=== PATIENT | male | born 1945 | race Caucasian/White ===

== ENCOUNTER 2020-01-19 07:33 | Outpatient (CLI) | payer MEDICARE, SELFPAY ==
--- NOTE | 2020-01-19 08:52 | ECG_ITS ---
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 Interpretive Statements NAME OF STUDY: LEXISCAN SESTAMIBI STRESS TEST INDICATION: Chest Pain, LEXISCAN STRESS TEST ORDERING PHYSICIAN: Maurisio CLINICAL INFORMATION: Chest pain INTERPRETATION: 1. The patient was brought to the laboratory where Lexiscan was infused over 20 seconds. The resting blood pressure was 147/81. Maximum blood pressure was 147/81. The resting heart rate was 56 beats per minute. The maximum heart rate is 83 beats per minute. 2. The baseline electrocardiogram reveals sinus bradycardia with a right ventricular conduction delay and lack of R wave progression leads V1 through V4. 3. With Lexiscan infusion, there were no ST segment changes to suggest ischemia. 4. The patient experienced no symptoms or arrhythmias during the examination. CONCLUSION: 1. Unremarkable Lexiscan infusion. 2. Nuclear imaging to follow. Electronically Signed On 01-19-2020 15:38:00 CDT by Sander Forde M.D. [email or web address] [email or web address].Lodestone Social Media/store/OM/[id number]/[id number]
[2020-01-19 08:53] VITALS: BMI 32.1
--- NOTE | 2020-01-19 08:53 | NMCV_ITS ---
NM jr perf SPECT r/s* [id number] Jhon Marcos Age: 74 Gender: M : 1945 Exam Date: 01/19/2020 08:53 Ordering Phys: Sander Forde MD ([email or web address]) Technologist: PATTIE Chaudhry Exam Location: [facility] Indications: CHEST PAIN STRESS TEST Please see separate stress test report in [facility] for full findings IMAGE PROTOCOL Rest/Stress 1 Lexiscan Day Radiopharmaceutical Dose (mCi) Administration Site Administered by Rest: Tc-99m 10.9 IV PATTIE Chaudhry Sestamibi Stress:Tc-99m 32.1 IV PATTIE Chaudhry Sestamibi Rest: 19-Jan-2020 60 Discovery 630 Stress: 19-Jan-2020 30 Discovery 630 0.4mg Lexiscan. Images obtained in supine and prone position. SPECT RESULTS Technical Quality: Excellent Raw Data Analysis: Normal Image Corrections: No attenuation or motion correction applied Summed Stress Score: 3 Summed Rest Score: 2 Summed Difference Score: 2 PERFUSION FINDINGS Small sized perfusion abnormality of mild severity of basal to mid inferolateral wall with reversibility noted in mid inferolateral and apical lateral wall on stress images. FUNCTIONAL RESULTS (calculated via Gated SPECT) Stress Image LV EF (%): 76 Stress EDV (mL):96 TID: 0.82 Stress ESV (mL):23 FUNCTIONAL FINDINGS: The left ventricle is normal in size. Transient Ischemia Dilatation of 0.82. There is normal left ventricular systolic function. The left ventricular ejection fraction is normal with a value of 76%. There is normal left ventricular wall thickening. Normal end-diastolic and end-systolic volumes. IMPRESSIONS 1. Small sized perfusion abnormality of mild severity of basal to mid inferolateral wall with reversibility noted in mid inferolateral and apical lateral wall on stress images. 2. This is suggestive of small area of ischemia in circumflex artery territory. 3. Overall left ventricular systolic function is normal without regional wall motion abnormalities. 4. The left ventricular ejection fraction is normal with a value of 76%. 5. No prior similar studies to compare Gabriela Church MD (Electronically Signed) Final Date: 19 January 2020 16:24 S
[2020-01-19 09:41] VITALS: BP 143/74; PULSE 78
[2020-01-19] MEDS: regadenoson 0.4 Mg/5 ml Syringe IVP (09:41)
== END 2020-01-19 07:34 | disposition home or self-care (01) ==
LOC: RAD 07:40 → CDL 09:14
PROVIDERS: PCP Family Medicine; Visit Provider Internal Medicine Cardiovascular Disease
DX: R07.9 Chest pain, unspecified (principal); I25.9 Chronic ischemic heart disease, unspecified
CPT/HCPCS: 78452; 93017; A9500; J2785

== ENCOUNTER 2020-07-03 13:30 | Inpatient (IN) | payer MEDICARE, SELFPAY ==
[2020-07-03] VITALS (36 sets, daily range): BP systolic 142–185; BP diastolic 68–157; PULSE 91–109; RESP 8–27; TEMP 36.3–37.2; O2SAT 85–100; BMI 27.8
--- NOTE | 2020-07-03 13:49 | XR_ITS ---
WS: [id number] XR chest 1V portable [id number] REASON FOR EXAM: chest pain FINDINGS: The chest is unchanged compared to 07/26/2015. There is mild to moderate tortuosity of the thoracic a daniel. The heart is at the upper limits of normal in size. Calcified granulomatous changes in both hemithoraces. No active pulmonary parenchymal or pleural dise ase is noted. Right shoulder arthroplasty. Severe degenerative arthropathy in the left shoulder joint. XR/XR chest 1V portable [id number] IMPRESSION: No acute chest abnormality.
--- NOTE | 2020-07-03 13:50 | ECG_ITS ---
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1945 Requested By: Yg Mesa Order Number: [id number] Shannan MD: STUART REDMOND Measurements Intervals [place] Rate: 94 P: 47 CO: 169 QRS: -4 QRSD: 102 T: 28 QT: 371 QTc: 465 Interpretive Statements SINUS RHYTHM LOW QRS VOLTAGE IN PRECORDIAL LEADS [QRS DEFLECTION < 1.0 mV IN CHEST LEADS] INCOMPLETE RIGHT BUNDLE BRANCH BLOCK [90+ ms QRS DURATION, TERMINAL R IN V1/V2, 40+ ms S IN I/aVL/V4/V5/V6] Compared to ECG 07/25/2015 22:02:27 Myocardial infarct finding no longer present Electronically Signed On 07-03-2020 18:36:09 COMMUNITY NUTRITION EDUCATOR by STUART REDMOND [email or web address] [email or web address].SecureMedia/store/NU/[id number] f
--- NOTE | 2020-07-03 14:03 | W.ED.GENADLT ---
HPI - General Adult General: Chief complaint: General Medical Stated complaint: WEAK, DIZZY X 3 DAYS Time Seen by Provider: 07/03/20 13:31 History of Present Illness: HPI narrative: 59-year-old male presents emergency room complaining of dizziness nausea has not felt well for the last 1 to 2 weeks.. He has had a couple episodes of chest and abdominal pain. He characterizes the chest discomfort more as pressure he states it radiates to everywhere in his body it is worse with exertion and improves with rest. On one episode he took a sublingual nitro but he is unclear on whether or not it really improved anything. He has had associated shortness of breath with this but no diaphoresis. Patient has a known history of coronary artery disease. Onset (ago): week(s) Location: chest Severity: moderate Quality: aching and crushing Pain Consistency: intermittent Relieving factors: rest Exacerbating factors: movement (Exertion) Associated symptoms: Reports chest pain, decreased appetite, dyspnea, fevers/chills and malaise; Deny confusion, cough, diaphoresis, headache(s), nausea, rash, palpitations, seizures, short of breath, syncope, vomiting or weakness Review of Systems Const: Reports: malaise; Denies: diaphoresis ENMT: Denies: throat pain, ear or mastoid pain, nasal discharge or nasal congestion Card: Reports: chest pain; Denies: palpitations or syncope Resp: Reports: dyspnea GI: Denies: nausea or vomiting : Denies: flank pain, dysuria, urinary frequency or urinary urgency Skin/Breast: Denies: rash Neuro: Denies: headache(s) or confusion PFSH ED PFSH: Medical History (Updated 07/03/20 @ 16:15 by Yg Voss DO) ASHD (arteriosclerotic heart disease) Diabetes 1.5, managed as type 2 HTN (hypertension) Hyperlipidemia Surgical History (Updated 07/03/20 @ 16:15 by Yg Voss DO) S/P PTCA (percutaneous transluminal coronary angioplasty) Family History Mother Dementia Denies family history of Family history of premature coronary artery disease Social History Smoking and tobacco status: former smoker Alcohol intake: never Household members: spouse Marital status: service: No Current occupational status: retired Physical Exam Const: COMMON NORMALS: no acute distress GENERAL APPEARANCE: cooperative and comfortable ORIENTATION/CONSCIOUSNESS: Yes awake, Yes oriented to person, Yes oriented to place and Yes oriented to time HENMT: COMMON NORMALS: normocephalic, atraumatic and hearing grossly normal bilaterally HEAD & SCALP: normocephalic and atraumatic Eye: COMMON NORMALS: Equal, round and reactive pupils present, EOMs intact bilaterally and no scleral icterus EYELID: eyelid abnormality (Inner aspects eyelids absent any vascular markings) CONJUNCTIVA: Yes conjunctival abnormal (Pale no blood vessel markings noted whatsoever) PUPIL: Yes Equal, round and reactive pupils present Neck/C-Spine: COMMON NORMALS: no JVD Resp: COMMON NORMALS: normal respiratory effort, No retractions, No use of accessory muscles and clear to auscultation bilaterally AUSCULTATION: clear to auscultation bilaterally Cardio: COMMON NORMALS: no JVD, regular rate, regular rhythm and No murmurs present (Cardio) RATE: regular rate RHYTHM: regular rhythm GI: COMMON NORMALS: Soft to palpation and No hepatosplenomegaly present AUSCULTATION: Yes normoactive bowel sounds PALPATION: Yes Soft to palpation, No Tenderness to palpation present (GI), No Guarding due to palpation present (GI) and Yes No hepatosplenomegaly present Extremity: COMMON NORMALS: normal to inspection, capillary refill normal, no clubbing, cyanosis or edema and no calf tenderness NARRATIVE EXTREMITY EXAM: Skin excessively pale, no cyanosis GENERAL: Yes edema (Trace lower extremity edema) Neuro: SENSORIUM/ORIENTATION: Yes oriented to person, Yes oriented to place and Yes oriented to time Skin: COMMON NORMALS: no rashes or lesions noted GENERAL SKIN EXAM: no rashes or lesions noted Course Vital Signs: Vital signs: Vital Signs Temperature 98.1 F 07/03/20 13:35 Pulse Rate 96 07/03/20 13:35 Respiratory Rate 18 07/03/20 13:35 Blood Pressure 159/68 07/03/20 13:35 Pulse Oximetry 95 07/03/20 13:35 MDM - General Adult MDM Narrative: Medical decision making narrative: Hemoglobin is 4.6 creatinine is also elevated at 3.3 his usual creatinine is just below 2. Anemia labs done blood products were ordered we will go ahead and admit him transfusion we will give him Protonix as well. His stool was markedly heme positive is for prescription troponin is 35 we are waiting on a second 1 his white count is 22 interestingly his MCV is [address] Montes he will admit and see the patient in the emergency room orders are written. Lab Data: Labs: Lab Results 07/03/20 07/03/20 07/03/20 Range/Units 14:25 14:25 14:25 WBC 22.0 H (4.0-10.0) 10^3/ uL RBC 1.65 L (4.1-5.3) 10^6/u L Hgb 4.6 L* (11.7-16.6) g/dL Hct 15.0 L* (42.0-52.0) % MCV 90.9 (80-94) fL MCH 27.9 L (28.0-34.0) pg MCHC 30.7 (30.0-36.0) g/dL RDW 16.0 H (12.1-15.1) % Plt Count 362 (130-400) 10^3/c mm MPV 9.8 (7.4-10.4) fL Neut % (Auto) 76.7 % Lymph % (Auto) 15.4 % [place] % (Auto) 5.4 % Eos % (Auto) 0.0 % Baso % (Auto) 0.0 % Neut # (Auto) 16.89 H (1.8-7.7) 10^3/u L Lymph # (Auto) 3.4 (0.8-4.8) 10^3/u L [place] # (Auto) 1.2 H (0.2-0.9) 10^3/u L Eos # (Auto) 0.0 (0.0-0.8) 10^3/u L Baso # (Auto) 0.0 (0.0-0.1) 10^3/u L Nucleated RBC % (a uto) 0.3 % Nucleated RBCs # 0.1 /100WBC Sodium 132 L (136-145) mmol/L Potassium 4.8 (3.5-5.1) mmol/L Chloride 96 L (98-107) mmol/L Carbon Dioxide 12 L (22-29) mmol/L Anion Gap 28.8 H (5-19) BUN 98 H* (8-23) mg/dL Creatinine 3.3 H (0.7-1.2) mg/dL GFR Calculation Not Reportable Glucose 203 H (65-115) mg/dL Calculated Osmolal ity 310 H (285-295) mOsm/k g Calcium 9.3 (8.5-10.5) mg/dL Total Bilirubin 0.2 (0.15-1.2) mg/dL AST 7 (0-40) U/L ALT 10 (0-41) U/L Alkaline Phosphata se 91 (40-130) IU/L Troponin T Baselin e 35 H (0-15) ng/L Total Protein 6.0 L (6.6-8.7) g/dL Albumin 3.9 (3.5-5.2) g/dL Globulin 2.1 (1.3-4.6) g/dL Blood Type Rho(D) Type Antibody Screen Crossmatch 07/03/20 Range/Units 14:25 WBC (4.0-10.0) 10^3/ uL RBC (4.1-5.3) 10^6/u L Hgb (11.7-16.6) g/dL Hct (42.0-52.0) % MCV (80-94) fL MCH (28.0-34.0) pg MCHC (30.0-36.0) g/dL RDW (12.1-15.1) % Plt Count (130-400) 10^3/c mm MPV (7.4-10.4) fL Neut % (Auto) % Lymph % (Auto) % [place] % (Auto) % Eos % (Auto) % Baso % (Auto) % Neut # (Auto) (1.8-7.7) 10^3/u L Lymph # (Auto) (0.8-4.8) 10^3/u L [place] # (Auto) (0.2-0.9) 10^3/u L Eos # (Auto) (0.0-0.8) 10^3/u L Baso # (Auto) (0.0-0.1) 10^3/u L Nucleated RBC % (a uto) % Nucleated RBCs # /100WBC Sodium (136-145) mmol/L Potassium (3.5-5.1) mmol/L Chloride (98-107) mmol/L Carbon Dioxide (22-29) mmol/L Anion Gap (5-19) BUN (8-23) mg/dL Creatinine (0.7-1.2) mg/dL GFR Calculation Glucose (65-115) mg/dL Calculated Osmolal ity (285-295) mOsm/k g Calcium (8.5-10.5) mg/dL Total Bilirubin (0.15-1.2) mg/dL AST (0-40) U/L ALT (0-41) U/L Alkaline Phosphata se (40-130) IU/L Troponin T Baselin e (0-15) ng/L Total Protein (6.6-8.7) g/dL Albumin (3.5-5.2) g/dL Globulin (1.3-4.6) g/dL Blood Type O Positive Rho(D) Type Positive Antibody Screen Negative Crossmatch See Detail Discharge Plan Discharge Patient Disposition: Admitted As Inpatient Clinical Impression: Anemia, S/P PTCA (percutaneous transluminal coronary angioplasty), Hyperlipidemia, HTN (hypertension), Diabetes 1.5, managed as type 2, ASHD (arteriosclerotic heart disease), Acute GI bleeding, MAYTE (acute kidney injury), Chest pain Condition: Stable Coding Level of Care Code ED Care Management Assistant for Milind Fwd Exam Comprehensive
[2020-07-03 14:33] LABS: Lymphocytes # 3.4 10^3/uL (0.8-4.8); Lymphocytes % 15.4 %; Mean Corpuscular HGB Conc 30.7 g/dL (30.0-36.0); Mean Corpuscular Hemoglobin 27.9 pg (28.0-34.0); Mean Corpuscular Volume 90.9 fL (80-94); Mean Platelet Volume 9.8 fL (7.4-10.4); Monocytes # 1.2 10^3/uL (0.2-0.9); Monocytes % 5.4 %; Neutrophils # 16.89 10^3/uL (1.8-7.7); Neutrophils % 76.7 %; Nucleated Red Blood Cells # 0.1 /100WBC; Nucleated Red Blood Cells % 0.3 %; Platelet Count 362 10^3/cmm (130-400); Red Blood Count 1.65 10^6/uL (4.1-5.3)
[2020-07-03 14:34] LABS: Hemoglobin 4.6 g/dL (11.7-16.6)
[2020-07-03 15:05] LABS: Alanine Aminotransferase 10 U/L (0-41); Albumin Level 3.9 g/dL (3.5-5.2); Alkaline Phosphatase 91 IU/L (40-130); Anion Gap 28.8 (5-19); Aspartate Amino Transferase 7 U/L (0-40); Calcium 9.3 mg/dL (8.5-10.5); Carbon Dioxide 12 mmol/L (22-29); Chloride 96 mmol/L (98-107); Globulin 2.1 g/dL (1.3-4.6); Glucose 203 mg/dL (65-115); Osmolality Calculated 310 mOsm/kg (285-295); Potassium 4.8 mmol/L (3.5-5.1); Sodium 132 mmol/L (136-145); Total Bilirubin 0.2 mg/dL (0.15-1.2); Troponin(5th) Baseline 35 ng/L (0-15)
[2020-07-03 15:06] LABS: Blood Urea Nitrogen 98 mg/dL (8-23)
[2020-07-03] MEDS: pantoprazole 40 mg SDV IVP ×2 (15:47→21:00)
[2020-07-03] MEDS: sodium chloride 0.9% 1,000 ML 999 ML IV (15:48)
--- NOTE | 2020-07-03 15:50 | ECG_ITS ---
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1945 Requested By: Yg Mesa Order Number: [id number] Reading MD: STUART REDMOND Measurements Intervals [place] Rate: 96 P: 48 NH: 179 QRS: -12 QRSD: 90 T: 8 QT: 279 QTc: 354 Interpretive Statements SINUS RHYTHM LOW QRS VOLTAGE IN PRECORDIAL LEADS [QRS DEFLECTION < 1.0 mV IN CHEST LEADS] INFERIOR MYOCARDIAL INFARCTION , PROBABLY OLD [40+ ms Q WAVE AND/OR ST/T ABNORMALITY IN II/aVF] Compared to ECG 07/03/2020 13:51:21 Myocardial infarct finding now present Incomplete right bundle-branch block no longer present Electronically Signed On 07-03-2020 18:40:22 SPARES SCHEDULER by STUART REDMOND [email or web address] general [email or web address] hospital.EpiSensor/store/NU/[id number] f
[2020-07-03 16:38] LABS: Add Urine Microscopic? NO
[2020-07-03 16:45] LABS: Bilirubin Urine Neg (Negative); Blood Urine Neg (Negative); Glucose Urine UA Norm (Normal); Ketones Urine Negative (Negative); Leukocyte Esterase Urine Negative (Negative); Nitrate Urine Negative (Negative); Protein Urine Neg (Negative); Specific Gravity, Urine 1.015 (1.005-1.030); Urine Appearance Clear (CLEAR); Urine Color Straw (Yellow); Urobilinogen Urine Norm (Negative); pH Urine 5 (5-7)
--- NOTE | 2020-07-03 17:24 | P.HP_ITS ---
Providers/Chief Complaint Primary Care Provider: Ramiro Villavicencio MD Chief Complaint: WEAK, DIZZY X 3 DAYS History of Present Illness 75-year-old male with a past medical history essential tremor, erectile dysfunction,hypertension, dyslipidemia, diabetes mellitus, coronary artery disease with hx of multiple PCI/Stent x 7 and prior GI bleed on brelinta who is presented to the hospital with 1 week history of dark stools. This was assoc iated with nausea and emesis of which patient noted one episode to be coffee ground in nature. He started to feel weak and dizzy today. Presented to Dr. Villavicencio( PCP) office today after which he was directed to ER. During this time he also noted intermittent episodes of chest heaviness. Denied shortness of breath. No fever or chills. Denied abdominal pain. Upon arrival to ER his laboratory work up showed WBC of 22.0, hemoglobin 4.6, hematocrit 15.0 and a platelet count of 362. sodium 132, potassium 4.8, chloride 96, bicarb 12, BUN 98 and creatinine of 3.3. No prior creatinine to compare. Troponin T baseline was 35. iron studies, vitamin B12 and folate were sent prior to transfusion and pending. Urinalysis was negative. In ER patient was started on 2 units of PRBC transfusion, IVF and Protonix gtt. Review of Systems General: Reports: 10 or more systems reviewed and unremarkable except in HPI and below Medications/Allergies Home Medications Medication Instructions Recorded Confirmed Last Taken Type alprazolam 1 mg tablet 1 mg PO TID PRN 11/22/19 07/03/20 07/02/20 History amlodipine 5 mg tablet 5 mg PO BID@11/22/19 07/03/20 07/02/20 History atorvastatin 40 mg tablet 40 mg PO DAILY@2100 11/22/19 07/03/20 07/02/20 History bupropion HCl 150 mg 24 hr tablet, 150 mg PO DAILY@0800 11/22/19 07/03/20 07/02/20 History extended release carbidopa 25 mg-levodopa 100 mg 1 tab PO BID@11/22/19 07/03/20 07/02/20 History tablet citalopram 40 mg tablet 40 mg PO DAILY@0800 tab 11/22/19 07/03/20 07/02/20 History clopidogrel 75 mg tablet 75 mg PO DAILY@0800 11/22/19 07/03/20 07/02/20 History metformin 1,000 mg tablet 1,000 mg PO BID@0800,2100 11/22/19 07/03/20 07/02/20 History montelukast 10 mg tablet 10 mg PO DAILY@0800 11/22/19 07/03/20 07/02/20 History nitroglycerin 0.4 mg sublingual 0.4 mg SUBLINGUAL Q5M PRN 11/22/19 07/03/20 Unknown History tablet propranolol 80 mg capsule,24 80 mg PO DAILY@0800 11/22/19 07/03/20 07/02/20 History hr,extended release quetiapine 50 mg tablet 50 mg PO DAILY@0800 11/22/19 07/03/20 07/02/20 History bisoprolol-hydrochlorothiazide 1 tab PO DAILY@0800 07/03/20 07/03/20 07/02/20 History Allergies Allergy/AdvReac Type Severity Reaction Status Date / Time Penicillins Allergy Unknown Unknown Verified 11/22/19 14:11 PFSH Acute PFSH: Medical History (Updated 07/03/20 @ 17:47 by Santosh Goldsmith MD) ASHD (arteriosclerotic heart disease) Diabetes 1.5, managed as type 2 HTN (hypertension) Hyperlipidemia Surgical History (Updated 07/03/20 @ 16:15 by Yg Voss DO) S/P PTCA (percutaneous transluminal coronary angioplasty) Family History Mother Dementia Denies family history of Family history of premature coronary artery disease Social History Smoking and tobacco status: former smoker Alcohol intake: never Household members: spouse Marital status: service: No Current occupational status: retired Vitals/I&O/Wt Last Vital Signs Temp 97.3 F L 07/03/20 16:44 Pulse 102 H 07/03/20 17:00 Resp 21 H 07/03/20 17:00 BP 142/85 07/03/20 17:00 Pulse Ox 95 07/03/20 17:00 07/03/20 07/03/20 07/03/20 06:59 14:59 22:59 Intake Total 0 / 0 Balance 0 / 0 Weight last 48 hrs Weight 90.718 kg Physical Exam Narrative: EXAM NARRATIVE: General : Alert, Awake and oriented x 3 HEENT : Grossly unremarkable CVS : Tachycardic CHEST : non-labored respiration ABD: Soft , Non-tender, Nondistended Ext : no edema, Data : 07/03/20 14:25 07/03/20 14:25 A&P Assessment and plan (1) Acute GI bleeding: Status: Acute (2) MAYTE (acute kidney injury): Status: Acute (3) Chest pain: Status: Acute (4) HTN (hypertension): Status: Acute (5) Hyperlipidemia: Status: Acute (6) S/P PTCA (percutaneous transluminal coronary angioplasty): Status: Acute (7) Acute blood loss anemia: Status: Acute (8) Leukocytosis: Status: Acute (9) Diabetes 1.5, managed as type 2: Status: Acute Acute blood loss anemia due to GI bleed - Suspected upper - HOLD Plavix 75 mg PO daily - Hb 4.6 on admission - 2 units of PRBC transfusion ordered - Repeat H/H 1 hour post second unit - H/H q6hr after - Keep Hb > 8.0 - Will obtain CT abdomen/pelvis w/o contrast ( due to renal failure ) - General surgery consulted - NPO no exceptions now - Follow up anemia work up sent in ER Chest pain in setting of CAD s/p hx of PCI/Stent x 7 - Will consider cardiology consult - Hold Plavix - Recent stress test in 01/18 noted showing small sized perfusion abnormality in circumflex artery territory. - Will obtain ECHO - Baseline trop - 35 - follow up on repeat - Monitor on telemetry Acute kidney failure - Creatinine 3.3 - Likely due to acute bleed - Continue IVF / PRBC transfusion - Conteh insertion - Monitor urine output - Renally dose medication Leukocytosis - WBC 22.0 - Likely reactive - No obvious source of bleeding - Monitor off antibiotics - Repeat CBC in am - Check Pro-calcitonin Diabetes Mellitus - Hold metformin - q6hr blood sugar checks - Sliding scale insulin Hypertension - Holding home meds due to above - May consider PRN Lopressor Dyslipidemia - Holding statin due to above Essential Tremor - Holding propranolol / Sinemet DVT ppx - SCDS only Prognosis: Guarded Code Status :D/w patient/ - FULL CODE Attestations Medical Necessity Statement*: Patient will likely require over 2 midnight stay in hospital for treatment of profound symptomatic anemia, acute renal insufficiency, leukocytosis requiring blood transfusion, IV fluids in general surgery consultation Time Spent in Patient Care: Greater than 35 minutes (>than 50% of time spent in counselling and/or direct pt care on unit) . Coding Level of Care Code Acute Tree Driller for [facility] Fwd Diagnoses Acute GI bleeding K92.2 MAYTE (acute kidney injury) N17.9 Chest pain R07.9 HTN (hypertension) I10 Hyperlipidemia E78.5 S/P PTCA (percutaneous transluminal coronary angioplasty) Z98.61 Acute blood loss anemia D62 Leukocytosis D72.829 Diabetes 1.5, managed as type 2 E13.9
[2020-07-03 17:32] LABS: Troponin 5 2HR 31.55 ng/L (0-15)
[2020-07-03 17:34] LABS: Troponin 5 2HR Delta -3.45 ABS# (0-10)
[2020-07-03 17:42] LABS: Iron 202 ug/dL (59-158); Percent Saturation 60.6 % (20-50); Total Iron Binding Capacity 333 mcg/dl; Unsaturated Iron Binding 131 ug/dL (112-347); Vitamin B12 150 pg/mL (232-1245)
--- NOTE | 2020-07-03 17:52 | CTR_ITS ---
PROCEDURE INFORMATION: Exam: CT Abdomen And Pelvis Without Contrast Exam date and time: 07/03/2020 6:30 PM Age: 75 years old Clinical indication: Abdominal pain; Other: Pressure; Additional info: Gi bleed, ana maria TECHNIQUE: Imaging protocol: Computed tomography of the abdomen and pelvis without contrast. Radiation optimization: All CT scans at this facility use at least one of these dose optimization techniques: automated exposure control; mA and/or kV adjustment per patient size (includes targeted exams where dose is matched to clinical indication); or iterative reconstruction. COMPARISON: CR Hip 2-3v RIGHT wwo Pelv* [id number] 08/01/2014 9:44 AM RADIATION DOSE METRICS: Total DLP (mGy-cm): 1132.02 FINDINGS: Limitations: The absence of intravenous contrast lessens the sensitivity of this study for solid organ abnormalities. Liver: The liver demonstrates punctate calcifications, consistent with remote granulomatous organism exposure. Gallbladder and bile ducts: The gallbladder is normal. Pancreas: There is left inguinal hernia containing only fatThe pancreas is normal. Spleen: The spleen demonstrates punctate calcifications, consistent with remote granulomatous organism exposure. Adrenal glands: The adrenal glands are normal. Kidneys and ureters: There are multiple simple renal cysts. There is no evidence of hydronephrosis. There is no evidence of renal or ureteral calcifications. Stomach and bowel: Mild diverticulosis is present in the distal colon. There is no evidence of colitis/diverticulitis. Appendix: A normal appendix is identified. Intraperitoneal space: Unremarkable. No free air. No significant fluid collection. Vasculature: The aorta demonstrates mild atherosclerotic calcification. There is no evidence of an abdominal aortic aneurysm. Lymph nodes: Unremarkable. No enlarged lymph nodes. Urinary bladder: Unremarkable as visualized. Reproductive: Unremarkable as visualized. Bones/joints: The lumbar spine demonstrates marked degenerative changes at multiple levels. There are findings suggesting stenosis at L2-L3 and L3-L4. Soft tissues: Unremarkable. CT/CT abdomen pelvis wo con [id number] IMPRESSION: 1. No acute findings. 2. Bilateral renal cysts. 3. Left inguinal hernia containing fat. 4. Lumbar spondylosis COMMENTS: Consistent with the [place] [employer]'s Incidental Findings Committee white paper (J Am Jania Radiol 2018): Any incidental renal lesion less than 1 cm or classified as too small to characterize, or any incidental cystic renal lesion characterized as simple-appearing, is likely benign. No follow-up imaging is recommended for these lesions per consensus recommendations based on imaging criteria. Radiation Dose CTDIVOL = (mGy): DLP = 1132.02 (mGy-cm)
[2020-07-03] MEDS: sodium chloride 0.9% (100 ml) 100 ML (18:20)
[2020-07-03] MEDS: sodium chloride 0.9% 1,000 ML 50 ML IV (18:33)
[2020-07-03 18:57] LABS: Folate Level 7.8 ng/mL (4.5-32.2)
[2020-07-03 19:12] LABS: Glucose Point of Care 157 mg/dL (70-110)
--- NOTE | 2020-07-03 19:29 | PC.NURSE ---
Report received from Sariah COX. Sariah reports stool collected but unable to collect in system. Collected in system by this nurse. Marked collected per Sariah verbal report
--- NOTE | 2020-07-03 19:50 | ECG_ITS ---
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 Measurements Intervals [place] Rate: 98 P: 91 VA: 188 QRS: -17 QRSD: 106 T: -8 QT: 301 QTc: 384 Interpretive Statements SINUS RHYTHM SEPTAL MYOCARDIAL INFARCTION [40+ ms Q WAVE IN V1/V2], OF INDETERMINATE AGE INFERIOR MYOCARDIAL INFARCTION [40+ ms Q WAVE AND/OR ST/T ABNORMALITY IN II/aVF], PROBABLY OLD Compared to ECG 07/03/2020 15:45:36 No significant changes Electronically Signed On 07-04-2020 17:14:32 ADVANCED RESEARCH PROGRAMS DIRECTOR by Gabriela Church M.D. [email or web address]/[id number]
[2020-07-03 20:50] LABS: Glucose Point of Care 162 mg/dL (70-110)
[2020-07-03] MEDS: sodium chloride 0.9% 1,000 ML 100 ML IV (21:00)
[2020-07-03 22:21] LABS: Hematocrit 21.2 % (42.0-52.0); Hemoglobin 6.9 g/dL (11.7-16.6)
[2020-07-03 22:33] LABS: Troponin 5 6HR 33.44 ng/L (0-15)
[2020-07-03 22:34] LABS: Troponin 5 6HR Delta -1.56 ng/L (0-12)
[2020-07-04] VITALS (91 sets, daily range): BP systolic 106–194; BP diastolic 55–132; PULSE 87–152; RESP 14–31; TEMP 36.4–37.1; O2SAT 66–100
[2020-07-04 06:41] LABS: Basophils % 0.1 %; Eosinophils % 0.1 %; Hematocrit 22.7 % (42.0-52.0); Hemoglobin 7.5 g/dL (11.7-16.6); Lymphocytes # 1.7 10^3/uL (0.8-4.8); Lymphocytes % 10.2 %; Mean Corpuscular Hemoglobin 29.5 pg (28.0-34.0); Mean Corpuscular Volume 89.4 fL (80-94); Mean Platelet Volume 9.9 fL (7.4-10.4); Monocytes # 1.8 10^3/uL (0.2-0.9); Monocytes % 10.8 %; Neutrophils # 12.84 10^3/uL (1.8-7.7); Neutrophils % 77.2 %; Nucleated Red Blood Cells # 0.1 /100WBC; Nucleated Red Blood Cells % 0.7 %; Platelet Count 290 10^3/cmm (130-400); Red Blood Count 2.54 10^6/uL (4.1-5.3); Red Cell Distribution Width 15.9 % (12.1-15.1); White Blood Count 16.6 10^3/uL (4.0-10.0)
--- NOTE | 2020-07-04 07:00 | USCV_ITS ---
Jhon Marcos Age: 75 Gender: M : 1945 Exam Date: 07/04/2020 07:24 Ordering Phys: Santosh Goldsmith MD Technologist: Anny Vallecillo Exam Location: [facility] [place] Indication: Chest Pain BP: 138 / 77 HR: 88 Rhythm: Sinus Technical Quality: Adequate MEASUREMENTS (Male / Female) Normal Values 2D ECHO LV Diastolic Diameter PLAX 4.2 cm 4.2 - 5.9 / 3.9 - 5.3 cm LV Systolic Diameter PLAX 2.2 cm LV Chamber Size 3.0 cm IVS Diastolic Thickness 1.3 cm 0.6 - 1.0 / 0.6 - 0.9 cm IVS Systolic Thickness 1.8 cm LVPW Diastolic Thickness 2.2 cm 0.6 - 1.0 / 0.6 - 0.9 cm LVPW Systolic Thickness 2.5 cm RV Chamber Size 3.8 cm LVOT Diameter 2.1 cm LV Ejection Fraction 2D Teich 79.0 % LV Ejection Fraction MOD 2C 64.7 % LV Ejection Fraction 2C AL 64.6 % LA Diameter 3.6 cm LA Width 3.2 cm LA Height 3.5 cm RA Width 2.9 cm RA Height 4.3 cm Aorta at Sinotubular Diameter 2.4 cm M-MODE LV Diastolic Diameter MM 6.0 cm 4.2 - 5.9 / 3.9 - 5.3 cm LV Systolic Diameter MM 4.1 cm LV Ejection Fraction MM Teich 58.6 % IVS Diastolic Thickness MM 1.1 cm 0.6 - 1.0 / 0.6 - 0.9 cm IVS Systolic Thickness MM 1.2 cm LVPW Diastolic Thickness MM 1.5 cm 0.6 - 1.0 / 0.6 - 0.9 cm LVPW Systolic Thickness MM 2.0 cm Aortic Annulus Diameter 3.5 cm LA Ao Ratio MM 1.2 MV E Point Septal Separation 0.7 cm DOPPLER AV Peak Velocity 166.0 cm/s LVOT Peak Velocity 96.0 cm/s AV Area Cont Eq vti 2.4 cm squared AV Area Cont Eq pk 2.0 cm squared MV Area PHT 4.4 cm squared Mitral E to A Ratio 0.9 MV E' Velocity 51.5 cm/s Mitral E to MV E' Ratio 7.1 Mitral E to LV E' Lateral Ratio 5.4 Mitral E to LV E' Septal Ratio 10.3 TR Peak Velocity 190.0 cm/s TR Peak Gradient 14.4 mmHg TV Peak E Velocity 75.0 cm/s Right Atrial Pressure 3.0 mmHg Pulmonary Artery Systolic Pressu 17.4 mmHg PV Peak Velocity 96.0 cm/s RV Acceleration Time 0.2 s RV Ejection Time 0.3 s RV AcT/ET 0.6 FINDINGS Left Ventricle Normal left ventricular size and systolic function, EF 58 %. Grade I/IV diastolic dysfunction (abnormal relaxation filling pattern), normal to mildly elevated filling pressures. Right Ventricle Moderately increased right ventricular size. Transverse echodense structure in the right ventricular apex Right Atrium Moderately increased right atrial size. Left Atrium The left atrium is normal in size. Mitral Valve No gross abnormalities noted Aortic Valve No gross abnormalities noted Tricuspid Valve Trace to mild tricuspid valve regurgitation. Pulmonic Valve Pulmonic valve not well visualized. Pericardium Small pericardial effusion. Aorta Normal ascending aorta dimension. CONCLUSIONS Normal left ventricular size and systolic function, EF 58 %. Grade I/IV diastolic dysfunction (abnormal relaxation filling pattern), normal to mildly elevated filling pressures. Trace to mild tricuspid valve regurgitation. Estimated pulmonary artery peak systolic pressure of 17 mmHg Small pericardial effusion. There are no intracardiac masses. Compared to the study from my 02/27/2015, the pericardial effusion and the enlargement of the right atrium appear to be new Dr Meghan Gillespie MD FACC (Electronically Signed) Final Date: 05 July 2020 01:19 S
[2020-07-04 07:01] LABS: Alanine Aminotransferase 11 U/L (0-41); Albumin Level 3.8 g/dL (3.5-5.2); Alkaline Phosphatase 88 IU/L (40-130); Calcium 8.8 mg/dL (8.5-10.5); Carbon Dioxide 16 mmol/L (22-29); Chloride 104 mmol/L (98-107); Globulin 2.1 g/dL (1.3-4.6); Glucose 162 mg/dL (65-115); Osmolality Calculated 307 mOsm/kg (285-295); Sodium 134 mmol/L (136-145); Total Bilirubin 0.6 mg/dL (0.15-1.2); Total Protein 5.9 g/dL (6.6-8.7)
[2020-07-04 07:07] LABS: Blood Urea Nitrogen 83 mg/dL (8-23)
[2020-07-04 07:08] LABS: Aspartate Amino Transferase 10 U/L (0-40)
[2020-07-04 07:50] LABS: Glucose Point of Care 166 mg/dL (70-110)
[2020-07-04] MEDS: hyDRALAzine 20 mg/mL INJ 1 mL 10 MG IVP (07:56)
--- NOTE | 2020-07-04 08:21 | PC.CHAP ---
Pastoral Care Encounter/Spiritual Assessment Type of Contact [] Declined fitting room maintenance mechanic visit [] Patient/Family/Request visit [] Outpatient visit [] Follow-up visit [] Physician referral [] Code/Alert [] Routine visit [] Staff referral [] Actively dying [] Patient sleeping [] Family support [] [] Out of room [] Palliative care [] [] Receiving care in room [] Pre-surgical visit [] Trauma [] Long length of stay [] ICU visit [] Other: Relational/Emotional Strength [] Patient feels connected with others/family/visitors/staff [] Distress [] Loneliness/isolation [] Abandonment Spirituality of Patient [] Person of Alice [] Attends Zoroastrian of their Alice [] Believes in Prayer [] Reads Bible or Episcopal materials [] There are Spiritual issues to be addressed Community Engagement Leader Interventions [x] Prayer [] Active listening [] Non-anxious presence [] Spiritual/emotional support [] Crisis/trauma care [] Spiritual counseling [] Bereavement support [] Provided bereavement packet [] Provided Bible/devotional materials [] Provided toy/stuffed animal, coloring book to patient or family member [] Provided Communion [] Anointing/Fiatt [] Salvation [x] Completed spiritual assessment [] Other: Impact on Illness or Injury [] Angry [] Fearful [] Anxious [] Often cries [] Exhaustion [] Unable to work [] Unable to attend taoism [] Unable to walk/stand [] Unable to read [] Unable to drive [] Unable to eat/drink [] Unable to sleep [] Unable to be with family [] Patient intubated [] Other: Summary Time spent with patient
[2020-07-04] MEDS: sodium chloride 0.9% 1,000 ML 100 ML IV (09:34)
[2020-07-04 11:33] LABS: Glucose Point of Care 150 mg/dL (70-110)
[2020-07-04] MEDS: pantoprazole 40 mg SDV IVP ×2 (12:32→22:47)
--- NOTE | 2020-07-04 12:54 | PM.PN ---
Subjective Subjective: Interval history: Patient remained stable overnight. No recurrence of chest pressure. Respiratory status stable. Was noted to be hypertensive this morning. Received hydralazine. No further blood emesis or bowel movement. Vitals/I&O/Wt Last Vital Signs Temp 98.0 F 07/04/20 07:30 Pulse 91 07/04/20 09:15 Resp 20 H 07/04/20 09:15 BP 152/73 07/04/20 09:15 Pulse Ox 99 07/04/20 09:15 07/03/20 07/04/20 07/04/20 22:59 06:59 14:59 Intake Total 350 / 350 400 / 750 1000 / 1000 Output Total 1000 / 1000 950 / 950 Balance 350 / 350 -600 / -250 50 / 50 Weight last 48 hrs Weight 90.718 kg Physical Exam Narrative: EXAM NARRATIVE: General : Alert, Awake and oriented x 3 HEENT : Grossly unremarkable CVS : NSR CHEST : non-labored respiration ABD: Soft , Non-tender, Nondistended Ext : no edema, Data : 07/04/20 06:27 07/04/20 06:27 Micro: Microbiology 07/03/20 22:05 Blood Culture - Preliminary Blood SPECIMEN COLLECTED 07/03/20 17:20 Blood Culture - Preliminary Blood SPECIMEN COLLECTED A&P Assessment and plan (1) Acute GI bleeding: Status: Acute (2) MAYTE (acute kidney injury): Status: Acute (3) Chest pain: Status: Acute (4) HTN (hypertension): Status: Acute (5) Hyperlipidemia: Status: Acute (6) S/P PTCA (percutaneous transluminal coronary angioplasty): Status: Acute (7) Acute blood loss anemia: Status: Acute (8) Leukocytosis: Status: Acute (9) Diabetes 1.5, managed as type 2: Status: Acute Acute blood loss anemia due to GI bleed - Suspected upper - HOLD Plavix 75 mg PO daily - Hb 4.6 on admission - 2 units of PRBC transfusion ordered - Repeat H/H improved to 7.5 - Additional unit of PRBC x 1 ordered now - H/H q8hr after transfusion - Keep Hb > 8.0 due to cardiac history - CT abdomen/pelvis w/o contrast - no acute abnormality - General surgery consulted - NPO no exceptions now - Follow up anemia work up sent in ER - Likely will require EGD - Continue on protonix gtt. Chest pain in setting of CAD s/p hx of PCI/Stent x 7 - Will consider cardiology consult - Hold Plavix - Recent stress test in 01/18 noted showing small sized perfusion abnormality in circumflex artery territory. - Will obtain ECHO - pending - Baseline trop - 35 - follow up on repeat - Monitor on telemetry - Maintain Hb > 8.0 Acute kidney failure - Creatinine 3.3 - 2.6 - Likely due to acute bleed - Continue IVF / PRBC transfusion - Monitor urine output - Renally dose medication - Obtain renal US Leukocytosis - Improving off abx - WBC 22.0 - 16.6 - Likely reactive - No obvious source of infection - Monitor off antibiotics - Repeat CBC in am Diabetes Mellitus - Hold metformin - q6hr blood sugar checks - Sliding scale insulin Hypertension - Holding home meds due to above - May consider PRN hydralazine 5 mg IV Q4hr - For SBP > 170 or DBP > 100 Dyslipidemia - Holding statin due to above Essential Tremor - Holding propranolol / Sinemet DVT ppx - SCDS only Code Status :D/w patient/ - FULL CODE Disposition : Likely to return home once medically stable. Ok to transfer to [facility] today. Attestations Medical Necessity Statement*: Will require further hospitalization for GI bleed, anemia requiring transfusion, renal failure requiring IV fluids anticipated additional 1 to 2 days in hospital. Time Spent in Patient Care: Greater than 35 minutes (>than 50% of time spent in counselling and/or direct pt care on unit). 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
[2020-07-04 17:41] LABS: Glucose Point of Care 148 mg/dL (70-110)
--- NOTE | 2020-07-04 18:03 | P.CONIM_ITS ---
Providers/Reason For Consult Consulting Physican/Specialty*: Ramiro Villavicencio MD Reason for Consult*: GI bleed Attending Physician: Santosh Goldsmith Primary Care Provider: Ramiro Villavicencio MD History of Present Illness History of Present Illness Jhon Marcos is a 75 year old male who was admitted to the hospital recently with 1 week history of dark stools. Patient also had an episode of nausea and vomiting 1 of which was coffee-ground in nature. He was seen by his PCP who referred him to the ER and he was noted to have a hemoglobin of 4.6 on initial evaluation. At present he denies any abdominal pain, nausea, vomiting, denies any history of peptic ulcer disease. No evidence of active GI bleed. He states that his last colonoscopy was many years ago Review of Systems General: Reports: 10 or more systems reviewed and unremarkable except in HPI and below Meds/Allergies Home Medications and Allergies Home Medications Medication Instructions Recorded Confirmed Last Taken Type alprazolam 1 mg tablet 1 mg PO TID PRN 11/22/19 07/03/20 07/02/20 History amlodipine 5 mg tablet 5 mg PO BID@11/22/19 07/03/20 07/02/20 History atorvastatin 40 mg tablet 40 mg PO DAILY@209911/22/19 07/03/20 07/02/20 History bupropion HCl 150 mg 24 hr tablet, 150 mg PO DAILY@79911/22/19 07/03/20 07/02/20 History extended release carbidopa 25 mg-levodopa 100 mg 1 tab PO BID@11/22/19 07/03/20 07/02/20 History tablet citalopram 40 mg tablet 40 mg PO DAILY@0800 tab 11/22/19 07/03/20 07/02/20 History clopidogrel 75 mg tablet 75 mg PO DAILY@79911/22/19 07/03/20 07/02/20 History metformin 1,000 mg tablet 1,000 mg PO BID@0800,209911/22/19 07/03/20 07/02/20 History montelukast 10 mg tablet 10 mg PO DAILY@0800 11/22/19 07/03/20 07/02/20 History nitroglycerin 0.4 mg sublingual 0.4 mg SUBLINGUAL Q5M PRN 11/22/19 07/03/20 Unknown History tablet propranolol 80 mg capsule,24 80 mg PO DAILY@0800 11/22/19 07/03/20 07/02/20 History hr,extended release quetiapine 50 mg tablet See Rx Instructions .ROUTE .COMPLEX 11/22/19 07/03/20 07/02/20 History bisoprolol-hydrochlorothiazide 1 tab PO DAILY@0800 07/03/20 07/03/20 07/02/20 History Allergies Allergy/AdvReac Type Severity Reaction Status Date / Time Penicillins Allergy Unknown Unknown Verified 07/03/20 21:12 Current Medications Current Medications Generic Name Dose Route Start Last Admin Trade Name Freq PRN Reason Stop Dose Admin Sodium Chloride 1,000 mls @ 50 mls/hr 07/03/20 17:00 07/03/20 18:33 Sodium Chloride 0.9% IV 50 mls/hr .Q20H JOSEPHINE Administration Sodium Chloride 1,000 mls @ 100 mls/hr 07/03/20 18:00 07/04/20 15:41 Sodium Chloride 0.9% IV Not Given .Q10H JOSEPHINE Sodium Chloride 1,000 mls @ 100 mls/hr 07/03/20 21:57 07/04/20 09:37 Sodium Chloride 0.9% IV Not Given .Q10H JOSEPHINE Insulin Aspart 0 unit 07/03/20 18:00 07/04/20 12:00 Insulin Aspart 100 Unit/1 Ml SUBCUT Not Given WM&BEDTIME JOSEPHINE Protocol Pantoprazole Sodium 40 mg 07/03/20 21:57 07/04/20 12:32 Pantoprazole 40 Mg Sdv IVP 40 mg Q12H JOSEPHINE Administration PFSH Acute PFSH: Medical History ASHD (arteriosclerotic heart disease) Diabetes 1.5, managed as type 2 HTN (hypertension) Hyperlipidemia Surgical History S/P PTCA (percutaneous transluminal coronary angioplasty) Family History Mother Dementia Denies family history of Family history of premature coronary artery disease Social History Smoking and tobacco status: former smoker Alcohol intake: never Household members: spouse Marital status: service: No Current occupational status: retired Vitals/I&O/Wt Last Vital Signs Temp 97.6 F 07/04/20 15:42 Pulse 95 07/04/20 16:00 Resp 20 H 07/04/20 16:00 BP 130/101 07/04/20 16:00 Pulse Ox 99 07/04/20 16:00 07/04/20 07/04/20 07/04/20 06:59 14:59 22:59 Intake Total 400 / 1750 1000 / 1700 700 / 1700 Output Total 1000 / 1000 1625 / 1625 Balance -600 / 750 -625 / 75 700 / 75 Weight last 48 hrs Weight 200 lb Physical Exam Narrative: EXAM NARRATIVE: HEENT: Normocephalic Eye: Sclera /conjunctiva normal Respiratory and chest: Bilateral clear breath sounds on auscultation Cardiovascular: Normal S1 and S2 heart sounds Abdomen: Soft to palpation Neurological: Oriented to place person and time Skin: Intact, no lesions appreciated on gross exam Data Micro: Micro: Microbiology 07/03/20 17:20 Blood Culture - Pr eliminary Blood NEGATIVE TO ALONDRA E 07/03/20 22:05 Blood Culture - Pr eliminary Blood SPECIMEN [facility] JIMENEZ A&P Assessment and plan (1) Anemia: 75-year-old male with hemoglobin of 4.4 who is hemodynamically stable with no evidence of active GI bleed. Patient also has acute renal failure, he will need resuscitation and blood transfusion. If patient continues to remain stable with no evidence of active GI bleed we will schedule him for an outpatient EGD and colonoscopy since his been 5 years since he had his last colonoscopy. Once his hemoglobin remained stable we can restart his Plavix Status: Acute Coding Level of Care Code Acute Library Consultant for [facility] Fwd Diagnoses Anemia D64.9
[2020-07-04 21:46] LABS: Glucose Point of Care 150 mg/dL (70-110)
[2020-07-05] VITALS (38 sets, daily range): BP systolic 130–177; BP diastolic 74–124; PULSE 20–114; RESP 16–24; TEMP 36.6–37.1; O2SAT 90–100
[2020-07-05] MEDS: sodium chloride 0.9% 1,000 ML 100 ML IV ×2 (02:17→17:33)
[2020-07-05 09:40] LABS: Basophils % 0.2 %; Eosinophils # 0.2 10^3/uL (0.0-0.8); Eosinophils % 1.2 %; Hematocrit 28.1 % (42.0-52.0); Hemoglobin 9.3 g/dL (11.7-16.6); Lymphocytes # 1.5 10^3/uL (0.8-4.8); Mean Corpuscular HGB Conc 33.1 g/dL (30.0-36.0); Mean Corpuscular Hemoglobin 29.7 pg (28.0-34.0); Mean Corpuscular Volume 89.8 fL (80-94); Mean Platelet Volume 9.6 fL (7.4-10.4); Monocytes # 1.2 10^3/uL (0.2-0.9); Monocytes % 9.3 %; Neutrophils # 9.81 10^3/uL (1.8-7.7); Neutrophils % 76.1 %; Nucleated Red Blood Cells % 0.3 %; Platelet Count 312 10^3/cmm (130-400); Red Blood Count 3.13 10^6/uL (4.1-5.3); Red Cell Distribution Width 16.8 % (12.1-15.1); White Blood Count 12.9 10^3/uL (4.0-10.0)
[2020-07-05 10:25] LABS: Anion Gap 16.4 (5-19); Blood Urea Nitrogen 46 mg/dL (8-23); Calcium 9.3 mg/dL (8.5-10.5); Carbon Dioxide 19 mmol/L (22-29); Chloride 106 mmol/L (98-107); Glucose 135 mg/dL (65-115); Osmolality Calculated 300 mOsm/kg (285-295); Potassium 3.4 mmol/L (3.5-5.1); Sodium 138 mmol/L (136-145)
[2020-07-05 11:27] LABS: Glucose Point of Care 160 mg/dL (70-110)
[2020-07-05 11:27] LABS: Glucose Point of Care 149 mg/dL (70-110)
--- NOTE | 2020-07-05 12:08 | US_ITS ---
WS: [id number] RENAL ULTRASOUND HISTORY: ana maria COMPARISON: None available. TECHNIQUE: 2-D and color Doppler imaging of the kidney submitted. Right kidney: 11.2 cm x 5.1 cm x 7.7 cm. Moderate increased echogenicity throughout the kidney with poor cortical medullary differentiation. N o hydronephrosis. There are several renal cysts identified. No solid mass. The largest cyst in the mi d kidney measures 3.0 x 2.7 x 3.1 cm. Left kidney: 15.4 cm x 5.9 cm x 6.4 cm. LEFT kidney is enlarged due to multiple cysts. Largest cyst from the inferior kidney measures 7.5 x 6 .6 x 3.6 cm. There is poor cortical medullary differentiation and increased echogenicity. Aorta: Negative. Urinary Bladder: Minimally distended bladder. US/US renal BI* [id number] IMPRESSION: 1. No hydronephrosis. 2. Moderate bilateral chronic medical renal disease. 3. Bilateral renal cysts.
--- NOTE | 2020-07-05 15:05 | PC.NURSE ---
BM patient went to restroom, had dark tarry stool. No bright red blood noted. Nurse unable to collect sample.
--- NOTE | 2020-07-05 15:34 | P.PN_ITS ---
Subjective Subjective: Interval history: 07/04 Patient remained stable overnight. No recurrence of chest pressure. Respiratory status stable. Was noted to be hypertensive this morning. Received hydralazine. No further blood emesis or bowel movement. 07/05 No recurrance of chest pain, hematemasis or melena. Tolerating po intake. Vitals/I&O/Wt Last Vital Signs Temp 98 F 07/05/20 04:00 Pulse 106 H 07/05/20 14:00 Resp 16 07/05/20 12:00 BP 153/124 07/05/20 12:00 Pulse Ox 96 07/05/20 12:00 07/05/20 07/05/20 07/05/20 06:59 14:59 22:59 Intake Total 320 / 3220 440 / 440 Output Total 1600 / 3225 800 / 800 Balance -1280 / -5 -360 / -360 Physical Exam Narrative: EXAM NARRATIVE: General : Alert, Awake and oriented x 3 HEENT : Grossly unremarkable CVS : NSR CHEST : non-labored respiration ABD: Soft , Non-tender, Nondistended Ext : no edema, Data : 07/05/20 09:33 07/05/20 09:33 Micro: Microbiology 07/03/20 22:05 Blood Culture - Preliminary Blood SPECIMEN COLLECTED 07/03/20 17:20 Blood Culture - Preliminary Blood Gram Negative Rods Gram positive cocci A&P Assessment and plan (1) Acute GI bleeding: Status: Acute (2) MAYTE (acute kidney injury): Status: Acute (3) Chest pain: Status: Acute (4) HTN (hypertension): Status: Acute (5) Hyperlipidemia: Status: Acute (6) S/P PTCA (percutaneous transluminal coronary angioplasty): Status: Acute (7) Acute blood loss anemia: Status: Acute (8) Leukocytosis: Status: Acute (9) Diabetes 1.5, managed as type 2: Status: Acute Acute blood loss anemia due to GI bleed - Suspected upper - Plavix 75 mg PO daily - HELD - Hb 4.6 on admission - 2 units of PRBC transfusion on admission - Repeat H/H improved from 7.5 - 9.3 - Additional unit of PRBC x 1 on 07/04 - Keep Hb > 8.0 due to cardiac history - CT abdomen/pelvis w/o contrast - no acute abnormality - General surgery consulted - No further bleeding - Advance diet to GI soft - Follow up anemia work up sent in ER - Likely will require EGD as outpaient - Change protonix to 40 mg IV BID - Repeat CBC in Am Bacteremia / Leukocytosis - Blx on admit 07/31 -> Gram negative rods/ Gram positive cocci - Will repeat Blood culture - WBC 22.0 - 16.6 -> 12.9 ( improved off abx ) - No obvious source of bacteremia - Will start Cefepime 2g IV q12hr - No hx of MRSA - Afebrile - Will check urine culture Acute kidney failure on possible CKD - Creatinine 3.3 - 2.6 - 2.1 - Likely due to acute bleed - Continue IVF / PRBC transfusion - Monitor urine output - Renally dose medication - Obtain renal US - Nephrology consult Chest pain in setting of CAD s/p hx of PCI/Stent x 7 - Will consider cardiology consult - Hold Plavix - Recent stress test in 01/18 noted showing small sized perfusion abnormality in circumflex artery territory. - Will obtain ECHO - pEF - Baseline trop - 35 - follow up on repeat - Monitor on telemetry - Maintain Hb > 8.0 Diabetes Mellitus - Hold metformin - q6hr blood sugar checks - Sliding scale insulin Hypertension - Resume home meds - Norvasc 5 mg PO daily - Propranolol 40 mg PO BID - Hydralazine 5 mg IV Q4hr PRN - For SBP > 170 or DBP > 100 Dyslipidemia - Lipitor 40 mg PO daily Essential Tremor - Resume propranolol / Sinemet DVT ppx - SCDS only Code Status :D/w patient/ - FULL CODE Disposition : Likely to return home once medically stable. Ok to transfer to med/surg today. Attestations Medical Necessity Statement*: Will require further hospitalization for management of bacteremia, acute kidney injury, GI bleed Time Spent in Patient Care: Greater than 35 minutes (>than 50% of time spent in counselling and/or direct pt care on unit) . 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
[2020-07-05] MEDS: cefepime 2,000 MG in sodium chloride 0.9% (plus) 50 ML 100 MG IV (17:32)
[2020-07-05] MEDS: carbidopa-levodopa 25-100mg Tablet 1 EACH PO (17:32)
[2020-07-05] MEDS: amlodipine 5 mg Tablet PO (17:33)
[2020-07-05] MEDS: propranolol 40 mg Tablet PO (17:33)
[2020-07-05 17:42] LABS: Erythropoietin 381.4 mIU/mL (2.6-18.5)
[2020-07-05 17:49] LABS: Glucose Point of Care 144 mg/dL (70-110)
[2020-07-05 20:36] LABS: Glucose Point of Care 199 mg/dL (70-110)
[2020-07-05] MEDS: pantoprazole 40 mg SDV IVP (21:08)
[2020-07-05] MEDS: atorvastatin 40 mg Tablet PO (21:08)
[2020-07-06] VITALS (9 sets, daily range): BP systolic 146–175; BP diastolic 72–101; PULSE 90–112; RESP 14–22; TEMP 36.8; O2SAT 90–99
[2020-07-06 02:04] LABS: Glucose Point of Care 203 mg/dL (70-110)
[2020-07-06 04:00] LABS: Basophils % 0.1 %; Eosinophils # 0.2 10^3/uL (0.0-0.8); Eosinophils % 1.1 %; Hematocrit 28.6 % (42.0-52.0); Lymphocytes # 2.5 10^3/uL (0.8-4.8); Lymphocytes % 16.4 %; Mean Corpuscular HGB Conc 31.5 g/dL (30.0-36.0); Mean Corpuscular Hemoglobin 29.9 pg (28.0-34.0); Mean Platelet Volume 9.9 fL (7.4-10.4); Monocytes # 1.6 10^3/uL (0.2-0.9); Monocytes % 10.5 %; Neutrophils # 10.57 10^3/uL (1.8-7.7); Neutrophils % 70.6 %; Nucleated Red Blood Cells % 0.2 %; Platelet Count 346 10^3/cmm (130-400); Red Blood Count 3.01 10^6/uL (4.1-5.3); Red Cell Distribution Width 17.2 % (12.1-15.1)
[2020-07-06 04:13] LABS: Alanine Aminotransferase 6 U/L (0-41); Albumin Level 3.9 g/dL (3.5-5.2); Alkaline Phosphatase 93 IU/L (40-130); Anion Gap 14.6 (5-19); Aspartate Amino Transferase 17 U/L (0-40); Blood Urea Nitrogen 36 mg/dL (8-23); Calcium 8.9 mg/dL (8.5-10.5); Carbon Dioxide 20 mmol/L (22-29); Chloride 106 mmol/L (98-107); Globulin 2.5 g/dL (1.3-4.6); Glucose 179 mg/dL (65-115); Osmolality Calculated 297 mOsm/kg (285-295); Potassium 3.6 mmol/L (3.5-5.1); Sodium 137 mmol/L (136-145); Total Bilirubin 0.4 mg/dL (0.15-1.2); Total Protein 6.4 g/dL (6.6-8.7)
[2020-07-06] MEDS: cefepime 2,000 MG in sodium chloride 0.9% (plus) 50 ML 100 MG IV (04:43)
[2020-07-06 08:35] LABS: Glucose Point of Care 167 mg/dL (70-110)
--- NOTE | 2020-07-06 08:58 | PM.CONSULT ---
Providers/Reason For Consult Consulting Physican/Specialty*: Smita Cho DO, telenephrology Reason for Consult*: Acute Kidney Injury Attending Physician: Santosh Goldsmith Primary Care Provider: Ramiro Villavicencio MD History of Present Illness History of Present Illness Jhon Marcos is a 75 year old male presented with GI bleed Meds/Allergies Home Medications and Allergies Home Medications Medication Instructions Recorded Confirmed Last Taken Type alprazolam 1 mg tablet 1 mg PO TID PRN 11/22/19 07/03/20 07/02/20 History amlodipine 5 mg tablet 5 mg PO BID@08,11/22/19 07/03/20 07/02/20 History atorvastatin 40 mg tablet 40 mg PO DAILY@2100 11/22/19 07/03/20 07/02/20 History bupropion HCl 150 mg 24 hr tablet, 150 mg PO DAILY@0800 11/22/19 07/03/20 07/02/20 History extended release carbidopa 25 mg-levodopa 100 mg 1 tab PO BID@11/22/19 07/03/20 07/02/20 History tablet citalopram 40 mg tablet 40 mg PO DAILY@0800 tab 11/22/19 07/03/20 07/02/20 History clopidogrel 75 mg tablet 75 mg PO DAILY@0800 11/22/19 07/03/20 07/02/20 History metformin 1,000 mg tablet 1,000 mg PO BID@0800,2100 11/22/19 07/03/20 07/02/20 History montelukast 10 mg tablet 10 mg PO DAILY@0800 11/22/19 07/03/20 07/02/20 History nitroglycerin 0.4 mg sublingual 0.4 mg SUBLINGUAL Q5M PRN 11/22/19 07/03/20 Unknown History tablet propranolol 80 mg capsule,24 80 mg PO DAILY@0800 11/22/19 07/03/20 07/02/20 History hr,extended release quetiapine 50 mg tablet See Rx Instructions .ROUTE .COMPLEX 11/22/19 07/03/20 07/02/20 History bisoprolol-hydrochlorothiazide 1 tab PO DAILY@0800 07/03/20 07/03/20 07/02/20 History Allergies Allergy/AdvReac Type Severity Reaction Status Date / Time Penicillins Allergy Unknown Unknown Verified 07/03/20 21:12 Current Medications Current Medications Generic Name Dose Route Start Last Admin Trade Name Rita PRN Reason Stop Dose Admin Amlodipine Besylate 5 mg 07/05/20 15:45 07/05/20 17:33 Amlodipine 5 Mg Tablet PO 5 mg DAILY JOSEPHINE Administration Atorvastatin Calcium 40 mg 07/05/20 21:00 07/05/20 21:08 Atorvastatin 40 Mg Tablet PO 40 mg BEDTIME JOSEPHINE Administration Carbidopa/Levodopa 1 each 07/05/20 18:00 07/05/20 17:32 Carbidopa-Levodopa 25-100mg Tablet PO 1 each BID JOSEPHINE Administration Sodium Chloride 1,000 mls @ 100 mls/hr 07/03/20 18:00 07/06/20 00:58 Sodium Chloride 0.9% IV Not Given .Q10H JOSEPHINE Cefepime HCl 2,000 mg/ Sodium 50 mls @ 100 mls/hr 07/05/20 16:30 07/06/20 06:58 Chloride IV Infused Q12H JOSEPHINE Infusion Protocol Insulin Aspart 0 unit 07/03/20 18:00 07/05/20 21:08 Insulin Aspart 100 Unit/1 Ml SUBCUT 4 unit WM&BEDTIME JOSEPHINE Administration Protocol Pantoprazole Sodium 40 mg 07/03/20 21:57 07/05/20 21:08 Pantoprazole 40 Mg Sdv IVP 40 mg Q12H JOSEPHINE Administration Propranolol HCl 40 mg 07/05/20 18:00 07/05/20 17:33 Propranolol 40 Mg Tablet PO 40 mg BID JOSEPHINE Administration PFSH Acute PFSH: Medical History ASHD (arteriosclerotic heart disease) Diabetes 1.5, managed as type 2 HTN (hypertension) Hyperlipidemia Surgical History S/P PTCA (percutaneous transluminal coronary angioplasty) Family History Mother Dementia Denies family history of Family history of premature coronary artery disease Social History Smoking and tobacco status: former smoker Alcohol intake: never Household members: spouse Marital status: service: No Current occupational status: retired Vitals/I&O/Wt Last Vital Signs Temp 98.6 F 07/05/20 21:00 Pulse 92 07/06/20 04:00 Resp 16 07/06/20 04:00 BP 146/84 07/06/20 04:00 Pulse Ox 98 07/06/20 04:00 07/05/20 07/06/20 07/06/20 22:59 06:59 14:59 Intake Total 490 / 1930 50 / 1980 Output Total 220 / 1020 500 / 1520 Balance 270 / 910 -450 / 460 Data Micro: Micro: Microbiology 07/05/20 16:35 Blood Culture - Pr eliminary Blood SPECIMEN [facility] JIMENEZ 07/05/20 16:24 Blood Culture - Pr eliminary Blood SPECIMEN [facility] JIMENEZ Other Data: Attestation for Other Data: I personally reviewed and interpreted the following: Other data: Renal US: Right kidney: 11.2 cm x 5.1 cm x 7.7 cm. Moderate increased echogenicity throughout the kidney with poor cortical medullary differentiation. No hydronephrosis. There are several renal cysts identified. No solid mass. The largest cyst in the mid kidney measures 3.0 x 2.7 x 3.1 cm. Left kidney: 15.4 cm x 5.9 cm x 6.4 cm. LEFT kidney is enlarged due to multiple cysts. Largest cyst from the inferior kidney measures 7.5 x 6.6 x 3.6 cm. There is poor cortical medullary differentiation and increased echogenicity. CT without contrast 07/03: Kidneys and ureters: There are multiple simple renal cysts. There is no evidence of hydronephrosis. There is no evidence of renal or ureteral calcifications. A&P Additional A&P Information Impression: 1. Acute kidney injury, improved, nonoliguric, likely ischemic ATN 2. Anemia due to GI bleed - Hb stable 3. Possible sepsis 4. CAD, Htn, DM, HL DID NOT see patient because he is signing out AMA Consult Attestations Medical Necessity Statement: per primary service Coding Level of Care Code Acute Wireless Sales Representative for Milind Johnston
[2020-07-06] MEDS: sodium chloride 0.9% 1,000 ML 100 ML IV (09:05)
[2020-07-06] MEDS: amlodipine 5 mg Tablet PO (09:06)
[2020-07-06] MEDS: carbidopa-levodopa 25-100mg Tablet 1 EACH PO (09:06)
[2020-07-06] MEDS: propranolol 40 mg Tablet PO (09:06)
--- NOTE | 2020-07-06 09:25 | PC.SOCIAL ---
IMM Page 2 of [facility] explained to patient. He verbalizes understanding and but states he's ready to be discharged anytime the doctor releases him. Initialed, dated, and timed and placed in chart. Copy provided to patient.
[2020-07-06] MEDS: pantoprazole 40 mg SDV IVP (11:34)
--- NOTE | 2020-07-06 12:31 | PC.NURSE ---
patient wanted to leave aMA. Dr Goldsmith aware and sylvia'delicia. 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
--- NOTE | 2020-07-06 16:43 | P.DS_ITS ---
Discharge Providers Date of Admission: 07/03/20 16:22 Date of Discharge: July 06, 2020 Attending Provider at Admission: Santosh Goldsmith Attending Provider at Discharge: Santosh Goldsmith Primary Care Provider: Ramiro Villavicencio MD Diagnoses at Discharge Discharge Diagnosis (1) Acute GI bleeding: Status: Acute (2) MAYTE (acute kidney injury): Status: Acute (3) Chest pain: Status: Acute (4) HTN (hypertension): Status: Acute (5) Hyperlipidemia: Status: Acute (6) S/P PTCA (percutaneous transluminal coronary angioplasty): Status: Acute (7) Acute blood loss anemia: Status: Acute (8) Leukocytosis: Status: Acute (9) Diabetes 1.5, managed as type 2: Status: Acute Reason for Visit Reason for Visit: WEAK, DIZZY X 3 DAYS Hospital Course Hospital Course 75-year-old male with a past medical history essential tremor, erectile dysfunction,hypertension, dyslipidemia, diabetes mellitus, coronary artery disease with hx of multiple PCI/Stent x 7 and prior GI bleed on brelinta who is presented to the hospital with 1 week history of dark stools. This was associated with nausea and emesis of which patient noted one episode to be coff ee ground in nature. He started to feel weak and dizzy today. Presented to Dr. Villavicencio( PCP) office today after which he was directed to ER. During this time he also noted intermittent episodes of chest heaviness. Denied shortness of breath. No fever or chills. Denied abdominal pain. Upon arrival to ER his laboratory work up showed WBC of 22.0, hemoglobin 4.6, hematocrit 15.0 and a platelet count of 362. sodium 132, potassium 4.8, chloride 96, bicarb 12, BUN 98 and creatinine of 3.3. No prior creatinine to compare. Troponin T baseline was 35. Urinalysis was negative. In ER patient was started on 2 units of PRBC transfusion, IVF and Protonix gtt. Upon admission to the hospital after initial 2 units of transfusion patient's hemoglobin had improved to 7.5. Subsequently was transfused an additional unit after which this was increased to 9.3. He did not have any recurrence of GI bleed until 12 10 during which time he noted a dark stool. He was seen by General surgery. His Plavix was held. Plan was to take patient for EGD if any recurrence.CT abdomen pelvis was also performed without contrast due to renal insufficiency. This did not show any evidence of acute intra-abdominal abnormality. In addition to this patient was also noted to have acute renal failure on possible chronic kidney disease. He was started on IV fluids. Creatinine had improved from 3.3 to 2.1. Renal ultrasound was performed which did not show any evidence of hydronephrosis. Nephrology was consulted however not able to see patient as he had left against medical advice. Also was noted to have marked leukocytosis on admission of 22.0 No obvious source of infection was suspected initially and he was not started on antibiotics. His leukocytosis improved to 12.9. Blood cultures were drawn on admission which preliminarily showed Gram-negative rods/Gram-positive cocci. He remained afebrile. He was started on empiric antibiotics until final culture results however in the interim patient understanding the risk had left against medical advice. He was counseled on risk of leaving AMA. Verbalized understanding. Advised to follow up immediately with primary care physician for repeat lab workup. Physical Exam Narrative: EXAM NARRATIVE: General : Alert, Awake and oriented x 3 HEENT : Grossly unremarkable CVS : NSR CHEST : non-labored respiration ABD: Soft , Non-tender, Nondistended Ext : no edema, Discharge Data Data Completed and Pending: Completed Studies During Hospitalization Category Date Time Status CT abdomen pelvis wo con [id number] Urge nt Cat Scan 07/03/20 17:52 Completed XR chest 1V [place] [id number] Stat Exams 07/03/20 13:49 Completed CV echo complete* [id number] Routine Ultrasound 07/04/20 07:00 Completed US renal BI* [id number] Routine Ultrasound 07/05/20 12:08 Completed Pending at discharge Category Date Time Status Blood Culture Sta t Lab 07/03/20 22:05 Results Blood Culture Sta t Lab 07/05/20 16:35 Results Vitals: Last Vital Signs Temp 98.2 F 07/06/20 08:00 Pulse 90 07/06/20 10:00 Resp 21 H 07/06/20 08:00 BP 155/72 07/06/20 09:00 Pulse Ox 97 07/06/20 10:00 Discharge Plan Discharge Patient Disposition: Left Against Medical Advice Condition: Stable Prescriptions: No Action propranolol [Inderal LA] 80 mg capsule,extended release 24 hr 80 mg PO DAILY@0800 RF: 0 amlodipine 5 mg tablet 5 mg PO BID@08,21 RF: 0 nitroglycerin [Nitrostat] 0.4 mg tablet, sublingual 0.4 mg SUBLINGUAL Q5M PRN (Reason: Chest Pain) RF: 0 quetiapine [Seroquel] 50 mg tablet See Rx Instructions .ROUTE .COMPLEX RF: 0 metformin 1,000 mg tablet 1,000 mg PO BID@0800,2100 RF: 0 citalopram 40 mg tablet 40 mg PO DAILY@0800 RF: 0 clopidogrel 75 mg tablet 75 mg PO DAILY@0800 RF: 0 atorvastatin 40 mg tablet 40 mg PO DAILY@2100 RF: 0 bupropion HCl [Wellbutrin XL] 150 mg tablet extended release 24 hr 150 mg PO DAILY@0800 RF: 0 carbidopa-levodopa 25-100 mg tablet 1 tab PO BID@ RF: 0 montelukast 10 mg tablet 10 mg PO DAILY@0800 RF: 0 alprazolam [Xanax] 1 mg tablet 1 mg PO TID PRN (Reason: Anxiety) RF: 0 bisoprolol-hydrochlorothiazide 10-6.25 mg Tablet 1 tab PO DAILY@0800 RF: 0 Referrals: Ramiro Villavicencio MD [Primary Care Provider] - Discharge Attestations Time Spent in Discharge Care*: greater than 30 min Specific Discharge Activities: educating patient, documenting/other paperwork and evaluating patient/reviewing data Status at Discharge: Cognitive status at discharge: cognitively intact , Functional status at discharge: independent ambulation Overall status at discharge: patient is not back to baseline Quality Metrics Clinical Quality Measures During this hospital stay, did patient experience: None Coding Level of Care Code 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
== END 2020-07-06 12:31 | disposition left against medical advice (07) | DRG 378 ==
LOC: ER 16:15 → ICU 18:04
PROVIDERS: Admitting Provider Hospitalist; Emergency Provider Family Medicine; PCP Family Medicine; Visit Provider Hospitalist
DX: K92.2 Gastrointestinal hemorrhage, unspecified (principal); D62 Acute posthemorrhagic anemia; N17.9 Acute kidney failure, unspecified; G25.0 Essential tremor; N52.9 Male erectile dysfunction, unspecified; E11.22 Type 2 diabetes mellitus with diabetic chronic kidney disease; I12.9 Hypertensive chronic kidney disease with stage 1 through stage 4 chronic kidney disease, or unspecified chronic kidney disease; N18.9 Chronic kidney disease, unspecified; E78.5 Hyperlipidemia, unspecified; I25.10 Atherosclerotic heart disease of native coronary artery without angina pectoris; Z95.5 Presence of coronary angioplasty implant and graft; Z87.891 Personal history of nicotine dependence; D72.829 Elevated white blood cell count, unspecified; Z53.29 Procedure and treatment not carried out because of patient's decision for other reasons; Z79.02 Long term (current) use of antithrombotics/antiplatelets
CPT/HCPCS: 12345; 36415; 36416; 36430; 71045; 74176; 76770; 80048; 80053; 81003; 82607; 82668; 82746; 82962; 83010; 83540; 83550; 84484; 85014; 85018; 85025; 86850; 86900; 86920; 87040; 87077; 87086; 87186; 87205; 93005; 93306; 96372; 96375; 99282; C9113; J0360; J0692; J1815; J7030; P9016

== ENCOUNTER 2020-08-29 16:53 | Outpatient (CLI) | payer MEDICARE, SELFPAY | END 2020-08-29 16:54 | disposition home or self-care (01) | PROVIDERS: PCP Family Medicine; Visit Provider Family Medicine | DX: D64.9 Anemia, unspecified (principal) | CPT/HCPCS: 86850; 86900; 86920 ==

== ENCOUNTER → 2020-08-30 08:36 | Day surgery (SDC) | payer MEDICARE, SELFPAY ==
[2020-08-30] VITALS (11 sets, daily range): BP systolic 116–158; BP diastolic 64–77; PULSE 76–92; RESP 18; TEMP -12.8–37.2; O2SAT 100
== END ==
PROVIDERS: PCP Family Medicine; Visit Provider Family Medicine
DX: D64.9 Anemia, unspecified (principal)
CPT/HCPCS: 36415; 36430; 86850; 86900; 86920; P9016

== ENCOUNTER → 2020-09-22 11:43 | Outpatient (BNVA) | payer MEDICARE, SELFPAY | PROVIDERS: PCP Family Medicine; Visit Provider Surgery | DX: Z20.822 Contact with and (suspected) exposure to COVID-19 (principal); K92.2 Gastrointestinal hemorrhage, unspecified | CPT/HCPCS: 87635 ==

== ENCOUNTER 2020-09-26 07:16 | Day surgery (SDC) | payer MEDICARE, SELFPAY ==
[2020-09-22 08:36] VITALS: BMI 29.2
[2020-09-26 07:49] VITALS: BP 160/91; PULSE 100; RESP 18; TEMP 36.8; O2SAT 99
[2020-09-26 07:52] LABS: Glucose Point of Care 129 mg/dL (70-110)
[2020-09-26] MEDS: sodium chloride 0.9% 1,000 ML 30 ML IV (07:52)
--- NOTE | 2020-09-26 08:50 | ANES.PREANE2 ---
Pre-Anesthetic Assessment Pre-Anesthetic Assessment: Height/Weight: Height 1.8 m Weight 95.254 kg Temp Pulse Resp BP Pulse Ox 98.2 F 100 18 160/91 99 09/26/20 07:49 09/26/20 07:49 09/26/20 07:49 09/26/20 07:49 09/26/20 07:49 Preop Diagnosis: panendoscopy Proposed Procedure: Operation Date: 09/26/20 08:30 Proposed Procedures p EGD/colon 50414 [id number] K92.2(Not Applicable) - Gerald Cordero MD s Colonoscopy(Not Applicable) - Gerald Cordero MD Familial anesthetic complications: None Was Beta Georgette taken within 24 hours: Yes Last intake: Intake Last Liquid Date 09/25/20 Last Solid Date 09/24/20 Social: Social History: No alcohol and No tobacco Exam: Pre-Anes Outpt Exam: alert, oriented x 3, clear to auscultation bilaterally and regular rate & rhythm Airway: Cervical ROM: WNL MP: 3 Dentition: Full and Other (has dental device on his lower teeth, he and unable to tell me what its called) CV/HEM: CV/HEM: CAD (7 stents (all placed > 1 year ago) - holding plavix ) and HTN Metabolic: Metabolic: DM and Morbid obesity Neuropsych: Neuropsych: CVA (2x several years ago, no residual deficits) Comments: ? parkinsons Anesthetic Plan: ASA status: 3 Anesthesia: MAC Risk of > 500 ml blood loss (7ml/kg in children): No Meds/Allergies Current Medications: Current Medications Generic Name Dose Route Start Last Admin Trade Name Freq PRN Reason Stop Dose Admin Sodium Chloride 1,000 mls @ 30 ml s/hr 09/26/20 08:00 09/26/20 07:52 Sodium Chloride 0.9% IV 09/27/20 07:59 30 mls/hr .Q24H JOSEPHINE Administration PFSH Anesthesia PFSH: Medical History ASHD (arteriosclerotic heart disease) BPH (benign prostatic hyperplasia) Diabetes 1.5, managed as type 2 History of stroke HTN (hypertension) Hyperlipidemia Myocardial infarct Surgical History H/O esophagogastroduodenoscopy History of colonoscopy (~2016) History of knee replacement (~2014) History of shoulder replacement S/P knee replacement S/P PTCA (percutaneous transluminal coronary angioplasty) S/P shoulder replacement Family History Mother Dementia Denies family history of Family history of premature coronary artery disease Social History Smoking and tobacco status: former smoker Alcohol intake: never Household members: spouse Marital status: service: No Current occupational status: retired Data Anesthesia Other Labs: Laboratory Results - last 48 hr 09/26/20 07:51 POC Glucose 129 H Cardiac Studies: No Data to Display
--- NOTE | 2020-09-26 08:51 | W.PM.OPSUD ---
Surgery/Procedure H&P Update DATE OF PROCEDURE: September 26, 2020 DATE H&P PERFORMED: 09/18/20 H&P UPDATE INFORMATION: I have reviewed H&P completed within last 30 days, I have examined patient prior to procedure and No changes to prior documentation PREOP DIAGNOSIS: panendoscopy PLANNED PROCEDURE: Operation Date: 09/26/20 08:30 Proposed Procedures p EGD/colon [id number] K92.2(Not Applicable) - Gerald Cordero MD s Colonoscopy(Not Applicable) - Gerald Cordero MD
[2020-09-26 10:38] VITALS: BP 111/75; PULSE 83; RESP 18; TEMP 36.6; O2SAT 96
--- NOTE | 2020-09-26 10:39 | ANE.PACU2 ---
Inpatient post-anesthesia follow up: Airway intact: Yes Vital signs: Temperature 97.8 F Pulse Rate 83 Respiratory Rate 18 Blood Pressure 111/75 Pulse Oximetry 96 Oxygen Delivery Me thod Room Air Oxygen Flow Rate Fraction of Inspir ed Oxygen Hydration adequate: Yes Nausea and vomiting: No Pain level: 1 Mental status: Baseline
[2020-09-26 10:57] VITALS: BP 135/74; PULSE 75; RESP 18; O2SAT 99
== END 2020-09-26 11:23 | disposition home or self-care (01) ==
PROVIDERS: PCP Family Medicine; Visit Provider Surgery
PROC: 0DJ08ZZ Inspection of Upper Intestinal Tract, Via Natural or Artificial Opening Endoscopic (ICD-10-PCS; CPT 43235; principal; 2020-09-26 08:30)
PROC: 0DJD8ZZ Inspection of Lower Intestinal Tract, Via Natural or Artificial Opening Endoscopic (ICD-10-PCS; CPT 45378; 2020-09-26 08:30)
DX: D50.9 Iron deficiency anemia, unspecified (principal); N40.0 Benign prostatic hyperplasia without lower urinary tract symptoms; E13.9 Other specified diabetes mellitus without complications; Z79.84 Long term (current) use of oral hypoglycemic drugs; I10 Essential (primary) hypertension; E78.5 Hyperlipidemia, unspecified; I25.2 Old myocardial infarction; Z87.891 Personal history of nicotine dependence; K29.70 Gastritis, unspecified, without bleeding; K57.30 Diverticulosis of large intestine without perforation or abscess without bleeding; I25.10 Atherosclerotic heart disease of native coronary artery without angina pectoris; Z95.5 Presence of coronary angioplasty implant and graft; Z79.02 Long term (current) use of antithrombotics/antiplatelets; E66.01 Morbid (severe) obesity due to excess calories; Z68.29 Body mass index [BMI] 29.0-29.9, adult; Z86.73 Personal history of transient ischemic attack (TIA), and cerebral infarction without residual deficits; G20 Parkinson's disease
CPT/HCPCS: 36416; 43235; 45378; 82962; 96360; 96361; J2704; J7030

== ENCOUNTER 2021-04-06 14:42 | Outpatient (CLI) | payer MEDICARE, SELFPAY ==
--- NOTE | 2021-04-06 14:49 | USCV_ITS ---
Jhon Marcos Age: 75 Gender: M : 1945 Exam Date: 04/06/2021 15:06 Ordering Phys: Ramiro Villavicencio MD Technologist: ROBINSON Exam Location: [facility] – [place] Indication: SOB BP: 130 / 70 HR: 82 Rhythm: Sinus Technical Quality: Adequate MEASUREMENTS (Male / Female) Normal Values 2D ECHO LV Diastolic Diameter PLAX 3.7 cm 4.2 - 5.9 / 3.9 - 5.3 cm LV Systolic Diameter PLAX 2.4 cm LV Chamber Size 3.2 cm IVS Diastolic Thickness 1.3 cm 0.6 - 1.0 / 0.6 - 0.9 cm IVS Systolic Thickness 2.1 cm LVPW Diastolic Thickness 1.4 cm 0.6 - 1.0 / 0.6 - 0.9 cm LVPW Systolic Thickness 2.0 cm RV Chamber Size 3.6 cm LVOT Diameter 2.1 cm LV Ejection Fraction 2D Teich 63.8 % LV Ejection Fraction MOD 2C 70.5 % LV Ejection Fraction 2C AL 71.4 % LA Diameter 4.4 cm LA Width 3.9 cm LA Height 5.3 cm RA Width 3.5 cm RA Height 3.9 cm Aorta at Sinotubular Diameter 3.1 cm M-MODE LV Diastolic Diameter MM 4.7 cm 4.2 - 5.9 / 3.9 - 5.3 cm LV Systolic Diameter MM 1.8 cm LV Ejection Fraction MM Teich 90.2 % IVS Diastolic Thickness MM 1.5 cm 0.6 - 1.0 / 0.6 - 0.9 cm IVS Systolic Thickness MM 1.3 cm LVPW Diastolic Thickness MM 1.3 cm 0.6 - 1.0 / 0.6 - 0.9 cm LVPW Systolic Thickness MM 1.7 cm Aortic Annulus Diameter 3.4 cm LA Ao Ratio MM 1.6 MV E Point Septal Separation 0.3 cm DOPPLER AV Peak Velocity 156.0 cm/s LVOT Peak Velocity 101.0 cm/s AV Area Cont Eq vti 2.0 cm squared AV Area Cont Eq pk 2.2 cm squared MV Area PHT 2.2 cm squared Mitral E to A Ratio 0.8 MV E' Velocity 39.5 cm/s Mitral E to MV E' Ratio 7.6 Mitral E to LV E' Lateral Ratio 6.6 Mitral E to LV E' Septal Ratio 9.1 TR Peak Velocity 143.1 cm/s TR Peak Gradient 8.2 mmHg TR Mean Velocity 100.6 cm/s TR Mean Gradient 4.5 mmHg TR Velocity Time Integral 32.4 cm TV Peak E Velocity 71.0 cm/s PV Peak Velocity 104.0 cm/s RV Acceleration Time 0.1 s RV Ejection Time 0.4 s RV AcT/ET 0.3 FINDINGS Left Ventricle Normal left ventricular size. LV systolic function is normal with EF of 55-60%. No regional wall motion abnormalities. Grade 1 diastolic dysfunction Right Ventricle The right ventricle is normal in size and function. Right Atrium The right atrium is normal in size. Left Atrium The left atrium is normal in size. Mitral Valve Structurally normal mitral valve without significant stenosis or prolapse. There is no mitral regurgitation. Aortic Valve Structurally normal aortic valve without significant sclerosis or stenosis. There is no aortic regurgitation. Tricuspid Valve Structurally normal tricuspid valve without significant stenosis or regurgitation. Pulmonary artery systolic pressure is normal. Pulmonic Valve Structurally normal pulmonic valve without significant stenosis. There is no pulmonic regurgitation. Pericardium Normal pericardium without effusion. Aorta Normal ascending aorta dimension. CONCLUSIONS LV systolic function is normal with EF of 55-60% Grade 1 diastolic dysfunction No significant valvular heart disease is noted Compared to prior echocardiogram from 07/04/2020, no significant changes were noted Pieter Gomez MD (Electronically Signed) Final Date: 08 April 2021 23:16 S
== END 2021-04-06 14:43 | disposition home or self-care (01) ==
LOC: US 14:44
PROVIDERS: PCP Family Medicine; Visit Provider Family Medicine
DX: R06.00 Dyspnea, unspecified (principal); R06.02 Shortness of breath; I51.9 Heart disease, unspecified
CPT/HCPCS: 93306

== ENCOUNTER 2021-08-13 11:05 | Outpatient (CLI) | payer MEDICARE, SELFPAY ==
[2021-08-13 11:38] VITALS: BP 128/68; PULSE 62; RESP 17; TEMP 36.5; O2SAT 98; BMI 27.8
[2021-08-13 12:49] VITALS: BP 140/73; PULSE 60; RESP 16; TEMP 36.5; O2SAT 97
[2021-08-13 13:49] VITALS: BP 127/71; PULSE 61; RESP 16; TEMP 36.6; O2SAT 98
== END 2021-08-13 11:06 | disposition home or self-care (01) ==
LOC: OPS 11:10
PROVIDERS: PCP Family Medicine; Visit Provider Nurse Practitioner Family
DX: U07.1 COVID-19 (principal)
CPT/HCPCS: 96365

== ENCOUNTER 2021-12-12 13:40 | Outpatient (CLI) | payer MEDICARE, SELFPAY ==
--- NOTE | 2021-12-12 13:55 | US_ITS ---
WS: [id number] ULTRASOUND RENAL TECHNIQUE: Ultrasound examination of both kidneys. CLINICAL INFORMATION: CHRONIC KIDNEY DISEASE STAGE 4 COMPARISON: July 25, 2020 FINDINGS: Technically difficult examination. Multiple bilateral simple renal cysts. Increased echogenicity throughout both kidneys with poor corti comedullary differentiation compatible with chronic medical renal disease. No hydronephrosis in eithe r kidney. RIGHT: Echogenicity: Increased Hydronephrosis: None. Perinephric fluid: None. Right kidney measures: 12.9 cm x 5.3 cm x 6.8 cm. LEFT: Echogenicity: Increased Hydronephrosis: None. Perinephric fluid: None. Left kidney measures: 15.5 cm x 5.8 cm x 6.2 cm. Normal visualized aorta. Bladder is decompressed. US/US renal BI* [id number] IMPRESSION: Technically difficult examination. 1. Multiple bilateral simple renal cysts similar in appearance to 2020. 2. Largest on the RIGHT mid kidney measuring 3.4 x 3.3 x 4.3 CM. This measures slightly larger today. 3. Largest cyst LEFT kidney involving the inferior pole measuring 7.2 x 3.6 x 4.4 CM. 4. Bladder is decompressed.
== END 2021-12-12 13:41 | disposition home or self-care (01) ==
LOC: RAD 13:42
PROVIDERS: PCP Family Medicine; Visit Provider Internal Medicine Nephrology
DX: N18.4 Chronic kidney disease, stage 4 (severe) (principal)
CPT/HCPCS: 76770

== ENCOUNTER → 2022-04-08 15:35 | Outpatient (BNVA) | payer MEDICARE, SELFPAY | PROVIDERS: PCP Family Medicine; Visit Provider Internal Medicine Pulmonary Disease | DX: R06.09 Other forms of dyspnea (principal); Z98.61 Coronary angioplasty status; I25.10 Atherosclerotic heart disease of native coronary artery without angina pectoris; T78.40XA Allergy, unspecified, initial encounter; Z87.891 Personal history of nicotine dependence; Z86.16 Personal history of COVID-19 | CPT/HCPCS: 80053; 82785; 85025; 85651; 86003; 86140; 99204 ==

== ENCOUNTER → 2022-05-10 09:35 | Outpatient (BNVA) | payer MEDICARE, SELFPAY | PROVIDERS: PCP Family Medicine; Visit Provider Internal Medicine Pulmonary Disease | DX: R06.09 Other forms of dyspnea (principal); J82.83 Eosinophilic asthma; Z98.61 Coronary angioplasty status; I25.10 Atherosclerotic heart disease of native coronary artery without angina pectoris; J45.909 Unspecified asthma, uncomplicated; Z87.891 Personal history of nicotine dependence; G47.33 Obstructive sleep apnea (adult) (pediatric); Z86.16 Personal history of COVID-19 | CPT/HCPCS: 99214 ==

== ENCOUNTER → 2022-05-23 12:21 | Outpatient (BNVA) | payer MEDICARE, SELFPAY | PROVIDERS: PCP Family Medicine; Visit Provider Internal Medicine Cardiovascular Disease | DX: R07.89 Other chest pain (principal); N17.9 Acute kidney failure, unspecified; I25.10 Atherosclerotic heart disease of native coronary artery without angina pectoris; E13.9 Other specified diabetes mellitus without complications; E78.5 Hyperlipidemia, unspecified; Z98.61 Coronary angioplasty status; I10 Essential (primary) hypertension; D64.9 Anemia, unspecified; Z87.891 Personal history of nicotine dependence; I25.2 Old myocardial infarction | CPT/HCPCS: 99213; 99214 ==

== ENCOUNTER 2022-06-25 09:56 | Outpatient (CLI) | payer MEDICARE, SELFPAY | END 2022-06-25 09:57 | disposition home or self-care (01) | PROVIDERS: PCP Family Medicine; Visit Provider Internal Medicine Pulmonary Disease | DX: R09.89 Other specified symptoms and signs involving the circulatory and respiratory systems (principal) | CPT/HCPCS: 94060; 94618; 94726; 94729 ==

== ENCOUNTER 2022-06-26 07:33 | Outpatient (CLI) | payer MEDICARE, SELFPAY ==
--- NOTE | 2022-06-26 | ECG_ITS ---
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 Interpretive Statements NAME OF STUDY: LEXISCAN SESTAMIBI STRESS TEST INDICATION: Shortness of Breath PROCEDURE: At the baseline, the blood pressure was 125/87 mm Hg with a heart rate of 60 bpm and oxygen saturation of 96%. The electrocardiogram showed sinus rhythm with artifact. Probable old anteroseptal infarct. ??? The Lexiscan was infused over a period of 20 seconds. A total of 0.4 milligrams of Lexiscan was infused. The stress phase was continued for a total of 5 minutes. Heart rate at the end of the stress phase was 97 bpm, oxygen saturation of 99% with a blood pressure 136/79 mm Hg. The EKG at the peak infusion revealed sinus rhythm with artifact. ??? Sestamibi was injected 20 seconds after the Lexiscan infusion. ??? Blood pressure at the end of the recovery phase was 110/93 mm Hg, oxygen saturation of 99% with a heart rate of 82 beats per minute. ??? CONCLUSION: 1. No significant EKG changes with the LexiScan infusion. Interpretation limited by artifact. 2. No LexiScan induced chest pain or cardiac arrhythmia. 3. Normal blood pressure and heart rate response. 4. Sestamibi/sestamibi perfusion scan pending; see separate report. Electronically Signed On 06-29-2022 12:08:56 DINKEY OPERATOR by Gabriela Church M.D. [id number]
[2022-06-26 08:17] VITALS: BMI 30.7
--- NOTE | 2022-06-26 08:18 | NMCV_ITS ---
NM jr perf SPECT r/s* [id number] Jhon Marcos Age: 77 Gender: M : 1945 Exam Date: 06/26/2022 08:56 Ordering Phys: Haider Reveles MD Technologist: PATTIE Chaudhry Exam Location: [facility] Indications: SHORTNESS OF BREATH, CHEST PAIN STRESS TEST Please see separate stress test report in [facility] for full findings IMAGE PROTOCOL Rest/Stress 1 Lexiscan Day Radiopharmaceutical Dose (mCi) Administration Site Administered by Rest: Tc-99m 9.6 IV PATTIE Rich Sestamibi Stress:Tc-99m 32.4 IV PATTIE Rich Sestamibi Rest: 26-Jun-2022 60 Discovery 630 Stress: 26-Jun-2022 30 Discovery 630 0.4mg Lexiscan. Images obtained in supine and prone position. SPECT RESULTS Technical Quality: Excellent Raw Data Analysis: Normal Image Corrections: No attenuation or motion correction applied Summed Stress Score: 3 Summed Rest Score: 4 Summed Difference Score: 1 PERFUSION FINDINGS Small sized perfusion abnormality of mild severity of basal to mid inferolateral lujan on rest and stress images. FUNCTIONAL RESULTS (calculated via Gated SPECT) Stress Image LV EF (%): 66 Stress EDV (mL):99 TID: 0.98 Stress ESV (mL):34 FUNCTIONAL FINDINGS: The left ventricle is normal in size. Transient Ischemia Dilatation of 0.98. There is normal left ventricular systolic function. The left ventricular ejection fraction is normal with a value of 66%. There is normal left ventricular wall thickening. IMPRESSIONS 1. Small sized predominantly fixed perfusion abnormality of mild severity of basal to mid inferolateral lujan. 2. This may represent attenuation artifact or old myocardial infarction in circumflex artery territory. 3. EKG portion of the study will be reported separately. 4. No coronary ischemia based on this study Gabriela Church MD (Electronically Signed) Final Date: 30 June 2022 20:42 S
[2022-06-26] MEDS: regadenoson 0.4 Mg/5 ml Syringe IVP (09:31)
[2022-06-26 09:51] VITALS: BP 110/93; PULSE 88
== END 2022-06-26 07:34 | disposition home or self-care (01) ==
LOC: CDL 07:34
PROVIDERS: PCP Family Medicine; Visit Provider Internal Medicine Pulmonary Disease
DX: R06.02 Shortness of breath (principal); R07.9 Chest pain, unspecified; R94.39 Abnormal result of other cardiovascular function study
CPT/HCPCS: 36415; 78452; 93017; 96374; A9500; J2785

== ENCOUNTER → 2022-08-13 13:59 | Outpatient (BNVA) | payer MEDICARE, SELFPAY | PROVIDERS: PCP Family Medicine; Visit Provider Internal Medicine Pulmonary Disease | DX: R06.09 Other forms of dyspnea (principal); Z98.61 Coronary angioplasty status; T78.40XA Allergy, unspecified, initial encounter; R07.9 Chest pain, unspecified; Z87.891 Personal history of nicotine dependence; Z86.16 Personal history of COVID-19; G47.33 Obstructive sleep apnea (adult) (pediatric) | CPT/HCPCS: 99214 ==

== ENCOUNTER → 2022-08-29 15:14 | Outpatient (BNVA) | payer MEDICARE, SELFPAY | PROVIDERS: PCP Family Medicine; Visit Provider Internal Medicine | DX: R06.09 Other forms of dyspnea (principal); I10 Essential (primary) hypertension; I25.10 Atherosclerotic heart disease of native coronary artery without angina pectoris; D64.9 Anemia, unspecified; N17.9 Acute kidney failure, unspecified; E13.9 Other specified diabetes mellitus without complications; Z79.84 Long term (current) use of oral hypoglycemic drugs; E78.5 Hyperlipidemia, unspecified; Z98.61 Coronary angioplasty status; Z87.891 Personal history of nicotine dependence; I25.2 Old myocardial infarction | CPT/HCPCS: 99214 ==

== ENCOUNTER 2023-03-21 07:25 | Outpatient (RCR) | payer MEDICARE, SELFPAY ==
[2023-03-21] VITALS (10 sets, daily range): BP systolic 122–169; BP diastolic 61–92; PULSE 63–71; RESP 18; TEMP 36.6–37; O2SAT 94–100
[2023-03-21 07:56] LABS: Hematocrit 17.9 % (37-53)
--- NOTE | 2023-03-21 08:00 | PC.NURSE ---
Pt to GI infusions for blood transfusion. Hg today critical at 5.5. Dr. Kinney, onsite case manager physician for Issa Zambrano, notified. Pt to receive 2 units PRBCs today and return to clinic on Friday for repeat lab work.
[2023-03-21] MEDS: sodium chloride 0.9% 100 mL Bag 50 ML IV ×2 (09:28→09:59)
--- NOTE | 2023-03-21 12:07 | PC.NURSE ---
Pt tolerated 2 units of PRBCs without difficulty. No reaction noted. Pt denies SOB or difficulty breathing. VSS. Pt states he feels a little weak but not significant. Stands and transfers without assist. Discharged home with . Pt instructed to return to ED for worsening symptoms and to follow up at [facility] on Friday for repeat labs and evaluation. Pt and verbalized understanding.
== END 2023-03-27 23:59 | disposition home or self-care (01) ==
LOC: GILAB 07:25
PROVIDERS: PCP Family Medicine; Visit Provider Electrodiagnostic Medicine
DX: D64.9 Anemia, unspecified (principal)
CPT/HCPCS: 36415; 36430; 85014; 85018; 86850; 86900; 86920; P9016

== ENCOUNTER 2023-03-27 17:33 | Inpatient (IN) | payer MEDICARE, SELFPAY ==
[2023-03-27] VITALS (19 sets, daily range): BP systolic 96–163; BP diastolic 60–98; PULSE 64–89; RESP 16–29; TEMP 35.8–36.6; O2SAT 94–100
--- NOTE | 2023-03-27 17:51 | ECG_ITS ---
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 Measurements Intervals [place] Rate: 66 P: 34 MN: 192 QRS: -26 QRSD: 99 T: -3 QT: 395 QTc: 416 Interpretive Statements SINUS RHYTHM LOW QRS VOLTAGE IN PRECORDIAL LEADS [QRS DEFLECTION < 1.0 mV IN CHEST LEADS] MINIMAL VOLTAGE CRITERIA FOR LVH, CONSIDER NORMAL VARIANT [MEETS CRITERIA IN ONE OF: R(aVL), S(V1), R(V5), R(V5/V6)+S(V1)] INFERIOR MYOCARDIAL INFARCTION , OF INDETERMINATE AGE [40+ ms Q WAVE AND/OR ST/T ABNORMALITY IN II/aVF] ANTEROSEPTAL MYOCARDIAL INFARCTION , OF INDETERMINATE AGE [40+ ms Q WAVE IN V1-V4] Compared to ECG 07/04/2020 00:35:50 Low QRS voltage now present Myocardial infarct finding still present Electronically Signed On 03-27-2023 18:59:55 CDT by Pieter Gomez M.D. [id number]
[2023-03-27] MEDS: morphine 4 mg/mL SDV 1 mL IVP (18:05)
[2023-03-27] MEDS: ciprofloxacin 400 MG/200 ML PREMIX 200 MG IV (18:05)
[2023-03-27] MEDS: ondansetron 2 mg/ML SDV 2 mL 4 MG IVP ×2 (18:05→21:19)
[2023-03-27] MEDS: metroNIDAZOLE IV 500 MG/100 ML PREMIX 100 MG IV (18:06)
[2023-03-27] MEDS: sodium chloride 0.9% 1,000 ML 999 ML IV (18:07)
--- NOTE | 2023-03-27 18:07 | ANES.PREANE2 ---
Pre-Anesthetic Assessment Height/Weight: Height 1.8 m Weight 102.512 kg Temp Pulse Resp BP Pulse Ox O2 Del Method O2 Flow Rate 97.9 F 67 25 H 143/91 94 Nasal Cannula 4 03/27/23 17:36 03/27/23 17:36 03/27/23 17:36 03/27/23 17:36 03/27/23 17:36 03/27/23 17:36 03/27/23 17:36 Operation Date: 03/27/23 18:30 Proposed Procedures p Exploratory Laparotomy(Not Applicable) - Eric Light DO Familial anesthetic complications: None Was Beta Georgette taken within 24 hours: N/A Was Clonidine taken within 24 hours: N/A Last intake: > 8hrs Social No alcohol and No tobacco Exam alert, oriented x 3, clear to auscultation bilaterally and regular rate & rhythm Airway Mallampati: Class III Dentition: false Pulmonary Chronic Obstructive Pulmonary Disease CV/HEM Stable Angina (recent normal stress tests and perfusion scans), Coronary Artery Disease (stents) and Hypertension Metabolic Diabetes Mellitus Neuropsych Cerebrovascular Accident Anesthetic Plan ASA status: 4E Anesthesia: General Risk of > 500 ml blood loss (7ml/kg in children): No Medications/Allergies Home Medications Medication Instructions Recorded Confirmed Last Taken Type alprazolam 1 mg tablet (Xanax) 1 mg PO TID PRN Anxiety 11/22/19 03/21/23 03/21/23 History amlodipine 5 mg tablet 5 mg PO BID@,11/22/19 03/21/23 03/21/23 History atorvastatin 40 mg tablet 40 mg PO DAILY@209911/22/19 03/21/23 03/21/23 History bupropion HCl 150 mg 24 hr tablet, 150 mg PO DAILY@79911/22/19 03/21/23 03/21/23 History extended release (Wellbutrin XL) carbidopa 25 mg-levodopa 100 mg 1 tab PO BID@11/22/19 03/21/23 03/21/23 History tablet citalopram 40 mg tablet 40 mg PO DAILY@79911/22/19 03/21/23 03/21/23 History clopidogrel 75 mg tablet 75 mg PO DAILY@79911/22/19 03/21/23 03/21/23 History nitroglycerin 0.4 mg sublingual 0.4 mg sublingual Q5M PRN Chest 11/22/19 03/21/23 03/21/23 History tablet (Nitrostat) Pain propranolol 80 mg capsule,24 80 mg PO DAILY@0800 11/22/19 03/21/23 03/21/23 History hr,extended release (Inderal LA) bisoprolol 10 1 tab PO DAILY@0800 07/03/20 03/21/23 03/21/23 History mg-hydrochlorothiazide 6.25 mg tablet pantoprazole 40 mg tablet,delayed See Rx Instructions .Route 06/11/21 03/21/23 03/21/23 Rx release .COMPLEX #90 tabs ferrous fumarate 325 mg (106 mg 325 mg PO DAILY 04/08/22 03/21/23 03/21/23 History iron) tablet finasteride 5 mg tablet 5 mg PO DAILY 04/08/22 03/21/23 03/21/23 History glimepiride 2 mg tablet 2 mg PO DAILY 04/08/22 03/21/23 03/21/23 History quetiapine 50 mg tablet (Seroquel) 100 mg PO DAILY 04/08/22 03/21/23 03/21/23 History sodium bicarbonate 650 mg tablet 650 mg PO BID 04/08/22 03/21/23 03/21/23 History glipizide 5 mg tablet 2.5 mg PO DAILY 05/10/22 03/21/23 03/21/23 History isosorbide mononitrate 30 mg 30 mg PO DAILY #90 tabs 08/29/22 03/21/23 03/21/23 Rx tablet,extended release 24 hr budesonide-formoterol HFA 160 1 inh inhalation BID #10.2 grams 09/12/22 03/21/23 03/21/23 Rx mcg-4.5 mcg/actuation aerosol inhaler (Symbicort) montelukast 10 mg tablet 10 mg PO DAILY #90 tabs 10/07/22 03/21/23 03/21/23 Rx (Singulair) albuterol sulfate 90 mcg/actuation 1 inh inhalation QID PRN shortness 11/14/22 03/21/23 03/21/23 Rx aerosol inhaler (Ventolin HFA) of breath or wheezing #8.5 grams Allergies Allergy/AdvReac Type Severity Reaction Status Date / Time Penicillins Allergy Unknown Unknown Verified 03/21/23 08:36 REPLACED BY [facility] Anesthesia Medical History ASHD (arteriosclerotic heart disease) BPH (benign prostatic hyperplasia) Diabetes 1.5, managed as type 2 History of stroke HTN (hypertension) Hyperlipidemia Myocardial infarct Surgical History H/O esophagogastroduodenoscopy (09/26/20) History of colonoscopy (09/26/20) History of knee replacement (~2014) History of shoulder replacement S/P knee replacement S/P PTCA (percutaneous transluminal coronary angioplasty) S/P shoulder replacement Family History Mother Dementia Denies family history of Family history of premature coronary artery disease Social History Smoking and tobacco status: former smoker Quit status (tobacco): has quit using tobacco Year quit tobacco: 1971 Former quit date comment: 2ppd x 10 years Alcohol intake: never Household members: spouse Marital status: service: No Current occupational status: retired Data Anesthesia 03/27/23 17:55 03/27/23 17:55 Cardiac Studies: Echocardiogram 04/06/21 Echocardiogram Ultrasound 07/04/20 Sestamibi Stress Test (Cardiology) 06/26/22
--- NOTE | 2023-03-27 18:19 | W.ED.ABDPA2 ---
HPI - Abdominal Pain General: Chief Complaint: Abdominal Pain Stated Complaint: COLONOSCOPY/ PERF COLON Time Seen by Provider: 03/27/23 17:43 Source: patient and EMS Mode of arrival: EMS Limitations: no limitations History of Present Illness: 77-year-old male who had had a colonoscopy today at outpatient surgery center and had a bowel perforation patient was sent here for bowel perforation. Dr. Light knows about patient's planning to take the OR patient complains of abdominal pain he rates it a 7 out of 10 denies any worsening proving factors. Associated Symptoms: Denies chills, diarrhea, dysuria, fever(s), nausea and vomiting Review of Systems Const: Denies: fever(s) or chills ENMT: Denies: throat pain or dental pain Card: Denies: chest pain Resp: Denies: dyspnea GI: Reports: abdominal pain; Denies: nausea, vomiting or diarrhea : Denies: dysuria Musc: Denies: neck pain or back pain Skin/Breast: Denies: rash Neuro: Denies: headache(s) PFSH ED PFSH: Medical History ASHD (arteriosclerotic heart disease) BPH (benign prostatic hyperplasia) Diabetes 1.5, managed as type 2 History of stroke HTN (hypertension) Hyperlipidemia Myocardial infarct Surgical History H/O esophagogastroduodenoscopy (09/26/20) History of colonoscopy (09/26/20) History of knee replacement (~2014) History of shoulder replacement S/P knee replacement S/P PTCA (percutaneous transluminal coronary angioplasty) S/P shoulder replacement Family History Mother Dementia Denies family history of Family history of premature coronary artery disease Social History Smoking and tobacco status: former smoker Quit status (tobacco): has quit using tobacco Year quit tobacco: 1971 Former quit date comment: 2ppd x 10 years Alcohol intake: never Household members: spouse Marital status: service: No Current occupational status: retired Physical Exam Const: COMMON NORMALS: patient oriented x3 GENERAL APPEARANCE: ill appearing HENMT: COMMON NORMALS: normocephalic and atraumatic HEAD & SCALP: normocephalic and atraumatic Eye: COMMON NORMALS: conjunctivae normal CONJUNCTIVA: Yes conjunctivae normal Neck/C-Spine: COMMON NORMALS: full ROM and supple Chest: COMMONS NORMALS: normal inspection of the chest and normal palpation of entire chest wall Resp: COMMON NORMALS: normal respiratory effort, No retractions, No use of accessory muscles and clear to auscultation bilaterally AUSCULTATION: clear to auscultation bilaterally Cardio: COMMON NORMALS: regular rate, regular rhythm and No murmurs present (Cardio) RATE: regular rate RHYTHM: regular rhythm GI: COMMON NORMALS: no masses OTHER: Abdomen is tense distended and tender to touch Extremity: COMMON NORMALS: normal to inspection and full ROM Neuro: COMMON NORMALS: patient oriented x3, moves all extremities and no focal motor deficits Psych: COMMON NORMALS: mental status grossly normal, Normal thought process present and cooperative THOUGHT PROCESS: Normal thought process present Skin: COMMON NORMALS: no rashes or lesions noted and no wounds GENERAL SKIN EXAM: no rashes or lesions noted Course Vital Signs: Vital signs: Vital Signs Temperature 97.9 F 03/27/23 17:36 Pulse Rate 67 03/27/23 17:36 Respiratory Rate 18 03/27/23 18:05 Blood Pressure 143/91 03/27/23 17:36 Pulse Oximetry 95 03/27/23 18:05 Oxygen Delivery Me thod Nasal Cannula 03/27/23 17:36 Oxygen Flow Rate 4 03/27/23 17:36 MDM - Abdominal Pain Medical Decision Making Patient presents here with bowel perforation patient seen by Dr. Light in the ER is taking patient to surgery at this time. Lab Data 03/27/23 17:55 03/27/23 17:55 Critical Care Time Critical Care Time: Critical Care Time: Yes Total Critical Care Time: 35 Attestation: The high probability of a clinically significant, sudden or life threatening deterioration of the patient's gi system(s) required my full and direct attention, intervention and personal management. The critical care time is as shown. This time is in addition to time spent performing any reported procedures but includes the following: [x] Data and vital sign review and interpretation [x] Patient assessment, examination and intervention [x] Documentation [x] Medication orders and management Discharge Plan Discharge Patient Disposition: Admitted As Inpatient Clinical Impression: Bowel perforation Condition: Stable Prescriptions: No Action propranolol [Inderal LA] 80 mg capsule,extended release 24 hr 80 mg PO DAILY@0800 amlodipine 5 mg tablet 5 mg PO BID@08,21 nitroglycerin [Nitrostat] 0.4 mg tablet, sublingual 0.4 mg SUBLINGUAL Q5M PRN (Reason: Chest Pain) citalopram 40 mg tablet 40 mg PO DAILY@0800 clopidogrel 75 mg tablet 75 mg PO DAILY@0800 atorvastatin 40 mg tablet 40 mg PO DAILY@2100 bupropion HCl [Wellbutrin XL] 150 mg tablet extended release 24 hr 150 mg PO DAILY@0800 carbidopa-levodopa 25-100 mg tablet 1 tab PO BID@, alprazolam [Xanax] 1 mg tablet 1 mg PO TID PRN (Reason: Anxiety) quetiapine [Seroquel] 50 mg tablet 100 mg PO DAILY glipizide 5 mg tablet 2.5 mg PO DAILY isosorbide mononitrate 30 mg tablet extended release 24 hr 30 mg PO DAILY Qty: 90 3RF ferrous fumarate 325 mg (106 mg iron) tablet 325 mg PO DAILY finasteride 5 mg tablet 5 mg PO DAILY glimepiride 2 mg tablet 2 mg PO DAILY sodium bicarbonate 650 mg tablet 650 mg PO BID pantoprazole 40 mg tablet,delayed release (DR/EC) See Rx Instructions .ROUTE .COMPLEX Qty: 90 0RF Dose Instruction: TAKE 1 TABLET BY MOUTH EVERY DAY Rx Instructions: TAKE 1 TABLET BY MOUTH EVERY DAY budesonide-formoterol [Symbicort] 160-4.5 mcg/actuation HFA aerosol inhaler 1 inh inhalation BID Qty: 10.2 0RF montelukast [Singulair] 10 mg tablet 10 mg PO DAILY Qty: 90 1RF albuterol sulfate [Ventolin HFA] 90 mcg/actuation HFA aerosol inhaler 1 inh inhalation QID PRN (Reason: shortness of breath or wheezing) Qty: 8.5 3RF bisoprolol-hydrochlorothiazide 10-6.25 mg Tablet 1 tab PO DAILY@0800 Referrals: Ramiro Villavicencio MD [Primary Care Provider] - Coding Level of Care Code ED Product Ambassador for g Vickie
--- NOTE | 2023-03-27 18:23 | PM.HP ---
Providers/Chief Complaint Primary Care Provider: Ramiro Villavicencio MD Chief Complaint: COLONOSCOPY/ PERF COLON History of Present Illness Jhon Marcos is a 77 year old male who presents to the hospital from an outside facility with a perforated sigmoid colon diverticulum that occurred during a colonoscopy. He reports constant and diffuse abdominal pain. Palpation makes pain worse. Nothing makes pain better. He denies any other symptoms. He was undergoing colonoscopy to evaluate for severe anemia. He recently had a hemoglobin in the fives and received a transfusion of PRBCs, reportedly. Review of Systems General: Reports: 10 or more systems reviewed and unremarkable except in HPI and below Medications/Allergies Home Medications Medication Instructions Recorded Confirmed Last Taken Type alprazolam 1 mg tablet (Xanax) 1 mg PO TID PRN Anxiety 11/22/19 03/21/23 03/21/23 History amlodipine 5 mg tablet 5 mg PO BID@11/22/19 03/21/23 03/21/23 History atorvastatin 40 mg tablet 40 mg PO DAILY@209911/22/19 03/21/23 03/21/23 History bupropion HCl 150 mg 24 hr tablet, 150 mg PO DAILY@79911/22/19 03/21/23 03/21/23 History extended release (Wellbutrin XL) carbidopa 25 mg-levodopa 100 mg 1 tab PO BID@11/22/19 03/21/23 03/21/23 History tablet citalopram 40 mg tablet 40 mg PO DAILY@79911/22/19 03/21/23 03/21/23 History clopidogrel 75 mg tablet 75 mg PO DAILY@79911/22/19 03/21/23 03/21/23 History nitroglycerin 0.4 mg sublingual 0.4 mg sublingual Q5M PRN Chest 11/22/19 03/21/23 03/21/23 History tablet (Nitrostat) Pain propranolol 80 mg capsule,24 80 mg PO DAILY@79911/22/19 03/21/23 03/21/23 History hr,extended release (Inderal LA) bisoprolol 10 1 tab PO DAILY@0800 07/03/20 03/21/23 03/21/23 History mg-hydrochlorothiazide 6.25 mg tablet pantoprazole 40 mg tablet,delayed See Rx Instructions .Route 06/11/21 03/21/2323 Rx release .COMPLEX #90 tabs ferrous fumarate 325 mg (106 mg 325 mg PO DAILY 04/08/22 03/21/23 03/21/23 History iron) tablet finasteride 5 mg tablet 5 mg PO DAILY 04/08/22 03/21/23 03/21/23 History glimepiride 2 mg tablet 2 mg PO DAILY 04/08/22 03/21/23 03/21/23 History quetiapine 50 mg tablet (Seroquel) 100 mg PO DAILY 04/08/22 03/21/23 03/21/23 History sodium bicarbonate 650 mg tablet 650 mg PO BID 04/08/22 03/21/23 03/21/23 History glipizide 5 mg tablet 2.5 mg PO DAILY 05/10/22 03/21/23 03/21/23 History isosorbide mononitrate 30 mg 30 mg PO DAILY #90 tabs 08/29/22 03/21/23 03/21/23 Rx tablet,extended release 24 hr budesonide-formoterol HFA 160 1 inh inhalation BID #10.2 grams 09/12/22 03/21/23 03/21/23 Rx mcg-4.5 mcg/actuation aerosol inhaler (Symbicort) montelukast 10 mg tablet 10 mg PO DAILY #90 tabs 10/07/22 03/21/23 03/21/23 Rx (Singulair) albuterol sulfate 90 mcg/actuation 1 inh inhalation QID PRN shortness 11/14/22 03/21/23 03/21/23 Rx aerosol inhaler (Ventolin HFA) of breath or wheezing #8.5 grams Allergies Allergy/AdvReac Type Severity Reaction Status Date / Time Penicillins Allergy Unknown Unknown Verified 03/21/23 08:36 PFSH Acute PFSH: Medical History ASHD (arteriosclerotic heart disease) BPH (benign prostatic hyperplasia) Diabetes 1.5, managed as type 2 History of stroke HTN (hypertension) Hyperlipidemia Myocardial infarct Surgical History H/O esophagogastroduodenoscopy (09/26/20) History of colonoscopy (03/02/21) History of knee replacement (~2014) History of shoulder replacement S/P knee replacement S/P PTCA (percutaneous transluminal coronary angioplasty) S/P shoulder replacement Family History Mother Dementia Denies family history of Family history of premature coronary artery disease Social History Smoking and tobacco status: former smoker Quit status (tobacco): has quit using tobacco Year quit tobacco: 1971 Former quit date comment: 2ppd x 10 years Alcohol intake: never Household members: spouse Marital status: service: No Current occupational status: retired Vitals/I&O/Wt Last Vital Signs Temp 97.9 F 03/27/23 17:36 Pulse 67 03/27/23 17:36 Resp 18 03/27/23 18:05 BP 143/91 03/27/23 17:36 Pulse Ox 95 03/27/23 18:05 O2 Del Method Nasal Cannula 03/27/23 17:36 O2 Flow Rate 4 03/27/23 17:36 Weight last 48 hrs Weight 226 lb Physical Exam Narrative: General : Patient is well developed , no acute distress, oriented x3 Head : Normal cephalic, a-traumatic. Ears : Pinnae and external canal are normal. Hearing is normal. Eyes : PERRLA, Sclera and injection are normal. No conjunctival discharge. Nose : Mucous membranes are without erythema. Throat : buccal mucosa is normal, gums are without significant recession or hypertrophy. Lungs : Equal chest rise bilaterally, no use of accessory muscles, trachea is midline. Cor : Rate and rhythm are normal. Abdomen : Soft, distended, diffusely tender, no guarding or rebound Extremities : No edema, no cyanosis or clubbing, dorsalis pedis pulses are present bilaterally, non-tender to palpation of calves. Upper extremities are normal bilaterally. Back : non-tender to palpation, no CVA tenderness. Neuro : CN II - XII intact, Upper and lower extremities have equal and full strength Data 03/27/23 17:55 03/27/23 17:55 A&P Assessment and plan (1) Bowel perforation: Plan Exploratory laparotomy The risks and benefits of the procedure, including but limited to, scar, numbness, bleeding, infection, damage to surrounding structures, possible need for colostomy, possible bowel resection, possible need for further surgery, anastomotic leak, were explained to the patient. He is understanding of the risks and wishes to proceed.. Attestations Medical Necessity Statement*: Patient requires multiple nights in the hospital recovery after colonic perforation and exploratory laparotomy for repair Coding Level of Care Code Acute Code for [facility] Fwd Diagnoses Bowel perforation K63.1
[2023-03-27 18:47] LABS: Eosinophils # 0.1 10^3/uL (0.0-0.8); Eosinophils % 2.2 %; Hematocrit 27.7 % (37-53); Lymphocytes # 1.3 10^3/uL (0.8-4.8); Lymphocytes % 23.1 %; Mean Corpuscular HGB Conc 32.1 g/dL (30-55); Mean Corpuscular Hemoglobin 30.2 pg (27-33); Mean Corpuscular Volume 93.9 fl (82-101); Mean Platelet Volume 9.1 fL (7.4-10.4); Monocytes # 0.4 10^3/uL (0.2-0.9); Monocytes % 7.3 %; Neutrophils # 3.86 10^3/uL (1.8-7.7); Neutrophils % 66.7 %; Nucleated Red Blood Cells % 0 %; Platelet Count 349 10^3/cmm (157-399); Red Blood Count 2.95 10^6/uL (3.85-5.65); Red Cell Distribution Width 13.6 % (12.1-15.1); White Blood Count 5.79 10^3/uL (3.29-11.43)
[2023-03-27 18:53] LABS: Alanine Aminotransferase < 5 U/L (0-41); Alkaline Phosphatase 145 U/L (40-130); Anion Gap 16.1 (5-19); Aspartate Amino Transferase 7 U/L (0-40); Blood Urea Nitrogen 20 mg/dL (8-23); Calcium 8.9 mg/dL (8.5-10.5); Carbon Dioxide 19 mmol/L (22-29); Chloride 103 mmol/L (98-107); Globulin 2.8 g/dL (1.3-4.6); Glucose 150 mg/dL (65-115); Osmolality Calculated 283 mOsm/kg (285-295); Potassium 4.1 mmol/L (3.5-5.1); Sodium 134 mmol/L (136-145); Total Bilirubin 0.6 mg/dL (0.15-1.2); Total Protein 6.8 g/dL (6.6-8.7)
--- NOTE | 2023-03-27 19:32 | SUR.OPER ---
NG tube placed by Nathanael Abernathy CRNA. Placement verified by Dr. Light while performing exploratory laparotomy.
--- NOTE | 2023-03-27 20:16 | P.OP_ITS ---
Operative Report Date of procedure: March 27, 2023 Pre-op diagnosis: Sigmoid colon perforation during colonoscopy Post-op diagnosis: same Procedure done: Exploratory laparotomy with primary repair of colotomy Implants: 19 [employer] drain Specimens removed/disposition: None Surgeon: Eric Light DO Anesthesia: General Estimated blood loss (mL): 5 Complications: None apparent Brief History: This very pleasant 77-year-old gentleman who was undergoing a colonoscopy today as part of a work-up for anemia. His sigmoid colon was inadvertently perforated and he was transferred to the emergency room. Exploratory laparotomy was indicated. The risk and benefits were explained and documented. Procedure: Patient was wheeled in operative room placed on the OR table in supine position. General endotracheal intubation was achieved by department anesthesia. Time was performed. All present were in agreement. The abdomen inspected prepped and draped in usual sterile fashion. A 10 blade scalpel was used to make a midline laparotomy incision from just above the umbilicus to the pubic symphysis. Electrocautery was used dissect down through the fascia. Immediately and easily a 1.5 cm perforation of the sigmoid colon was identified. There was food particulates in the abdomen and significant fluid. I primarily closed the colotomy with 4-0 Vicryl in a simple 2 layered fashion. The NG tube was confirmed to be in in proper location. A 19 [place] Omar drain was placed into the right lower quadrant covering the sigmoid colon and going down to the pelvis. The drain was sewn into place with 3-0 silk. The abdomen was copiously irrigated with normal saline until clear. The midline laparotomy incision was then closed with looped PDS in a running fashion x2. Skin was closed with celina. Sterile bandages were applied. Patient tolerated procedure well.
[2023-03-27] MEDS: pantoprazole 40 mg SDV IVP (20:50)
[2023-03-27] MEDS: sodium chloride 0.9% 1,000 ML 125 ML IV (20:50)
[2023-03-27] MEDS: HYDROmorphone 1 mg/mL INJ 1 mL IVP (21:18)
[2023-03-27] MEDS: heparin 5,000 unit/mL INJ 1 mL 5000 UNIT SUBCUT (21:19)
--- NOTE | 2023-03-27 21:30 | ANE.PACU2 ---
Inpatient post-anesthesia follow up: Airway intact: Yes Vital signs: Temperature 97.4 F Pulse Rate 99 Respiratory Rate 15 Blood Pressure 102/68 Pulse Oximetry 96 Oxygen Delivery Me thod Nasal Cannula Oxygen Flow Rate 2 Fraction of Inspir ed Oxygen Hydration adequate: Yes Nausea and vomiting: No Pain level: 3 Mental status: Baseline
[2023-03-27 21:32] LABS: Protein Urine 1+ (Negative); Specific Gravity, Urine 1.015 (1.005-1.030); Urine Appearance Clear (CLEAR); Urine Color Yellow (Yellow); pH Urine 6 (5-7)
[2023-03-27 21:33] LABS: Add Urine Culture? No; Add Urine Microscopic? YES; Bacteria Urine TRACE /hpf; Bilirubin Urine Neg (Negative); Blood Urine Neg (Negative); Glucose Urine UA Norm (Normal); Ketones Urine Negative (Negative); Leukocyte Esterase Urine Negative (Negative); Nitrate Urine Negative (Negative); RBC Urine 0-4 /hpf (0-2); Squamous Epithelial Cell Urine 0-4 /hpf (0-5); Urobilinogen Urine Neg (Negative); WBC Urine 0-4 /hpf (0-5)
[2023-03-28] VITALS (91 sets, daily range): BP systolic 76–123; BP diastolic 45–84; PULSE 89–118; RESP 15–29; TEMP 36.2–36.8; O2SAT 90–99
[2023-03-28] MEDS: HYDROmorphone 1 mg/mL INJ 1 mL IVP ×8 (00:36→23:05)
[2023-03-28] MEDS: sodium chloride 0.9% 1,000 ML 125 ML IV ×2 (03:29→16:14)
[2023-03-28] MEDS: heparin 5,000 unit/mL INJ 1 mL 5000 UNIT SUBCUT ×3 (03:29→20:19)
--- NOTE | 2023-03-28 03:57 | P.CONIM_ITS ---
Providers/Reason For Consult Consulting Physician/Specialty*: Hospitalist Reason for Consult*: Medical management Requesting Physician: Dr. Light Attending Physician: Eric Light DO Primary Care Provider: Ramiro Villavicencio MD History of Present Illness History of Present Illness Jhon Marcos is a 77 year old male with past medical history of myocardial infarction diabetes mellitus status post stroke hypertension hyperlipidemia and BPH presents after complication with colonoscopy resulting in perforation of colon. Patient was taken urgently to the OR for exploratory lap by Dr. Light. The perforation was oversewn and patient had washout. He has a midline incision with a FEREM in place. Patient was sleeping and did not want to awaken in the middle of the night. Information was taken from chart and bedside nurse. Review of Systems General: Reports: ROS unobtainable due to mental status (sleeping after emergency surgery.) Medications/Allergies Home Medications Medication Instructions Recorded Confirmed Last Taken Type alprazolam 1 mg tablet (Xanax) 1 mg PO TID PRN Anxiety 11/22/19 03/21/23 03/21/23 History amlodipine 5 mg tablet 5 mg PO BID@11/22/19 03/21/23 03/21/23 History atorvastatin 40 mg tablet 40 mg PO DAILY@2100 11/22/19 03/21/23 03/21/23 History bupropion HCl 150 mg 24 hr tablet, 150 mg PO DAILY@79911/22/19 03/21/23 03/21/23 History extended release (Wellbutrin XL) carbidopa 25 mg-levodopa 100 mg 1 tab PO BID@11/22/19 03/21/23 03/21/23 History tablet citalopram 40 mg tablet 40 mg PO DAILY@79911/22/19 03/21/23 03/21/23 History clopidogrel 75 mg tablet 75 mg PO DAILY@79911/22/19 03/21/23 03/21/23 History nitroglycerin 0.4 mg sublingual 0.4 mg sublingual Q5M PRN Chest 11/22/1903/2103/21/23 History tablet (Nitrostat) Pain propranolol 80 mg capsule,24 80 mg PO DAILY@79911/22/19 03/21/23 03/21/23 History hr,extended release (Inderal LA) bisoprolol 10 1 tab PO DAILY@0800 07/03/20 03/21/23 03/21/23 History mg-hydrochlorothiazide 6.25 mg tablet pantoprazole 40 mg tablet,delayed See Rx Instructions .Route 06/11/21 03/21/23 03/21/23 Rx release .COMPLEX #90 tabs ferrous fumarate 325 mg (106 mg 325 mg PO DAILY 04/08/22 03/21/23 03/21/23 His tory iron) tablet finasteride 5 mg tablet 5 mg PO DAILY 04/08/22 03/21/23 03/21/23 History glimepiride 2 mg tablet 2 mg PO DAILY 04/08/22 03/21/23 03/21/23 History quetiapine 50 mg tablet (Seroquel) 100 mg PO DAILY 04/08/22 03/21/23 03/21/23 History sodium bicarbonate 650 mg tablet 650 mg PO BID 04/08/22 03/21/23 03/21/23 History glipizide 5 mg tablet 2.5 mg PO DAILY 05/10/22 03/21/23 03/21/23 History isosorbide mononitrate 30 mg 30 mg PO DAILY #90 tabs 08/29/22 03/21/23 03/21/23 Rx tablet,extended release 24 hr budesonide-formoterol HFA 160 1 inh inhalation BID #10.2 grams 09/12/22 03/21/23 03/21/23 Rx mcg-4.5 mcg/actuation aerosol inhaler (Symbicort) montelukast 10 mg tablet 10 mg PO DAILY #90 tabs 10/07/22 03/21/23 03/21/23 Rx (Singulair) albuterol sulfate 90 mcg/actuation 1 inh inhalation QID PRN shortness 11/14/22 03/21/23 03/21/23 Rx aerosol inhaler (Ventolin HFA) of breath or wheezing #8.5 grams Allergies Allergy/AdvReac Type Severity Reaction Status Date / Time Penicillins Allergy Unknown Unknown Verified 03/21/23 08:36 Current Medications Generic Name Dose Route Start Last Admin Trade Name Freq PRN Reason Stop Dose Admin Heparin Sodium (Porcine) 5,000 unit 03/27/23 20:30 03/28/23 03:29 Heparin 5,000 Unit/Ml Inj 1 Ml SUBCUT 5,000 unit Q8H JOSEPHINE Administration Hydromorphone HCl 1 mg 03/27/23 20:20 03/28/23 03:29 Hydromorphone 1 Mg/Ml Inj 1 Ml IVP 1 mg Q2H PRN Administration PAIN Sodium Chloride 1,000 mls @ 125 mls/hr 03/27/23 20:30 03/28/23 03:29 Sodium Chloride 0.9% IV 125 mls/hr .Q8H JOSEPHINE Administration Ondansetron HCl 4 mg 03/27/23 20:20 03/27/23 21:19 Ondansetron 2 Mg/Ml Sdv 2 Ml IVP 4 mg Q4H PRN Administration vomiting, or N/V if npo Pantoprazole Sodium 40 mg 03/27/23 20:30 03/27/23 20:50 Pantoprazole 40 Mg Sdv IVP 40 mg Q24H JOSEPHINE Administration PFSH Acute PFSH: Medical History ASHD (arteriosclerotic heart disease) BPH (benign prostatic hyperplasia) Diabetes 1.5, managed as type 2 History of stroke HTN (hypertension) Hyperlipidemia Myocardial infarct Surgical History H/O esophagogastroduodenoscopy (09/26/20) History of colonoscopy (09/26/20) History of knee replacement (~2014) History of shoulder replacement S/P knee replacement S/P PTCA (percutaneous transluminal coronary angioplasty) S/P shoulder replacement Family History Mother Dementia Denies family history of Family history of premature coronary artery disease Social History Smoking and tobacco status: former smoker Quit status (tobacco): has quit using tobacco Year quit tobacco: 1971 Former quit date comment: 2ppd x 10 years Alcohol intake: never Household members: spouse Marital status: service: No Current occupational status: retired Vitals/I&O/Wt Last Vital Signs Temp 97.4 F L 03/28/23 03:23 Pulse 99 03/28/23 03:15 Resp 15 03/28/23 03:29 BP 116/56 09/01/23 03:15 Pulse Ox 96 03/28/23 03:15 O2 Del Method Nasal Cannula 03/28/23 03:23 O2 Flow Rate 2 03/28/23 03:23 03/27/23 03/27/23 03/28/23 14:59 22:59 06:59 Intake Total 2250 / 2250 831.25 / 3081.25 Output Total 605 / 605 430 / 1035 Balance 1645 / 1645 401.25 / 2046.25 Weight last 48 hrs Weight 102.512 kg Physical Exam Narrative: Patient seen resting in bed patient has been experiencing mild distress for which she is receiving pain medication periodically. Neurologic nonfocal. HEENT head is normocephalic pupils are equal and reactive to light and accommodation mucous membranes are moist and pink neck is supple no JVD carotid bruits or lymphadenopathy. Heart regular normal S1-S2 without murmurs clicks gallops or rubs lungs clear to auscultation anteriorly abdomen midline incision clean dry and intact sluggish bowel sounds extremities no clubbing cyanosis or edema Urinary Catheter Management: Conteh: Cath Placed During This Visit: yes Urinary Catheter Date of Insertion: 03/27/23 Urinary Catheter Time of Insertion: 19:10 Data 03/27/23 17:55 03/27/23 17:55 Micro: Microbiology 03/27/23 18:03 Blood Culture - Preliminary Blood SPECIMEN COLLECTED 03/27/23 17:55 Blood Culture - Preliminary Blood SPECIMEN COLLECTED A&P Assessment and plan (1) Bowel perforation: Status postrepair. (2) ASHD (arteriosclerotic heart disease): Continue home medications when taking p.o. (3) Diabetes 1.5, managed as type 2: On oral medications will resume once diet resumes. (4) HTN (hypertension): Continue home medications of amlodipine and propranolol when taking p.o. (5) Hyperlipidemia: Continue home medication of atorvastatin when taking p.o. Consult Attestations Medical Necessity Statement: Anticipate greater than 2 midnight stay due to emergent surgery and recovery necessary. Coding Level of Care Code Acute Code for [facility] Fwd Diagnoses Bowel perforation K63.1 ASHD (arteriosclerotic heart disease) I25.10 Diabetes 1.5, managed as type 2 E13.9 HTN (hypertension) I10 Hyperlipidemia E78.5
[2023-03-28 04:47] LABS: Basophils % 0.4 %; Hematocrit 31.7 % (37-53); Lymphocytes # 0.4 10^3/uL (0.8-4.8); Lymphocytes % 13.3 %; Mean Corpuscular HGB Conc 29.7 g/dL (30-55); Mean Corpuscular Hemoglobin 29.5 pg (27-33); Mean Corpuscular Volume 99.4 fl (82-101); Mean Platelet Volume 9.3 fL (7.4-10.4); Monocytes # 0.2 10^3/uL (0.2-0.9); Monocytes % 8.1 %; Neutrophils % 77.8 %; Nucleated Red Blood Cells % 0 %; Platelet Count 289 10^3/cmm (157-399); Red Blood Count 3.19 10^6/uL (3.85-5.65); Red Cell Distribution Width 13.3 % (12.1-15.1)
[2023-03-28 05:07] LABS: Blood Urea Nitrogen 22 mg/dL (8-23); Calcium 7.9 mg/dL (8.5-10.5); Carbon Dioxide 18 mmol/L (22-29); Chloride 112 mmol/L (98-107); Glucose 94 mg/dL (65-115); Magnesium 1.5 mg/dL (1.7-2.3); Osmolality Calculated 291 mOsm/kg (285-295); Phosphorus 3.6 mg/dL (2.5-4.5); Sodium 139 mmol/L (136-145)
[2023-03-28 05:22] LABS: Slide Review Slide Review Perform
--- NOTE | 2023-03-28 07:54 | PC.NURSE ---
Incision and drain: No drainage noted on dressing. Dressing remains intact. Hitesh drained, 65ml, Bulb compressed.
--- NOTE | 2023-03-28 08:47 | PC.NURSE ---
Cardiac monitoring: NO strip to place in chart. Printer malfunctioning at this time.
[2023-03-28 09:38] LABS: ABG PCO2 35.6 mmHg (35-45); ABG PH Result 7.23 (7.35-7.45); Arterial Blood Gas Hematocrit 29.9 % (42-52); Base Excess ABG -11.7 mmol/L (-2.0-2.0); Blood Gas Allen Test Pos; Blood Gas Sample Type Arterial; HCO3 ABG 14.9 mmol/L (22-26); PO2 ABG 74.1 mmHg (80.0-100.0)
[2023-03-28 09:39] LABS: Blood Gas Operator Identificat MONRO; Blood Gas Sample Site Brachial, right; Oxygen Device NC
[2023-03-28] MEDS: magnesium sulfate premix 2 GM/50 ML PIGGYBACK IV (09:45)
[2023-03-28] MEDS: metroNIDAZOLE IV 500 MG/100 ML PREMIX 100 MG IV ×2 (09:45→16:16)
--- NOTE | 2023-03-28 09:59 | PM.PN ---
Subjective Subjective: Patient seen and examined. He is quite confused but not having any abdominal pain. Vitals/I&O/Wt Last Vital Signs Temp 99.1 F 03/29/23 08:30 Pulse 105 H 03/29/23 08:30 Resp 24 H 03/29/23 08:30 BP 103/83 03/29/23 08:30 Pulse Ox 92 03/29/23 08:30 O2 Del Method Nasal Cannula 03/29/23 08:30 O2 Flow Rate 2 03/29/23 08:30 FiO2 2 03/29/23 07:48 03/28/23 03/29/23 03/29/23 22:59 06:59 14:59 Intake Total 1136.524 / 2299.857 193.599 / 2493.456 100 / 100 Output Total 175 / 270 225 / 495 50 / 50 Balance 961.524 / 2029.857 -31.401 / 1998.456 50 / 50 Weight last 48 hrs Weight 226 lb Physical Exam Narrative: General: No acute distress Abdomen: Soft, nondistended, appropriately tender to palpation Drain serosanguineous Dressings clean dry and intact Urinary Catheter Management: Conteh: Cath Placed During This Visit: yes Reason for Continuing Indwelling Catheter: Accurate Measurement of Urinary Output in Critically Ill Patients Urinary Catheter Date of Insertion: 03/27/23 Urinary Catheter Time of Insertion: 19:10 Data 03/29/23 04:19 03/29/23 04:49 Micro: Microbiology 03/27/23 18:03 Blood Culture - Preliminary Blood Escherichia coli 03/27/23 17:55 Blood Culture - Final Blood A&P Assessment and plan (1) Bowel perforation: Plan Status post exploratory laparotomy with primary repair of colotomy which occurred during a colonoscopy at an outside facility Antibiotics ICU management-appreciate hospitalist input Await return of bowel function Attestations Medical Necessity Statement*: Patient requires multiple more nights in the hospital for intensive care and recovery after bowel perforation Coding Level of Care Code Acute Code for Chg Fwd Diagnoses Bowel perforation K63.1
[2023-03-28 10:04] LABS: Lactic Sepsis W/Reflex 2.7 mmol/L (0.5-2.2)
[2023-03-28 10:06] LABS: Estmated Average Glucose 105; Hemoglobin A1C 5.3 % (4.0-6.0)
[2023-03-28 10:07] LABS: NT Pro B Type Natriuretic Pept 451 pg/mL (0-450); Procalcitonin 26.81 ng/mL (0-0.5)
[2023-03-28 10:11] LABS: C Reactive Protein 21.5 mg/L (0.0-4.9); Chol HDL Ratio 3.64 mg/dL (1.0-5.00); Cholesterol 91 mg/dL (0-200); HDL Cholesterol 25 mg/dL (60-100); LDL Cholesterol Calculated 34 mg/dL (50-129); LDL HDL Ratio 1.36 RATIO (0.00-3.22); Thyroid Stimulating Hormone 4.41 uIU/mL (0.27-4.20); Triglycerides 159 mg/dL (0-150)
[2023-03-28] MEDS: ciprofloxacin 400 MG/200 ML PREMIX 200 MG IV (10:59)
[2023-03-28 11:24] LABS: Reflex Lactate Order REFLEX LACTIC ORDERD
--- NOTE | 2023-03-28 12:09 | USCV_ITS ---
Jhon Marcos Age: 77 Gender: M : 1945 Exam Date: 03/28/2023 12:44 Ordering Phys: Felix Hernandez MD Technologist: Frederic Chance Exam Location: [facility] – [place] Indication: chest pain BP: / HR: 98 Rhythm: Sinus Technical Quality: Adequate MEASUREMENTS (Male / Female) Normal Values 2D ECHO LV Diastolic Diameter PLAX 4.4 cm 4.2 - 5.9 / 3.9 - 5.3 cm LV Systolic Diameter PLAX 2.3 cm IVS Diastolic Thickness 1.3 cm 0.6 - 1.0 / 0.6 - 0.9 cm IVS Systolic Thickness 1.8 cm LVPW Diastolic Thickness 1.2 cm 0.6 - 1.0 / 0.6 - 0.9 cm LVPW Systolic Thickness 1.8 cm LVOT Diameter 2.0 cm LV Ejection Fraction 2D Teich 79.5 % LV Ejection Fraction MOD 2C 46.2 % LV Ejection Fraction 2C AL 47.3 % LA Diameter 4.2 cm LA Width 6.4 cm M-MODE Aortic Annulus Diameter 3.6 cm LA Ao Ratio MM 1.1 MV E Point Septal Separation 1.0 cm DOPPLER AV Peak Velocity 89.0 cm/s LVOT Peak Velocity 55.0 cm/s AV Area Cont Eq vti 1.9 cm squared AV Area Cont Eq pk 2.0 cm squared MV Area PHT 5.0 cm squared MV E' Velocity 73.0 cm/s TR Peak Velocity 135.0 cm/s TR Peak Gradient 7.3 mmHg Right Atrial Pressure 3.0 mmHg Pulmonary Artery Systolic Pressu 10.3 mmHg RV Acceleration Time 0.1 s FINDINGS Left Ventricle Left ventricle is normal size. LV systolic function is mildly reduced with EF of 40-45 %. Mild global hypokinesis seen. Right Ventricle Normal in size and function Right Atrium Normal in size Left Atrium Normal in size Mitral Valve Structurally normal mitral valve. Aortic Valve Structurally normal aortic valve. No significant stenosis or regurgitation seen. Tricuspid Valve Mild tricuspid regurgitation. Insufficient TR jet to calculate RVSP. Pulmonic Valve Not well-visualized Pericardium Normal Aorta Normal in size IVC Appears to be normal CONCLUSIONS LV systolic function is mildly reduced with EF of 40 to 45%. Mild global hypokinesis seen. Grossly normal valvular structures. Mild tricuspid regurgitation Compared to prior echocardiogram from 2020, LV systolic function has decreased and is mildly reduced now. Pieter Gomez MD (Electronically Signed) Final Date: 28 March 2023 16:37 S
--- NOTE | 2023-03-28 12:09 | ECG_ITS ---
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 Measurements Intervals [employer] Rate: 99 P: 33 NH: 193 QRS: -26 QRSD: 96 T: -14 QT: 339 QTc: 436 Interpretive Statements SINUS RHYTHM LOW QRS VOLTAGE IN PRECORDIAL LEADS [QRS DEFLECTION < 1.0 mV IN CHEST LEADS] INFERIOR MYOCARDIAL INFARCTION , PROBABLY OLD [40+ ms Q WAVE AND/OR ST/T ABNORMALITY IN II/aVF] ANTEROSEPTAL MYOCARDIAL INFARCTION , OF INDETERMINATE AGE [40+ ms Q WAVE IN V1-V4] Compared to ECG 03/27/2023 17:51:14 No significant changes Electronically Signed On 03-28-2023 13:31:32 CDT by Gabriela Church M.D. [id number]
--- NOTE | 2023-03-28 12:11 | XR_ITS ---
WS: [id number] Exam: XR KUB portable [id number] Date/Time of Exam: 03/28/2023 12:11 PM Reason For Exam: abdominal distention No bowel obstruction or free air noted. There is scattered gas in the stomach as well as large and sm all bowel loops. The appearance suggests mild ileus. Surgical clips seen along the LEFT lower abdomen and pelvis. Organ margins are obscured. Visualized bony elements are intact. An NG tube is noted end ing in the body of the stomach. IMPRESSION: 1. Probable mild ileus. No sign of acute bowel obstruction or pneumoperitoneum. 2. NG tube noted in the body the stomach.
--- NOTE | 2023-03-28 12:11 | XR_ITS ---
WS: [id number] Exam: XR chest 1V portable [id number] Date/Time of Exam: 03/28/2023 12:11 PM Reason For Exam: hypoxia Comparison 07/03/2020. Low lung volumes noted due to limited inspiration. No consolidating infiltrates . An NG tube ends in the stomach. The heart is enlarged. No pneumothorax noted. No pleural effusion. Partially visualized RIGHT shoulder prosthesis. IMPRESSION: 1. Cardiac enlargement. 2. Low lung volumes due to limited inspiration. No acute process identified otherwise. 3. NG tube in place extending into the body the stomach.
[2023-03-28 12:24] LABS: Glucose Point of Care 92 mg/dL (70-110)
[2023-03-28 12:29] LABS: Hematocrit 30.5 % (37-53); Mean Corpuscular HGB Conc 30.5 g/dL (30-55); Mean Corpuscular Volume 98.4 fl (82-101); Mean Platelet Volume 9.4 fL (7.4-10.4); Platelet Count 259 10^3/cmm (157-399); Red Cell Distribution Width 13.6 % (12.1-15.1); White Blood Count 6.61 10^3/uL (3.29-11.43)
[2023-03-28] MEDS: sodium chloride 0.9% 500 ML 700 ML IV (12:37)
[2023-03-28 12:48] LABS: Lactic Acid level (Lactate) 2.9 mmol/L (0.5-2.2)
[2023-03-28 12:53] LABS: Troponin(5th) Baseline 38 ng/L (0-15)
[2023-03-28 12:58] LABS: Alanine Aminotransferase < 5 U/L (0-41); Albumin Level 3.5 g/dL (3.5-5.2); Alkaline Phosphatase 86 U/L (40-130); Anion Gap 18.5 (5-19); Aspartate Amino Transferase 7 U/L (0-40); Blood Urea Nitrogen 26 mg/dL (8-23); Calcium 8.2 mg/dL (8.5-10.5); Carbon Dioxide 16 mmol/L (22-29); Chloride 110 mmol/L (98-107); Globulin 1.7 g/dL (1.3-4.6); Glucose 85 mg/dL (65-115); Magnesium 1.7 mg/dL (1.7-2.3); NT Pro B Type Natriuretic Pept 1387 pg/mL (0-450); Osmolality Calculated 294 mOsm/kg (285-295); Phosphorus 4.9 mg/dL (2.5-4.5); Potassium 4.5 mmol/L (3.5-5.1); Sodium 140 mmol/L (136-145); Total Bilirubin 0.5 mg/dL (0.15-1.2); Total Protein 5.2 g/dL (6.6-8.7)
[2023-03-28] MEDS: perflutren protein-a microsphr 0.22 mg/mL SDV 3 mL IV (13:10)
[2023-03-28 13:50] LABS: Slide Review Slide Review Perform
[2023-03-28 13:51] LABS: Absolute Segmented Neutrophil 2.4 10/cmm (1.6-7.1); Band Neutrophils Absolute 1.7 10^3/cmm (0.0-1.2); Eosinophils 0 %; Lymphocytes 21 %; Lymphocytes Absolute 1.4 10^3/cmm (1.2-3.4); Monocytes Absolute 0.1 10^3/cmm (0.1-0.6); Platelet Estimate Normal (Normal); Segmented Neutrophils 36 %; Total Cells Counted 100 (0-100)
--- NOTE | 2023-03-28 14:00 | PC.NURSE ---
Cardiac monitoring: Printer malfunctioning, unable to print strip.
--- NOTE | 2023-03-28 14:26 | P.PN_ITS ---
Subjective Subjective: - Patient was examined multiple times throughout the morning -Early in the morning was examined he is alert to person, to place, not to time, he is quite drowsy, has no pain complaints, maps around 65, afebrile, not on pressors, on 3 L, he does have a history of CHRISTY on BiPAP, was offered BiPAP th roughout the night -ABG does not show significant hypercarbia but does show metabolic acidosis -Blood work shows metabolic acidosis, elevated lactic acid, MAP around 65, elevated creatinine at 4.3 -Discussed with and patient in detail, currently patient is encephalopathic I think likely secondary to sepsis, and gram-negative bacteremia -We will treat with IV antibiotics, follow repeat blood cultures -According to he has history of CKD stage IV, and there is been discussions about possible dialysis -Patient has had a history of stroke, he had a TIA roughly 2 months ago -Also has been complaining of chest pain recently, he has had 7 stents placed, last stent was laced more than 10 years ago he has not followed up with a physician for his chest pain -Reexamined throughout the afternoon, his maps are hovering around 65, has good urine output, given elevated lactic acid, is developing septic shock, acute renal failure, with gram-negative bacteremia -Bolused 500 cc, will place PICC line, concerns for developing septic shock placed on Levophed we will try to avoid due to risk of cardiac ischemia, bolus fluids as needed Vitals/I&O/Wt Last Vital Signs Temp 98.2 F 03/28/23 07:15 Pulse 96 03/28/23 14:00 Resp 22 H 03/28/23 13:02 BP 93/65 03/28/23 12:45 Pulse Ox 96 03/28/23 13:02 O2 Del Method Nasal Cannula 03/28/23 13:02 O2 Flow Rate 2 03/28/23 13:02 03/27/23 03/28/23 03/28/23 22:59 06:59 14:59 Intake Total 2250 / 2250 831.25 / 3081.25 663.333 / 663.333 Output Total 605 / 605 430 / 1035 65 / 65 Balance 1645 / 1645 401.25 / 2046.25 598.333 / 598.333 Weight last 48 hrs Weight 102.512 kg Physical Exam Const: COMMON NORMALS: no acute distress ORIENTATION/CONSCIOUSNESS: Yes awake, Yes oriented to person, Yes oriented to place and Yes confused; not oriented to time Eye: COMMON NORMALS: Equal, round and reactive pupils present and EOMs intact bilaterally PUPIL: Yes Equal, round and reactive pupils present Neck/C-Spine: COMMON NORMALS: no lymphadenopathy Resp: COMMON NORMALS: normal respiratory effort, No retractions, No use of accessory muscles and clear to auscultation bilaterally AUSCULTATION: clear to auscultation bilaterally Cardio: COMMON NORMALS: regular rate, regular rhythm, S1 normal heart sound present and S2 normal heart sound present RATE: regular rate RHYTHM: regul ar rhythm HEART SOUNDS: S1 normal heart sound present and S2 normal heart sound present GI: OTHER: Abdomen soft, distended, diminished bowel sounds in all 4 quadrants, no guarding, no rebound, no rigidity, EFREM drain in place, surgical site looks clean and dry Extremity: COMMON NORMALS: no pedal edema Neuro: SENSORIUM/ORIENTATION: Yes oriented to person, Yes oriented to place and No oriented to time OTHER: Follows commands such as squeezing my fingers, wiggling his toes able to smile for me I cannot discern any focal neurologic deficits, more delirious than focal Urinary Catheter Management: Conteh: Cath Placed During This Visit: yes Reason for Continuing Indwelling Catheter: Accurate Measurement of Urinary Output in Critically Ill Patients Urinary Catheter Date of Insertion: 03/27/23 Urinary Catheter Time of Insertion: 19:10 Data 03/28/23 12:20 03/28/23 12:20 Micro: Microbiology 03/27/23 18:03 Blood Culture - Preliminary Blood Escherichia coli 03/27/23 17:55 Blood Culture - Preliminary Blood SPECIMEN COLLECTED A&P Assessment and plan (1) Bowel perforation: (2) ASHD (arteriosclerotic heart disease): (3) Diabetes 1.5, managed as type 2: (4) HTN (hypertension): (5) Hyperlipidemia: (6) Septic shock: (7) Acute renal failure: (8) Acute encephalopathy: (9) E coli bacteremia: (10) Metabolic acidosis: (11) Lactic acidosis: (12) CHRISTY (obstructive sleep apnea): Plan Acute encephalopathy -Likely please secondary to sepsis, septic shock, gram-negative bacteremia -Neurochecks -Aspiration precautions Septic shock -Sepsis -Due to gram-negative bacteremia -Maintain MAP greater than 65 -We will prioritize fluid boluses of 500 cc, but he is developing an elevated BNP, risk of fluid overload with acute renal failure -Levophed if needed to maintain MAP greater than 65 -Place PICC line Gram-negative bacteremia -Secondary to bowel perforation Perforated bowel -Status exploratory laparotomy, with repair of colotomy, post abdominal washout -EFREM drain in place -NG tube in place -N.p.o. -General surgery consulted History of CAD -Complaints of chest pain - serial EKGs, serial troponins, telemetry monitoring -cardiac echo History of CVA -With his encephalopathy I will order a CT of his head Obstructive sleep apnea, continue BiPAP tonight Acute renal failure, creatinine 4.3, consult nephrology Metabolic acidosis, IV fluids, maintain MAP in 65, 1 amp of bicarb Full code Heparin for DVT prophylaxis Protonix GI prophylaxis Attestations Medical Necessity Statement*: Patient requires hospitalization for gram-negative bacteremia, perforated bowel, acute encephalopathy metabolic acidosis, acute renal failure, septic shock Coding Level of Care Code Critical Care >/= 30 minutes Critical care time (in minutes): 45 The high probability of a clinically significant, sudden or life threatening deterioration, as referenced in this documentation, required my full and direct attention, intervention and personal management. The critical care time shown is in addition to time spent performing any reported separately billable procedures and includes the following: [x] Data and vital sign review and interpretation [x ] Patient assessment, examination and intervention [x] Medication orders and management [x] Patient/Family updates as able [x] Care Coordination and Document ation. Diagnoses Bowel perforation K63.1 ASHD (arteriosclerotic heart disease) I25.10 Diabetes 1.5, managed as type 2 E13.9 HTN (hypertension) I10 Hyperlipidemia E78.5 Septic shock A41.9; R65.21 Acute renal failure N17.9 Acute encephalopathy G93.40 E coli bacteremia R78.81; B96.20 Metabolic acidosis E87.20 Lactic acidosis E87.20 CHRISTY (obstructive sleep apnea) G47.33
[2023-03-28] MEDS: sodium bicarbonate 8.4% 1 mEq/mL 50mL Syr 50 MEQ IVP (14:42)
--- NOTE | 2023-03-28 15:01 | PM.CONSULT ---
Providers/Reason For Consult Consulting Physician/Specialty*: Smita Cho DO, telenephrology Reason for Consult*: Acute kidney injury, metabolic acidosis Requesting Physician: Felix Gupta MD Attending Physician: Eric Light DO Primary Care Provider: Ramiro Villavicencio MD History of Present Illness History of Present Illness Jhon Marcos is a 77 year old male underwent exploratory lap and repair of perforated sigmoid colon s/p colonoscopy. History of stage 4 CKD, serum Cr was 3.6 mg/dL 1 year ago. Following with outpatient nephrology. Review of Systems Narrative: + abdominal pain, weakness Medications/Allergies Home Medications Medication Instructions Recorded Confirmed Last Taken Type alprazolam 1 mg tablet (Xanax) 1 mg PO BEDTIME PRN Anxiety 11/22/19 03/28/23 03/27/23 History amlodipine 5 mg tablet 5 mg PO BID@,11/22/19 03/28/23 03/21/23 History atorvastatin 40 mg tablet 40 mg PO DAILY@2100 11/22/19 03/28/23 03/27/23 History bupropion HCl 150 mg 24 hr tablet, 150 mg PO DAILY@79911/22/19 03/28/23 03/27/23 History extended release (Wellbutrin XL) carbidopa 25 mg-levodopa 100 mg 1 tab PO BID@11/22/19 03/28/23 03/27/23 History tablet citalopram 40 mg tablet 40 mg PO DAILY@79911/22/19 03/28/23 03/27/23 History clopidogrel 75 mg tablet 75 mg PO DAILY@79911/22/19 03/28/23 03/21/23 History nitroglycerin 0.4 mg sublingual 0.4 mg sublingual Q5M PRN Chest 11/22/19 03/28/23 03/21/23 History tablet (Nitrostat) Pain propranolol 80 mg capsule,24 80 mg PO DAILY@79911/22/19 03/28/23 03/27/23 History hr,extended release (Inderal LA) bisoprolol 10 1 tab PO DAILY@0800 07/03/20 03/28/23 03/27/23 History mg-hydrochlorothiazide 6.25 mg tablet ferrous fumarate 325 mg (106 mg 325 mg PO DAILY 04/08/22 03/28/23 03/27/23 History iron) tablet finasteride 5 mg tablet 5 mg PO DAILY 04/08/22 03/28/23 03/27/23 History glimepiride 2 mg tablet 2 mg PO DAILY 04/08/22 03/28/23 03/27/23 History quetiapine 50 mg tablet (Seroquel) 100 mg PO DAILY 04/08/22 03/28/23 03/27/23 History sodium bicarbonate 650 mg tablet 650 mg PO BID 04/08/22 03/28/23 03/27/23 History isosorbide mononitrate 30 mg 30 mg PO DAILY #90 tabs 08/29/22 03/28/23 03/27/23 Rx tablet,extended release 24 hr albuterol sulfate 90 mcg/actuation 1 inh inhalation QID PRN shortness 11/14/22 03/28/23 03/21/23 Rx aerosol inhaler (Ventolin HFA) of breath or wheezing #8.5 grams acyclovir 200 mg capsule 200 mg PO 5XD PRN outbreaks 03/28/23 03/28/23 Unknown History calcitriol 0.25 mcg capsule See Rx Instructions .Route .COMPLEX 03/28/23 03/28/23 03/26/23 History cholecalciferol (vitamin D3) 50 100 mcg PO DAILY 03/28/23 03/28/23 03/27/23 History mcg (2,000 unit) tablet (Vitamin D3) pantoprazole 40 mg tablet,delayed 40 mg PO DAILY 03/28/23 03/28/23 03/27/23 History release tamsulosin 0.4 mg capsule 0.4 mg PO BID 03/28/23 03/28/23 03/27/23 History Allergies Allergy/AdvReac Type Severity Reaction Status Date / Time Penicillins Allergy Unknown Unknown Verified 03/21/23 08:36 Current Medications Generic Name Dose Route Start Last Admin Trade Name Freq PRN Reason Stop Dose Admin Heparin Sodium (Porcine) 5,000 unit 03/27/23 20:30 03/28/23 12:34 Heparin 5,000 Unit/Ml Inj 1 Ml SUBCUT 5,000 unit Q8H JOSEPHINE Administration Hydromorphone HCl 1 mg 03/27/23 20:20 03/28/23 14:35 Hydromorphone 1 Mg/Ml Inj 1 Ml IVP 1 mg Q2H PRN Administration PAIN Sodium Chloride 1,000 mls @ 125 mls/hr 03/27/23 20:30 03/28/23 12:05 Sodium Chloride 0.9% IV 125 mls/hr .Q8H JOSEPHINE Infusion Metronidazole 500 mg in 100 mls @ 100 mls/hr 03/28/23 09:00 03/28/23 10:55 Flagyl Iv IV Infused Q8H JOSEPHINE Infusion Protocol Insulin Human Lispro 0 unit 03/28/23 12:00 03/28/23 11:55 Insulin Lispro 100 Unit/1 Ml SUBCUT Not Given TIDWM JOSEPHINE Protocol Ondansetron HCl 4 mg 03/27/23 20:20 03/27/23 21:19 Ondansetron 2 Mg/Ml Sdv 2 Ml IVP 4 mg Q4H PRN Administration vomiting, or N/V if npo Pantoprazole Sodium 40 mg 03/27/23 20:30 03/27/23 20:50 Pantoprazole 40 Mg Sdv IVP 40 mg Q24H JOSEPHINE Administration PFSH Acute PFSH: Medical History ASHD (arteriosclerotic heart disease) BPH (benign prostatic hyperplasia) Diabetes 1.5, managed as type 2 History of stroke HTN (hypertension) Hyperlipidemia Myocardial infarct Surgical History H/O esophagogastroduodenoscopy (09/26/20) History of colonoscopy (09/26/20) History of knee replacement (~2014) History of shoulder replacement S/P knee replacement S/P PTCA (percutaneous transluminal coronary angioplasty) S/P shoulder replacement Family History Mother Dementia Denies family history of Family history of premature coronary artery disease Social History Smoking and tobacco status: former smoker Quit status (tobacco): has quit using tobacco Year quit tobacco: 1971 Former quit date comment: 2ppd x 10 years Alcohol intake: never Household members: spouse Marital status: service: No Current occupational status: retired Vitals/I&O/Wt Last Vital Signs Temp 98.2 F 03/28/23 07:15 Pulse 96 03/28/23 14:00 Resp 21 H 03/28/23 14:35 BP 93/65 03/28/23 12:45 Pulse Ox 95 03/28/23 14:35 O2 Del Method Nasal Cannula 03/28/23 13:02 O2 Flow Rate 2 03/28/23 13:02 03/28/23 03/28/23 03/28/23 06:59 14:59 22:59 Intake Total 831.25 / 3081.25 663.333 / 663.333 Output Total 430 / 1035 65 / 65 Balance 401.25 / 2046.25 598.333 / 598.333 Weight last 48 hrs Weight 102.512 kg Physical Exam Const: OTHER: lethargic Extremity: NARRATIVE EXTREMITY EXAM: no edema Urinary Catheter Management: Conteh: Cath Placed During This Visit: yes Reason for Continuing Indwelling Catheter: Accurate Measurement of Urinary Output in Critically Ill Patients Urinary Catheter Date of Insertion: 03/27/23 Urinary Catheter Time of Insertion: 19:10 Data 03/28/23 12:20 03/28/23 12:20 Other Labs: lactic acid 2.7, LFT normal, urinalysis 1+ protein BC growing e.coli Micro: Microbiology 03/27/23 18:03 Blood Culture - Preliminary Blood Escherichia coli 03/27/23 17:55 Blood Culture - Preliminary Blood SPECIMEN COLLECTED US: Radiologist's impression: 02/2022 1.? Multiple bilateral simple renal cysts similar in appearance to 2019. 2.? Largest on the RIGHT mid kidney measuring 3.4 x 3.3 x 4.3 CM. This measures slightly larger today. 3.? Largest cyst LEFT kidney involving the inferior pole measuring 7.2 x 3.6 x 4.4 CM. 4.? Bladder is decompressed. ABG Interpretation 1: 03/28/23 09:25 ABG pH 7.23 L ABG pCO2 35.6 ABG pO2 74.1 L ABG HCO3 14.9 L ABG Base Excess -11.7 L My Interpretation: primary metabolic acidosis and respiratory acidosis Other data: seen via telemedicine with assistance of RN at bedside A&P Assessment and plan (1) MAYTE (acute kidney injury): Plan 1. Acute kidney injury due to sepsis 2. E.coli sepsis s/p repair of perforated sigmoid colon 3. Increased anion gap metabolic acidosis due to lactate and renal impairment. There is a chronic component (taking sodium bicarbonate as outpatient). 4. Stage 4 CKD, does not know cause. possible polycystic kidney disease 5. Anemia, history of recent transfusion 6. History of diabetes, hypertension, coronary artery disease Recommend: Continue IVF hydration; add sodium bicarbonate. Adjust medications for low eGFR. Avoid nephrotoxins Consult Attestations Medical Necessity Statement: critically ill in ICU Time Spent in Patient Care: 16 - 35 minutes Coding Level of Care Code Acute Code for [facility] Fwd Diagnoses MAYTE (acute kidney injury) N17.9
--- NOTE | 2023-03-28 15:07 | ECG_ITS ---
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 Measurements Intervals [place] Rate: 108 P: 50 GA: 205 QRS: -28 QRSD: 91 T: -9 QT: 311 QTc: 418 Interpretive Statements SINUS TACHYCARDIA LOW QRS VOLTAGE IN PRECORDIAL LEADS [QRS DEFLECTION < 1.0 mV IN CHEST LEADS] INFERIOR MYOCARDIAL INFARCTION , PROBABLY OLD [40+ ms Q WAVE AND/OR ST/T ABNORMALITY IN II/aVF] ANTEROSEPTAL MYOCARDIAL INFARCTION , OF INDETERMINATE AGE [40+ ms Q WAVE IN V1-V4] Compared to ECG 03/28/2023 13:18:58 Sinus rhythm no longer present Myocardial infarct finding still present Electronically Signed On 03-28-2023 20:56:54 CDT by Gabriela Church M.D. [id number]
[2023-03-28 15:12] LABS: Troponin 5 2HR 42.32 ng/L (0-15)
--- NOTE | 2023-03-28 15:13 | CTR_ITS ---
PROCEDURE INFORMATION: Exam: CT Head Without Contrast Exam date and time: 03/28/2023 10:25 PM Age: 77 years old Clinical indication: Altered mental status/memory loss; Confusion or disorientation; Patient HX: Severe confusion. History of TIA. ; Additional info: AMS, history of TIA TECHNIQUE: Imaging protocol: Computed tomography of the head without contrast. Radiation optimization: All CT scans at this facility use at least one of these dose optimization techniques: automated exposure control; mA and/or kV adjustment per patient size (includes targeted exams where dose is matched to clinical indication); or iterative reconstruction. REPORTING DATA: Count of CT and Cardiac NM exams in prior 12 months: This patient has received [address] and 0 known cardiac nuclear medicine studies in the 12 months prior to the current study. COMPARISON: No relevant prior studies available. RADIATION DOSE METRICS: Total DLP (mGy-cm): 1746.88 FINDINGS: Limited: Study is technically limited due to motion artifact. Brain: There is no evidence of intracranial hemorrhage. There are no areas of mass effect, edema or midline shift. There are diffuse indistinct areas of decreased attenuation involving the periventricular white matter likely secondary to chronic white matter microvascular changes. There is age-related cerebral volume loss responsible for prominence of the cortical sulci. Cerebral ventricles: There is mild proportionate ventricular dilatation believed secondary to age related cerebral volume loss. Paranasal sinuses: Visualized sinuses are unremarkable. No fluid levels. Mastoid air cells: Visualized mastoid air cells are well aerated. Bones/joints: Unremarkable. No acute fracture. Soft tissues: Unremarkable. CT/CT head wo con* [id number] IMPRESSION: Technically limited study. No acute intracranial abnormalities.
[2023-03-28 15:15] LABS: Troponin 5 2HR Delta 4.32 ABS# (0-10)
--- NOTE | 2023-03-28 16:46 | XRR_ITS ---
PROCEDURE INFORMATION: Exam: XR Chest Exam date and time: 03/28/2023 5:00 PM Age: 77 years old Clinical indication: Device placement; Picc; Additional info: Picc placement TECHNIQUE: Imaging protocol: Radiologic exam of the chest. Views: 1 view. COMPARISON: CR XR chest 1V portable [id number] 03/28/2023 12:21 PM FINDINGS: Tubes, catheters and devices: Right-sided PICC tip is probably in the upper right atrium. Nasogastric tube is outside of the field of view but below the diaphragm. Lungs: Reduced lung volumes. Left basilar opacity is again seen. Minimal infiltrate or atelectasis in the right mid lung field. Pleural spaces: Unremarkable. No pleural effusion. No pneumothorax. Heart/Mediastinum: Unremarkable. No cardiomegaly. Bones/joints: Unremarkable. XR/XR chest 1V portable [id number] IMPRESSION: 1. Right-sided PICC tip is probably in the upper right atrium. 2. Left basilar opacity is again seen. Minimal infiltrate or atelectasis in the right mid lung field.
[2023-03-28] MEDS: sodium bicarbonate 50 MEQ in sodium chloride 0.45% 1,000 ML 100 MEQ IV (17:08)
--- NOTE | 2023-03-28 17:13 | PC.NURSE ---
Addendum entered by Karen Ma RN 03/28/23 17:24: Per radiology note: PICC Tip Probably in R Atrium. Retracted PICC 2cm, secured device, performed sterile dressing change. Maddie COX to obtain new chest x-ray Original Note: PICC Insertion Consulted by house charge for PICC placement for IV therapy >15d. Upon arrival to room discussed procedure and provided verbal and written education with patient and his spouse. Obtained written consent from patient's spouse. US guided assessment found RUE Cephalic best target for cannulation due to size and lack of evidence of thrombus or stenosis. Using US guidance, MST and Sterile technique, accessed vein x1 stick. Advanced device without resistance. Positive blood return and flushed easily in all lumens. Device secured. EBL <5mL. Xray obtained to confirm tip placement. Patient tolerated well. Handed off to primary nurse Maddie COX.
[2023-03-28] MEDS: dextrose 50% syringe 50 mL 25 ML IVP (17:29)
[2023-03-28 17:38] LABS: Glucose Point of Care 49 mg/dL (70-110); Glucose Point of Care 51 mg/dL (70-110)
--- NOTE | 2023-03-28 18:00 | ECG_ITS ---
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 Measurements Intervals [place] Rate: 108 P: 29 NV: 196 QRS: -26 QRSD: 90 T: 0 QT: 311 QTc: 418 Interpretive Statements SINUS TACHYCARDIA LOW QRS VOLTAGE IN PRECORDIAL LEADS [QRS DEFLECTION < 1.0 mV IN CHEST LEADS] SEPTAL MYOCARDIAL INFARCTION , OF INDETERMINATE AGE [40+ ms Q WAVE IN V1/V2] INFERIOR MYOCARDIAL INFARCTION , PROBABLY OLD [40+ ms Q WAVE AND/OR ST/T ABNORMALITY IN II/aVF] Compared to ECG 03/28/2023 15:07:11 No significant changes Electronically Signed On 03-28-2023 20:56:02 CDT by Gabriela Church M.D. [id number]
[2023-03-28] MEDS: vancomycin 1,500 MG/300 ML PIGGYBACK 200 MG IV (18:41)
[2023-03-28 18:59] LABS: Troponin 5 6HR 47.83 ng/L (0-15)
[2023-03-28 19:06] LABS: Troponin 5 6HR Delta 9.83 ng/L (0-12)
--- NOTE | 2023-03-28 19:34 | PC.NURSE ---
Shift summary: Pt rested in bed throughout the shift. He is alert to self, at times he knows about his abdomen and/or his . He has moaned off and on in a sing-song voice throughout the shift. He has received Dilaudid 3 times this shift for pain. Per his , Aliyah, he plays electronic keyboard and sings alot and is very talkative at home. Sinus rhythm to tachycardia with first degree block on monitor. He has had 3 very soft BP noted this shift but next BP with be WNL. He has received a fluid bolus, Magnesium replacement this shift He was started on Cipro, Metronidazole and Vancomycin antibiotics this sift. His IVF changed , has Biarb , see MAR. He was started on D5W this evening after blood sugar of 51mg/dl, he also had half amp of D50 as per Hypoglycemia protocol, Dr Hernandez was notified. Nephrology consult stated today, his BUN and creatinine continue to increase and his urine output was only 50ml. Bowel sounds noted in all 4 quadrants, LLQ being the only quadrant hyoactive. No belching of flatulence noted this shift. NG remians to LIS with scant to minimal clear pink output. , Aliyah, has been at bedside most of shift, very attentive, helping to redirect pt when he hand gets near tubes and lines.
[2023-03-28 20:08] LABS: Glucose Point of Care 77 mg/dL (70-110)
[2023-03-28] MEDS: pantoprazole 40 mg SDV IVP (20:08)
[2023-03-28] MEDS: LORazepam 2 mg/mL INJ 1 mL 1 MG IVP (21:43)
--- NOTE | 2023-03-28 23:18 | XRR_ITS ---
PROCEDURE INFORMATION: Exam: XR Chest Exam date and time: 03/28/2023 11:23 PM Age: 77 years old Clinical indication: Device placement; Prior surgery; Surgery date: 6+ months; Surgery type: RT shoulder; Patient HX: Check post picc placement TECHNIQUE: Imaging protocol: Radiologic exam of the chest. Views: 1 view. COMPARISON: CR (CHEST, ) 03/28/2023 5:00 PM FINDINGS: Tubes, catheters and devices: There is a PICC line projecting over the right atrium 2 cm below the cavoatrial junction. There is an NG tube coursing into the stomach below the field of view. Lungs: Lung volumes remain significantly decreased. There is persistent consolidation left lung base unchanged. Pleural spaces: Unremarkable. No pleural effusion. No pneumothorax. Heart/Mediastinum: Heart remains mildly enlarged. Bones/joints: Unremarkable for age. XR/XR chest 1V portable [id number] IMPRESSION: 1. Tubes and lines as discussed above. 2. Persistent left basilar consolidation unchanged.
--- NOTE | 2023-03-28 23:37 | XRR_ITS ---
PROCEDURE INFORMATION: Exam: XR Chest Exam date and time: 03/28/2023 11:43 PM Age: 77 years old Clinical indication: Device placement; Ng tube; Prior surgery; Surgery date: 6+ months; Surgery type: RT shoulder; Patient HX: Check S/P new ng placement due to PT pulling ng out. ; Additional info: Picc placement TECHNIQUE: Imaging protocol: Radiologic exam of the chest. Views: 1 view. COMPARISON: CR (CHEST, ) 03/28/2023 11:23 PM FINDINGS: Tubes, catheters and devices: There is an NG tube coursing into the body of the stomach with the tip projecting below the field of view and appears in adequate position. There is a right-sided PICC line unchanged in position. Lungs: Lung volumes remain decreased with a opacity left lung base unchanged. Pleural spaces: Unremarkable. No pleural effusion. No pneumothorax. Heart/Mediastinum: Unremarkable. No cardiomegaly. Bones/joints: Prior partial right shoulder replacement. No acute bony abnormalities. XR/XR chest 1V portable [id number] IMPRESSION: NG tube appears in satisfactory position.
--- NOTE | 2023-03-28 23:53 | PC.NURSE ---
Patient is confused and pulled on NG tube almost pulling it out. NG tube was advanced and placement was confirmed with an X-ray and auscultation. Doctor notified and got an order for soft restraints and a basic metabolic panel. Patient was placed in soft restraints to prevent anymore pulling of lines.
[2023-03-29] VITALS (45 sets, daily range): BP systolic 82–152; BP diastolic 40–89; PULSE 85–167; RESP 16–36; TEMP 36.6–37.7; O2SAT 90–98
[2023-03-29 01:06] LABS: Anion Gap 21.1 (5-19); Blood Urea Nitrogen 34 mg/dL (8-23); Calcium 8.6 mg/dL (8.5-10.5); Carbon Dioxide 15 mmol/L (22-29); Chloride 105 mmol/L (98-107); Glucose 89 mg/dL (65-115); Osmolality Calculated 289 mOsm/kg (285-295); Potassium 5.1 mmol/L (3.5-5.1); Sodium 136 mmol/L (136-145)
[2023-03-29] MEDS: metroNIDAZOLE IV 500 MG/100 ML PREMIX 100 MG IV ×2 (01:06→08:06)
[2023-03-29] MEDS: HYDROmorphone 1 mg/mL INJ 1 mL IVP ×5 (01:14→23:21)
--- NOTE | 2023-03-29 01:38 | PM.MISC ---
Miscellaneous Note Purpose of Documentation: CTSP re: agitation Note: initally given ativan 1 mg with good result. Then the patient went for CT Head and has been agitated ever since. Review of chart shows that pt takes seroquel 100 mg daily. Currently not taking anything via NGT. D/W pharmacist , will use zyprexa ODT for agitation. Repeat labs show worseing bicarb level and renal function. D/W pharmacist that pt on low dose of bicarb gtt. And considering pt takes bicarb at home will order the usual dose of 150 meq per 1 L and run at usual rate of 100 ml per hour. Aware of 40-45% EF, however, bicarb will help with renal failure and met acidosis. Reviewed CT head, no acute. lots of artifact. appears to have temp lobe atrophy and WMD. Pt may require CRRT. Consider transfer.
[2023-03-29] MEDS: OLANZapine 5 mg ODT 10 MG PO ×2 (01:40→20:25)
[2023-03-29] MEDS: sodium bicarbonate 150 MEQ in sodium chloride 0.45% 1,000 ML 100 MEQ IV (01:40)
[2023-03-29] MEDS: heparin 5,000 unit/mL INJ 1 mL 5000 UNIT SUBCUT (03:40)
[2023-03-29 04:29] LABS: ABG PCO2 32.7 mmHg (35-45); ABG PH Result 7.28 (7.35-7.45); Arterial Blood Gas Hematocrit 25.2 % (42-52); Base Excess ABG -10.4 mmol/L (-2.0-2.0); Blood Gas Allen Test Pos; Blood Gas Sample Site Radial, right; Blood Gas Sample Type Arterial; HCO3 ABG 15.4 mmol/L (22-26); PO2 ABG 56.4 mmHg (80.0-100.0)
[2023-03-29 04:45] LABS: Hematocrit 26.5 % (37-53); Mean Corpuscular HGB Conc 30.6 g/dL (30-55); Mean Corpuscular Hemoglobin 29.6 pg (27-33); Mean Corpuscular Volume 96.7 fl (82-101); Mean Platelet Volume 10.1 fL (7.4-10.4); Platelet Count 214 10^3/cmm (157-399); Red Blood Count 2.74 10^6/uL (3.85-5.65); Red Cell Distribution Width 13.9 % (12.1-15.1); White Blood Count 12.01 10^3/uL (3.29-11.43)
[2023-03-29 04:52] LABS: INR 1.27 (0.8-1.2)
[2023-03-29 05:02] LABS: C Reactive Protein 290.8 mg/L (0.0-4.9)
[2023-03-29 05:05] LABS: NT Pro B Type Natriuretic Pept 9865 pg/mL (0-450); Procalcitonin 71.15 ng/mL (0-0.5)
[2023-03-29 05:16] LABS: Anion Gap 19.8 (5-19); Blood Urea Nitrogen 36 mg/dL (8-23); Calcium 8.4 mg/dL (8.5-10.5); Carbon Dioxide 17 mmol/L (22-29); Chloride 103 mmol/L (98-107); Glucose 88 mg/dL (65-115); Magnesium 1.5 mg/dL (1.7-2.3); Osmolality Calculated 288 mOsm/kg (285-295); Phosphorus 5.5 mg/dL (2.5-4.5); Potassium 4.8 mmol/L (3.5-5.1); Sodium 135 mmol/L (136-145)
[2023-03-29] MEDS: LORazepam 2 mg/mL INJ 1 mL 1 MG IVP ×3 (05:23→23:22)
[2023-03-29 05:31] LABS: Slide Review Slide Review Perform
[2023-03-29 05:35] LABS: Basophils % 0.1 %; Lymphocytes # 0.9 10^3/uL (0.8-4.8); Lymphocytes % 7.8 %; Monocytes # 0.4 10^3/uL (0.2-0.9); Monocytes % 3.1 %; Neutrophils # 9.83 10^3/uL (1.8-7.7); Neutrophils % 81.8 %; Nucleated Red Blood Cells % 0 %
--- NOTE | 2023-03-29 07:00 | XRR_ITS ---
PROCEDURE INFORMATION: Exam: XR Chest Exam date and time: 03/29/2023 7:51 AM Age: 77 years old Clinical indication: Shortness of breath; Additional info: SOB TECHNIQUE: Imaging protocol: Radiologic exam of the chest. Views: 1 view. COMPARISON: CR (CHEST, ) 03/28/2023 11:43 PM FINDINGS: Tubes, catheters and devices: An enteric tube is noted with the distal tip below the level of the diaphragm in the region of the stomach. Lungs: Left basilar consolidation. The remainder of the lung parenchyma is clear. Pleural spaces: Small left-sided pleural effusion similar to prior exam. Heart/Mediastinum: The heart is mildly enlarged for size similar to prior exam. Vasculature: Right-sided vascular line noted with the distal tip at the cavoatrial junction. Bones/joints: Unremarkable. XR/XR chest 1V portable [id number] IMPRESSION: 1. Left basilar consolidation could be consistent with atelectasis, difficult to exclude pneumonia. 2. Small left-sided pleural effusion. 3. Stable cardiomegaly.
[2023-03-29 08:07] LABS: Glucose Point of Care 96 mg/dL (70-110)
[2023-03-29] MEDS: meropenem 1,000 MG in sodium chloride 0.9% (plus) 50 ML 100 MG IV (09:31)
[2023-03-29] MEDS: magnesium sulfate premix 2 GM/50 ML PIGGYBACK IV (09:31)
--- NOTE | 2023-03-29 09:38 | P.PN_ITS ---
Subjective Subjective: altered mental status - had CT head family at bedside afib, RVR Vitals/I&O/Wt Last Vital Signs Temp 99.1 F 03/29/23 08:30 Pulse 105 H 03/29/23 08:30 Resp 24 H 03/29/23 08:30 BP 103/83 03/29/23 08:30 Pulse Ox 92 03/29/23 08:30 O2 Del Method Nasal Cannula 03/29/23 08:30 O2 Flow Rate 2 03/29/23 08:30 FiO2 2 03/29/23 07:48 03/28/23 03/29/23 03/29/23 22:59 06:59 14:59 Intake Total 1136.524 / 2299.857 193.599 / 2493.456 100 / 100 Output Total 175 / 270 225 / 495 50 / 50 Balance 961.524 / 2029.857 -31.401 / 1998.456 50 / 50 Weight last 48 hrs Weight 102.512 kg Physical Exam Const: GENERAL APPEARANCE: in distress Urinary Catheter Management: Conteh: Cath Placed During This Visit: yes Reason for Continuing Indwelling Catheter: Accurate Measurement of Urinary Output in Critically Ill Patients Urinary Catheter Date of Insertion: 03/27/23 Urinary Catheter Time of Insertion: 19:10 Data 03/29/23 04:19 03/29/23 04:49 Other Labs: lactate 3 albumin 3.5, Ca 8.4, Mg 1.5, phos 5.5 Micro: Microbiology 03/27/23 18:03 Blood Culture - Preliminary Blood Escherichia coli 03/27/23 17:55 Blood Culture - Final Blood CXR: Radiologist's impression: 1. ? Left basilar consolidation could be consistent with atelectasis, difficult to exclude pneumonia. 2. ? Small left-sided pleural effusion. 3. ? Stable cardiomegaly. ? ABG Interpretation 1: 03/28/23 03/29/23 09:25 04:20 ABG pH 7.23 L 7.28 L ABG pCO2 35.6 32.7 L ABG pO2 74.1 L 56.4 L ABG HCO3 14.9 L 15.4 L ABG Base Excess -11.7 L -10.4 L Other data: seen via telemedicine with assitance of RN at bedside A&P Assessment and plan (1) MAYTE (acute kidney injury): Plan 1. Acute kidney injury due to sepsis, oliguric, I/O + 4L 2. E.coli sepsis s/p repair of perforated sigmoid colon 3. Increased anion gap metabolic acidosis due to lactate and renal impairment. There is a chronic component (taking sodium bicarbonate as outpatient). 4. new onset atrial fibrillation 5. Stage 4 CKD, does not know cause. possible polycystic kidney disease, baseline eGFR 15 ml/min 6. Anemia, history of recent transfusion, Hb stable 7. History of diabetes, hypertension, coronary artery disease Recommend: Continue IVF hydration with sodium bicarbonate, change to d5W with 150 mEq/L sodium bicarbonate. Adjust medications for low eGFR. Avoid nephrotoxins. Discussed indications for dialysis with . Issue now is acidosis and possible declining respiratory status. If condition worsens, r ecommend temporary HD catheter. Will will try intermittent HD before comitting to CRRT Attestations Medical Necessity Statement*: critically ill in ICU Time Spent in Patient Care: 16 - 35 minutes Coding Level of Care Code Acute Code for [facility] Diagnoses MAYTE (acute kidney injury) N17.9
--- NOTE | 2023-03-29 10:01 | PM.PN ---
Subjective Subjective: Patient even more confused this morning but still not having any abdominal pain Vitals/I&O/Wt Last Vital Signs Temp 99.1 F 03/29/23 08:30 Pulse 105 H 03/29/23 08:30 Resp 24 H 03/29/23 08:30 BP 103/83 03/29/23 08:30 Pulse Ox 92 03/29/23 08:30 O2 Del Method Nasal Cannula 03/29/23 08:30 O2 Flow Rate 2 03/29/23 08:30 FiO2 2 03/29/23 07:48 03/28/23 03/29/23 03/29/23 22:59 06:59 14:59 Intake Total 1136.524 / 2299.857 193.599 / 2493.456 100 / 100 Output Total 175 / 270 225 / 495 50 / 50 Balance 961.524 / 2029.857 -31.401 / 1998.456 50 / 50 Weight last 48 hrs Weight 226 lb Physical Exam Narrative: General: No acute distress Abdomen: Soft, nondistended, appropriately tender to palpation Drain serosanguineous Incision intact without erythema or exudate Urinary Catheter Management: Conteh: Cath Placed During This Visit: yes Reason for Continuing Indwelling Catheter: Accurate Measurement of Urinary Output in Critically Ill Patients Urinary Catheter Date of Insertion: 03/27/23 Urinary Catheter Time of Insertion: 19:10 Data 03/29/23 04:19 03/29/23 04:49 Micro: Microbiology 03/27/23 18:03 Blood Culture - Preliminary Blood Escherichia coli 03/27/23 17:55 Blood Culture - Final Blood A&P Assessment and plan (1) Bowel perforation: Plan Status post exploratory laparotomy with primary repair of colotomy which occurred during a colonoscopy at an outside facility Antibiotics ICU management-appreciate hospitalist input Await return of bowel function Attestations Medical Necessity Statement*: Patient requires multiple more nights in the hospital for intensive care and recovery after bowel perforation Coding Level of Care Code Acute Code for [facility] Fwd Diagnoses Bowel perforation K63.1
[2023-03-29] MEDS: dexmedetomidine 400 MCG in sodium chloride 0.9% (100 ml) 100 ML 5.33 MCG IV (10:05)
--- NOTE | 2023-03-29 10:19 | USR_ITS ---
PROCEDURE INFORMATION: Exam: US Duplex Lower Extremity Veins, Bilateral Exam date and time: 03/29/2023 10:45 AM Age: 77 years old Clinical indication: Swelling (edema) of limb; Lower extremity, bilateral; Additional info: Dvt TECHNIQUE: Imaging protocol: Real-time duplex ultrasound of the bilateral extremities with 2-D white scale, color Doppler flow and spectral waveform analysis including responses to compression and other maneuvers (when performed) with image documentation. Complete exam focused on the lower extremity veins. COMPARISON: US renal BI* [id number] 12/12/2021 2:07 PM FINDINGS: Right deep veins: The common femoral, femoral, popliteal, and calf veins are patent without thrombus. Left deep veins: The common femoral, femoral, popliteal, and calf veins are patent without thrombus. Superficial veins: Bilateral saphenofemoral junctions are patent without thrombus. Soft tissues: Unremarkable. US/[place] [id number] IMPRESSION: No evidence of deep vein thrombosis.
--- NOTE | 2023-03-29 10:19 | CTR_ITS ---
PROCEDURE INFORMATION: Exam: CT Chest Without Contrast; Diagnostic Exam date and time: 03/29/2023 3:40 PM Age: 77 years old Clinical indication: Abdominal tenderness; Shortness of breath; Additional info: AMS TECHNIQUE: Imaging protocol: Diagnostic computed tomography of the chest without contrast. Radiation optimization: All CT scans at this facility use at least one of these dose optimization techniques: automated exposure control; mA and/or kV adjustment per patient size (includes targeted exams where dose is matched to clinical indication); or iterative reconstruction. REPORTING DATA: Count of CT and Cardiac NM exams in prior 12 months: This patient has received 2 known CTs and 0 known cardiac nuclear medicine studies in the 12 months prior to the current study. COMPARISON: CR (CHEST, ) 03/29/2023 7:51 AM RADIATION DOSE METRICS: Total DLP (mGy-cm): 920.72 FINDINGS: Tubes, catheters and devices: There is a feeding tube present with its tip in the stomach. Right-sided venous catheter tip near superior cavoatrial junction. Lungs: Hypoventilatory changes in the trachea. Pleural spaces: Small bilateral pleural effusions. Small bilateral pleural effusions. Consolidation is seen bilaterally in the lower lobes in the posterior upper lobes adjacent to the pleural fluid. Heart: Small-sized pericardial effusion. Coronary arteries: Marked coronary artery atherosclerosis. Lymph nodes: Calcified lymph nodes left hilum. Vasculature: Normal for age. No aortic aneurysm. Bones/joints: Right shoulder replacement with associated beam hardening artifact. Soft tissues: Bilateral mild gynecomastia. PROCEDURE INFORMATION: Exam: CT Abdomen And Pelvis Without Contrast Exam date and time: 03/29/2023 3:40 PM Age: 77 years old Clinical indication: Abdominal tenderness; Shortness of breath; Additional info: AMS TECHNIQUE: Imaging protocol: Computed tomography of the abdomen and pelvis without contrast. Radiation optimization: All CT scans at this facility use at least one of these dose optimization techniques: automated exposure control; mA and/or kV adjustment per patient size (includes targeted exams where dose is matched to clinical indication); or iterative reconstruction. REPORTING DATA: Count of CT and Cardiac NM exams in prior 12 months: This patient has received 2 known CTs and 0 known cardiac nuclear medicine studies in the 12 months prior to the current study. COMPARISON: CT abdomen pelvis wo con [id number] 07/03/2020 6:21 PM RADIATION DOSE METRICS: Total DLP (mGy-cm): 920.72 FINDINGS: Tubes, catheters and devices: Feeding tube tip is seen in the stomach. There is a surgical drain present in the lower abdomen/pelvis. Liver: Normal. No mass. Gallbladder and bile ducts: There is minimal hyperdense material in the gallbladder which may be sludge or stones. No adjacent inflammation. Pancreas: Normal. No ductal dilation. Spleen: Splenic granulomata. Adrenal glands: Thickened appearance of the adrenals is unchanged. This is likely related to adenomatous hyperplasia. Kidneys and ureters: Multiple bilateral renal cysts are unchanged. Stomach and bowel: There is a small collection of fluid and gas in the deep pelvis anterior to the rectum for example on series 9, image 80 measuring 2.8 x 3.9 cm maximum size. The colon contains diverticuli with distal colonic wall thickening versus underdistention. No bowel obstruction. Appendix: No evidence of appendicitis. Intraperitoneal space: There is a small focus of free air lateral to the descending colon favored to be postoperative. Small volume ascites in the upper abdomen adjacent to the spleen. Vasculature: Normal for age. No abdominal aortic aneurysm. Lymph nodes: Unremarkable. No enlarged lymph nodes. Urinary bladder: There is a Conteh catheter in the bladder. Reproductive: Unremarkable as visualized. Bones/joints: No acute fracture. Soft tissues: There is minimal fluid in the ventral abdominal wall soft tissues deep to the skin celina measuring 3.4 x 2.0 cm for example on series 9, image 83 likely a seroma. Mild diffuse body wall edema. Left-sided fat containing inguinal hernia is unchanged. CT/[place] [id number] IMPRESSION: Small bilateral pleural effusions with adjacent dependent consolidation or atelectasis. Correlate for pneumonia. IMPRESSION: 1. There is minimal free intraperitoneal air present which is likely postoperative given history of colonic surgery. A pelvic surgical drain is in place. 2. Small collection of fluid and gas in the deep pelvis measuring 3.9 cm maximum size suspicious for an abscess. There is also a simple appearing fluid collection deep to the ventral midline abdominal wound measuring 3.4 cm favored to be a seroma. 3. Wall thickening versus underdistention in the distal colon. Correlate for possible colitis.
[2023-03-29] MEDS: sodium bicarbonate 150 MEQ in dextrose 5% 1,000 ML 100 MEQ IV (12:05)
[2023-03-29 12:24] LABS: Glucose Point of Care 94 mg/dL (70-110)
[2023-03-29] MEDS: heparin drip 25,000 UNIT/500 ML PREMIX 30 UNIT IV (12:46)
--- NOTE | 2023-03-29 16:21 | P.PN_ITS ---
Subjective Subjective: Patient was examined multiple times throughout the morning -Early in the morning was examined, is alert to person, not to place, not to time he can follow some commands such as squeezing my fingers, moving his feet, but is quite encephalopathic, low-grade temperatures overnight, normotensive not on pressors, is on 2 L -He does appear fluid overloaded, minimal urine output, elevated creatinine -Blood cultures are positive for gram-negative and gram-positive's -Spoke to nephrology, [place] potential dialysis we will watch his kidney function watch for fluid overload -Spoke to general surgery -Spoke to patient's at bedside, discussed his CODE STATUS in detail, patient would not want to have chest compressions, or CPR, but is okay with elective intubation if required -I had extensive discussion about his sepsis, his bacteremia, encephalopathy, acute renal failure, acute respiratory failure -I advised that I am concerned with his fluid overload, his anasarca, is third spacing, with his sepsis, which will compromise his respiratory status we will have to monitor his respiratory status closely, but he might require elective intubation. In terms of his renal failure if his urine output does not improve, and will likely have to pursue dialysis, to help with his acidosis help with his fluid overload, he does have underlying CKD stage IV -Patient did develop A-fib with RVR, heart rates in the 140s at around noon, will give him an amiodarone bolus followed by amiodarone drip, placed on heparin drip -Broaden his antibiotic coverage to meropenem -Monitor respiratory status closely, [facility] CT scan ordered, venous ultrasound ordered -Placed on Precedex for agitation Vitals/I&O/Wt Last Vital Signs Temp 98.8 F 03/29/23 14:30 Pulse 101 H 03/29/23 14:30 Resp 22 H 03/29/23 14:30 BP 118/51 03/29/23 14:30 Pulse Ox 94 03/29/23 14:30 O2 Del Method Nasal Cannula 03/29/23 14:30 O2 Flow Rate 2 03/29/23 14:30 FiO2 2 03/29/23 07:48 03/29/23 03/29/23 03/29/23 06:59 14:59 22:59 Intake Total 193.599 / 2493.456 336.327 / 336.327 25.185 / 361.512 Output Total 225 / 495 50 / 50 425 / 475 Balance -31.401 / 1998.456 286.327 / 286.327 -399.815 / -113.488 Weight last 48 hrs Weight 102.512 kg Physical Exam Const: COMMON NORMALS: no acute distress OTHER: Alert to person, not to place, not to time can follow some commands Eye: COMMON NORMALS: Equal, round and reactive pupils present and EOMs intact bilaterally PUPIL: Yes Equal, round and reactive pupils present Neck/C-Spine: COMMON NORMALS: no JVD Resp: COMMON NORMALS: normal respiratory effort, No retractions, No use of accessory muscles and clear to auscultation bilaterally AUSCULTATION: clear to auscultation bilaterally Cardio: COMMON NORMALS: no JVD, regular rate, regular rhythm, S1 normal heart sound present and S2 normal heart sound present RATE: regular rate RHYTHM: regular rhythm HEART SOUNDS: S1 normal heart sound present and S2 normal heart sound present GI: OTHER: Abdomen soft, distended, good bowel sounds in all quadrants, no guarding, no rebound, rigidity, surgical site looks clean and dry, EFREM drain in place Extremity: COMMON NORMALS: no pedal edema NARRATIVE EXTREMITY EXAM: Pale bilateral extremities, DP PT pulses palpable but diminished, cap refill greater than 3 seconds Urinary Catheter Management: Conteh: Cath Placed During This Visit: yes Reason for Continuing Indwelling Catheter: Accurate Measurement of Urinary Output in Critically Ill Patients Urinary Catheter Date of Insertion: 03/27/23 Urinary Catheter Time of Insertion: 19:10 Data 03/29/23 04:19 03/29/23 04:49 Micro: Microbiology 03/27/23 18:03 Blood Culture - Preliminary Blood Escherichia coli 03/27/23 17:55 Blood Culture - Final Blood A&P Assessment and plan (1) Bowel perforation: (2) ASHD (arteriosclerotic heart disease): (3) Diabetes 1.5, managed as type 2: (4) HTN (hypertension): (5) Hyperlipidemia: (6) Septic shock: (7) Acute renal failure: (8) Acute encephalopathy: (9) E coli bacteremia: (10) Metabolic acidosis: (11) Lactic acidosis: (12) CHRISTY (obstructive sleep apnea): (13) Gram-negative bacteremia: (14) Gram-positive bacteremia: (15) Acute respiratory failure with hypoxia: (16) NSTEMI (non-ST elevated myocardial infarction): (17) Systolic CHF: (18) Atrial fibrillation with RVR: Plan Acute encephalopathy -Likely secondary to sepsis, septic shock, gram-negative bacteremia -Neurochecks -Aspiration precautions Septic shock -Sepsis -Due to gram-negative bacteremia -Maintain MAP greater than 65 -Levophed if needed to maintain MAP greater than 65 - PICC line Gram-negative and gram-positive bacteremia -Continue vancomycin -Switch to meropenem -Secondary to bowel perforation A-fib with RVR -Amiodarone drip -Heparin drip Acute hypoxic respiratory failure -Secondary to fluid overload -Secondary to systolic CHF -Secondary to acute renal failure -Monitor respiratory status closely -Low threshold for intubation NSTEMI -Likely type II, related to sepsis however cannot rule out underlying cardiac etiology -Continue telemetry monitoring Perforated bowel -Status exploratory laparotomy, with repair of colotomy, post abdominal washout -EFREM drain in place -NG tube in place -N.p.o. -General surgery consulted History of CAD -Complaints of chest pain - serial EKGs, serial troponins, telemetry monitoring -cardiac echo ?LV systolic function is mildly reduced with EF of 40 to 45%.? ?Mild global hypokinesis seen. ?Grossly normal valvular structures. ?Mild tricuspid regurgitation ?Compared to prior echocardiogram from 2020, LV systolic function ?has decreased and is mildly reduced now. History of CVA -With his encephalopathy Obstructive sleep apnea, continue BiPAP tonight Acute renal failure, creatinine 4.9, consult nephrology, possible dialysis based on urine output, patient creatinine Metabolic acidosis, currently on bicarb drip DO NOT RESUSCITATE, patient's is okay with elective intubation if required Heparin for DVT prophylaxis Protonix GI prophylaxis Patient was examined multiple times throughout the morning -Early in the morning was examined, is alert to person, not to place, not to time he can follow some commands such as squeezing my fingers, moving his feet, but is quite encephalopathic, low-grade temperatures overnight, normotensive not on pressors, is on 2 L -He does appear fluid overloaded, minimal urine output, elevated creatinine -Blood cultures are positive for gram-negative and gram-positive's -Spoke to nephrology, [place] potential dialysis we will watch his kidney function watch for fluid overload -Spoke to general surgery -Spoke to patient's at bedside, discussed his CODE STATUS in detail, patient would not want to have chest compressions, or CPR, but is okay with elective intubation if required -I had extensive discussion about his sepsis, his bacteremia, encephalopathy, acute renal failure, acute respiratory failure -I advised that I am concerned with his fluid overload, his anasarca, is third spacing, with his sepsis, which will compromise his respiratory status we will have to monitor his respiratory status closely, but he might require elective intubation. In terms of his renal failure if his urine output does not improve, and will likely have to pursue dialysis, to help with his acidosis help with his fluid overload, he does have underlying CKD stage IV -Patient did develop A-fib with RVR, heart rates in the 140s at around noon, will give him an amiodarone bolus followed by amiodarone drip, placed on heparin drip -Broaden his antibiotic coverage to meropenem -Monitor respiratory status closely, [facility] CT scan ordered, venous ultrasound ordered -Placed on Precedex for agitation Attestations Medical Necessity Statement*: Patient requires hospitalization for A-fib with RVR, sepsis, septic shock, encephalopathy, perforated bowel, gram-negative bacteremia, gram-positive bacteremia, acute respiratory failure Coding Level of Care Code Critical Care >/= 30 minutes Critical care time (in minutes): 50 The high probability of a clinically significant, sudden or life threatening det erioration, as referenced in this documentation, required my full and direct attention, intervention and personal management. The critical care time shown is in addition to time spent performing any reported separately billable procedures and includes the following: [x] Data and vital sign review and interpretation [x ] Patient assessment, examination and intervention [x] Medication orders and management [x] Patient/Family updates as able [x] Care Coordination and Documentation. Diagnoses Bowel perforation K63.1 ASHD (arteriosclerotic heart disease) I25.10 Diabetes 1.5, managed as type 2 E13.9 HTN (hypertension) I10 Hyperlipidemia E78.5 Septic shock A41.9; R65.21 Acute renal failure N17.9 Acute encephalopathy G93.40 E coli bacteremia R78.81; B96.20 Metabolic acidosis E87.20 Lactic acidosis E87.20 CHRISTY (obstructive sleep apnea) G47.33 Gram-negative bacteremia R78.81 Gram-positive bacteremia R78.81 Acute respiratory failure with hypoxia J96.01 NSTEMI (non-ST elevated myocardial infarction) I21.4 Systolic CHF I50.20 Atrial fibrillation with RVR I48.91
[2023-03-29 18:06] LABS: Glucose Point of Care 155 mg/dL (70-110)
[2023-03-29] MEDS: insulin lispro 100 unit/1 mL SUBCUT (18:21)
[2023-03-29 19:10] LABS: INR 1.37 (0.8-1.2)
[2023-03-29 19:45] LABS: Partial Thromboplastin Time 128.5 SECONDS (23.9-36.7)
[2023-03-29] MEDS: pantoprazole 40 mg SDV IVP (20:25)
[2023-03-29] MEDS: ondansetron 2 mg/ML SDV 2 mL 4 MG IVP (23:21)
[2023-03-30] VITALS (40 sets, daily range): BP systolic 80–162; BP diastolic 55–121; PULSE 78–135; RESP 15–27; TEMP 36.3–37.5; O2SAT 91–97
--- NOTE | 2023-03-30 00:51 | PC.NURSE ---
0050- pt bicarb drip order has run out, dr hagen notified, no orders to continue drip at this time.
[2023-03-30] MEDS: HYDROmorphone 1 mg/mL INJ 1 mL IVP ×2 (02:16→18:00)
[2023-03-30] MEDS: dexmedetomidine 400 MCG in sodium chloride 0.9% (100 ml) 100 ML 5.33 MCG IV (02:22)
[2023-03-30 02:25] LABS: INR 1.17 (0.8-1.2)
[2023-03-30 02:34] LABS: Partial Thromboplastin Time 87.1 SECONDS (23.9-36.7)
[2023-03-30 04:43] LABS: Basophils % 0.2 %; Eosinophils % 0.1 %; Hematocrit 22.5 % (37-53); Lymphocytes # 0.8 10^3/uL (0.8-4.8); Lymphocytes % 6.3 %; Mean Corpuscular HGB Conc 31.1 g/dL (30-55); Mean Corpuscular Hemoglobin 29.3 pg (27-33); Mean Corpuscular Volume 94.1 fl (82-101); Monocytes # 0.4 10^3/uL (0.2-0.9); Monocytes % 3.1 %; Neutrophils # 11.42 10^3/uL (1.8-7.7); Nucleated Red Blood Cells % 0 %; Platelet Count 191 10^3/cmm (157-399); Red Blood Count 2.39 10^6/uL (3.85-5.65); Red Cell Distribution Width 13.8 % (12.1-15.1); White Blood Count 12.69 10^3/uL (3.29-11.43)
[2023-03-30 04:51] LABS: ABG PCO2 37.7 mmHg (35-45); ABG PH Result 7.37 (7.35-7.45)
[2023-03-30 04:52] LABS: Base Excess ABG -3.2 mmol/L (-2.0-2.0); Blood Gas Allen Test POS; Blood Gas Sample Type ARTERIAL; HCO3 ABG 21.7 mmol/L (22-26); Oxygen Device NC; PO2 ABG 69.9 mmHg (80.0-100.0)
[2023-03-30 04:57] LABS: Lactate (Lactic Acid level) 1.9 mmol/L (0.5-2.2)
[2023-03-30 05:01] LABS: Arterial Blood Gas Hematocrit 26.9 % (42-52)
[2023-03-30 05:12] LABS: Blood Urea Nitrogen 50 mg/dL (8-23); Calcium 8.6 mg/dL (8.5-10.5); Carbon Dioxide 22 mmol/L (22-29); Chloride 101 mmol/L (98-107); Glucose 126 mg/dL (65-115); Magnesium 2.1 mg/dL (1.7-2.3); Osmolality Calculated 301 mOsm/kg (285-295); Phosphorus 4.8 mg/dL (2.5-4.5); Sodium 138 mmol/L (136-145)
[2023-03-30 05:17] LABS: NT Pro B Type Natriuretic Pept 11261 pg/mL (0-450); Procalcitonin 61.15 ng/mL (0-0.5)
[2023-03-30 05:32] LABS: C Reactive Protein 378.1 mg/L (0.0-4.9)
[2023-03-30 05:58] LABS: Slide Review Slide Review Perform
[2023-03-30 07:34] LABS: Glucose Point of Care 123 mg/dL (70-110)
[2023-03-30] MEDS: meropenem 1,000 MG in sodium chloride 0.9% (plus) 50 ML 100 MG IV (08:41)
[2023-03-30] MEDS: amiodarone 200 mg Tablet 400 MG PO (08:42)
[2023-03-30 09:06] LABS: Ferritin 183 ng/mL (30-400); Iron 5 ug/dL (59-158); Total Iron Binding Capacity 166 mcg/dl; Unsaturated Iron Binding 161 ug/dL (112-347)
--- NOTE | 2023-03-30 10:10 | P.PN_ITS ---
Subjective Subjective: more alert today, going in and out of atrial fibrillation. BP stable, receiving 1u PRBC Vitals/I&O/Wt Last Vital Signs Temp 98.9 F 03/30/23 07:00 Pulse 86 03/30/23 09:00 Resp 20 H 03/30/23 09:00 BP 128/73 03/30/23 09:00 Pulse Ox 96 03/30/23 09:00 O2 Del Method Nasal Cannula 03/30/23 09:00 O2 Flow Rate 2 03/30/23 09:00 FiO2 2 03/29/23 07:48 03/29/23 03/30/23 03/30/23 22:59 06:59 14:59 Intake Total 482.776 / 819.103 216.017 / 1035.120 385.250 / 385.250 Output Total 525 / 575 380 / 955 Balance -42.224 / 244.103 -163.983 / 80.120 385.250 / 385.250 Physical Exam Const: COMMON NORMALS: no acute distress Urinary Catheter Management: Conteh: Cath Placed During This Visit: yes Reason for Continuing Indwelling Catheter: Accurate Measurement of Urinary Output in Critically Ill Patients Urinary Catheter Date of Insertion: 03/27/23 Urinary Catheter Time of Insertion: 19:10 Data 03/30/23 04:20 03/30/23 04:20 Other Labs: TSAT 3%, SF 103 CT Abd/Pel: Radiologist's impression: CT no contrast 03/29/23 Adrenal glands: Thickened appearance of the adrenals is unchanged. This is likely related to adenomatous hyperplasia. Kidneys and ureters: Multiple bilateral renal cysts are unchanged. ABG Interpretation 1: 03/28/23 03/29/23 03/30/23 09:25 04:20 04:30 ABG pH 7.23 L 7.28 L 7.37 ABG pCO2 35.6 32.7 L 37.7 ABG pO2 74.1 L 56.4 L 69.9 L ABG HCO3 14.9 L 15.4 L 21.7 L ABG Base Excess -11.7 L -10.4 L -3.2 L Other data: seen via telemedicine with assistance of RN at bedside A&P Assessment and plan (1) MAYTE (acute kidney injury): Plan 1. Acute kidney injury due to sepsis, urine output improved, serum creatinine worse 2. E.coli sepsis s/p repair of perforated sigmoid colon 3. Increased anion gap metabolic acidosis due to lactate and renal impairment. Resolved with sodium bicarbonate infusion. 4. new onset atrial fibrillation 5. Stage 4 CKD, does not know cause. possible polycystic kidney disease, baseline eGFR 15 ml/min 6. Anemia, history of recent transfusion, iron deficient, receiving transfusion pRBC 7. History of diabetes, hypertension, coronary artery disease Recommend: Place tunneled HD catheter for initiation of HD. Continue IVF hydration. Adjust medications for low eGFR. Check vanco level. Avoid nephrotoxins. Discussed in detail with at bedside. She consents to intiation of HD. First treatment 2Hr, 500 ml UF. HD again tomrorow Attestations Medical Necessity Statement*: critically ill in ICU Time Spent in Patient Care: 16 - 35 minutes Coding Level of Care Code Acute Code for [facility] Diagnoses MAYTE (acute kidney injury) N17.9
[2023-03-30 10:20] LABS: Partial Thromboplastin Time 41.6 SECONDS (23.9-36.7)
[2023-03-30 10:57] LABS: Glucose Point of Care 99 mg/dL (70-110)
[2023-03-30 12:41] LABS: Hepatitis B Surface Antigen Non-Reactive (Nonreactive); Hepatitis C Virus Antibody Non-Reactive (Nonreactive)
[2023-03-30 12:55] LABS: Hepatitis B Surface AB < 3.5 (11.5-1000)
[2023-03-30] MEDS: dextrose 5%-sod chloride 0.45% 1,000 ML 30 ML IV (13:09)
--- NOTE | 2023-03-30 13:47 | P.PN_ITS ---
Subjective Subjective: - Patient was seen this morning -Patient's is at bedside -Currently heart rates more controlled, still in A-fib, on amiodarone drip -On heparin drip -His urine output remains lackluster creatinine up to 6.1 -Remains on 2 L, afebrile overnight, normotensive -Patient is much more alert and awake to person, to place, not to time he recognizes at bedside, can follow commands such as squeeze my fingers, wiggling his toes able to smile for me -But does have episodes of confusion, required soft restraints overnight due to episodes of confusion and agitation -Had an extensive discussion with the patient's at bedside about his renal failure, I worry that he is developing fluid overload, anasarca, pulm edema, he is going to need dialysis in my opinion to avoid worsening respiratory failure, and avoid being intubated, after discussing the risk and benefits, she voiced understanding, all questions answered, agreed to proceed with dialysis -I also spoke with Dr. Soriano, agreed for dialysis, -I also spoke with general surgery about patient's CT scan results, 2. ? Small collection of fluid and gas in the deep pelvis measuring 3.9 cm maximum size suspicious for an abscess. There is also a simple appearing fluid collection deep to the ventral midline abdominal wound measuring 3.4 cm favored to be a seroma. -spoke to general surgery, will monitor, consider repeating ct abdomen/pelvis without contrast, -spoke to patient about ct results, she voiced understanding all question answered, discussed drain placement and possible consultion with IR depending on repeat CT results, and clinical progress -We will continue to monitor mentation, -So far blood cultures show E. coli, gram-negative's, gram-positive is on antibiotics -Patient's voiced understanding of all question answered, agreed to proceed, patient also verbalized understanding, but I am not sure he understands the complexity of his clinical condition -Patient went back into A-fib with RVR, in the afternoon, continue amiodarone at 1 Vitals/I&O/Wt Last Vital Signs Temp 97.3 F L 03/30/23 10:39 Pulse 118 H 03/30/23 13:00 Resp 20 H 03/30/23 13:00 BP 132/81 03/30/23 13:00 Pulse Ox 96 03/30/23 13:00 O2 Del Method Nasal Cannula 03/30/23 13:00 O2 Flow Rate 2 03/30/23 13:00 FiO2 2 03/29/23 07:48 03/29/23 03/30/23 03/30/23 22:59 06:59 14:59 Intake Total 482.776 / 819.103 216.017 / 4938.501 9347.250 / 1585.250 Output Total 525 / 575 380 / 955 440 / 440 Balance -42.224 / 244.103 -163.983 / 80.120 1145.250 / 1145.250 Physical Exam Const: COMMON NORMALS: no acute distress ORIENTATION/CONSCIOUSNESS: Yes awake, Yes oriented to person and Yes oriented to place; not oriented to time OTHER: Anasarca Eye: COMMON NORMALS: Equal, round and reactive pupils present PUPIL: Yes Equal, round and reactive pupils present Resp: COMMON NORMALS: normal respiratory effort, No retractions, No use of accessory muscles and clear to auscultation bilaterally AUSCULTATION: clear to auscultation bilaterally Cardio: COMMON NORMALS: S1 normal heart sound present and S2 normal heart sound present RATE: tachycardic RHYTHM: abnormal rhythm irregularly irregular HEART SOUNDS: S1 normal heart sound present and S2 normal heart sound present GI: OTHER: Abdomen soft, distended, good bowel sounds in all quadrants, EFREM drain in place, surgical site clean and dry Extremity: COMMON NORMALS: no pedal edema Neuro: SENSORIUM/ORIENTATION: Yes oriented to person, Yes oriented to place and No oriented to time Psych: COMMON NORMALS: mental status grossly normal Urinary Catheter Management: Conteh: Cath Placed During This Visit: yes Reason for Continuing Indwelling Catheter: Accurate Measurement of Urinary Output in Critically Ill Patients Urinary Catheter Date of Insertion: 03/27/23 Urinary Catheter Time of Insertion: 19:10 Data 03/30/23 04:20 03/30/23 04:20 A&P Assessment and plan (1) Bowel perforation: (2) ASHD (arteriosclerotic heart disease): (3) Diabetes 1.5, managed as type 2: (4) HTN (hypertension): (5) Hyperlipidemia: (6) Septic shock: (7) Acute renal failure: (8) Acute encephalopathy: (9) E coli bacteremia: (10) Metabolic acidosis: (11) Lactic acidosis: (12) CHRISTY (obstructive sleep apnea): (13) Gram-negative bacteremia: (14) Gram-positive bacteremia: (15) Acute respiratory failure with hypoxia: (16) NSTEMI (non-ST elevated myocardial infarction): (17) Systolic CHF: (18) Atrial fibrillation with RVR: Plan Plan Acute encephalopathy, improving -Likely? secondary to sepsis, septic shock, gram-negative bacteremia -Neurochecks -Aspiration precautions Septic shock -Sepsis -Due to gram-negative bacteremia, gram-positive bacteremia -Maintain MAP greater than 65 -Levophed if needed to maintain MAP greater than 65 - PICC line Gram-negative and gram-positive bacteremia -So far E. coli identified -Continue vancomycin -Switch to meropenem -Secondary to bowel perforation A-fib with RVR -Amiodarone drip -Heparin drip, currently on hold on plans on dialysis catheter placement Acute hypoxic respiratory failure -Secondary to fluid overload -Secondary to systolic CHF -Secondary to acute renal failure -Monitor respiratory status closely -Low threshold for intubation NSTEMI -Likely type II, related to sepsis however cannot rule out underlying cardiac etiology -Continue telemetry monitoring Perforated bowel -Status exploratory laparotomy, with repair of colotomy, post abdominal washout -EFREM drain in place -NG tube in place -2. ? Small collection of fluid and gas in the deep pelvis measuring 3.9 cm maximum size suspicious for an abscess. There is also a simple appearing fluid collection deep to the ventral midline abdominal wound measuring 3.4 cm favored to be a seroma. -We will monitor clinical status, will consider repeating's CAT scan of abdomen pelvis with contrast, to better delineate -Patient will likely require IV antibiotics on discharge, will discuss with infectious disease -N.p.o. -General surgery consulted History of CAD -Complaints of chest pain - serial EKGs, serial troponins, telemetry monitoring -cardiac echo ?LV systolic function is mildly reduced with EF of 40 to 45%.? ?Mild global hypokinesis seen. ?Grossly normal valvular structures. ?Mild tricuspid regurgitation ?Compared to prior echocardiogram from 2020, LV systolic function ?has decreased and is mildly reduced now. History of CVA, no focal neurologic deficits Obstructive sleep apnea, continue BiPAP tonight Acute renal failure, with fluid overload, with anasarca, creatinine up to 6.1, lackluster urine output, hold heparin drip, general surgery consulted for dialysis catheter placement hopefully will be dialyzed this afternoon Metabolic acidosis, currently on bicarb drip DO NOT RESUSCITATE, patient's is okay with elective intubation if required Heparin for DVT prophylaxis Protonix GI prophylaxis - Patient was seen this morning -Patient's is at bedside -Currently heart rates more controlled, still in A-fib, on amiodarone drip -On heparin drip -His urine output remains lackluster creatinine up to 6.1 -Remains on 2 L, afebrile overnight, normotensive -Patient is much more alert and awake to person, to place, not to time he recognizes at bedside, can follow commands such as squeeze my fingers, wiggling his toes able to smile for me -But does have episodes of confusion, required soft restraints overnight due to episodes of confusion and agitation -Had an extensive discussion with the patient's at bedside about his renal failure, I worry that he is developing fluid overload, anasarca, pulm edema, he is going to need dialysis in my opinion to avoid worsening respiratory failure, and avoid being intubated, after discussing the risk and benefits, she voiced understanding, all questions answered, agreed to proceed with dialysis -I also spoke with Dr. Soriano, agreed for dialysis, -I also spoke with general surgery about patient's CT scan results, 2. ? Small collection of fluid and gas in the deep pelvis measuring 3.9 cm maximum size suspicious for an abscess. There is also a simple appearing fluid collection deep to the ventral midline abdominal wound measuring 3.4 cm favored to be a seroma. -spoke to general surgery, will monitor, consider repeating ct abdomen/pelvis without contrast, -spoke to patient about ct results, she voiced understanding all question answered, discussed drain placement and possible consultion with IR depending on repeat CT results, and clinical progress -We will continue to monitor mentation, -So far blood cultures show E. coli, gram-negative's, gram-positive is on antibiotics -Patient's voiced understanding of all question answered, agreed to proceed, patient also verbalized understanding, but I am not sure he understands the complexity of his clinical condition -Patient went back into A-fib with RVR, in the afternoon, continue amiodarone at 1 Attestations Medical Necessity Statement*: Patient requires hospitalization, A-fib with RVR, respiratory failure, perforated bowel, gram-negative, bacteremia, gram-positive bacteremia, sepsis, encephalopathy, CAD, end-stage renal disease Coding Level of Care Code Critical Care >/= 30 minutes Critical care time (in minutes): 60 The high probability of a clinically significant, sudden or life threatening deterioration, as referenced in this documentation, required my full and direct attention, intervention and personal management. The critical care time shown is in addition to time spent performing any reported separately billable procedures and includes the following: [x] Data and vital sign review and interpretation [x ] Patient assessment, examination and intervention [x] Medication orders and management [x] Patient/Family updates as able [x] Care Coordination and Documentation. Diagnoses Bowel perforation K63.1 ASHD (arteriosclerotic heart disease) I25.10 Diabetes 1.5, managed as type 2 E13.9 HTN (hypertension) I10 Hyperlipidemia E78.5 Septic shock A41.9; R65.21 Acute renal failure N17.9 Acute encephalopathy G93.40 E coli bacteremia R78.81; B96.20 Metabolic acidosis E87.20 Lactic acidosis E87.20 CHRISTY (obstructive sleep apnea) G47.33 Gram-negative bacteremia R78.81 Gram-positive bacteremia R78.81 Acute respiratory failure with hypoxia J96.01 NSTEMI (non-ST elevated myocardial infarction) I21.4 Systolic CHF I50.20 Atrial fibrillation with RVR I48.91
--- NOTE | 2023-03-30 14:59 | P.PCN_ITS ---
Procedure Note: Procedure: Preoperative diagnosis: Acute renal failure requiring emergent dialysis Postoperative diagnosis: Same Procedure: Placement of Mahurkar catheter in the right femoral vein Surgeon: Dr. Eric Light, DO Anesthesia: Local Description of procedure: The patient's right groin was prepped and draped in a sterile manner. 5 mL of 1% lidocaine was infiltrated at the site of planned entry, an introducer needle was used to access the right femoral vein. Guidewire was passed through the introducer needle and the introducer needle was removed. Serial dilators were passed over the guidewire after the skin incision was extended using 11 blade and Mahurkar catheter was then passed over the glenn dewire and the guidewire was removed. The catheter was sutured to the skin using 2-0 Ethilon suture. Sterile dressings were applied. Coding Level of Care Code Acute Code for [facility]
--- NOTE | 2023-03-30 15:14 | PC.SOCIAL ---
Imm update Imm updated with patient's . Copy of page 2 provided. She verbalized understanding. Copy in chart initialed, dated and timed.
[2023-03-30] MEDS: heparin drip 25,000 UNIT/500 ML PREMIX 28.7 UNIT IV (16:16)
[2023-03-30] MEDS: heparin, porcine 1,000 unit/mL INJ 10 mL 10000 UNIT HE (16:28)
[2023-03-30] MEDS: LORazepam 2 mg/mL INJ 1 mL 1 MG IVP (17:21)
[2023-03-30 18:12] LABS: Glucose Point of Care 104 mg/dL (70-110)
[2023-03-30] MEDS: albumin 25 G/100 ML BAG 60 G IV (18:21)
[2023-03-30] MEDS: OLANZapine 10 mg VIAL 5 MG IM (18:22)
[2023-03-30] MEDS: vancomycin 1,500 MG/300 ML PIGGYBACK 200 MG IV (18:27)
[2023-03-30] MEDS: FUROsemide 10 mg/mL SDV 4mL 40 MG IVP (18:28)
[2023-03-30] MEDS: water for injection-sterile 10 ML (18:38)
--- NOTE | 2023-03-30 19:08 | PC.HD ---
Attempted to dialyze patient via new right femoral catheter but arterial flow inadequate to be able to run in spite of flushing and manipulation. Surgeon declined to come back this evening, says he will be here in the am. Dr Hernandez and Dr Marquis roland.
--- NOTE | 2023-03-30 19:13 | PC.NURSE ---
Confusion/agitation Patient having episodes of confusion/agitation throughout the day. Patient given medications as documented. Patient's , Aliyah, at bedside most of day shift. Dialysis line was placed to right groin by Dr. Light without difficulty. Dialysis catheter would not work for dialysis nurse. Decision by Dr. Light and Dr. Hernandez was made to reattempt in the morning. at bedside and aware of the plan. Patient's was a little upset due to patient telling her to leave and go home and asking for his ex , Gris. Patient's reassured that patient is confused at this time.
[2023-03-30] MEDS: OLANZapine 5 mg ODT 10 MG PO (20:15)
[2023-03-30] MEDS: pantoprazole 40 mg SDV IVP (20:15)
[2023-03-30 22:23] LABS: Partial Thromboplastin Time 68.6 SECONDS (23.9-36.7)
[2023-03-31] VITALS (23 sets, daily range): BP systolic 114–192; BP diastolic 78–123; PULSE 92–135; RESP 18–33; TEMP 37–37.7; O2SAT 93–96
[2023-03-31] MEDS: LORazepam 2 mg/mL INJ 1 mL 1 MG IVP ×3 (02:48→22:41)
[2023-03-31 04:23] LABS: Basophils % 0.2 %; Eosinophils # 0.1 10^3/uL (0.0-0.8); Eosinophils % 0.8 %; Hematocrit 26.3 % (37-53); Lymphocytes # 1.1 10^3/uL (0.8-4.8); Lymphocytes % 6.6 %; Mean Corpuscular HGB Conc 31.9 g/dL (30-55); Mean Corpuscular Volume 90.7 fl (82-101); Mean Platelet Volume 10.2 fL (7.4-10.4); Monocytes # 0.7 10^3/uL (0.2-0.9); Monocytes % 3.9 %; Neutrophils # 14.98 10^3/uL (1.8-7.7); Neutrophils % 88.1 %; Nucleated Red Blood Cells % 0 %; Platelet Count 195 10^3/cmm (157-399); Red Cell Distribution Width 14.8 % (12.1-15.1)
[2023-03-31 04:29] LABS: INR 1.01 (0.8-1.2)
[2023-03-31 04:36] LABS: Lactate (Lactic Acid level) 1.5 mmol/L (0.5-2.2)
[2023-03-31 04:50] LABS: NT Pro B Type Natriuretic Pept 16301 pg/mL (0-450); Procalcitonin 31.98 ng/mL (0-0.5)
[2023-03-31 04:55] LABS: Alanine Aminotransferase < 5 U/L (0-41); Albumin Level 3.2 g/dL (3.5-5.2); Alkaline Phosphatase 81 U/L (40-130); Anion Gap 20.3 (5-19); Aspartate Amino Transferase 11 U/L (0-40); Blood Urea Nitrogen 53 mg/dL (8-23); C Reactive Protein 206.2 mg/L (0.0-4.9); Calcium 8.9 mg/dL (8.5-10.5); Carbon Dioxide 21 mmol/L (22-29); Chloride 100 mmol/L (98-107); Globulin 1.8 g/dL (1.3-4.6); Glucose 111 mg/dL (65-115); Magnesium 1.9 mg/dL (1.7-2.3); Osmolality Calculated 301 mOsm/kg (285-295); Phosphorus 3.8 mg/dL (2.5-4.5); Potassium 3.3 mmol/L (3.5-5.1); Sodium 138 mmol/L (136-145); Total Bilirubin 0.8 mg/dL (0.15-1.2)
[2023-03-31 05:00] LABS: Creatine Phosphokinase 58 U/L (39-308)
[2023-03-31 05:19] LABS: Slide Review Slide Review Perform
--- NOTE | 2023-03-31 06:38 | PC.NURSE ---
0515 -- 3mL air removed from right radial TR band 0530 -- 3mL air removed from right radial TR band 0545-- 3mL air removed from right radial TR band 0600 -- 3mL air removed from right radial TR band 0615 -- 3mL air removed from right radial TR band 0630 -- 3mL air removed from right radial TR band. NO bleeding or hematoma noted. TR band removed, bandaid placed.
[2023-03-31 07:51] LABS: Glucose Point of Care 111 mg/dL (70-110)
--- NOTE | 2023-03-31 09:02 | P.PN_ITS ---
Subjective Subjective: HD catheter was nonfunctional last evening. awaiting surgeon to reposition he is awake, remains confused, denies pain or shortness of breath Medications: Medication Review Details: Received furosemide 40 mg IV x 1 dose yesterday, urine output increased Vitals/I&O/Wt Last Vital Signs Temp 99.6 F 03/31/23 04:00 Pulse 125 H 03/31/23 07:37 Resp 21 H 03/31/23 07:37 BP 152/90 03/31/23 04:00 Pulse Ox 94 03/31/23 07:37 O2 Del Method Nasal Cannula 03/31/23 07:37 O2 Flow Rate 3 03/31/23 07:37 FiO2 2 03/29/23 07:48 03/30/23 03/31/23 03/31/23 22:59 06:59 14:59 Intake Total 1859.306 / 3794.556 220.467 / 4015.023 Output Total 710 / 1150 1860 / 3010 Balance 1149.306 / 2644.556 -1639.533 / 1005.023 urine output 2725 ml/24h Weight last 48 hrs Weight 108.2 kg Physical Exam Extremity: NARRATIVE EXTREMITY EXAM: trace edema Urinary Catheter Management: Conteh: Cath Placed During This Visit: yes Reason for Continuing Indwelling Catheter: Accurate Measurement of Urinary O utput in Critically Ill Patients Urinary Catheter Date of Insertion: 03/27/23 Urinary Catheter Time of Insertion: 19:10 Data 03/31/23 03:59 03/31/23 03:59 Other Labs: lactate 1.5, alumin 3.8, LFTs normal, Ca 8.9, Mg 1.9, phos 3.8, CK 58 Micro: Microbiology 03/27/23 18:03 Blood Culture - Preliminary Blood Escherichia coli Other data: seen via telemedicine with assitance of RN at bedside A&P Assessment and plan (1) MAYTE (acute kidney injury): Plan 1. Acute kidney injury due to sepsis, urine output improved 2. E.coli (pansensitive) sepsis s/p repair of perforated sigmoid colon 3. Increased anion gap metabolic acidosis due to lactate and renal impairment. Resolved with sodium bicarbonate infusion. 4. new onset atrial fibrillation 5. 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 possible polycystic kidney disease, baseline eGFR 15 ml/min 6. Anemia, history of recent transfusion, iron deficient, received transfusion pRBC 7. History of diabetes, hypertension, coronary artery disease 8. Hypokalemia, replace IV (NPO, NGT) Recommend: Check vanco level. Avoid nephrotoxins. Discussed in detail with at bedside. If able to get functioning catheter today, First treatment 2Hr, 3K, 500 ml UF. Plan for PC placement tomorrow. Attestations Medical Necessity Statement*: critically ill in ICU Time Spent in Patient Care: 16 - 35 minutes Coding Level of Care Code Acute Code for g Fwd Diagnoses MAYTE (acute kidney injury) N17.9
[2023-03-31] MEDS: meropenem 1,000 MG in sodium chloride 0.9% (plus) 50 ML 100 MG IV (09:22)
--- NOTE | 2023-03-31 09:31 | P.PN_ITS ---
Subjective Subjective: Tachycardic with heart rate 125. This morning appears to be sinus tachycardia on telemetry. Blood pressure ranging 150 to 160 mmHg. Remains off pressors. Attempted dialysis via temporary HD yesterday, however was not successful. Plan for placement of temporary HD line today with change to permacath tomorrow. Tmax 99.6 Fahrenheit overnight. Leukocytosis of 17,000. Interim development of oral thrush on exam. States he is tired, wishes to go home. Identification of gram-positive cocci from 03/27 blood culture still in progress. Hemoglobin today at 8.4. Medications: Reviewed: Yes Medication Review Details: Received furosemide 40 mg IV x 1 dose yesterday, urine output increased Vitals/I&O/Wt Last Vital Signs Temp 99.6 F 03/31/23 04:00 Pulse 125 H 03/31/23 07:37 Resp 21 H 03/31/23 07:37 BP 152/90 03/31/23 04:00 Pulse Ox 94 03/31/23 07:37 O2 Del Method Nasal Cannula 03/31/23 07:37 O2 Flow Rate 3 03/31/23 07:37 FiO2 2 03/29/23 07:48 03/30/23 03/31/23 03/31/23 22:59 06:59 14:59 Intake Total 1859.306 / 3794.556 220.467 / 4015.023 Output Total 710 / 1150 1860 / 3010 Balance 1149.306 / 2644.556 -1639.533 / 1005.023 Weight last 48 hrs Weight 108.2 kg Physical Exam Narrative: General: Overall ill-appearing, lethargic, though wakes up easily and participates in conversation. Currently alert and oriented x3. HEENT: PERRLA, pupils bilaterally equal and reactive, pallors not present Chest: Normal vesicular breath sounds, no added sounds, equal good air entry bilaterally CVS: S1-S2 regular, no murmurs, no tachycardia, no gallops, no rubs Abdomen: Soft, nondistended, EFREM drain in place with minimal output, midline celina over lower abdomen, no signs of gross cellulitis or surrounding infection. Urinary Catheter Management: Conteh: Cath Placed During This Visit: yes Reason for Continuing Indwelling Catheter: Accurate Measurement of Urinary O utput in Critically Ill Patients Urinary Catheter Date of Insertion: 03/27/23 Urinary Catheter Time of Insertion: 19:10 Data 03/31/23 03:59 03/31/23 03:59 Micro: Microbiology 03/27/23 18:03 Blood Culture - Preliminary Blood Escherichia coli A&P Assessment and plan (1) Bowel perforation: (2) ASHD (arteriosclerotic heart disease): (3) Diabetes 1.5, managed as type 2: (4) HTN (hypertension): (5) Hyperlipidemia: (6) Septic shock: (7) Acute renal failure: (8) Acute encephalopathy: (9) E coli bacteremia: (10) CHRISTY (obstructive sleep apnea): (11) Gram-positive bacteremia: (12) Acute respiratory failure with hypoxia: (13) Systolic CHF: (14) Atrial fibrillation with RVR: Plan # Septic shock This was present on admission. Patient was undergoing colonoscopy when he was found to have a perforated colon. Per , patient had been complaining of abdominal pain for approximately 1 month prior to the procedure, however had been eating and drinking and having stool output as normal. He had a few streaky bloody bowel movements prior to the procedure. Septic shock related to perforated bowel and gram-negative septicemia. Blood culture from 03/27 thus far identified with E. coli, vance susceptible. Gram-positive cocci preliminarily appears to be an anaerobic organism, awaiting further identification from micro lab. Currently on meropenem and vancomycin which we will continue pending finalization of cultures. Will narrow accordingly. CT of the abdomen and pelvis performed on March 29, 2023 showed intraperitoneal air which is an expected finding given recent history but also a small collection of fluid and gas in the deep pelvis measuring 3.9 cm suspicious for an abscess. To discuss with IR after dialysis is initiated if this may be amenable to drainage. Add fluconazole 100mg iv q24h for 5days for oral thrush Review of past records showed patient has a history of Acinetobacter and, gamma strep bacteremia in 2019, unclear source at the time, patient had left AMA on that admission and per does not recall receiving any antibiotics thereafter. He does not have any cardiac hardware, history of left knee replacement and right shoulder replacement. Does not currently appear to be of concern, however if blood cultures remain persistently elevated may need further evaluation. #Perforated bowel Status exploratory laparotomy, with repair of colotomy, post abdominal washout Strict n.p.o. for bowel rest NGT in place Managed per general surgery #Intra-abdominal abscess, as above #Intermittent A-fib with RVR -Amiodarone drip to continue at 0.5 maintenance until can overlap with home dose of p.o. amiodarone - Blood pressure is better controlled today, start metoprolol 2.5 mg IV every 4 hours scheduled as heart rate ranging between 1 25-1 30. At home patient is on propanolol and bisoprolol as part of his home medication regimen. Beta-priyanka withdrawal may be contributing currently to the tachycardia. -Heparin drip, currently on hold on plans on dialysis catheter placement -With his chronic anemia and hemoglobin dropped down to 5.0 in the recent past with suspected recent GI source of bleeding, do not believe patient will be a candidate for outpatient DOACs. Patient does not appear to have a known past history of atrial fibrillation, likely that current episode may be triggered by septic shock. -Plavix is on hold as patient is currently strict n.p.o. with NGT in place. # Acute hypoxic respiratory failure Multifactorial,-Secondary to fluid overload from MAYTE on CKD and systolic CHF # NSTEMI, less likely, more likely type II MS from demand supply mismatch related to sepsis. However cannot rule out ischemic etiology completely given that ejection fraction currently has dropped to 40 to 45% with mild global hypokinesia. Last stress test in May 2022 had shown a small sized fixed perfusion abnormality of mild severity in the basal to inferolateral lujan. He has been evaluated by cardiology as outpatient and medical management was opted in view of his CKD. Will defer intervention for now as patient unlikely to tolerate dual antiplatelet therapy if needed after cath with his severe anemia # Obstructive sleep apnea, BiPAP at night time # Acute encephalopathy from sepsis, improving # Acute on chronic renal failure, with fluid overload Planned to start HD after placement of new line today # hypokalemia: replete with iv KCL 20 meq, starting TPN additionally DO NOT RESUSCITATE, patient's is okay with elective intubation if required Nutrition: Start TPN today Heparin for DVT prophylaxis Protonix for GI prophylaxis All updates discussed with at bedside Attestations Medical Necessity Statement*: per admitting note Critical Care Time: The high probability of a clinically significant, sudden or life threatening deterioration of the patient's [cardiovascular, respiratory, renal, ID, GI ] system(s) required my full and direct attention, intervention and personal management. The critical care time is as shown. This time is in addition to time spent performing any reported procedures but includes the following: [x] Data and vital sign review and interpretation [x] Patient assessment, examination and intervention [x] Documentation [x] Medication orders and management Critical Care Time (min): 60 Coding Level of Care Code Acute Code for Chg Fwd High MDM includes number and complexity of problems actively addressed during encounter, amount and/or complexity of data reviewed/ordered and described risk of complication, morbidity or mortality of management as documented Diagnoses Bowel perforation K63.1 ASHD (arteriosclerotic heart disease) I25.10 Diabetes 1.5, managed as type 2 E13.9 HTN (hypertension) I10 Hyperlipidemia E78.5 Septic shock A41.9; R65.21 Acute renal failure N17.9 Acute encephalopathy G93.40 E coli bacteremia R78.81; B96.20 CHRISTY (obstructive sleep apnea) G47.33 Gram-positive bacteremia R78.81 Acute respiratory failure with hypoxia J96.01 Systolic CHF I50.20 Atrial fibrillation with RVR I48.91
[2023-03-31] MEDS: metoprolol tartrate 1 mg/1 mL SDV 5 mL 2.5 MG IVP ×4 (10:12→21:53)
[2023-03-31] MEDS: lidocaine 1% 5 ML in potassium chloride premix 100 ML 52.5 ML IV (10:18)
[2023-03-31] MEDS: fluconazole premix 100 MG in empty flexible container 1 EACH 50 MG IV (10:20)
[2023-03-31] MEDS: AA-Dex 5%-20% w/Lytes 1,000 ML 20 ML IV (11:56)
[2023-03-31 12:11] LABS: Glucose Point of Care 115 mg/dL (70-110)
--- NOTE | 2023-03-31 15:00 | PM.PN ---
Subjective Subjective: Patient seen and examined. He reports no abdominal pain. No nausea or vomiting. Hemodialysis nurse reported high pressures during attempted hemodialysis and therefore it was aborted yesterday Vitals/I&O/Wt Last Vital Signs Temp 99.6 F 03/31/23 04:00 Pulse 115 H 03/31/23 13:00 Resp 22 H 03/31/23 13:00 BP 192/109 03/31/23 13:00 Pulse Ox 95 03/31/23 13:00 O2 Del Method Nasal Cannula 03/31/23 07:37 O2 Flow Rate 3 03/31/23 07:37 FiO2 2 03/29/23 07:48 03/31/23 03/31/23 03/31/23 06:59 14:59 22:59 Intake Total 220.467 / 4015.023 498.59 / 498.59 Output Total 1860 / 3010 Balance -1639.533 / 1005.023 498.59 / 498.59 Weight last 48 hrs Weight 238 lb 8.642 oz Physical Exam Narrative: General: No acute distress, awake alert noted x3 Abdomen: Soft, mildly distended, appropriately tender to palpation, no guarding rebound or masses Incisions intact without erythema or exudate Drain serosanguineous Catheter in place without erythema or exudate Urinary Catheter Management: Conteh: Cath Placed During This Visit: yes Reason for Continuing Indwelling Catheter: Accurate Measurement of Urinary Output in Critically Ill Patients Urinary Catheter Date of Insertion: 03/27/23 Urinary Catheter Time of Insertion: 19:10 Data 03/31/23 03:59 03/31/23 03:59 Micro: Microbiology 03/31/23 12:00 Blood Culture - Preliminary Blood SPECIMEN COLLECTED 03/31/23 12:07 Blood Culture - Preliminary Blood SPECIMEN COLLECTED 03/27/23 18:03 Blood Culture - Preliminary Blood Escherichia coli A&P Assessment and plan (1) Bowel perforation: (2) Acute renal failure: Plan Status post exploratory laparotomy with primary repair of colotomy which occurred during a colonoscopy at an outside facility Antibiotics Right groin temporary hemodialysis catheter was manipulated minimally and good venous return was noted ICU management-appreciate hospitalist input Await return of bowel function 2 OR tomorrow for permacath placement The risks and benefits of the procedure, including but not limited to, bleeding, infection, infection requiring Mediport removal antibiotic therapy and repeat surgery, damage to surrounding structures, scar, numbness, pain, pneumothorax requiring thoracostomy tube, were explained to the patient. He/She is understanding of the risks and wishes to proceed. Attestations Medical Necessity Statement*: Patient requires multiple more nights in the hospital for intensive care and recovery following exploratory laparotomy for colon perforation Coding Level of Care Code Acute Code for Chg Fwd Diagnoses Bowel perforation K63.1 Acute renal failure N17.9
[2023-03-31 17:15] LABS: Glucose Point of Care 155 mg/dL (70-110)
[2023-03-31] MEDS: insulin lispro 100 unit/1 mL SUBCUT (17:16)
[2023-03-31] MEDS: HYDROmorphone 1 mg/mL INJ 1 mL IVP (18:39)
[2023-03-31 19:36] LABS: Adenovirus Not Detected (NOT DETECT); Chlamydia Pneumoniae Not Detected (NOT DETECT); Coronavirus 229E,HKU1,NL63,OC4 Not Detected (NOT DETECT); Human Metapneumovirus Not Detected (NOT DETECT); Human Rhinovirus/Enterovirus Not Detected (NOT DETECT); Influenza A Not Detected (NOT DETECT); Influenza A H1 Not Detected (NOT DETECT); Influenza A H1-2009 Not Detected (NOT DETECT); Influenza A H3 Not Detected (NOT DETECT); Influenza B Not Detected (NOT DETECT); Mycoplasma Pneumoniae Not Detected (NOT DETECT); Parainfluenza Virus Type 1 Not Detected (NOT DETECT); Parainfluenza Virus Type 2 Not Detected (NOT DETECT); Parainfluenza Virus Type 3 Not Detected (NOT DETECT); Parainfluenza Virus Type 4 Not Detected (NOT DETECT); Respiratory Syncytial Virus A Not Detected (NOT DETECT); Respiratory Syncytial Virus B Not Detected (NOT DETECT); SARS-COV-2 Not Detected (NOT DETECT)
[2023-03-31] MEDS: pantoprazole 40 mg SDV IVP (20:20)
[2023-03-31] MEDS: OLANZapine 5 mg ODT 10 MG PO (20:21)
[2023-03-31 21:48] LABS: Glucose Point of Care 119 mg/dL (70-110)
[2023-03-31 21:48] LABS: Glucose Point of Care 158 mg/dL (70-110)
[2023-04-01] VITALS (14 sets, daily range): BP systolic 133–178; BP diastolic 73–114; PULSE 68–100; RESP 18–29; TEMP 37.2–37.5; O2SAT 85–98
[2023-04-01] MEDS: metoprolol tartrate 1 mg/1 mL SDV 5 mL 2.5 MG IVP ×4 (01:42→20:57)
[2023-04-01] MEDS: hyDRALAzine 20 mg/mL INJ 1 mL IVP (02:11)
--- NOTE | 2023-04-01 02:13 | PC.NURSE ---
Blood pressure remains elevated with current blood pressure 179/108. Notifed Dr. Nix and updated on patient hospital course. Order given for hydralazine 20mg IV x 1 dose now.
[2023-04-01] MEDS: dexmedetomidine 400 MCG in sodium chloride 0.9% (100 ml) 100 ML IV (03:17)
--- NOTE | 2023-04-01 03:26 | PC.NURSE ---
Increase in anxiety and appears to be slightly short of breath. Patient denies having difficulty breathing or feeling short of breath. Lungs remain clear with slight expiratory wheeze to upper lung mendiola bilat. Restarted precedex for comfort.
[2023-04-01 04:17] LABS: Basophils % 0.1 %; Eosinophils # 0.2 10^3/uL (0.0-0.8); Eosinophils % 1.6 %; Hematocrit 31.7 % (37-53); Lymphocytes # 0.8 10^3/uL (0.8-4.8); Lymphocytes % 5.8 %; Mean Corpuscular HGB Conc 31.9 g/dL (30-55); Mean Corpuscular Hemoglobin 29.4 pg (27-33); Mean Corpuscular Volume 92.2 fl (82-101); Mean Platelet Volume 10.2 fL (7.4-10.4); Monocytes # 1.2 10^3/uL (0.2-0.9); Monocytes % 8.7 %; Neutrophils # 11.07 10^3/uL (1.8-7.7); Neutrophils % 82.8 %; Nucleated Red Blood Cells % 0 %; Platelet Count 201 10^3/cmm (157-399); Red Blood Count 3.44 10^6/uL (3.85-5.65); Red Cell Distribution Width 14.7 % (12.1-15.1); White Blood Count 13.38 10^3/uL (3.29-11.43)
[2023-04-01 04:42] LABS: Alanine Aminotransferase < 5 U/L (0-41); Albumin Level 3.3 g/dL (3.5-5.2); Alkaline Phosphatase 107 U/L (40-130); Anion Gap 17.4 (5-19); Aspartate Amino Transferase 12 U/L (0-40); Blood Urea Nitrogen 60 mg/dL (8-23); Calcium 9.5 mg/dL (8.5-10.5); Carbon Dioxide 23 mmol/L (22-29); Chloride 103 mmol/L (98-107); Globulin 2.8 g/dL (1.3-4.6); Glucose 180 mg/dL (65-115); Osmolality Calculated 311 mOsm/kg (285-295); Phosphorus 2.5 mg/dL (2.5-4.5); Potassium 3.4 mmol/L (3.5-5.1); Sodium 140 mmol/L (136-145); Total Bilirubin 0.6 mg/dL (0.15-1.2); Total Protein 6.1 g/dL (6.6-8.7)
[2023-04-01] MEDS: AA-Dex 5%-20% w/Lytes 1,000 ML 83 ML IV ×2 (07:21→18:28)
--- NOTE | 2023-04-01 07:48 | PC.HD ---
Late entry: Dr Light told [facility] yesterday that he would be in at 06:00 to manipulate/replace dialysis catheter so dialysis machine brought to ICU at 06:00 to start treatment as soon as Dr Light got dialysis cath functioning. He had not arrived by 07:00 so left to run another patient. Dr Cho aware. Checked back when other treatment finished but Dr Light had not yet arrived. Checked back again early afternoon and ntfd Dr Cho that Dr Light had not yet been in to address non-functioning catheter. Per Dr Cho's instructions, when he had not arrived by 14:00 ICU was notified that we would plan to dialyze patient after tunnelled cath is inserted tomorrow.
--- NOTE | 2023-04-01 09:00 | P.PN_ITS ---
Subjective Subjective: Temporary HD line was manipulated yesterday however still unable to complete dialysis through it. Plan for tunneled HD catheter placement today followed by hemodialysis initiation. Patient was agitated overnight which necessitated starting Precedex infusion which is currently ongoing. Blood pressure and heart rate are better controlled today. Patient is confused and disoriented at this present time, he is able to follow commands to move his hands and feet, however does not participate in co nversation unlike yesterday. Medications: Reviewed: Yes Vitals/I&O/Wt Last Vital Signs Temp 99 F 04/01/23 16:00 Pulse 83 04/01/23 16:00 Resp 18 04/01/23 16:00 BP 134/76 04/01/23 04:00 Pulse Ox 98 04/01/23 09:19 O2 Del Method Room Air 04/01/23 16:00 O2 Flow Rate 3 04/01/23 09:19 FiO2 2 03/29/23 07:48 04/01/23 04/01/23 04/01/23 06:59 14:59 22:59 Intake Total 137.052 / 1958.609 601.583 / 601.583 0 / 601.583 Output Total 1905 / 4505 1610 / 1610 Balance -1767.948 / -2546.391 601.583 / 601.583 -1610 / -1008.417 Weight last 48 hrs Weight 103.963 kg Weight 108.2 kg Physical Exam Narrative: General: Overall ill-appearing, lethargic, disoriented HEENT: PERRLA, pupils bilaterally equal and reactive, pallors not present Chest: Crackles bilaterally CVS: S1-S2 regular, no murmurs, no tachycardia, no gallops, no rubs Abdomen: Soft, nondistended, EFREM drain in place with minimal output, midline celina over lower abdomen, no signs of gross cellulitis or surrounding infection. Anasarca present Urinary Catheter Management: Conteh: Cath Placed During This Visit: yes Reason for Continuing Indwelling Catheter: Accurate Measurement of Urinary Output in Critically Ill Patients Urinary Catheter Date of Insertion: 03/27/23 Urinary Catheter Time of Insertion: 19:10 Data 04/01/23 03:50 04/01/23 03:50 Micro: Microbiology 03/31/23 12:00 Blood Culture - Preliminary Blood NEGATIVE TO DATE 03/31/23 12:07 Blood Culture - Preliminary Blood NEGATIVE TO DATE A&P Assessment and plan (1) Bowel perforation: (2) ASHD (arteriosclerotic heart disease): (3) Diabetes 1.5, managed as type 2: (4) HTN (hypertension): (5) Hyperlipidemia: (6) Septic shock: (7) Acute renal failure: (8) Acute encephalopathy: (9) E coli bacteremia: (10) CHRISTY (obstructive sleep apnea): (11) Gram-positive bacteremia: (12) Acute respiratory failure with hypoxia: (13) Systolic CHF: (14) Atrial fibrillation with RVR: Plan # Septic shock This was present on admission. Patient was undergoing colonoscopy when he was found to have a perforated colon. Per , patient had been complaining of abdominal pain for approximately 1 month prior to the procedure, however had been eating and drinking and having stool output as normal. He had a few streaky bloody bowel movements prior to the procedure. Septic shock related to perforated bowel and gram-negative septicemia. Blood culture from 03/27 thus far identified with E. coli, vance susceptible. Gram-positive cocci preliminarily appears to be an anaerobic organism, awaiting further identification from micro lab. Currently on meropenem and vancomycin which we will continue pending finalization of cultures. Will narrow accordingly. CT of the abdomen and pelvis performed on March 29, 2023 showed intraperitoneal air which is an expected finding given recent history but also a small collection of fluid and gas in the deep pelvis measuring 3.9 cm suspicious for an abscess. To discuss with IR after dialysis is initiated if this may be amenable to drainage. Add fluconazole 100mg iv q24h for 5days for oral thrush Review of past records showed patient has a history of Acinetobacter and, gamma strep bacteremia in 2019, unclear source at the time, patient had left AMA on that admission and per does not recall receiving any antibiotics thereafter. He does not have any cardiac hardware, history of left knee replacement and right shoulder replacement. Does not currently appear to be of concern, however if blood cultures remain persistently elevated may need further evaluation. #Perforated bowel Status exploratory laparotomy, with repair of colotomy, post abdominal washout Strict n.p.o. for bowel rest NGT in place Managed per general surgery #Intra-abdominal abscess, as above #Intermittent A-fib with RVR -Amiodarone drip to continue at 0.5 maintenance until can overlap with home dose of p.o. amiodarone - Blood pressure is better controlled today, start metoprolol 2.5 mg IV every 4 hours scheduled as heart rate ranging between 1 25-1 30. At home patient is on propanolol and bisoprolol as part of his home medication regimen. Beta-priyanka withdrawal may be contributing currently to the tachycardia. -Heparin drip, currently on hold on plans on dialysis catheter placement -With his chronic anemia and hemoglobin dropped down to 5.0 in the recent past with suspected recent GI source of bleeding, do not believe patient will be a candidate for outpatient DOACs. Patient does not appear to have a known past hi story of atrial fibrillation, likely that current episode may be triggered by septic shock. -Plavix is on hold as patient is currently strict n.p.o. with NGT in place. # Acute hypoxic respiratory failure Multifactorial,-Secondary to fluid overload from MAYTE on CKD and systolic CHF # NSTEMI, less likely, more likely type II NH from demand supply mismatch related to sepsis. However cannot rule out ischemic etiology completely given that ejection fraction currently has dropped to 40 to 45% with mild global hypokinesia. Last stress test in May 2022 had shown a small sized fixed perfusion abnormality of mild severity in the basal to inferolateral lujan. He has been evaluated by cardiology as outpatient and medical management was opted in view of his CKD. Will defer intervention for now as patient unlikely to tolerate dual antiplatelet therapy if needed after cath with his severe anemia # Obstructive sleep apnea, BiPAP at night time # Acute encephalopathy from sepsis, improving # Acute on chronic renal failure, with fluid overload Planned to start HD after placement of new line today # hypokalemia: replete with iv KCL 20 meq, starting TPN additionally DO NOT RESUSCITATE, patient's is okay with elective intubation if required Nutrition: Start TPN today Heparin for DVT prophylaxis Protonix for GI prophylaxis All updates discussed with at bedside Plan for today: Tunneled HD catheter placement today followed by hemodialysis. Heart rate and blood pressure better controlled today. 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
--- NOTE | 2023-04-01 09:48 | ANES.PAUD2 ---
Pre-Anesthetic Update Pre-Anesthetic Assessment: Date of Surgery/Procedure: 04/01/23 Proposed Procedure: Operation Date: 03/27/23 18:30 Proposed Procedures p Exploratory Laparotomy(Not Applicable) - Eric Light, DO Operation Date: 04/01/23 11:45 Proposed Procedures p Dialysis Catheter Insertion(Right) - Eric Light, DO Any changes to Pre-Anesthetic Assessment?: Yes Changes from Pre-Anesthetic Assessment: on amiodarone for a fib/ rv;, off pressors for septic shock Last Intake: > 8hrs Labs Last 48hrs: Short CBC 03/31/23 04/01/23 Range/Units 03:59 03:50 WBC 17.00 H 13.38 H (3.29-11.43) 10^ 3/uL Hgb 8.40 L 10.10 L (11.27-16.99) g/ dL Hct 26.3 L 31.7 L (37-53) % MCV 90.7 92.2 (82-101) fl Plt Count 195 201 (157-399) 10^3/c mm Neut % (Auto) 88.1 82.8 % Neut # (Auto) 14.98 H 11.07 H (1.8-7.7) 10^3/u L BMP 03/31/23 04/01/23 03:59 03:50 Sodium 138 140 Potassium 3.3 L 3.4 L Chloride 100 103 Carbon Dioxide 21 L 23 BUN 53 H 60 H Creatinine 5.5 H 5.1 H Glucose 111 180 H Calcium 8.9 9.5 Cardiac Enzymes 03/31/23 Range/Units 03:59 Creatine Kinase 58 (39-308) U/L NT-Pro-B Natriuret Pep 56962 H (0-450) pg/mL Liver Function 03/31/23 04/01/23 Range/Units 03:59 03:50 Total Bilirubin 0.8 0.6 (0.15-1.2) mg/dL AST 11 12 (0-40) U/L ALT < 5 < 5 (0-41) U/L Alkaline Phosphata se 81 107 (40-130) U/L Albumin 3.2 L 3.3 L (3.5-5.2) g/dL Blood Bank 03/27/23 17:55 Blood Type O Positive Rho(D) Type Positive Antibody Screen Negative COVID Results 03/31/23 17:38 Coronavirus 229E ( PCR) Not detected SARS-CoV-2 (PCR) Not detected Coags 03/30/23 03/30/23 03/31/23 09:34 21:51 03:59 PT INR APTT 41.6 H D 68.6 H D C-Reactive Protein 206.2 H 03/31/23 03:59 PT 13.60 INR 1.01 APTT C-Reactive Protein Vitals: Temperature 99.0 F 04/01/23 07:59 Temperature Source Axillary 04/01/23 04:00 Pulse Rate 83 04/01/23 09:19 Pulse Rhythm Irregular 03/31/23 08:00 Pulse Strength 3+ Normal 04/01/23 07:59 Respiratory Rate 18 04/01/23 09:19 Respiratory Effort Spontaneous, Non- Labored 04/01/23 07:59 Respiratory Depth Normal 04/01/23 07:59 Respiratory Patter n Normal 03/30/23 10:10 Blood Pressure 134/76 04/01/23 04:00 Blood Pressure Deneen n 95 04/01/23 04:00 Blood Pressure Pos ition Left Lateral 04/01/23 04:00 Pulse Oximetry 98 04/01/23 09:19 Oxygen Delivery Me thod Nasal Cannula 04/01/23 09:19 Oxygen Flow Rate 3 04/01/23 09:19 Fraction of Inspir ed Oxygen 2 03/29/23 07:48 Sepsis Recent Feve r Within 48 Hours No 03/27/23 17:36 Sepsis New/Unexpla ined Change in Men marlo Status No 03/27/23 17:36 Exam: Pre-Anes Outpt Exam: alert, clear to auscultation bilaterally and regular rate & rhythm (a fib) Cardiac Studies: Echocardiogram 03/28/23 Echocardiogram Ultrasound 07/04/20 Sestamibi Stress Test (Cardiology) 06/26/22
[2023-04-01] MEDS: meropenem 1,000 MG in sodium chloride 0.9% (plus) 50 ML 100 MG IV (10:44)
--- NOTE | 2023-04-01 11:10 | PM.PN ---
Subjective Subjective: UOP improved Medications: Reviewed: Yes Vitals/I&O/Wt Last Vital Signs Temp 99.0 F 04/01/23 07:59 Pulse 83 04/01/23 09:19 Resp 18 04/01/23 09:19 BP 134/76 04/01/23 04:00 Pulse Ox 98 04/01/23 09:19 O2 Del Method Nasal Cannula 04/01/23 09:19 O2 Flow Rate 3 04/01/23 09:19 FiO2 2 03/29/23 07:48 03/31/23 04/01/23 04/01/23 22:59 06:59 14:59 Intake Total 1322.967 / 1821.557 137.052 / 1958.609 601.583 / 601.583 Output Total 2600 / 2600 1905 / 4505 Balance -1277.033 / -778.443 -1767.948 / -2546.391 601.583 / 601.583 Weight last 48 hrs Weight 103.963 kg Weight 108.2 kg Physical Exam Narrative: awake , alert HEENT PEERLA + edema Extremity: NARRATIVE EXTREMITY EXAM: trace edema Urinary Catheter Management: Conteh: Cath Placed During This Visit: yes Reason for Continuing Indwelling Catheter: Accurate Measurement of Urinary Output in Critically Ill Patients Urinary Catheter Date of Insertion: 03/27/23 Urinary Catheter Time of Insertion: 19:10 Data 04/01/23 03:50 04/01/23 03:50 Micro: Microbiology 03/31/23 12:00 Blood Culture - Preliminary Blood SPECIMEN COLLECTED 03/31/23 12:07 Blood Culture - Preliminary Blood SPECIMEN COLLECTED A&P Assessment and plan (1) MAYTE (acute kidney injury): Plan 1. Acute kidney injury due to sepsis, urine output improved 2. E.coli (pansensitive) sepsis s/p repair of perforated sigmoid colon 3. Increased anion gap metabolic acidosis due to lactate and renal impairment. Resolved with sodium bicarbonate infusion. 4. new onset atrial fibrillation 5. 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 possible polycystic kidney disease, baseline eGFR 15 ml/min 6. Anemia, history of recent transfusion, iron deficient, received transfusion pRBC 7. History of diabetes, hypertension, coronary artery disease 8. Hypokalemia, replace IV (NPO, NGT)and hD Recommend: Check vanco level. Avoid nephrotoxins. Discussed in detail with at bedside. Plan for PC placement today, and HD after. Attestations Medical Necessity Statement*: per medicine team Coding Level of Care Code Acute Code for Chg Fwd Diagnoses MAYTE (acute kidney injury) N17.9
--- NOTE | 2023-04-01 11:16 | PM.PN ---
Vitals/I&O/Wt Last Vital Signs Temp 99.0 F 04/01/23 07:59 Pulse 83 04/01/23 09:19 Resp 18 04/01/23 09:19 BP 134/76 04/01/23 04:00 Pulse Ox 98 04/01/23 09:19 O2 Del Method Nasal Cannula 04/01/23 09:19 O2 Flow Rate 3 04/01/23 09:19 FiO2 2 03/29/23 07:48 03/31/23 04/01/23 04/01/23 22:59 06:59 14:59 Intake Total 1322.967 / 1821.557 137.052 / 1958.609 601.583 / 601.583 Output Total 2600 / 2600 1905 / 4505 Balance -1277.033 / -778.443 -1767.948 / -2546.391 601.583 / 601.583 Weight last 48 hrs Weight 229 lb 3.2 oz Weight 238 lb 8.642 oz Physical Exam Urinary Catheter Management: Conteh: Cath Placed During This Visit: yes Reason for Continuing Indwelling Catheter: Accurate Measurement of Urinary Output in Critically Ill Patients Urinary Catheter Date of Insertion: 03/27/23 Urinary Catheter Time of Insertion: 19:10 Data 04/01/23 03:50 04/01/23 03:50 Micro: Microbiology 03/31/23 12:00 Blood Culture - Preliminary Blood SPECIMEN COLLECTED 03/31/23 12:07 Blood Culture - Preliminary Blood SPECIMEN COLLECTED A&P Assessment and plan (1) Bowel perforation: (2) Acute renal failure: Plan Status post exploratory laparotomy with primary repair of colotomy which occurred during a colonoscopy at an outside facility Permacath placement The risks and benefits of the procedure, including but not limited to, bleeding, infection, infection requiring Mediport removal antibiotic therapy and repeat surgery, damage to surrounding structures, scar, numbness, pain, pneumothorax requiring thoracostomy tube, were explained to the patient. He/She is understanding of the risks and wishes to proceed. Attestations Medical Necessity Statement*: Patient requires multiple more nights in the hospital for intensive care and recovery following exploratory laparotomy for colon perforation Coding Level of Care Code Acute Code for [facility] Fwd Diagnoses Bowel perforation K63.1 Acute renal failure N17.9
[2023-04-01 11:17] LABS: Glucose Point of Care 256 mg/dL (70-110)
--- NOTE | 2023-04-01 11:34 | SC_ITS ---
WS: [id number] C-arm fluoroscopy for dialysis catheter insertion, 04/01/2023 Clinical Data: surgery Comparison: Portable chest, 03/29/2023 Findings: Dr. Light inserted a right dialysis catheter which ends in the distal superior vena cava Impression: Insertion of right dialysis catheter.
[2023-04-01] MEDS: lidocaine-epi 2% 20 mL INJ INJECTION (12:13)
[2023-04-01] MEDS: heparin, porcine 1,000 unit/mL INJ 10 mL 10000 UNIT IRRIGATION ×2 (12:14→17:27)
--- NOTE | 2023-04-01 12:23 | XR_ITS ---
WS: [id number] PORTABLE CHEST HISTORY: Postop Permacath Placement COMPARISON: 03/29/2023 Right-sided dialysis catheter is been placed. The tips overlie the RIGHT heart. Catheter appears appr opriately position. There is also a PICC line on the RIGHT. Nasogastric tube extends below the GE tamica ction. Lung volumes are decreased with areas of atelectasis at the lung bases. No pleural effusion or pneumo thorax. Cardiac size: Moderately enlarged cardiac silhouette. Mediastinum/Aorta: Mild atherosclerosis aorta. Severe degenerative changes at the LEFT glenohumeral joint. IMPRESSION: 1. Satisfactory positioning right-sided dialysis catheter. 2. Right-sided PICC line and nasogastric tube appear appropriate.
--- NOTE | 2023-04-01 12:25 | PM.OP ---
Operative Report Date of procedure: April 01, 2023 Pre-op diagnosis: End-stage renal disease Post-op diagnosis: same Procedure done: Permacath placement Implants: Permacath Surgeon: Eric Light DO Anesthesia: MAC Estimated blood loss (mL): 5 Complications: None apparent Brief History: This is a very pleasant 77-year-old gentleman who is currently in the hospital following exploratory laparotomy and primary repair of colotomy from a colonoscopy complication at another facility. He had stage IV chronic kidney disease but has progressed to stage V nephrology requested permacath placement. The risk and benefits were explained to the . She is understanding the risks and wishes to proceed Procedure: Patient was taken to the operating room and placed supine on the operating room table. All bony prominences were padded. He was given IV sedation and monitored throughout the case by the anesthesia personnel. SCDs were placed and turned on. The arms were tucked to the side. Patient received Vancomycin preoperatively IV. The bilateral chest wall was prepped and draped in usual sterile fashion using chlorhexidine base prep. Sterile drapes were applied. We did procedure pause prior to beginning. An 18 gauge needle was placed in the right internal jugular vein under ultrasound guidance. Dark, nonpulsatile blood was aspirated. A guidewire was placed through the needle centrally toward the atrial/vena caval junction. Fluoroscopy visualized good placement. The needle was removed and the guidewire was clipped to the drape with a hemostat. Further local anesthetic was infiltrated in the soft tissues of the right chest wall and a #15 blade was used to make a vertical skin incision. A #15 blade was used to make a small skin danette around the guidewire insertion area. The permacath tubing was tunneled through the subcutaneous tissues up to the needle insertion location. Serial dilators were used to serially dilate over the guidewire . A dilator with a peel-away sheath was placed over the guidewire and placed centrally. The guidewire was removed as well as the dilator and the permacath was fed into the split sheath. The split sheath was removed. Both ports were aspirated to reveal dark blood and were flushed with saline only as the patient has a heparin allergy. final fluoroscopy visualization showed no kink in the catheter and the tip of the permacath tubing near the atrial/vena caval junction. Both skin incisions were thoroughly irrigated and suctioned dry. Meticulous hemostasis noted. The internal jugular access site was closed with 4-0 Vicryl in a subcuticular fashion. The skin overlying the permacath was closed in a similar manner. The permacath was then sutured into place using 2-0 nylon in a simple interrupted fashion. skin glue was applied as a topical dressing. This was allowed to dry. Patient was awakened from anesthesia and transferred via her cart to the recovery room in stable condition. All needle, sponge, and instrument counts were correct per the operating personnel x2 counts.
--- NOTE | 2023-04-01 12:46 | ANE.PACU2 ---
Inpatient post-anesthesia follow up: Airway intact: Yes Vital signs: Temperature 99.0 F Pulse Rate 83 Respiratory Rate 18 Blood Pressure 134/76 Pulse Oximetry 98 Oxygen Delivery Me thod Nasal Cannula Oxygen Flow Rate 3 Fraction of Inspir ed Oxygen 2 Hydration adequate: Yes Nausea and vomiting: No Pain level: 1 Mental status: Baseline
--- NOTE | 2023-04-01 15:38 | PC.SOCIAL ---
IMM update pg 2 of IMM updated and reviewed w/ patients . Copy provided and Copy in chart dated, and initialed.
[2023-04-01] MEDS: insulin lispro 100 unit/1 mL SUBCUT (17:10)
[2023-04-01 17:14] LABS: Glucose Point of Care 249 mg/dL (70-110)
[2023-04-01] MEDS: dexmedetomidine 400 MCG in sodium chloride 0.9% (100 ml) 100 ML 5.33 MCG IV (18:18)
[2023-04-01 18:38] LABS: Vancomycin Trough 13.8 ug/mL (10-15)
[2023-04-01] MEDS: vancomycin 1,500 MG/300 ML PIGGYBACK 200 MG IV (18:55)
[2023-04-01] MEDS: pantoprazole 40 mg SDV IVP (20:56)
[2023-04-02] VITALS (28 sets, daily range): BP systolic 117–175; BP diastolic 67–110; PULSE 72–116; RESP 17–41; TEMP 36.9–37.1; O2SAT 92–99
[2023-04-02] MEDS: metoprolol tartrate 1 mg/1 mL SDV 5 mL 2.5 MG IVP ×5 (00:59→14:55)
[2023-04-02 05:06] LABS: Basophils % 0.2 %; Eosinophils # 0.3 10^3/uL (0.0-0.8); Eosinophils % 2.7 %; Hematocrit 31.3 % (37-53); Lymphocytes % 10.8 %; Mean Corpuscular HGB Conc 31.9 g/dL (30-55); Mean Corpuscular Hemoglobin 29.8 pg (27-33); Mean Corpuscular Volume 93.2 fl (82-101); Mean Platelet Volume 10.7 fL (7.4-10.4); Monocytes # 1.3 10^3/uL (0.2-0.9); Monocytes % 13.6 %; Neutrophils # 6.71 10^3/uL (1.8-7.7); Neutrophils % 70.6 %; Nucleated Red Blood Cells % 0 %; Platelet Count 172 10^3/cmm (157-399); Red Blood Count 3.36 10^6/uL (3.85-5.65); Red Cell Distribution Width 14.7 % (12.1-15.1); White Blood Count 9.51 10^3/uL (3.29-11.43)
[2023-04-02 05:35] LABS: Alanine Aminotransferase 6 U/L (0-41); Albumin Level 3.2 g/dL (3.5-5.2); Alkaline Phosphatase 102 U/L (40-130); Aspartate Amino Transferase 12 U/L (0-40); Blood Urea Nitrogen 51 mg/dL (8-23); Calcium 9.2 mg/dL (8.5-10.5); Carbon Dioxide 23 mmol/L (22-29); Chloride 101 mmol/L (98-107); Globulin 2.7 g/dL (1.3-4.6); Glucose 302 mg/dL (65-115); Osmolality Calculated 311 mOsm/kg (285-295); Phosphorus 2.7 mg/dL (2.5-4.5); Sodium 138 mmol/L (136-145); Total Bilirubin 0.5 mg/dL (0.15-1.2); Total Protein 5.9 g/dL (6.6-8.7)
[2023-04-02 05:36] LABS: Creatinine Clr Calc Pharmacy 20.5828
[2023-04-02 05:38] LABS: Anion Gap 17.8 (5-19); Potassium 3.8 mmol/L (3.5-5.1)
[2023-04-02] MEDS: AA-Dex 5%-20% w/Lytes 1,000 ML 83 ML IV (06:11)
[2023-04-02] MEDS: insulin lispro 100 unit/1 mL SUBCUT ×3 (08:31→17:36)
[2023-04-02] MEDS: meropenem 1,000 MG in sodium chloride 0.9% (plus) 50 ML 100 MG IV (08:32)
[2023-04-02] MEDS: heparin, porcine 1,000 unit/mL INJ 10 mL 1000 UNIT IV (09:27)
--- NOTE | 2023-04-02 09:39 | PM.PN ---
Subjective Subjective: s/p HD yesterday Medications: Reviewed: Yes Vitals/I&O/Wt Last Vital Signs Temp 98.5 F 04/02/23 07:36 Pulse 75 04/02/23 07:36 Resp 28 H 04/02/23 04:00 BP 156/92 04/02/23 04:00 Pulse Ox 92 04/02/23 01:00 O2 Del Method Room Air 04/01/23 20:06 O2 Flow Rate 3 04/01/23 09:19 FiO2 2 03/29/23 07:48 04/01/23 04/02/23 04/02/23 22:59 06:59 14:59 Intake Total 1174.841 / 1776.424 972.483 / 2748.907 350 / 350 Output Total 2610 / 2610 1820 / 4430 Balance -1435.159 / -833.576 -847.517 / -1681.093 350 / 350 Weight last 48 hrs Weight 102.965 kg Weight 105.7 kg Weight 103.963 kg Physical Exam Narrative: awake , alert HEENT PEERLA + edema Extremity: NARRATIVE EXTREMITY EXAM: trace edema Urinary Catheter Management: Conteh: Cath Placed During This Visit: yes Reason for Continuing Indwelling Catheter: Accurate Measurement of Urinary Output in Critically Ill Patients Urinary Catheter Date of Insertion: 03/27/23 Urinary Catheter Time of Insertion: 19:10 Data 04/02/23 04:29 04/02/23 04:29 Micro: Microbiology 03/27/23 18:03 Blood Culture - Final Blood Escherichia coli Bacteroides fragilis 03/31/23 12:00 Blood Culture - Preliminary Blood NEGATIVE TO DATE 03/31/23 12:07 Blood Culture - Preliminary Blood NEGATIVE TO DATE A&P Assessment and plan (1) MAYTE (acute kidney injury): Plan 1. Acute kidney injury due to sepsis, urine output improved 2. E.coli (pansensitive) sepsis s/p repair of perforated sigmoid colon 3. Increased anion gap metabolic acidosis due to lactate and renal impairment. Resolved with sodium bicarbonate infusion. 4. new onset atrial fibrillation 5. 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 possible polycystic kidney disease, baseline eGFR 15 ml/min 6. Anemia, history of recent transfusion, iron deficient, received transfusion pRBC 7. History of diabetes, hypertension, coronary artery disease 8. Hypokalemia, replace IV (NPO, NGT)and hD Recommend: Check vanco level. Avoid nephrotoxins. Discussed in detail with at bedside. s/p PC placement on 04/01. , HD started [facility] work to arrange for out pt HD Attestations Medical Necessity Statement*: PER MEDICINE SERVICE Coding Level of Care Code Acute Code for Chg Fwd Diagnoses MAYTE (acute kidney injury) N17.9
[2023-04-02 11:13] LABS: Glucose Point of Care 218 mg/dL (70-110)
[2023-04-02] MEDS: fluconazole premix 100 MG in empty flexible container 1 EACH 50 MG IV (11:52)
[2023-04-02 12:48] LABS: Vancomycin Random 18.3 ug/mL (20.0-40.0)
[2023-04-02] MEDS: piperacillin-tazobactam 3.375 GM in sodium chloride 0.9% (plus) 50 ML IV (14:54)
--- NOTE | 2023-04-02 15:16 | PM.PN ---
Subjective Subjective: Patient underwent placement of permacath yesterday and since then has had 2 dialysis sessions. He is much more alert awake and oriented today. States that he is hungry, wants to eat. Denies any dyspnea or chest pain or abdominal pain. He is off supplemental O2 today, remains on room air saturating 98%. Leukocytosis is resolved. He is afebrile. Anaerobe from blood culture has now been identified as Bacteroides fragilis. Medications: Reviewed: Yes Vitals/I&O/Wt Last Vital Signs Temp 98.8 F 04/02/23 12:00 Pulse 91 04/02/23 12:00 Resp 41 H 04/02/23 12:00 BP 148/67 04/02/23 12:00 Pulse Ox 98 04/02/23 12:00 O2 Del Method Room Air 04/02/23 09:49 04/02/23 04/02/23 04/02/23 06:59 14:59 22:59 Intake Total 972.483 / 2748.907 400 / 400 Output Total 1820 / 4430 Balance -847.517 / -1681.093 380 / 380 Weight last 48 hrs Weight 102.965 kg Weight 105.7 kg Weight 103.963 kg Physical Exam Narrative: General: Alert awake oriented, appears to be more alert compared to previous exams HEENT: PERRLA, pupils bilaterally equal and reactive, pallors not present Chest: Clear to auscultation bilaterally CVS: S1-S2 regular, no murmurs, no tachycardia, no gallops, no rubs Abdomen: Soft, nondistended, EFREM drain in place with minimal output, midline celina over lower abdomen, no signs of gross cellulitis or surrounding infection. Anasarca present but improving Urinary Catheter Management: Conteh: Cath Placed During This Visit: yes Reason for Continuing Indwelling Catheter: Accurate Measurement of Urinary Output in Critically Ill Patients Urinary Catheter Date of Insertion: 03/27/23 Urinary Catheter Time of Insertion: 19:10 Data 04/02/23 04:29 04/02/23 04:29 Micro: Microbiology 03/27/23 18:03 Blood Culture - Final Blood Escherichia coli Bacteroides fragilis 03/31/23 12:00 Blood Culture - Preliminary Blood NEGATIVE TO DATE 03/31/23 12:07 Blood Culture - Preliminary Blood NEGATIVE TO DATE A&P Assessment and plan (1) Bowel perforation: (2) ASHD (arteriosclerotic heart disease): (3) Diabetes 1.5, managed as type 2: (4) HTN (hypertension): (5) Hyperlipidemia: (6) Septic shock: (7) Acute renal failure: (8) Acute encephalopathy: (9) E coli bacteremia: (10) CHRISTY (obstructive sleep apnea): (11) Gram-positive bacteremia: (12) Acute respiratory failure with hypoxia: (13) Systolic CHF: (14) Atrial fibrillation with RVR: Plan # Septic shock This was present on admission. Related to discovery of a perforated colon during colonoscopy. CT imaging during admission showed deep pelvic abscess measuring 3.9 cm. Follow-up CT to assess for evolution planned for tomorrow. Septic shock related to perforated bowel and gram-negative, anaerobic septicemia. Blood culture from 03/27 reported with E. coli and Bacteroides fragilis Follow-up blood cultures from March 31, 2023 thus far negative to date. Currently on meropenem ; discontinue vancomycin ; change meropenem to piperacillin/tazobactam. which we will continue pending finalization of cultures. Will narrow accordingly. On fluconazole 100mg iv q24h for 5days for oral thrush #Perforated bowel Status exploratory laparotomy, with repair of colotomy, post abdominal washout NGT in place, okay to use for meds Managed per general surgery #Intra-abdominal abscess, as above Follow-up CT tomorrow #Intermittent A-fib with RVR -Amiodarone drip to to be weaned off today overlapping with amiodarone 400 mg twice daily -Add metoprolol 25 mg p.o. twice daily and change standing IV metoprolol to as needed At home patient is on propanolol and bisoprolol as part of his home medication regimen. Heart rate is currently well controlled Resume heparin drip if okay from a surgical perspective -With his chronic anemia and hemoglobin dropped down to 5.0 in the recent past with suspected recent GI source of bleeding, do not believe patient will be a candidate for outpatient DOACs. Patient does not appear to have a known past history of atrial fibrillation, likely that current episode may be triggered by septic shock. To discuss benefit versus risk of long-term anticoagulation with the patient once he is more awake and alert -Plavix is on hold currently as he may need further procedures if his abscess is worsening. # Acute hypoxic respiratory failure Multifactorial,-Secondary to fluid overload from MAYTE on CKD and systolic CHF -Started hemodialysis with improvement in respiratory status # NSTEMI, less likely, more likely type II SD from demand supply mismatch related to sepsis. However cannot rule out ischemic etiology completely given that ejection fraction currently has dropped to 40 to 45% with mild global hypokinesia. Last stress test in May 2022 had shown a small sized fixed perfusion abnormality of mild severity in the basal to inferolateral lujan. He has been evaluated by cardiology as outpatient and medical management was opted in view of his CKD. Will defer intervention for now as patient unlikely to tolerate dual antiplatelet therapy if needed after cath with his severe anemia. Denies any current chest pain. # Obstructive sleep apnea, continue BiPAP at night time # Acute encephalopathy from sepsis and uremia, improving # Acute on chronic renal failure, with fluid overload Started hemodialysis on April 01, 2023 # hypokalemia: Resolved DO NOT RESUSCITATE, patient's is okay with elective intubation if required Nutrition: Plan to wean off TPN today and start NG feeds Heparin for DVT prophylaxis Protonix for GI prophylaxis Attestations Medical Necessity Statement*: Per primary Coding Level of Care Code Acute Code for Chg Fwd Diagnoses Bowel perforation K63.1 ASHD (arteriosclerotic heart disease) I25.10 Diabetes 1.5, managed as type 2 E13.9 HTN (hypertension) I10 Hyperlipidemia E78.5 Septic shock A41.9; R65.21 Acute renal failure N17.9 Acute encephalopathy G93.40 E coli bacteremia R78.81; B96.20 CHRISTY (obstructive sleep apnea) G47.33 Gram-positive bacteremia R78.81 Acute respiratory failure with hypoxia J96.01 Systolic CHF I50.20 Atrial fibrillation with RVR I48.91
--- NOTE | 2023-04-02 15:45 | PM.PN ---
Subjective Subjective: Patient talking and complete sentences today. An obvious improvement. Belly pain well controlled Vitals/I&O/Wt Last Vital Signs Temp 98.8 F 04/02/23 12:00 Pulse 91 04/02/23 12:00 Resp 41 H 04/02/23 12:00 BP 148/67 04/02/23 12:00 Pulse Ox 98 04/02/23 12:00 O2 Del Method Room Air 04/02/23 09:49 O2 Flow Rate 3 04/01/23 09:19 FiO2 2 03/29/23 07:48 04/02/23 04/02/23 04/02/23 06:59 14:59 22:59 Intake Total 972.483 / 2748.907 400 / 400 Output Total 1820 / 4430 Balance -847.517 / -1681.093 380 / 380 Weight last 48 hrs Weight 227 lb Weight 233 lb 0.458 oz Weight 229 lb 3.2 oz Physical Exam Narrative: Abdomen: Soft, nondistended, minimally tender to palpation Incision intact without erythema or exudate EFREM serous sanguinous Urinary Catheter Management: Conteh: Cath Placed During This Visit: yes Reason for Continuing Indwelling Catheter: Accurate Measurement of Urinary Output in Critically Ill Patients Urinary Catheter Date of Insertion: 03/27/23 Urinary Catheter Time of Insertion: 19:10 Data 04/02/23 04:29 04/02/23 04:29 Micro: Microbiology 03/27/23 18:03 Blood Culture - Final Blood Escherichia coli Bacteroides fragilis 03/31/23 12:00 Blood Culture - Preliminary Blood NEGATIVE TO DATE 03/31/23 12:07 Blood Culture - Preliminary Blood NEGATIVE TO DATE A&P Assessment and plan (1) Bowel perforation: (2) Acute renal failure: Plan Status post exploratory laparotomy with primary repair of colotomy which occurred during a colonoscopy at an outside facility Status post permacath placement Let TPN run out Start tube feeds per orders Okay for restarting heparin Medical management per hospitalist Attestations Medical Necessity Statement*: Patient quires least 1 more night in the hospital for ICU management following colon perforation Coding Level of Care Code Acute Code for Chg Fwd Diagnoses Bowel perforation K63.1 Acute renal failure N17.9
[2023-04-02] MEDS: amiodarone 200 mg Tablet 400 MG PO (16:09)
[2023-04-02] MEDS: dexmedetomidine 400 MCG in sodium chloride 0.9% (100 ml) 100 ML 5.33 MCG IV (16:10)
[2023-04-02 17:27] LABS: Glucose Point of Care 334 mg/dL (70-110)
--- NOTE | 2023-04-02 18:42 | PC.NUTR ---
MD consult received for TF recommendations. Initiate Glucerna 1.5 at 30ml/hr, increasing 10ml/hr q8hrs until goal rate 65ml/hr reached. FWF 150ml q4hrs or per MD. Goal TF provides 1950kcal, 107g protein, and 1066ml TF fluids, 900ml FWF, total 1966ml fluids; 100% est needs. Increased protein rt HD.
[2023-04-02 21:32] LABS: Glucose Point of Care 163 mg/dL (70-110)
[2023-04-02] MEDS: OLANZapine 5 mg ODT 10 MG PO (22:05)
[2023-04-02] MEDS: metoprolol tartrate 25 mg Tablet PO (22:05)
[2023-04-02] MEDS: pantoprazole 40 mg SDV IVP (22:06)
[2023-04-03] VITALS (26 sets, daily range): BP systolic 89–165; BP diastolic 51–130; PULSE 67–96; RESP 14–33; TEMP 36.5–37.5; O2SAT 93–99
--- NOTE | 2023-04-03 00:40 | PC.NURSE ---
Upon shift arrival, patient is very alert, pleasant and oriented. Once shift begins to progress throughtout the night, patient starts to become more agitated and is very disoriented. Patient begins to mumble and talk about in his sleep. When cleaning patients backside, it is noted that patient has redness right about hips on the sides. The areas are warm to touch and somewhat swollen. This nurse has been oberserving it for any changes and watching due to the extrensive surguries patient had recently undergone. Patient is now watching TV with call light within reach.
[2023-04-03] MEDS: piperacillin-tazobactam 3.375 GM in sodium chloride 0.9% (plus) 50 ML IV ×2 (01:55→14:31)
[2023-04-03 05:09] LABS: Basophils % 0.2 %; Eosinophils # 0.5 10^3/uL (0.0-0.8); Eosinophils % 3.8 %; Hematocrit 33.2 % (37-53); Lymphocytes # 1.7 10^3/uL (0.8-4.8); Lymphocytes % 12.7 %; Mean Corpuscular HGB Conc 31.3 g/dL (30-55); Mean Corpuscular Hemoglobin 28.6 pg (27-33); Mean Corpuscular Volume 91.2 fl (82-101); Mean Platelet Volume 10.8 fL (7.4-10.4); Monocytes # 1.4 10^3/uL (0.2-0.9); Neutrophils # 9.04 10^3/uL (1.8-7.7); Neutrophils % 69.2 %; Nucleated Red Blood Cells % 0 %; Platelet Count 200 10^3/cmm (157-399); Red Blood Count 3.64 10^6/uL (3.85-5.65); Red Cell Distribution Width 14.6 % (12.1-15.1); White Blood Count 13.05 10^3/uL (3.29-11.43)
[2023-04-03 05:28] LABS: Alanine Aminotransferase 28 U/L (0-41); Albumin Level 3.2 g/dL (3.5-5.2); Alkaline Phosphatase 118 U/L (40-130); Anion Gap 17.8 (5-19); Aspartate Amino Transferase 45 U/L (0-40); Blood Urea Nitrogen 47 mg/dL (8-23); Calcium 9.6 mg/dL (8.5-10.5); Carbon Dioxide 26 mmol/L (22-29); Chloride 98 mmol/L (98-107); Globulin 2.9 g/dL (1.3-4.6); Glucose 181 mg/dL (65-115); Magnesium 1.9 mg/dL (1.7-2.3); Osmolality Calculated 303 mOsm/kg (285-295); Potassium 3.8 mmol/L (3.5-5.1); Sodium 138 mmol/L (136-145); Total Bilirubin 0.6 mg/dL (0.15-1.2); Total Protein 6.1 g/dL (6.6-8.7)
[2023-04-03 05:37] LABS: Slide Review Slide Review Perform
[2023-04-03 08:05] LABS: Glucose Point of Care 301 mg/dL (70-110)
[2023-04-03] MEDS: amiodarone 200 mg Tablet 400 MG PO ×2 (08:33→17:54)
[2023-04-03] MEDS: metoprolol tartrate 25 mg Tablet PO ×2 (08:33→20:10)
[2023-04-03 08:41] LABS: Glucose Point of Care 222 mg/dL (70-110)
[2023-04-03] MEDS: insulin lispro 100 unit/1 mL SUBCUT ×3 (08:47→17:54)
--- NOTE | 2023-04-03 09:51 | PM.PN ---
Subjective Subjective: confused s/p HD yesterday Medications: Reviewed: Yes Vitals/I&O/Wt Last Vital Signs Temp 98.8 F 04/02/23 17:17 Pulse 90 04/03/23 09:29 Resp 18 04/03/23 09:29 BP 145/92 04/03/23 05:00 Pulse Ox 93 04/03/23 09:29 O2 Del Method Room Air 04/03/23 09:29 O2 Flow Rate 3 04/01/23 09:19 FiO2 2 03/29/23 07:48 04/02/23 04/03/23 04/03/23 22:59 06:59 14:59 Intake Total 2100 / 2604 1052 / 3656 Output Total 4100 / 4120 1002 / 5122 Balance -2000 / -1516 50 / -1466 Weight last 48 hrs Weight 101.605 kg Weight 102.7 kg Weight 102.7 kg Weight 102.965 kg Weight 105.7 kg Physical Exam Narrative: awake , alert HEENT PEERLA + edema Extremity: NARRATIVE EXTREMITY EXAM: trace edema Urinary Catheter Management: Conteh: Cath Placed During This Visit: yes Reason for Continuing Indwelling Catheter: Accurate Measurement of Urinary Output in Critically Ill Patients Urinary Catheter Date of Insertion: 03/27/23 Urinary Catheter Time of Insertion: 19:10 Data 04/03/23 03:30 04/03/23 03:30 A&P Assessment and plan (1) MAYTE (acute kidney injury): Plan 1. Acute kidney injury due to sepsis, 2. E.coli (pansensitive) sepsis s/p repair of perforated sigmoid colon 3. Increased anion gap metabolic acidosis due to lactate and renal impairment. Resolved with sodium bicarbonate infusion. 4. new onset atrial fibrillation 5. 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 possible polycystic kidney disease, baseline eGFR 15 ml/min 6. Anemia, history of recent transfusion, iron deficient, received transfusion pRBC 7. History of diabetes, hypertension, coronary artery disease 8. Hypokalemia, replace IV (NPO, NGT)and hD Recommend: Avoid nephrotoxins. Discussed in detail with at bedside. s/p PC placement on 04/01. , HD started - s/p 2 sessions [employer] [facility] to arrange for out pt HD , can do twice /week HD Attestations Medical Necessity Statement*: per medicine team Coding Level of Care Code Acute Code for Chg Fwd Diagnoses MAYTE (acute kidney injury) N17.9
--- NOTE | 2023-04-03 10:16 | CT_ITS ---
WS: [id number] CT ABDOMEN PELVIS TECHNIQUE: Contrast-enhanced CT of the abdomen and pelvis with coronal and sagittal reformatted image s. CLINICAL INFORMATION: follow up intra-abdominal abscess COMPARISON: CT 03/29/2023 DLP: 1062.[address] scans at [facility] use at least one of these dose optimization techniques: automated e xposure control; mA and/or kV adjustment per patient size (includes targeted exams where dose is matc hed to clinical indication); or iterative reconstruction. FINDINGS: Small bilateral pleural effusions improved compared to previous. Bibasilar atelectasis. Small pericar dial effusion. Diffuse fatty infiltration of the liver. Fluid distended gallbladder. Normal splenic e nhancement. Enteric enteric tube with tip in the stomach. Adrenal glands are normal. Normal portal ve in and splenic vein. Normal pancreatic parenchymal enhancement. Normal caliber abdominal aorta. Lissa c and SMA are patent. Bilateral renal cortical atrophy. Bilateral renal cysts. No hydronephrosis. Conteh catheter. Midline abdominal incision with underlying subcutaneous postoperative seroma measurin g 4.9 x 3.8 cm. Surgical drain in the abdomen and pelvis. Small amount of free fluid in the pelvis in terposed between the bladder and rectum stable compared to previous with a small amount of nondepende nt air. This measures approximately 3.8 x 2.2 cm. Normal sigmoid colon. No other significant changes. IMPRESSION: 1. Improved bilateral pleural effusions and bibasal atelectasis. 2. Small pericardial effusion. 3. Postoperative abdominal changes with seroma deep to the incision in the subcutaneous soft tissues described above. 4. Previously described fluid collection in the deep pelvis between the rectum and bladder appears u nchanged measuring 3.8 x 2.2 cm and may represent small amount of postoperative fluid versus abscess.
[2023-04-03] MEDS: iohexol 350 mg/mL 500 mL Btl (per mL) IV (11:08)
[2023-04-03] MEDS: morphine 4 mg/mL SDV 1 mL 2 MG IVP (11:57)
[2023-04-03] MEDS: fluconazole premix 100 MG in empty flexible container 1 EACH 50 MG IV (12:08)
[2023-04-03] MEDS: heparin 5,000 unit/mL INJ 1 mL 5000 UNIT SUBCUT (12:08)
[2023-04-03] MEDS: dexmedetomidine 400 MCG in sodium chloride 0.9% (100 ml) 100 ML 5.33 MCG IV (12:09)
[2023-04-03 12:29] LABS: Glucose Point of Care 202 mg/dL (70-110)
--- NOTE | 2023-04-03 13:07 | PM.PN ---
Subjective Subjective: Patient seen and examined. Clinically he continues to improve. He says it feels like he has to have a bowel movement. Vitals/I&O/Wt Last Vital Signs Temp 99.5 F 04/03/23 07:30 Pulse 78 04/03/23 10:00 Resp 14 04/03/23 11:57 BP 163/81 04/03/23 11:09 Pulse Ox 96 04/03/23 11:57 O2 Del Method Room Air 04/03/23 10:22 O2 Flow Rate 3 04/01/23 09:19 FiO2 2 03/29/23 07:48 04/02/23 04/03/23 04/03/23 22:59 06:59 14:59 Intake Total 2100 / 2604 1052 / 3656 158.886 / 158.886 Output Total 4100 / 4120 1002 / 5122 Balance -2000 / -1516 50 / -1466 158.886 / 158.886 Weight last 48 hrs Weight 224 lb Weight 226 lb 6.636 oz Weight 226 lb 6.636 oz Weight 227 lb Weight 233 lb 0.458 oz Physical Exam Narrative: Abdomen: Soft, nondistended, minimally tender to palpation Incision intact without erythema or exudate EFREM serous sanguinous Urinary Catheter Management: Conteh: Cath Placed During This Visit: yes Reason for Continuing Indwelling Catheter: Accurate Measurement of Urinary Output in Critically Ill Patients Urinary Catheter Date of Insertion: 03/27/23 Urinary Catheter Time of Insertion: 19:10 Data 04/03/23 03:30 04/03/23 03:30 A&P Assessment and plan (1) Bowel perforation: (2) Acute renal failure: Plan Status post exploratory laparotomy with primary repair of colotomy which occurred during a colonoscopy at an outside facility Status post permacath placement Continue tube feeds. Plan to take out NG tube and do a swallow study once he has a bowel movement. Repeat CT today showed unchanged fluid and air collection in the pelvis between the bladder and the rectum indicative of possible abscess. I spoke with the radiologist and they do not believe it safe to access at this point. We will continue with IV antibiotics. Medical management per hospitalist-input appreciated Attestations Medical Necessity Statement*: Patient quires least 1 more night in the hospital for ICU management following colon perforation Coding Level of Care Code Acute Code for Chg Fwd Diagnoses Bowel perforation K63.1 Acute renal failure N17.9
--- NOTE | 2023-04-03 13:12 | PC.SOCIAL ---
IMM Update pg 2 of IMM updated and reviewed w/ patient. Copy provided and copy in chart dated, and initialed.
--- NOTE | 2023-04-03 16:06 | P.PN_ITS ---
Subjective Subjective: Last HD yesterday. Patient was started on tube feeding yesterday. He had a bowel movement today. States that he has had abdominal pain after his bowel movements. CT of the abdomen and pelvis was repeated today which shows an overall stable pelvic abscess. Blood pressure 160/130 this evening. Heart rate continues to be controlled on oral medication. 96 at its maximum. Tmax 99.5. Medications: Reviewed: Yes Medication Review Details: Received furosemide 40 mg IV x 1 dose yesterday, urine output increased Vitals/I&O/Wt Last Vital Signs Temp 98.8 F 04/03/23 13:00 Pulse 96 04/03/23 13:00 Resp 22 H 04/03/23 13:00 BP 160/130 04/03/23 13:00 Pulse Ox 96 04/03/23 13:00 O2 Del Method Room Air 04/03/23 13:00 O2 Flow Rate 3 04/01/23 09:19 FiO2 2 03/29/23 07:48 04/03/23 04/03/23 04/03/23 06:59 14:59 22:59 Intake Total 1052 / 3656 209.306 / 209.306 Output Total 1002 / 5122 590 / 590 Balance 50 / -1466 209.306 / 209.306 -590 / -380.694 Weight last 48 hrs Weight 101.605 kg Weight 102.7 kg Weight 102.7 kg Weight 102.965 kg Physical Exam Narrative: General: No acute distress, AO x3 HEENT: PERRLA, pupils bilaterally equal and reactive, pallors not present Chest: Normal vesicular breath sounds, no added sounds, equal good air entry bilaterally CVS: S1-S2 regular, no murmurs, no tachycardia, no gallops, no rubs Abdomen: Soft, nontender, no organomegaly, bowel sounds present Neuro: No focal deficits, no facial deformity, AO x3, power 5/5 in all limbs Urinary Catheter Management: Conteh: Cath Placed During This Visit: yes Reason for Continuing Indwelling Catheter: Accurate Measurement of Urinary Output in Critically Ill Patients Urinary Catheter Date of Insertion: 03/27/23 Urinary Catheter Time of Insertion: 19:10 Data 04/03/23 03:30 04/03/23 03:30 Other data: CT abdomen and pelvis April 03, 2023 IMPRESSION: 1.? Improved bilateral pleural effusions and bibasal atelectasis. 2.? Small pericardial effusion. 3.? Postoperative abdominal changes with seroma deep to the incision in the subcutaneous soft tissues described above. 4.? Previously described fluid collection in the deep pelvis between the rectum and bladder appears unchanged measuring 3.8 x 2.2 cm and may represent small amount of postoperative fluid versus abscess. A&P Assessment and plan (1) Bowel perforation: (2) ASHD (arteriosclerotic heart disease): (3) Diabetes 1.5, managed as type 2: (4) HTN (hypertension): (5) Hyperlipidemia: (6) Septic shock: (7) Acute renal failure: (8) Acute encephalopathy: (9) E coli bacteremia: (10) CHRISTY (obstructive sleep apnea): (11) Gram-positive bacteremia: (12) Acute respiratory failure with hypoxia: (13) Systolic CHF: (14) Atrial fibrillation with RVR: Plan # Septic shock This was present on admission. Now resolved Related to discovery of a perforated colon during colonoscopy. CT imagingupon admission showed deep pelvic abscess measuring 3.9 cm. Follow-up CT today with overall stable size of abscess. Additional seroma underlying incision site Septic shock related to perforated bowel and gram-negative, anaerobic septicemia. Blood culture from 03/27 reported with E. coli and Bacteroides fragilis Follow-up blood cultures from March 31, 2023 thus far negative to date. Currently on meropenem ----> piperacillin/tazobactam. Plan on additional 2 weeks of IV antibiotics, repeat CT in 7-10 days. On fluconazole 100mg iv q24h for 5days for oral thrush #Perforated bowel Status exploratory laparotomy, with repair of colotomy, post abdominal washout NGT in place, okay to use for meds Managed per general surgery #Intra-abdominal abscess, as above Stable on serial follow up, not amenable to IR drainage manage conservatively with ongoing abx anticipate another 2 weeks course, final to be dependent on clinical and radiological progress #Intermittent A-fib with RVR -Amiodarone at 400mg BID -increase metoprolol to 50mg BID from 25 mg p.o. twice daily given high blood pressure ,room for further HR control At home patient is on propanolol and bisoprolol as part of his home medication regimen. Heart rate is currently well controlled Patient has been in sinus rhythm for over the last 48 hours. I suspect that transient atrial fibrillation was related to sepsis -With his chronic anemia and hemoglobin dropped down to 5.0 in the recent past with suspected recent GI source of bleeding, do not believe patient will be a candidate for outpatient DOACs. D/c heparin drip, he has not been receiving this medication sinec HD catheter placement. # Acute hypoxic respiratory failure Multifactorial,-Secondary to fluid overload from MAYTE on CKD and systolic CHF -Started hemodialysis with improvement in respiratory status -Pleural effusions have resolved # NSTEMI, less likely, more likely type II MT from demand supply mismatch related to sepsis. However cannot rule out ischemic etiology completely given that ejection fraction currently has dropped to 40 to 45% with mild global hypokinesia. Last stress test in May 2022 had shown a small sized fixed perfusion abnormality of mild severity in the basal to inferolateral lujan. He has been evaluated by cardiology as outpatient and medical management was opted in view of his CKD. Will defer intervention for now as patient unlikely to tolerate dual antiplat elet therapy if needed after cath with his severe anemia. Denies any current chest pain. # Obstructive sleep apnea, continue BiPAP at night time # Acute encephalopathy from sepsis and uremia, improving # Acute on chronic renal failure, with fluid overload Started hemodialysis on April 01, 2023 # hypokalemia: Resolved DO NOT RESUSCITATE, patient's is okay with elective intubation if required Nutrition: Plan to wean off TPN today and start NG feeds Heparin for DVT prophylaxis Protonix for GI prophylaxis Attestations Medical Necessity Statement*: per admitting Coding Level of Care Code Acute Code for Chg Fwd Diagnoses Bowel perforation K63.1 ASHD (arteriosclerotic heart disease) I25.10 Diabetes 1.5, managed as type 2 E13.9 HTN (hypertension) I10 Hyperlipidemia E78.5 Septic shock A41.9; R65.21 Acute renal failure N17.9 Acute encephalopathy G93.40 E coli bacteremia R78.81; B96.20 CHRISTY (obstructive sleep apnea) G47.33 Gram-positive bacteremia R78.81 Acute respiratory failure with hypoxia J96.01 Systolic CHF I50.20 Atrial fibrillation with RVR I48.91
[2023-04-03 17:58] LABS: Glucose Point of Care 226 mg/dL (70-110)
--- NOTE | 2023-04-03 19:09 | PC.NURSE ---
Patient remained confused throughout shift. Oriented to self, month and year, however patient believed he was at home and attempting to pull at EFREM drain and Ocnteh. Patient not able to be redirected verbally, at bedside increasingly concerned with potential to pull out drain and Conteh catheter despite wrist restraints; precedex increased per SEP documentation for patient safety. Patient had 40ml from EFREM drain. Tube feeding increased to 40ml/hr, Tolerated well. Patient reported 10/10 abdominal pain and was given ordered dose of morphine which relieved his pain to 0/10 on pain scale for the remainder of this shift.
[2023-04-03 19:42] LABS: Glucose Point of Care 205 mg/dL (70-110)
[2023-04-03] MEDS: pantoprazole 40 mg SDV IVP (20:10)
[2023-04-03] MEDS: OLANZapine 5 mg ODT 10 MG PO (20:11)
[2023-04-04] VITALS (30 sets, daily range): BP systolic 91–129; BP diastolic 51–91; PULSE 58–80; RESP 16–30; TEMP 36.6–37; O2SAT 21–99
[2023-04-04] MEDS: heparin 5,000 unit/mL INJ 1 mL 5000 UNIT SUBCUT ×3 (00:09→23:05)
[2023-04-04] MEDS: dexmedetomidine 400 MCG in sodium chloride 0.9% (100 ml) 100 ML 23.99 MCG IV (01:03)
[2023-04-04] MEDS: piperacillin-tazobactam 3.375 GM in sodium chloride 0.9% (plus) 50 ML IV ×2 (02:08→14:15)
[2023-04-04] MEDS: ondansetron 2 mg/ML SDV 2 mL 4 MG IVP (03:15)
[2023-04-04] MEDS: morphine 4 mg/mL SDV 1 mL 2 MG IVP (03:16)
[2023-04-04 05:25] LABS: Basophils % 0.1 %; Eosinophils # 0.2 10^3/uL (0.0-0.8); Eosinophils % 1.7 %; Hematocrit 27.6 % (37-53); Lymphocytes # 1.8 10^3/uL (0.8-4.8); Lymphocytes % 12.9 %; Mean Corpuscular HGB Conc 31.5 g/dL (30-55); Mean Corpuscular Hemoglobin 29.3 pg (27-33); Mean Corpuscular Volume 92.9 fl (82-101); Mean Platelet Volume 11.4 fL (7.4-10.4); Monocytes % 7.2 %; Neutrophils # 10.72 10^3/uL (1.8-7.7); Nucleated Red Blood Cells % 0 %; Platelet Count 234 10^3/cmm (157-399); Red Blood Count 2.97 10^6/uL (3.85-5.65); Red Cell Distribution Width 14.7 % (12.1-15.1)
[2023-04-04 05:54] LABS: Slide Review Slide Review Perform
[2023-04-04 06:00] LABS: Alanine Aminotransferase 20 U/L (0-41); Albumin Level 2.7 g/dL (3.5-5.2); Alkaline Phosphatase 106 U/L (40-130); Blood Urea Nitrogen 67 mg/dL (8-23); Calcium 8.6 mg/dL (8.5-10.5); Carbon Dioxide 21 mmol/L (22-29); Chloride 103 mmol/L (98-107); Globulin 2.8 g/dL (1.3-4.6); Glucose 201 mg/dL (65-115); Osmolality Calculated 309 mOsm/kg (285-295); Sodium 137 mmol/L (136-145); Total Bilirubin 0.4 mg/dL (0.15-1.2); Total Protein 5.5 g/dL (6.6-8.7)
[2023-04-04 06:01] LABS: Anion Gap 17.8 (5-19); Aspartate Amino Transferase 21 U/L (0-40); Potassium 4.8 mmol/L (3.5-5.1)
[2023-04-04 08:14] LABS: Glucose Point of Care 235 mg/dL (70-110)
[2023-04-04] MEDS: heparin, porcine 1,000 unit/mL INJ 10 mL 1000 UNIT IV (08:32)
[2023-04-04] MEDS: insulin lispro 100 unit/1 mL SUBCUT ×3 (08:32→17:28)
[2023-04-04] MEDS: heparin, porcine 1,000 unit/mL INJ 10 mL 10000 UNIT INTRACATH (08:32)
--- NOTE | 2023-04-04 11:10 | ECG_ITS ---
[facility] Test Date: 2023-04-04 Pat Name: Jhon Marcos Department: Room: ICU10 Gender: Male Warp Picker: : [phone] Requested By: Rina Delcid Order Number: [id number] Shannan MD: Meghan Gillespie M.D. Measurements Intervals Tracy Rate: 61 P: 50 VT: 167 QRS: -29 QRSD: 98 T: -33 QT: 449 QTc: 453 Interpretive Statements SINUS RHYTHM INFERIOR MYOCARDIAL INFARCTION , OF INDETERMINATE AGE [40+ ms Q WAVE AND/OR ST/T ABNORMALITY IN II/aVF] Nonspecific T wave changes were noted in the precordial leads Compared to ECG 03/28/2023 18:00:52 Sinus tachycardia no longer present Myocardial infarct finding still present Electronically Signed On 04-04-2023 17:22:56 CDT by Meghan Gillespie M.D. [id number]
--- NOTE | 2023-04-04 11:47 | P.PN_ITS ---
Subjective Subjective: Patient seen and examined. Still not oriented to time or place but more talkative. Pain controlled Vitals/I&O/Wt Last Vital Signs Temp 98.1 F 04/04/23 08:37 Pulse 58 L 04/04/23 08:37 Resp 22 H 04/04/23 08:37 BP 108/60 04/04/23 08:37 Pulse Ox 94 04/04/23 08:00 O2 Del Method Room Air 04/04/23 08:00 O2 Flow Rate 3 04/01/23 09:19 FiO2 2 03/29/23 07:48 04/03/23 04/04/23 04/04/23 22:59 06:59 14:59 Intake Total 1272.664 / 1481.970 380.543 / 1862.513 154 / 154 Output Total 590 / 590 600 / 1190 Balance 682.664 / 891.970 -219.457 / 672.513 154 / 154 Weight last 48 hrs Weight 223 lb 3.2 oz Weight 224 lb Weight 226 lb 6.636 oz Weight 226 lb 6.636 oz Physical Exam Narrative: Abdomen: Soft, mild distention, minimally tender to palpation Incision intact without erythema or exudate EFREM serous sanguinous Urinary Catheter Management: Conteh: Cath Placed During This Visit: yes Reason for Continuing Indwelling Catheter: Accurate Measurement of Urinary Output in Critically Ill Patients Urinary Catheter Date of Insertion: 03/27/23 Urinary Catheter Time of Insertion: 19:10 Data 04/04/23 05:07 04/04/23 05:07 A&P Assessment and plan (1) Bowel perforation: (2) Acute renal failure: Plan Status post exploratory laparotomy with primary repair of colotomy which occurre d during a colonoscopy at an outside facility Status post permacath placement Continue tube feeds. Plan to take out NG tube and do a swallow study once he has a bowel movement. Added milk of magnesia as a gentle laxative Repeat CT showed unchanged fluid and air collection in the pelvis between the bladder and the rectum indicative of possible abscess. I spoke with the radiologist and they do not believe it safe to access at this point. We will continue with IV antibiotics. Medical management per hospitalist-input appreciated Attestations Medical Necessity Statement*: Patient quires least 1 more night in the hospital for ICU management following colon perforation Coding Level of Care Code Acute Code for Chg Fwd Diagnoses Bowel perforation K63.1 Acute renal failure N17.9
[2023-04-04 12:07] LABS: Glucose Point of Care 150 mg/dL (70-110)
[2023-04-04] MEDS: buPROPion XL (24 HR) 150 mg Tablet PO (12:09)
[2023-04-04] MEDS: HYDROcodone-acetaminophen 5-325 mg Tablet 1 TAB PO ×2 (12:09→20:11)
--- NOTE | 2023-04-04 12:13 | P.PN_ITS ---
Subjective Subjective: no new complaints Medications: Reviewed: Yes Vitals/I&O/Wt Last Vital Signs Temp 98.1 F 04/04/23 08:37 Pulse 58 L 04/04/23 08:37 Resp 22 H 04/04/23 08:37 BP 108/60 04/04/23 08:37 Pulse Ox 94 04/04/23 08:00 O2 Del Method Room Air 04/04/23 08:00 O2 Flow Rate 3 04/01/23 09:19 FiO2 2 03/29/23 07:48 04/03/23 04/04/23 04/04/23 22:59 06:59 14:59 Intake Total 1272.664 / 1481.970 380.543 / 1862.513 154 / 154 Output Total 590 / 590 600 / 1190 Balance 682.664 / 891.970 -219.457 / 672.513 154 / 154 Weight last 48 hrs Weight 101.242 kg Weight 101.605 kg Weight 102.7 kg Weight 102.7 kg Physical Exam Narrative: awake , alert HEENT PEERLA + edema Extremity: NARRATIVE EXTREMITY EXAM: trace edema Urinary Catheter Management: Conteh: Cath Placed During This Visit: yes Reason for Continuing Indwelling Catheter: Accurate Measurement of Urinary O utput in Critically Ill Patients Urinary Catheter Date of Insertion: 03/27/23 Urinary Catheter Time of Insertion: 19:10 Data 04/04/23 05:07 04/04/23 05:07 A&P Assessment and plan (1) MAYTE (acute kidney injury): Plan 1. Acute kidney injury due to sepsis, 2. E.coli (pansensitive) sepsis s/p repair of perforated sigmoid colon 3. Increased anion gap metabolic acidosis due to lactate and renal impairment. Resolved with sodium bicarbonate infusion. 4. new onset atrial fibrillation 5. 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 possible polycystic kidney disease, baseline eGFR 15 ml/min 6. Anemia, history of recent transfusion, iron deficient, received transfusion pRBC 7. History of diabetes, hypertension, coronary artery disease 8. Hypokalemia, replace IV (NPO, NGT)and hD Recommend: Avoid nephrotoxins. Discussed in detail with at bedside. s/p PC placement on 04/01. , HD started [employer] [facility] to arrange for out pt HD , can do twice /week HD Attestations Medical Necessity Statement*: per medicine team Coding Level of Care Code Acute Code for Chg Fwd Diagnoses MAYTE (acute kidney injury) N17.9
[2023-04-04] MEDS: fluconazole premix 100 MG in empty flexible container 1 EACH 50 MG IV (12:22)
[2023-04-04] MEDS: dexmedetomidine 400 MCG in sodium chloride 0.9% (100 ml) 100 ML 15.99 MCG IV (14:09)
--- NOTE | 2023-04-04 17:02 | PC.NURSE ---
Removed right groin temporary dialysis line, per Dr. Delcid. Patient has tunneled line in place.
--- NOTE | 2023-04-04 17:12 | P.PN_ITS ---
Subjective Subjective: resume home medications today incl citalopram, change olanzapine to home dose of seroquel, resume wellbutrin, titrate off precedex with initiation of home medications Medications: Reviewed: Yes Vitals/I&O/Wt Last Vital Signs Temp 98.4 F 04/04/23 16:00 Pulse 62 04/04/23 16:00 Resp 28 H 04/04/23 16:00 BP 102/63 04/04/23 16:00 Pulse Ox 94 04/04/23 16:00 O2 Del Method Room Air 04/04/23 08:00 O2 Flow Rate 3 04/01/23 09:19 FiO2 2 03/29/23 07:48 04/04/23 04/04/23 04/04/23 06:59 14:59 22:59 Intake Total 380.543 / 1862.513 504 / 504 0 / 504 Output Total 600 / 1190 1800 / 1800 Balance -219.457 / 672.513 -1296 / -1296 0 / -1296 Weight last 48 hrs Weight 101.7 kg Weight 101.242 kg Weight 101.605 kg Weight 102.7 kg Weight 102.7 kg Physical Exam Narrative: General: No acute distress, AO x3 HEENT: PERRLA, pupils bilaterally equal and reactive, pallors not present Chest: Normal vesicular breath sounds, no added sounds, equal good air entry bilaterally CVS: S1-S2 regular, no murmurs, no tachycardia, no gallops, no rubs Abdomen: Soft, celina over lower abdomen, surrounding erythema. EFREM drain in place. Clear serous drainage with some blood in it. No feculent material noted. Mild erythema developing over the left flank. Neuro: No focal deficits, no facial deformity, AO x3, power 5/5 in all limbs Urinary Catheter Management: Conteh: Cath Placed During This Visit: yes Reason for Continuing Indwelling Catheter: Accurate Measurement of Urinary Output in Critically Ill Patients Urinary Catheter Date of Insertion: 03/27/23 Urinary Catheter Time of Insertion: 19:10 Data 04/11/23 04:40 04/11/23 04:40 A&P Assessment and plan (1) Bowel perforation: (2) ASHD (arteriosclerotic heart disease): (3) Diabetes 1.5, managed as type 2: (4) HTN (hypertension): (5) Hyperlipidemia: (6) Septic shock: (7) Acute renal failure: (8) Acute encephalopathy: (9) E coli bacteremia: (10) CHRISTY (obstructive sleep apnea): (11) Gram-positive bacteremia: (12) Acute respiratory failure with hypoxia: (13) Systolic CHF: (14) Atrial fibrillation with RVR: Plan # Fever Patient has a long hospital course for septic shock, perforated bowel and intra-abdominal abscess, was slowly recovering from these issues as outlined below, however now having increasing white blood cell count over past 3 days, spiked a fever to 101 Fahrenheit overnight. He is complaining of abdominal pain which is not adequately relieved by morphine. Worse on turning sides. Possibilities include worsening intra-abdominal abscess, we will repeat a CT of the abdomen and pelvis for interval change in size of the abscess. Most recently on CT performed on April 03, 2023 the abscess was stable. He has been on fungal coverage with fluconazole for the last 5 days for thrush t herefore fungal component appears to be less likely. Patient has had several lines placed over the past few days, will check blood cultures, thus far blood cultures taken yesterday are negative to date. Most recently CT chest that showed improving bilateral effusions, he has been on room air. We will check CT of the chest to evaluate for any interval development of pneumonia which could explain his new fever. Check respiratory viral panel He had soft bowel movements overnight, C. difficile specimen had been collected yesterday and has been sent out to reference laboratory. We will start p.o. vancomycin 125 mg 4 times daily while results from C. difficile testing are pending. Antibiotics broadened to meropenem and vancomycin after having been de-escalated to Zosyn previously. Possiblly devloping cellulitis around incision site # Septic shock This was present on admission. Shock now resolved Related to discovery of a perforated colon during colonoscopy. CT imaging upon admission showed deep pelvic abscess measuring 3.9 cm. Follow- up CT 04/04 with overall stable size of abscess. Additional seroma underlying incision site Blood culture from 03/27 reported with E. coli and Bacteroides fragilis Follow-up blood cultures from March 31, 2023 thus far negative to date. He has been on appropriate antibiotic coverage based on susceptibility data. #Perforated bowel Status exploratory laparotomy, with repair of colotomy, post abdominal washout NGT in place, okay to use for meds Managed per general surgery swallow trial passed today, expected to start diet #Intra-abdominal abscess, as above Stable on serial follow up, not amenable to IR drainage manage conservatively with ongoing abx anticipate another 2 weeks course, final to be dependent on clinical and radiological progress #Intermittent A-fib with RVR - has been in sinus rhythm over the past week Amiodarone 200 p.o. two times daily, increase metoprolol 50 mg p.o. twice daily suspect that transient atrial fibrillation was related to sepsis -With his chronic anemia and hemoglobin dropped down to 5.0 in the recent past with suspected recent GI source of bleeding, do not believe patient will be a candidate for outpatient DOACs. # Acute hypoxic respiratory failure - now resolved Multifactorial,-Secondary to fluid overload from MAYTE on CKD and systolic CHF -Started hemodialysis with improvement in respiratory status -Pleural effusions have resolved , no consolidation # NSTEMI vs type II AK from demand supply mismatch related to sepsis. However cannot rule out ischemic etiology completely given that ejection fraction currently has dropped to 40 to 45% with mild global hypokinesia. Last stress test in May 2022 had shown a small sized fixed perfusion abnormality of mild severity in the basal to inferolateral lujan. He has been evaluated by cardiology as outpatient and medical management was opted in view of his CKD. Will defer intervention for now as patient unlikely to tolerate dual antiplatelet therapy if needed after cath with his severe anemia. Denies any current chest pain. # Obstructive sleep apnea, BiPAP at night time # Acute encephalopathy from sepsis and uremia, resolving, restarted hoem meds # Acute on chronic renal failure, with fluid overload Started hemodialysis on April 01, 2023, tolerating well DO NOT RESUSCITATE, patient's is okay with elective intubation if required Nutrition: Ng feeds ongoing, swallow trial Heparin for DVT prophylaxis Protonix for GI prophylaxis Attestations Medical Necessity Statement*: per admitting Coding Level of Care Code Acute Code for Chg Fwd Diagnoses Bowel perforation K63.1 ASHD (arteriosclerotic heart disease) I25.10 Diabetes 1.5, managed as type 2 E13.9 HTN (hypertension) I10 Hyperlipidemia E78.5 Septic shock A41.9; R65.21 Acute renal failure N17.9 Acute encephalopathy G93.40 E coli bacteremia R78.81; B96.20 CHRISTY (obstructive sleep apnea) G47.33 Gram-positive bacteremia R78.81 Acute respiratory failure with hypoxia J96.01 Systolic CHF I50.20 Atrial fibrillation with RVR I48.91
[2023-04-04 17:20] LABS: Glucose Point of Care 160 mg/dL (70-110)
--- NOTE | 2023-04-04 17:43 | PC.NURSE ---
Morning and evening dose of metoprolol and amiodorone held per Dr. Delcid and v/s.
[2023-04-04] MEDS: pantoprazole 40 mg SDV IVP (20:11)
[2023-04-04] MEDS: magnesium hydroxide 30 mL UDC PO (20:11)
[2023-04-04] MEDS: quetiapine 100 mg Tablet PO (20:11)
[2023-04-04] MEDS: carbidopa-levodopa 25-100mg Tablet 1 EACH PO (20:15)
[2023-04-04] MEDS: ALPRAZolam 0.5 mg Tablet PO (23:05)
[2023-04-05] VITALS (31 sets, daily range): BP systolic 100–157; BP diastolic 54–93; PULSE 75–122; RESP 17–35; TEMP 36.6–38.4; O2SAT 88–97
[2023-04-05] MEDS: piperacillin-tazobactam 3.375 GM in sodium chloride 0.9% (plus) 50 ML IV (02:33)
[2023-04-05] MEDS: morphine 4 mg/mL SDV 1 mL 2 MG IVP ×2 (02:38→11:34)
[2023-04-05] MEDS: HYDROcodone-acetaminophen 5-325 mg Tablet 1 TAB PO (05:33)
[2023-04-05 07:12] LABS: Glucose Point of Care 251 mg/dL (70-110)
[2023-04-05] MEDS: metoprolol tartrate 25 mg Tablet PO ×2 (07:38→20:22)
[2023-04-05] MEDS: buPROPion XL (24 HR) 150 mg Tablet PO (07:38)
[2023-04-05] MEDS: ALPRAZolam 0.5 mg Tablet PO ×2 (07:38→20:22)
[2023-04-05] MEDS: amiodarone 200 mg Tablet PO ×2 (07:39→17:12)
[2023-04-05] MEDS: carbidopa-levodopa 25-100mg Tablet 1 EACH PO ×2 (07:39→20:23)
[2023-04-05] MEDS: finasteride 5 mg Tablet PO (07:39)
[2023-04-05] MEDS: insulin lispro 100 unit/1 mL SUBCUT ×3 (07:39→17:12)
[2023-04-05] MEDS: citalopram 20 mg Tablet 40 MG PO (07:39)
[2023-04-05 10:33] LABS: Basophils % 0.1 %; Eosinophils # 0.5 10^3/uL (0.0-0.8); Eosinophils % 2.3 %; Hematocrit 30.9 % (37-53); Lymphocytes # 1.7 10^3/uL (0.8-4.8); Lymphocytes % 8.1 %; Mean Corpuscular HGB Conc 31.7 g/dL (30-55); Mean Corpuscular Hemoglobin 29.8 pg (27-33); Mean Corpuscular Volume 93.9 fl (82-101); Mean Platelet Volume 11.3 fL (7.4-10.4); Monocytes # 1.2 10^3/uL (0.2-0.9); Neutrophils # 16.78 10^3/uL (1.8-7.7); Neutrophils % 81.9 %; Nucleated Red Blood Cells % 0 %; Platelet Count 335 10^3/cmm (157-399); Red Blood Count 3.29 10^6/uL (3.85-5.65); Red Cell Distribution Width 14.8 % (12.1-15.1)
[2023-04-05 10:36] LABS: Anion Gap 19.1 (5-19); Blood Urea Nitrogen 63 mg/dL (8-23); Calcium 8.4 mg/dL (8.5-10.5); Carbon Dioxide 24 mmol/L (22-29); Chloride 100 mmol/L (98-107); Glucose 203 mg/dL (65-115); Magnesium 2.3 mg/dL (1.7-2.3); Osmolality Calculated 312 mOsm/kg (285-295); Potassium 4.1 mmol/L (3.5-5.1); Sodium 139 mmol/L (136-145)
--- NOTE | 2023-04-05 10:59 | P.PN_ITS ---
Subjective Subjective: Patient seen and examined. Seems unchanged from yesterday. Vitals/I&O/Wt Last Vital Signs Temp 99.8 F H 04/05/23 08:00 Pulse 84 04/05/23 09:20 Resp 20 H 04/05/23 09:20 BP 144/70 04/05/23 08:00 Pulse Ox 94 04/05/23 09:20 O2 Del Method Room Air 04/05/23 09:20 O2 Flow Rate 3 04/01/23 09:19 FiO2 2 03/29/23 07:48 04/04/23 04/05/23 04/05/23 22:59 06:59 14:59 Intake Total 107.297 / 611.297 576.703 / 1188.000 0 / 0 Output Total 300 / 2100 320 / 2420 Balance -192.703 / -1488.703 256.703 / -1232.000 0 / 0 Weight last 48 hrs Weight 224 lb Weight 224 lb 3.362 oz Weight 223 lb 3.2 oz Physical Exam Narrative: Abdomen: Soft, mild distention, minimally tender to palpation Incision intact without erythema or exudate EFREM serous sanguinous Urinary Catheter Management: Conteh: Cath Placed During This Visit: yes Reason for Continuing Indwelling Catheter: Accurate Measurement of Urinary Output in Critically Ill Patients Urinary Catheter Date of Insertion: 03/27/23 Urinary Catheter Time of Insertion: 19:10 Data 04/05/23 09:58 04/05/23 09:58 A&P Assessment and plan (1) Bowel perforation: (2) Acute renal failure: Plan Status post exploratory laparotomy with primary repair of colotomy which oc curred during a colonoscopy at an outside facility Status post permacath placement Continue tube feeds. Plan to take out NG tube and do a swallow study once he has a bowel movement. Added milk of magnesia as a gentle laxative Repeat CT showed unchanged fluid and air collection in the pelvis between the bladder and the rectum indicative of possible abscess. I spoke with the radiologist and they do not believe it safe to access at this point. We will continue with IV antibiotics and plan for repeat CT in 1 week. It is unclear at this time with a source of his increasing leukocytosis and tach ycardia is. I have discussed with medicine. Possibly due to accumulating abscess. Abdomen is minimally tender. Plan to DC NG tube and have speech do a swallow study after he has a bowel movement Medical management per hospitalist-input appreciated Attestations Medical Necessity Statement*: Patient quires least 1 more night in the hospital for ICU management following colon perforation Coding Level of Care Code Acute Code for Chg Fwd Diagnoses Bowel perforation K63.1 Acute renal failure N17.9
[2023-04-05] MEDS: meropenem 1,000 MG in sodium chloride 0.9% (plus) 50 ML 100 MG IV ×2 (11:23→22:54)
[2023-04-05] MEDS: heparin 5,000 unit/mL INJ 1 mL 5000 UNIT SUBCUT ×2 (11:24→23:00)
[2023-04-05 12:40] LABS: Glucose Point of Care 187 mg/dL (70-110)
--- NOTE | 2023-04-05 12:40 | PC.SOCIAL ---
IMM Updated Updated pt on IMM. No questions voiced. Provided pt a copy. Initialed, dated, & timed copy in chart.
--- NOTE | 2023-04-05 15:52 | P.PN_ITS ---
Subjective Subjective: Leukocytosis increasing to 20,000 today. Tmax 99.8 Fahrenheit. He is having some pain since resuming tube feeds but states it is tolerable. He had a large bowel movement earlier this morning. Mild erythema developing around his celina. Medications: Reviewed: Yes Vitals/I&O/Wt Last Vital Signs Temp 99.8 F H 04/05/23 08:00 Pulse 105 H 04/05/23 14:55 Resp 24 H 04/05/23 12:00 BP 139/75 04/05/23 12:00 Pulse Ox 94 04/05/23 12:00 O2 Del Method Room Air 04/05/23 12:00 O2 Flow Rate 3 04/01/23 09:19 FiO2 2 03/29/23 07:48 04/05/23 04/05/23 04/05/23 06:59 14:59 22:59 Intake Total 576.703 / 1188.000 50 / 50 Output Total 320 / 2420 Balance 256.703 / -1232.000 50 / 50 Weight last 48 hrs Weight 101.605 kg Weight 101.7 kg Weight 101.242 kg Physical Exam Narrative: General: No acute distress, AO x3 HEENT: PERRLA, pupils bilaterally equal and reactive, pallors not present Chest: Normal vesicular breath sounds, no added sounds, equal good air entry bilaterally CVS: S1-S2 regular, no murmurs, no tachycardia, no gallops, no rubs Abdomen: Soft, nontender, no organomegaly, bowel sounds present Neuro: No focal deficits, no facial deformity, AO x3, power 5/5 in all limbs Urinary Catheter Management: Conteh: Cath Placed During This Visit: yes Reason for Continuing Indwelling Catheter: Accurate Measurement of Urinary Output in Critically Ill Patients Urinary Catheter Date of Insertion: 03/27/23 Urinary Catheter Time of Insertion: 19:10 Data 04/05/23 09:58 04/05/23 09:58 Micro: Microbiology 03/31/23 12:00 Blood Culture - Final Blood NO GROWTH AFTER 5 DAYS 03/31/23 12:07 Blood Culture - Final Blood NO GROWTH AFTER 5 DAYS 04/05/23 11:40 Blood Culture - Preliminary Blood SPECIMEN COLLECTED 04/05/23 11:36 Blood Culture - Preliminary Blood SPECIMEN COLLECTED A&P Assessment and plan (1) Bowel perforation: (2) ASHD (arteriosclerotic heart disease): (3) Diabetes 1.5, managed as type 2: (4) HTN (hypertension): (5) Hyperlipidemia: (6) Septic shock: (7) Acute renal failure: (8) Acute encephalopathy: (9) E coli bacteremia: (10) CHRISTY (obstructive sleep apnea): (11) Gram-positive bacteremia: (12) Acute respiratory failure with hypoxia: (13) Systolic CHF: (14) Atrial fibrillation with RVR: Plan # Septic shock This was present on admission. Shock now resolved Related to discovery of a perforated colon during colonoscopy. CT imaging upon admission showed deep pelvic abscess measuring 3.9 cm. Follow- up CT 04/04 with overall stable size of abscess. Additional seroma underlying incision site Blood culture from 03/27 reported with E. coli and Bacteroides fragilis Follow-up blood cultures from March 31, 2023 thus far negative to date. He has been on appropriate antibiotic coverage based on susceptibility data. Patient's white count has been trending up slowly over the past 3 days after having normalized. Today it is up to 20,000. Also developed low-grade fever in the interim 99.8 Fahrenheit. Stable abscess noted yesterday on CT. Perhaps developing some early signs of cellulitis around the staple site. We had narrowed antibiotic coverage from meropenem to piperacillin/tazobactam, however now given trending up white count and interim development of fever will broaden Antibiotics to meropenem and vancomycin while evaluating for underlying sources of infection. Possible sources are skin and soft tissue infection around the site of sutures, possible C diff given diarrhea today, check blood cultures given that patient recently had multiple lines placed may potentially be bacteremic. Include vancomycin for MRSA coverage. Screen with MRSA nasal swab. On fluconazole 100mg iv q24h for 5days for oral thrush , day 5 today #Perforated bowel Status exploratory laparotomy, with repair of colotomy, post abdominal washout NGT in place, okay to use for meds Managed per general surgery swallow trial today #Intra-abdominal abscess, as above Stable on serial follow up, not amenable to IR drainage manage conservatively with ongoing abx anticipate another 2 weeks course, final to be dependent on clinical and radiological progress #Intermittent A-fib with RVR - has been in sinus rhythm over the past 4 to 5 days. Developed prior sinus bradycardia yesterday. Amiodarone reduced to 200 p.o. 3 times daily, continue metoprolol 25 mg p.o. twice daily At home patient is on propanolol and bisoprolol as part of his home medication regimen. Heart rate is currently well controlled suspect that transient atrial fibrillation was related to sepsis -With his chronic anemia and hemoglobin dropped down to 5.0 in the recent past with suspected recent GI source of bleeding, do not believe patient will be a candidate for outpatient DOACs. # Acute hypoxic respiratory failure Multifactorial,-Secondary to fluid overload from MAYTE on CKD and systolic CHF -Started hemodialysis with improvement in respiratory status -Pleural effusions have resolved , no consolidation # NSTEMI, less likely, more likely type II SC from demand supply mismatch related to sepsis. However cannot rule out ischemic etiology completely given that ejection fraction currently has dropped to 40 to 45% with mild global hypokinesia. Last stress test in May 2022 had shown a small sized fixed perfusion abnormality of mild severity in the basal to inferolateral lujan. He has been evaluated by cardiology as outpatient and medical management was opted in view of his CKD. Will defer intervention for now as patient unlikely to tolerate dual antiplatelet therapy if needed after cath with his severe anemia. Denies any current chest pain. # Obstructive sleep apnea, continue BiPAP at night time # Acute encephalopathy from sepsis and uremia, improving # Acute on chronic renal failure, with fluid overload Started hemodialysis on April 01, 2023, tolerating well # hypokalemia: Resolved DO NOT RESUSCITATE, patient's is okay with elective intubation if required Nutrition: Ng feeds ongoing, swallow trial Heparin for DVT prophylaxis Protonix for GI prophylaxis Attestations Medical Necessity Statement*: per admitting Coding Level of Care Code Acute Code for g Fwd Diagnoses Bowel perforation K63.1 ASHD (arteriosclerotic heart disease) I25.10 Diabetes 1.5, managed as type 2 E13.9 HTN (hypertension) I10 Hyperlipidemia E78.5 Septic shock A41.9; R65.21 Acute renal failure N17.9 Acute encephalopathy G93.40 E coli bacteremia R78.81; B96.20 CHRISTY (obstructive sleep apnea) G47.33 Gram-positive bacteremia R78.81 Acute respiratory failure with hypoxia J96.01 Systolic CHF I50.20 Atrial fibrillation with RVR I48.91
[2023-04-05 17:09] LABS: Glucose Point of Care 181 mg/dL (70-110)
[2023-04-05] MEDS: vancomycin 1,500 MG/300 ML PIGGYBACK 200 MG IV (18:32)
--- NOTE | 2023-04-05 19:31 | PC.NURSE ---
Patient remains confused, temperature elevated as well as wbc, patel removed, blood cultures taken, IV antibiotics, and C-diff sample sent to lab. Patient had two large loose stools for this shift. Speech eval pending at this time, attempt made at contacting were unsuccessful. Patient minimally compliant with PT this afternoon, reports this is characteristic of patient. Patient remains in restraints for integrity of PICC, EFREM brain and NG. Bed alarm in use as patient attempts to get out of bed.
[2023-04-05] MEDS: pantoprazole 40 mg SDV IVP (20:19)
[2023-04-05] MEDS: quetiapine 100 mg Tablet PO (20:22)
[2023-04-05 22:46] LABS: Glucose Point of Care 173 mg/dL (70-110)
[2023-04-05] MEDS: acetaminophen 325 mg/10.15 mL UDC PO (22:54)
--- NOTE | 2023-04-05 22:54 | PM.PN ---
Subjective Subjective: nonew complaints Medications: Reviewed: Yes Vitals/I&O/Wt Last Vital Signs Temp 101.1 F H 04/05/23 21:00 Pulse 96 04/05/23 22:00 Resp 27 H 04/05/23 21:00 BP 123/93 04/05/23 21:00 Pulse Ox 93 04/05/23 21:00 O2 Del Method Room Air 04/05/23 21:00 O2 Flow Rate 3 04/01/23 09:19 FiO2 2 03/29/23 07:48 04/05/23 04/05/23 04/05/23 06:59 14:59 22:59 Intake Total 576.703 / 1188.000 50 1028 / 1078 Output Total 320 / 2420 Balance 256.703 / -1232.000 1013 / 1063 Weight last 48 hrs Weight 101.605 kg Weight 101.7 kg Weight 101.242 kg Physical Exam Narrative: awake , alert HEENT PEERLA + edema Extremity: NARRATIVE EXTREMITY EXAM: trace edema Urinary Catheter Management: Conteh: Cath Placed During This Visit: yes Reason for Continuing Indwelling Catheter: Accurate Measurement of Urinary Output in Critically Ill Patients Urinary Catheter Date of Insertion: 03/27/23 Urinary Catheter Time of Insertion: 19:10 Data 04/05/23 09:58 04/05/23 09:58 Micro: Microbiology 03/31/23 12:00 Blood Culture - Final Blood NO GROWTH AFTER 5 DAYS 03/31/23 12:07 Blood Culture - Final Blood NO GROWTH AFTER 5 DAYS 04/05/23 11:40 Blood Culture - Preliminary Blood SPECIMEN COLLECTED 04/05/23 11:36 Blood Culture - Preliminary Blood SPECIMEN COLLECTED A&P Assessment and plan (1) MAYTE (acute kidney injury): Plan 1. Acute kidney injury due to sepsis, 2. E.coli (pansensitive) sepsis s/p repair of perforated sigmoid colon 3. Increased anion gap metabolic acidosis due to lactate and renal impairment. Resolved with sodium bicarbonate infusion. 4. new onset atrial fibrillation 5. 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 possible polycystic kidney disease, baseline eGFR 15 ml/min 6. Anemia, history of recent transfusion, iron deficient, received transfusion pRBC 7. History of diabetes, hypertension, coronary artery disease 8. Hypokalemia, replace IV (NPO, NGT)and hD Recommend: Avoid nephrotoxins. Discussed in detail with at bedside. s/p PC placement on 04/01. , HD started [employer] work to arrange for out pt HD , can do twice /week HD Attestations Medical Necessity Statement*: per lily Coding Level of Care Code Acute Code for Chg Fwd Diagnoses MAYTE (acute kidney injury) N17.9
[2023-04-06] VITALS (24 sets, daily range): BP systolic 127–185; BP diastolic 69–122; PULSE 85–122; RESP 14–28; TEMP 37.1–37.7; O2SAT 87–98
[2023-04-06 05:06] LABS: Basophils % 0.2 %; Eosinophils # 0.4 10^3/uL (0.0-0.8); Eosinophils % 2.2 %; Hematocrit 30.5 % (37-53); Lymphocytes # 1.3 10^3/uL (0.8-4.8); Lymphocytes % 6.4 %; Mean Corpuscular HGB Conc 30.5 g/dL (30-55); Mean Corpuscular Hemoglobin 27.8 pg (27-33); Mean Corpuscular Volume 91.3 fl (82-101); Mean Platelet Volume 11.4 fL (7.4-10.4); Monocytes # 1.4 10^3/uL (0.2-0.9); Neutrophils # 16.19 10^3/uL (1.8-7.7); Neutrophils % 82.7 %; Nucleated Red Blood Cells % 0 %; Platelet Count 422 10^3/cmm (157-399); Red Blood Count 3.34 10^6/uL (3.85-5.65); Red Cell Distribution Width 14.7 % (12.1-15.1); White Blood Count 19.57 10^3/uL (3.29-11.43)
[2023-04-06 05:19] LABS: Alanine Aminotransferase 7 U/L (0-41); Albumin Level 3.3 g/dL (3.5-5.2); Alkaline Phosphatase 132 U/L (40-130); Anion Gap 21.9 (5-19); Aspartate Amino Transferase 16 U/L (0-40); Blood Urea Nitrogen 73 mg/dL (8-23); Calcium 8.9 mg/dL (8.5-10.5); Carbon Dioxide 23 mmol/L (22-29); Chloride 97 mmol/L (98-107); Globulin 3.2 g/dL (1.3-4.6); Glucose 193 mg/dL (65-115); Osmolality Calculated 313 mOsm/kg (285-295); Potassium 3.9 mmol/L (3.5-5.1); Sodium 138 mmol/L (136-145); Total Bilirubin 0.4 mg/dL (0.15-1.2); Total Protein 6.5 g/dL (6.6-8.7)
[2023-04-06] MEDS: finasteride 5 mg Tablet PO (09:46)
[2023-04-06] MEDS: amiodarone 200 mg Tablet PO ×2 (09:46→16:59)
[2023-04-06] MEDS: citalopram 20 mg Tablet 40 MG PO (09:46)
[2023-04-06] MEDS: metoprolol tartrate 25 mg Tablet PO (09:46)
[2023-04-06] MEDS: buPROPion XL (24 HR) 150 mg Tablet PO (09:46)
[2023-04-06] MEDS: carbidopa-levodopa 25-100mg Tablet 1 EACH PO ×2 (09:46→21:07)
[2023-04-06] MEDS: insulin lispro 100 unit/1 mL SUBCUT (09:49)
[2023-04-06 09:50] LABS: Glucose Point of Care 237 mg/dL (70-110)
--- NOTE | 2023-04-06 10:29 | CTR_ITS ---
PROCEDURE INFORMATION: Exam: CT Chest Without Contrast; Diagnostic Exam date and time: 04/06/2023 12:59 PM Age: 77 years old Clinical indication: Shortness of breath; Additional info: Evalaute for pneumonia vs empyema TECHNIQUE: Imaging protocol: Diagnostic computed tomography of the chest without contrast. 253image(s) are provided. Radiation optimization: All CT scans at this facility use at least one of these dose optimization techniques: automated exposure control; mA and/or kV adjustment per patient size (includes targeted exams where dose is matched to clinical indication); or iterative reconstruction. Other technique: Axial images are available with sagittal and coronal reconstruction views. Automated dose exposure control is utilized. The DLP is 1675.13. REPORTING DATA: Count of CT and Cardiac NM exams in prior 12 months: This patient has received 4 known CTs and 0 known cardiac nuclear medicine studies in the 12 months prior to the current study. COMPARISON: 1[place] [id number] 03/29/2023 3:[address] abdomen same day. 2. CR XR chest 1V portable [id number] 04/01/2023 12:49 PM RADIATION DOSE METRICS: Total DLP (mGy-cm): 612.4 FINDINGS: Tubes, catheters and devices: The gastric tube remains. There is history of a right PICC line. There is an interval right tunnel central catheter now present. Trachea: The central airways are patent. Lungs: There is some patchy atelectatic consolidation residual of the left lower lobe and could also represent some compressive atelectasis. There is also some similar patchy volume loss of the inferior segment of the lingula. There are granulomatous lung changes on the left. Aeration is improved on the right. Pleural spaces: No pneumothorax is appreciated. There is decreased right pleural fluid and patchy consolidative volume loss in the interval with some minimal residual at the lung base. There is a persistent small amount of pleural fluid layering on the left. Heart: There is some pericardial fluid demonstrated similar overall in orientation. The greatest thickness is approximately 2.8 cm versus previous 2 cm with Hounsfield units of approximately 20. Coronary arteries: There are coronary arterial calcifications present similar overall. Lymph nodes: There is some subcentimeter lower neck supraclavicular lymph nodes right more so than left similar overall. There is similar subcentimeter predominant mediastinal and hilar lymph nodes overall. Vasculature: No interval saccular aortic aneurysmal dilatation is appreciated. Intraperitoneal space: The intraperitoneal space abdominal findings correlates with the dedicated CT abdomen description same day. Bones/joints: Osseous alignment is maintained.No interval displaced fracture or dislocation is appreciated.There is slightly decreased bone mineralization overall. There is similar overall appearance of the right humeral head prosthesis. There are chronic advanced degenerative changes of the left shoulder demonstrated similar overall with [id number] appearance. There are some chronic appearing rib deformities present. Soft tissues: No radiopaque foreign body or subcutaneous emphysema is appreciated. There is some slight subcutaneous stranding overall left slightly more so than right. There appears to be some slightly asymmetric left gynecomastia. Other findings: There is some motion artifact present. No other significant interval changes are appreciated. CT/CT chest wo con [id number] IMPRESSION: 1. In the interval there is some improving aeration on the right with decreased consolidative volume loss and pleural fluid. 2. The small pleural effusion as well as the adjacent atelectatic consolidation remains similar at the left lung base. No interval significant loculation or air-fluid level is currently appreciated. 3. There is some pericardial fluid present similar overall in location although appears slightly thicker inferiorly on the left and could represent some interval progression.
--- NOTE | 2023-04-06 10:29 | CTR_ITS ---
PROCEDURE INFORMATION: Exam: CT Abdomen And Pelvis With Contrast Exam date and time: 04/06/2023 12:59 PM Age: 77 years old Clinical indication: Fever; Prior surgery; Surgery date: 1-6 months; Surgery type: Colon; Additional info: Recurrent fever, known intraabdominal abscess from perforated diverticulitis,No history of trauma is provided. TECHNIQUE: Imaging protocol: Computed tomography of the abdomen and pelvis with contrast. 260image(s) are provided. Radiation optimization: All CT scans at this facility use at least one of these dose optimization techniques: automated exposure control; mA and/or kV adjustment per patient size (includes targeted exams where dose is matched to clinical indication); or iterative reconstruction. Contrast material: OMNI 350; Contrast volume: 100 ml; Contrast route: INTRAVENOUS (IV); Other technique: Axial images are available with sagittal and coronal reconstruction views. Automated dose exposure control is utilized. The DLP is 1675.13. REPORTING DATA: Count of CT and Cardiac NM exams in prior 12 months: This patient has received 4 known CTs and 0 known cardiac nuclear medicine studies in the 12 months prior to the current study. COMPARISON: CT abdomen pelvis w con* [id number] 04/03/2023 10:[address] chest same day. RADIATION DOSE METRICS: Total DLP (mGy-cm): 1032 FINDINGS: Tubes, catheters and devices: The gastric tube remains. The right femoral line previously visualized is no longer appreciated. The interventional drain remains. Lungs: The lung base findings correlate with the CT chest description same day. Liver: There are some liver granulomatous related changes present. Gallbladder and bile ducts: The gallbladder appears slightly patulous with some trace sludge. This can also be seen with some vicarious excretion. Pancreas: No pancreatic ductal dilatation or calculus is currently appreciated. Spleen: There is similar overall spleen granulomatous along with perisplenic fluid related changes with central Hounsfield units of approximately 20. Adrenal glands: There is some adrenal hypertrophy. Kidneys and ureters: There are multiple renal cystic appearing changes similar with the previous descriptions. Some demonstrate calcification. Stomach and bowel: There is some subtle stranding along with some minimal residual fluid for example about the descending colon lateral margin similar overall. There is history of abdominal abscess and appears similar in location between the rectum and bladder margin. There is some punctate air within similar. The greatest dimensions currently are approximately 5.3 x 3.7 x 5.6 cm. This appears slightly larger overall. This also abuts the adjacent bowel margin. Some aspects of the colon are undistended. This may also be peristaltic related.There is some stool present limiting mucosal detail evaluation.The bowel gas pattern appears nonobstructive. Appendix: There is an unremarkable appearance of the appendix demonstrated. Intraperitoneal space: No layering free air is currently appreciated. There is some mesenteric and omental stranding similar overall. Vasculature: No interval abdominal aortic aneurysmal dilatation or periaortic fluid is appreciated. There is some irregular filling appearance about the right external iliac and femoral venous junction in the interval which could be seen with some early partial thrombosis. Lymph nodes: There are some reactive appearing lymph node changes similar overall. Urinary bladder: There is some punctate bladder air present. Reproductive: Unremarkable as visualized. Bones/joints: Osseous alignment is maintained.No interval displaced fracture or dislocation is appreciated.There is slightly decreased bone mineralization overall. There is chronic multilevel degeneration of the lumbar spine again demonstrated. There are chronic appearing rib deformities present. There is some persistent stranding and may be subtly increased along the right iliac psoas margin. Soft tissues: No radiopaque foreign body or subcutaneous emphysema is appreciated. There are overlying skin celina present. There is some slight subcutaneous tissue stranding similar along with some minimal punctate air for example on the left. This could be seen with some injection or interventional related sequela along with the midline celina and seroma type appearance. No internal air-fluid levels of the expected seroma site is currently appreciated. The density is somewhat increased at 20 Hounsfield units and therefore could also represent some complexity or early inflammation. Other findings: There is some motion artifact present. No other significant interval changes are appreciated. CT/CT abdomen pelvis w con* [id number] IMPRESSION: 1. There is some patchy filling defect asymmetry demonstrated about the right external iliac femoral venous junction and could represent some early thrombosis. Consider lower extremity venous Doppler ultrasound. 2. The previously described seroma area of the anterior abdominal wall appears slightly larger overall. Consider if there is associated skin drainage as some early inflammation could also present in this fashion. 3. The percutaneous drain remains similar overall in location and orientation extending to the left lateral abdomen. No discrete fluid collections directly adjacent to this are appreciated although there is some subtle stranding as well as some marginal fluid about the lateral margin of the descending colon similar otherwise. 4. There is a previously described abscess type collection between the rectum and bladder which appears slightly larger overall in the interval.
--- NOTE | 2023-04-06 10:58 | PM.PN ---
Subjective Subjective: no new complaints Medications: Reviewed: Yes Vitals/I&O/Wt Last Vital Signs Temp 98.9 F 04/06/23 04:00 Pulse 114 H 04/06/23 08:00 Resp 18 04/06/23 08:00 BP 185/93 04/06/23 08:00 Pulse Ox 97 04/06/23 08:00 O2 Del Method Room Air 04/06/23 08:00 O2 Flow Rate 3 04/01/23 09:19 FiO2 2 03/29/23 07:48 04/05/23 04/06/23 04/06/23 22:59 06:59 14:59 Intake Total 1028 / 1078 1326 / 2404 Output Total Balance 1013 / 1063 1326 / 2389 Weight last 48 hrs Weight 101.469 kg Weight 101.605 kg Weight 101.7 kg Physical Exam Narrative: awake , alert HEENT PEERLA + edema Extremity: NARRATIVE EXTREMITY EXAM: trace edema Urinary Catheter Management: Conteh: Cath Placed During This Visit: yes Reason for Continuing Indwelling Catheter: Accurate Measurement of Urinary Output in Critically Ill Patients Urinary Catheter Date of Insertion: 03/27/23 Urinary Catheter Time of Insertion: 19:10 Data 04/06/23 04:32 04/06/23 04:32 Micro: Microbiology 03/31/23 12:00 Blood Culture - Final Blood NO GROWTH AFTER 5 DAYS 03/31/23 12:07 Blood Culture - Final Blood NO GROWTH AFTER 5 DAYS 04/05/23 11:40 Blood Culture - Preliminary Blood SPECIMEN COLLECTED 04/05/23 11:36 Blood Culture - Preliminary Blood SPECIMEN COLLECTED A&P Assessment and plan (1) MAYTE (acute kidney injury): Plan 1. Acute kidney injury due to sepsis, 2. E.coli (pansensitive) sepsis s/p repair of perforated sigmoid colon 3. Increased anion gap metabolic acidosis due to lactate and renal impairment. Resolved with sodium bicarbonate infusion. 4. new onset atrial fibrillation 5. 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 possible polycystic kidney disease, baseline eGFR 15 ml/min 6. Anemia, history of recent transfusion, iron deficient, received transfusion pRBC 7. History of diabetes, hypertension, coronary artery disease 8. Hypokalemia, replace IV (NPO, NGT)and hD Recommend: Avoid nephrotoxins. Discussed in detail with at bedside. s/p PC placement on 04/01. , HD started [facility] [facility] to arrange for out pt HD , can do twice /week HD Attestations Medical Necessity Statement*: per medicine Coding Level of Care Code Acute Code for Chg Fwd Diagnoses MAYTE (acute kidney injury) N17.9
[2023-04-06 11:32] LABS: Glucose Point of Care 251 mg/dL (70-110)
--- NOTE | 2023-04-06 13:06 | PM.PN ---
Subjective Subjective: Patient seen and examined. He has increased abdominal distention and tenderness today. There are some erythema on the inferior aspect of his incision. He was febrile overnight Vitals/I&O/Wt Last Vital Signs Temp 98.9 F 04/06/23 04:00 Pulse 114 H 04/06/23 08:00 Resp 18 04/06/23 08:00 BP 185/93 04/06/23 08:00 Pulse Ox 97 04/06/23 08:00 O2 Del Method Room Air 04/06/23 08:00 O2 Flow Rate 3 04/01/23 09:19 FiO2 2 03/29/23 07:48 04/05/23 04/06/23 04/06/23 22:59 06:59 14:59 Intake Total 1028 / 1078 1326 / 2404 Output Total Balance 1013 / 1063 1326 / 2389 Weight last 48 hrs Weight 223 lb 11.2 oz Weight 224 lb Physical Exam Narrative: Abdomen: Soft, distended, diffuse mild tenderness to palpation, no guarding rebound or masses Incision intact, some erythema on the inferior aspect of the incision without exudate EFREM serous sanguinous Urinary Catheter Management: Conteh: Cath Placed During This Visit: yes Reason for Continuing Indwelling Catheter: Accurate Measurement of Urinary Output in Critically Ill Patients Urinary Catheter Date of Insertion: 03/27/23 Urinary Catheter Time of Insertion: 19:10 Data 04/06/23 04:32 04/06/23 04:32 Micro: Microbiology 04/05/23 11:36 Blood Culture - Preliminary Blood NEGATIVE TO DATE 04/05/23 11:40 Blood Culture - Preliminary Blood NEGATIVE TO DATE 03/31/23 12:00 Blood Culture - Final Blood NO GROWTH AFTER 5 DAYS 03/31/23 12:07 Blood Culture - Final Blood NO GROWTH AFTER 5 DAYS A&P Assessment and plan (1) Bowel perforation: (2) Acute renal failure: Plan Postoperative day #10 status post exploratory laparotomy with primary repair of colotomy which occurred during a colonoscopy at an outside facility Status post permacath placement The change in his abdominal exam is somewhat concerning. A repeat CT of the abdomen is ordered. N.p.o. for now until CT resulted. He passed a swallow study yesterday. Hospitalist following-appreciate input Attestations Medical Necessity Statement*: Patient quires least 1 more night in the hospital for ICU management following colon perforation Coding Level of Care Code Acute Code for Chg Fwd Diagnoses Bowel perforation K63.1 Acute renal failure N17.9
[2023-04-06] MEDS: iohexol 350 mg/mL 500 mL Btl (per mL) IV (13:11)
[2023-04-06 13:46] LABS: Adenovirus Not Detected (NOT DETECT); Chlamydia Pneumoniae Not Detected (NOT DETECT); Coronavirus 229E,HKU1,NL63,OC4 Not Detected (NOT DETECT); Human Metapneumovirus Not Detected (NOT DETECT); Human Rhinovirus/Enterovirus Not Detected (NOT DETECT); Influenza A Not Detected (NOT DETECT); Influenza A H1 Not Detected (NOT DETECT); Influenza A H1-2009 Not Detected (NOT DETECT); Influenza A H3 Not Detected (NOT DETECT); Influenza B Not Detected (NOT DETECT); Mycoplasma Pneumoniae Not Detected (NOT DETECT); Parainfluenza Virus Type 1 Not Detected (NOT DETECT); Parainfluenza Virus Type 2 Not Detected (NOT DETECT); Parainfluenza Virus Type 3 Not Detected (NOT DETECT); Parainfluenza Virus Type 4 Not Detected (NOT DETECT); Respiratory Syncytial Virus A Not Detected (NOT DETECT); Respiratory Syncytial Virus B Not Detected (NOT DETECT); SARS-COV-2 Not Detected (NOT DETECT)
--- NOTE | 2023-04-06 14:07 | P.PN_ITS ---
Subjective Subjective: He is alert awake and oriented. Passed a swallow eval today. Febrile overnight to 101 Fahrenheit. Leukocytosis at 19, stable compared to yesterday. States that his abdominal pain has worsened today. And any change in position is precipitating the pain. He is continuing on tube feeds for now, expected to start a diet soon. Medications: Reviewed: Yes Vitals/I&O/Wt Last Vital Signs Temp 98.9 F 04/06/23 04:00 Pulse 114 H 04/06/23 08:00 Resp 18 04/06/23 08:00 BP 185/93 04/06/23 08:00 Pulse Ox 97 04/06/23 08:00 O2 Del Method Room Air 04/06/23 08:00 O2 Flow Rate 3 04/01/23 09:19 FiO2 2 03/29/23 07:48 04/05/23 04/06/23 04/06/23 22:59 06:59 14:59 Intake Total 1028 / 1078 1326 / 2404 Output Total 15 / Balance 1013 / 1063 1326 / 2389 Weight last 48 hrs Weight 101.469 kg Weight 101.605 kg Physical Exam Narrative: General: No acute distress, AO x3 HEENT: PERRLA, pupils bilaterally equal and reactive, pallors not present Chest: Normal vesicular breath sounds, no added sounds, equal good air entry bilaterally CVS: S1-S2 regular, no murmurs, no tachycardia, no gallops, no rubs Abdomen: Soft, celian over lower abdomen, surrounding erythema. EFREM drain in place. Clear serous drainage with some blood in it. No feculent material noted. Mild erythema developing over the left flank. Neuro: No focal deficits, no facial deformity, AO x3, power 5/5 in all limbs Urinary Catheter Management: Conteh: Cath Placed During This Visit: yes Reason for Continuing Indwelling Catheter: Accurate Measurement of Urinary Output in Critically Ill Patients Urinary Catheter Date of Insertion: 03/27/23 Urinary Catheter Time of Insertion: 19:10 Data 04/06/23 04:32 04/06/23 04:32 Micro: Microbiology 04/05/23 11:36 Blood Culture - Preliminary Blood NEGATIVE TO DATE 04/05/23 11:40 Blood Culture - Preliminary Blood NEGATIVE TO DATE 03/31/23 12:00 Blood Culture - Final Blood NO GROWTH AFTER 5 DAYS 03/31/23 12:07 Blood Culture - Final Blood NO GROWTH AFTER 5 DAYS A&P Assessment and plan (1) Bowel perforation: (2) ASHD (arteriosclerotic heart disease): (3) Diabetes 1.5, managed as type 2: (4) HTN (hypertension): (5) Hyperlipidemia: (6) Septic shock: (7) Acute renal failure: (8) Acute encephalopathy: (9) E coli bacteremia: (10) CHRISTY (obstructive sleep apnea): (11) Gram-positive bacteremia: (12) Acute respiratory failure with hypoxia: (13) Systolic CHF: (14) Atrial fibrillation with RVR: Plan # Fever Patient has a long hospital course for septic shock, perforated bowel and intra- abdominal abscess, was slowly recovering from these issues as outlined below, however now having increasing white blood cell count over past 3 days, spiked a fever to 101 Fahrenheit overnight. He is complaining of abdominal pain which is not adequately relieved by morphine. Worse on turning sides. Possibilities include worsening intra-abdominal abscess, we will repeat a CT of the abdomen and pelvis for interval change in size of the abscess. Most recently on CT performed on April 03, 2023 the abscess was stable. He has been on fungal coverage with fluconazole for the last 5 days for thrush therefore fungal component appears to be less likely. Patient has had several lines placed over the past few days, will check blood cultures, thus far blood cultures taken yesterday are negative to date. Most recently CT chest that showed improving bilateral effusions, he has been on room air. We will check CT of the chest to evaluate for any interval development of pneumonia which could explain his new fever. Check respiratory viral panel He had soft bowel movements overnight, C. difficile specimen had been collected yesterday and has been sent out to reference laboratory. We will start p.o. vancomycin 125 mg 4 times daily while results from C. difficile testing are pending. Antibiotics broadened to meropenem and vancomycin after having been de-escalated to Zosyn previously. Possiblly devloping cellulitis around incision site # Septic shock This was present on admission. Shock now resolved Related to discovery of a perforated colon during colonoscopy. CT imaging upon admission showed deep pelvic abscess measuring 3.9 cm. Follow- up CT 04/04 with overall stable size of abscess. Additional seroma underlying incision site Blood culture from 8/31 reported with E. coli and Bacteroides fragilis Follow-up blood cultures from March 31, 2023 thus far negative to date. He has been on appropriate antibiotic coverage based on susceptibility data. #Perforated bowel Status exploratory laparotomy, with repair of colotomy, post abdominal washout NGT in place, okay to use for meds Managed per general surgery swallow trial passed today, expected to start diet #Intra-abdominal abscess, as above Stable on serial follow up, not amenable to IR drainage manage conservatively with ongoing abx anticipate another 2 weeks course, final to be dependent on clinical and radiological progress #Intermittent A-fib with RVR - has been in sinus rhythm over the past week Amiodarone 200 p.o. two times daily, increase metoprolol 50 mg p.o. twice daily suspect that transient atrial fibrillation was related to sepsis -With his chronic anemia and hemoglobin dropped down to 5.0 in the recent past with suspected recent GI source of bleeding, do not believe patient will be a candidate for outpatient DOACs. # Acute hypoxic respiratory failure - now resolved Multifactorial,-Secondary to fluid overload from MAYTE on CKD and systolic CHF -Started hemodialysis with improvement in respiratory status -Pleural effusions have resolved , no consolidation # NSTEMI vs type II MN from demand supply mismatch related to sepsis. However cannot rule out ischemic etiology completely given that ejection fraction currently has dropped to 40 to 45% with mild global hypokinesia. Last stress test in May 2022 had shown a small sized fixed perfusion abnormality of mild severity in the basal to inferolateral lujan. He has been evaluated by cardiology as outpatient and medical management was opted in view of his CKD. Will defer intervention for now as patient unlikely to tolerate dual antiplatelet therapy if needed after cath with his severe anemia. Denies any current chest pain. # Obstructive sleep apnea, BiPAP at night time # Acute encephalopathy from sepsis and uremia, resolving, restarted hoem meds # Acute on chronic renal failure, with fluid overload Started hemodialysis on April 01, 2023, tolerating well DO NOT RESUSCITATE, patient's is okay with elective intubation if required Nutrition: Ng feeds ongoing, swallow trial Heparin for DVT prophylaxis Protonix for GI prophylaxis Attestations Medical Necessity Statement*: Per admitting note Coding Level of Care Code Acute Code for Chg Fwd Diagnoses Bowel perforation K63.1 ASHD (arteriosclerotic heart disease) I25.10 Diabetes 1.5, managed as type 2 E13.9 HTN (hypertension) I10 Hyperlipidemia E78.5 Septic shock A41.9; R65.21 Acute renal failure N17.9 Acute encephalopathy G93.40 E coli bacteremia R78.81; B96.20 CHRISTY (obstructive sleep apnea) G47.33 Gram-positive bacteremia R78.81 Acute respiratory failure with hypoxia J96.01 Systolic CHF I50.20 Atrial fibrillation with RVR I48.91
[2023-04-06] MEDS: meropenem 1,000 MG in sodium chloride 0.9% (plus) 50 ML 100 MG IV (14:19)
[2023-04-06] MEDS: heparin drip 25,000 UNIT/500 ML PREMIX 28.41 UNIT IV (16:57)
[2023-04-06 20:26] LABS: Partial Thromboplastin Time 45.9 SECONDS (23.9-36.7)
[2023-04-06] MEDS: metoprolol tartrate 25 mg Tablet 50 MG PO (21:07)
[2023-04-06] MEDS: quetiapine 100 mg Tablet PO (21:07)
[2023-04-06] MEDS: pantoprazole 40 mg SDV IVP (21:07)
[2023-04-06] MEDS: magnesium hydroxide 30 mL UDC PO (21:07)
[2023-04-06 21:28] LABS: Glucose Point of Care 188 mg/dL (70-110)
[2023-04-06 23:08] LABS: Glucose Point of Care 199 mg/dL (70-110)
[2023-04-07] VITALS (27 sets, daily range): BP systolic 121–194; BP diastolic 62–111; PULSE 79–116; RESP 16–26; TEMP 36.7–37; O2SAT 90–97
[2023-04-07] MEDS: meropenem 1,000 MG in sodium chloride 0.9% (plus) 50 ML 100 MG IV ×3 (00:26→23:10)
[2023-04-07] MEDS: HYDROmorphone 1 mg/mL INJ 1 mL IVP ×4 (01:11→21:01)
[2023-04-07 03:06] LABS: Basophils % 0.1 %; Eosinophils # 0.4 10^3/uL (0.0-0.8); Eosinophils % 2.2 %; Hematocrit 28.5 % (37-53); Lymphocytes # 1.4 10^3/uL (0.8-4.8); Lymphocytes % 7.5 %; Mean Corpuscular HGB Conc 31.2 g/dL (30-55); Mean Corpuscular Hemoglobin 28.9 pg (27-33); Mean Corpuscular Volume 92.5 fl (82-101); Mean Platelet Volume 10.8 fL (7.4-10.4); Monocytes # 1.7 10^3/uL (0.2-0.9); Monocytes % 8.7 %; Neutrophils # 15.17 10^3/uL (1.8-7.7); Neutrophils % 79.9 %; Nucleated Red Blood Cells % 0 %; Platelet Count 448 10^3/cmm (157-399); Red Blood Count 3.08 10^6/uL (3.85-5.65); Red Cell Distribution Width 14.6 % (12.1-15.1); White Blood Count 18.97 10^3/uL (3.29-11.43)
[2023-04-07 03:20] LABS: Partial Thromboplastin Time 65.1 SECONDS (23.9-36.7)
[2023-04-07 03:27] LABS: Alanine Aminotransferase < 5 U/L (0-41); Alkaline Phosphatase 122 U/L (40-130); Anion Gap 19.3 (5-19); Aspartate Amino Transferase 14 U/L (0-40); Blood Urea Nitrogen 74 mg/dL (8-23); Calcium 9.1 mg/dL (8.5-10.5); Carbon Dioxide 24 mmol/L (22-29); Chloride 99 mmol/L (98-107); Globulin 3.6 g/dL (1.3-4.6); Glucose 162 mg/dL (65-115); Osmolality Calculated 311 mOsm/kg (285-295); Potassium 4.3 mmol/L (3.5-5.1); Sodium 138 mmol/L (136-145); Total Bilirubin 0.4 mg/dL (0.15-1.2); Total Protein 6.6 g/dL (6.6-8.7)
[2023-04-07 07:31] LABS: Glucose Point of Care 155 mg/dL (70-110)
--- NOTE | 2023-04-07 09:00 | XR_ITS ---
WS: [id number] Exam: XR chest 1V portable [id number] Date/Time of Exam: 04/07/2023 9:02 AM Reason For Exam: sob Comparison 04/01/2023. Moderate size LEFT basal pleural effusion has developed with compressive atelectasis of the LEFT lowe r lobe. The RIGHT lung is clear. The lungs are fully inflated. Cardiomediastinal silhouette is unrema rkable. A right-sided double-lumen dialysis catheter is in place ending in the lower one third of the SVC near the cavoatrial junction. There is also a right-sided PICC line in place ending in the lower one third of the SVC. Bony structures are intact. Advanced DJD of the LEFT shoulder. Partially visua lized RIGHT humeral head prosthesis. IMPRESSION: 1. Development of moderate size LEFT basal pleural effusion with compressive atelectasis of the LEFT lower lobe since the prior study. 2. Right-sided dialysis catheter and PICC line both in satisfactory position.
--- NOTE | 2023-04-07 09:01 | US_ITS ---
WS: [id number] ULTRASOUND-GUIDED PARACENTESIS LEFT UPPER QUADRANT PERISPLENIC COLLECTION CLINICAL INFORMATION: left spleneic fluid collection COMPARISON: None. Procedure Informed consent: The risks, benefits, and alternatives of the procedure were discussed with the larry ent. Verbal and written consent was obtained. Timeout: A timeout was performed to confirm the correct patient, procedure, and site. Preparation: A suitable skin site was identified. The patient was prepped and draped in usual sterile fashion. Lidocaine 1% was used for local anesthesia. Catheter: 4 [place] One-step [employer] catheter. Side: LEFT upper quadrant. Fluid Volume: 50 ml Color: Bloody fluid Complications: None. IMPRESSION: Uncomplicated ultrasound-guided aspiration of the perisplenic collection with approximately 50 cc of bloody fluid aspirated. Fluid sent for requested diagnostic tests.
--- NOTE | 2023-04-07 09:03 | US_ITS ---
WS: [id number] ULTRASOUND-GUIDED THORACENTESIS CLINICAL INFORMATION: left pleurl effusion COMPARISON: None. PROCEDURE: Informed consent: The risks, benefits, and alternatives of the procedure were discussed with the larry ent. Verbal and written consent was obtained. Timeout: A timeout was performed to confirm the correct patient, procedure, and site. Site: LEFT chest Preparation: A suitable skin site was identified. The patient was prepped and draped in usual sterile fashion. Lidocaine 1% was used for local anesthesia. Catheter: 4 [place] One-Step catheter. Fluid Volume: 400 ml Color: Clear yellow Discarded safely. 50 cc sent to the laboratory for further analysis. Complications: None. IMPRESSION: 1. Uncomplicated ultrasound-guided thoracentesis with removal of 400 cc. 2. Portable radiograph demonstrates improved LEFT pleural effusion with compressive atelectasis LEFT lower lobe. No pneumothorax.
[2023-04-07] MEDS: metoprolol tartrate 25 mg Tablet 50 MG PO ×2 (09:38→20:53)
[2023-04-07] MEDS: carbidopa-levodopa 25-100mg Tablet 1 EACH PO ×2 (09:38→20:53)
[2023-04-07] MEDS: amiodarone 200 mg Tablet PO ×2 (09:38→18:54)
[2023-04-07] MEDS: buPROPion XL (24 HR) 150 mg Tablet PO (09:38)
[2023-04-07] MEDS: finasteride 5 mg Tablet PO (09:39)
[2023-04-07] MEDS: citalopram 20 mg Tablet 40 MG PO (09:39)
--- NOTE | 2023-04-07 09:47 | PC.OT ---
Addendum entered by BRIDGETTE Vazquez 04/07/23 09:49: medical procedure vs medical testing. Original Note: OT tx attempted. Pt busy with medical testing in room. Therapist will attempt again later today.
[2023-04-07 10:18] LABS: Partial Thromboplastin Time 43.1 SECONDS (23.9-36.7)
[2023-04-07 11:07] LABS: Vancomycin Random 23.3 ug/mL (20.0-40.0)
--- NOTE | 2023-04-07 11:16 | PM.PN ---
Subjective Subjective: NGT discontined denies any other complaints Medications: Reviewed: Yes Vitals/I&O/Wt Last Vital Signs Temp 98.0 F 04/07/23 07:47 Pulse 99 04/07/23 08:26 Resp 16 04/07/23 08:26 BP 152/72 04/07/23 05:00 Pulse Ox 96 04/07/23 08:26 O2 Del Method Room Air 04/07/23 08:26 O2 Flow Rate 3 04/01/23 09:19 FiO2 2 03/29/23 07:48 04/06/23 04/07/23 04/07/23 22:59 06:59 14:59 Intake Total 110.799 / 1410.799 439.201 / 439.201 Output Total 310 / 930 400 / 1330 Balance -199.201 / 480.799 -400 / 80.799 439.201 / 439.201 Weight last 48 hrs Weight 99.79 kg Weight 101.469 kg Physical Exam Narrative: awake , alert HEENT PEERLA + edema Extremity: NARRATIVE EXTREMITY EXAM: trace edema Urinary Catheter Management: Conteh: Cath Placed During This Visit: yes Reason for Continuing Indwelling Catheter: Accurate Measurement of Urinary Output in Critically Ill Patients Urinary Catheter Date of Insertion: 03/27/23 Urinary Catheter Time of Insertion: 19:10 Data 04/07/23 03:00 04/07/23 03:00 Micro: Microbiology 04/05/23 11:36 Blood Culture - Preliminary Blood NEGATIVE TO DATE 04/05/23 11:40 Blood Culture - Preliminary Blood NEGATIVE TO DATE A&P Assessment and plan (1) MAYTE (acute kidney injury): Plan 1. Acute kidney injury due to sepsis, 2. E.coli (pansensitive) sepsis s/p repair of perforated sigmoid colon 3. Increased anion gap metabolic acidosis due to lactate and renal impairment. Resolved with sodium bicarbonate infusion. 4. new onset atrial fibrillation 5. 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 possible polycystic kidney disease, baseline eGFR 15 ml/min 6. Anemia, history of recent transfusion, iron deficient, received transfusion pRBC 7. History of diabetes, hypertension, coronary artery disease 8. Hypokalemia, replace IV (NPO, NGT)and hD Recommend: Avoid nephrotoxins. Discussed in detail with at bedside. s/p PC placement on 9/5. , HD started [employer] work to arrange for out pt HD , can do twice /week HD plan for HD in AM Attestations Medical Necessity Statement*: per medicine team Coding Level of Care Code Acute Code for Chg Fwd Diagnoses MAYTE (acute kidney injury) N17.9
[2023-04-07] MEDS: ALPRAZolam 0.5 mg Tablet PO ×2 (13:02→23:10)
--- NOTE | 2023-04-07 14:40 | P.PN_ITS ---
Subjective Subjective: patient was seen this morning He is alert to person, to place, not to time, but can recognize at bedside, he is able to joke, his only complaint is flank pain, no fevers, no chills, no nausea, no vomiting With patient's at bedside I discussed his elevated white count at over 18,000, he remains afebrile, so far his repeat blood cultures remain negative Chest x-ray shows a left pleural effusion, also on the chest CT, abdominal CT shows that he has a perisplenic collection of fluid The question is is that is transudative versus exudative, this is an abscess that needs to be drained Spoke to general surgery, spoke to Dr. Light, recommended discussing with radiology about possible drainage Spoke to Dr. Martinez in detail, plan for now is to do a needle drainage of perisplenic fluid collection, and left pleural effusion, will see if it is transudative versus exudative If indeed it is exudative, or if there is any evidence of abscess or infectious process then patient will need perisplenic drain placed Spoke this in detail with patient and his , discussed risk and benefits, they voiced understanding, all questions answered, agreed to proceed Vitals/I&O/Wt Last Vital Signs Temp 98.0 F 04/07/23 07:47 Pulse 99 04/07/23 12:00 Resp 16 04/07/23 12:00 BP 152/72 04/07/23 05:00 Pulse Ox 96 04/07/23 08:26 O2 Del Method Room Air 04/07/23 08:26 O2 Flow Rate 3 04/01/23 09:19 FiO2 2 03/29/23 07:48 04/06/23 04/07/23 04/07/23 22:59 06:59 14:59 Intake Total 110.799 / 8578.613 3932.201 / 1639.201 Output Total 310 / 930 400 / 1330 715 / 715 Balance -199.201 / 480.799 -400 / 80.799 924.201 / 924.201 Weight last 48 hrs Weight 99.79 kg Weight 101.469 kg Physical Exam Const: COMMON NORMALS: no acute distress ORIENTATION/CONSCIOUSNESS: Yes awake, Yes oriented to person and Yes oriented to place Resp: COMMON NORMALS: normal respiratory effort, No retractions, No use of accessory muscles and clear to auscultation bilaterally AUSCULTATION: clear to auscultation bilaterally Cardio: COMMON NORMALS: regular rate, regular rhythm, S1 normal heart sound present and S2 normal heart sound present RATE: regular rate RHYTHM: regular rhythm HEART SOUNDS: S1 normal heart sound present and S2 normal heart sound present GI: COMMON NORMALS: Normal to inspection, nondistended, normoactive bowel sounds present and non-tender OTHER: Surgical site, surgical sutures in place, clean and dry, lower fifth sutures with surrounding erythema Extremity: COMMON NORMALS: no pedal edema Neuro: SENSORIUM/ORIENTATION: Yes oriented to person and Yes oriented to place Psych: COMMON NORMALS: mental status grossly normal Urinary Catheter Management: Conteh: Cath Placed During This Visit: yes Reason for Continuing Indwelling Catheter: Accurate Measurement of Urinary Output in Critically Ill Patients Urinary Catheter Date of Insertion: 03/27/23 Urinary Catheter Time of Insertion: 19:10 Data 04/07/23 03:00 04/07/23 03:00 Micro: Microbiology 04/05/23 11:36 Blood Culture - Preliminary Blood NEGATIVE TO DATE 04/05/23 11:40 Blood Culture - Preliminary Blood NEGATIVE TO DATE A&P Assessment and plan (1) Bowel perforation: (2) ASHD (arteriosclerotic heart disease): (3) Diabetes 1.5, managed as type 2: (4) HTN (hypertension): (5) Hyperlipidemia: (6) Septic shock: (7) Acute renal failure: (8) Acute encephalopathy: (9) E coli bacteremia: (10) CHRISTY (obstructive sleep apnea): (11) Gram-positive bacteremia: (12) Acute respiratory failure with hypoxia: (13) Systolic CHF: (14) Atrial fibrillation with RVR: (15) Intra-abdominal abscess: (16) Pleural effusion, left: (17) Iliac DVT (deep venous thrombosis): Plan # Fever with persistent leukocytosis Patient has a long hospital course for septic shock, perforated bowel and intra- abdominal abscess, was slowly recovering from these issues as outlined below, however now having increasing white blood cell count over past few days, has been afebrile for the last 48 hours -Patient has a left pleural effusion, and left perisplenic fluid collection exudative versus transudative, concerns for possible abscess, plans on needle drainage, follow results, decision to place perisplenic drain based on clinical progress and results -Patient has tunneled dialysis catheter in place, possible source of infection? We will follow blood cultures -Has a right PICC line in place, possible source of infection? We will follow blood cultures, consider line holiday -So far repeat blood cultures negative -Has received 5 days of fungal coverage Patient has had several lines placed over the past few days, will check blood cultures, thus far blood cultures taken yesterday are negative to date. -Respiratory viral panel negative -Chest CT no new infiltrate but does have a left lung compressive atelectasis, currently on room air -Continue p.o. vancomycin 125 mg 4 times daily while results from C. difficile testing are pending. -Antibiotics broadened to meropenem and vancomycin after having been de- escalated to Zosyn previously. -Possiblly devloping cellulitis around incision site #Left pleural effusion -IR consulted for drainage thoracocentesis #Left perisplenic fluid collection -IR consulted for drainage -Possible drain placement in the future based on results -Concerns for transudative versus exudative, possible abscess? #Intra-abdominal abscess -?There is history of abdominal abscess and appears similar in location between the rectum and bladder margin. There is some punctate air within similar. The greatest dimensions currently are approximately 5.3 x 3.7 x 5.6 cm. This appears slightly larger overall. This also abuts the adjacent bowel margin -manage conservatively with ongoing abx anticipate another 2 weeks course, final to be dependent on clinical and r adiological progress #Seroma at incision site # Septic shock Resolved Related to discovery of a perforated colon during colonoscopy.ite Blood culture from 03/27 reported with E. coli and Bacteroides fragilis Follow-up blood cultures from March 31, 2023 thus far negative to date. He has been on appropriate antibiotic coverage based on susceptibility data. #Perforated bowel Status exploratory laparotomy, with repair of colotomy, post abdominal washout Managed per general surgery swallow trial passed today, expected to start diet #Intermittent A-fib with RVR - has been in sinus rhythm over the past week Amiodarone 200 p.o. two times daily, increase metoprolol 50 mg p.o. twice daily suspect that transient atrial fibrillation was related to sepsis -With his chronic anemia and hemoglobin dropped down to 5.0 in the recent past with suspected recent GI source of bleeding, do not believe patient will be a candidate for outpatient DOACs. # Acute hypoxic respiratory failure - now resolved Multifactorial,-Secondary to fluid overload from MAYTE on CKD and systolic CHF -Started hemodialysis with improvement in respiratory status -Pleural effusions have resolved , no consolidation # NSTEMI vs type II VA from demand supply mismatch related to sepsis. However cannot rule out ischemic etiology completely given that ejection fraction shanique kaiser has dropped to 40 to 45% with mild global hypokinesia. Last stress test in May 2022 had shown a small sized fixed perfusion abnormality of mild severity in the basal to inferolateral lujan. He has been evaluated by cardiology as outpatient and medical management was opted in view of his CKD. Will defer intervention for now as patient unlikely to tolerate dual antiplatelet therapy if needed after cath with his severe anemia. Denies any current chest pain. # Obstructive sleep apnea, BiPAP at night time # Acute encephalopathy from sepsis and uremia, resolving, # Acute on chronic renal failure, with fluid overload Started hemodialysis on April 01, 2023, tolerating well #Right external iliac femoral venous junction DVT? -CT of the abdomen showed There is some patchy filling defect asymmetry demonstrated about the right external iliac femoral venous junction and could represent some early thrombosis. Consider lower extremity venous Doppler ultrasound. -Heparin drip, on hold as there is plans on paracentesis, resume thereafter -Venous ultrasound ordered DO NOT RESUSCITATE, patient's is okay with elective intubation if required Nutrition: Ng feeds ongoing, swallow trial Heparin for DVT prophylaxis Protonix for GI prophylaxis With patient's at bedside I discussed his elevated white count at over 18,000, he remains afebrile, so far his repeat blood cultures remain negative Chest x-ray shows a left pleural effusion, also on the chest CT, abdominal CT shows that he has a perisplenic collection of fluid The question is is that is transudative versus exudative, this is an abscess that needs to be drained Spoke to general surgery, spoke to Dr. Light, recommended discussing with radiology about possible drainage Spoke to Dr. Martinez in detail, plan for now is to do a needle drainage of perisplenic fluid collection, and left pleural effusion, will see if it is transudative versus exudative If indeed it is exudative, or if there is any evidence of abscess or infectious process then patient will need perisplenic drain placed Spoke this in detail with patient and his , discussed risk and benefits, they voiced understanding, all questions answered, agreed to proceed -Order checked her x-ray, of the chest, ordered ultrasound thoracocentesis, paracentesis, follow blood cultures, reviewed blood work, reviewed chart in detail Attestations Medical Necessity Statement*: Patient requires hospitalization for perisplenic fluid collection, requiring drainage, left pleural effusion, external iliac DVT concerns, requiring heparin drip, intra-abdominal abscess, perforated colon requiring IV antibiotics, persistent leukocytosis Diagnoses Bowel perforation K63.1 ASHD (arteriosclerotic heart disease) I25.10 Diabetes 1.5, managed as type 2 E13.9 HTN (hypertension) I10 Hyperlipidemia E78.5 Septic shock A41.9; R65.21 Acute renal failure N17.9 Acute encephalopathy G93.40 E coli bacteremia R78.81; B96.20 CHRISTY (obstructive sleep apnea) G47.33 Gram-positive bacteremia R78.81 Acute respiratory failure with hypoxia J96.01 Systolic CHF I50.20 Atrial fibrillation with RVR I48.91 Intra-abdominal abscess K65.1 Pleural effusion, left J90 Iliac DVT (deep venous thrombosis) I82.429
--- NOTE | 2023-04-07 14:58 | USR_ITS ---
PROCEDURE INFORMATION: Exam: US Duplex Lower Extremity Veins, Bilateral Exam date and time: 04/07/2023 7:58 PM Age: 77 years old Clinical indication: Edema, localized; Lower extremity, right; Prior surgery; Surgery date: <1 month; Surgery type: Bowel surgery 03/27/23; Additional info: Fever, possible right iliac dvt TECHNIQUE: Imaging protocol: Real-time duplex ultrasound of the bilateral extremities with 2-D white scale, color Doppler flow and spectral waveform analysis including responses to compression and other maneuvers (when performed) with image documentation. Complete exam focused on the lower extremity veins. COMPARISON: [place] [id number] 03/29/2023 10:45 AM FINDINGS: Right deep veins: Partial filling of right common femoral and right external iliac vein. Femoral, profunda femoris, popliteal veins are patent. Left deep veins: Unremarkable. The common femoral, femoral, proximal profunda femoral and popliteal veins are patent without thrombus. Normal Doppler waveforms. Normal compressibility and/or augmentation response. Superficial veins: Bilateral saphenofemoral junctions are patent without thrombus. Soft tissues: Unremarkable. US/[place] [id number] IMPRESSION: Positive for DVT in the right lower extremity with partial thrombus in right external iliac and common femoral vein.
[2023-04-07 15:33] LABS: Clostridium Difficile PCR DETECTED (NOT DETECTED); Methicillin-Resist S.aureu PCR NOT DETECTED (NOT DETECTED)
--- NOTE | 2023-04-07 16:14 | XRR_ITS ---
PROCEDURE INFORMATION: Exam: XR Chest Exam date and time: 04/07/2023 5:00 PM Age: 77 years old Clinical indication: Pain; Other: Post biopsy TECHNIQUE: Imaging protocol: Radiologic exam of the chest. Views: 1 view. COMPARISON: CR XR chest 1V portable [id number] 04/07/2023 9:08 AM FINDINGS: Follow-up post biopsy chest x-ray demonstrates no pneumothorax or other new findings. Essentially unchanged chest x-ray when compared to today's earlier exam. XR/XR chest 1V portable [id number] IMPRESSION: As above.
--- NOTE | 2023-04-07 16:14 | PM.PN ---
Subjective Subjective: Patient seen and examined. He is currently getting a thoracentesis by radiology. Pain controlled and having bowel movements Vitals/I&O/Wt Last Vital Signs Temp 98.0 F 04/07/23 07:47 Pulse 86 04/07/23 14:00 Resp 19 H 04/07/23 14:56 BP 162/86 04/07/23 14:00 Pulse Ox 94 04/07/23 14:56 O2 Del Method Room Air 04/07/23 08:26 O2 Flow Rate 3 04/01/23 09:19 FiO2 2 03/29/23 07:48 04/07/23 04/07/23 04/07/23 06:59 14:59 22:59 Intake Total 1639.201 / 1639.201 Output Total 400 / 1330 715 / 715 Balance -400 / 80.799 924.201 / 924.201 Weight last 48 hrs Weight 220 lb Weight 223 lb 11.2 oz Physical Exam Narrative: Abdomen: Soft, distended, diffuse mild tenderness to palpation, no guarding rebound or masses Incision intact, some erythema on the inferior aspect of the incision without exudate EFREM serous sanguinous Urinary Catheter Management: Conteh: Cath Placed During This Visit: yes Reason for Continuing Indwelling Catheter: Accurate Measurement of Urinary Output in Critically Ill Patients Urinary Catheter Date of Insertion: 03/27/23 Urinary Catheter Time of Insertion: 19:10 Data 04/07/23 03:00 04/07/23 03:00 Micro: Microbiology 04/05/23 11:36 Blood Culture - Preliminary Blood NEGATIVE TO DATE 04/05/23 11:40 Blood Culture - Preliminary Blood NEGATIVE TO DATE A&P Assessment and plan (1) Bowel perforation: (2) Acute renal failure: Plan Postoperative day #11 status post exploratory laparotomy with primary repair of colotomy which occurred during a colonoscopy at an outside facility Status post permacath placement Thoracentesis being performed currently I had a peer to peer with the LTAC physician today who said that we will need to request LTAC admission again when the patient is ready for transfer Hospitalist following-appreciate input Attestations Medical Necessity Statement*: Patient quires least 1 more night in the hospital for ICU management following colon perforation Coding Level of Care Code Acute Code for Chg Fwd Diagnoses Bowel perforation K63.1 Acute renal failure N17.9
[2023-04-07 17:32] LABS: Cyto Order Verification Order Verified
[2023-04-07 17:39] LABS: Hematocrit Body Fluid 0.1 %
[2023-04-07 17:41] LABS: Body Fluid Polynuclear #Cells 2.237; Body Fluid WBC 2303 /uL; Monocytes # Body Fluid 0.066
[2023-04-07 17:50] LABS: Body Fluid WBC 0 /uL
[2023-04-07 18:02] LABS: Albumin Body Fluid 2.6 g/dL; Creatinine Body Fluid 5.11 (0.7-1.2); PATH Referral YES
[2023-04-07 18:04] LABS: Fluid Laterality LEFT PLEURAL FLUID
[2023-04-07 18:10] LABS: Color, Body Fluid YELLOW
[2023-04-07 18:12] LABS: Apprearance, Body Fluid CLOUDY
[2023-04-07 18:13] LABS: Apprearance, Body Fluid BLOODY; Color, Body Fluid RED
[2023-04-07 18:42] LABS: Amylase Body Fluid 91 U/L; Cholesterol Body Fluid 79 mg/dL (0-200); Fluid Alkaline Phos. 20 IU/L; Total Protein Body Fluid 3.7 g/dL; Triglycerides Body Fluid 118 mg/dL (0-150)
[2023-04-07 18:43] LABS: PATH Referral YES
[2023-04-07 18:48] LABS: Cyto Order Verification No Order
[2023-04-07] MEDS: quetiapine 100 mg Tablet PO (20:53)
[2023-04-07] MEDS: pantoprazole 40 mg SDV IVP (20:54)
[2023-04-07] MEDS: magnesium hydroxide 30 mL UDC PO (20:54)
[2023-04-07 21:55] LABS: Glucose Point of Care 201 mg/dL (70-110)
[2023-04-07] MEDS: heparin drip 25,000 UNIT/500 ML PREMIX 30 UNIT IV (22:19)
[2023-04-08] VITALS (29 sets, daily range): BP systolic 96–174; BP diastolic 44–91; PULSE 80–108; RESP 16–28; TEMP 36.5–36.7; O2SAT 80–95
[2023-04-08 00:21] LABS: Partial Thromboplastin Time 41.9 SECONDS (23.9-36.7)
[2023-04-08 05:17] LABS: Basophils % 0.2 %; Eosinophils # 0.5 10^3/uL (0.0-0.8); Hematocrit 28.7 % (37-53); Lymphocytes # 1.4 10^3/uL (0.8-4.8); Lymphocytes % 9.1 %; Mean Corpuscular HGB Conc 30.7 g/dL (30-55); Mean Corpuscular Hemoglobin 28.8 pg (27-33); Mean Corpuscular Volume 93.8 fl (82-101); Mean Platelet Volume 10.8 fL (7.4-10.4); Monocytes # 1.7 10^3/uL (0.2-0.9); Monocytes % 10.5 %; Neutrophils % 75.9 %; Nucleated Red Blood Cells % 0 %; Platelet Count 640 10^3/cmm (157-399); Red Blood Count 3.06 10^6/uL (3.85-5.65); Red Cell Distribution Width 14.6 % (12.1-15.1); White Blood Count 15.91 10^3/uL (3.29-11.43)
[2023-04-08 05:28] LABS: INR 1.09 (0.8-1.2)
[2023-04-08 05:42] LABS: NT Pro B Type Natriuretic Pept 3887 pg/mL (0-450)
[2023-04-08 05:44] LABS: Alanine Aminotransferase < 5 U/L (0-41); Albumin Level 3.2 g/dL (3.5-5.2); Alkaline Phosphatase 116 U/L (40-130); Anion Gap 19.3 (5-19); Aspartate Amino Transferase 18 U/L (0-40); Blood Urea Nitrogen 74 mg/dL (8-23); Calcium 9.4 mg/dL (8.5-10.5); Carbon Dioxide 22 mmol/L (22-29); Chloride 102 mmol/L (98-107); Globulin 3.5 g/dL (1.3-4.6); Glucose 129 mg/dL (65-115); Magnesium 2.6 mg/dL (1.7-2.3); Osmolality Calculated 312 mOsm/kg (285-295); Phosphorus 6.6 mg/dL (2.5-4.5); Potassium 4.3 mmol/L (3.5-5.1); Sodium 139 mmol/L (136-145); Total Bilirubin 0.3 mg/dL (0.15-1.2); Total Protein 6.7 g/dL (6.6-8.7)
[2023-04-08 05:49] LABS: Vancomycin Random 16.6 ug/mL (20.0-40.0)
[2023-04-08 06:40] LABS: Partial Thromboplastin Time 39.1 SECONDS (23.9-36.7)
--- NOTE | 2023-04-08 07:00 | XRR_ITS ---
PROCEDURE INFORMATION: Exam: XR Chest Exam date and time: 04/08/2023 6:55 AM Age: 77 years old Clinical indication: Shortness of breath; Additional info: SOB TECHNIQUE: Imaging protocol: Radiologic exam of the chest. Views: 1 view. COMPARISON: CR (CHEST, ) 04/07/2023 5:00 PM FINDINGS: Tubes, catheters and devices: There is a right subclavian approach dual lumen central venous catheter again seen projecting to the SVC/right atrium. Lungs: There is grossly stable left lower lobe infiltrate and left pleural effusion. Pleural spaces: There is no pneumothorax. Heart/Mediastinum: The heart size is not well assessed. Bones/joints: Unremarkable. XR/XR chest 1V portable [id number] IMPRESSION: Grossly stable left lower lobe infiltrate and left pleural effusion.
--- NOTE | 2023-04-08 08:09 | US_ITS ---
WS: [id number] Limited abdomen ultrasound. HISTORY: Possible splenic laceration. COMPARISON: 04/07/2023 and 04/06/2023. Complex material surrounding the spleen. Low-level echoes throughout the perisplenic fluid. Blood was aspirated from around the spleen on 04/07/2023. The amount of perisplenic fluid is less than on 2022. The actual spleen itself is difficult to visualize. Cannot visualized the spleen well enough to exclude a laceration. The amount of perisplenic blood is small and decreased. IMPRESSION: 1. Perisplenic fluid most consistent with blood products. Bloody fluid was aspirated by ultrasound on 04/07/2023. The extent of the perisplenic hematoma is smaller than on the prior study.
[2023-04-08 08:16] LABS: Glucose Point of Care 133 mg/dL (70-110)
[2023-04-08] MEDS: metoprolol tartrate 25 mg Tablet 50 MG PO ×2 (08:24→21:03)
[2023-04-08] MEDS: citalopram 20 mg Tablet 40 MG PO (08:24)
[2023-04-08] MEDS: buPROPion XL (24 HR) 150 mg Tablet PO (08:24)
[2023-04-08] MEDS: finasteride 5 mg Tablet PO (08:24)
[2023-04-08] MEDS: amiodarone 200 mg Tablet PO ×2 (08:24→17:26)
[2023-04-08] MEDS: carbidopa-levodopa 25-100mg Tablet 1 EACH PO ×2 (08:26→21:03)
[2023-04-08 08:43] LABS: Lactate Dehydrogenase 239 U/L (135-225)
[2023-04-08 09:31] LABS: Hepatitis B Core AB, Total Non-Reactive (Nonreactive); Hepatitis B Surface AB 3.5 (11.5-1000); Hepatitis B Surface Antigen Non-Reactive (Nonreactive)
--- NOTE | 2023-04-08 09:48 | PM.PN ---
Subjective Subjective: no new complaints Medications: Reviewed: Yes Vitals/I&O/Wt Last Vital Signs Temp 97.7 F 04/08/23 08:55 Pulse 105 H 04/08/23 09:00 Resp 19 H 04/08/23 09:00 BP 153/72 04/08/23 09:00 Pulse Ox 93 04/08/23 08:00 O2 Del Method Room Air 04/08/23 07:59 O2 Flow Rate 2 04/07/23 20:00 FiO2 2 03/29/23 07:48 04/07/23 04/08/23 04/08/23 22:59 06:59 14:59 Intake Total 50 / 1739.201 332.733 / 2071.934 300 / 300 Output Total 200 / 915 20 / 935 Balance -150 / 824.201 312.733 / 1136.934 300 / 300 Weight last 48 hrs Weight 98.231 kg Weight 99.79 kg Physical Exam Narrative: awake , alert HEENT PEERLA + edema Extremity: NARRATIVE EXTREMITY EXAM: trace edema Urinary Catheter Management: Conteh: Cath Placed During This Visit: yes Reason for Continuing Indwelling Catheter: Accurate Measurement of Urinary Output in Critically Ill Patients Urinary Catheter Date of Insertion: 03/27/23 Urinary Catheter Time of Insertion: 19:10 Data 04/08/23 03:55 04/08/23 03:55 Micro: Microbiology 04/07/23 16:20 Gram Stain - Final Pleural Fluid 04/07/23 16:20 Gram Stain - Final Peritoneal Fluid A&P Assessment and plan (1) MAYTE (acute kidney injury): Plan 1. Acute kidney injury due to sepsis, 2. E.coli (pansensitive) sepsis s/p repair of perforated sigmoid colon 3. Increased anion gap metabolic acidosis due to lactate and renal impairment. Resolved with sodium bicarbonate infusion. 4. new onset atrial fibrillation 5. 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 possible polycystic kidney disease, baseline eGFR 15 ml/min 6. Anemia, history of recent transfusion, iron deficient, received transfusion pRBC 7. History of diabetes, hypertension, coronary artery disease Recommend: Avoid nephrotoxins. Discussed in detail with at bedside. s/p PC placement on 04/01. , HD started [facility] work to arrange for out pt HD , can do twice /week HD HD today Attestations Medical Necessity Statement*: per medicine team Coding Level of Care Code Acute Code for Chg Fwd Diagnoses MAYTE (acute kidney injury) N17.9
--- NOTE | 2023-04-08 09:57 | PC.OT ---
OT tx attempted at 0915. Pt had just started dialysis. Therapist will attempt again later today if possible.
[2023-04-08 11:53] LABS: Glucose Point of Care 109 mg/dL (70-110)
[2023-04-08] MEDS: meropenem 1,000 MG in sodium chloride 0.9% (plus) 50 ML 100 MG IV (12:15)
[2023-04-08] MEDS: vancomycin 1,000 MG in sodium chloride 0.9% 250 ML 250 MG IV (12:48)
[2023-04-08 13:31] LABS: Partial Thromboplastin Time 57.4 SECONDS (23.9-36.7)
[2023-04-08] MEDS: ALPRAZolam 0.5 mg Tablet PO ×2 (13:54→21:54)
--- NOTE | 2023-04-08 15:15 | P.PN_ITS ---
Subjective Subjective: - Patient was seen this morning - is at bedside -He is alert to person, to place, not to time, he can follow commands -Does have intermittent episodes of confusion such as pulling on lines, but is redirectable, no significant episodes of agitation -I had extensive discussion with patient's at bedside and with patient -I am waiting on the results from his thoracocentesis, but I suspect it to transudative -His perisplenic fluid, 50 cc of blood were removed, perisplenic fluid collection has been present since his initial CT on the , no falls, no injuries, no trauma reported, we will continue to monitor, will do an ultrasound of the spleen, I spoke to general surgery no acute interventions, will monitor for now -Patient does have an acute DVT of the right lower extremity, we will have to reinstitute his heparin drip and monitor hemoglobin closely, -His white count has decreased to 15,000, remains afebrile, his blood cultures so far has been unremarkable we will follow his pleural fluid studies but so far no growth, in addition to his perisplenic fluid cultures have been no growth so far - wants for us to work on placing him at a detention facility instead of LTAC facility, will discuss with case management Vitals/I&O/Wt Last Vital Signs Temp 98.1 F 04/08/23 13:22 Pulse 94 04/08/23 13:22 Resp 27 H 04/08/23 13:22 BP 96/73 04/08/23 13:22 Pulse Ox 92 04/08/23 11:00 O2 Del Method Room Air 04/08/23 07:59 O2 Flow Rate 2 04/07/23 20:00 FiO2 2 03/29/23 07:48 04/08/23 04/08/23 04/08/23 06:59 14:59 22:59 Intake Total 332.733 / 2071.934 600 / 600 Output Total 2300 / 2300 Balance 312.733 / 1136.934 -1700 / -1700 Weight last 48 hrs Weight 97.1 kg Weight 98.231 kg Weight 99.79 kg Physical Exam Const: COMMON NORMALS: no acute distress HENMT: COMMON NORMALS: normocephalic HEAD & SCALP: normocephalic Resp: COMMON NORMALS: normal respiratory effort, No retractions, No use of accessory muscles and clear to auscultation bilaterally AUSCULTATION: clear to auscultation bilaterally Cardio: COMMON NORMALS: regular rate, regular rhythm, S1 normal heart sound present and S2 normal heart sound present RATE: regular rate RHYTHM: regular rhythm HEART SOUNDS: S1 normal heart sound present and S2 normal heart sound present GI: COMMON NORMALS: Normal to inspection, nondistended, normoactive bowel sounds present and non-tender OTHER: Surgical sutures, mild erythema, inferior sutures, EFREM drain in place Extremity: COMMON NORMALS: no pedal edema Psych: COMMON NORMALS: mental status grossly normal Urinary Catheter Management: Conteh: Cath Placed During This Visit: yes Reason for Continuing Indwelling Catheter: Accurate Measurement of Urinary Outpu t in Critically Ill Patients Urinary Catheter Date of Insertion: 03/27/23 Urinary Catheter Time of Insertion: 19:10 Data 04/08/23 03:55 04/08/23 03:55 Micro: Microbiology 04/07/23 16:20 Gram Stain - Final Peritoneal Fluid Body Fluid Culture - Preliminary 04/07/23 16:20 Gram Stain - Final Pleural Fluid Body Fluid Culture - Preliminary A&P Assessment and plan (1) Bowel perforation: (2) ASHD (arteriosclerotic heart disease): (3) Diabetes 1.5, managed as type 2: (4) HTN (hypertension): (5) Hyperlipidemia: (6) Septic shock: (7) Acute renal failure: (8) Acute encephalopathy: (9) E coli bacteremia: (10) CHRISTY (obstructive sleep apnea): (11) Gram-positive bacteremia: (12) Acute respiratory failure with hypoxia: (13) Systolic CHF: (14) Atrial fibrillation with RVR: (15) Intra-abdominal abscess: (16) Pleural effusion, left: (17) Iliac DVT (deep venous thrombosis): (18) C. difficile colitis: (19) Right leg DVT: Plan # Fever with persistent leukocytosis -Remains afebrile for the last 72 hours, leukocytosis improving patient has a long hospital course for septic shock, perforated bowel and intra-abdominal abscess, was slowly recovering from these issues as outlined below, however now having increasing white blood cell count over past few days, has been afebrile for the last 48 hours -Patient has a left pleural effusion, no growth so far -left perisplenic fluid collection exudative versus transudative, concerns for possible abscess, plans on needle drainage, follow results, decision to place perisplenic drain based on clinical progress and results -Patient has tunneled dialysis catheter in place, possible source of infection? We will follow blood cultures -Has a right PICC line in place, possible source of infection? We will follow blood cultures, consider line holiday based on clinical progress -So far repeat blood cultures negative -Has received 5 days of fungal coverage Patient has had several lines placed over the past few days, will check blood cultures, thus far blood cultures taken yesterday are negative to date. -Respiratory viral panel negative -Chest CT no new infiltrate but does have a left lung compressive atelectasis, currently on room air -c diff vancomycin 125 mg 4 times daily while results from C. difficile testing are pending. -Antibiotics broadened to meropenem and vancomycin after having been de- escalated to Zosyn previously. -will likely dc on 6 weeks of invanz, stop date -Possiblly devloping cellulitis around incision site, improving #Left pleural effusion -Status post drainage, 400 cc removed, clear, yellow, -LDH 2556, TP 3.7 -no growth so far -few wbc #Left perisplenic fluid collection, blood -50cc blood removed -no growth so far # c diff colitis -coutinue po vancomycin #Intra-abdominal abscess -?There is history of abdominal abscess and appears similar in location between the rectum and bladder margin. There is some punctate air within similar. The greatest dimensions currently are approximately 5.3 x 3.7 x 5.6 cm. This appears slightly larger overall. This also abuts the adjacent bowel margin -manage conservatively with ongoing abx #Seroma at incision site # Septic shock Resolved Related to discovery of a perforated colon during colonoscopy.ite Blood culture from 03/27 reported with E. coli and Bacteroides fragilis Follow-up blood cultures from March 31, 2023 thus far negative to date. He has been on appropriate antibiotic coverage based on susceptibility data. #Perforated bowel Status exploratory laparotomy, with repair of colotomy, post abdominal washout Managed per general surgery swallow trial passed today, expected to start diet #Intermittent A-fib with RVR - has been in sinus rhythm over the past week Amiodarone 200 p.o. two times daily, increase metoprolol 50 mg p.o. twice daily suspect that transient atrial fibrillation was related to sepsis -With his chronic anemia and hemoglobin dropped down to 5.0 in the recent past with suspected recent GI source of bleeding, do not believe patient will be a candidate for outpatient DOACs. # Acute hypoxic respiratory failure - now resolved Multifactorial,-Secondary to fluid overload from MAYTE on CKD and systolic CHF -Started hemodialysis with improvement in respiratory status -Pleural effusions have resolved , no consolidation # NSTEMI vs type II MD from demand supply mismatch related to sepsis. However cannot rule out ischemic etiology completely given that ejection fraction currently has dropped to 40 to 45% with mild global hypokinesia. Last stress test in May 2022 had shown a small sized fixed perfusion abnormality of mild severity in the basal to inferolateral lujan. He has been evaluated by cardiology as outpatient and medical management was opted in view of his CKD. # Obstructive sleep apnea, BiPAP at night time # Acute encephalopathy from sepsis and uremia, resolving, # Acute on chronic renal failure, with fluid overload Started hemodialysis on April 01, 2023, tolerating well #Right external iliac femoral venous junction DVT/RLE DVT -CT of the abdomen showed There is some patchy filling defect asymmetry demonstrated about the right external iliac femoral venous junction and could represent some early thrombosis. Consider lower extremity venous Doppler ultrasound. -Heparin drip -IMPRESSION: Positive for DVT in the right lower extremity with partial thrombus in right external iliac and common femoral vein. Encephalopathy -Monitor mentation -Likely secondary bacteremia, C. difficile, DVT, ICU delirium DO NOT RESUSCITATE, patient's is okay with elective intubation if required Nutrition: Ng feeds ongoing, swallow trial Heparin for DVT prophylaxis Protonix for GI prophylaxis - Patient was seen this morning - is at bedside -He is alert to person, to place, not to time, he can follow commands -Does have intermittent episodes of confusion such as pulling on lines, but is redirectable, no significant episodes of agitation -I had extensive discussion with patient's at bedside and with patient -I am waiting on the results from his thoracocentesis, but I suspect it to transudative -His perisplenic fluid, 50 cc of blood were removed, perisplenic fluid collection has been present since his initial CT on the , no falls, no injuries, no trauma reported, we will continue to monitor, will do an ultrasound of the spleen, I spoke to general surgery no acute interventions, will monitor for now -Patient does have an acute DVT of the right lower extremity, we will have to reinstitute his heparin drip and monitor hemoglobin closely, -His white count has decreased to 15,000, remains afebrile, his blood cultures so far has been unremarkable we will follow his pleural fluid studies but so far no growth, in addition to his perisplenic fluid cultures have been no growth so far - wants for us to work on placing him at a detention facility instead of LTAC facility, will discuss with case management Attestations Medical Necessity Statement*: Patient requires hospitalization for abdominal abscess, bacteremia, right lower extremity DVT, C. difficile colitis, perforated colon, status post surgery, Diagnoses Bowel perforation K63.1 ASHD (arteriosclerotic heart disease) 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 difficile colitis A04.72 Right leg DVT I82.401
--- NOTE | 2023-04-08 16:07 | PM.PN ---
Subjective Subjective: Patient seen and examined. He continues to tolerate a regular diet and have bowel movements. Vitals/I&O/Wt Last Vital Signs Temp 98.1 F 04/08/23 13:22 Pulse 94 04/08/23 13:22 Resp 27 H 04/08/23 13:22 BP 96/73 04/08/23 13:22 Pulse Ox 92 04/08/23 11:00 O2 Del Method Room Air 04/08/23 07:59 O2 Flow Rate 2 04/07/23 20:00 FiO2 2 03/29/23 07:48 04/08/23 04/08/23 04/08/23 06:59 14:59 22:59 Intake Total 332.733 / 2071.934 600 / 600 Output Total 2300 / 2300 Balance 312.733 / 1136.934 -1700 / -1700 Weight last 48 hrs Weight 214 lb 1.102 oz Weight 216 lb 9 oz Weight 220 lb Physical Exam Narrative: Abdomen: Soft, distended, diffuse mild tenderness to palpation, no guarding rebound or masses Incision intact, some erythema on the inferior aspect of the incision without exudate EFREM serous sanguinous Urinary Catheter Management: Conteh: Cath Placed During This Visit: yes Reason for Continuing Indwelling Catheter: Accurate Measurement of Urinary Output in Critically Ill Patients Urinary Catheter Date of Insertion: 03/27/23 Urinary Catheter Time of Insertion: 19:10 Data 04/08/23 03:55 04/08/23 03:55 Micro: Microbiology 04/07/23 16:20 Gram Stain - Final Peritoneal Fluid Anaerobic Culture - Preliminary Body Fluid Culture - Preliminary 04/07/23 16:20 Gram Stain - Final Pleural Fluid Body Fluid Culture - Preliminary A&P Assessment and plan (1) Bowel perforation: (2) Acute renal failure: Plan Postoperative day #12 status post exploratory laparotomy with primary repair of colotomy which occurred during a colonoscopy at an outside facility Status post permacath placement Remove EFREM Dr. Bermeo has agreed to take over as attending physician Hospitalist following-appreciate input Attestations Medical Necessity Statement*: Patient requires hospitalization for abdominal abscess, bacteremia, right lower extremity DVT, C. difficile colitis, perforated colon, status post surgery, Coding Level of Care Code Acute Code for Chg Fwd Diagnoses Bowel perforation K63.1 Acute renal failure N17.9
[2023-04-08 17:23] LABS: Glucose Point of Care 127 mg/dL (70-110)
[2023-04-08] MEDS: heparin drip 25,000 UNIT/500 ML PREMIX 38 UNIT IV (17:47)
[2023-04-08] MEDS: pantoprazole 40 mg SDV IVP (21:03)
[2023-04-08] MEDS: quetiapine 100 mg Tablet PO (21:03)
[2023-04-08 21:24] LABS: Glucose Point of Care 104 mg/dL (70-110)
[2023-04-08 23:02] LABS: Partial Thromboplastin Time 86.4 SECONDS (23.9-36.7)
[2023-04-09] VITALS (19 sets, daily range): BP systolic 95–140; BP diastolic 53–81; PULSE 80–106; RESP 17–31; TEMP 36.5–37.4; O2SAT 79–98
[2023-04-09] MEDS: HYDROmorphone 1 mg/mL INJ 1 mL IVP (04:21)
[2023-04-09 05:09] LABS: Basophils % 0.2 %; Eosinophils # 0.6 10^3/uL (0.0-0.8); Hematocrit 28.7 % (37-53); Lymphocytes # 1.9 10^3/uL (0.8-4.8); Lymphocytes % 9.9 %; Mean Corpuscular HGB Conc 31.4 g/dL (30-55); Mean Corpuscular Hemoglobin 28.6 pg (27-33); Mean Corpuscular Volume 91.1 fl (82-101); Mean Platelet Volume 10.3 fL (7.4-10.4); Monocytes % 10.5 %; Neutrophils # 14.05 10^3/uL (1.8-7.7); Neutrophils % 74.6 %; Nucleated Red Blood Cells % 0 %; Platelet Count 528 10^3/cmm (157-399); Red Blood Count 3.15 10^6/uL (3.85-5.65); Red Cell Distribution Width 14.3 % (12.1-15.1); White Blood Count 18.81 10^3/uL (3.29-11.43)
[2023-04-09 05:27] LABS: Alanine Aminotransferase < 5 U/L (0-41); Albumin Level 3.2 g/dL (3.5-5.2); Alkaline Phosphatase 112 U/L (40-130); Anion Gap 19.3 (5-19); Aspartate Amino Transferase 26 U/L (0-40); Blood Urea Nitrogen 46 mg/dL (8-23); C Reactive Protein 156.7 mg/L (0.0-4.9); Calcium 9.2 mg/dL (8.5-10.5); Carbon Dioxide 25 mmol/L (22-29); Chloride 97 mmol/L (98-107); Globulin 3.7 g/dL (1.3-4.6); Glucose 123 mg/dL (65-115); Magnesium 2.3 mg/dL (1.7-2.3); Osmolality Calculated 297 mOsm/kg (285-295); Phosphorus 6.3 mg/dL (2.5-4.5); Potassium 4.3 mmol/L (3.5-5.1); Sodium 137 mmol/L (136-145); Total Bilirubin 0.4 mg/dL (0.15-1.2); Total Protein 6.9 g/dL (6.6-8.7)
[2023-04-09 05:34] LABS: Partial Thromboplastin Time 88.5 SECONDS (23.9-36.7)
[2023-04-09 05:41] LABS: NT Pro B Type Natriuretic Pept 2558 pg/mL (0-450); Procalcitonin 0.95 ng/mL (0-0.5)
[2023-04-09 05:42] LABS: INR 1.07 (0.8-1.2)
[2023-04-09 05:49] LABS: Vancomycin Random 23.3 ug/mL (20.0-40.0)
[2023-04-09 07:08] LABS: Glucose Point of Care 125 mg/dL (70-110)
[2023-04-09] MEDS: metoprolol tartrate 25 mg Tablet 50 MG PO ×2 (08:10→20:53)
[2023-04-09] MEDS: carbidopa-levodopa 25-100mg Tablet 1 EACH PO ×2 (08:10→20:53)
[2023-04-09] MEDS: amiodarone 200 mg Tablet PO ×2 (08:10→18:17)
[2023-04-09] MEDS: finasteride 5 mg Tablet PO (08:10)
[2023-04-09] MEDS: buPROPion XL (24 HR) 150 mg Tablet PO (08:10)
[2023-04-09] MEDS: citalopram 20 mg Tablet 40 MG PO (08:10)
--- NOTE | 2023-04-09 09:06 | PM.PN ---
Subjective Subjective: s/p HD yesterday Medications: Reviewed: Yes Vitals/I&O/Wt Last Vital Signs Temp 98.8 F 04/09/23 04:00 Pulse 96 04/09/23 08:00 Resp 18 04/09/23 08:00 BP 129/80 04/09/23 04:00 Pulse Ox 96 04/09/23 08:00 O2 Del Method Room Air 04/09/23 08:00 O2 Flow Rate 2 04/07/23 20:00 FiO2 2 03/29/23 07:48 04/08/23 04/09/23 04/09/23 22:59 06:59 14:59 Intake Total 483.4 / 1350.667 Output Total 125 / 2425 60 / 2485 Balance -125 / -1557.733 423.4 / -1134.333 Weight last 48 hrs Weight 94.432 kg Weight 97.1 kg Weight 98.231 kg Physical Exam Narrative: awake , alert HEENT PEERLA + edema Extremity: NARRATIVE EXTREMITY EXAM: trace edema Urinary Catheter Management: Conteh: Cath Placed During This Visit: yes Reason for Continuing Indwelling Catheter: Accurate Measurement of Urinary Output in Critically Ill Patients Urinary Catheter Date of Insertion: 03/27/23 Urinary Catheter Time of Insertion: 19:10 Data 04/09/23 04:54 04/09/23 04:54 Micro: Microbiology 04/07/23 16:20 Gram Stain - Final Peritoneal Fluid Anaerobic Culture - Preliminary Body Fluid Culture - Preliminary 04/07/23 16:20 Gram Stain - Final Pleural Fluid Body Fluid Culture - Preliminary A&P Assessment and plan (1) MAYTE (acute kidney injury): Plan 1. Acute kidney injury due to sepsis, 2. E.coli (pansensitive) sepsis s/p repair of perforated sigmoid colon 3. Increased anion gap metabolic acidosis due to lactate and renal impairment. Resolved with sodium bicarbonate infusion. 4. new onset atrial fibrillation 5. 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 possible polycystic kidney disease, baseline eGFR 15 ml/min 6. Anemia, history of recent transfusion, iron deficient, received transfusion pRBC 7. History of diabetes, hypertension, coronary artery disease 8. pleural effusion . Discussed in detail with at bedside. s/p PC placement on 04/01. , HD started . s/p HD yesterday [facility] work to arrange for out pt HD , can do twice /week HD HD today Attestations Medical Necessity Statement*: per medicine team Coding Level of Care Code Acute Code for Chg Fwd Diagnoses MAYTE (acute kidney injury) N17.9
--- NOTE | 2023-04-09 11:00 | PC.SOCIAL ---
IMM update IMM updated with patient's . Verbalized an understanding. Copy pg 2 provided. Initialled, dated, timed, and placed in chart.
[2023-04-09 11:13] LABS: Glucose Point of Care 163 mg/dL (70-110)
[2023-04-09 12:12] LABS: Partial Thromboplastin Time 29.6 SECONDS (23.9-36.7)
[2023-04-09] MEDS: insulin lispro 100 unit/1 mL SUBCUT (12:19)
[2023-04-09] MEDS: meropenem 1,000 MG in sodium chloride 0.9% (plus) 50 ML 100 MG IV ×3 (12:19→23:56)
--- NOTE | 2023-04-09 14:38 | PM.PN ---
Subjective Subjective: Patient seen and examined. He looks really good today. Pain controlled Vitals/I&O/Wt Last Vital Signs Temp 98.8 F 04/09/23 04:00 Pulse 93 04/09/23 13:00 Resp 17 04/09/23 11:00 BP 95/63 04/09/23 10:00 Pulse Ox 92 04/09/23 10:00 O2 Del Method Room Air 04/09/23 08:00 O2 Flow Rate 2 04/07/23 20:00 FiO2 2 03/29/23 07:48 04/08/23 04/09/23 04/09/23 22:59 06:59 14:59 Intake Total 483.4 / 1350.667 350 / 350 Output Total 125 / 2425 60 / 2485 Balance -125 / -1557.733 423.4 / -1134.333 350 / 350 Weight last 48 hrs Weight 208 lb 3 oz Weight 214 lb 1.102 oz Weight 216 lb 9 oz Physical Exam Narrative: Abdomen: Soft, distended, diffuse mild tenderness to palpation, no guarding rebound or masses Incision intact, some erythema on the inferior aspect of the incision without exudate Urinary Catheter Management: Conteh: Cath Placed During This Visit: yes Reason for Continuing Indwelling Catheter: Accurate Measurement of Urinary Output in Critically Ill Patients Urinary Catheter Date of Insertion: 03/27/23 Urinary Catheter Time of Insertion: 19:10 Data 04/09/23 04:54 04/09/23 04:54 Micro: Microbiology 04/07/23 16:20 Gram Stain - Final Peritoneal Fluid Anaerobic Culture - Preliminary Body Fluid Culture - Preliminary 04/07/23 16:20 Gram Stain - Final Pleural Fluid Body Fluid Culture - Preliminary A&P Assessment and plan (1) Bowel perforation: (2) Acute renal failure: Plan Postoperative day #13 status post exploratory laparotomy with primary repair of colotomy which occurred during a colonoscopy at an outside facility Status post permacath placement Plan to remove celina tomorrow Hospitalist following-appreciate input Attestations Medical Necessity Statement*: Per primary Coding Level of Care Code Acute Code for Chg Fwd Diagnoses Bowel perforation K63.1 Acute renal failure N17.9
--- NOTE | 2023-04-09 15:12 | P.PN_ITS ---
Subjective Subjective: - Patient was seen this morning, he is alert to person, to place, he knows the year, he knows why he is here in the hospital he is follows commands -He was seen later on in the morning, at bedside, he is sitting up in the chair, smiling, he has no complaints, no nausea: Vomiting, no chest pain, patient's still wants him to go to snf facility -Patient removed his PICC line, will culture the tip, and place a PICC line later date -Has remained afebrile overnight, normotensive Vitals/I&O/Wt Last Vital Signs Temp 98.8 F 04/09/23 04:00 Pulse 93 04/09/23 13:00 Resp 17 04/09/23 11:00 BP 95/63 04/09/23 10:00 Pulse Ox 92 04/09/23 10:00 O2 Del Method Room Air 04/09/23 08:00 O2 Flow Rate 2 04/07/23 20:00 FiO2 2 03/29/23 07:48 04/09/23 04/09/23 04/09/23 06:59 14:59 22:59 Intake Total 483.4 / 1350.667 350 / 350 Output Total 60 / 2485 Balance 423.4 / -1134.333 350 / 350 Weight last 48 hrs Weight 94.432 kg Weight 97.1 kg Weight 98.231 kg Physical Exam Const: COMMON NORMALS: no acute distress and patient oriented x3 Resp: COMMON NORMALS: normal respiratory effort, No retractions, No use of accessory muscles and clear to auscultation bilaterally AUSCULTATION: clear to auscultation bilaterally Cardio: COMMON NORMALS: regular rate, regular rhythm, S1 normal heart sound present and S2 normal heart sound present RATE: regular rate RHYTHM: regular rhythm HEART SOUNDS: S1 normal heart sound present and S2 normal heart sound present GI: COMMON NORMALS: Normal to inspection, nondistended, normoactive bowel sounds present OTHER: Surgical site clean and dry, EFREM drain removed, lower sutures, with erythema Extremity: COMMON NORMALS: no pedal edema Neuro: COMMON NORMALS: patient oriented x3 Psych: COMMON NORMALS: mental status grossly normal Urinary Catheter Management: Conteh: Cath Placed During This Visit: yes Reason for Continuing Indwelling Catheter: Accurate Measurement of Urinary Outp ut in Critically Ill Patients Urinary Catheter Date of Insertion: 03/27/23 Urinary Catheter Time of Insertion: 19:10 Data 04/09/23 04:54 04/09/23 04:54 Micro: Microbiology 04/07/23 16:20 Gram Stain - Final Peritoneal Fluid Anaerobic Culture - Preliminary Body Fluid Culture - Preliminary 04/07/23 16:20 Gram Stain - Final Pleural Fluid Body Fluid Culture - Preliminary A&P Assessment and plan (1) Bowel perforation: (2) ASHD (arteriosclerotic heart disease): (3) Diabetes 1.5, managed as type 2: (4) HTN (hypertension): (5) Hyperlipidemia: (6) Septic shock: (7) Acute renal failure: (8) Acute encephalopathy: (9) E coli bacteremia: (10) CHRISTY (obstructive sleep apnea): (11) Gram-positive bacteremia: (12) Acute respiratory failure with hypoxia: (13) Systolic CHF: (14) Atrial fibrillation with RVR: (15) Intra-abdominal abscess: (16) Pleural effusion, left: (17) Iliac DVT (deep venous thrombosis): (18) C. difficile colitis: (19) Right leg DVT: Plan # Fever with persistent leukocytosis -Remains afebrile for the last 72 hours, leukocytosis stable patient has a long hospital course for septic shock, perforated bowel and intra-abdominal abscess, was slowly recovering from these issues as outlined below, however now having increasing white blood cell count over past few days, has been afebrile for the last 48 hours -Patient has a left pleural effusion, no growth so far -left perisplenic fluid collection exudative versus transudative, concerns for possible abscess, plans on needle drainage, follow results, decision to place perisplenic drain based on clinical progress and results -Patient has tunneled dialysis catheter in place, possible source of infection? We will follow blood cultures -Has a right PICC line in place, possible source of infection? PICC line was accidentally removed by patient, will culture the tip -Has received 5 days of fungal coverage Patient has had several lines placed over the past few days, will check blood cultures, thus far blood cultures taken yesterday are negative to date. -Respiratory viral panel negative -Chest CT no new infiltrate but does have a left lung compressive atelectasis, currently on room air -c diff vancomycin 125 mg 4 times daily while results -Antibiotics broadened to meropenem and vancomycin after having been de- escalated to Zosyn previously. -will likely dc on 6 weeks of invanz, stop date -Developing cellulitis around incision site, improving -Follow culture tip #Left pleural effusion -Status post drainage, 400 cc removed, clear, yellow, -LDH 2556, TP 3.7 -no growth so far -few wbc #Left perisplenic fluid collection, blood -50cc blood removed -no growth so far # c diff colitis -coutinue po vancomycin #Intra-abdominal abscess -?There is history of abdominal abscess and appears similar in location between the rectum and bladder margin. There is some punctate air within similar. The greatest dimensions currently are approximately 5.3 x 3.7 x 5.6 cm. This appears slightly larger overall. This also abuts the adjacent bowel margin -manage conservatively with ongoing abx #Seroma at incision site # Septic shock Resolved Related to discovery of a perforated colon during colonoscopy.ite Blood culture from 03/27 reported with E. coli and Bacteroides fragilis Follow-up blood cultures from March 31, 2023 thus far negative to date. He has been on appropriate antibiotic coverage based on susceptibility data. #Perforated bowel Status exploratory laparotomy, with repair of colotomy, post abdominal washout Managed per general surgery swallow trial passed today, expected to start diet #Intermittent A-fib with RVR - has been in sinus rhythm over the past week Amiodarone 200 p.o. two times daily, increase metoprolol 50 mg p.o. twice daily suspect that transient atrial fibrillation was related to sepsis -With his chronic anemia and hemoglobin dropped down to 5.0 in the recent past with suspected recent GI source of bleeding, do not believe patient will be a candidate for outpatient DOACs. # Acute hypoxic respiratory failure - now resolved Multifactorial,-Secondary to fluid overload from MAYTE on CKD and systolic CHF -Started hemodialysis with improvement in respiratory status -Pleural effusions have resolved , no consolidation # NSTEMI vs type II OK from demand supply mismatch related to sepsis. However cannot rule out ischemic etiology completely given that ejection fraction currently has dropped to 40 to 45% with mild global hypokinesia. Last stress test in May 2022 had shown a small sized fixed perfusion abnormality of mild severity in the basal to inferolateral lujan. He has been evaluated by cardiology as outpatient and medical management was opted in view of his CKD. # Obstructive sleep apnea, BiPAP at night time # Acute encephalopathy from sepsis and uremia, resolving, # Acute on chronic renal failure, with fluid overload Started hemodialysis on April 01, 2023, tolerating well #Right external iliac femoral venous junction DVT/RLE DVT -CT of the abdomen showed There is some patchy filling defect asymmetry demonstrated about the right external iliac femoral venous junction and could represent some early thrombosis. Consider lower extremity venous Doppler ultrasound. -eliquis -IMPRESSION: Positive for DVT in the right lower extremity with partial thrombus in right external iliac and common femoral vein. Encephalopathy -Monitor mentation -Likely secondary bacteremia, C. difficile, DVT, ICU delirium DO NOT RESUSCITATE, patient's is okay with elective intubation if required Nutrition: Ng feeds ongoing, swallow trial Heparin for DVT prophylaxis Protonix for GI prophylaxis Plan for today up out of bed, continue IV antibiotics, monitor mentation, will replace PICC line to a later date, de-escalate heparin drip to Eliquis, Attestations Medical Necessity Statement*: Patient requires hospitalization at E dvt, bacteremia, spetic hsock, perforate dbowel Diagnoses Bowel perforation K63.1 ASHD (arteriosclerotic heart disease) 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 difficile colitis A04.72 Right leg DVT I82.401
[2023-04-09 16:55] LABS: Glucose Point of Care 126 mg/dL (70-110)
[2023-04-09] MEDS: apixaban 5 mg Tablet 10 MG PO (18:17)
[2023-04-09] MEDS: magnesium hydroxide 30 mL UDC PO (20:53)
[2023-04-09] MEDS: quetiapine 100 mg Tablet PO (20:53)
[2023-04-09] MEDS: pantoprazole 40 mg SDV IVP (20:53)
[2023-04-09 21:46] LABS: Glucose Point of Care 129 mg/dL (70-110)
[2023-04-10] VITALS (8 sets, daily range): BP systolic 103–142; BP diastolic 59–75; PULSE 78–103; RESP 16–18; TEMP 36.3–37.2; O2SAT 92–95
[2023-04-10 04:54] LABS: Basophils % 0.2 %; Eosinophils # 0.5 10^3/uL (0.0-0.8); Hematocrit 28.5 % (37-53); Lymphocytes # 1.6 10^3/uL (0.8-4.8); Mean Corpuscular HGB Conc 30.9 g/dL (30-55); Mean Corpuscular Hemoglobin 28.9 pg (27-33); Mean Corpuscular Volume 93.4 fl (82-101); Mean Platelet Volume 10.3 fL (7.4-10.4); Monocytes # 1.6 10^3/uL (0.2-0.9); Monocytes % 9.6 %; Neutrophils # 12.18 10^3/uL (1.8-7.7); Neutrophils % 74.9 %; Nucleated Red Blood Cells % 0 %; Platelet Count 555 10^3/cmm (157-399); Red Blood Count 3.05 10^6/uL (3.85-5.65); Red Cell Distribution Width 14.4 % (12.1-15.1); White Blood Count 16.26 10^3/uL (3.29-11.43)
[2023-04-10 05:17] LABS: Vancomycin Random 19.8 ug/mL (20.0-40.0)
[2023-04-10 05:22] LABS: NT Pro B Type Natriuretic Pept 1812 pg/mL (0-450); Procalcitonin 0.96 ng/mL (0-0.5)
[2023-04-10] MEDS: apixaban 5 mg Tablet 10 MG PO ×2 (05:23→18:22)
[2023-04-10 05:35] LABS: Alanine Aminotransferase 6 U/L (0-41); Albumin Level 3.1 g/dL (3.5-5.2); Alkaline Phosphatase 107 U/L (40-130); Anion Gap 22.9 (5-19); Aspartate Amino Transferase 28 U/L (0-40); Blood Urea Nitrogen 58 mg/dL (8-23); C Reactive Protein 157.7 mg/L (0.0-4.9); Calcium 9.1 mg/dL (8.5-10.5); Carbon Dioxide 20 mmol/L (22-29); Chloride 96 mmol/L (98-107); Globulin 3.6 g/dL (1.3-4.6); Glucose 116 mg/dL (65-115); Magnesium 2.2 mg/dL (1.7-2.3); Osmolality Calculated 297 mOsm/kg (285-295); Potassium 3.9 mmol/L (3.5-5.1); Sodium 135 mmol/L (136-145); Total Bilirubin 0.4 mg/dL (0.15-1.2); Total Protein 6.7 g/dL (6.6-8.7)
[2023-04-10 06:38] LABS: Glucose Point of Care 130 mg/dL (70-110)
--- NOTE | 2023-04-10 08:35 | PM.PN ---
Subjective Subjective: denies any complaints Medications: Reviewed: Yes Vitals/I&O/Wt Last Vital Signs Temp 98.2 F 04/10/23 04:28 Pulse 78 04/10/23 06:00 Resp 16 04/10/23 04:28 BP 113/67 04/10/23 04:28 Pulse Ox 92 04/10/23 04:28 O2 Del Method Room Air 04/10/23 04:28 O2 Flow Rate 2 04/07/23 20:00 FiO2 2 03/29/23 07:48 04/09/23 04/10/23 04/10/23 22:59 06:59 14:59 Intake Total 344.4 / 694.4 50 / 744.4 370 / 370 Balance 344.4 / 694.4 50 / 744.4 370 / 370 Weight last 48 hrs Weight 93.185 kg Weight 94.432 kg Weight 97.1 kg Physical Exam Narrative: awake , alert HEENT PEERLA + edema Extremity: NARRATIVE EXTREMITY EXAM: trace edema Urinary Catheter Management: Conteh: Cath Placed During This Visit: yes Reason for Continuing Indwelling Catheter: Accurate Measurement of Urinary Output in Critically Ill Patients Urinary Catheter Date of Insertion: 03/27/23 Urinary Catheter Time of Insertion: 19:10 Data 04/10/23 04:36 04/10/23 04:36 Micro: Microbiology 04/07/23 16:20 Gram Stain - Final Peritoneal Fluid Anaerobic Culture - Preliminary Body Fluid Culture - Preliminary 04/07/23 16:20 Gram Stain - Final Pleural Fluid Body Fluid Culture - Preliminary A&P Assessment and plan (1) MAYTE (acute kidney injury): Plan 1. Acute kidney injury due to sepsis, 2. E.coli (pansensitive) sepsis s/p repair of perforated sigmoid colon 3. Increased anion gap metabolic acidosis due to lactate and renal impairment. Resolved with sodium bicarbonate infusion. 4. new onset atrial fibrillation 5. 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 possible polycystic kidney disease, baseline eGFR 15 ml/min 6. Anemia, history of recent transfusion, iron deficient, received transfusion pRBC 7. History of diabetes, hypertension, coronary artery disease 8. pleural effusion . Discussed in detail with at bedside. s/p PC placement on 04/01. , HD started . s/p HD yesterday [employer] work to arrange for out pt HD , can do twice /week HD HD today Attestations Medical Necessity Statement*: per medicine Coding Level of Care Code Acute Code for Chg Fwd Diagnoses MAYTE (acute kidney injury) N17.9
[2023-04-10] MEDS: metoprolol tartrate 25 mg Tablet 50 MG PO ×2 (09:32→20:38)
[2023-04-10] MEDS: citalopram 20 mg Tablet 40 MG PO (09:32)
[2023-04-10] MEDS: finasteride 5 mg Tablet PO (09:33)
[2023-04-10] MEDS: buPROPion XL (24 HR) 150 mg Tablet PO (09:33)
[2023-04-10] MEDS: amiodarone 200 mg Tablet PO ×2 (09:33→18:22)
[2023-04-10] MEDS: carbidopa-levodopa 25-100mg Tablet 1 EACH PO ×2 (09:50→20:38)
--- NOTE | 2023-04-10 10:50 | PM.PN ---
Subjective Subjective: Patient seen and examined. He remains confused. Pain controlled and tolerating diet Vitals/I&O/Wt Last Vital Signs Temp 97.4 F L 04/10/23 10:13 Pulse 102 H 04/10/23 10:13 Resp 16 04/10/23 08:43 BP 107/62 04/10/23 10:13 Pulse Ox 93 04/10/23 10:13 O2 Del Method Room Air 04/10/23 10:13 O2 Flow Rate 2 04/07/23 20:00 FiO2 2 03/29/23 07:48 04/09/23 04/10/23 04/10/23 22:59 06:59 14:59 Intake Total 344.4 / 694.4 50 / 744.4 370 / 370 Balance 344.4 / 694.4 50 / 744.4 370 / 370 Weight last 48 hrs Weight 205 lb 7 oz Weight 208 lb 3 oz Weight 214 lb 1.102 oz Physical Exam Narrative: Abdomen: Soft, distended, diffuse mild tenderness to palpation, no guarding rebound or masses Incision intact, some erythema on the inferior aspect of the incision without exudate Urinary Catheter Management: Conteh: Cath Placed During This Visit: yes Reason for Continuing Indwelling Catheter: Accurate Measurement of Urinary Output in Critically Ill Patients Urinary Catheter Date of Insertion: 03/27/23 Urinary Catheter Time of Insertion: 19:10 Data 04/10/23 04:36 04/10/23 04:36 Micro: Microbiology 04/07/23 16:20 Gram Stain - Final Peritoneal Fluid Anaerobic Culture - Preliminary Body Fluid Culture - Preliminary 04/07/23 16:20 Gram Stain - Final Pleural Fluid Body Fluid Culture - Preliminary A&P Assessment and plan (1) Bowel perforation: (2) Acute renal failure: (3) C. difficile colitis: Plan Postoperative day #14 status post exploratory laparotomy with primary repair of colotomy which occurred during a colonoscopy at an outside facility Status post permacath placement Jaleesa removed today Hospitalist following-appreciate input Attestations Medical Necessity Statement*: Per primary Coding Level of Care Code Acute Code for Chg Fwd Diagnoses Bowel perforation K63.1 Acute renal failure N17.9 C. difficile colitis A04.72
[2023-04-10] MEDS: meropenem 1,000 MG in sodium chloride 0.9% (plus) 50 ML 100 MG IV (12:44)
--- NOTE | 2023-04-10 13:01 | PC.NURSE ---
Staple Removal Slight redness noted to the distal portion of the wound. Serosangiunious drainage noted moderate amount
[2023-04-10] MEDS: heparin, porcine 1,000 unit/mL INJ 10 mL 1000 UNIT IV (15:10)
--- NOTE | 2023-04-10 16:21 | P.PN_ITS ---
Subjective Subjective: Patient was seen this morning, at bedside, he is actually sitting up in a chair alert to person, to place, not to time, he tells me that he is here in the hospital because he is got perforated, we had extensive discussion with him about his prolonged hospital course, I think he is suffering some degree of delirium from being here in the hospital for a long period of time had him pulling out his PICC line yesterday, I discussed with him and his about constantly reassured he can himself, to the date that time why he is here in the hospital, and I keep reinforcing it whenever I see him, continue to work with physical therapy, improving his appetite, he understands that the hospital ization in the past recovery will be a long course of especially that now he is on dialysis, but he tells me he is motivated to get out of the hospital, at bedside is pleased on how he is doing better today, he has a lot more colored him, he has a lot more energy this morning Vitals/I&O/Wt Last Vital Signs Temp 98.9 F 04/10/23 15:58 Pulse 85 04/10/23 12:52 Resp 18 04/10/23 15:58 BP 113/59 04/10/23 15:58 Pulse Ox 94 04/10/23 15:58 O2 Del Method Room Air 04/10/23 15:58 O2 Flow Rate 2 04/07/23 20:00 FiO2 2 03/29/23 07:48 04/10/23 04/10/23 04/10/23 06:59 14:59 22:59 Intake Total 50 / 744.4 420 / 420 Balance 50 / 744.4 420 / 420 Weight last 48 hrs Weight 93.185 kg Weight 94.432 kg Physical Exam Const: COMMON NORMALS: no acute distress ORIENTATION/CONSCIOUSNESS: Yes awake, Yes oriented to person and Yes oriented to place; not oriented to time Resp: COMMON NORMALS: normal respiratory effort, No retractions, No use of accessory muscles and clear to auscultation bilaterally AUSCULTATION: clear to auscultation bilaterally Cardio: COMMON NORMALS: regular rate, regular rhythm, S1 normal heart sound present and S2 normal heart sound present RATE: regular rate RHYTHM: regular rhythm HEART SOUNDS: S1 normal heart sound present and S2 normal heart sound present GI: COMMON NORMALS: Normal to inspection, nondistended, normoactive bowel sounds present and non-tender OTHER: Surgical celina in place, clean and dry, mild erythema Extremity: COMMON NORMALS: no pedal edema Neuro: SENSORIUM/ORIENTATION: Yes oriented to person, Yes oriented to place and No oriented to time Psych: COMMON NORMALS: mental status grossly normal Urinary Catheter Management: Conteh: Cath Placed During This Visit: yes Reason for Continuing Indwelling Catheter: Accurate Measurement of Urinary Output in Critically Ill Patients Urinary Catheter Date of Insertion: 03/27/23 Urinary Catheter Time of Insertion: 19:10 Data 04/10/23 04:36 04/10/23 04:36 Micro: Microbiology 04/07/23 16:20 Gram Stain - Final Peritoneal Fluid Anaerobic Culture - Preliminary Body Fluid Culture - Final 04/07/23 16:20 Gram Stain - Final Pleural Fluid Body Fluid Culture - Final 04/05/23 11:40 Blood Culture - Final Blood NO GROWTH AFTER 5 DAYS 04/05/23 11:36 Blood Culture - Final Blood NO GROWTH AFTER 5 DAYS A&P Assessment and plan (1) Bowel perforation: (2) ASHD (arteriosclerotic heart disease): (3) Diabetes 1.5, managed as type 2: (4) HTN (hypertension): (5) Hyperlipidemia: (6) Septic shock: (7) Acute renal failure: (8) Acute encephalopathy: (9) E coli bacteremia: (10) CHRISTY (obstructive sleep apnea): (11) Gram-positive bacteremia: (12) Acute respiratory failure with hypoxia: (13) Systolic CHF: (14) Atrial fibrillation with RVR: (15) Intra-abdominal abscess: (16) Pleural effusion, left: (17) Iliac DVT (deep venous thrombosis): (18) C. difficile colitis: (19) Right leg DVT: Plan # Fever with persistent leukocytosis -Remains afebrile for the last 72 hours, leukocytosis stable patient has a long hospital course for septic shock, perforated bowel and intra-abdominal abscess, was slowly recovering from these issues as outlined below, however now having increasing white blood cell count over past few days, has been afebrile for the last 48 hours -Patient has a left pleural effusion, no growth so far -left perisplenic fluid collection exudative versus transudative, concerns for possible abscess, plans on needle drainage, follow results, decision to place perisplenic drain based on clinical progress and results -Patient has tunneled dialysis catheter in place, possible source of infection? We will follow blood cultures -Has a right PICC line in place, possible source of infection? PICC line was accidentally removed by patient, culture tip pending -Has received 5 days of fungal coverage Patient has had several lines placed over the past few days, will check blood cultures, thus far blood cultures taken yesterday are negative to date. -Respiratory viral panel negative -Chest CT no new infiltrate but does have a left lung compressive atelectasis, currently on room air -c diff vancomycin 125 mg 4 times daily while results -Antibiotics broadened to meropenem and vancomycin after having been de- escalated to Zosyn previously. -will likely dc on 6 weeks of invanz, stop date -Developing cellulitis around incision site, improving -Follow culture tip #Left pleural effusion -Status post drainage, 400 cc removed, clear, yellow, -LDH 2556, TP 3.7 -no growth so far -few wbc #Left perisplenic fluid collection, blood -50cc blood removed -no growth so far # c diff colitis -coutinue po vancomycin #Intra-abdominal abscess -?There is history of abdominal abscess and appears similar in location between the rectum and bladder margin. There is some punctate air within similar. The greatest dimensions currently are approximately 5.3 x 3.7 x 5.6 cm. This appears slightly larger overall. This also abuts the adjacent bowel margin -manage conservatively with ongoing abx #Seroma at incision site # Septic shock Resolved Related to discovery of a perforated colon during colonoscopy.ite Blood culture from 03/27 reported with E. coli and Bacteroides fragilis Follow-up blood cultures from March 31, 2023 thus far negative to date. He has been on appropriate antibiotic coverage based on susceptibility data. #Perforated bowel Status exploratory laparotomy, with repair of colotomy, post abdominal washout Managed per general surgery swallow trial passed today, expected to start diet #Intermittent A-fib with RVR - has been in sinus rhythm over the past week Amiodarone 200 p.o. two times daily, increase metoprolol 50 mg p.o. twice daily suspect that transient atrial fibrillation was related to sepsis -With his chronic anemia and hemoglobin dropped down to 5.0 in the recent past with suspected recent GI source of bleeding, do not believe patient will be a candidate for outpatient DOACs. # Acute hypoxic respiratory failure - now resolved Multifactorial,-Secondary to fluid overload from MAYTE on CKD and systolic CHF -Started hemodialysis with improvement in respiratory status -Pleural effusions have resolved , no consolidation # NSTEMI vs type II CT from demand supply mismatch related to sepsis. However cannot rule out ischemic etiology completely given that ejection fraction currently has dropped to 40 to 45% with mild global hypokinesia. Last stress test in May 2022 had shown a small sized fixed perfusion abnormality of mild severity in the basal to inferolateral lujan. He has been evaluated by cardiology as outpatient and medical management was opted in view of his CKD. # Obstructive sleep apnea, BiPAP at night time # Acute encephalopathy from sepsis and uremia, resolving, # Acute on chronic renal failure, with fluid overload Started hemodialysis on April 01, 2023, tolerating well #Right external iliac femoral venous junction DVT/RLE DVT -CT of the abdomen showed There is some patchy filling defect asymmetry demonstrated about the right external iliac femoral venous junction and could represent some early thrombosis. Consider lower extremity venous Doppler ultrasound. -eliquis -IMPRESSION: Positive for DVT in the right lower extremity with partial thrombus in right external iliac and common femoral vein. Encephalopathy -Monitor mentation -Likely secondary bacteremia, C. difficile, DVT, ICU delirium DO NOT RESUSCITATE, patient's is okay with elective intubation if required Nutrition: Ng feeds ongoing, swallow trial Heparin for DVT prophylaxis Protonix for GI prophylaxis Plan for today up out of bed, continue IV antibiotics, monitor mentation, will replace PICC line to a later date, continue Eliquis, monitor mentation, continue C. difficile treatment, continue dialysis Attestations Medical Necessity Statement*: Patient requires hospitalization for C. difficile, perforated colon, with abdominal abscess requiring IV antibiotics, DVT, encephalopathy, Diagnoses Bowel perforation K63.1 ASHD (arteriosclerotic heart disease) 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 difficile colitis A04.72 Right leg DVT I82.401
[2023-04-10 17:07] LABS: Glucose Point of Care 99 mg/dL (70-110)
[2023-04-10] MEDS: HYDROcodone-acetaminophen 5-325 mg Tablet 1 TAB PO (18:22)
[2023-04-10] MEDS: vancomycin 1,000 MG in sodium chloride 0.9% 250 ML 250 MG IV (18:35)
[2023-04-10] MEDS: quetiapine 100 mg Tablet PO (20:38)
[2023-04-10] MEDS: pantoprazole 40 mg SDV IVP (20:38)
[2023-04-10 20:55] LABS: Glucose Point of Care 205 mg/dL (70-110)
--- NOTE | 2023-04-10 23:18 | ECG_ITS ---
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 Measurements Intervals [place] Rate: 95 P: 32 CA: 167 QRS: -31 QRSD: 100 T: 4 QT: 436 QTc: 550 Interpretive Statements SINUS RHYTHM LEFT AXIS DEVIATION [QRS AXIS < -30] LOW QRS VOLTAGE IN PRECORDIAL LEADS [QRS DEFLECTION < 1.0 mV IN CHEST LEADS] POSSIBLE ANTERIOR MYOCARDIAL INFARCTION , OF INDETERMINATE AGE [30 ms Q WAVE IN V3/V4, OR R < 0.2 mV IN V4] POSSIBLE INFERIOR MYOCARDIAL INFARCTION , PROBABLY OLD [30 ms Q WAVE IN II/aVF] Compared to ECG 04/04/2023 11:41:04 Left-axis deviation now present Low QRS voltage now present T-wave abnormality no longer present Myocardial infarct finding still present Electronically Signed On 04-11-2023 19:04:22 CDT by Gabriela Church M.D. [email or web address]
[2023-04-11] VITALS (12 sets, daily range): BP systolic 111–142; BP diastolic 60–75; PULSE 77–98; RESP 14–18; TEMP 36.3–37; O2SAT 93–98
[2023-04-11] MEDS: meropenem 1,000 MG in sodium chloride 0.9% (plus) 50 ML 100 MG IV ×3 (00:18→22:28)
[2023-04-11 04:56] LABS: Basophils % 0.3 %; Eosinophils # 0.2 10^3/uL (0.0-0.8); Eosinophils % 1.6 %; Hematocrit 26.8 % (37-53); Lymphocytes # 1.7 10^3/uL (0.8-4.8); Lymphocytes % 11.3 %; Mean Corpuscular Hemoglobin 28.6 pg (27-33); Mean Corpuscular Volume 92.4 fl (82-101); Mean Platelet Volume 10.1 fL (7.4-10.4); Monocytes # 1.5 10^3/uL (0.2-0.9); Monocytes % 10.2 %; Neutrophils # 11.14 10^3/uL (1.8-7.7); Neutrophils % 73.8 %; Nucleated Red Blood Cells % 0 %; Platelet Count 535 10^3/cmm (157-399); Red Cell Distribution Width 13.9 % (12.1-15.1)
[2023-04-11 05:18] LABS: C Reactive Protein 99.1 mg/L (0.0-4.9); Magnesium 2.1 mg/dL (1.7-2.3); Phosphorus 5.5 mg/dL (2.5-4.5)
[2023-04-11 05:22] LABS: Anion Gap 17.9 (5-19); Blood Urea Nitrogen 35 mg/dL (8-23); Calcium 8.6 mg/dL (8.5-10.5); Carbon Dioxide 24 mmol/L (22-29); Chloride 97 mmol/L (98-107); Glucose 125 mg/dL (65-115); Osmolality Calculated 289 mOsm/kg (285-295); Potassium 3.9 mmol/L (3.5-5.1); Sodium 135 mmol/L (136-145)
[2023-04-11 05:24] LABS: Procalcitonin 0.79 ng/mL (0-0.5)
[2023-04-11] MEDS: apixaban 5 mg Tablet 10 MG PO ×2 (05:50→17:47)
[2023-04-11 06:43] LABS: Glucose Point of Care 137 mg/dL (70-110)
[2023-04-11] MEDS: metoprolol tartrate 25 mg Tablet 50 MG PO ×2 (09:30→20:27)
[2023-04-11] MEDS: finasteride 5 mg Tablet PO (09:30)
[2023-04-11] MEDS: citalopram 20 mg Tablet 40 MG PO (09:30)
[2023-04-11] MEDS: amiodarone 200 mg Tablet PO ×2 (09:30→17:47)
[2023-04-11] MEDS: carbidopa-levodopa 25-100mg Tablet 1 EACH PO ×2 (09:30→20:27)
[2023-04-11] MEDS: buPROPion XL (24 HR) 150 mg Tablet PO (09:31)
--- NOTE | 2023-04-11 09:44 | PM.PN ---
Subjective Subjective: no new complaints Medications: Reviewed: Yes Vitals/I&O/Wt Last Vital Signs Temp 98 F 04/11/23 07:13 Pulse 98 04/11/23 09:42 Resp 17 04/11/23 09:42 BP 142/75 04/11/23 07:13 Pulse Ox 94 04/11/23 09:42 O2 Del Method Room Air 04/11/23 09:42 O2 Flow Rate 2 04/07/23 20:00 FiO2 2 03/29/23 07:48 04/10/23 04/11/23 04/11/23 22:59 06:59 14:59 Intake Total 250 / 670 550 / 1220 120 / 120 Output Total 1999 / 1999 Balance 250 / 670 -1450 / -780 120 / 120 Weight last 48 hrs Weight 92.108 kg Weight 89.8 kg Weight 93.185 kg Physical Exam Narrative: awake , alert HEENT PEERLA + edema Extremity: NARRATIVE EXTREMITY EXAM: trace edema Urinary Catheter Management: Conteh: Cath Placed During This Visit: yes Reason for Continuing Indwelling Catheter: Accurate Measurement of Urinary Output in Critically Ill Patients Urinary Catheter Date of Insertion: 03/27/23 Urinary Catheter Time of Insertion: 19:10 Data 04/11/23 04:40 04/11/23 04:40 Micro: Microbiology 04/07/23 16:20 Gram Stain - Final Peritoneal Fluid Anaerobic Culture - Preliminary Body Fluid Culture - Final 04/07/23 16:20 Gram Stain - Final Pleural Fluid Body Fluid Culture - Final 04/05/23 11:40 Blood Culture - Final Blood NO GROWTH AFTER 5 DAYS 04/05/23 11:36 Blood Culture - Final Blood NO GROWTH AFTER 5 DAYS A&P Assessment and plan (1) MYATE (acute kidney injury): Plan 1. Acute kidney injury due to sepsis, 2. E.coli (pansensitive) sepsis s/p repair of perforated sigmoid colon 3. Increased anion gap metabolic acidosis due to lactate and renal impairment. Resolved with sodium bicarbonate infusion. 4. new onset atrial fibrillation 5. 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 possible polycystic kidney disease, baseline eGFR 15 ml/min 6. Anemia, history of recent transfusion, iron deficient, received transfusion pRBC 7. History of diabetes, hypertension, coronary artery disease 8. pleural effusion Discussed in detail with at bedside. s/p PC placement on 04/01. , HD started . [facility] work to arrange for out pt HD , can do twice /week HD HD tomorrow Attestations Medical Necessity Statement*: per medicine team Coding Level of Care Code Acute Code for Chg Fwd Diagnoses MAYTE (acute kidney injury) N17.9
[2023-04-11 11:09] LABS: Glucose Point of Care 199 mg/dL (70-110)
[2023-04-11] MEDS: insulin lispro 100 unit/1 mL SUBCUT (12:19)
--- NOTE | 2023-04-11 15:14 | PM.PN ---
Subjective Subjective: - Patient seen this morning -He is alert and oriented x3, follows all commands -He knows who the president is, he recognizes his ex- at bedside -I had extensive discussion with him again today and his ex- about his hospitalization -We had a discussion about his future care, I discussed that I would strongly recommend for him to go to detention facility for rehab, after discussing the risk and benefits of nursing homes, he voiced understanding, all questions answered, agreed to proceed -Patient also told me that his ex- at bedside will be his decision maker if he cannot make decisions -Currently patient follows all commands, he is alert oriented x3 he understands why he is in the hospital he has good capacity and displays good understanding he does have episodes of confusion but today he is very alert awake Vitals/I&O/Wt Last Vital Signs Temp 97.3 F L 04/11/23 12:25 Pulse 81 04/11/23 14:00 Resp 18 04/11/23 12:25 BP 123/71 04/11/23 12:25 Pulse Ox 95 04/11/23 12:25 O2 Del Method Room Air 04/11/23 12:25 O2 Flow Rate 2 04/07/23 20:00 FiO2 2 03/29/23 07:48 04/11/23 04/11/23 04/11/23 06:59 14:59 22:59 Intake Total 550 / 1220 290 / 290 Output Total 1999 Balance -1450 / -780 290 / 290 Weight last 48 hrs Weight 92.108 kg Weight 89.8 kg Weight 93.185 kg Physical Exam Const: COMMON NORMALS: no acute distress and patient oriented x3 Resp: COMMON NORMALS: normal respiratory effort, No retractions, No use of accessory muscles and clear to auscultation bilaterally AUSCULTATION: clear to auscultation bilaterally Cardio: COMMON NORMALS: regular rate, regular rhythm, S1 normal heart sound present and S2 normal heart sound present RATE: regular rate RHYTHM: regular rhythm HEART SOUNDS: S1 normal heart sound present and S2 normal heart sound present GI: COMMON NORMALS: Normal to inspection, nondistended, normoactive bowel sounds present and non-tender OTHER: Surgical site, with bandage on top, stained with serosanguineous fluid Extremity: COMMON NORMALS: no pedal edema Neuro: COMMON NORMALS: patient oriented x3 Psych: COMMON NORMALS: mental status grossly normal Urinary Catheter Management: Conteh: Cath Placed During This Visit: yes Reason for Continuing Indwelling Catheter: Accurate Measurement of Urinary Output in Critically Ill Patients Urinary Catheter Date of Insertion: 03/27/23 Urinary Catheter Time of Insertion: 19:10 Data 04/11/23 04:40 04/11/23 04:40 Micro: Microbiology 04/07/23 16:20 Mycobacterial Smear - Preliminary Body Fluids - Pleura 04/07/23 16:20 Gram Stain - Final Peritoneal Fluid Anaerobic Culture - Preliminary Body Fluid Culture - Final 04/07/23 16:20 Gram Stain - Final Pleural Fluid Body Fluid Culture - Final 04/05/23 11:40 Blood Culture - Final Blood NO GROWTH AFTER 5 DAYS 04/05/23 11:36 Blood Culture - Final Blood NO GROWTH AFTER 5 DAYS A&P Assessment and plan (1) Bowel perforation: (2) ASHD (arteriosclerotic heart disease): (3) Diabetes 1.5, managed as type 2: (4) HTN (hypertension): (5) Hyperlipidemia: (6) Septic shock: (7) Acute renal failure: (8) Acute encephalopathy: (9) E coli bacteremia: (10) CHRISTY (obstructive sleep apnea): (11) Gram-positive bacteremia: (12) Acute respiratory failure with hypoxia: (13) Systolic CHF: (14) Atrial fibrillation with RVR: (15) Intra-abdominal abscess: (16) Pleural effusion, left: (17) Iliac DVT (deep venous thrombosis): (18) C. difficile colitis: (19) Right leg DVT: Plan # Fever with persistent leukocytosis -Remains afebrile for the last 96 hours, leukocytosis stable patient has a long hospital course for septic shock, perforated bowel and intra-abdominal abscess, was slowly recovering from these issues as outlined below, however now having increasing white blood cell count over past few days, has been afebrile for the last 48 hours -Patient has a left pleural effusion, no growth so far -left perisplenic fluid collection exudative versus transudative, concerns for possible abscess, plans on needle drainage, follow results, decision to place perisplenic drain based on clinical progress and results -Patient has tunneled dialysis catheter in place, possible source of infection? We will follow blood cultures -Has a right PICC line in place, possible source of infection? PICC line was accidentally removed by patient, culture tip pending -Has received 5 days of fungal coverage Patient has had several lines placed over the past few days, will check blood cultures, thus far blood cultures taken yesterday are negative to date. -Respiratory viral panel negative -Chest CT no new infiltrate but does have a left lung compressive atelectasis, currently on room air -c diff vancomycin 125 mg 4 times daily while results -Antibiotics broadened to meropenem and vancomycin after having been de-escalated to Zosyn previously. -will likely dc on 6 weeks of invanz, stop date -Developing cellulitis around incision site, improving -Follow culture tip #Left pleural effusion -Status post drainage, 400 cc removed, clear, yellow, -LDH 2556, TP 3.7 -no growth so far -few wbc #Left perisplenic fluid collection, blood -50cc blood removed -no growth so far # c diff colitis -coutinue po vancomycin #Intra-abdominal abscess -?There is history of abdominal abscess and appears similar in location between the rectum and bladder margin. There is some punctate air within similar. The greatest dimensions currently are approximately 5.3 x 3.7 x 5.6 cm. This appears slightly larger overall. This also abuts the adjacent bowel margin -manage conservatively with ongoing abx #Seroma at incision site # Septic shock Resolved Related to discovery of a perforated colon during colonoscopy.ite Blood culture from 03/27 reported with E. coli and Bacteroides fragilis Follow-up blood cultures from March 31, 2023 thus far negative to date. He has been on appropriate antibiotic coverage based on susceptibility data. #Perforated bowel Status exploratory laparotomy, with repair of colotomy, post abdominal washout Managed per general surgery swallow trial passed today, expected to start diet #Intermittent A-fib with RVR - has been in sinus rhythm over the past week Amiodarone 200 p.o. two times daily, increase metoprolol 50 mg p.o. twice daily suspect that transient atrial fibrillation was related to sepsis -With his chronic anemia and hemoglobin dropped down to 5.0 in the recent past with suspected recent GI source of bleeding, do not believe patient will be a candidate for outpatient DOACs. # Acute hypoxic respiratory failure - now resolved Multifactorial,-Secondary to fluid overload from MAYTE on CKD and systolic CHF -Started hemodialysis with improvement in respiratory status -Pleural effusions have resolved , no consolidation # NSTEMI vs type II OH from demand supply mismatch related to sepsis. However cannot rule out ischemic etiology completely given that ejection fraction currently has dropped to 40 to 45% with mild global hypokinesia. Last stress test in May 2022 had shown a small sized fixed perfusion abnormality of mild severity in the basal to inferolateral lujan. He has been evaluated by cardiology as outpatient and medical management was opted in view of his CKD. # Obstructive sleep apnea, BiPAP at night time # Acute encephalopathy from sepsis and uremia, resolved # Acute on chronic renal failure, with fluid overload Started hemodialysis on April 01, 2023, tolerating well #Right external iliac femoral venous junction DVT/RLE DVT -CT of the abdomen showed There is some patchy filling defect asymmetry demonstrated about the right external iliac femoral venous junction and could represent some early thrombosis. Consider lower extremity venous Doppler ultrasound. -eliquis -IMPRESSION: Positive for DVT in the right lower extremity with partial thrombus in right external iliac and common femoral vein. Encephalopathy, resolved -Monitor mentation -Likely secondary bacteremia, C. difficile, DVT, ICU delirium DO NOT RESUSCITATE, patient's is okay with elective intubation if required Nutrition: Ng feeds ongoing, swallow trial Heparin for DVT prophylaxis Protonix for GI prophylaxis Plan for today up out of bed, continue IV antibiotics, monitor mentation, will replace PICC line to a later date, continue Eliquis, monitor mentation, continue C. difficile treatment, continue dialysis Attestations Medical Necessity Statement*: Patient requires hospitalization for perforated colonoscopy perforated colon, abdominal abscess, C. difficile, DVT Diagnoses Bowel perforation K63.1 ASHD (arteriosclerotic heart disease) 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 difficile colitis A04.72 Right leg DVT I82.401
[2023-04-11 16:39] LABS: Glucose Point of Care 138 mg/dL (70-110)
[2023-04-11] MEDS: quetiapine 100 mg Tablet PO (20:27)
[2023-04-11] MEDS: pantoprazole 40 mg SDV IVP (20:27)
[2023-04-11] MEDS: magnesium hydroxide 30 mL UDC PO (20:27)
[2023-04-11] MEDS: HYDROcodone-acetaminophen 5-325 mg Tablet 1 TAB PO (20:39)
[2023-04-11 20:58] LABS: Glucose Point of Care 162 mg/dL (70-110)
[2023-04-12] VITALS (12 sets, daily range): BP systolic 116–153; BP diastolic 66–78; PULSE 75–96; RESP 14–18; TEMP 36.6–37.4; O2SAT 92–94
[2023-04-12] MEDS: HYDROcodone-acetaminophen 5-325 mg Tablet 1 TAB PO ×3 (05:01→21:04)
[2023-04-12] MEDS: apixaban 5 mg Tablet 10 MG PO ×2 (05:01→17:43)
[2023-04-12 05:14] LABS: Basophils # 0.1 10^3/uL (0.0-0.1); Basophils % 0.4 %; Eosinophils # 0.4 10^3/uL (0.0-0.8); Eosinophils % 2.9 %; Hematocrit 27.4 % (37-53); Lymphocytes # 1.4 10^3/uL (0.8-4.8); Lymphocytes % 9.2 %; Mean Corpuscular Hemoglobin 28.5 pg (27-33); Mean Corpuscular Volume 91.9 fl (82-101); Monocytes # 1.4 10^3/uL (0.2-0.9); Monocytes % 9.1 %; Neutrophils # 11.22 10^3/uL (1.8-7.7); Neutrophils % 75.2 %; Nucleated Red Blood Cells % 0 %; Platelet Count 571 10^3/cmm (157-399); Red Blood Count 2.98 10^6/uL (3.85-5.65); Red Cell Distribution Width 14.2 % (12.1-15.1); White Blood Count 14.92 10^3/uL (3.29-11.43)
[2023-04-12 05:40] LABS: Vancomycin Random 23.4 ug/mL (20.0-40.0)
[2023-04-12 05:43] LABS: C Reactive Protein 67.6 mg/L (0.0-4.9); Magnesium 2.1 mg/dL (1.7-2.3); Phosphorus 5.6 mg/dL (2.5-4.5)
[2023-04-12 05:44] LABS: Blood Urea Nitrogen 45 mg/dL (8-23); Calcium 8.7 mg/dL (8.5-10.5); Carbon Dioxide 25 mmol/L (22-29); Chloride 95 mmol/L (98-107); Glucose 134 mg/dL (65-115); Osmolality Calculated 290 mOsm/kg (285-295); Sodium 133 mmol/L (136-145)
[2023-04-12 05:50] LABS: Procalcitonin 0.65 ng/mL (0-0.5)
[2023-04-12 06:43] LABS: Glucose Point of Care 138 mg/dL (70-110)
[2023-04-12] MEDS: carbidopa-levodopa 25-100mg Tablet 1 EACH PO ×2 (08:56→21:04)
[2023-04-12] MEDS: metoprolol tartrate 25 mg Tablet 50 MG PO ×2 (08:56→21:04)
[2023-04-12] MEDS: finasteride 5 mg Tablet PO (08:56)
[2023-04-12] MEDS: buPROPion XL (24 HR) 150 mg Tablet PO (08:56)
[2023-04-12] MEDS: citalopram 20 mg Tablet 40 MG PO (08:56)
[2023-04-12] MEDS: amiodarone 200 mg Tablet PO ×2 (08:56→17:42)
[2023-04-12] MEDS: heparin, porcine 1,000 unit/mL INJ 10 mL 1000 UNIT IV (10:52)
[2023-04-12 11:39] LABS: Glucose Point of Care 132 mg/dL (70-110)
--- NOTE | 2023-04-12 11:46 | P.PN_ITS ---
Subjective Subjective: getting HD today Medications: Reviewed: Yes Vitals/I&O/Wt Last Vital Signs Temp 98.6 F 04/12/23 08:00 Pulse 92 04/12/23 10:33 Resp 16 04/12/23 10:33 BP 124/69 04/12/23 08:00 Pulse Ox 93 04/12/23 10:33 O2 Del Method Room Air 04/12/23 10:33 O2 Flow Rate 2 04/07/23 20:00 FiO2 2 03/29/23 07:48 04/11/23 04/12/23 04/12/23 22:59 06:59 14:59 Intake Total 740 / 1030 50 / 1080 Output Total 150 / 150 Balance 740 / 1030 50 / 1080 -150 / -150 Weight last 48 hrs Weight 92.731 kg Weight 92.108 kg Weight 89.8 kg Physical Exam Narrative: awake , alert HEENT PEERLA + edema Extremity: NARRATIVE EXTREMITY EXAM: trace edema Urinary Catheter Management: Conteh: Cath Placed During This Visit: yes Reason for Continuing Indwelling Catheter: Accurate Measurement of Urinary Outp ut in Critically Ill Patients Urinary Catheter Date of Insertion: 03/27/23 Urinary Catheter Time of Insertion: 19:10 Data 04/12/23 04:23 04/12/23 04:23 Micro: Microbiology 04/07/23 16:20 Gram Stain - Final Peritoneal Fluid Anaerobic Culture - Preliminary Body Fluid Culture - Final 04/09/23 14:50 Catheter Tip Culture - Final Picc Line 04/07/23 16:20 Mycobacterial Smear - Preliminary Body Fluids - Pleura A&P Assessment and plan (1) MAYTE (acute kidney injury): Plan 1. Acute kidney injury due to sepsis, 2. E.coli (pansensitive) sepsis s/p repair of perforated sigmoid colon 3. Increased anion gap metabolic acidosis due to lactate and renal impairment. Resolved with sodium bicarbonate infusion. 4. new onset atrial fibrillation 5. 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 possible polycystic kidney disease, baseline eGFR 15 ml/min 6. Anemia, history of recent transfusion, iron deficient, received transfusion pRBC 7. History of diabetes, hypertension, coronary artery disease 8. pleural effusion Discussed in detail with at bedside. s/p PC placement on 04/01. , HD started . [facility] work to arrange for out pt HD , can do twice /week HD HD today Attestations Medical Necessity Statement*: per medisarane team Coding Level of Care Code Acute Code for Chg Fwd Diagnoses MAYTE (acute kidney injury) N17.9
--- NOTE | 2023-04-12 12:51 | P.PN_ITS ---
Subjective Subjective: Patient was seen this morning, he has no complaints, reports he had a bowel movement yesterday, no nausea, no vomiting alert to person, to place, not to time, follows commands, he has no complaints this morning Vitals/I&O/Wt Last Vital Signs Temp 98.6 F 04/12/23 08:00 Pulse 92 04/12/23 12:00 Resp 16 04/12/23 12:00 BP 124/69 04/12/23 08:00 Pulse Ox 93 04/12/23 10:33 O2 Del Method Room Air 04/12/23 10:33 O2 Flow Rate 2 04/07/23 20:00 FiO2 2 03/29/23 07:48 04/11/23 04/12/23 04/12/23 22:59 06:59 14:59 Intake Total 740 / 1030 50 / 1080 Output Total 150 / 150 Balance 740 / 1030 50 / 1080 -150 / -150 Weight last 48 hrs Weight 92.731 kg Weight 92.108 kg Weight 89.8 kg Physical Exam Const: COMMON NORMALS: no acute distress ORIENTATION/CONSCIOUSNESS: Yes awake, Yes oriented to person and Yes oriented to place; not oriented to time Resp: COMMON NORMALS: normal respiratory effort, No retractions, No use of accessory muscles and clear to auscultation bilaterally AUSCULTATION: clear to auscultation bilaterally Cardio: COMMON NORMALS: regular rate, regular rhythm, S1 normal heart sound present and S2 normal heart sound present RATE: regular rate RHYTHM: regular rhythm HEART SOUNDS: S1 normal heart sound present and S2 normal heart sound present GI: COMMON NORMALS: Normal to inspection, nondistended, normoactive bowel sounds present and non-tender Extremity: COMMON NORMALS: no pedal edema Neuro: SENSORIUM/ORIENTATION: Yes oriented to person, Yes oriented to place and No oriented to time Psych: COMMON NORMALS: mental status grossly normal Urinary Catheter Management: Conteh: Cath Placed During This Visit: yes Reason for Continuing Indwelling Catheter: Accurate Measurement of Urinary Output in Critically Ill Patients Urinary Catheter Date of Insertion: 03/27/23 Urinary Catheter Time of Insertion: 19:10 Data 04/12/23 04:23 04/12/23 04:23 Micro: Microbiology 04/07/23 16:20 Gram Stain - Final Peritoneal Fluid Anaerobic Culture - Preliminary Body Fluid Culture - Final 04/09/23 14:50 Catheter Tip Culture - Final Picc Line 04/07/23 16:20 Mycobacterial Smear - Preliminary Body Fluids - Pleura A&P Assessment and plan (1) Bowel perforation: (2) ASHD (arteriosclerotic heart disease): (3) Diabetes 1.5, managed as type 2: (4) HTN (hypertension): (5) Hyperlipidemia: (6) Septic shock: (7) Acute renal failure: (8) Acute encephalopathy: (9) E coli bacteremia: (10) CHRISTY (obstructive sleep apnea): (11) Gram-positive bacteremia: (12) Acute respiratory failure with hypoxia: (13) Systolic CHF: (14) Atrial fibrillation with RVR: (15) Intra-abdominal abscess: (16) Pleural effusion, left: (17) Iliac DVT (deep venous thrombosis): (18) C. difficile colitis: (19) Right leg DVT: Plan # Fever with persistent leukocytosis -Remains afebrile for the last 96 hours, leukocytosis stable patient has a long hospital course for septic shock, perforated bowel and intra-abdominal abscess, was slowly recovering from these issues as outlined below, however now having increasing white blood cell count over past few days, has been afebrile for the last 48 hours -Patient has a left pleural effusion, no growth so far -left perisplenic fluid collection exudative versus transudative, concerns for possible abscess, plans on needle drainage, follow results, decision to place perisplenic drain based on clinical progress and results -Patient has tunneled dialysis catheter in place, possible source of infection? We will follow blood cultures -Has a right PICC line in place, possible source of infection? PICC line was accidentally removed by patient, culture tip pending -Has received 5 days of fungal coverage Patient has had several lines placed over the past few days, will check blood cultures, thus far blood cultures taken yesterday are negative to date. -Respiratory viral panel negative -Chest CT no new infiltrate but does have a left lung compressive atelectasis, currently on room air -c diff vancomycin 125 mg 4 times daily while results -Antibiotics broadened to meropenem and vancomycin after having been de- escalated to Zosyn previously. -will likely dc on 6 weeks of invanz, stop date -Developing cellulitis around incision site, improving -culture tip negative #Left pleural effusion -Status post drainage, 400 cc removed, clear, yellow, -LDH 2556, TP 3.7 -no growth so far -few wbc #Left perisplenic fluid collection, blood -50cc blood removed -no growth so far # c diff colitis -coutinue po vancomycin #Intra-abdominal abscess -?There is history of abdominal abscess and appears similar in location between the rectum and bladder margin. There is some punctate air within similar. The greatest dimensions currently are approximately 5.3 x 3.7 x 5.6 cm. This appears slightly larger overall. This also abuts the adjacent bowel margin -manage conservatively with ongoing abx #Seroma at incision site # Septic shock Resolved Related to discovery of a perforated colon during colonoscopy.ite Blood culture from 03/27 reported with E. coli and Bacteroides fragilis Follow-up blood cultures from March 31, 2023 thus far negative to date. He has been on appropriate antibiotic coverage based on susceptibility data. #Perforated bowel Status exploratory laparotomy, with repair of colotomy, post abdominal washout Managed per general surgery swallow trial passed today, expected to start diet #Intermittent A-fib with RVR - has been in sinus rhythm over the past week Amiodarone 200 p.o. two times daily, increase metoprolol 50 mg p.o. twice daily suspect that transient atrial fibrillation was related to sepsis -With his chronic anemia and hemoglobin dropped down to 5.0 in the recent past with suspected recent GI source of bleeding, do not believe patient will be a candidate for outpatient DOACs. # Acute hypoxic respiratory failure - now resolved Multifactorial,-Secondary to fluid overload from MAYTE on CKD and systolic CHF -Started hemodialysis with improvement in respiratory status -Pleural effusions have resolved , no consolidation # NSTEMI vs type II MS from demand supply mismatch related to sepsis. However cannot rule out ischemic etiology completely given that ejection fraction currently has dropped to 40 to 45% with mild global hypokinesia. Last stress test in May 2022 had shown a small sized fixed perfusion abnormality of mild severity in the basal to inferolateral lujan. He has been evaluated by cardiology as outpatient and medical management was opted in view of his CKD. # Obstructive sleep apnea, BiPAP at night time # Acute encephalopathy from sepsis and uremia, resolved # Acute on chronic renal failure, with fluid overload Started hemodialysis on April 01, 2023, tolerating well #Right external iliac femoral venous junction DVT/RLE DVT -CT of the abdomen showed There is some patchy filling defect asymmetry demonstrated about the right external iliac femoral venous junction and could represent some early thrombosis. Consider lower extremity venous Doppler ultrasound. -eliquis -IMPRESSION: Positive for DVT in the right lower extremity with partial thrombus in right external iliac and common femoral vein. Encephalopathy, resolved -Monitor mentation -Likely secondary bacteremia, C. difficile, DVT, ICU delirium DO NOT RESUSCITATE, patient's is okay with elective intubation if required Nutrition: Ng feeds ongoing, swallow trial Heparin for DVT prophylaxis Protonix for GI prophylaxis Plan for today up out of bed, continue IV antibiotics, monitor mentation, will replace PICC line to a later date, continue Eliquis, monitor mentation, continue C. difficile treatment, continue dialysis, deesclate to doxyxline Attestations Medical Necessity Statement*: patient requires hospitalization for dvt, perforated colon with abscess Diagnoses Bowel perforation K63.1 ASHD (arteriosclerotic heart disease) 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 difficile colitis A04.72 Right leg DVT I82.401
[2023-04-12] MEDS: heparin, porcine 1,000 unit/mL INJ 10 mL 10000 UNIT INTRACATH (14:07)
[2023-04-12] MEDS: meropenem 1,000 MG in sodium chloride 0.9% (plus) 50 ML 100 MG IV (15:02)
[2023-04-12 16:55] LABS: Glucose Point of Care 208 mg/dL (70-110)
[2023-04-12] MEDS: insulin lispro 100 unit/1 mL SUBCUT (17:42)
[2023-04-12] MEDS: doxycycline 100 mg Tablet PO (17:42)
[2023-04-12 21:00] LABS: Glucose Point of Care 98 mg/dL (70-110)
[2023-04-12] MEDS: magnesium hydroxide 30 mL UDC PO (21:04)
[2023-04-12] MEDS: pantoprazole 40 mg SDV IVP (21:04)
[2023-04-12] MEDS: quetiapine 100 mg Tablet PO (21:04)
[2023-04-13] VITALS (10 sets, daily range): BP systolic 105–137; BP diastolic 57–75; PULSE 77–102; RESP 16–18; TEMP 36.5–37.2; O2SAT 93–95; BMI 28.1
[2023-04-13] MEDS: meropenem 1,000 MG in sodium chloride 0.9% (plus) 50 ML 100 MG IV ×2 (00:44→14:29)
[2023-04-13 04:09] LABS: Basophils # 0.1 10^3/uL (0.0-0.1); Basophils % 0.3 %; Eosinophils # 0.4 10^3/uL (0.0-0.8); Eosinophils % 2.2 %; Hematocrit 27.5 % (37-53); Lymphocytes # 1.9 10^3/uL (0.8-4.8); Mean Corpuscular HGB Conc 30.9 g/dL (30-55); Mean Corpuscular Hemoglobin 28.1 pg (27-33); Mean Corpuscular Volume 91.1 fl (82-101); Mean Platelet Volume 9.9 fL (7.4-10.4); Monocytes # 1.7 10^3/uL (0.2-0.9); Monocytes % 10.8 %; Neutrophils # 11.38 10^3/uL (1.8-7.7); Neutrophils % 70.7 %; Nucleated Red Blood Cells % 0 %; Platelet Count 573 10^3/cmm (157-399); Red Blood Count 3.02 10^6/uL (3.85-5.65)
[2023-04-13 04:36] LABS: Procalcitonin 0.53 ng/mL (0-0.5)
[2023-04-13 04:40] LABS: Anion Gap 16.7 (5-19); Blood Urea Nitrogen 30 mg/dL (8-23); Calcium 8.7 mg/dL (8.5-10.5); Carbon Dioxide 27 mmol/L (22-29); Chloride 93 mmol/L (98-107); Glucose 138 mg/dL (65-115); Osmolality Calculated 284 mOsm/kg (285-295); Potassium 3.7 mmol/L (3.5-5.1); Sodium 133 mmol/L (136-145)
[2023-04-13 04:43] LABS: C Reactive Protein 77.4 mg/L (0.0-4.9); Magnesium 2.1 mg/dL (1.7-2.3); Phosphorus 4.7 mg/dL (2.5-4.5)
[2023-04-13] MEDS: apixaban 5 mg Tablet 10 MG PO ×2 (04:59→17:12)
[2023-04-13 06:24] LABS: Glucose Point of Care 122 mg/dL (70-110)
[2023-04-13] MEDS: metoprolol tartrate 25 mg Tablet 50 MG PO ×2 (09:45→21:22)
[2023-04-13] MEDS: buPROPion XL (24 HR) 150 mg Tablet PO (09:45)
[2023-04-13] MEDS: citalopram 20 mg Tablet 40 MG PO (09:45)
[2023-04-13] MEDS: amiodarone 200 mg Tablet PO ×2 (09:46→17:12)
[2023-04-13] MEDS: doxycycline 100 mg Tablet PO ×2 (09:46→17:12)
[2023-04-13] MEDS: carbidopa-levodopa 25-100mg Tablet 1 EACH PO ×2 (09:46→21:22)
[2023-04-13] MEDS: finasteride 5 mg Tablet PO (09:46)
[2023-04-13 11:06] LABS: Glucose Point of Care 192 mg/dL (70-110)
[2023-04-13] MEDS: insulin lispro 100 unit/1 mL SUBCUT (11:50)
--- NOTE | 2023-04-13 15:58 | P.PN_ITS ---
Subjective Subjective: Patient was seen this morning, he is alert oriented x3, follows all commands, he has no complaints, no nausea, vomiting, no abdominal pain, no fevers, no chills Vitals/I&O/Wt Last Vital Signs Temp 98.5 F 04/13/23 13:08 Pulse 87 04/13/23 13:08 Resp 17 04/13/23 13:08 BP 125/70 04/13/23 13:08 Pulse Ox 93 04/13/23 13:08 O2 Del Method Room Air 04/13/23 13:08 O2 Flow Rate 2 04/07/23 20:00 FiO2 2 03/29/23 07:48 04/13/23 04/13/23 04/13/23 06:59 14:59 22:59 Intake Total 50 / 1080 840 / 840 50 / 890 Balance 50 / -1795 840 / 840 50 / 890 Weight last 48 hrs Weight 91.654 kg Weight 92.8 kg Weight 92.731 kg Physical Exam Const: COMMON NORMALS: no acute distress and patient oriented x3 Resp: COMMON NORMALS: normal respiratory effort, No retractions, No use of accessory muscles and clear to auscultation bilaterally AUSCULTATION: clear to auscultation bilaterally Cardio: COMMON NORMALS: regular rate, regular rhythm, S1 normal heart sound present and S2 normal heart sound present RATE: regular rate RHYTHM: regular rhythm HEART SOUNDS: S1 normal heart sound present and S2 normal heart sound present GI: COMMON NORMALS: Normal to inspection, nondistended, normoactive bowel sounds present and non-tender OTHER: Surgical site, looks clean and dry Extremity: COMMON NORMALS: no pedal edema Neuro: COMMON NORMALS: patient oriented x3 Psych: COMMON NORMALS: mental status grossly normal Urinary Catheter Management: Conteh: Cath Placed During This Visit: yes Reason for Continuing Indwelling Catheter: Accurate Measurement of Urinary Output in Critically Ill Patients Urinary Catheter Date of Insertion: 03/27/23 Urinary Catheter Time of Insertion: 19:10 Data 04/13/23 03:32 04/13/23 03:32 Micro: Microbiology 04/07/23 16:20 Gram Stain - Final Peritoneal Fluid Anaerobic Culture - Preliminary Body Fluid Culture - Final A&P Assessment and plan (1) Bowel perforation: (2) ASHD (arteriosclerotic heart disease): (3) Diabetes 1.5, managed as type 2: (4) HTN (hypertension): (5) Hyperlipidemia: (6) Septic shock: (7) Acute renal failure: (8) Acute encephalopathy: (9) E coli bacteremia: (10) CHRISTY (obstructive sleep apnea): (11) Gram-positive bacteremia: (12) Acute respiratory failure with hypoxia: (13) Systolic CHF: (14) Atrial fibrillation with RVR: (15) Intra-abdominal abscess: (16) Pleural effusion, left: (17) Iliac DVT (deep venous thrombosis): (18) C. difficile colitis: (19) Right leg DVT: Plan # Fever with persistent leukocytosis -Remains afebrile , leukocytosis stable patient has a long hospital course for septic shock, perforated bowel and intra-abdominal abscess, was slowly recovering from these issues as outlined below, however now having increasing white blood cell count over past few days, has been afebrile for the last 48 hours -Patient has a left pleural effusion, no growth so far -left perisplenic fluid collection exudative versus transudative, concerns for possible abscess, plans on needle drainage, follow results, decision to place perisplenic drain based on clinical progress and results -Patient has tunneled dialysis catheter in place, possible source of infection? We will follow blood cultures -Has a right PICC line in place, possible source of infection? PICC line was accidentally removed by patient, culture tip pending -Has received 5 days of fungal coverage Patient has had several lines placed over the past few days, so far blood cultures negative -Respiratory viral panel negative -Chest CT no new infiltrate but does have a left lung compressive atelectasis, currently on room air -c diff vancomycin 125 mg 4 times daily while results -Antibiotics broadened to meropenem and vancomycin after having been de- escalated to Zosyn previously. -will likely dc on 6 weeks of invanz, stop date -Developing cellulitis around incision site, improving -culture tip negative #Left pleural effusion -Status post drainage, 400 cc removed, clear, yellow, -LDH 2556, TP 3.7 -no growth so far -few wbc #Left perisplenic fluid collection, blood -50cc blood removed -no growth so far # c diff colitis -coutinue po vancomycin #Intra-abdominal abscess -?There is history of abdominal abscess and appears similar in location between the rectum and bladder margin. There is some punctate air within similar. The greatest dimensions currently are approximately 5.3 x 3.7 x 5.6 cm. This appears slightly larger overall. This also abuts the adjacent bowel margin -manage conservatively with ongoing abx #Seroma at incision site # Septic shock Resolved Related to discovery of a perforated colon during colonoscopy.ite Blood culture from 03/27 reported with E. coli and Bacteroides fragilis Follow-up blood cultures from March 31, 2023 thus far negative to date. He has been on appropriate antibiotic coverage based on susceptibility data. #Perforated bowel Status exploratory laparotomy, with repair of colotomy, post abdominal washout Managed per general surgery swallow trial passed today, expected to start diet #Intermittent A-fib with RVR - has been in sinus rhythm over the past week Amiodarone 200 p.o. two times daily, increase metoprolol 50 mg p.o. twice daily suspect that transient atrial fibrillation was related to sepsis -With his chronic anemia and hemoglobin dropped down to 5.0 in the recent past with suspected recent GI source of bleeding, do not believe patient will be a candidate for outpatient DOACs. # Acute hypoxic respiratory failure - now resolved Multifactorial,-Secondary to fluid overload from MAYTE on CKD and systolic CHF -Started hemodialysis with improvement in respiratory status -Pleural effusions have resolved , no consolidation # NSTEMI vs type II MS from demand supply mismatch related to sepsis. However cannot rule out ischemic etiology completely given that ejection fraction currently has dropped to 40 to 45% with mild global hypokinesia. Last stress test in May 2022 had shown a small sized fixed perfusion abnormality of mild severity in the basal to inferolateral lujan. He has been evaluated by c ardiology as outpatient and medical management was opted in view of his CKD. # Obstructive sleep apnea, BiPAP at night time # Acute encephalopathy from sepsis and uremia, resolved # Acute on chronic renal failure, with fluid overload Started hemodialysis on April 01, 2023, tolerating well -Receiving hemodialysis, will need hemodialysis as outpatient #Right external iliac femoral venous junction DVT/RLE DVT -CT of the abdomen showed There is some patchy filling defect asymmetry demonstrated about the right external iliac femoral venous junction and could represent some early thrombosis. Consider lower extremity venous Doppler ultrasound. -IMPRESSION: Positive for DVT in the right lower extremity with partial thrombus in right external iliac and common femoral vein. -Eliquis 10 mg twice daily for 10 days, 04/19, followed by 5 twice daily Encephalopathy, resolved -Monitor mentation -Likely secondary bacteremia, C. difficile, DVT, ICU delirium DO NOT RESUSCITATE, patient's is okay with elective intubation if required Nutrition: Ng feeds ongoing, swallow trial Heparin for DVT prophylaxis Protonix for GI prophylaxis Plan for today, up out of bed, continue IV antibiotics, monitor surgical site, monitor for fevers, continue POC differential treatment, continue IV meropenem Attestations Medical Necessity Statement*: Patient requires hospitalization for perforated colon status post surgery, with intra-abdominal abscess on meropenem, C. difficile colitis, end-stage renal disease on dialysis Diagnoses Bowel perforation K63.1 ASHD (arteriosclerotic heart disease) 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 difficile colitis A04.72 Right leg DVT I82.401
[2023-04-13 16:41] LABS: Glucose Point of Care 117 mg/dL (70-110)
--- NOTE | 2023-04-13 18:35 | PM.PN ---
Subjective Subjective: no new complaints Medications: Reviewed: Yes Vitals/I&O/Wt Last Vital Signs Temp 98.6 F 04/13/23 16:00 Pulse 85 04/13/23 16:00 Resp 17 04/13/23 16:00 BP 127/72 04/13/23 16:00 Pulse Ox 93 04/13/23 16:00 O2 Del Method Room Air 04/13/23 16:00 O2 Flow Rate 2 04/07/23 20:00 FiO2 2 03/29/23 07:48 04/13/23 04/13/23 04/13/23 06:59 14:59 22:59 Intake Total 50 / 1080 840 / 840 530 / 1370 Balance 50 / -1795 840 / 840 530 / 1370 Weight last 48 hrs Weight 91.654 kg Weight 92.8 kg Weight 92.731 kg Physical Exam Narrative: awake , alert HEENT PEERLA + edema Extremity: NARRATIVE EXTREMITY EXAM: trace edema Urinary Catheter Management: Conteh: Cath Placed During This Visit: yes Reason for Continuing Indwelling Catheter: Accurate Measurement of Urinary Output in Critically Ill Patients Urinary Catheter Date of Insertion: 03/27/23 Urinary Catheter Time of Insertion: 19:10 Data 04/13/23 03:32 04/13/23 03:32 Micro: Microbiology 04/07/23 16:20 Gram Stain - Final Peritoneal Fluid Anaerobic Culture - Preliminary Body Fluid Culture - Final A&P Assessment and plan (1) MAYTE (acute kidney injury): Plan 1. Acute kidney injury due to sepsis, 2. E.coli (pansensitive) sepsis s/p repair of perforated sigmoid colon 3. Increased anion gap metabolic acidosis due to lactate and renal impairment. Resolved with sodium bicarbonate infusion. 4. new onset atrial fibrillation 5. 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 possible polycystic kidney disease, baseline eGFR 15 ml/min 6. Anemia, history of recent transfusion, iron deficient, received transfusion pRBC 7. History of diabetes, hypertension, coronary artery disease 8. pleural effusion Discussed in detail with at bedside. s/p PC placement on 04/01. , HD started . [facility] work to arrange for out pt HD , can do twice /week HD HD tomorrow Attestations Medical Necessity Statement*: permedicine Coding Level of Care Code Acute Code for Chg Fwd Diagnoses MAYTE (acute kidney injury) N17.9
[2023-04-13] MEDS: pantoprazole 40 mg SDV IVP (20:57)
[2023-04-13 21:05] LABS: Glucose Point of Care 252 mg/dL (70-110)
[2023-04-13] MEDS: quetiapine 100 mg Tablet PO (21:22)
[2023-04-13] MEDS: magnesium hydroxide 30 mL UDC PO (21:23)
[2023-04-14] VITALS (10 sets, daily range): BP systolic 116–134; BP diastolic 62–75; PULSE 76–89; RESP 15–18; TEMP 36.6–37.2; O2SAT 93–95
[2023-04-14] MEDS: meropenem 1,000 MG in sodium chloride 0.9% (plus) 50 ML 100 MG IV ×2 (01:50→20:21)
[2023-04-14 05:15] LABS: Basophils % 0.3 %; Eosinophils # 0.4 10^3/uL (0.0-0.8); Eosinophils % 2.5 %; Hematocrit 26.9 % (37-53); Lymphocytes # 2.1 10^3/uL (0.8-4.8); Lymphocytes % 13.3 %; Mean Corpuscular HGB Conc 31.2 g/dL (30-55); Mean Corpuscular Hemoglobin 28.6 pg (27-33); Mean Corpuscular Volume 91.5 fl (82-101); Monocytes # 1.5 10^3/uL (0.2-0.9); Monocytes % 9.2 %; Neutrophils # 11.13 10^3/uL (1.8-7.7); Neutrophils % 70.6 %; Nucleated Red Blood Cells % 0 %; Platelet Count 519 10^3/cmm (157-399); Red Blood Count 2.94 10^6/uL (3.85-5.65); White Blood Count 15.76 10^3/uL (3.29-11.43)
[2023-04-14 05:34] LABS: C Reactive Protein 62.1 mg/L (0.0-4.9)
[2023-04-14] MEDS: apixaban 5 mg Tablet 10 MG PO ×2 (05:35→19:02)
[2023-04-14 05:37] LABS: Anion Gap 16.1 (5-19); Blood Urea Nitrogen 45 mg/dL (8-23); Calcium 8.7 mg/dL (8.5-10.5); Carbon Dioxide 26 mmol/L (22-29); Chloride 93 mmol/L (98-107); Glucose 122 mg/dL (65-115); Osmolality Calculated 285 mOsm/kg (285-295); Potassium 4.1 mmol/L (3.5-5.1); Sodium 131 mmol/L (136-145)
[2023-04-14 06:40] LABS: Glucose Point of Care 133 mg/dL (70-110)
[2023-04-14] MEDS: carbidopa-levodopa 25-100mg Tablet 1 EACH PO ×2 (08:52→21:22)
[2023-04-14] MEDS: buPROPion XL (24 HR) 150 mg Tablet PO (08:52)
[2023-04-14] MEDS: doxycycline 100 mg Tablet PO ×2 (08:52→19:01)
[2023-04-14] MEDS: metoprolol tartrate 25 mg Tablet 50 MG PO ×2 (08:52→21:22)
[2023-04-14] MEDS: amiodarone 200 mg Tablet PO ×2 (08:52→19:01)
[2023-04-14] MEDS: citalopram 20 mg Tablet 40 MG PO (08:52)
[2023-04-14] MEDS: finasteride 5 mg Tablet PO (08:52)
--- NOTE | 2023-04-14 11:01 | PM.PN ---
Subjective Subjective: no new compliants Medications: Reviewed: Yes Vitals/I&O/Wt Last Vital Signs Temp 97.9 F 04/14/23 07:10 Pulse 80 04/14/23 08:00 Resp 16 04/14/23 08:00 BP 129/74 04/14/23 07:10 Pulse Ox 93 04/14/23 08:00 O2 Del Method Room Air 04/14/23 08:00 O2 Flow Rate 2 04/07/23 20:00 FiO2 2 03/29/23 07:48 04/13/23 04/14/23 04/14/23 22:59 06:59 14:59 Intake Total 650 / 1490 50 / 1540 240 / 240 Balance 650 / 1490 50 / 1540 240 / 240 Weight last 48 hrs Weight 92.533 kg Weight 91.654 kg Weight 92.8 kg Physical Exam Narrative: awake , alert HEENT PEERLA + edema Extremity: NARRATIVE EXTREMITY EXAM: trace edema Urinary Catheter Management: Conteh: Cath Placed During This Visit: yes Reason for Continuing Indwelling Catheter: Accurate Measurement of Urinary Output in Critically Ill Patients Urinary Catheter Date of Insertion: 03/27/23 Urinary Catheter Time of Insertion: 19:10 Data 04/15/23 05:52 04/14/23 04:11 Micro: Microbiology 04/07/23 16:20 Gram Stain - Final Peritoneal Fluid Anaerobic Culture - Preliminary Body Fluid Culture - Final A&P Assessment and plan (1) MAYTE (acute kidney injury): Plan 1. Acute kidney injury due to sepsis, 2. E.coli (pansensitive) sepsis s/p repair of perforated sigmoid colon, now has abdominal abscess , was not able to drain , repeat CT per ID 3. Increased anion gap metabolic acidosis due to lactate and renal impairment. Resolved with sodium bicarbonate infusion. 4. new onset atrial fibrillation 5. 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 possible polycystic kidney disease, baseline eGFR 15 ml/min 6. Anemia, history of recent transfusion, iron deficient, received transfusion pRBC 7. History of diabetes, hypertension, coronary artery disease 8. pleural effusion Discussed in detail with at bedside. s/p PC placement on 04/01. , HD started . [facility] work to arrange for out pt HD , can do twice /week HD HD today Attestations Medical Necessity Statement*: per medicine team Coding Level of Care Code Acute Code for Chg Fwd Diagnoses MAYTE (acute kidney injury) N17.9
--- NOTE | 2023-04-14 11:52 | PC.SOCIAL ---
IMM Update pg 2 of IMM updated and reviewed w/ patient. Copy provided and Copy in chart dated and initialed.
[2023-04-14 11:56] LABS: Glucose Point of Care 226 mg/dL (70-110)
[2023-04-14] MEDS: insulin lispro 100 unit/1 mL SUBCUT (12:51)
--- NOTE | 2023-04-14 13:03 | P.PN_ITS ---
Subjective Subjective: Patient was seen this morning, he is sitting up in a chair, alert to person, to place, to time, follows all commands, no abdominal pain, no fevers, no chills, no nausea, no vomiting, Vitals/I&O/Wt Last Vital Signs Temp 98.3 F 04/14/23 12:00 Pulse 81 04/14/23 12:00 Resp 15 04/14/23 12:00 BP 118/72 04/14/23 12:00 Pulse Ox 95 04/14/23 12:00 O2 Del Method Room Air 04/14/23 12:00 O2 Flow Rate 2 04/07/23 20:00 FiO2 2 03/29/23 07:48 04/13/23 04/14/23 04/14/23 22:59 06:59 14:59 Intake Total 650 / 1490 50 / 1540 480 / 480 Balance 650 / 1490 50 / 1540 480 / 480 Weight last 48 hrs Weight 92.533 kg Weight 91.654 kg Weight 92.8 kg Physical Exam Const: COMMON NORMALS: no acute distress and patient oriented x3 Resp: COMMON NORMALS: normal respiratory effort, No retractions, No use of accessory muscles and clear to auscultation bilaterally AUSCULTATION: clear to auscultation bilaterally Cardio: COMMON NORMALS: regular rate, regular rhythm, S1 normal heart sound present and S2 normal heart sound present RATE: regular rate RHYTHM: regular rhythm HEART SOUNDS: S1 normal heart sound present and S2 normal heart sound present GI: COMMON NORMALS: Normal to inspection, nondistended, normoactive bowel sounds present and non-tender Extremity: COMMON NORMALS: no pedal edema Neuro: COMMON NORMALS: patient oriented x3 Psych: COMMON NORMALS: mental status grossly normal Urinary Catheter Management: Conteh: Cath Placed During This Visit: yes Reason for Continuing Indwelling Catheter: Accurate Measurement of Urinary Output in Critically Ill Patients Urinary Catheter Date of Insertion: 03/27/23 Urinary Catheter Time of Insertion: 19:10 Data 04/14/23 04:11 04/14/23 04:11 Micro: Microbiology 04/07/23 16:20 Gram Stain - Final Peritoneal Fluid Anaerobic Culture - Final Body Fluid Culture - Final A&P Assessment and plan (1) Bowel perforation: (2) ASHD (arteriosclerotic heart disease): (3) Diabetes 1.5, managed as type 2: (4) HTN (hypertension): (5) Hyperlipidemia: (6) Septic shock: (7) Acute renal failure: (8) Acute encephalopathy: (9) E coli bacteremia: (10) CHRISTY (obstructive sleep apnea): (11) Gram-positive bacteremia: (12) Acute respiratory failure with hypoxia: (13) Systolic CHF: (14) Atrial fibrillation with RVR: (15) Intra-abdominal abscess: (16) Pleural effusion, left: (17) Iliac DVT (deep venous thrombosis): (18) C. difficile colitis: (19) Right leg DVT: Plan # Fever with persistent leukocytosis -Remains afebrile , leukocytosis stable -Patient has a left pleural effusion, no growth so far -left perisplenic fluid collection growth of based on clinical progress and results -Has a right PICC line in place, possible source of infection? PICC line was accidentally removed by patient, culture tip no growth so far -Has received 5 days of fungal coverage -Respiratory viral panel negative -Chest CT no new infiltrate but does have a left lung compressive atelectasis, currently on room air -c diff vancomycin 125 mg 4 times for C. difficile colitis -Continue meropenem -will likely dc on 6 weeks of invanz, stop date -Developing cellulitis around incision site, improving, doxycycline -We will need a CT scan in 2 weeks #Left pleural effusion -Status post drainage, 400 cc removed, clear, yellow, -LDH 2556, TP 3.7 -no growth so far -few wbc #Left perisplenic fluid collection, blood -50cc blood removed -no growth so far # c diff colitis -coutinue po vancomycin #Intra-abdominal abscess -?There is history of abdominal abscess and appears similar in location between the rectum and bladder margin. There is some punctate air within similar. The greatest dimensions currently are approximately 5.3 x 3.7 x 5.6 cm. This appears slightly larger overall. This also abuts the adjacent bowel margin -manage conservatively with ongoing abx #Seroma at incision site # Septic shock Resolved Related to discovery of a perforated colon during colonoscopy.ite Blood culture from 03/27 reported with E. coli and Bacteroides fragilis Follow-up blood cultures from March 31, 2023 thus far negative to date. He has been on appropriate antibiotic coverage based on susceptibility data. #Perforated bowel Status exploratory laparotomy, with repair of colotomy, post abdominal washout Managed per general surgery swallow trial passed today, expected to start diet #Intermittent A-fib with RVR - has been in sinus rhythm over the past week Amiodarone 200 p.o. two times daily, increase metoprolol 50 mg p.o. twice daily suspect that transient atrial fibrillation was related to sepsis -With his chronic anemia and hemoglobin dropped down to 5.0 in the recent past with suspected recent GI source of bleeding, do not believe patient will be a candidate for outpatient DOACs. # Acute hypoxic respiratory failure - now resolved Multifactorial,-Secondary to fluid overload from MAYTE on CKD and systolic CHF -Started hemodialysis with improvement in respiratory status -Pleural effusions have resolved , no consolidation # NSTEMI vs type II [place] from demand supply mismatch related to sepsis. However cannot rule out ischemic etiology completely given that ejection fraction currently has dropped to 40 to 45% with mild global hypokinesia. Last stress test in May 2022 had shown a small sized fixed perfusion abnormality of m ild severity in the basal to inferolateral lujan. He has been evaluated by cardiology as outpatient and medical management was opted in view of his CKD. # Obstructive sleep apnea, BiPAP at night time # Acute encephalopathy from sepsis and uremia, resolved # Acute on chronic renal failure, with fluid overload Started hemodialysis on April 01, 2023, tolerating well -Receiving hemodialysis, will need hemodialysis as outpatient #Right external iliac femoral venous junction DVT/RLE DVT -CT of the abdomen showed There is some patchy filling defect asymmetry demonstrated about the right external iliac femoral venous junction and could represent some early thrombosis. Consider lower extremity venous Doppler ultrasound. -IMPRESSION: Positive for DVT in the right lower extremity with partial thrombus in right external iliac and common femoral vein. -Eliquis 10 mg twice daily for 10 days, 04/19, followed by 5 twice daily Encephalopathy, resolved -Monitor mentation -Likely secondary bacteremia, C. difficile, DVT, ICU delirium DO NOT RESUSCITATE, patient's is okay with elective intubation if required Nutrition: Ng feeds ongoing, swallow trial Heparin for DVT prophylaxis Protonix for GI prophylaxis Plan for today, up out of bed, continue IV meropenem Attestations Medical Necessity Statement*: Patient requires hospitalization IV antibiotics, meropenem, perforated colon, with intra-abdominal abscess, DVT, persistent leukocytosis Coding Level of Care Code 55083 Moderate MDM includes number and complexity of problems actively addressed during encounter, amount and/or complexity of data reviewed/ordered and described risk of complication, morbidity or mortality of management as documen shyann Diagnoses Bowel perforation K63.1 ASHD (arteriosclerotic heart disease) 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 difficile colitis A04.72 Right leg DVT I82.401
[2023-04-14] MEDS: albumin 12.5 GM/50 ML VIAL IV ×2 (17:59→18:00)
[2023-04-14] MEDS: heparin, porcine 1,000 unit/mL INJ 10 mL 10000 UNIT INTRACATH (18:02)
[2023-04-14] MEDS: pantoprazole 40 mg SDV IVP (20:46)
[2023-04-14] MEDS: quetiapine 100 mg Tablet PO (21:22)
[2023-04-14] MEDS: magnesium hydroxide 30 mL UDC PO (21:22)
[2023-04-14 21:28] LABS: Glucose Point of Care 206 mg/dL (70-110)
[2023-04-15] VITALS (7 sets, daily range): BP systolic 112–148; BP diastolic 62–74; PULSE 74–85; RESP 16–94; TEMP 36.3–36.8; O2SAT 91–96
--- NOTE | 2023-04-15 06:07 | PM.CONSULT ---
Providers/Reason For Consult Consulting Physician/Specialty*: Rina Levine MD/ Infectioud disease Reason for Consult*: persisting leukocytsosi, duration of abx Attending Physician: Felix Hernandez MD Primary Care Provider: Ramiro Villavicencio MD History of Present Illness History of Present Illness Jhon Marcos is a 77 year old male who has had had a prolonged hospital stay after being admitted here on March 27, 2023. Patient had presented to the hospital with septic shock related to the discovery of a perforated colon during colonoscopy as outpatient. CT imaging upon admission showed a deep pelvic abscess measuring 3.9 cm. Blood cultures revealed E. coli and Bacteroides fragilis. Patient has been on treatment with meropenem, de-escalated to piperacillin/tazobactam for a few days in between and vancomycin during the course of this admission. Hospital course has been complicated by interim development of C. difficile infection manifested by diarrhea, return of fever and leukocytosis on April 05, 2023. Last CT of the abdomen performed on April 06, 2023 had shown an overall stable size of the deep pelvic abscess, however patient was noted to have an incidental collection around the spleen for which she underwent IR guided aspiration with contents revealing to be hematoma. Cultures remain negative. He has additionally started hemodialysis this current admission and has a tunneled catheter in place for the same. Patient has a history of chronic kidney disease and was supposed to start peritoneal dialysis, however with the discovery of this perforation and abscess he is no longer a candidate for PD and decision was made to start hemodialysis. Patient has had a slow course to recovery during this hospital admission and is currently clinically improving except for the persistence of leukocytosis for which infectious disease service is consulted. Review of Systems General: Reports: 10 or more systems reviewed and unremarkable except in HPI and below Const: Denies: fever(s), chills or body aches Eyes: Denies: change in vision, blurry vision or photophobia ENMT: Reports: hoarseness; Denies: throat pain, enlarged tonsils, odynophagia or nasal congestion Card: Denies: chest pain, palpitations, irregular heart rhythm, edema, swelling of feet/ankles, lightheadedness, pre-syncope, dyspnea on exertion or orthopnea Resp: Denies: dyspnea, productive cough, non-productive cough, wheezing, stridor, pain on inspiration, change in phlegm color, hemoptysis or chest congestion GI: Denies: abdominal pain, nausea, vomiting, hematemesis, coffee ground emesis, dysphagia, heartburn, diarrhea, constipation, GI cramping, change in stool character, hematochezia or melena : Denies: flank pain, dysuria, urinary frequency, urinary urgency, urinary hesitancy or hematuria Musc: Denies: neck pain, back pain, extremity pain, joint swelling, joint warmth or deformity Neuro: Denies: headache(s), numbness in extremities, weakness in extremities, sensory changes, difficulty walking, frequent falls, dizziness, vertigo, behavioral changes, Slurred speech present or seizure-like activity Psych: Denies: anxiety, depression, suicidal ideation or homicidal ideation Endo: Denies: polyuria, polydipsia, tired all the time, cold intolerance or hot flashes Sebastian/Lymph: Denies: easy bruising or easy bleeding Medications/Allergies Home Medications Medication Instructions Recorded Confirmed Last Taken Type alprazolam 1 mg tablet (Xanax) 1 mg PO BEDTIME PRN Anxiety 11/22/19 03/28/23 03/27/23 History amlodipine 5 mg tablet 5 mg PO BID@,11/22/19 03/28/23 03/21/23 History atorvastatin 40 mg tablet 40 mg PO DAILY@209911/22/19 03/28/23 03/27/23 History bupropion HCl 150 mg 24 hr tablet, 150 mg PO DAILY@79911/22/19 03/28/23 03/27/23 History extended release (Wellbutrin XL) carbidopa 25 mg-levodopa 100 mg 1 tab PO BID@11/22/19 03/28/23 03/27/23 History tablet citalopram 40 mg tablet 40 mg PO DAILY@79911/22/19 03/28/23 03/27/23 History clopidogrel 75 mg tablet 75 mg PO DAILY@79911/22/19 03/28/23 03/21/23 History nitroglycerin 0.4 mg sublingual 0.4 mg sublingual Q5M PRN Chest 11/22/19 03/28/23 03/21/23 History tablet (Nitrostat) Pain propranolol 80 mg capsule,24 80 mg PO DAILY@79911/22/19 03/28/23 03/27/23 History hr,extended release (Inderal LA) bisoprolol 10 1 tab PO DAILY@0800 07/03/20 03/28/23 03/27/23 History mg-hydrochlorothiazide 6.25 mg tablet ferrous fumarate 325 mg (106 mg 325 mg PO DAILY 04/08/22 03/28/23 03/27/23 History iron) tablet finasteride 5 mg tablet 5 mg PO DAILY 04/08/22 03/28/23 03/27/23 History glimepiride 2 mg tablet 2 mg PO DAILY 04/08/22 03/28/23 03/27/23 History quetiapine 50 mg tablet (Seroquel) 100 mg PO DAILY 04/08/22 03/28/23 03/27/23 History sodium bicarbonate 650 mg tablet 650 mg PO BID 04/08/22 03/28/23 03/27/23 History isosorbide mononitrate 30 mg 30 mg PO DAILY #90 tabs 08/29/22 03/28/23 03/27/23 Rx tablet,extended release 24 hr albuterol sulfate 90 mcg/actuation 1 inh inhalation QID PRN shortness 11/14/22 03/28/23 03/21/23 Rx aerosol inhaler (Ventolin HFA) of breath or wheezing #8.5 grams acyclovir 200 mg capsule 200 mg PO 5XD PRN outbreaks 03/28/23 03/28/23 Unknown History calcitriol 0.25 mcg capsule See Rx Instructions .Route .COMPLEX 03/28/23 03/28/23 03/26/23 History cholecalciferol (vitamin D3) 50 100 mcg PO DAILY 03/28/23 03/28/23 03/27/23 History mcg (2,000 unit) tablet (Vitamin D3) pantoprazole 40 mg tablet,delayed 40 mg PO DAILY 03/28/23 03/28/23 03/27/23 History release tamsulosin 0.4 mg capsule 0.4 mg PO BID 03/28/23 03/28/23 03/27/23 History Allergies Allergy/AdvReac Type Severity Reaction Status Date / Time Penicillins Allergy Unknown Unknown Verified 03/21/23 08:36 Current Medications Generic Name Dose Route Start Last Admin Trade Name Freq PRN Reason Stop Dose Admin Acetaminophen 325 mg 04/05/23 22:14 04/05/23 22:54 Acetaminophen 325 Mg/10.15 Ml Udc PO 325 mg Q6H PRN Administration MILD PAIN OR INCREASE TEMP Hydrocodone Bitart/Acetaminophen 1 tab 04/10/23 16:25 04/12/23 21:04 Hydrocodone-Acetaminophen 5-325 Mg Tablet PO 1 tab Q4H PRN Administration MODERATE PAIN Alprazolam 0.5 mg 04/04/23 11:11 04/08/23 21:54 Alprazolam 0.5 Mg Tablet PO 0.5 mg BID PRN Administration Anxiety Amiodarone HCl 200 mg 04/04/23 18:00 04/14/23 19:01 Amiodarone 200 Mg Tablet PO 200 mg BID JOSEPHINE Administration Apixaban 10 mg 04/09/23 18:00 04/14/23 19:02 Apixaban 5 Mg Tablet PO 10 mg Q12H JOSEPHINE Administration Bupropion HCl 150 mg 04/04/23 11:15 04/14/23 08:52 Bupropion Xl (24 Hr) 150 Mg Tablet PO 150 mg DAILY@0800 JOSEPHINE Administration Carbidopa/Levodopa 1 each 04/04/23 21:00 04/14/23 21:22 Carbidopa-Levodopa 25-100mg Tablet PO 1 each BID@ JOSEPHINE Administration Citalopram Hydrobromide 40 mg 04/05/23 08:00 04/14/23 08:52 Citalopram 20 Mg Tablet PO 40 mg DAILY@0800 JOSEPHINE Administration Dextrose 25 ml 03/28/23 08:45 03/28/23 17:29 Dextrose 50% Syringe 50 Ml IVP 25 ml ONCE PRN Administration hypoglycemia protocol Protocol Doxycycline Monohydrate 100 mg 04/12/23 18:00 04/14/23 19:01 Doxycycline 100 Mg Tablet PO 100 mg BID JOSEPHINE Administration Protocol Finasteride 5 mg 04/05/23 09:00 04/14/23 08:52 Finasteride 5 Mg Tablet PO 5 mg DAILY JOSEPHINE Administration Heparin Sodium (Porcine) 10,000 unit 04/08/23 09:27 04/12/23 14:07 Heparin, Porcine 1,000 Unit/Ml Inj 10 Ml INTRACATH 10,000 unit PRN PRN Administration DIALYSIS USE ONLY Meropenem 1,000 mg/ Sodium 50 mls @ 100 mls/hr 04/05/23 11:30 04/14/23 20:57 Chloride IV Infused Q12H JOSEPHINE Infusion Protocol Albumin Human 12.5 gm in 50 mls @ 60 mls/hr 04/13/23 18:39 04/14/23 19:24 Albumin IV Infused PRN PRN Infusion Hypotension and/or symptomatic Insulin Human Lispro 0 unit 03/28/23 12:00 04/14/23 19:02 Insulin Lispro 100 Unit/1 Ml SUBCUT Not Given TIDWM JOSEPHINE Protocol Magnesium Hydroxide 30 ml 04/04/23 21:00 04/14/23 21:22 Magnesium Hydroxide 30 Ml Udc PO 30 ml BEDTIME JOSEPHINE Administration Metoprolol Tartrate 50 mg 04/06/23 21:00 04/14/23 21:22 Metoprolol Tartrate 25 Mg Tablet PO 50 mg BID@0900,2100 JOSEPHINE Administration Pantoprazole Sodium 40 mg 03/27/23 20:30 04/14/23 20:46 Pantoprazole 40 Mg Sdv IVP 40 mg Q24H JOSEPHINE Administration Quetiapine Fumarate 100 mg 04/04/23 21:00 04/14/23 21:22 Quetiapine 100 Mg Tablet PO 100 mg BEDTIME JOSEPHINE Administration Vancomycin HCl 125 mg 04/06/23 13:00 04/14/23 21:21 Vancomycin 1,000 Mg Oral Nano (Btl) PO 125 mg QID JOSEPHINE Administration Additional Medication Information Meropenem 04/05-current ; 03/29-04/02 Zosyn 04/03-04/05 iv vancomycin 03/28-04/10 doxycycline 04/12- current po vancomycin 125 mg QID 04/06-current PFSH Acute PFSH: Medical History ASHD (arteriosclerotic heart disease) BPH (benign prostatic hyperplasia) Diabetes 1.5, managed as type 2 History of stroke HTN (hypertension) Hyperlipidemia Myocardial infarct Surgical History H/O esophagogastroduodenoscopy (09/26/20) History of colonoscopy (09/26/20) History of knee replacement (~2014) History of shoulder replacement S/P knee replacement S/P PTCA (percutaneous transluminal coronary angioplasty) S/P shoulder replacement Family History Mother Dementia Denies family history of Family history of premature coronary artery disease Social History Smoking and tobacco status: former smoker Quit status (tobacco): has quit using tobacco Year quit tobacco: 1971 Former quit date comment: 2ppd x 10 years Alcohol intake: never Household members: spouse Marital status: service: No Current occupational status: retired Vitals/I&O/Wt Last Vital Signs Temp 98.2 F 04/15/23 04:00 Pulse 80 04/15/23 04:00 Resp 17 04/15/23 04:00 BP 114/64 04/15/23 04:00 Pulse Ox 95 04/15/23 04:00 O2 Del Method Room Air 04/15/23 04:00 O2 Flow Rate 2 04/07/23 20:00 FiO2 2 03/29/23 07:48 04/14/23 04/14/23 04/15/23 14:59 22:59 06:59 Intake Total 480 / 480 601 / 1081 Output Total 2831 / 2831 Balance 480 / 480 -2230 / -1750 Weight last 48 hrs Weight 90.7 kg Weight 92.533 kg Physical Exam Narrative: General: No acute distress, AO x3 however exhibiting confusion and tangential thoughts HEENT: PERRLA, pupils bilaterally equal and reactive, pallors not present Chest: Normal vesicular breath sounds, no added sounds, equal good air entry bilaterally CVS: S1-S2 regular, no murmurs, no tachycardia, no gallops, no rubs Abdomen: Soft, nontender, no organomegaly, bowel sounds present, healed site of previous incisions and drains Neuro: No focal deficits, no facial deformity, AO x3, power 5/5 in all limbs Urinary Catheter Management: Conteh: Cath Placed During This Visit: yes Reason for Continuing Indwelling Catheter: Accurate Measurement of Urinary Output in Critically Ill Patients Urinary Catheter Date of Insertion: 03/27/23 Urinary Catheter Time of Insertion: 19:10 Data 04/14/23 04:11 04/14/23 04:11 Other Labs: ?04/05/23 11:36Blood Culture - Preliminary?Blood?? NEGATIVE TO DATE ?04/05/23 11:40Blood Culture - Preliminary?Blood?? NEGATIVE TO DATE ?03/31/23 12:00Blood Culture - Final?Blood?? NO GROWTH AFTER 5 DAYS ?03/31/23 12:07Blood Culture - Final?Blood?? NO GROWTH AFTER 5 DAYS 03/27: Bacteroides fragilis + E. coli E coli M.I.C. RX --------- ------ * Amikacin <=16 S * Amoxicillin/Clavulanate <=8/4 S * Ampicillin <=8 S * Ampicillin/Sulbactam <=8/4 S * Aztreonam <=4 S * Cefepime <=8 S * Ceftriaxone <=1 S * Cefuroxime <=4 S * Ciprofloxacin <=1 S * Gentamicin 4 S * Imipenem <=1 S * Levofloxacin <=2 S * Tetracycline <=4 S * Trimethoprim/Sulfamethoxazole <=2/38 S * Piperacillin/Tazobactam <=16 S Ordered: Body FL Cult&GS Comments: Comment pleural fluid Procedure Result Verified Site Gram Stain Final 04/09/23161 Result HEAVY WHITE BLOOD CELLS NO ORGANISMS SEEN GRAM STAIN REDO WITH CYTO-SPIN SLIDE * This is a corrected result. * A prior result that was reported as final has been changed. Gram Stain Final (changed) 04/08/23-54 Result FEW WHITE BLOOD CELLS NO ORGANISMS SEEN Body Fluid Culture Final 04/10/23-1415 NO GROWTH ON DAY 3 Body Fluid Culture Preliminary (changed) 04/09/23-1117 NO GROWTH ON DAY 2 Body Fluid Culture Preliminary (changed) 04/08/23-1018 NO GROWTH AT 18-24 HOURS Ordered: Body FL Cult&GS, Anaer Comments: Comment COLLECT IN PURPLE,RED,BLUE,GREEN TOP & CUP Procedure Result Verified Site Gram Stain Final 04/08/2352 Result FEW WHITE BLOOD CELLS NO ORGANISMS SEEN Anaerobic Culture Final 04/14/23-1233 NO ANAEROBES ISOLATED ON DAY 7 Anaerobic Culture Preliminary (changed) 04/13/23-1346 NO ANAEROBES ISOLATED ON DAY 6 Anaerobic Culture Preliminary (changed) 04/12/23-1002 NO ANAEROBES ISOLATED ON DAY 5 Anaerobic Culture Preliminary (changed) 04/11/23-1004 NO ANAEROBES ISOLATED ON DAY 4 Anaerobic Culture Preliminary (changed) 04/10/23-1629 NO ANAEROBES ISOLATED ON DAY 3 Anaerobic Culture Preliminary (changed) 04/09/23-1656 NO ANAEROBES ISOLATED ON DAY 2 Anaerobic Culture Preliminary (changed) 04/08/23-1601 NO ANAEROBES ISOLATED ON DAY 1 Body Fluid Culture Final 04/10/23-1417 NO GROWTH ON DAY 3 Body Fluid Culture Preliminary (changed) 04/09/23-1118 NO GROWTH ON DAY 2 Body Fluid Culture Preliminary (changed) 04/08/23-1020 NO GROWTH AT 18-24 HOURS Micro: Microbiology 04/07/23 16:20 Gram Stain - Final Peritoneal Fluid Anaerobic Culture - Final Body Fluid Culture - Final Other data: Launch?[place] [address] [place] Scan Report Signed with Addenda Patient: Jhon Marcos Unit #: [id number] : 1945 Age/Sex: 77 / M ADM Date: 03/27/23 Loc: ICU Room/Bed: [place] [address]: Eric Light DO Ordering Provider/Ordering MD: Kasi Levine MD Date of Service: 04/06/23 Procedure(s): CT abdomen pelvis w con* [id number] Accession Number(s): [id number] Report Number: [id number] ADDENDUM Addendum Dictated By: ? Addendum Signed By: ? Signed Date/Time: Addendum Cosigned By: Mychal? Ty 04/06/23 1537 ADDENDUM Addendum Dictated By: ? Addendum Signed By: ? Signed Date/Time: Addendum Cosigned By: Mychal? Ty 04/06/[address]/CT abdomen pelvis w con* [id number] Comparison was also performed to the study of 03/29/2023.? The perisplenic fluid collection while slightly larger compared to the 7th appears intervally larger overall as compared to the 2nd.? No air-fluid level within this is currently appreciated although the potential of progressive abscess inflammation at this site is of concern.? Consider overall percutaneous sampling and possible drainage.? Findings were discussed with the ordering clinician at the time of presentation for dictation. ? Addendum Dictated By: ?Aleksandar Adam Addendum Signed By: ?Aleksandar Adam Signed Date/Time: 04/06/23 1537 Addendum Cosigned By: ? ADDENDUM CT/CT abdomen pelvis w con* [id number] THIS REPORT CONTAINS FINDINGS THAT MAY BE CRITICAL TO PATIENT CARE. The findings were verbally communicated via telephone conference at 1:58 PM CDT on 04/06/2023 with RINA LEVINE. The findings were acknowledged and understood. ? Addendum Dictated By: ?Mahsa Adamella Addendum Signed By: ?Aleksandar Adam Signed Date/Time: 04/06/23 1400 Addendum Cosigned By: ? PROCEDURE INFORMATION: Exam: CT Abdomen And Pelvis With Contrast Exam date and time: 04/06/2023 12:59 PM Age: 77 years old Clinical indication: Fever; Prior surgery; Surgery date: 1-6 months; Surgery type: Colon; Additional info: Recurrent fever, known intraabdominal abscess from perforated diverticulitis,No history of trauma is provided. TECHNIQUE: Imaging protocol: Computed tomography of the abdomen and pelvis with contrast. 260image(s) are provided. Radiation optimization: All CT scans at this facility use at least one of these dose optimization techniques: automated exposure control; mA and/or kV adjustment per patient size (includes targeted exams where dose is matched to clinical indication); or iterative reconstruction. Contrast material: OMNI 350; Contrast volume: 100 ml; Contrast route: INTRAVENOUS (IV);? Other technique: Axial images are available with sagittal and coronal reconstruction views. Automated dose exposure control is utilized. The DLP is 1675.13. REPORTING DATA: Count of CT and Cardiac NM exams in prior 12 months: This patient has received 4 known CTs and 0 known cardiac nuclear medicine studies in the 12 months prior to the current study. COMPARISON: CT abdomen pelvis w con* [id number] 04/03/2023 10:[address] chest same day. RADIATION DOSE METRICS: Total DLP (mGy-cm): 1032 FINDINGS: Tubes, catheters and devices: The gastric tube remains. The right femoral line previously visualized is no longer appreciated. The interventional drain remains. Lungs: The lung base findings correlate with the CT chest description same day. Liver: There are some liver granulomatous related changes present. Gallbladder and bile ducts: The gallbladder appears slightly patulous with some trace sludge.? This can also be seen with some vicarious excretion. Pancreas: No pancreatic ductal dilatation or calculus is currently appreciated. Spleen: There is similar overall spleen granulomatous along with perisplenic fluid related changes with central Hounsfield units of approximately 20. Adrenal glands: There is some adrenal hypertrophy. Kidneys and ureters: There are multiple renal cystic appearing changes similar with the previous descriptions.? Some demonstrate calcification. Stomach and bowel: There is some subtle stranding along with some minimal residual fluid for example about the descending colon lateral margin similar overall. There is history of abdominal abscess and appears similar in location between the rectum and bladder margin. There is some punctate air within similar. The greatest dimensions currently are approximately 5.3 x 3.7 x 5.6 cm. This appears slightly larger overall. This also abuts the adjacent bowel margin. Some aspects of the colon are undistended. This may also be peristaltic related.There is some stool present limiting mucosal detail evaluation.The bowel gas pattern appears nonobstructive. Appendix: There is an unremarkable appearance of the appendix demonstrated. Intraperitoneal space: No layering free air is currently appreciated. There is some mesenteric and omental stranding similar overall. Vasculature: No interval abdominal aortic aneurysmal dilatation or periaortic fluid is appreciated. There is some irregular filling appearance about the right external iliac and femoral venous junction in the interval which could be seen with some early partial thrombosis. Lymph nodes: There are some reactive appearing lymph node changes similar overall. Urinary bladder: There is some punctate bladder air present. Reproductive: Unremarkable as visualized. Bones/joints: Osseous alignment is maintained.No interval displaced fracture or dislocation is appreciated.There is slightly decreased bone mineralization overall. There is chronic multilevel degeneration of the lumbar spine again demonstrated. There are chronic appearing rib deformities present. There is some persistent stranding and may be subtly increased along the right iliac psoas margin. Soft tissues: No radiopaque foreign body or subcutaneous emphysema is appreciated. There are overlying skin celina present. There is some slight subcutaneous tissue stranding similar along with some minimal punctate air for example on the left. This could be seen with some injection or interventional related sequela along with the midline celina and seroma type appearance. No internal air-fluid levels of the expected seroma site is currently appreciated. The density is somewhat increased at 20 Hounsfield units and therefore could also represent some complexity or early inflammation. Other findings: There is some motion artifact present. No other significant interval changes are appreciated. CT/CT abdomen pelvis w con* [id number] IMPRESSION: 1. ? There is some patchy filling defect asymmetry demonstrated about the right external iliac femoral venous junction and could represent some early thrombosis. Consider lower extremity venous Doppler ultrasound. 2. ? The previously described seroma area of the anterior abdominal wall appears slightly larger overall. Consider if there is associated skin drainage as some early inflammation could also present in this fashion. 3. ? The percutaneous drain remains similar overall in location and orientation extending to the left lateral abdomen. No discrete fluid collections directly adjacent to this are appreciated although there is some subtle stranding as well as some marginal fluid about the lateral margin of the descending colon similar otherwise. 4. ? There is a previously described abscess type collection between the rectum and bladder which appears slightly larger overall in the interval. Procedure(s): CT abdomen pelvis w con* [id number] Accession Number(s): [id number] Report Number: [id number] WS: [id number] CT ABDOMEN PELVIS TECHNIQUE: Contrast-enhanced CT of the abdomen and pelvis with coronal and sagittal reformatted images. CLINICAL INFORMATION: follow up intra-abdominal abscess COMPARISON: CT 03/29/2023 DLP: 1062.[address] scans at [facility] use at least one of these dose optimization techniques: automated exposure control; mA and/or kV adjustment per patient size (includes targeted exams where dose is matched to clinical indication); or iterative reconstruction. FINDINGS: Small bilateral pleural effusions improved compared to previous. Bibasilar atelectasis. Small pericardial effusion. Diffuse fatty infiltration of the liver. Fluid distended gallbladder. Normal splenic enhancement. Enteric enteric tube with tip in the stomach. Adrenal glands are normal. Normal portal vein and splenic vein. Normal pancreatic parenchymal enhancement. Normal caliber abdominal aorta. Celiac and SMA are patent. Bilateral renal cortical atrophy. Bilateral renal cysts. No hydronephrosis. Conteh catheter. Midline abdominal incision with underlying subcutaneous postoperative seroma measuring 4.9 x 3.8 cm. Surgical drain in the abdomen and pelvis. Small amount of free fluid in the pelvis interposed between the bladder and rectum stable compared to previous with a small amount of nondependent air. This measures approximately 3.8 x 2.2 cm. Normal sigmoid colon. No other significant changes. IMPRESSION: 1.? Improved bilateral pleural effusions and bibasal atelectasis. 2.? Small pericardial effusion. 3.? Postoperative abdominal changes with seroma deep to the incision in the subcutaneous soft tissues described above. 4.? Previously described fluid collection in the deep pelvis between the rectum and bladder appears unchanged measuring 3.8 x 2.2 cm and may represent small amount of postoperative fluid versus abscess. Launch?[facility] [address] [place] [address]. [place] [address] CT Scan Report Signed with Pioenda Patient: Jhon Marcos Unit #: [id number] : 1945 Age/Sex: 77 / M ADM Date: 03/27/23 Loc: ICU Room/Bed: [place] [address]: Eric Light DO Ordering Provider/Ordering MD: Felix Hernandez MD Date of Service: 03/29/23 Procedure(s): [place] [id number] Accession Number(s): [id number] Report Number: [id number]/[place] [id number] THIS REPORT CONTAINS FINDINGS THAT MAY BE CRITICAL TO PATIENT CARE. The findings were verbally communicated via telephone conference with FELIX Kulkarni at 5:24 PM CDT on 03/29/2023. The findings were acknowledged and understood. ? Addendum Dictated By: ?Lanre Pelletier MD Addendum Signed By: ?Lanre Pelletier MD Signed Date/Time: 03/29/23 8137 Addendum Cosigned By: ? PROCEDURE INFORMATION: Exam: CT Chest Without Contrast; Diagnostic Exam date and time: 03/29/2023 3:40 PM Age: 77 years old Clinical indication: Abdominal tenderness; Shortness of breath; Additional info: AMS TECHNIQUE: Imaging protocol: Diagnostic computed tomography of the chest without contrast. Radiation optimization: All CT scans at this facility use at least one of these dose optimization techniques: automated exposure control; mA and/or kV adjustment per patient size (includes targeted exams where dose is matched to clinical indication); or iterative reconstruction. REPORTING DATA: Count of CT and Cardiac NM exams in prior 12 months: This patient has received 2 known CTs and 0 known cardiac nuclear medicine studies in the 12 months prior to the current study. COMPARISON: CR (CHEST, ) 03/29/2023 7:51 AM RADIATION DOSE METRICS: Total DLP (mGy-cm): 920.72 FINDINGS: Tubes, catheters and devices: There is a feeding tube present with its tip in the stomach. Right-sided venous catheter tip near superior cavoatrial junction. Lungs: Hypoventilatory changes in the trachea. Pleural spaces: Small bilateral pleural effusions. Small bilateral pleural effusions. Consolidation is seen bilaterally in the lower lobes in the posterior upper lobes adjacent to the pleural fluid. Heart: Small-sized pericardial effusion. Coronary arteries: Marked coronary artery atherosclerosis. Lymph nodes: Calcified lymph nodes left hilum. Vasculature: Normal for age. No aortic aneurysm.? Bones/joints: Right shoulder replacement with associated beam hardening artifact. Soft tissues: Bilateral mild gynecomastia. PROCEDURE INFORMATION: Exam: CT Abdomen And Pelvis Without Contrast Exam date and time: 03/29/2023 3:40 PM Age: 77 years old Clinical indication: Abdominal tenderness; Shortness of breath; Additional info: AMS TECHNIQUE: Imaging protocol: Computed tomography of the abdomen and pelvis without contrast. Radiation optimization: All CT scans at this facility use at least one of these dose optimization techniques: automated exposure control; mA and/or kV adjustment per patient size (includes targeted exams where dose is matched to clinical indication); or iterative reconstruction. REPORTING DATA: Count of CT and Cardiac NM exams in prior 12 months: This patient has received 2 known CTs and 0 known cardiac nuclear medicine studies in the 12 months prior to the current study. COMPARISON: CT abdomen pelvis wo con [id number] 07/03/2020 6:21 PM RADIATION DOSE METRICS: Total DLP (mGy-cm): 920.72 FINDINGS: Tubes, catheters and devices: Feeding tube tip is seen in the stomach. There is a surgical drain present in the lower abdomen/pelvis. Liver: Normal. No mass. Gallbladder and bile ducts: There is minimal hyperdense material in the gallbladder which may be sludge or stones. No adjacent inflammation. Pancreas: Normal. No ductal dilation. Spleen: Splenic granulomata. Adrenal glands: Thickened appearance of the adrenals is unchanged. This is likely related to adenomatous hyperplasia. Kidneys and ureters: Multiple bilateral renal cysts are unchanged. Stomach and bowel: There is a small collection of fluid and gas in the deep pelvis anterior to the rectum for example on series 9, image 80 measuring 2.8 x 3.9 cm maximum size. The colon contains diverticuli with distal colonic wall thickening versus underdistention. No bowel obstruction. Appendix: No evidence of appendicitis. Intraperitoneal space: There is a small focus of free air lateral to the descending colon favored to be postoperative. Small volume ascites in the upper abdomen adjacent to the spleen. Vasculature: Normal for age. No abdominal aortic aneurysm. Lymph nodes: Unremarkable. No enlarged lymph nodes. Urinary bladder: There is a Conteh catheter in the bladder. Reproductive: Unremarkable as visualized. Bones/joints: No acute fracture. Soft tissues: There is minimal fluid in the ventral abdominal wall soft tissues deep to the skin celina measuring 3.4 x 2.0 cm for example on series 9, image 83 likely a seroma. Mild diffuse body wall edema. Left-sided fat containing inguinal hernia is unchanged. CT/[place] [id number] IMPRESSION: Small bilateral pleural effusions with adjacent dependent consolidation or atelectasis. Correlate for pneumonia. ? ? IMPRESSION: 1. ? There is minimal free intraperitoneal air present which is likely postoperative given history of colonic surgery. A pelvic surgical drain is in place. 2. ? Small collection of fluid and gas in the deep pelvis measuring 3.9 cm maximum size suspicious for an abscess. There is also a simple appearing fluid collection deep to the ventral midline abdominal wound measuring 3.4 cm favored to be a seroma. 3. ? Wall thickening versus underdistention in the distal colon. Correlate for possible colitis. ? FINDINGS: ?Follow-up post biopsy chest x-ray demonstrates no pneumothorax or other new findings. Essentially unchanged chest x-ray when compared to today's earlier exam. XR/XR chest 1V portable [id number] IMPRESSION: As above. ? A&P Assessment and plan (1) C. difficile colitis: (2) Intra-abdominal abscess: (3) Gram-negative bacteremia: (4) Acute renal failure: (5) Bowel perforation: Plan #?Septic shock This was present on admission.? Shock now resolved Related to discovery of a perforated colon during colonoscopy. CT imaging upon admission showed deep pelvic abscess measuring 3.9 cm.? Follow-up CT 04/04 and 04/06 with overall stable size of abscess. Additional seroma underlying incision site Blood culture from 03/27 reported with E. coli and Bacteroides fragilis Follow-up blood cultures from March 31, 2023 thus far negative to date. He has been on appropriate antibiotic coverage based on susceptibility data with meropenem for most of the admission course. Recommend to obtain repeat CT imaging for interval follow up If Abscess resolved, can discontinue abx likely If persisting, may need longer course, however can likely transition to otal abx in this case. #Intra-abdominal abscess, as above Stable on serial follow up, not amenable to IR drainage check CT today for interval changes # persisting leukocytosis without other signs of untreated infection. Likely margination vs marrow recovery # C diff , currently diarrhea resolved. Continue po vancoomycin for 14 days or till end of abx course, whichever comes later Will follow with repeat imaging. Coding Level of Care Code Acute Code for Chg Fwd High MDM includes number and complexity of problems actively addressed during encounter, amount and/or complexity of data reviewed/ordered and described risk of complication, morbidity or mortality of management as documented Diagnoses C. difficile colitis A04.72 Intra-abdominal abscess K65.1 Gram-negative bacteremia R78.81 Acute renal failure N17.9 Bowel perforation K63.1
[2023-04-15] MEDS: apixaban 5 mg Tablet 10 MG PO ×2 (06:17→17:28)
[2023-04-15 06:24] LABS: Basophils # 0.1 10^3/uL (0.0-0.1); Basophils % 0.4 %; Eosinophils # 0.3 10^3/uL (0.0-0.8); Eosinophils % 1.8 %; Hematocrit 29.1 % (37-53); Lymphocytes # 2.1 10^3/uL (0.8-4.8); Lymphocytes % 13.1 %; Mean Corpuscular HGB Conc 30.2 g/dL (30-55); Monocytes # 1.6 10^3/uL (0.2-0.9); Monocytes % 9.8 %; Neutrophils # 11.35 10^3/uL (1.8-7.7); Neutrophils % 71.3 %; Nucleated Red Blood Cells % 0 %; Platelet Count 437 10^3/cmm (157-399); Red Blood Count 3.03 10^6/uL (3.85-5.65); White Blood Count 15.93 10^3/uL (3.29-11.43)
[2023-04-15 06:38] LABS: Glucose Point of Care 136 mg/dL (70-110)
--- NOTE | 2023-04-15 07:00 | CT_ITS ---
WS: [id number] CT ABDOMEN PELVIS TECHNIQUE: Contrast-enhanced CT of the abdomen and pelvis with coronal and sagittal reformatted image s. CLINICAL INFORMATION: perforated abdomen, abdominal abscess COMPARISON: CT 04/06/2023 DLP: 854.[address] scans at [facility] use at least one of these dose optimization techniques: automated e xposure control; mA and/or kV adjustment per patient size (includes targeted exams where dose is matc hed to clinical indication); or iterative reconstruction. FINDINGS: Previously described pelvic abscess interposed between the bladder and rectum slightly decreased in s ize today measuring 2.6 x 3.9 x 3.6 cm compared to 2.7 x 4.8 x 5.0 cm AP by transverse by craniocauda l. Small LEFT pleural effusion with compressive atelectasis LEFT lower lobe stable since 04/06/2023. Tiny pericardial effusion. Subsegmental atelectasis RIGHT lower lobe. Diffuse fatty infiltration of the liver. Normal GE junction. Air-fluid levels in the stomach. Normal portal vein and splenic vein. Normal pancreas. Mild bilateral adrenal thickening. Small RIGHT adrenal adenoma. Bilateral renal atrophy. Bilateral renal cysts. No hydronephrosis. Normal caliber abdominal aorta. Low-attenuation fluid collection about the spleen has decreased in size compared to previous. Associa shyann enhancement along the pleura and diaphragm likely reactive. Seroma along the umbilical incision site similar in appearance to previous. IMPRESSION: 1. Previously described pelvic abscess slightly decreased in size compared to previous described abo ve. 2. Low-attenuation fluid about the spleen thought to represent blood products has significant improv ed compared to previous. 3. Small LEFT pleural effusion with compressive atelectasis appears stable. Small pericardial effusi on. 4. Seroma along the umbilical incision site is stable compared to previous. 5. No other new findings.
[2023-04-15] MEDS: doxycycline 100 mg Tablet PO (08:25)
[2023-04-15] MEDS: buPROPion XL (24 HR) 150 mg Tablet PO (08:25)
[2023-04-15] MEDS: metoprolol tartrate 25 mg Tablet 50 MG PO ×2 (08:25→22:03)
[2023-04-15] MEDS: amiodarone 200 mg Tablet PO ×2 (08:25→17:29)
[2023-04-15] MEDS: carbidopa-levodopa 25-100mg Tablet 1 EACH PO ×2 (08:25→22:04)
[2023-04-15] MEDS: citalopram 20 mg Tablet 40 MG PO (08:26)
[2023-04-15] MEDS: finasteride 5 mg Tablet PO (08:26)
[2023-04-15] MEDS: iohexol 350 mg/mL 500 mL Btl (per mL) IV (09:14)
--- NOTE | 2023-04-15 09:29 | PM.PN ---
Subjective Subjective: No new complaints Medications: Reviewed: Yes Vitals/I&O/Wt Last Vital Signs Temp 98 F 04/15/23 08:00 Pulse 82 04/15/23 08:00 Resp 16 04/15/23 08:00 BP 113/68 04/15/23 08:00 Pulse Ox 93 04/15/23 08:00 O2 Del Method Room Air 04/15/23 08:00 O2 Flow Rate 2 04/15/23 08:00 FiO2 2 03/29/23 07:48 04/14/23 04/15/23 04/15/23 22:59 06:59 14:59 Intake Total 601 / 1081 240 / 240 Output Total 2831 / 2831 Balance -2230 / -1750 240 / 240 Weight last 48 hrs Weight 90.7 kg Weight 92.533 kg Physical Exam Narrative: awake , alert HEENT PEERLA + edema Extremity: NARRATIVE EXTREMITY EXAM: trace edema Urinary Catheter Management: Conteh: Cath Placed During This Visit: yes Reason for Continuing Indwelling Catheter: Accurate Measurement of Urinary Output in Critically Ill Patients Urinary Catheter Date of Insertion: 03/27/23 Urinary Catheter Time of Insertion: 19:10 Data 04/15/23 05:52 04/14/23 04:11 Micro: Microbiology 04/07/23 16:20 Gram Stain - Final Peritoneal Fluid Anaerobic Culture - Final Body Fluid Culture - Final A&P Assessment and plan (1) MAYTE (acute kidney injury): Plan 1. Acute kidney injury due to sepsis, 2. E.coli (pansensitive) sepsis s/p repair of perforated sigmoid colon, now has abdominal abscess , was not able to drain , repeat CT per ID 3. Increased anion gap metabolic acidosis due to lactate and renal impairment. Resolved with sodium bicarbonate infusion. 4. new onset atrial fibrillation 5. 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 possible polycystic kidney disease, baseline eGFR 15 ml/min 6. Anemia, history of recent transfusion, iron deficient, received transfusion pRBC 7. History of diabetes, hypertension, coronary artery disease 8. pleural effusion Discussed in detail with at bedside. s/p PC placement on 04/01. , HD started . Socia work to arrange for out pt HD , can do twice /week HD HD tomorrow Attestations Medical Necessity Statement*: per medicine team Coding Level of Care Code Acute Code for Chg Fwd Diagnoses MAYTE (acute kidney injury) N17.9
[2023-04-15 11:07] LABS: Glucose Point of Care 231 mg/dL (70-110)
[2023-04-15 11:11] LABS: Blood Urea Nitrogen 34 mg/dL (8-23); Calcium 8.9 mg/dL (8.5-10.5); Carbon Dioxide 22 mmol/L (22-29); Chloride 89 mmol/L (98-107); Glucose 221 mg/dL (65-115); Osmolality Calculated 282 mOsm/kg (285-295); Sodium 129 mmol/L (136-145)
[2023-04-15 11:14] LABS: Anion Gap 22.1 (5-19); Potassium 4.1 mmol/L (3.5-5.1)
[2023-04-15] MEDS: meropenem 1,000 MG in sodium chloride 0.9% (plus) 50 ML 100 MG IV (11:43)
[2023-04-15] MEDS: insulin lispro 100 unit/1 mL SUBCUT (11:44)
--- NOTE | 2023-04-15 16:21 | P.PN_ITS ---
Subjective Subjective: Patient was seen this morning, denies any fevers, no chills, no cough alert oriented x3, does report generalized weakness, no abdominal pain, does have a good appetite, according to nursing staff he is still unsteady on his feet, requires assistance, I discussed his CT scan, will do CT scan, if he continues to have intra-abdominal abscess, will likely transition him to p.o. Cipro and Flagyl, if there is no significant radiographic evidence of intra-abdominal abscess, then we can stop antibiotics, he voiced understanding, all questions answered, Vitals/I&O/Wt Last Vital Signs Temp 97.4 F L 04/15/23 16:00 Pulse 74 04/15/23 16:00 Resp 16 04/15/23 16:00 BP 116/67 04/15/23 16:00 Pulse Ox 95 04/15/23 16:00 O2 Del Method Room Air 04/15/23 16:00 O2 Flow Rate 2 04/15/23 08:00 FiO2 2 03/29/23 07:48 04/15/23 04/15/23 04/15/23 06:59 14:59 22:59 Intake Total 480 / 480 Balance 480 / 480 Weight last 48 hrs Weight 90.7 kg Weight 92.533 kg Physical Exam Const: COMMON NORMALS: no acute distress and patient oriented x3 Resp: COMMON NORMALS: normal respiratory effort, No retractions, No use of accessory muscles and clear to auscultation bilaterally AUSCULTATION: clear to auscultation bilaterally Cardio: COMMON NORMALS: regular rate, regular rhythm, S1 normal heart sound present and S2 normal heart sound present RATE: regular rate RHYTHM: regular rhythm HEART SOUNDS: S1 normal heart sound present and S2 normal heart sound present GI: COMMON NORMALS: Normal to inspection, nondistended, normoactive bowel sounds present and non-tender OTHER: Surgical site looks clean and dry Extremity: COMMON NORMALS: no pedal edema Neuro: COMMON NORMALS: patient oriented x3 Psych: COMMON NORMALS: mental status grossly normal Urinary Catheter Management: Conteh: Cath Placed During This Visit: yes Reason for Continuing Indwelling Catheter: Accurate Measurement of Urinary Output in Critically Ill Patients Urinary Catheter Date of Insertion: 03/27/23 Urinary Catheter Time of Insertion: 19:10 Data 04/15/23 05:52 09/19/23 10:10 Micro: Microbiology 04/07/23 16:20 Gram Stain - Final Peritoneal Fluid Anaerobic Culture - Final Body Fluid Culture - Final A&P Assessment and plan (1) Bowel perforation: (2) ASHD (arteriosclerotic heart disease): (3) Diabetes 1.5, managed as type 2: (4) HTN (hypertension): (5) Hyperlipidemia: (6) Septic shock: (7) Acute renal failure: (8) Acute encephalopathy: (9) E coli bacteremia: (10) CHRISTY (obstructive sleep apnea): (11) Gram-positive bacteremia: (12) Acute respiratory failure with hypoxia: (13) Systolic CHF: (14) Atrial fibrillation with RVR: (15) Intra-abdominal abscess: (16) Pleural effusion, left: (17) Iliac DVT (deep venous thrombosis): (18) C. difficile colitis: (19) Right leg DVT: Plan # Fever with persistent leukocytosis -Remains afebrile , leukocytosis stable -Patient has a left pleural effusion, no growth so far -left perisplenic fluid collection growth of based on clinical progress and results -Has a right PICC line in place, possible source of infection? PICC line was accidentally removed by patient, culture tip no growth so far -Has received 5 days of fungal coverage -Respiratory viral panel negative -Chest CT no new infiltrate but does have a left lung compressive atelectasis, currently on room air -c diff vancomycin 125 mg 4 times for C. difficile colitis, last day 04/21/2023 CT scan abdomen pelvis IMPRESSION: 1.? Previously described pelvic abscess slightly decreased in size compared to previous described above. 2.? Low-attenuation fluid about the spleen thought to represent blood products has significant improved compared to previous. 3.? Small LEFT pleural effusion with compressive atelectasis appears stable. Small pericardial effusion. 4.? Seroma along the umbilical incision site is stable compared to previous. 5.? No other new findings. -As patient remains afebrile, white blood cell count is stable, repeat blood cultures are negative, I am going to stop meropenem today -Switch to Cipro and Flagyl p.o., and can be discharged with this -Spoke to infectious disease #Left pleural effusion -Status post drainage, 400 cc removed, clear, yellow, -LDH 2556, TP 3.7 -no growth so far -few wbc #Left perisplenic fluid collection, blood -50cc blood removed -no growth so far # c diff colitis -coutinue po vancomycin, as above #Intra-abdominal abscess -?There is history of abdominal abscess and appears similar in location between the rectum and bladder margin. There is some punctate air within similar. The greatest dimensions currently are approximately 5.3 x 3.7 x 5.6 cm. This appears slightly larger overall. This also abuts the adjacent bowel margin Repeat CT -MPRESSION: 1.? Previously described pelvic abscess slightly decreased in size compared to previous described above. 2.? Low-attenuation fluid about the spleen thought to represent blood products has significant improved compared to previous. 3.? Small LEFT pleural effusion with compressive atelectasis appears stable. Small pericardial effusion. 4.? Seroma along the umbilical incision site is stable compared to previous. 5.? No other new findings. -As above #Seroma at incision site # Septic shock Resolved Related to discovery of a perforated colon during colonoscopy.ite Blood culture from 03/27 reported with E. coli and Bacteroides fragilis Follow-up blood cultures from March 31, 2023 thus far negative to date. He has been on appropriate antibiotic coverage based on susceptibility data. #Perforated bowel Status exploratory laparotomy, with repair of colotomy, post abdominal washout Managed per general surgery swallow trial passed today, expected to start diet #Intermittent A-fib with RVR - has been in sinus rhythm over the past week Amiodarone 200 p.o. two times daily, increase metoprolol 50 mg p.o. twice daily suspect that transient atrial fibrillation was related to sepsis -With his chronic anemia and hemoglobin dropped down to 5.0 in the recent past with suspected recent GI source of bleeding, do not believe patient will be a candidate for outpatient DOACs. # Acute hypoxic respiratory failure - now resolved Multifactorial,-Secondary to fluid overload from MAYTE on CKD and systolic CHF -Started hemodialysis with improvement in respiratory status -Pleural effusions have resolved , no consolidation # NSTEMI vs type II VA from demand supply mismatch related to sepsis. However cannot rule out ischemic etiology completely given that ejection fraction currently has dropped to 40 to 45% with mild global hypokinesia. Last stress test in May 2022 had shown a small sized fixed perfusion abnormality of mild severity in the basal to inferolateral lujan. He has been evaluated by cardiology as outpatient and medical management was opted in view of his CKD. # Obstructive sleep apnea, BiPAP at night time # Acute encephalopathy from sepsis and uremia, resolved # Acute on chronic renal failure, with fluid overload Started hemodialysis on April 01, 2023, tolerating well -Receiving hemodialysis, will need hemodialysis as outpatient #Right external iliac femoral venous junction DVT/RLE DVT -CT of the abdomen showed There is some patchy filling defect asymmetry demonstrated about the right external iliac femoral venous junction and could represent some early thrombosis. Consider lower extremity venous Doppler ultrasound. -IMPRESSION: Positive for DVT in the right lower extremity with partial thrombus in right external iliac and common femoral vein. -Eliquis 10 mg twice daily for 10 days, 04/19, followed by 5 twice daily Encephalopathy, resolved -Monitor mentation -Likely secondary bacteremia, C. difficile, DVT, ICU delirium DO NOT RESUSCITATE, patient's is okay with elective intubation if required Nutrition: Ng feeds ongoing, swallow trial Heparin for DVT prophylaxis Protonix for GI prophylaxis Plan for today, up out of bed, CT scan abdomen pelvis ordered, spoke to infect ious disease, stop meropenem, switch to Cipro, Flagyl, stop doxycycline Attestations Medical Necessity Statement*: Patient requires hospitalization for intra-abdominal abscess, perforated colon, DVT, C. difficile Diagnoses Bowel perforation K63.1 ASHD (arteriosclerotic heart disease) 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 difficile colitis A04.72 Right leg DVT I82.401
[2023-04-15 17:08] LABS: Glucose Point of Care 118 mg/dL (70-110)
[2023-04-15 21:19] LABS: Glucose Point of Care 260 mg/dL (70-110)
[2023-04-15] MEDS: magnesium hydroxide 30 mL UDC PO (22:02)
[2023-04-15] MEDS: ciprofloxacin 500 mg Tablet PO (22:03)
[2023-04-15] MEDS: metroNIDAZOLE 500 MG Tablet PO (22:03)
[2023-04-15] MEDS: quetiapine 100 mg Tablet PO (22:04)
[2023-04-15] MEDS: pantoprazole 40 mg SDV IVP (22:05)
[2023-04-16] VITALS (11 sets, daily range): BP systolic 106–140; BP diastolic 61–78; PULSE 66–91; RESP 15–20; TEMP 36.4–36.8; O2SAT 92–97
--- NOTE | 2023-04-16 04:35 | P.PN_ITS ---
Subjective Subjective: Infectious disease progress note. Remains afebrile, white blood cell count is stable. CT of the abdomen and pelvis was completed earlier today which showed his pelvic abscess is improving. Previously measuring 2.7 x 4.8 x 5 cm, today noted to be 2.6 x 3.9 x 3.6 cm. No new changes. Patient continues to be clinically stable Medications: Reviewed: Yes Medication Review Details: Meropenem 04/05-current ; 03/29-04/02 Zosyn 04/03-04/05 iv vancomycin 03/28-04/10 doxycycline 04/12- current po vancomycin 125 mg QID 04/06-current Vitals/I&O/Wt Last Vital Signs Temp 98.1 F 04/16/23 04:00 Pulse 70 04/16/23 04:00 Resp 17 04/16/23 04:00 BP 127/61 04/16/23 04:00 Pulse Ox 92 04/16/23 04:00 O2 Del Method Room Air 04/16/23 04:00 O2 Flow Rate 2 04/15/23 08:00 FiO2 2 03/29/23 07:48 04/15/23 04/15/23 04/16/23 14:59 22:59 06:59 Intake Total 480 / 480 240 / 720 Balance 480 / 480 240 / 720 Weight last 48 hrs Weight 90.7 kg Weight 92.533 kg Physical Exam Narrative: General: No acute distress, AO x3 however exhibiting confusion and tangential thoughts HEENT: PERRLA, pupils bilaterally equal and reactive, pallors not present Chest: Normal vesicular breath sounds, no added sounds, equal good air entry bilaterally CVS: S1-S2 regular, no murmurs, no tachycardia, no gallops, no rubs Abdomen: Soft, nontender, no organomegaly, bowel sounds present, healed site of previous incisions and drains Neuro: No focal deficits, no facial deformity, AO x3, power 5/5 in all limbs Urinary Catheter Management: Conteh: Cath Placed During This Visit: yes Reason for Continuing Indwelling Catheter: Accurate Measurement of Urinary Output in Critically Ill Patients Urinary Catheter Date of Insertion: 03/27/23 Urinary Catheter Time of Insertion: 19:10 Data 04/15/23 05:52 04/15/23 10:10 Other Labs: IMPRESSION: 1.? Previously described pelvic abscess slightly decreased in size compared to previous described above. 2.? Low-attenuation fluid about the spleen thought to represent blood products has significant improved compared to previous. 3.? Small LEFT pleural effusion with compressive atelectasis appears stable. Small pericardial effusion. 4.? Seroma along the umbilical incision site is stable compared to previous. 5.? No other new findings. A&P Assessment and plan (1) C. difficile colitis: (2) Intra-abdominal abscess: (3) Gram-negative bacteremia: (4) Acute renal failure: (5) Bowel perforation: Plan 77-year-old male admitted to the hospital on March 27, 2023 with septic shock related to? perforated colon discovered during colonoscopy. He is status post exploratory laparoscopy and abdominal washout on day of admission. CT imaging upon admission showed deep pelvic abscess measuring 3.9 cm.? Follow- up CT 04/04 and 04/06 with overall stable size of abscess. CT abdomen and pelvis performed today showing improving size of the abscess as noted above. Blood culture from 03/27 reported with E. coli and Bacteroides fragilis Follow-up blood cultures from March 31, 2023 thus far negative to date. Discontinue meropenem today. Change antibiotic coverage to oral ciprofloxacin and metronidazole in anticipation of upcoming discharge. Follow-up CT abdomen and pelvis in 2 weeks as outpatient. Expect continued improvement. #Intra-abdominal abscess, as above Improving on serial follow up, not amenable to IR drainage # persisting leukocytosis without other signs of untreated infection. Likely margination vs marrow recovery # C diff , currently diarrhea resolved. Continue po vancoomycin until end of his antibiotic course with Cipro Flagyl. # Mike on CKD: on HD initiated this admission Follow-up in ID clinic in 2 weeks as outpatient. Attestations Medical Necessity Statement*: Per admitting Coding Level of Care Code Acute Code for [facility] Fwd Diagnoses C. difficile colitis A04.72 Intra-abdominal abscess K65.1 Gram-negative bacteremia R78.81 Acute renal failure N17.9 Bowel perforation K63.1
[2023-04-16 05:51] LABS: Basophils # 0.1 10^3/uL (0.0-0.1); Basophils % 0.3 %; Eosinophils # 0.6 10^3/uL (0.0-0.8); Eosinophils % 3.6 %; Hematocrit 27.3 % (37-53); Lymphocytes # 2.2 10^3/uL (0.8-4.8); Lymphocytes % 13.5 %; Mean Corpuscular HGB Conc 31.9 g/dL (30-55); Mean Corpuscular Hemoglobin 28.9 pg (27-33); Mean Corpuscular Volume 90.7 fl (82-101); Mean Platelet Volume 9.4 fL (7.4-10.4); Monocytes # 1.8 10^3/uL (0.2-0.9); Monocytes % 10.9 %; Neutrophils # 10.96 10^3/uL (1.8-7.7); Neutrophils % 67.9 %; Nucleated Red Blood Cells % 0 %; Platelet Count 477 10^3/cmm (157-399); Red Blood Count 3.01 10^6/uL (3.85-5.65); White Blood Count 16.18 10^3/uL (3.29-11.43)
[2023-04-16] MEDS: apixaban 5 mg Tablet 10 MG PO ×2 (05:52→17:26)
[2023-04-16 06:04] LABS: Anion Gap 16.3 (5-19); Blood Urea Nitrogen 45 mg/dL (8-23); Calcium 9.1 mg/dL (8.5-10.5); Carbon Dioxide 28 mmol/L (22-29); Chloride 89 mmol/L (98-107); Glucose 96 mg/dL (65-115); Osmolality Calculated 279 mOsm/kg (285-295); Potassium 4.3 mmol/L (3.5-5.1); Sodium 129 mmol/L (136-145)
[2023-04-16 06:18] LABS: C Reactive Protein 21.8 mg/L (0.0-4.9)
[2023-04-16 06:34] LABS: Glucose Point of Care 217 mg/dL (70-110)
[2023-04-16] MEDS: insulin lispro 100 unit/1 mL SUBCUT ×2 (08:07→17:25)
[2023-04-16] MEDS: carbidopa-levodopa 25-100mg Tablet 1 EACH PO ×2 (08:08→20:10)
[2023-04-16] MEDS: finasteride 5 mg Tablet PO (08:08)
[2023-04-16] MEDS: metoprolol tartrate 25 mg Tablet 50 MG PO ×2 (08:08→20:10)
[2023-04-16] MEDS: ciprofloxacin 500 mg Tablet PO ×2 (08:08→20:09)
[2023-04-16] MEDS: metroNIDAZOLE 500 MG Tablet PO ×3 (08:08→20:09)
[2023-04-16] MEDS: citalopram 20 mg Tablet 40 MG PO (08:08)
[2023-04-16] MEDS: buPROPion XL (24 HR) 150 mg Tablet PO (08:08)
[2023-04-16] MEDS: amiodarone 200 mg Tablet PO ×2 (08:08→17:26)
--- NOTE | 2023-04-16 11:15 | PM.PN ---
Subjective Subjective: getting hD Medications: Reviewed: Yes Vitals/I&O/Wt Last Vital Signs Temp 97.8 F 04/16/23 08:09 Pulse 83 04/16/23 08:09 Resp 16 04/16/23 08:09 BP 139/77 04/16/23 08:09 Pulse Ox 96 04/16/23 08:09 O2 Del Method Room Air 04/16/23 08:09 O2 Flow Rate 2 04/15/23 08:00 FiO2 2 03/29/23 07:48 04/15/23 04/16/23 04/16/23 22:59 06:59 14:59 Intake Total 240 / 720 360 / 360 Balance 240 / 720 360 / 360 Weight last 48 hrs Weight 89.981 kg Weight 90.7 kg Physical Exam Narrative: awake , alert HEENT PEERLA + edema Extremity: NARRATIVE EXTREMITY EXAM: trace edema Urinary Catheter Management: Conteh: Cath Placed During This Visit: yes Reason for Continuing Indwelling Catheter: Accurate Measurement of Urinary Output in Critically Ill Patients Urinary Catheter Date of Insertion: 03/27/23 Urinary Catheter Time of Insertion: 19:10 Data 04/16/23 05:35 04/16/23 05:35 A&P Assessment and plan (1) MAYTE (acute kidney injury): Plan 1. Acute kidney injury due to sepsis, 2. E.coli (pansensitive) sepsis s/p repair of perforated sigmoid colon, now has abdominal abscess , was not able to drain , repeat CT done 3. Increased anion gap metabolic acidosis due to lactate and renal impairment. Resolved with sodium bicarbonate infusion. 4. new onset atrial fibrillation 5. 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 possible polycystic kidney disease, baseline eGFR 15 ml/min 6. Anemia, history of recent transfusion, iron deficient, received transfusion pRBC 7. History of diabetes, hypertension, coronary artery disease 8. pleural effusion Discussed in detail with at bedside. s/p PC placement on 04/01. , HD started . [facility] work to arrange for out pt HD , can do twice /week HD HD today Attestations Medical Necessity Statement*: per mediicine team Coding Level of Care Code Acute Code for g Fwd Diagnoses MAYTE (acute kidney injury) N17.9
[2023-04-16 11:45] LABS: Glucose Point of Care 225 mg/dL (70-110)
--- NOTE | 2023-04-16 12:15 | PC.NURSE ---
Pt tested positive for C. Diff on 04/05/23 and has been of isolation precautions for 11 days. Company policy stated precautions can be lifted after 7 days and asymptomatic. This was also confirmed with Traci in infection control who says as long as Dr. Hernandez is ok with this, so is she. She recommended to wipe down high profile areas with bleach wipes and continue washing hands with soap and water.
[2023-04-16] MEDS: heparin, porcine 1,000 unit/mL INJ 10 mL 1000 UNIT IV (12:35)
[2023-04-16] MEDS: albumin 12.5 GM/50 ML VIAL IV (12:36)
--- NOTE | 2023-04-16 16:13 | PC.NURSE ---
1300 Vanc was late due to pt in dialysis and then pharmacy delay.
--- NOTE | 2023-04-16 16:14 | PM.PN ---
Subjective Subjective: Patient was seen this morning, he is alert and oriented x3, following all commands, he does report generalized weakness, we discussed his CT scan abdomen pelvis findings, he will need IV antibiotics, we can transition him to p.o. antibiotics, and on discharge she will need p.o. antibiotics, he will need to follow with infectious disease as outpatient, he is quite pleased, but he is worried about his generalized weakness, he does not know how he can manage,, he does not place in the management dialysis on outpatient, we discussed were trying to get him over to [facility] versus trying to see if his family could take him home, he voices understanding, answered all his questions, Vitals/I&O/Wt Last Vital Signs Temp 97.6 F 04/16/23 16:00 Pulse 90 04/16/23 16:00 Resp 20 H 04/16/23 16:00 BP 114/68 04/16/23 16:00 Pulse Ox 92 04/16/23 16:00 O2 Del Method Room Air 04/16/23 16:00 O2 Flow Rate 2 04/15/23 08:00 FiO2 2 03/29/23 07:48 04/16/23 04/16/23 04/16/23 06:59 14:59 22:59 Intake Total 650 / 650 Balance 650 / 650 Weight last 48 hrs Weight 89.981 kg Weight 90.7 kg Physical Exam Const: COMMON NORMALS: no acute distress and patient oriented x3 Resp: COMMON NORMALS: normal respiratory effort, No retractions, No use of accessory muscles and clear to auscultation bilaterally AUSCULTATION: clear to auscultation bilaterally Cardio: COMMON NORMALS: regular rate, regular rhythm, S1 normal heart sound present and S2 normal heart sound present RATE: regular rate RHYTHM: regular rhythm HEART SOUNDS: S1 normal heart sound present and S2 normal heart sound present GI: COMMON NORMALS: Normal to inspection, nondistended, normoactive bowel sounds present and non-tender Extremity: COMMON NORMALS: no pedal edema Neuro: COMMON NORMALS: patient oriented x3 Psych: COMMON NORMALS: mental status grossly normal Urinary Catheter Management: Conteh: Cath Placed During This Visit: yes Reason for Continuing Indwelling Catheter: Accurate Measurement of Urinary Output in Critically Ill Patients Urinary Catheter Date of Insertion: 03/27/23 Urinary Catheter Time of Insertion: 19:10 Data 04/16/23 05:35 04/16/23 05:35 A&P Assessment and plan (1) Bowel perforation: (2) ASHD (arteriosclerotic heart disease): (3) Diabetes 1.5, managed as type 2: (4) HTN (hypertension): (5) Hyperlipidemia: (6) Septic shock: (7) Acute renal failure: (8) Acute encephalopathy: (9) E coli bacteremia: (10) CHRISTY (obstructive sleep apnea): (11) Gram-positive bacteremia: (12) Acute respiratory failure with hypoxia: (13) Systolic CHF: (14) Atrial fibrillation with RVR: (15) Intra-abdominal abscess: (16) Pleural effusion, left: (17) Iliac DVT (deep venous thrombosis): (18) C. difficile colitis: (19) Right leg DVT: Plan # Fever with persistent leukocytosis -Remains afebrile , leukocytosis stable -Patient has a left pleural effusion, no growth so far -left perisplenic fluid collection growth of based on clinical progress and results -Has a right PICC line in place, possible source of infection? PICC line was accidentally removed by patient, culture tip no growth so far -Has received 5 days of fungal coverage -Respiratory viral panel negative -Chest CT no new infiltrate but does have a left lung compressive atelectasis, currently on room air -c diff vancomycin 125 mg 4 times for C. difficile colitis, last day 04/21/2023 CT scan abdomen pelvis IMPRESSION: 1.? Previously described pelvic abscess slightly decreased in size compared to previous described above. 2.? Low-attenuation fluid about the spleen thought to represent blood products has significant improved compared to previous. 3.? Small LEFT pleural effusion with compressive atelectasis appears stable. Small pericardial effusion. 4.? Seroma along the umbilical incision site is stable compared to previous. 5.? No other new findings. -As patient remains afebrile, white blood cell count is stable, repeat blood cultures are negative, I am going to stop meropenem today -Continue Cipro and Flagyl p.o., and can be discharged with this in place -Spoke to infectious disease #Left pleural effusion -Status post drainage, 400 cc removed, clear, yellow, -LDH 2556, TP 3.7 -no growth so far -few wbc #Left perisplenic fluid collection, blood -50cc blood removed -no growth so far # c diff colitis -coutinue po vancomycin, for total 14 days #Intra-abdominal abscess -?There is history of abdominal abscess and appears similar in location between the rectum and bladder margin. There is some punctate air within similar. The greatest dimensions currently are approximately 5.3 x 3.7 x 5.6 cm. This appears slightly larger overall. This also abuts the adjacent bowel margin Repeat CT -MPRESSION: 1.? Previously described pelvic abscess slightly decreased in size compared to previous described above. 2.? Low-attenuation fluid about the spleen thought to represent blood products has significant improved compared to previous. 3.? Small LEFT pleural effusion with compressive atelectasis appears stable. Small pericardial effusion. 4.? Seroma along the umbilical incision site is stable compared to previous. 5.? No other new findings. -As above #Seroma at incision site # Septic shock Resolved Related to discovery of a perforated colon during colonoscopy.ite Blood culture from 03/27 reported with E. coli and Bacteroides fragilis Follow-up blood cultures from March 31, 2023 thus far negative to date. He has been on appropriate antibiotic coverage based on susceptibility data. #Perforated bowel Status exploratory laparotomy, with repair of colotomy, post abdominal washout Managed per general surgery swallow trial passed today, expected to start diet #Intermittent A-fib with RVR, now resolved - has been in sinus rhythm over the past week Amiodarone 200 p.o. two times daily, increase metoprolol 50 mg p.o. twice daily suspect that transient atrial fibrillation was related to sepsis -With his chronic anemia and hemoglobin dropped down to 5.0 in the recent past with suspected recent GI source of bleeding, do not believe patient will be a candidate for outpatient DOACs. # Acute hypoxic respiratory failure - now resolved Multifactorial,-Secondary to fluid overload from MAYTE on CKD and systolic CHF -Started hemodialysis with improvement in respiratory status -Pleural effusions have resolved , no consolidation # NSTEMI vs type II AK from demand supply mismatch related to sepsis. However cannot rule out ischemic etiology completely given that ejection fraction currently has dropped to 40 to 45% with mild global hypokinesia. Last stress test in May 2022 had shown a small sized fixed perfusion abnormality of mild severity in the basal to inferolateral lujan. He has been evaluated by cardiology as outpatient and medical management was opted in view of his CKD. # Obstructive sleep apnea, BiPAP at night time # Acute encephalopathy from sepsis and uremia, resolved # Acute on chronic renal failure, with fluid overload Started hemodialysis on April 01, 2023, tolerating well -Receiving hemodialysis, will need hemodialysis as outpatient #Right external iliac femoral venous junction DVT/RLE DVT -CT of the abdomen showed There is some patchy filling defect asymmetry demonstrated about the right external iliac femoral venous junction and could represent some early thrombosis. Consider lower extremity venous Doppler ultrasound. -IMPRESSION: Positive for DVT in the right lower extremity with partial thrombus in right external iliac and common femoral vein. -Eliquis 10 mg twice daily for 10 days, 04/19, followed by 5 twice daily Encephalopathy, resolved -Monitor mentation -Likely secondary bacteremia, C. difficile, DVT, ICU delirium DO NOT RESUSCITATE, patient's is okay with elective intubation if required Nutrition: Ng feeds ongoing, swallow trial Eliquis for DVT prophylaxis Protonix for GI prophylaxis Plan for today, up out of bed, continue p.o. antibiotics, Attestations Medical Necessity Statement*: Patient requires hospitalization for intra-abdominal abscess requiring antibiotics, A-fib, DVT, end-stage renal disease requiring dialysis Diagnoses Bowel perforation K63.1 ASHD (arteriosclerotic heart disease) 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 difficile colitis A04.72 Right leg DVT I82.401
[2023-04-16 16:56] LABS: Glucose Point of Care 182 mg/dL (70-110)
[2023-04-16] MEDS: magnesium hydroxide 30 mL UDC PO (20:09)
[2023-04-16] MEDS: quetiapine 100 mg Tablet PO (20:10)
[2023-04-16 20:31] LABS: Glucose Point of Care 130 mg/dL (70-110)
[2023-04-17] VITALS (9 sets, daily range): BP systolic 105–126; BP diastolic 60–73; PULSE 72–94; RESP 14–18; TEMP 36.7–37.4; O2SAT 90–96
[2023-04-17 05:48] LABS: Basophils # 0.1 10^3/uL (0.0-0.1); Basophils % 0.4 %; Eosinophils # 0.4 10^3/uL (0.0-0.8); Eosinophils % 2.7 %; Hematocrit 28.3 % (37-53); Lymphocytes # 2.1 10^3/uL (0.8-4.8); Lymphocytes % 13.9 %; Mean Corpuscular HGB Conc 31.4 g/dL (30-55); Mean Corpuscular Hemoglobin 28.6 pg (27-33); Mean Platelet Volume 9.7 fL (7.4-10.4); Monocytes # 1.5 10^3/uL (0.2-0.9); Monocytes % 9.9 %; Neutrophils # 10.68 10^3/uL (1.8-7.7); Neutrophils % 69.3 %; Nucleated Red Blood Cells % 0 %; Platelet Count 511 10^3/cmm (157-399); Red Blood Count 3.11 10^6/uL (3.85-5.65); Red Cell Distribution Width 13.8 % (12.1-15.1)
[2023-04-17 06:23] LABS: Blood Urea Nitrogen 32 mg/dL (8-23); Calcium 9.1 mg/dL (8.5-10.5); Carbon Dioxide 25 mmol/L (22-29); Chloride 94 mmol/L (98-107); Glucose 99 mg/dL (65-115); Osmolality Calculated 287 mOsm/kg (285-295); Sodium 135 mmol/L (136-145)
[2023-04-17] MEDS: apixaban 5 mg Tablet 10 MG PO (06:24)
[2023-04-17 06:33] LABS: Glucose Point of Care 126 mg/dL (70-110)
[2023-04-17] MEDS: finasteride 5 mg Tablet PO (08:54)
[2023-04-17] MEDS: metroNIDAZOLE 500 MG Tablet PO ×3 (08:54→19:46)
[2023-04-17] MEDS: carbidopa-levodopa 25-100mg Tablet 1 EACH PO ×2 (08:54→19:46)
[2023-04-17] MEDS: metoprolol tartrate 25 mg Tablet 50 MG PO ×2 (08:54→19:45)
[2023-04-17] MEDS: amiodarone 200 mg Tablet PO (08:54)
[2023-04-17] MEDS: ciprofloxacin 500 mg Tablet PO (08:54)
[2023-04-17] MEDS: citalopram 20 mg Tablet 40 MG PO (08:54)
[2023-04-17] MEDS: buPROPion XL (24 HR) 150 mg Tablet PO (08:55)
--- NOTE | 2023-04-17 08:57 | P.PN_ITS ---
Subjective Subjective: working with PT Medications: Reviewed: Yes Vitals/I&O/Wt Last Vital Signs Temp 98.3 F 04/17/23 08:00 Pulse 94 04/17/23 08:00 Resp 17 04/17/23 08:00 BP 111/68 04/17/23 08:00 Pulse Ox 96 04/17/23 08:00 O2 Del Method Room Air 04/17/23 08:00 O2 Flow Rate 2 04/15/23 08:00 FiO2 2 03/29/23 07:48 04/16/23 04/17/23 04/17/23 22:59 06:59 14:59 Intake Total 960 / 1610 Output Total 2112 / 2112 Balance -1152 / -502 Weight last 48 hrs Weight 90.463 kg Weight 90.3 kg Weight 89.981 kg Physical Exam Narrative: awake , alert HEENT PEERLA + edema Extremity: NARRATIVE EXTREMITY EXAM: trace edema Urinary Catheter Management: Conteh: Cath Placed During This Visit: yes Reason for Continuing Indwelling Catheter: Accurate Measurement of Urinary Output in Critically Ill Patients Urinary Catheter Date of Insertion: 03/27/23 Urinary Catheter Time of Insertion: 19:10 Data 04/17/23 05:14 04/17/23 05:14 A&P Assessment and plan (1) MAYTE (acute kidney injury): Plan 1. Acute kidney injury due to sepsis, 2. E.coli (pansensitive) sepsis s/p repair of perforated sigmoid colon, now has abdominal abscess , was not able to drain , repeat CT done 3. Increased anion gap metabolic acidosis due to lactate and renal impairment. Resolved with sodium bicarbonate infusion. 4. new onset atrial fibrillation 5. 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 possible polycystic kidney disease, baseline eGFR 15 ml/min 6. Anemia, history of recent transfusion, iron deficient, received transfusion pRBC 7. History of diabetes, hypertension, coronary artery disease 8. pleural effusion Discussed in detail with at bedside. s/p PC placement on 04/01. , HD started . [employer] work to arrange for out pt HD , can do twice /week HD HD tomorrow Attestations Medical Necessity Statement*: per medicine team Coding Level of Care Code Acute Code for [facility] Fwd Diagnoses MAYTE (acute kidney injury) N17.9
[2023-04-17 11:21] LABS: Glucose Point of Care 143 mg/dL (70-110)
[2023-04-17] MEDS: insulin lispro 100 unit/1 mL SUBCUT (12:05)
--- NOTE | 2023-04-17 12:19 | PC.SOCIAL ---
IMM Update pg 2 of IMM updated and reviewed w/ patient. Copy provided and Copy in chart dated and initialed.
[2023-04-17] MEDS: acetaminophen 325 mg/10.15 mL UDC PO (14:57)
--- NOTE | 2023-04-17 16:41 | PM.PN ---
Subjective Subjective: Patient was seen this morning, he is a bit frustrated about being here in the hospital, but knows he has weakness, he ambulated 10 feet, he still feels unsteady on his feet, he does not know where he can go, no fevers overnight, no chills, no nausea, vomiting, abdominal pain, he knows that case management is working on getting him placement, Vitals/I&O/Wt Last Vital Signs Temp 98.1 F 04/17/23 16:00 Pulse 75 04/17/23 16:00 Resp 17 04/17/23 16:00 BP 118/68 04/17/23 16:00 Pulse Ox 95 04/17/23 16:00 O2 Del Method Room Air 04/17/23 08:00 O2 Flow Rate 2 04/15/23 08:00 FiO2 2 03/29/23 07:48 04/17/23 04/17/23 04/17/23 06:59 14:59 22:59 Intake Total 240 / 240 Balance 240 / 240 Weight last 48 hrs Weight 90.463 kg Weight 90.3 kg Weight 89.981 kg Physical Exam Const: COMMON NORMALS: no acute distress and patient oriented x3 Resp: COMMON NORMALS: normal respiratory effort, No retractions, No use of accessory muscles and clear to auscultation bilaterally AUSCULTATION: clear to auscultation bilaterally Cardio: COMMON NORMALS: regular rate, regular rhythm, S1 normal heart sound present and S2 normal heart sound present RATE: regular rate RHYTHM: regular rhythm HEART SOUNDS: S1 normal heart sound present and S2 normal heart sound present GI: COMMON NORMALS: Normal to inspection, nondistended, normoactive bowel sounds present and non-tender OTHER: Surgical site looks clean and dry Extremity: COMMON NORMALS: no pedal edema Neuro: COMMON NORMALS: patient oriented x3 Urinary Catheter Management: Conteh: Cath Placed During This Visit: yes Reason for Continuing Indwelling Catheter: Accurate Measurement of Urinary Output in Critically Ill Patients Urinary Catheter Date of Insertion: 03/27/23 Urinary Catheter Time of Insertion: 19:10 Data 04/17/23 05:14 04/17/23 05:14 A&P Assessment and plan (1) Bowel perforation: (2) ASHD (arteriosclerotic heart disease): (3) Diabetes 1.5, managed as type 2: (4) HTN (hypertension): (5) Hyperlipidemia: (6) Septic shock: (7) Acute renal failure: (8) Acute encephalopathy: (9) E coli bacteremia: (10) CHRISTY (obstructive sleep apnea): (11) Gram-positive bacteremia: (12) Acute respiratory failure with hypoxia: (13) Systolic CHF: (14) Atrial fibrillation with RVR: (15) Intra-abdominal abscess: (16) Pleural effusion, left: (17) Iliac DVT (deep venous thrombosis): (18) C. difficile colitis: (19) Right leg DVT: Plan # Fever with persistent leukocytosis -Remains afebrile , leukocytosis stable -Patient has a left pleural effusion, no growth so far -left perisplenic fluid collection growth of based on clinical progress and results -Has a right PICC line in place, possible source of infection? PICC line was accidentally removed by patient, culture tip no growth so far -Has received 5 days of fungal coverage -Respiratory viral panel negative -Chest CT no new infiltrate but does have a left lung compressive atelectasis, currently on room air -c diff vancomycin 125 mg 4 times for C. difficile colitis, last day 04/21/2023 CT scan abdomen pelvis IMPRESSION: 1.? Previously described pelvic abscess slightly decreased in size compared to previous described above. 2.? Low-attenuation fluid about the spleen thought to represent blood products has significant improved compared to previous. 3.? Small LEFT pleural effusion with compressive atelectasis appears stable. Small pericardial effusion. 4.? Seroma along the umbilical incision site is stable compared to previous. 5.? No other new findings. -As patient remains afebrile, white blood cell count is stable, repeat blood cultures are negative, I am going to stop meropenem today -Continue Cipro and Flagyl p.o., and can be discharged with this in place -Spoke to infectious disease #Left pleural effusion -Status post drainage, 400 cc removed, clear, yellow, -LDH 2556, TP 3.7 -no growth so far -few wbc #Left perisplenic fluid collection, blood -50cc blood removed -no growth so far # c diff colitis -coutinue po vancomycin, for total 14 days #Intra-abdominal abscess -?There is history of abdominal abscess and appears similar in location between the rectum and bladder margin. There is some punctate air within similar. The greatest dimensions currently are approximately 5.3 x 3.7 x 5.6 cm. This appears slightly larger overall. This also abuts the adjacent bowel margin Repeat CT -MPRESSION: 1.? Previously described pelvic abscess slightly decreased in size compared to previous described above. 2.? Low-attenuation fluid about the spleen thought to represent blood products has significant improved compared to previous. 3.? Small LEFT pleural effusion with compressive atelectasis appears stable. Small pericardial effusion. 4.? Seroma along the umbilical incision site is stable compared to previous. 5.? No other new findings. -As above #Seroma at incision site # Septic shock Resolved Related to discovery of a perforated colon during colonoscopy.ite Blood culture from 03/27 reported with E. coli and Bacteroides fragilis Follow-up blood cultures from March 31, 2023 thus far negative to date. He has been on appropriate antibiotic coverage based on susceptibility data. #Perforated bowel Status exploratory laparotomy, with repair of colotomy, post abdominal washout Managed per general surgery swallow trial passed today, expected to start diet #Intermittent A-fib with RVR, now resolved - has been in sinus rhythm over the past week Amiodarone 200 p.o. two times daily, increase metoprolol 50 mg p.o. twice daily suspect that transient atrial fibrillation was related to sepsis -With his chronic anemia and hemoglobin dropped down to 5.0 in the recent past with suspected recent GI source of bleeding, do not believe patient will be a candidate for outpatient DOACs. # Acute hypoxic respiratory failure - now resolved Multifactorial,-Secondary to fluid overload from MAYTE on CKD and systolic CHF -Started hemodialysis with improvement in respiratory status -Pleural effusions have resolved , no consolidation # NSTEMI vs type II NM from demand supply mismatch related to sepsis. However cannot rule out ischemic etiology completely given that ejection fraction currently has dropped to 40 to 45% with mild global hypokinesia. Last stress test in May 2022 had shown a small sized fixed perfusion abnormality of mild severity in the basal to inferolateral lujan. He has been evaluated by cardiology as outpatient and medical management was opted in view of his CKD. # Obstructive sleep apnea, BiPAP at night time # Acute encephalopathy from sepsis and uremia, resolved # Acute on chronic renal failure, with fluid overload Started hemodialysis on April 01, 2023, tolerating well -Receiving hemodialysis, will need hemodialysis as outpatient #Right external iliac femoral venous junction DVT/RLE DVT -CT of the abdomen showed There is some patchy filling defect asymmetry demonstrated about the right external iliac femoral venous junction and could represent some early thrombosis. Consider lower extremity venous Doppler ultrasound. -IMPRESSION: Positive for DVT in the right lower extremity with partial thrombus in right external iliac and common femoral vein. -Eliquis 5 mg twice daily starting today Encephalopathy, resolved -Monitor mentation -Likely secondary bacteremia, C. difficile, DVT, ICU delirium DO NOT RESUSCITATE, patient's is okay with elective intubation if required Nutrition: Ng feeds ongoing, swallow trial Eliquis for DVT prophylaxis Protonix for GI prophylaxis Plan for today, up out of bed, continue p.o. antibiotics, Attestations Medical Necessity Statement*: Patient requires hospitalization for perforated colon, requiring antibiotics, currently n.p.o. antibiotics, DVT, on Eliquis, end-stage renal disease on dialysis, Diagnoses Bowel perforation K63.1 ASHD (arteriosclerotic heart disease) 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 difficile colitis A04.72 Right leg DVT I82.401
[2023-04-17 17:19] LABS: Glucose Point of Care 104 mg/dL (70-110)
[2023-04-17] MEDS: HYDROcodone-acetaminophen 5-325 mg Tablet 1 TAB PO (17:55)
[2023-04-17] MEDS: apixaban 5 mg Tablet PO (17:55)
[2023-04-17] MEDS: magnesium hydroxide 30 mL UDC PO (19:40)
[2023-04-17] MEDS: quetiapine 100 mg Tablet PO (19:45)
[2023-04-17 21:24] LABS: Glucose Point of Care 164 mg/dL (70-110)
[2023-04-18] VITALS (7 sets, daily range): BP systolic 116–152; BP diastolic 64–88; PULSE 71–102; RESP 16–19; TEMP 36–37.2; O2SAT 93–96
[2023-04-18] MEDS: ciprofloxacin 500 mg Tablet PO (01:56)
[2023-04-18 05:04] LABS: Basophils # 0.1 10^3/uL (0.0-0.1); Basophils % 0.3 %; Eosinophils # 0.3 10^3/uL (0.0-0.8); Eosinophils % 2.1 %; Hematocrit 27.6 % (37-53); Lymphocytes # 1.8 10^3/uL (0.8-4.8); Lymphocytes % 11.4 %; Mean Corpuscular HGB Conc 31.2 g/dL (30-55); Mean Corpuscular Hemoglobin 28.1 pg (27-33); Mean Corpuscular Volume 90.2 fl (82-101); Mean Platelet Volume 9.4 fL (7.4-10.4); Monocytes # 1.3 10^3/uL (0.2-0.9); Monocytes % 8.4 %; Neutrophils # 11.97 10^3/uL (1.8-7.7); Neutrophils % 74.8 %; Nucleated Red Blood Cells % 0 %; Platelet Count 478 10^3/cmm (157-399); Red Blood Count 3.06 10^6/uL (3.85-5.65); White Blood Count 16.01 10^3/uL (3.29-11.43)
[2023-04-18 05:24] LABS: Anion Gap 20.2 (5-19); Blood Urea Nitrogen 48 mg/dL (8-23); Calcium 9.1 mg/dL (8.5-10.5); Carbon Dioxide 23 mmol/L (22-29); Chloride 91 mmol/L (98-107); Glucose 120 mg/dL (65-115); Osmolality Calculated 284 mOsm/kg (285-295); Potassium 4.2 mmol/L (3.5-5.1); Sodium 130 mmol/L (136-145)
[2023-04-18 06:38] LABS: Glucose Point of Care 140 mg/dL (70-110)
--- NOTE | 2023-04-18 08:29 | PC.HD ---
Prior to HD intiation R IJ HD catheter dressing was changed. A small amount of redness was noted at the catheter insertion point and areas where the catheter is stitched to the skin. No drainage/pus/odor noted. Area simply appeared slightly irritated. Triple antibiotic ointment and clean dressing applied. Patient was advised to notify RN if his catheter insertion site becomes painful. After treatment initiation, patient began complaining of foot pain; at assessment he denied any pain. Primary RN notified of patient's request for pain medication.
[2023-04-18] MEDS: HYDROcodone-acetaminophen 5-325 mg Tablet 1 TAB PO (08:37)
[2023-04-18 09:02] LABS: SARS Covid-2 Antigen negative (Negative)
--- NOTE | 2023-04-18 09:57 | PM.DCS ---
Discharge Providers Date of Admission: 03/27/23 20:57 Date of Discharge: April 18, 2023 Attending Provider at Admission: Eric Light DO Attending Provider at Discharge: Felix Hernandez MD Primary Care Provider: Ramiro Villavicencio MD Diagnoses at Discharge Discharge Diagnosis (1) Bowel perforation: Status: Acute (2) ASHD (arteriosclerotic heart disease): Status: Acute (3) Diabetes 1.5, managed as type 2: Status: Acute (4) HTN (hypertension): Status: Acute (5) Hyperlipidemia: Status: Acute (6) Septic shock: Status: Acute (7) Acute renal failure: Status: Acute (8) Acute encephalopathy: Status: Acute (9) E coli bacteremia: Status: Acute (10) CHRISTY (obstructive sleep apnea): Status: Acute (11) Gram-positive bacteremia: Status: Acute (12) Acute respiratory failure with hypoxia: Status: Acute (13) Systolic CHF: Status: Acute (14) Atrial fibrillation with RVR: Status: Acute (15) Intra-abdominal abscess: Status: Acute (16) Pleural effusion, left: Status: Acute (17) Iliac DVT (deep venous thrombosis): Status: Acute (18) C. difficile colitis: Status: Acute (19) Right leg DVT: Status: Acute Reason for Visit Reason for Visit: COLONOSCOPY/ PERF COLON Hospital Course Hospital Course This is a 77-year-old male with a past medical history of CAD, type 2 diabetes mellitus, CVA, hypertension, hyperlipidemia, BPH, who presents to [facility] for a transfer from outside facility for colon perforation after colonoscopy Please look at my last progress note for further specific details, Patient was admitted to [facility] for perforated bowel, status post exploratory laparotomy with repair of colotomy, status post abdominal washout, by general surgery, EFREM drain in place, monitored in the intensive care unit with the help of general surgery, overall clinically improved, started on diet, having adequate bowel movements, surgical site clinically monitored, overall clinically improved, moved to general medical floors, will be discharged with a close follow-up with general surgery in 2 weeks, discharged to long term facility Patient was found to have intra-abdominal abscess with perforated bowel, with E. coli and Bacteroides bacteremia, repeat blood cultures were negative, patient remained afebrile, does have persistent leukocytosis on discharge but remains afebrile, clinically improved, he is completed 2 weeks of IV antibiotics as inpatient, repeat CT scan did show pelvic abscess decreased in size, discharged on p.o. antibiotics Cipro and Flagyl for 2 remaining weeks, with a close follow-up with infectious disease as outpatient, repeat CT scan in 2 weeks Patient was found to have a left pleural effusion, no growth so far Left perisplenic fluid collection, blood, no growth so far Patient was found to have C. difficile colitis during hospitalization, managed with p.o. vancomycin, will continue vancomycin for 14 more days until patient's off Cipro and Flagyl Patient has septic shock during this hospitalization, secondary to perforated colon, bacteremia, resolved Patient had intermittent A-fib with RVR during his hospitalization, discharged on amiodarone, Eliquis Patient will had respiratory failure during his hospitalization, resolved with dialysis, secondary to fluid overload Patient had NSTEMI during hospitalization, type I versus type II, EF down to 40 to 45%, discharged on aspirin, statin, Eliquis, beta-priyanka, follow-up with cardiology as outpatient for consideration of stress testing Patient was found to have DVT, during his hospitalization, right lower extremity, discharged on Eliquis therapy, likely can be discontinued after 3 to 6 months Acute encephalopathy, resolved on discharge patient has CKD stage V at baseline,, developing worsening renal function during his hospitalization secondary to sepsis, secondary to perforated bowel requiring dialysis as inpatient, requiring dialysis for fluid overload, converted to permanent dialysis, will require permanent dialysis as outpatient, has a tunneled dialysis catheter on the right, next dialysis day is on Friday, will require dialysis 2 times a week, follow-up with nephrology as outpatient Patient will be discharged to long term facility for physical deconditioning, Physical Exam Const: COMMON NORMALS: no acute distress and patient oriented x3 Resp: COMMON NORMALS: normal respiratory effort, No retractions, No use of accessory muscles and clear to auscultation bilaterally AUSCULTATION: clear to auscultation bilaterally Cardio: COMMON NORMALS: regular rate, regular rhythm, S1 normal heart sound present and S2 normal heart sound present RATE: regular rate RHYTHM: regular rhythm HEART SOUNDS: S1 normal heart sound present and S2 normal heart sound present GI: COMMON NORMALS: Normal to inspection, nondistended, normoactive bowel sounds present and non-tender Extremity: COMMON NORMALS: no pedal edema Neuro: COMMON NORMALS: patient oriented x3 Psych: COMMON NORMALS: mental status grossly normal Skin: NARRATIVE SKIN EXAM: Surgical site looks clean and dry Urinary Catheter Management: Conteh: Cath Placed During This Visit: yes Reason for Continuing Indwelling Catheter: Accurate Measurement of Urinary Output in Critically Ill Patients Urinary Catheter Date of Insertion: 03/27/23 Urinary Catheter Time of Insertion: 19:10 Discharge Data Studies Completed and Pending Completed Studies During Hospitalization Category Date Time Status CT abdomen pelvis w con* [id number] Routine Cat Scan 04/03/23 10:[address] abdomen pelvis w con* [id number] Routine Cat Scan 04/06/23 10:[address] abdomen pelvis w con* [id number] Routine Cat Scan 04/15/23 07:[address] chest abdomen pelvis [[place] [id number] Cat Scan 03/29/23 10:19 Completed ] Routine CT chest wo con [id number] Routine Cat Scan 04/06/23 10:[address] head wo con* [id number] Routine Cat Scan 03/28/23 15:13 Completed CXRP [XR chest 1V portable [id number]] Routine Exams 04/01/23 12:23 Completed CXRP [XR chest 1V portable 63815] Stat Exams 04/07/23 16:14 Completed XR KUB portable [id number] Routine Exams 03/28/23 12:11 Completed XR chest 1V portable [id number] Routine Exams 03/28/23 12:11 Completed XR chest 1V portable [id number] Routine Exams 03/28/23 23:18 Completed XR chest 1V portable [id number] Routine Exams 03/29/23 07:00 Completed XR chest 1V portable 32718 Routine Exams 04/07/23 09:00 Completed XR chest 1V portable [id number] Routine Exams 04/08/23 07:00 Completed XR chest 1V portable 18429 Stat Exams 03/28/23 16:46 Completed XR chest 1V portable [id number] Stat Exams 03/28/23 23:37 Completed Cytology [PTH] Routine Pth 04/07/23 12:01 [place] [id number] Routine Ultrasound 03/29/23 10:19 [place] [id number] Routine Ultrasound 04/07/23 14:58 Completed CV. echo wo/w contrast 15614 Routine Ultrasound 03/28/23 12:09 Completed US abdomen limited [id number] Routine Ultrasound 04/08/23 08:09 Completed US paracentesis abdomen [US paracentesis abd w [id number]] Ultrasound 04/07/23 09:01 Completed Stat US thoracentesis 16038 Routine Ultrasound 04/07/23 09:03 Completed Pending at discharge Category Date Time Status Basic Metabolic Panel AM LABS Lab 04/19/23 04:00 Ordered Complete Blood Count w/Auto AM LABS Lab 04/19/23 04:00 Ordered Mycobacteria, Culture w/Fluor Routine Lab 04/07/23 16:20 Results Radiology Impressions Head CT 03/28/23 15:13 IMPRESSION: Technically limited study. No acute intracranial abnormalities. Chest/Abdomen/Pelvis CT 03/29/23 10:19 IMPRESSION: Small bilateral pleural effusions with adjacent dependent consolidation or atelectasis. Correlate for pneumonia. IMPRESSION: 1. There is minimal free intraperitoneal air present which is likely postoperative given history of colonic surgery. A pelvic surgical drain is in place. 2. Small collection of fluid and gas in the deep pelvis measuring 3.9 cm maximum size suspicious for an abscess. There is also a simple appearing fluid collection deep to the ventral midline abdominal wound measuring 3.4 cm favored to be a seroma. 3. Wall thickening versus underdistention in the distal colon. Correlate for possible colitis. ADDENDUM: 03/29/23 1727 THIS REPORT CONTAINS FINDINGS THAT MAY BE CRITICAL TO PATIENT CARE. The findings were verbally communicated via telephone conference with FELIX Kulkarni at 5:24 PM CDT on 03/29/2023. The findings were acknowledged and understood. Chest CT 04/06/23 10:29 IMPRESSION: 1. In the interval there is some improving aeration on the right with decreased consolidative volume loss and pleural fluid. 2. The small pleural effusion as well as the adjacent atelectatic consolidation remains similar at the left lung base. No interval significant loculation or air-fluid level is currently appreciated. 3. There is some pericardial fluid present similar overall in location although appears slightly thicker inferiorly on the left and could represent some interval progression. Venous Duplex 04/07/23 14:58 IMPRESSION: Positive for DVT in the right lower extremity with partial thrombus in right external iliac and common femoral vein. ADDENDUM: 04/07/23 2205 THIS REPORT CONTAINS FINDINGS THAT MAY BE CRITICAL TO PATIENT CARE. The findings were verbally communicated via telephone conference with FELIX HERNANDEZ at 10:02 PM CDT on 04/07/2023. The findings were acknowledged and understood. Chest X-Ray 04/08/23 07:00 IMPRESSION: Grossly stable left lower lobe infiltrate and left pleural effusion. Laboratory Results WBC 16.01 10^3/uL (3.29-11.43) H 04/18/23 04:55 RBC 3.06 10^6/uL (3.85-5.65) L 04/18/23 04:55 Hgb 8.60 g/dL (11.27-16.99) L 04/18/23 04:55 Hct 27.6 % (37-53) L 04/18/23 04:55 MCV 90.2 fl (82-101) 04/18/23 04:55 MCH 28.1 pg (27-33) 04/18/23 04:55 MCHC 31.2 g/dL (30-55) 04/18/23 04:55 RDW 14.0 % (12.1-15.1) 04/18/23 04:55 Plt Count 478 10^3/cmm (157-399) H 04/18/23 04:55 MPV 9.4 fL (7.4-10.4) 04/18/23 04:55 Neut % (Auto) 74.8 % 04/18/23 04:55 Lymph % (Auto) 11.4 % 04/18/23 04:55 [place] % (Auto) 8.4 % 04/18/23 04:55 Eos % (Auto) 2.1 % 04/18/23 04:55 Baso % (Auto) 0.3 % 04/18/23 04:55 Neut # (Auto) 11.97 10^3/uL (1.8-7.7) H 04/18/23 04:55 Lymph # (Auto) 1.8 10^3/uL (0.8-4.8) 04/18/23 04:55 [place] # (Auto) 1.3 10^3/uL (0.2-0.9) H 04/18/23 04:55 Eos # (Auto) 0.3 10^3/uL (0.0-0.8) 04/18/23 04:55 Baso # (Auto) 0.1 10^3/uL (0.0-0.1) 04/18/23 04:55 Nucleated RBC % (auto) 0 % 04/18/23 04:55 Total Counted 100 (0-100) 03/28/23 12:20 Atypical Lymphs % 0.0 % (0-5) 03/28/23 12:20 Absolute Neutrophils 4.0 10^3/cmm (1.4-6.5) 03/28/23 12:20 Segmented Neutrophils 36 % 03/28/23 12:20 Abs Segm Neuts (Man) 2.4 10/cmm (1.6-7.1) 03/28/23 12:20 Band Neutrophils 25.0 % 03/28/23 12:20 Abs Band Neuts (Man) 1.7 10^3/cmm (0.0-1.2) H 03/28/23 12:20 Absolute Lymphocytes 1.4 10^3/cmm (1.2-3.4) 03/28/23 12:20 Lymphocytes (Manual) 21 % 03/28/23 12:20 Monocytes (Manual) 1.0 % 03/28/23 12:20 Absolute Monocytes 0.1 10^3/cmm (0.1-0.6) 03/28/23 12:20 Eosinophils (Manual) 0 % 03/28/23 12:20 Absolute Eosinophils 0.0 10^3/cmm (0.0-0.7) 03/28/23 12:20 Basophils (Manual) 0.0 % 03/28/23 12:20 Absolute Basophils 0.0 10^3/cmm (0.0-0.2) 03/28/23 12:20 Metamyelocytes 10.0 % 03/28/23 12:20 Myelocytes 7.0 % 03/28/23 12:20 Promyelocytes 0.0 % 03/28/23 12:20 Nucleated RBCs # 0.0 /100WBC 04/18/23 04:55 Differential Comment Yes 04/07/23 16:20 Differential Comment Yes 04/07/23 16:20 Blast Cells Mortgage Loan Assistant 03/28/23 12:20 Platelet Estimate Normal (Normal) 03/28/23 12:20 PT 14.20 SECONDS (12.1-14.9) 04/09/23 04:54 INR 1.07 (0.8-1.2) 04/09/23 04:54 APTT 29.6 SECONDS (23.9-36.7) D 04/09/23 11:50 Specimen Type Arterial 03/30/23 04:30 Sample Site Radial, right 03/30/23 04:30 O2 Sat Pulse Oximetry 95.0 % 03/30/23 04:30 ABG pH 7.37 (7.35-7.45) 03/30/23 04:30 ABG pCO2 37.7 mmHg (35-45) 03/30/23 04:30 ABG pO2 69.9 mmHg (80.0-100.0) L 03/30/23 04:30 ABG HCO3 21.7 mmol/L (22-26) L 03/30/23 04:30 ABG Base Excess -3.2 mmol/L (-2.0-2.0) L 03/30/23 04:30 Aren Test Pos 03/30/23 04:30 Hematocrit 26.9 % (42-52) L 03/30/23 04:30 O2 Delivery Device Nc 03/30/23 04:30 O2 Liters/Min 2.0 % 03/30/23 04:30 FiO2 24.0 % 03/30/23 04:30 Specimen Drawn By Adam 03/30/23 04:30 Optical Laboratory Mechanic ID Adam 03/30/23 04:30 Sodium 130 mmol/L (136-145) L 04/18/23 04:55 Potassium 4.2 mmol/L (3.5-5.1) 04/18/23 04:55 Chloride 91 mmol/L (98-107) L 04/18/23 04:55 Carbon Dioxide 23 mmol/L (22-29) 04/18/23 04:55 Anion Gap 20.2 (5-19) H 04/18/23 04:55 BUN 48 mg/dL (8-23) H 04/18/23 04:55 Creatinine 5.9 mg/dL (0.7-1.2) H* 04/18/23 04:55 GFR Calculation Not Reportable 04/18/23 04:55 Glucose 120 mg/dL (65-115) H 04/18/23 04:55 POC Glucose 140 mg/dL (70-110) H 04/18/23 06:29 Estimat Average Glucose 105 03/28/23 04:04 Hemoglobin A1c 5.3 % (4.0-6.0) 03/28/23 04:04 Calculated Osmolality 284 mOsm/kg (285-295) L 04/18/23 04:55 Lactic Acid 2.7 mmol/L (0.5-2.2) H 03/28/23 09:28 Lactic Acid (Sepsis) 2.9 mmol/L (0.5-2.2) H 03/28/23 12:20 Lactate 1.5 mmol/L (0.5-2.2) 03/31/23 03:59 Calcium 9.1 mg/dL (8.5-10.5) 04/18/23 04:55 Phosphorus 4.7 mg/dL (2.5-4.5) H 04/13/23 03:32 Magnesium 2.1 mg/dL (1.7-2.3) 04/13/23 03:32 Iron 5 ug/dL (59-158) L 03/30/23 04:20 TIBC 166 mcg/dl 03/30/23 04:20 % Saturation 3.0 % (20-50) L 03/30/23 04:20 Unsat Iron Binding 161 ug/dL (112-347) 03/30/23 04:20 Ferritin 183 ng/mL (30-400) 03/30/23 04:20 Total Bilirubin 0.4 mg/dL (0.15-1.2) 04/10/23 04:36 AST 28 U/L (0-40) 04/10/23 04:36 ALT 6 U/L (0-41) 04/10/23 04:36 Alkaline Phosphatase 107 U/L (40-130) 04/10/23 04:36 Lactate Dehydrogenase 239 U/L (135-225) H 04/08/23 03:53 Creatine Kinase 58 U/L (39-308) 03/31/23 03:59 Troponin T Baseline 38 ng/L (0-15) H 03/28/23 12:20 Troponin T 120 Minute 42.32 ng/L (0-15) H 03/28/23 14:30 Delta Troponin T 4.32 ABS# (0-10) 03/28/23 14:30 Troponin T Hi Sens 6Hr 47.83 ng/L (0-15) H 03/28/23 18:27 Troponin T Hi Sens 6Hr Delta 9.83 ng/L (0-12) 03/28/23 18:27 C-Reactive Protein 21.8 mg/L (0.0-4.9) H 04/16/23 05:35 NT-Pro-B Natriuret Pep 1812 pg/mL (0-450) H 04/10/23 04:36 Total Protein 6.7 g/dL (6.6-8.7) 04/10/23 04:36 Albumin 3.1 g/dL (3.5-5.2) L 04/10/23 04:36 Globulin 3.6 g/dL (1.3-4.6) 04/10/23 04:36 Triglycerides 159 mg/dL (0-150) H 03/28/23 04:04 Cholesterol 91 mg/dL (0-200) 03/28/23 04:04 LDL Cholesterol, Calc 34 mg/dL (50-129) L 03/28/23 04:04 HDL Cholesterol 25 mg/dL (60-100) L 03/28/23 04:04 LDL/HDL Ratio 1.36 RATIO (0.00-3.22) 03/28/23 04:04 Cholesterol/HDL Ratio 3.64 mg/dL (1.0-5.00) 03/28/23 04:04 Procalcitonin 0.53 ng/mL (0-0.5) H 04/13/23 03:32 TSH 4.41 uIU/mL (0.27-4.20) H 03/28/23 04:04 Urine Color Yellow (Yellow) 03/27/23 20:41 Urine Appearance Clear (CLEAR) 03/27/23 20:41 Urine pH 6 (5-7) 03/27/23 20:41 Ur Specific [place] 1.015 (1.005-1.030) 03/27/23 20:41 Urine Protein 1+ (Negative) H 03/27/23 20:41 Urine Glucose (UA) Norm (Normal) 03/27/23 20:41 Urine Ketones Negative (Negative) 03/27/23 20:41 Urine Blood Neg (Negative) 03/27/23 20:41 Urine Nitrate Negative (Negative) 03/27/23 20:41 Urine Bilirubin Neg (Negative) 03/27/23 20:41 Urine Urobilinogen Neg mg/dL (Negative) 03/27/23 20:41 Ur Leukocyte Esterase Negative (Negative) 03/27/23 20:41 Urine RBC 0-4 /hpf (0-2) H 03/27/23 20:41 Urine WBC 0-4 /hpf (0-5) H 03/27/23 20:41 Ur Squamous Epith Cells 0-4 /hpf (0-5) H 03/27/23 20:41 Amorphous Sediment Not Reportable 03/27/23 20:41 Urine Bacteria Trace /hpf (NONE) 03/27/23 20:41 Fluid Color Red 04/07/23 16:20 Fluid Color Yellow 04/07/23 16:20 Fluid Appearance Bloody 04/07/23 16:20 Fluid Appearance Cloudy 04/07/23 16:20 Fluid Specific Grav 1.010 04/07/23 16:20 Fluid pH 8.0 04/07/23 16:20 Fluid WBC 0 /uL 04/07/23 16:20 Fluid WBC 2303 /uL 04/07/23 16:20 Fluid RBC 1.000 10^3/uL 04/07/23 16:20 Fluid RBC 6.000 10^3/uL 04/07/23 16:20 Fluid Hematocrit 0.1 % 04/07/23 16:20 Fld Polynuclear WBCs # 0.000 04/07/23 16:20 Fld Polynuclear WBCs # 2.237 04/07/23 16:20 Fld Polynuclear WBCs % 0.000 % 04/07/23 16:20 Fld Polynuclear WBCs % 97.100 % 04/07/23 16:20 Fl Mononucl WBCs #(Auto) 0.000 04/07/23 16:20 Fl Mononucl WBCs #(Auto) 0.066 04/07/23 16:20 Fl Mononuclear % Auto 0.000 % 04/07/23 16:20 Fl Mononuclear % Auto 2.900 % 04/07/23 16:20 Fld Crystal Laterality Left pleural fluid 04/07/23 16:20 Fld Crystal Laterality Not Reportable 04/07/23 16:20 Fluid Glucose 35.0 mg/dL 04/07/23 16:20 Fluid Total Protein 3.7 g/dL 04/07/23 16:20 Fluid Albumin 2.0 g/dL 04/07/23 16:20 Fluid Albumin 2.6 g/dL 04/07/23 16:20 Fluid LDH > 2556 U/L 04/07/23 16:20 Fluid Amylase 91 U/L 04/07/23 16:20 Fluid Creatinine 5.11 (0.7-1.2) H 04/07/23 16:20 Fluid Alk Phosphatase 20 IU/L 04/07/23 16:20 Fluid Cholesterol 79 mg/dL (0-200) 04/07/23 16:20 Fluid Triglycerides 118 mg/dL (0-150) 04/07/23 16:20 Fluid Uric Acid Mortgage Loan Assistant 04/07/23 16:20 Pleural pH Cancelled 04/07/23 16:20 Pleural Total Protein Cancelled 04/07/23 16:20 Pleural LDH Cancelled 04/07/23 16:20 Pleural Glucose Cancelled 04/07/23 16:20 Pleural Amylase Cancelled 04/07/23 16:20 Pleural Triglycerides Cancelled 04/07/23 16:20 Nasal Influ A H1 2008 PCR Not detected (NOT DETECT) 04/06/23 11:45 Vancomycin Trough 13.8 ug/mL (10-15) 04/01/23 17:30 Random Vancomycin 23.4 ug/mL (20.0-40.0) 04/12/23 04:23 Adenovirus (PCR) Not detected (NOT DETECT) 04/06/23 11:45 C. pneumoniae DNA (PCR) Not detected (NOT DETECT) 04/06/23 11:45 C. difficile Tox (PCR) Detected (NOT DETECTED) A 04/05/23 11:10 Coronavirus 229E (PCR) Not detected (NOT DETECT) 04/06/23 11:45 Hep Bs Antigen Non-reactive (Nonreactive) 04/08/23 03:55 Hep Bs Antibody 3.5 (11.5-1000) L 04/08/23 03:55 Hep B Core Total Ab Non-reactive (Nonreactive) 04/08/23 03:55 Hepatitis C Antibody Non-reactive (Nonreactive) 03/30/23 04:20 Human Metapneumovir PCR Not detected (NOT DETECT) 04/06/23 11:45 Influenza A (H1) PCR Not detected (NOT DETECT) 04/06/23 11:45 Influenza A (H3) PCR Not detected (NOT DETECT) 04/06/23 11:45 Influenza Type A (PCR) Not detected (NOT DETECT) 04/06/23 11:45 Influenza Type B (PCR) Not detected (NOT DETECT) 04/06/23 11:45 M. pneumoniae (PCR) Not detected (NOT DETECT) 04/06/23 11:45 Parainfluenza 1 (PCR) Not detected (NOT DETECT) 04/06/23 11:45 Parainfluenza 2 (PCR) Not detected (NOT DETECT) 04/06/23 11:45 Parainfluenza 3 (PCR) Not detected (NOT DETECT) 04/06/23 11:45 Parainfluenza 4 (PCR) Not detected (NOT DETECT) 04/06/23 11:45 RSV Type A (PCR) Not detected (NOT DETECT) 04/06/23 11:45 RSV Type B (PCR) Not detected (NOT DETECT) 04/06/23 11:45 Entero/Rhino (PCR) Not detected (NOT DETECT) 04/06/23 11:45 SARS-CoV-2 (PCR) Not detected (NOT DETECT) 04/06/23 11:45 SARS-CoV-2 Ag (Rapid) negative (Negative) 04/18/23 08:37 MRSA (PCR) Not detected (NOT DETECTED) 04/05/23 11:10 Blood Type O Positive 03/27/23 17:55 Rho(D) Type Positive 03/27/23 17:55 Antibody Screen Negative 03/27/23 17:55 Crossmatch See Detail 03/27/23 17:55 Vitals Last Vital Signs Temp 96.8 F L 04/18/23 08:27 Pulse 82 04/18/23 08:27 Resp 16 04/18/23 08:27 BP 152/80 04/18/23 08:27 Pulse Ox 94 04/18/23 07:48 O2 Del Method Room Air 04/18/23 07:48 O2 Flow Rate 2 04/15/23 08:00 FiO2 2 03/29/23 07:48 Discharge Plan Discharge Patient Disposition: Xfer SNF Condition: Stable Prescriptions: New Pacerone 200 mg Tablet 200 mg PO DAILY 30 Days Qty: 30 0RF Eliquis 5 mg Tablet 5 mg PO Q12H 30 Days Qty: 60 0RF hydrocodone-acetaminophen 5-325 mg Tablet 1 tab PO Q6H PRN (Reason: Moderate Pain) 5 Days Qty: 20 0RF metronidazole 500 mg Tablet 500 mg PO TID 14 Days Qty: 42 0RF ciprofloxacin HCl 500 mg Tablet 500 mg PO Q18H 14 Days Qty: 19 0RF metoprolol tartrate 25 mg Tablet 50 mg PO BID@0900,2100 30 Days Qty: 60 0RF vancomycin 125 mg capsule 125 mg PO Q6H 14 Days Qty: 56 0RF aspirin 81 mg capsule 81 mg PO DAILY 30 Days Qty: 30 0RF Novolog FlexPen U-100 Insulin 100 unit/mL (3 mL) insulin pen See Rx Instructions .ROUTE .COMPLEX Qty: 15 0RF Rx Instructions: Inject, subcut, 3 times daily, after meals, based on low-dose sliding scale Continued nitroglycerin [Nitrostat] 0.4 mg tablet, sublingual 0.4 mg SUBLINGUAL Q5M PRN (Reason: Chest Pain) citalopram 40 mg tablet 40 mg PO DAILY@0800 atorvastatin 40 mg tablet 40 mg PO DAILY@2100 bupropion HCl [Wellbutrin XL] 150 mg tablet extended release 24 hr 150 mg PO DAILY@0800 carbidopa-levodopa 25-100 mg tablet 1 tab PO BID@08, quetiapine [Seroquel] 50 mg tablet 100 mg PO DAILY ferrous fumarate 325 mg (106 mg iron) tablet 325 mg PO DAILY finasteride 5 mg tablet 5 mg PO DAILY albuterol sulfate [Ventolin HFA] 90 mcg/actuation HFA aerosol inhaler 1 inh inhalation QID PRN (Reason: shortness of breath or wheezing) Qty: 8.5 3RF calcitriol 0.25 mcg capsule See Rx Instructions .ROUTE .COMPLEX Rx Instructions: 0.25 mcg orally 3 times weekly on Friday, Friday, Friday cholecalciferol (vitamin D3) [Vitamin D3] 50 mcg (2,000 unit) Tablet 100 mcg PO DAILY pantoprazole 40 mg tablet,delayed release (DR/EC) 40 mg PO DAILY acyclovir 200 mg capsule 200 mg PO 5XD PRN (Reason: outbreaks) Changed tamsulosin 0.4 mg capsule 0.4 mg PO DAILY 30 Days Qty: 30 0RF Xanax 1 mg tablet 0.5 mg PO BID PRN (Reason: Anxiety) 7 Days Qty: 14 0RF Discontinued propranolol [Inderal LA] 80 mg capsule,extended release 24 hr 80 mg PO DAILY@0800 amlodipine 5 mg tablet 5 mg PO BID@, clopidogrel 75 mg tablet 75 mg PO DAILY@0800 isosorbide mononitrate 30 mg tablet extended release 24 hr 30 mg PO DAILY Qty: 90 3RF glimepiride 2 mg tablet 2 mg PO DAILY sodium bicarbonate 650 mg tablet 650 mg PO BID bisoprolol-hydrochlorothiazide 10-6.25 mg Tablet 1 tab PO DAILY@0800 Discharge Orders: Discharge Order (Routine); Ordered 04/18/23 Ordered By: Felix Hernandez Referrals: Eric Light DO [Physician] - 2 weeks (We have notified your physician's clinic of the need for a follow-up appointment to be scheduled. If you have not heard from them within the next 2 business days, please call them directly. You may also reach out to our assistant manager retail at [phone] and she can assist you.) Juan M Banegas MD [Referring] - 05/06/23 12:00 pm Meghan Gillespie MD [Physician] - 04/30/23 12:15 pm (APPT WILL BE WITH DR BARRIOS) Rina Delcid MD [Hospitalist] - 2 weeks (We have notified your physician's clinic of the need for a follow-up appointment to be scheduled. If you have not heard from them within the next 2 business days, please call them directly. You may also reach out to our assistant manager retail at [phone] and she can assist you.) Ramiro Villavicencio MD [Primary Care Provider] - 04/22/23 1:00 pm Discharge Diet: GI Soft Discharge Activity: Resume usual activity Patient Instructions: Dialysis Diet (DC), Hemodialysis (DC), Opioid Safety Activity Restrictions/Additional Instructions: --Please monitor your blood sugars closely -Monitor your blood sugars 3 times daily as after meals -Please record your blood sugars, and a blood sugar log -For your NovoLog -Please inject blood sugar after meals based on sliding scale provided -Do not inject insulin if you do not eat as hypoglycemia kills -This is a NovoLog sliding scale -Insulin sliding ?fingerstick? Insulin ?141-180?0 units/sq 181-220?2 units/sq ?221-260?4 units/sq ?261-300 6 units/sq ?301-350?8 units/sq ?351-400 10 units/sq ?401-450?12 units/sq >450? 14units/sq -If your blood sugar is greater than 500 go to the emergency room -If your blood sugar is less than 60 or at anytime you feel lightheaded or dizzy or diaphoretic or have chest palpitations check your blood sugar, and eat a hard candy or drink orange juice and go immediately to the emergency room -Remember hypoglycemia kills, so if his blood sugar is less than 60 we have to increase it by taking in a sugary meal such as a hard candy or orange juice and go to the emergency room -If you have any questions please call us where here to help -Please follow-up with infectious disease in 2 weeks, for consideration of repeat CT scan -Please continue antibiotics for 2 weeks, for intra-abdominal abscess -Please continue p.o. vancomycin for 2 weeks -Please hydrate well -Please follow-up with Dr. Light -Monitor for fevers -Repeat CBC on Friday for hemoglobin monitoring -On twice weekly dialysis, next dialysis on Friday -Follow-up with nephrology in 2 weeks -Take blood thinner as prescribed, if he develops bloody or black stools to go to the emergency room, hemoglobin discharge 8.9 -For atrial fibrillation follow-up with cardiology -Struct of sleep apnea, continue CPAP -For NSTEMI, please follow-up with cardiology for consideration of stress testing -Follow general surgery Discharge Attestations Time Spent in Discharge Care*: greater than 30 min Status at Discharge: Cognitive status at discharge: cognitively intact, Quality Metrics Clinical Quality Measures [ Venous Thromboembolism { Contraindication to Overlap Therapy: Overlap treatment not indicated; VTE Discharge Education: Education about anticoagulant therapy/Care Notes given;}] Coding Level of Care Code Acute Code for [facility] Fwd Diagnoses Bowel perforation K63.1 ASHD (arteriosclerotic heart disease) 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 difficile colitis A04.72 Right leg DVT I82.401
[2023-04-18 10:31] LABS: Glucose Point of Care 125 mg/dL (70-110)
--- NOTE | 2023-04-18 10:31 | PM.PN ---
Subjective Subjective: getting HD Medications: Reviewed: Yes Vitals/I&O/Wt Last Vital Signs Temp 96.8 F L 04/18/23 08:27 Pulse 82 04/18/23 08:27 Resp 16 04/18/23 08:27 BP 152/80 04/18/23 08:27 Pulse Ox 94 04/18/23 07:48 O2 Del Method Room Air 04/18/23 07:48 O2 Flow Rate 2 04/15/23 08:00 FiO2 2 03/29/23 07:48 04/17/23 04/18/23 04/18/23 22:59 06:59 14:59 Intake Total 120 / 360 Balance 120 / 360 Weight last 48 hrs Weight 88.677 kg Weight 90.463 kg Weight 90.3 kg Physical Exam Narrative: awake , alert HEENT PEERLA + edema Extremity: NARRATIVE EXTREMITY EXAM: trace edema Urinary Catheter Management: Conteh: Cath Placed During This Visit: yes Reason for Continuing Indwelling Catheter: Accurate Measurement of Urinary Output in Critically Ill Patients Urinary Catheter Date of Insertion: 03/27/23 Urinary Catheter Time of Insertion: 19:10 Data 04/18/23 04:55 04/18/23 04:55 A&P Assessment and plan (1) MAYTE (acute kidney injury): Plan 1. Acute kidney injury due to sepsis, 2. E.coli (pansensitive) sepsis s/p repair of perforated sigmoid colon, now has abdominal abscess , was not able to drain , repeat CT done 3. Increased anion gap metabolic acidosis due to lactate and renal impairment. Resolved with sodium bicarbonate infusion. 4. new onset atrial fibrillation 5. 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 possible polycystic kidney disease, baseline eGFR 15 ml/min 6. Anemia, history of recent transfusion, iron deficient, received transfusion pRBC 7. History of diabetes, hypertension, coronary artery disease 8. pleural effusion Discussed in detail with at bedside. s/p PC placement on 04/01. , HD started . Socia work to arrange for out pt HD , can do twice /week HD HD today Attestations Medical Necessity Statement*: per medicine team Coding Level of Care Code Acute Code for [facility] Fwd Diagnoses MAYTE (acute kidney injury) N17.9
--- NOTE | 2023-04-18 11:30 | PC.HD ---
Lines reversed during treatment due to unacceptably high AP machine pressures. AP pressures remained elevated after reversal, but blood flow rate was able to be increased back to prescribed rate of 350.
[2023-04-18] MEDS: metoprolol tartrate 25 mg Tablet 50 MG PO (11:59)
[2023-04-18] MEDS: finasteride 5 mg Tablet PO (11:59)
[2023-04-18] MEDS: apixaban 5 mg Tablet PO (11:59)
[2023-04-18] MEDS: buPROPion XL (24 HR) 150 mg Tablet PO (11:59)
[2023-04-18] MEDS: citalopram 20 mg Tablet 40 MG PO (12:00)
[2023-04-18] MEDS: carbidopa-levodopa 25-100mg Tablet 1 EACH PO (12:00)
[2023-04-18] MEDS: amiodarone 200 mg Tablet PO (12:00)
[2023-04-18] MEDS: metroNIDAZOLE 500 MG Tablet PO (12:00)
--- NOTE | 2023-04-18 12:38 | PC.NURSE ---
report called to Tatiana GARZA at [facility]
== END 2023-04-18 12:45 | disposition skilled nursing facility (03) | DRG 907 ==
LOC: ER 17:43 → OR 18:20 → ICU 20:58 → MEDSURG 04-09 14:15
PROVIDERS: Family Medicine; Internal Medicine; Student in an Organized Health Care Education/Training Program; Admitting Provider Surgery; Emergency Provider Emergency Medicine; PCP Family Medicine; Visit Provider Family Medicine
PROC: 0DQN0ZZ Repair Sigmoid Colon, Open Approach (ICD-10-PCS; CPT 49000; principal; 2023-03-27 18:30)
PROC: 02HV33Z Insertion of Infusion Device into Superior Vena Cava, Percutaneous Approach (ICD-10-PCS; principal; 2023-04-01 11:45)
DX: K91.71 Accidental puncture and laceration of a digestive system organ or structure during a digestive system procedure (principal); A41.9 Sepsis, unspecified organism; R65.21 Severe sepsis with septic shock; K65.1 Peritoneal abscess; J96.01 Acute respiratory failure with hypoxia; G93.41 Metabolic encephalopathy; T81.43XA Infection following a procedure, organ and space surgical site, initial encounter; I13.2 Hypertensive heart and chronic kidney disease with heart failure and with stage 5 chronic kidney disease, or end stage renal disease; N18.5 Chronic kidney disease, stage 5; I50.22 Chronic systolic (congestive) heart failure; A04.72 Enterocolitis due to Clostridium difficile, not specified as recurrent; I24.8 Other forms of acute ischemic heart disease; I82.421 Acute embolism and thrombosis of right iliac vein; I82.411 Acute embolism and thrombosis of right femoral vein; N17.9 Acute kidney failure, unspecified; E87.20 Acidosis, unspecified; T82.49XA Other complication of vascular dialysis catheter, initial encounter; B37.0 Candidal stomatitis; L76.34 Postprocedural seroma of skin and subcutaneous tissue following other procedure; F05 Delirium due to known physiological condition; Y83.8 Other surgical procedures as the cause of abnormal reaction of the patient, or of later complication, without mention of misadventure at the time of the procedure; B96.20 Unspecified Escherichia coli [E. coli] as the cause of diseases classified elsewhere; I25.10 Atherosclerotic heart disease of native coronary artery without angina pectoris; Z95.5 Presence of coronary angioplasty implant and graft; E13.22 Other specified diabetes mellitus with diabetic chronic kidney disease; Z86.73 Personal history of transient ischemic attack (TIA), and cerebral infarction without residual deficits; E78.5 Hyperlipidemia, unspecified; I25.2 Old myocardial infarction; N40.0 Benign prostatic hyperplasia without lower urinary tract symptoms; I48.91 Unspecified atrial fibrillation; Z79.51 Long term (current) use of inhaled steroids; Z87.891 Personal history of nicotine dependence; D63.1 Anemia in chronic kidney disease; G47.33 Obstructive sleep apnea (adult) (pediatric); Z99.89 Dependence on other enabling machines and devices; E87.70 Fluid overload, unspecified; E87.6 Hypokalemia; Y81.8 Miscellaneous general- and plastic-surgery devices associated with adverse incidents, not elsewhere classified; Z66 Do not resuscitate
CPT/HCPCS: 32555; 36415; 36416; 36430; 36573; 36592; 36600; 49083; 51702; 70450; 71045; 71250; 74018; 74176; 74177; 76705; 77001; 80048; 80053; 80061; 80202; 80503; 81001; 82042; 82150; 82465; 82550; 82570; 82728; 82803; 82945; 82962; 83036; 83540; 83550; 83605; 83615; 83735; 83880; 83986; 84075; 84100; 84145; 84157; 84315; 84443; 84478; 84484; 84560; 85007; 85014; 85025; 85610; 85730; 86140; 86705; 86706; 86803; 86850; 86900; 86920; 87015; 87040; 87070; 87075; 87077; 87116; 87150; 87186; 87205; 87206; 87340; 87426; 87486; 87493; 87581; 87633; 87641; 87801; 88304; 88305; 89050; 90935; 92523; 92610; 93005; 93970; 94664; 96365; 96367; 96372; 96375; 96376; 97110; 97116; 97161; 97166; 97530; 97535; 99285; A4222; A4570; C1751; C8929; C9113; J0282; J0330; J0360; J0744; J1100; J1170; J1450; J1644; J1815; J1940; J2060; J2185; J2250; J2270; J2371; J2405; J2543; J2704; J2710; J3010; J3370; J3475; J3480; J3490; J7030; J7040; J7050; J7060; J7070; J7799; P9016; P9045; P9046; P9047; Q3014; Q9956; Q9967

== ENCOUNTER 2023-05-01 08:36 | Emergency (ER) | payer MEDICARE, SELFPAY ==
[2023-05-01 08:37] VITALS: BP 147/93; PULSE 96; RESP 16; TEMP 36.9; O2SAT 100; BMI 27.1
--- NOTE | 2023-05-01 08:38 | XR_ITS ---
WS: [id number] EXAMINATION: XR chest 1V portable [id number] REASON FOR EXAM: dyspnea/cough COMPARISON: 04/08/2023 ORDER DATE: 05/01/2023 8:51 AM TECHNIQUE: A single, portable frontal chest x-ray was obtained. X-RAY FINDINGS: There is a right subclavian approach dual lumen central venous catheter again seen projecting to the SVC/right atrium. Lungs: There is grossly stable left lower lobe infiltrate but with increasing left pleural effusion. Pleural spaces: There is no pneumothorax. Heart/Mediastinum: The heart size is not well assessed. Bones/joints: Unremarkable. IMPRESSION: Grossly stable left lower lobe infiltrate and increasing left pleural effusion.
--- NOTE | 2023-05-01 08:38 | CT_ITS ---
WS: [id number] CT HEAD TECHNIQUE: Noncontrast CT of the head obtained from the skullbase to the vertex. CLINICAL INFORMATION: AMS COMPARISON: CT 03/28/2023 DLP: 1154.[address] scans at [facility] use at least one of these dose optimization techniques: automated e xposure control; mA and/or kV adjustment per patient size (includes targeted exams where dose is matc hed to clinical indication); or iterative reconstruction. FINDINGS: No evidence of intracranial hemorrhage or mass effect. Ventricular system and basal cisterns are membreno nt. Moderate small vessel changes with moderate parenchymal volume loss. No extra-axial fluid collect ions. No evidence of mass or mass effect. Paranasal sinuses and mastoid air cells are well aerated. .Normal visualized soft tissues. IMPRESSION: 1. No evidence of intracranial hemorrhage or mass effect. 2. Moderate small vessel changes. Moderate parenchymal volume loss. 3. 4. No acute intracranial findings.
--- NOTE | 2023-05-01 08:50 | W.ED.AMS ---
HPI - Altered Mental Status General: Chief Complaint: Altered Mental Status Stated Complaint: ams Time Seen by Provider: 05/01/23 08:37 Source: patient Mode of arrival: EMS History of Present Illness: 78-year-old male presents via EMS from the residential with report of altered mental status. Nursing reported been altered and hallucinating. On arrival here he is awake alert answers questions appropriately. He is a end-stage renal disease patient and undergoes dialysis Saturdays he had his regular dialysis yesterday. Report was they really do not pull a lot of fluid off more just filtration. Does have a history of atrial fibrillation he is on amiodarone metoprolol and Eliquis. Family reports that patient had a chest x-ray yesterday suggestive of pneumonia and was started on antibiotics last night. Last run of dialysis was cut short because patient was not feeling well is due for dialysis today. MD complaint: confusion Severity: moderate Consistency of symptoms: Waxing and Waning Associated symptoms: Deny auditory hallucinations, visual hallucinations, delusions, depression, homicidal ideation, racing thoughts or suicidal ideation Review of Systems Const: Denies: fever(s), chills, body aches, change in appetite, fatigue or malaise ENMT: Denies: throat pain, ear or mastoid pain, nasal discharge or nasal congestion Card: Denies: chest pain, edema, dyspnea on exertion or orthopnea Resp: Denies: dyspnea, productive cough or non-productive cough GI: Denies: abdominal pain, nausea, vomiting, hematemesis, coffee ground emesis, diarrhea, constipation, bloating, hematochezia or melena : Denies: flank pain, dysuria, urinary frequency or urinary urgency Skin/Breast: Denies: rash or pruritus Psych: Denies: depression, visual hallucinations, auditory hallucinations, suicidal ideation or homicidal ideation PFS ED PFSH: Medical History ASHD (arteriosclerotic heart disease) BPH (benign prostatic hyperplasia) Diabetes 1.5, managed as type 2 History of stroke HTN (hypertension) Hyperlipidemia Myocardial infarct Surgical History H/O esophagogastroduodenoscopy (09/26/20) History of colonoscopy (09/26/20) History of knee replacement (~2014) History of shoulder replacement S/P knee replacement S/P PTCA (percutaneous transluminal coronary angioplasty) S/P shoulder replacement Family History Mother Dementia Denies family history of Family history of premature coronary artery disease Social History Smoking and tobacco status: former smoker Quit status (tobacco): has quit using tobacco Year quit tobacco: 1971 Former quit date comment: 2ppd x 10 years Alcohol intake: never Household members: spouse Marital status: service: No Current occupational status: retired Physical Exam Const: GENERAL APPEARANCE: cooperative and comfortable ORIENTATION/CONSCIOUSNESS: Yes awake HENMT: COMMON NORMALS: normocephalic, atraumatic and hearing grossly normal bilaterally HEAD & SCALP: normocephalic and atraumatic Eye: COMMON NORMALS: Equal, round and reactive pupils present, EOMs intact bilaterally, conjunctivae normal and no scleral icterus CONJUNCTIVA: Yes conjunctivae normal PUPIL: Yes Equal, round and reactive pupils present Neck/C-Spine: COMMON NORMALS: full ROM, no lymphadenopathy, supple and no JVD Lymph: LYMPHATIC: no lymphadenopathy noted and no lymphedema noted Resp: COMMON NORMALS: normal respiratory effort, No retractions, No use of accessory muscles and clear to auscultation bilaterally AUSCULTATION: clear to auscultation bilaterally Cardio: COMMON NORMALS: no JVD, regular rate, regular rhythm and No murmurs present (Cardio) RATE: regular rate RHYTHM: regular rhythm GI: COMMON NORMALS: Soft to palpation and No hepatosplenomegaly present AUSCULTATION: Yes normoactive bowel sounds PALPATION: Yes Soft to palpation, No Tenderness to palpation present (GI), No Guarding due to palpation present (GI) and Yes No hepatosplenomegaly present Extremity: COMMON NORMALS: normal to inspection, capillary refill normal, no clubbing, cyanosis or edema, no calf tenderness and no pedal edema Psych: THOUGHT CONTENT: No delusions Skin: COMMON NORMALS: no rashes or lesions noted GENERAL SKIN EXAM: no rashes or lesions noted Course Vital Signs: Vital signs: Vital Signs Temperature 98.4 F 05/01/23 08:37 Pulse Rate 95 05/01/23 10:35 Respiratory Rate 20 H 05/01/23 10:35 Blood Pressure 147/93 05/01/23 10:35 Pulse Oximetry 93 05/01/23 10:35 Oxygen Delivery Me thod Room Air 05/01/23 10:35 MDM - Altered Mental Status Medical Decision Making Chest x-ray read as unchanged. He is on antibiotics for left lower lobe infiltrate his oxygen sat is 93% on room air when tracking well the rest of his vitals are stable. I suspect some of this may be an exacerbation of his cognitive defect in part due to his chronic underlying medical issues his Parkinson's and now with the added stress of the dialysis. We will start on Seroquel 25 at at bedtime follow-up with his primary care doctor continue the oral antibiotics. We will give 25 down 25 tonight. Recommend avoiding benzodiazepines Medical Records I reviewed the patient's medical records. Lab Data I reviewed the patient's lab results. 05/01/23 08:29 05/01/23 08:29 Laboratory Results WBC 10.64 10^3/uL (3.29-11.43) 05/01/23 08:29 RBC 2.85 10^6/uL (3.85-5.65) L 05/01/23 08:29 Hgb 8.30 g/dL (11.27-16.99) L 05/01/23 08:29 Hct 26.1 % (37-53) L 05/01/23 08:29 MCV 91.6 fl (82-101) 05/01/23 08: MCH 29.1 pg (27-33) 05/01/23 08: MCHC 31.8 g/dL (30-55) 05/01/23 08:29 RDW 15.6 % (12.1-15.1) H 05/01/23 08:29 Plt Count 355 10^3/cmm (157-399) 05/01/23 08:29 MPV 9.1 fL (7.4-10.4) 05/01/23 08:29 Neut % (Auto) 75.0 % 05/01/23 08:29 Lymph % (Auto) 11.2 % 05/01/23 08:29 Bollinger % (Auto) 10.6 % 05/01/23 08:29 Eos % (Auto) 2.5 % 05/01/23 08: Baso % (Auto) 0.1 % 05/01/23 08: Neut # (Auto) 7.98 10^3/uL (1.8-7.7) H 05/01/23 08: Lymph # (Auto) 1.2 10^3/uL (0.8-4.8) 05/01/23 08:29 Bollinger # (Auto) 1.1 10^3/uL (0.2-0.9) H 05/01/23 08: Eos # (Auto) 0.3 10^3/uL (0.0-0.8) 05/01/23 08: Baso # (Auto) 0.0 10^3/uL (0.0-0.1) 05/01/23 08: Nucleated RBC % (auto) 0 % 05/01/23 08: Nucleated RBCs # 0.0 /100WBC 05/01/23 08:29 Sodium 136 mmol/L (136-145) 05/01/23 08: Potassium 3.4 mmol/L (3.5-5.1) L 05/01/23 08: Chloride 95 mmol/L (98-107) L 05/01/23 08: Carbon Dioxide 30 mmol/L (22-29) H 05/01/23 08:29 Anion Gap 14.4 (5-19) 05/01/23 08:29 BUN 10 mg/dL (8-23) 05/01/23 08: Creatinine 4.1 mg/dL (0.7-1.2) H 05/01/23 08: GFR Calculation Not Reportable 05/01/23 08: Glucose 85 mg/dL (65-115) 05/01/23 08: Calculated Osmolality 280 mOsm/kg (285-295) L 05/01/23 08: Calcium 8.9 mg/dL (8.5-10.5) 05/01/23 08: Total Bilirubin 0.4 mg/dL (0.15-1.2) 05/01/23 08:29 AST 10 U/L (0-40) 05/01/23 08: ALT < 5 U/L (0-41) 05/01/23 08: Alkaline Phosphatase 80 U/L (40-130) 05/01/23 08:29 Troponin T Baseline 83 ng/L (0-15) H 05/01/23 08:29 Troponin T 120 Minute 78.20 ng/L (0-15) H 05/01/23 09:58 Delta Troponin T -4.80 ABS# (0-10) L 05/01/23 09:58 Total Protein 6.3 g/dL (6.6-8.7) L 05/01/23 08:29 Albumin 3.6 g/dL (3.5-5.2) 05/01/23 08:29 Globulin 2.7 g/dL (1.3-4.6) 05/01/23 08:29 All radiology interpretation(s) finalized by discharge Discharge Plan Discharge Patient Disposition: Home Clinical Impression: Cognitive decline, End stage renal disease on dialysis, Parkinson's disease Condition: Stable Prescriptions: New Seroquel 25 mg tablet 25 mg PO .QHS Qty: 30 0RF No Action nitroglycerin [Nitrostat] 0.4 mg tablet, sublingual 0.4 mg SUBLINGUAL Q5M PRN (Reason: Chest Pain) atorvastatin 40 mg tablet 40 mg PO DAILY@2100 bupropion HCl [Wellbutrin XL] 150 mg tablet extended release 24 hr 150 mg PO DAILY@0800 carbidopa-levodopa 25-100 mg tablet 1 tab PO DAILY Rx Instructions: UNTIL 05/03/23 ferrous fumarate 325 mg (106 mg iron) tablet 325 mg PO DAILY finasteride 5 mg tablet 5 mg PO DAILY albuterol sulfate [Ventolin HFA] 90 mcg/actuation HFA aerosol inhaler 1 inh inhalation QID PRN (Reason: shortness of breath or wheezing) Qty: 8.5 3RF calcitriol 0.25 mcg capsule See Rx Instructions .ROUTE .COMPLEX Rx Instructions: 0.25 mcg orally 3 times weekly on Friday, Friday, Friday cholecalciferol (vitamin D3) [Vitamin D3] 50 mcg (2,000 unit) Tablet 100 mcg PO DAILY pantoprazole 40 mg tablet,delayed release (DR/EC) 40 mg PO DAILY acyclovir 200 mg capsule 200 mg PO 5XD PRN (Reason: outbreaks) amiodarone [Pacerone] 200 mg Tablet 200 mg PO DAILY 30 Days Qty: 30 0RF Eliquis 5 mg Tablet 5 mg PO Q12H 30 Days Qty: 60 0RF metronidazole 500 mg Tablet 500 mg PO TID 14 Days Qty: 42 0RF ciprofloxacin HCl 500 mg Tablet 500 mg PO Q18H 14 Days Qty: 19 0RF metoprolol tartrate 25 mg Tablet 50 mg PO BID@0900,2100 30 Days Qty: 60 0RF vancomycin 125 mg capsule 125 mg PO Q6H 14 Days Qty: 56 0RF insulin aspart U-100 [Novolog FlexPen U-100 Insulin] 100 unit/mL (3 mL) insulin pen See Rx Instructions .ROUTE .COMPLEX Qty: 15 0RF Rx Instructions: Inject, subcut, 3 times daily, after meals, based on low-dose sliding scale. BS 141-180= 0ML, 181-220= 2ML, 221-260= 4ML, 261-300= 6ML, 301-350= 8ML, 351-400= 10ML, 401-450= 12ML, 451-500= 14ML. citalopram 30 mg Capsule 30 mg PO DAILY Milk of Magnesia 400 mg/5 mL Suspension 30 ml PO DAILY PRN (Reason: Constipation) Dulcolax (bisacodyl) 10 mg Suppository 10 mg MO DAILY PRN (Reason: Constipation) Fleet Enema 19-7 gram/118 mL Enema 118 ml MO DAILY PRN (Reason: Constipation) doxycycline hyclate 100 mg Tablet 100 mg PO BID Rx Instructions: FOR PNEUMONIA FOR 7 DAYS. Xanax 0.25 mg Tablet 0.25 mg PO DAILY PRN (Reason: Anxiety) cyanocobalamin (vitamin B-12) 1,000 mcg/mL Solution 1,000 mcg SUBCUT DAILY Rx Instructions: STARTING ON AND ENDING ON THE 6TH EVERY MONTH Aspir-81 81 mg Tablet,Delayed Release (Dr/Ec) 81 mg PO DAILY Discharge Orders: Discharge ED (Routine); Ordered 05/01/23 Ordered By: Yg Voss Referrals: Ramiro Villavicencio MD [Primary Care Provider] - Discharge Diet: Usual diet Discharge Activity: Resume usual activity Patient Instructions: Dementia (ED), Opioid Safety Activity Restrictions/Additional Instructions: Suspect the change in mental status combination of chronic medical illnesses and his Parkinson's. No acute findings or recommend that we add Seroquel 25 at at bedtime. Coding Level of Care Code ED [employer] for Milind Johnston
[2023-05-01 08:55] LABS: Basophils % 0.1 %; Eosinophils # 0.3 10^3/uL (0.0-0.8); Eosinophils % 2.5 %; Hematocrit 26.1 % (37-53); Lymphocytes # 1.2 10^3/uL (0.8-4.8); Lymphocytes % 11.2 %; Mean Corpuscular HGB Conc 31.8 g/dL (30-55); Mean Corpuscular Hemoglobin 29.1 pg (27-33); Mean Corpuscular Volume 91.6 fl (82-101); Mean Platelet Volume 9.1 fL (7.4-10.4); Monocytes # 1.1 10^3/uL (0.2-0.9); Monocytes % 10.6 %; Neutrophils # 7.98 10^3/uL (1.8-7.7); Nucleated Red Blood Cells % 0 %; Platelet Count 355 10^3/cmm (157-399); Red Blood Count 2.85 10^6/uL (3.85-5.65); Red Cell Distribution Width 15.6 % (12.1-15.1); White Blood Count 10.64 10^3/uL (3.29-11.43)
--- NOTE | 2023-05-01 09:14 | ECG_ITS ---
[facility] Test Date: 2023-05-01 Pat Name: Jhon Marcos Department: Room: Gender: Male General Operator: : 1945 Requested By: Yg Mesa Order Number: [id number] Shannan MD: Sander Forde M.D. Measurements Intervals [place] Rate: 93 P: 32 [place]: 183 QRS: -26 QRSD: 84 T: 11 QT: 330 QTc: 411 Interpretive Statements SINUS RHYTHM LOW QRS VOLTAGE IN PRECORDIAL LEADS [QRS DEFLECTION < 1.0 mV IN CHEST LEADS] INFERIOR MYOCARDIAL INFARCTION , PROBABLY OLD [40+ ms Q WAVE AND/OR ST/T ABNORMALITY IN II/aVF] Compared to ECG 04/10/2023 23:18:53 Left-axis deviation no longer present Myocardial infarct finding still present Electronically Signed On 05-01-2023 15:55:36 CDT by Sander Forde M.D. [id number]
[2023-05-01 09:17] LABS: Alanine Aminotransferase < 5 U/L (0-41); Albumin Level 3.6 g/dL (3.5-5.2); Alkaline Phosphatase 80 U/L (40-130); Anion Gap 14.4 (5-19); Aspartate Amino Transferase 10 U/L (0-40); Blood Urea Nitrogen 10 mg/dL (8-23); Calcium 8.9 mg/dL (8.5-10.5); Carbon Dioxide 30 mmol/L (22-29); Chloride 95 mmol/L (98-107); Globulin 2.7 g/dL (1.3-4.6); Glucose 85 mg/dL (65-115); Osmolality Calculated 280 mOsm/kg (285-295); Potassium 3.4 mmol/L (3.5-5.1); Sodium 136 mmol/L (136-145); Total Bilirubin 0.4 mg/dL (0.15-1.2); Total Protein 6.3 g/dL (6.6-8.7)
[2023-05-01 09:18] LABS: Troponin(5th) Baseline 83 ng/L (0-15)
[2023-05-01 09:20] LABS: Creatinine Clr Calc Pharmacy 16.8389
[2023-05-01 10:35] VITALS: BP 147/93; PULSE 95; RESP 20; O2SAT 93
[2023-05-01] MEDS: quetiapine 25 mg Tablet PO (11:06)
== END 2023-05-01 11:35 | disposition home or self-care (01) ==
PROVIDERS: Emergency Provider Family Medicine; PCP Family Medicine
DX: G20.A1 Parkinson's disease without dyskinesia, without mention of fluctuations (principal); R41.81 Age-related cognitive decline; E13.22 Other specified diabetes mellitus with diabetic chronic kidney disease; I12.0 Hypertensive chronic kidney disease with stage 5 chronic kidney disease or end stage renal disease; N18.6 End stage renal disease; Z99.2 Dependence on renal dialysis; Z86.73 Personal history of transient ischemic attack (TIA), and cerebral infarction without residual deficits; E78.5 Hyperlipidemia, unspecified; I25.2 Old myocardial infarction; Z87.891 Personal history of nicotine dependence; Z79.82 Long term (current) use of aspirin; Z79.01 Long term (current) use of anticoagulants; Z79.4 Long term (current) use of insulin
CPT/HCPCS: 36415; 70450; 71045; 80053; 84484; 85025; 87040; 93005; 99285

== ENCOUNTER → 2023-05-09 10:18 | Outpatient (BNVA) | payer MEDICARE, SELFPAY | PROVIDERS: PCP Family Medicine; Visit Provider Internal Medicine Cardiovascular Disease | DX: I82.401 Acute embolism and thrombosis of unspecified deep veins of right lower extremity (principal); J90 Pleural effusion, not elsewhere classified; I48.91 Unspecified atrial fibrillation; G47.33 Obstructive sleep apnea (adult) (pediatric); E78.5 Hyperlipidemia, unspecified; I25.10 Atherosclerotic heart disease of native coronary artery without angina pectoris; Z98.61 Coronary angioplasty status; I25.2 Old myocardial infarction; I13.2 Hypertensive heart and chronic kidney disease with heart failure and with stage 5 chronic kidney disease, or end stage renal disease; E13.22 Other specified diabetes mellitus with diabetic chronic kidney disease; N18.6 End stage renal disease; I50.20 Unspecified systolic (congestive) heart failure; Z99.2 Dependence on renal dialysis; N17.9 Acute kidney failure, unspecified; Z79.4 Long term (current) use of insulin; Z79.01 Long term (current) use of anticoagulants; Z87.891 Personal history of nicotine dependence; Z87.898 Personal history of other specified conditions | CPT/HCPCS: 99215 ==

== ENCOUNTER 2023-05-17 10:10 | Observation (INO) | payer MEDICARE, SELFPAY ==
[2023-05-17] VITALS (8 sets, daily range): BP systolic 122–158; BP diastolic 79–98; PULSE 67–93; RESP 16–24; TEMP 36.6; O2SAT 96–100
--- NOTE | 2023-05-17 10:24 | CTR_ITS ---
PROCEDURE INFORMATION: Exam: CT Head Without Contrast Exam date and time: 05/17/2023 10:51 AM Age: 78 years old Clinical indication: Stroke-like symptoms; Altered mental status/memory loss; Additional info: AMS, possible fall/trauma TECHNIQUE: Imaging protocol: Computed tomography of the head without contrast. Radiation optimization: All CT scans at this facility use at least one of these dose optimization techniques: automated exposure control; mA and/or kV adjustment per patient size (includes targeted exams where dose is matched to clinical indication); or iterative reconstruction. Other technique: STROKE PROTOCOL was implemented. REPORTING DATA: Count of CT and Cardiac NM exams in prior 12 months: This patient has received 8 known CTs and 0 known cardiac nuclear medicine studies in the 12 months prior to the current study. COMPARISON: CT head wo con* [id number] 05/01/2023 8:51 AM RADIATION DOSE METRICS: Total DLP (mGy-cm): 1104.58 FINDINGS: Brain: No intracranial hemorrhage, edema or other acute abnormality is seen in the brain. There is generalized chronic atrophy with prominence of the ventricles and sulci. There are scattered chronic white matter ischemic changes. Cerebral ventricles: The ventricles are prominent consistent with chronic atrophy. Paranasal sinuses: Visualized sinuses are unremarkable. No fluid levels. Mastoid air cells: Visualized mastoid air cells are well aerated. Bones/joints: Unremarkable. No acute fracture. Soft tissues: Unremarkable. CT/CT head thrombolytic [id number] IMPRESSION: No acute intracranial abnormality. ASSESSMENT: ASPECTS ([place] Stroke Program Early CT Score) is 10.
--- NOTE | 2023-05-17 10:25 | ECG_ITS ---
[facility] Test Date: 2023-05-17 Pat Name: Jhon Marcos Department: Room: Gender: Male Commercial Manager: : 1945 Requested By: Oliver Flores Order Number: [id number] Shannan MD: Gabriela Church M.D. Measurements Intervals [place] Rate: 78 P: 12 [place]: 168 QRS: -34 QRSD: 101 T: -10 QT: 402 QTc: 459 Interpretive Statements SINUS RHYTHM LOW QRS VOLTAGE IN PRECORDIAL LEADS [QRS DEFLECTION < 1.0 mV IN CHEST LEADS] INCOMPLETE RIGHT BUNDLE BRANCH BLOCK [90+ ms QRS DURATION, TERMINAL R IN V1/V2, 40+ ms S IN I/aVL/V4/V5/V6] INFERIOR MYOCARDIAL INFARCTION , OF INDETERMINATE AGE [40+ ms Q WAVE AND/OR ST/T ABNORMALITY IN II/aVF] Compared to ECG 05/01/2023 09:14:41 Incomplete right bundle-branch block now present Myocardial infarct finding still present Electronically Signed On 05-18-2023 10:58:10 CDT by Gabriela Church M.D. [id number]
--- NOTE | 2023-05-17 10:28 | W.ED.WEAKNES ---
HPI - Weakness General: Chief complaint: Weakness Stated complaint: AMS Time Seen by Provider: 05/17/23 10:24 History of Present Illness: Jhon Marcos is an 78-year-old man with a complicated history that includes dementia, prior stroke, cardiovascular disease, BPH, diabetes, hypertension, hyperlipidemia, prior AMI, CHF, atrial fibrillation, chronic renal disease and has dialysis 3 times a week. He has also had prior iliac DVT, right leg DVT, Patient is anticoagulated with 5 mg twice daily Eliquis and aspirin daily. I spoke with the charge nurse from for [facility] who does his dialysis 3 times a week?Friday. She states that the patient was brought by [place] for dialysis this morning with altered mentation. Patient usually is confused but conversational. Patient was also noted as having a wound to the right side of his sabianist. When I spoke with Ambreen Escobedo charge nurse, she reports that patient has had prolonged confusion following dialysis for the last 3 to 4 weeks. This appears to be worsening and patient is slower to clear and return to baseline. She states that he also had a fall from standing while in the restroom on night. There is a superficial abrasion/laceration with a scab over it to the right sabianist. Patient was not evaluated following that fall. Patient is nonverbal here in the emergency department I did speak with the patient's next of kin, daughter Krista at [phone]. Patient is a full code Review of Systems Narrative: Unable to perform review of systems due to patient's mentation. Reported fall, reported worsening confusion [facility] ED PFSH: Medical History ASHD (arteriosclerotic heart disease) BPH (benign prostatic hyperplasia) Diabetes 1.5, managed as type 2 History of stroke HTN (hypertension) Hyperlipidemia Myocardial infarct Surgical History H/O esophagogastroduodenoscopy (09/26/20) History of colonoscopy (09/26/20) History of knee replacement (~2014) History of shoulder replacement S/P knee replacement S/P PTCA (percutaneous transluminal coronary angioplasty) S/P shoulder replacement Family History Mother Dementia Denies family history of Family history of premature coronary artery disease Social History Smoking and tobacco/nicotine status: former use of tobacco/nicotine Quit status (tobacco/nicotine): has quit using Year quit tobacco: 1971 Former quit date comment: 2ppd x 10 years Alcohol intake: never Household members: spouse Marital status: service: No Current occupational status: retired Physical Exam Narrative: EXAM NARRATIVE: Alert?eyes open, will track. Conjugate gaze. He is tachypneic, has increased work of breathing with abdominal breathing present. He is nonverbal at this time, will follow simple commands?will squeeze hands, Clear breath sounds to auscultation, symmetrical chest rise, Heart tones?sinus, normal heart tones. Abdomen nontender to palpation with normal bowel sounds. Abdominal surgical scar Edema in bilateral lower extremities Course Vital Signs: Vital signs: Vital Signs Pulse Rate 93 05/17/23 11:37 Respiratory Rate 16 05/17/23 11:37 Blood Pressure 142/98 05/17/23 10:46 Pulse Oximetry 98 05/17/23 11:37 Oxygen Delivery Me thod Nasal Cannula 05/17/23 11:37 Oxygen Flow Rate 2 05/17/23 11:37 MDM - Weakness Medical Decision Making Patient was evaluated in the emergency department for altered mentation. Differential diagnosis includes stroke, hemorrhagic versus ischemic, worsening edema, electrolyte abnormality,, AMI, worsening renal function, liver failure, drugs/toxins, UTI, alcohol intoxication Patient underwent a stroke evaluation but without activation since it is unclear when symptoms started. CT head?thrombolytic?reveals no acute findings. Once patient returned from CT and we were working to place a indwelling catheter, patient became verbal. Since that time he has been more conversational. Laboratory studies completed revealed no leukocytosis. His hemoglobin appears to be stable at 9.8. His potassium is low at 3.2. We have given him 20 mEq of potassium chloride. His creatinine is slightly worse but this would be anticipated since he missed his dialysis today. Troponin is 83. This appears to be his baseline with dialysis. Patient has refused catheter and has been unable to urinate. It is reported that he does still make urine. I talked with Dr Tracey at 1245. Reported his stroke assessment, and ongoing assessment. I believe the patient has returned to baseline although somewhat more somnolent and generalized weakness is somewhat worse. It is difficult to assess with his baseline dementia and comorbidities. The hospitalist is going to admit for observation going to get nephrology on board. Dr. Malhotra, my attending is aware and has placed orders. Lab Data 05/17/23 10:37 05/17/23 10:[address] 05/17/23 10:24 IMPRESSION: No acute intracranial abnormality. ASSESSMENT: ASPECTS ([place]a Stroke Program Early CT Score) is 10. Laboratory Results WBC 8.93 10^3/uL (3.29-11.43) 05/17/23 10:37 RBC 3.29 10^6/uL (3.85-5.65) L 05/17/23 10:37 Hgb 9.80 g/dL (11.27-16.99) L 05/17/23 10:37 Hct 31.4 % (37-53) L 05/17/23 10:37 MCV 95.4 fl (82-101) 05/17/23 10:37 MCH 29.8 pg (27-33) 05/17/23 10:37 MCHC 31.2 g/dL (30-55) 05/17/23 10:37 RDW 16.9 % (12.1-15.1) H 05/17/23 10:37 Plt Count 330 10^3/cmm (157-399) 05/17/23 10:37 MPV 8.7 fL (7.4-10.4) 05/17/23 10:37 Neut % (Auto) 62.0 % 05/17/23 10:37 Lymph % (Auto) 25.3 % 05/17/23 10:37 Dickenson % (Auto) 10.5 % 05/17/23 10:37 Eos % (Auto) 1.8 % 05/17/23 10:37 Baso % (Auto) 0.1 % 05/17/23 10:37 Neut # (Auto) 5.53 10^3/uL (1.8-7.7) 05/17/23 10:37 Lymph # (Auto) 2.3 10^3/uL (0.8-4.8) 05/17/23 10:37 Dickenson # (Auto) 0.9 10^3/uL (0.2-0.9) 05/17/23 10:37 Eos # (Auto) 0.2 10^3/uL (0.0-0.8) 05/17/23 10:37 Baso # (Auto) 0.0 10^3/uL (0.0-0.1) 05/17/23 10:37 Nucleated RBC % (auto) 0 % 05/17/23 10:37 Nucleated RBCs # 0.0 /100WBC 05/17/23 10:37 PT 21.40 SECONDS (12.1-14.9) H 05/17/23 10:37 INR 1.78 (0.8-1.2) H 05/17/23 10:37 APTT 34.3 SECONDS (23.9-36.7) 05/17/23 10:37 Sodium 135 mmol/L (136-145) L 05/17/23 10:37 Potassium 3.2 mmol/L (3.5-5.1) L 05/17/23 10:37 Chloride 95 mmol/L (98-107) L 05/17/23 10:37 Carbon Dioxide 30 mmol/L (22-29) H 05/17/23 10:37 Anion Gap 13.2 (5-19) 05/17/23 10:37 BUN 11 mg/dL (8-23) 05/17/23 10:37 Creatinine 4.4 mg/dL (0.7-1.2) H 05/17/23 10:37 GFR Calculation Not Reportable 05/17/23 10:37 Glucose 93 mg/dL (65-115) 05/17/23 10:37 POC Glucose 121 mg/dL (70-110) H 05/17/23 11:00 Calculated Osmolality 279 mOsm/kg (285-295) L 05/17/23 10:37 Calcium 9.5 mg/dL (8.5-10.5) 05/17/23 10:37 Total Bilirubin 0.6 mg/dL (0.15-1.2) 05/17/23 10:37 AST 14 U/L (0-40) 05/17/23 10:37 ALT 8 U/L (0-41) 05/17/23 10:37 Alkaline Phosphatase 103 U/L (40-130) 05/17/23 10:37 Troponin T Baseline 83 ng/L (0-15) H 05/17/23 10:37 Total Protein 6.8 g/dL (6.6-8.7) 05/17/23 10:37 Albumin 3.6 g/dL (3.5-5.2) 05/17/23 10:37 Globulin 3.2 g/dL (1.3-4.6) 05/17/23 10:37 All radiology interpretation(s) finalized by discharge Discharge Plan Discharge Patient Disposition: Admitted As Inpatient Clinical Impression: AMS (altered mental status), Renal failure (ARF), acute on chronic Condition: Stable Prescriptions: No Action nitroglycerin [Nitrostat] 0.4 mg tablet, sublingual 0.4 mg SUBLINGUAL Q5M PRN (Reason: Chest Pain) atorvastatin 40 mg tablet 40 mg PO DAILY@2100 bupropion HCl [Wellbutrin XL] 150 mg tablet extended release 24 hr 150 mg PO DAILY@0800 carbidopa-levodopa 25-100 mg tablet 1 tab PO DAILY Rx Instructions: UNTIL 05/03/23 vancomycin 125 mg capsule 125 mg PO QID trazodone 100 mg tablet 100 mg PO DAILY ferrous fumarate 325 mg (106 mg iron) tablet 325 mg PO DAILY finasteride 5 mg tablet 5 mg PO DAILY albuterol sulfate [Ventolin HFA] 90 mcg/actuation HFA aerosol inhaler 1 inh inhalation QID PRN (Reason: shortness of breath or wheezing) Qty: 8.5 3RF calcitriol 0.25 mcg capsule See Rx Instructions .ROUTE .COMPLEX Rx Instructions: 0.25 mcg orally 3 times weekly on Friday, Friday, Friday cholecalciferol (vitamin D3) [Vitamin D3] 50 mcg (2,000 unit) Tablet 100 mcg PO DAILY pantoprazole 40 mg tablet,delayed release (DR/EC) 40 mg PO DAILY acyclovir 200 mg capsule 200 mg PO 5XD PRN (Reason: outbreaks) amiodarone [Pacerone] 200 mg Tablet 200 mg PO DAILY 30 Days Qty: 30 0RF Eliquis 5 mg Tablet 5 mg PO Q12H 30 Days Qty: 60 0RF metoprolol tartrate 25 mg Tablet 50 mg PO BID@0900,2100 30 Days Qty: 60 0RF insulin aspart U-100 [Novolog FlexPen U-100 Insulin] 100 unit/mL (3 mL) insulin pen See Rx Instructions .ROUTE .COMPLEX Qty: 15 0RF Rx Instructions: Inject, subcut, 3 times daily, after meals, based on low-dose sliding scale. BS 141-180= 0ML, 181-220= 2ML, 221-260= 4ML, 261-300= 6ML, 301-350= 8ML, 351-400= 10ML, 401-450= 12ML, 451-500= 14ML. citalopram 30 mg Capsule 30 mg PO DAILY Milk of Magnesia 400 mg/5 mL Suspension 30 ml PO DAILY PRN (Reason: Constipation) Dulcolax (bisacodyl) 10 mg Suppository 10 mg CO DAILY PRN (Reason: Constipation) Fleet Enema 19-7 gram/118 mL Enema 118 ml CO DAILY PRN (Reason: Constipation) doxycycline hyclate 100 mg Tablet 100 mg PO BID Rx Instructions: FOR PNEUMONIA FOR 7 DAYS. 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
[2023-05-17 10:45] LABS: Basophils % 0.1 %; Eosinophils # 0.2 10^3/uL (0.0-0.8); Eosinophils % 1.8 %; Hematocrit 31.4 % (37-53); Lymphocytes # 2.3 10^3/uL (0.8-4.8); Lymphocytes % 25.3 %; Mean Corpuscular HGB Conc 31.2 g/dL (30-55); Mean Corpuscular Hemoglobin 29.8 pg (27-33); Mean Corpuscular Volume 95.4 fl (82-101); Mean Platelet Volume 8.7 fL (7.4-10.4); Monocytes # 0.9 10^3/uL (0.2-0.9); Monocytes % 10.5 %; Neutrophils # 5.53 10^3/uL (1.8-7.7); Nucleated Red Blood Cells % 0 %; Platelet Count 330 10^3/cmm (157-399); Red Blood Count 3.29 10^6/uL (3.85-5.65); Red Cell Distribution Width 16.9 % (12.1-15.1); White Blood Count 8.93 10^3/uL (3.29-11.43)
[2023-05-17 10:57] LABS: INR 1.78 (0.8-1.2)
[2023-05-17 10:58] LABS: Partial Thromboplastin Time 34.3 SECONDS (23.9-36.7)
[2023-05-17 11:05] LABS: Alanine Aminotransferase 8 U/L (0-41); Albumin Level 3.6 g/dL (3.5-5.2); Alkaline Phosphatase 103 U/L (40-130); Anion Gap 13.2 (5-19); Aspartate Amino Transferase 14 U/L (0-40); Blood Urea Nitrogen 11 mg/dL (8-23); Calcium 9.5 mg/dL (8.5-10.5); Carbon Dioxide 30 mmol/L (22-29); Chloride 95 mmol/L (98-107); Globulin 3.2 g/dL (1.3-4.6); Glucose 93 mg/dL (65-115); Osmolality Calculated 279 mOsm/kg (285-295); Potassium 3.2 mmol/L (3.5-5.1); Sodium 135 mmol/L (136-145); Total Bilirubin 0.6 mg/dL (0.15-1.2); Total Protein 6.8 g/dL (6.6-8.7)
[2023-05-17 11:06] LABS: Troponin(5th) Baseline 83 ng/L (0-15)
[2023-05-17 11:06] LABS: Glucose Point of Care 121 mg/dL (70-110)
--- NOTE | 2023-05-17 11:06 | PC.NURSE ---
this nurse asked pt to place indwelling urinary catheter, pt stated No! . pt able to open eyes and this nurse asked pt do you know where you are pt responded with [facility] . pt seems agitated and refuses to give urine sample or allow this nurse to place catheter. blood sugar via fingerstick 121.
--- NOTE | 2023-05-17 11:41 | PC.PHAR ---
CONTACTED RHINA GRAMAJO FOR MED LIST 05/17 11:40AM
[2023-05-17] MEDS: potassium chloride premix 20 MEQ/100 ML 50 MEQ IV (12:05)
--- NOTE | 2023-05-17 12:10 | PC.NURSE ---
daughter at bedside. daughter states this is not pt's normal, he seems more altered than normal. daughter states pt fell at [facility] on and hit head, [facility] staff informed daughter it was not a big deal .
--- NOTE | 2023-05-17 12:29 | ECG_ITS ---
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 Measurements Intervals [place] Rate: 77 P: 43 KS: 179 QRS: -37 QRSD: 114 T: -13 QT: 413 QTc: 468 Interpretive Statements SINUS RHYTHM LEFT AXIS DEVIATION [QRS AXIS < -30] INCOMPLETE RIGHT BUNDLE BRANCH BLOCK [90+ ms QRS DURATION, TERMINAL R IN V1/V2, 40+ ms S IN I/aVL/V4/V5/V6] NONSPECIFIC T-WAVE ABNORMALITY Compared to ECG 05/17/2023 10:28:27 Left-axis deviation now present T-wave abnormality now present Myocardial infarct finding no longer present Electronically Signed On 05-19-2023 10:52:17 CDT by Gabriela Church M.D. [id number]
[2023-05-17 13:02] LABS: Troponin 5 2HR 73.78 ng/L (0-15)
--- NOTE | 2023-05-17 13:05 | P.HP_ITS ---
Providers/Chief Complaint Primary Care Provider: Ramiro Villavicencio MD Chief Complaint: AMS History of Present Illness Jhon Marcos is a 78 year old male with history of memory deficit, plans for renal disease Friday, takes Eliquis, he was sent from the dialysis center today for confusion, there was concern for stroke CT head unremarkable, last known well time is unknown, patient is struggling with expressive aphasia however able to move his extremities, initially on arrival he was nonverbal however his mentation improved he is waking up responding to verbal stimuli able to follow commands but still not oriented. Hospital service was requested for admission. Patient still makes a little bit of urine, will start treatment for UTI patient has not allowed us to place Conteh catheter. Daughter is at the bedside. No recent chest pain, nausea, vomiting. Recurrent falls, as per the daughter patient has been experiencing recurrent falls since his bowel perforation surgery in February Code stroke was not called, NIH is 15 on admission Review of Systems 2 General: Reports: ROS unobtainable due to mental status Medications/Allergies Home Medications Medication Instructions Recorded Confirmed Last Taken Type atorvastatin 40 mg tablet 40 mg PO DAILY@2100 11/22/19 05/17/23 05/16/23 History bupropion HCl 150 mg 24 hr tablet, 150 mg PO DAILY@0800 11/22/19 05/17/23 05/17/23 History extended release (Wellbutrin XL) nitroglycerin 0.4 mg sublingual 0.4 mg sublingual Q5M PRN Chest 11/22/19 05/17/23 03/21/23 History tablet (Nitrostat) Pain ferrous fumarate 325 mg (106 mg 325 mg PO DAILY 04/08/22 05/17/23 05/17/23 History iron) tablet finasteride 5 mg tablet 5 mg PO DAILY 04/08/22 05/17/23 05/16/23 History albuterol sulfate 90 mcg/actuation 1 inh inhalation QID PRN shortness 11/14/22 05/17/23 03/21/23 Rx aerosol inhaler (Ventolin HFA) of breath or wheezing #8.5 grams acyclovir 200 mg capsule 200 mg PO 5XD PRN outbreaks 03/28/23 05/17/23 Unknown History calcitriol 0.25 mcg capsule See Rx Instructions .Route .COMPLEX 03/28/23 05/17/23 05/16/23 History cholecalciferol (vitamin D3) 50 100 mcg PO DAILY 03/28/23 05/17/23 05/17/23 History mcg (2,000 unit) tablet (Vitamin D3) pantoprazole 40 mg tablet,delayed 40 mg PO DAILY 03/28/23 05/17/23 05/17/23 History release amiodarone 200 mg tablet (Pacerone) 200 mg PO DAILY 30 days #30 tabs 04/18/23 05/17/23 05/17/23 Rx apixaban 5 mg tablet (Eliquis) 5 mg PO Q12H 30 days #60 tabs 04/18/23 05/17/23 05/16/23 Rx insulin aspart U-100 100 unit/mL See Rx Instructions .Route 04/18/23 05/17/23 05/17/23 Rx (3 mL) subcutaneous pen (Novolog .COMPLEX #15 mL FlexPen U-100 Insulin aspart) metoprolol tartrate 25 mg tablet 50 mg PO BID@0900,2100 30 days #60 04/18/23 05/17/23 05/17/23 Rx tabs alprazolam 0.25 mg tablet (Xanax) 0.25 mg PO DAILY PRN Anxiety 05/01/23 05/17/23 04/30/23 History aspirin 81 mg tablet,delayed 81 mg PO DAILY 05/01/23 05/17/23 05/17/23 History release citalopram 30 mg capsule 30 mg PO DAILY 05/01/23 05/17/23 05/17/23 History cyanocobalamin (vitamin B-12) 1,000 mcg SUBCUT DAILY 05/01/23 05/17/23 05/02/23 History 1,000 mcg/mL injection solution magnesium hydroxide 400 mg/5 mL 30 ml PO DAILY PRN Constipation 05/01/23 05/17/23 Unknown History oral suspension (Milk of Magnesia) sodium phosphates 19 gram-7 118 ml [place] DAILY PRN Constipation 05/01/23 05/17/23 Unknown History gram/118 mL enema (Fleet Enema) alprazolam 0.25 mg tablet 0.25 mg PO DAILY PRN Anxiety 05/17/23 05/17/23 05/11/23 History bisacodyl 10 mg rectal suppository 10 mg [place] DAILY PRN Constipation 05/17/23 05/17/23 Unknown History quetiapine 25 mg tablet (Seroquel) 25 mg PO BEDTIME 05/17/23 05/17/23 05/16/23 History Allergies Allergy/AdvReac Type Severity Reaction Status Date / Time Penicillins Allergy Unknown Unknown Verified 05/09/23 10:39 PFSH Acute PFSH: Medical History ASHD (arteriosclerotic heart disease) BPH (benign prostatic hyperplasia) Diabetes 1.5, managed as type 2 History of stroke HTN (hypertension) Hyperlipidemia Myocardial infarct Surgical History H/O esophagogastroduodenoscopy (09/26/20) History of colonoscopy (09/26/20) History of knee replacement (~2014) History of shoulder replacement S/P knee replacement S/P PTCA (percutaneous transluminal coronary angioplasty) S/P shoulder replacement Family History Mother Dementia Denies family history of Family history of premature coronary artery disease Social History Smoking and tobacco/nicotine status: former use of tobacco/nicotine Quit status (tobacco/nicotine): has quit using Year quit tobacco: 1971 Former quit date comment: 2ppd x 10 years Alcohol intake: never Household members: spouse Marital status: service: No Current occupational status: retired Vitals/I&O/Wt Last Vital Signs Pulse 93 05/17/23 11:37 Resp 16 05/17/23 11:37 BP 142/98 05/17/23 10:46 Pulse Ox 98 05/17/23 11:37 O2 Del Method Nasal Cannula 05/17/23 11:37 O2 Flow Rate 2 05/17/23 11:37 Physical Exam Narrative: Patient is moving his extremities Able to follow commands Right forehead bruise improving S1, S2 Abdomen soft Lower extremity with edema Confused not oriented to time place or person Expressive aphasia Looks dehydrated Right-sided catheter in place Data 05/17/23 10:37 05/17/23 10:37 A&P Assessment and plan (1) Right leg DVT: (2) Iliac DVT (deep venous thrombosis): (3) Pleural effusion, left: (4) Systolic CHF: (5) CHRISTY (obstructive sleep apnea): (6) Eosinophilic asthma: (7) End stage renal disease: (8) Expressive aphasia: (9) Metabolic encephalopathy: Plan Expressive aphasia Metabolic encephalopathy Rule out UTI will give empirical antibiotic coverage We will request MRI on Friday Request PT OT ST Will consult nephrology for dialysis He gets Friday Currently afebrile heart rate is normal considering recurrent falls is not an ideal candidate for Eliquis long-term anticoagulation At long term he does not use oxygen currentlyOn room air doing well 94% Patient is full code Renal diet once he is able to swallow DVT prophylaxis will be added Patient is diabetic Recurrent falls check B12 level Attestations Medical Necessity Statement*: Continue medical management Diagnoses Right leg DVT I82.401 Iliac DVT (deep venous thrombosis) I82.429 Pleural effusion, left J90 Systolic CHF I50.20 CHRISTY (obstructive sleep apnea) G47.33 Eosinophilic asthma J82.83 End stage renal disease N18.6 Expressive aphasia R47.01 Metabolic encephalopathy G93.41
--- NOTE | 2023-05-17 13:41 | P.CONIM_ITS ---
Providers/Reason For Consult Consulting Physician/Specialty*: Smita Cho D.O., telenephrology Reason for Consult*: ESRD Primary Care Provider: Ramiro Villavicencio MD History of Present Illness History of Present Illness Jhon Marcos is a 78 year old male was sent to ER today from dialysis for altered mental status. He did not receive HD. He fell in [facility] a couple of days ago and hip head. Review of Systems General: Reports: ROS unobtainable due to medical condition Medications/Allergies Home Medications Medication Instructions Recorded Confirmed Last Taken Type atorvastatin 40 mg tablet 40 mg PO DAILY@2100 11/22/19 05/17/23 05/16/23 History bupropion HCl 150 mg 24 hr tablet, 150 mg PO DAILY@0800 11/22/19 05/17/23 05/17/23 History extended release (Wellbutrin XL) nitroglycerin 0.4 mg sublingual 0.4 mg sublingual Q5M PRN Chest 11/22/19 05/17/23 03/21/23 History tablet (Nitrostat) Pain ferrous fumarate 325 mg (106 mg 325 mg PO DAILY 04/08/22 05/17/23 05/17/23 History iron) tablet finasteride 5 mg tablet 5 mg PO DAILY 04/08/22 05/17/23 05/16/23 History albuterol sulfate 90 mcg/actuation 1 inh inhalation QID PRN shortness 11/14/22 05/17/23 03/21/23 Rx aerosol inhaler (Ventolin HFA) of breath or wheezing #8.5 grams acyclovir 200 mg capsule 200 mg PO 5XD PRN outbreaks 03/28/23 05/17/23 Unknown History calcitriol 0.25 mcg capsule See Rx Instructions .Route .COMPLEX 03/28/23 05/17/23 05/16/23 History cholecalciferol (vitamin D3) 50 100 mcg PO DAILY 03/28/23 05/17/23 05/17/23 History mcg (2,000 unit) tablet (Vitamin D3) pantoprazole 40 mg tablet,delayed 40 mg PO DAILY 03/28/23 05/17/23 05/17/23 Hist ory release amiodarone 200 mg tablet (Pacerone) 200 mg PO DAILY 30 days #30 tabs 04/18/2305/17/23 Rx apixaban 5 mg tablet (Eliquis) 5 mg PO Q12H 30 days #60 tabs 04/18/23 05/17/23 05/16/23 Rx insulin aspart U-100 100 unit/mL See Rx Instructions .Route 04/18/23 05/17/23 05/17/23 Rx (3 mL) subcutaneous pen (Novolog .COMPLEX #15 mL FlexPen U-100 Insulin aspart) metoprolol tartrate 25 mg tablet 50 mg PO BID@0900,2100 30 days #60 04/18/23 05/17/23 05/17/23 Rx tabs alprazolam 0.25 mg tablet (Xanax) 0.25 mg PO DAILY PRN Anxiety 05/01/23 05/17/23 04/30/23 History aspirin 81 mg tablet,delayed 81 mg PO DAILY 05/01/23 05/17/23 05/17/23 History release citalopram 30 mg capsule 30 mg PO DAILY 05/01/23 05/17/23 05/17/23 History cyanocobalamin (vitamin B-12) 1,000 mcg SUBCUT DAILY 05/01/23 05/17/23 05/02/23 History 1,000 mcg/mL injection solution magnesium hydroxide 400 mg/5 mL 30 ml PO DAILY PRN Constipation 05/01/23 05/17/23 Unknown History oral suspension (Milk of Magnesia) sodium phosphates 19 gram-7 118 ml [place] DAILY PRN Constipation 05/01/23 05/17/23 Unknown History gram/118 mL enema (Fleet Enema) alprazolam 0.25 mg tablet 0.25 mg PO DAILY PRN Anxiety 05/17/23 05/17/23 05/11/23 History bisacodyl 10 mg rectal suppository 10 mg [place] DAILY PRN Constipation 05/17/23 05/17/23 Unknown History quetiapine 25 mg tablet (Seroquel) 25 mg PO BEDTIME 05/17/23 05/17/23 05/16/23 History Allergies Allergy/AdvReac Type Severity Reaction Status Date / Time Penicillins Allergy Unknown Unknown Verified 05/09/23 10:39 Current Medications Generic Name Dose Route Start Last Admin Trade Name Freq PRN Reason Stop Dose Admin Potassium Chloride 100 mls @ 50 mls/hr 05/17/23 12:00 05/17/23 12:05 K-Kang Premix IV 05/17/23 13:59 50 mls/hr ONCE ONE Administration PFSH Acute PFSH: Medical History ASHD (arteriosclerotic heart disease) BPH (benign prostatic hyperplasia) Diabetes 1.5, managed as type 2 History of stroke HTN (hypertension) Hyperlipidemia Myocardial infarct Surgical History H/O esophagogastroduodenoscopy (09/26/20) History of colonoscopy (09/26/20) History of knee replacement (~2014) History of shoulder replacement S/P knee replacement S/P PTCA (percutaneous transluminal coronary angioplasty) S/P shoulder replacement Family History Mother Dementia Denies family history of Family history of premature coronary artery disease Social History Smoking and tobacco/nicotine status: former use of tobacco/nicotine Quit status (tobacco/nicotine): has quit using Year quit tobacco: 1971 Former quit date comment: 2ppd x 10 years Alcohol intake: never Household members: spouse Marital status: service: No Current occupational status: retired Vitals/I&O/Wt Last Vital Signs Pulse 93 05/17/23 11:37 Resp 16 05/17/23 11:37 BP 142/98 05/17/23 10:46 Pulse Ox 98 05/17/23 11:37 O2 Del Method Nasal Cannula 05/17/23 11:37 O2 Flow Rate 2 05/17/23 11:37 Physical Exam Const: OTHER: lethargic, opens eyes, does not answer questions Neck/C-Spine: OTHER: tunneled right IJ dialysis catheter, per RN no redness or drainage Extremity: NARRATIVE EXTREMITY EXAM: no edema Data 05/17/23 10:37 05/17/23 10:37 CT Head: Radiologist's impression: no acute findings Other data: seen via telemedicine with assistance of RN at bedside presumed consent for telemedicine and continuation of dialysis A&P Assessment and plan (1) End stage renal disease: Plan 1. ESRD 2. Altered mental status 3. Anemia 4. Hypokalemia, received IV replacement in ER Plan: HD today, 3.5h, 1500 ml UF, 3K bath. Next scheduled HD Friday05/20/23 Consult Attestations Medical Necessity Statement: see above Time Spent in Patient Care: 16 - 35 minutes Coding Level of Care Code Acute Code for Chg Fwd Diagnoses End stage renal disease N18.6
--- NOTE | 2023-05-17 15:21 | PC.HD ---
Due to patient's recent fall and bumping his head, corrosion control specialist requested this RN to hold the pre dialysis and maintenance heparin during treatment. No heparin will be administered during the treatment.
[2023-05-17 19:45] LABS: Thyroid Stimulating Hormone 3.97 uIU/mL (0.27-4.20); Vitamin B12 291 pg/mL (232-1245)
[2023-05-17 21:20] LABS: Estmated Average Glucose 103; Hemoglobin A1C 5.2 % (4.0-6.0)
[2023-05-17] MEDS: metoprolol tartrate 25 mg Tablet 50 MG PO (22:16)
[2023-05-17] MEDS: atorvastatin 40 mg Tablet PO (22:16)
[2023-05-17] MEDS: quetiapine 25 mg Tablet PO (22:17)
[2023-05-17] MEDS: heparin 5,000 unit/mL INJ 1 mL 5000 UNIT SUBCUT (22:17)
[2023-05-18] VITALS (14 sets, daily range): BP systolic 126–167; BP diastolic 76–96; PULSE 68–83; RESP 16–19; TEMP 36.4–36.9; O2SAT 90–100
[2023-05-18 01:23] LABS: Troponin 5 6HR 84.13 ng/L (0-15)
[2023-05-18 01:39] LABS: Hepatitis C Virus Antibody Non-Reactive (Nonreactive)
[2023-05-18 01:40] LABS: Hepatitis B Surface Antigen Non-Reactive (Nonreactive)
[2023-05-18 05:48] LABS: Basophils % 0.4 %; Eosinophils # 0.2 10^3/uL (0.0-0.8); Eosinophils % 2.5 %; Hematocrit 35.1 % (37-53); Lymphocytes # 1.7 10^3/uL (0.8-4.8); Lymphocytes % 19.9 %; Mean Corpuscular HGB Conc 29.6 g/dL (30-55); Mean Corpuscular Hemoglobin 29.6 pg (27-33); Mean Platelet Volume 9.2 fL (7.4-10.4); Monocytes # 0.8 10^3/uL (0.2-0.9); Monocytes % 9.7 %; Neutrophils # 5.66 10^3/uL (1.8-7.7); Neutrophils % 67.1 %; Nucleated Red Blood Cells % 0 %; Platelet Count 368 10^3/cmm (157-399); Red Blood Count 3.51 10^6/uL (3.85-5.65); Red Cell Distribution Width 17.3 % (12.1-15.1); White Blood Count 8.43 10^3/uL (3.29-11.43)
[2023-05-18 06:10] LABS: Blood Urea Nitrogen 5 mg/dL (8-23); Calcium 9.4 mg/dL (8.5-10.5); Carbon Dioxide 26 mmol/L (22-29); Chloride 98 mmol/L (98-107); Glucose 83 mg/dL (65-115); Magnesium 2.2 mg/dL (1.7-2.3); Osmolality Calculated 282 mOsm/kg (285-295); Sodium 138 mmol/L (136-145)
[2023-05-18] MEDS: amiodarone 200 mg Tablet PO (08:19)
[2023-05-18] MEDS: aspirin 81 mg EC Tablet PO (08:19)
[2023-05-18] MEDS: sennosides-docusate Tablet 1 TAB PO (08:19)
[2023-05-18] MEDS: finasteride 5 mg Tablet PO (08:19)
[2023-05-18] MEDS: metoprolol tartrate 25 mg Tablet 50 MG PO ×2 (08:19→21:24)
[2023-05-18] MEDS: cyanocobalamin 1,000 mcg/mL SDV 1000 MCG SUBCUT (08:19)
[2023-05-18] MEDS: heparin 5,000 unit/mL INJ 1 mL 5000 UNIT SUBCUT ×2 (08:20→21:24)
[2023-05-18] MEDS: cefTRIAXone 1,000 MG in sodium chloride 0.9% (plus) 50 ML 100 MG IV (08:20)
[2023-05-18 11:26] LABS: Glucose Point of Care 129 mg/dL (70-110)
--- NOTE | 2023-05-18 11:46 | PM.PN ---
Subjective Subjective: feels better today, more alert, does not recall many events from last couple of days Vitals/I&O/Wt Last Vital Signs Temp 98.4 F 05/18/23 08:14 Pulse 83 05/18/23 08:14 Resp 18 05/18/23 08:14 BP 167/96 05/18/23 08:14 Pulse Ox 97 05/18/23 08:14 O2 Del Method Room Air 05/18/23 08:14 O2 Flow Rate 2 05/17/23 11:37 FiO2 30 05/18/23 04:59 05/17/23 05/18/23 05/18/23 22:59 06:59 14:59 Intake Total 400 / 400 530 / 530 Output Total 1800 / 1800 Balance -1400 / -1400 530 / 530 Weight last 48 hrs Weight 88 kg Weight 90.3 kg Physical Exam Const: COMMON NORMALS: no acute distress and alert Neck/C-Spine: OTHER: tunneled right IJ HD catheter Extremity: COMMON NORMALS: no pedal edema Neuro: SENSORIUM/ORIENTATION: Yes alert Data 05/18/23 05:28 05/18/23 05:28 Other data: seen via telemedicine with assistance of RN at bedside A&P Assessment and plan (1) End stage renal disease: Plan 1. ESRD 2. Altered mental status 3. Anemia, Hb stable 4. Hypokalemia, resolved Plan: HD //S. Next scheduled HD Friday05/20/23 Attestations Medical Necessity Statement*: per primary service Time Spent in Patient Care: 16 - 35 minutes Coding Level of Care Code Acute Code for Chg Fwd Diagnoses End stage renal disease N18.6
--- NOTE | 2023-05-18 15:19 | PM.PN ---
Subjective Subjective: States that he is feeling a lot better. Worked with therapy some this morning. Denies other problems today. Medications: Reviewed: Yes Vitals/I&O/Wt Last Vital Signs Temp 97.7 F 05/18/23 12:45 Pulse 77 05/18/23 12:45 Resp 18 05/18/23 12:45 BP 136/87 05/18/23 12:45 Pulse Ox 98 05/18/23 12:45 O2 Del Method Room Air 05/18/23 12:45 O2 Flow Rate 2 05/17/23 11:37 FiO2 30 05/18/23 04:59 05/18/23 05/18/23 05/18/23 06:59 14:59 22:59 Intake Total 1010 / 1010 Balance 1010 / 1010 Weight last 48 hrs Weight 194 lb 0.108 oz Weight 199 lb 1.239 oz Physical Exam Narrative: General: Cooperative patient in no apparent distress. Well developed. HEENT: Normocephalic, Atraumatic. External ears normal. Nasal passages patent without drainage. MMM. Heart: RRR. Resp: LCTA. No respiratory distress, no use of accessory muscles. Abd: Soft, non-tender. Non-distended. Extremities: No edema. Skin: No rash or lesions on exposed areas. Neuro:Alert and oriented x 4. No focal motor or sensory loss. Speech is clear and fluent. Data 05/18/23 05:28 05/18/23 05:28 A&P Assessment and plan (1) Right leg DVT: (2) Iliac DVT (deep venous thrombosis): (3) Pleural effusion, left: (4) Systolic CHF: (5) CHRISTY (obstructive sleep apnea): (6) Eosinophilic asthma: (7) End stage renal disease: (8) Expressive aphasia: (9) Metabolic encephalopathy: Plan 78 y/o M admitted for AMS, Aphasia, encephalopathy. Continue inpatient management. Symptoms have improved. He is speaking clearly. A/O x 4. No focal motor for sensory changes. Continue Rocephin for possible UTI. BCx currently negative. Will order MRI for tomorrow to eval for TIA/CVA. Nephrology consulted for dialysis. Continue therapies. Will advance diet as he is tolerating thickened liquids well and was able to take all medications, Renal diet. Sugars have been well controlled. A1c was 5.2 Continue home medications for other chronic illnesses. Code Status: Full IVF: NS DVT PPx: heparin GI PPx: none ABx: Rocephin Diet: Renal Discharge plan: SNF when stable. Attestations Medical Necessity Statement*: Continue medical management Coding Level of Care Code Acute Code for Chg Fwd Moderate MDM includes number and complexity of problems actively addressed during encounter, amount and/or complexity of data reviewed/ordered and described risk of complication, morbidity or mortality of management as documented Diagnoses Right leg DVT I82.401 Iliac DVT (deep venous thrombosis) I82.429 Pleural effusion, left J90 Systolic CHF I50.20 CHRISTY (obstructive sleep apnea) G47.33 Eosinophilic asthma J82.83 End stage renal disease N18.6 Expressive aphasia R47.01 Metabolic encephalopathy G93.41
--- NOTE | 2023-05-18 15:28 | MRR_ITS ---
PROCEDURE INFORMATION: Exam: MR Head Without Contrast Exam date and time: 05/18/2023 4:14 PM Age: 78 years old Clinical indication: Altered mental status/memory loss; Confusion or disorientation; Additional info: TIA, encephalopathy TECHNIQUE: Imaging protocol: Magnetic resonance imaging of the head without contrast. COMPARISON: CT head thrombolytic [id number] 05/17/2023 10:51 AM FINDINGS: Brain: Moderate diffuse cortical volume loss. Moderate increased T2 FLAIR signal in supratentorial white matter, consistent with microangiopathy. No diffusion restriction. No intracranial hemorrhage. Cerebral ventricles: Normal. No ventriculomegaly. Bones/joints: Unremarkable. Paranasal sinuses: Normal as visualized. No acute sinusitis. Mastoid air cells: Small left mastoid effusion. The right mastoid is clear. Orbital cavities: Unremarkable. Vasculature: Normal intracranial arterial and venous flow voids. Soft tissues: Unremarkable. MR/MR head wo con* [id number] IMPRESSION: 1. No acute intracranial abnormality. 2. Moderate microangiopathy.
[2023-05-18 17:17] LABS: Glucose Point of Care 98 mg/dL (70-110)
--- NOTE | 2023-05-18 20:17 | PC.NURSE ---
1 episode of bladder incontinence
[2023-05-18 21:00] LABS: Glucose Point of Care 165 mg/dL (70-110)
[2023-05-18] MEDS: atorvastatin 40 mg Tablet PO (21:24)
[2023-05-18] MEDS: quetiapine 25 mg Tablet PO (21:24)
[2023-05-19] VITALS (10 sets, daily range): BP systolic 120–166; BP diastolic 66–93; PULSE 67–82; RESP 15–19; TEMP 36.6–36.9; O2SAT 94–99
[2023-05-19 05:52] LABS: Basophils % 0.3 %; Eosinophils # 0.2 10^3/uL (0.0-0.8); Eosinophils % 2.4 %; Hematocrit 33.5 % (37-53); Lymphocytes # 2.2 10^3/uL (0.8-4.8); Lymphocytes % 29.7 %; Mean Corpuscular HGB Conc 30.1 g/dL (30-55); Mean Corpuscular Hemoglobin 29.4 pg (27-33); Mean Corpuscular Volume 97.7 fl (82-101); Mean Platelet Volume 8.9 fL (7.4-10.4); Monocytes # 0.8 10^3/uL (0.2-0.9); Monocytes % 10.2 %; Neutrophils # 4.29 10^3/uL (1.8-7.7); Neutrophils % 56.9 %; Nucleated Red Blood Cells % 0 %; Platelet Count 328 10^3/cmm (157-399); Red Blood Count 3.43 10^6/uL (3.85-5.65); Red Cell Distribution Width 16.7 % (12.1-15.1); White Blood Count 7.54 10^3/uL (3.29-11.43)
[2023-05-19 06:13] LABS: Alanine Aminotransferase 7 U/L (0-41); Alkaline Phosphatase 100 U/L (40-130); Anion Gap 12.7 (5-19); Aspartate Amino Transferase 12 U/L (0-40); Blood Urea Nitrogen 15 mg/dL (8-23); Calcium 9.1 mg/dL (8.5-10.5); Carbon Dioxide 27 mmol/L (22-29); Chloride 100 mmol/L (98-107); Globulin 3.3 g/dL (1.3-4.6); Glucose 87 mg/dL (65-115); Osmolality Calculated 282 mOsm/kg (285-295); Phosphorus 2.3 mg/dL (2.5-4.5); Potassium 3.7 mmol/L (3.5-5.1); Sodium 136 mmol/L (136-145); Total Bilirubin 0.6 mg/dL (0.15-1.2); Total Protein 6.3 g/dL (6.6-8.7)
[2023-05-19 06:38] LABS: Glucose Point of Care 90 mg/dL (70-110)
[2023-05-19] MEDS: metoprolol tartrate 25 mg Tablet 50 MG PO ×2 (08:27→20:53)
[2023-05-19] MEDS: aspirin 81 mg EC Tablet PO (08:27)
[2023-05-19] MEDS: amiodarone 200 mg Tablet PO (08:27)
[2023-05-19] MEDS: cyanocobalamin 1,000 mcg/mL SDV 1000 MCG SUBCUT (08:27)
[2023-05-19] MEDS: calcitriol 0.25 mcg Capsule PO (08:27)
[2023-05-19] MEDS: heparin 5,000 unit/mL INJ 1 mL 5000 UNIT SUBCUT ×2 (08:27→20:53)
[2023-05-19] MEDS: finasteride 5 mg Tablet PO (08:27)
[2023-05-19] MEDS: sennosides-docusate Tablet 1 TAB PO (08:27)
[2023-05-19] MEDS: cefTRIAXone 1,000 MG in sodium chloride 0.9% (plus) 50 ML 100 MG IV (08:28)
--- NOTE | 2023-05-19 11:28 | PM.PN ---
Subjective Subjective: feels better, anxious for discharge denies headache Vitals/I&O/Wt Last Vital Signs Temp 98.5 F 05/19/23 08:00 Pulse 78 05/19/23 08:00 Resp 16 05/19/23 08:00 BP 142/89 05/19/23 08:00 Pulse Ox 99 05/19/23 08:00 O2 Del Method Room Air 05/19/23 07:50 O2 Flow Rate 2 05/17/23 11:37 FiO2 30 05/18/23 04:59 05/18/23 05/19/23 05/19/23 22:59 06:59 14:59 Intake Total 240 / 1250 290 / 290 Output Total 100 / 100 Balance 240 / 1250 -100 / 1150 290 / 290 Weight last 48 hrs Weight 88 kg Weight 90.3 kg Physical Exam Const: COMMON NORMALS: no acute distress and alert Neuro: SENSORIUM/ORIENTATION: Yes alert Data 05/19/23 05:27 05/19/23 05:27 Other data: seen via telemedicine with assistance of RN at bedside A&P Assessment and plan (1) End stage renal disease: Plan 1. ESRD 2. Altered mental status after fall, improved 3. Anemia, Hb stable 4. Hypokalemia, resolved Plan: HD //S. Next scheduled HD Friday05/20/23 Attestations Medical Necessity Statement*: per primary service Time Spent in Patient Care: 16 - 35 minutes Coding Level of Care Code Acute Code for Chg Fwd Diagnoses End stage renal disease N18.6
--- NOTE | 2023-05-19 12:13 | PM.PN ---
Subjective Subjective: Awaiting transfer no Complaints no overnight events Vitals/I&O/Wt Last Vital Signs Temp 98.5 F 05/19/23 08:00 Pulse 78 05/19/23 08:00 Resp 16 05/19/23 08:00 BP 142/89 05/19/23 08:00 Pulse Ox 99 05/19/23 08:00 O2 Del Method Room Air 05/19/23 07:50 O2 Flow Rate 2 05/17/23 11:37 FiO2 30 05/18/23 04:59 05/18/23 05/19/23 05/19/23 22:59 06:59 14:59 Intake Total 240 / 1250 290 / 290 Output Total 100 / 100 Balance 240 / 1250 -100 / 1150 290 / 290 Weight last 48 hrs Weight 88 kg Weight 90.3 kg Physical Exam Narrative: AWake and alert GCS 15 Currently on room air Abdomen soft No signs of focal deficit No expressive aphasia S1, S2 Data 05/19/23 05:27 05/19/23 05:27 A&P Assessment and plan (1) AMS (altered mental status): (2) Renal failure (ARF), acute on chronic: (3) Metabolic encephalopathy: (4) Expressive aphasia: (5) End stage renal disease: Plan Continue ceftriaxone for possible UTI Patient is awake and alert Mentation improved Plan to send him back to [facility] Doing well remarkably Patient will get dialyzed as scheduled Plan to discharge him tomorrow Full code Semisolid stools, to rule out C. difficile we should do it once he experiences 3 loose stools Attestations Medical Necessity Statement*: Discharge tomorrow Diagnoses AMS (altered mental status) R41.82 Renal failure (ARF), acute on chronic N17.9; N18.9 Metabolic encephalopathy G93.41 Expressive aphasia R47.01 End stage renal disease N18.6
[2023-05-19 12:42] LABS: Glucose Point of Care 167 mg/dL (70-110)
[2023-05-19 17:00] LABS: Glucose Point of Care 100 mg/dL (70-110)
--- NOTE | 2023-05-19 20:14 | CTR_ITS ---
PROCEDURE INFORMATION: Exam: CT Head Without Contrast Exam date and time: 05/19/2023 10:39 PM Age: 78 years old Clinical indication: Injury or trauma; Fall; Blunt trauma (contusions or hematomas); Consciousness not specified TECHNIQUE: Imaging protocol: Computed tomography of the head without contrast. Radiation optimization: All CT scans at this facility use at least one of these dose optimization techniques: automated exposure control; mA and/or kV adjustment per patient size (includes targeted exams where dose is matched to clinical indication); or iterative reconstruction. REPORTING DATA: Count of CT and Cardiac NM exams in prior 12 months: This patient has received 9 known CTs and 0 known cardiac nuclear medicine studies in the 12 months prior to the current study. COMPARISON: 1. MR head wo con* 05/18/2023 4:[address] head thrombolytic 05/17/2023 10:51 AM RADIATION DOSE METRICS: Total DLP (mGy-cm): 1093.48 FINDINGS: Brain: No acute intracranial hemorrhage, acute large territory infarct, or obvious mass lesion. Age appropriate diffuse cerebral volume loss. Chronic white matter changes, likely to be chronic small vessel ischemic changes. Cerebral ventricles: No ventriculomegaly. Paranasal sinuses: Visualized sinuses are unremarkable. No fluid levels. Mastoid air cells: Visualized mastoid air cells are well aerated. Bones/joints: Unremarkable. No acute fracture. Soft tissues: Unremarkable. CT/CT head wo con* [id number] IMPRESSION: No acute intracranial abnormality.
[2023-05-19 20:45] LABS: Glucose Point of Care 131 mg/dL (70-110)
[2023-05-19] MEDS: quetiapine 25 mg Tablet PO (20:53)
[2023-05-19] MEDS: atorvastatin 40 mg Tablet PO (20:53)
--- NOTE | 2023-05-19 22:10 | PC.NURSE ---
@1940 nurse called into pt room, pt laying on the floor, pillow under head, per staff and pt, pt fell backwards hit head on trash can, and scraped back, PERRLA sluggish in response as was his baseline, no redness or tenderness, or raised are to head noted, abrasion to right posterior shoulder blade, redness to left posterior ribcage, AROM to all extremities, denying pain, assisted to sitting then standing position, verbalized dizziness upon standing, reminded that pt needs to change position slowly, assisted ambulating to bathroom with 2 staff and use of walker, no other new injuries noted. VS 175/91, 80, 20, 99%, Dr. Jessica notified and order for head CT ordered
[2023-05-20 03:49] VITALS: BP 168/90; PULSE 83; RESP 19; TEMP 37; O2SAT 98
[2023-05-20 05:28] VITALS: PULSE 74
[2023-05-20 06:59] LABS: Glucose Point of Care 126 mg/dL (70-110)
[2023-05-20 07:41] VITALS: BP 134/85; PULSE 79; RESP 17; TEMP 36.6; O2SAT 98
[2023-05-20 08:24] VITALS: BP 171/89; PULSE 80; RESP 16; TEMP 36.5
--- NOTE | 2023-05-20 08:25 | PC.SOCIAL ---
IMM Update pg 2 of IMM not updated @ this time as patient is currently in observation status.
[2023-05-20 11:27] LABS: Glucose Point of Care 94 mg/dL (70-110)
--- NOTE | 2023-05-20 11:29 | PM.PN ---
Subjective Subjective: seen during dialysis, feels well Vitals/I&O/Wt Last Vital Signs Temp 97.7 F 05/20/23 08:24 Pulse 80 05/20/23 08:24 Resp 16 05/20/23 08:24 BP 171/89 05/20/23 08:24 Pulse Ox 98 05/20/23 07:41 O2 Del Method Room Air 05/19/23 19:10 O2 Flow Rate 2 05/17/23 11:37 FiO2 30 05/18/23 04:59 05/19/23 05/20/23 05/20/23 22:59 06:59 14:59 Intake Total 240 / 770 Balance 240 / 770 Physical Exam Const: COMMON NORMALS: no acute distress and alert Neuro: SENSORIUM/ORIENTATION: Yes alert Data 05/19/23 05:27 05/19/23 05:27 Other data: via telemedicine with assistance of RN at chairside A&P Assessment and plan (1) End stage renal disease: Plan 1. ESRD 2. Altered mental status after fall, improved 3. Anemia, Hb stable 4. Hypokalemia, resolved Plan: continue HD //S. Next scheduled HD 05/22/23 Attestations Medical Necessity Statement*: per primary service Time Spent in Patient Care: 16 - 35 minutes Coding Level of Care Code Acute Code for Chg Fwd Diagnoses End stage renal disease N18.6
--- NOTE | 2023-05-20 11:48 | PM.PN ---
Subjective Subjective: Going for dialysis today Awaiting authorization Patient is ready to be discharged Overnight events noted CT head unremarkable Vitals/I&O/Wt Last Vital Signs Temp 97.7 F 05/20/23 08:24 Pulse 80 05/20/23 08:24 Resp 16 05/20/23 08:24 BP 171/89 05/20/23 08:24 Pulse Ox 98 05/20/23 07:41 O2 Del Method Room Air 05/19/23 19:10 O2 Flow Rate 2 05/17/23 11:37 FiO2 30 05/18/23 04:59 05/19/23 05/20/23 05/20/23 22:59 06:59 14:59 Intake Total 240 / 770 Balance 240 / 770 Physical Exam Narrative: Awake and alert GCS 15 Nonfocal neuro exam Pleasant and cooperative Euvolemic Currently on room air Blood pressure stable Data 05/19/23 05:27 05/19/23 05:27 A&P Assessment and plan (1) AMS (altered mental status): (2) Renal failure (ARF), acute on chronic: (3) Metabolic encephalopathy: (4) Expressive aphasia: (5) End stage renal disease: Plan Awaiting placement Continue antibiotics for possible UTI Patient fell last night when he was trying to go to the bathroom CT head unremarkable NIH 0 His fall could be related to peripheral neuropathy due to B12 deficiency, B12 was low normal start B12 intramuscular injection TSH normal I will discharge him once he got accepted Full code Renal diet Attestations Medical Necessity Statement*: Discharge later today versus tomorrow Diagnoses AMS (altered mental status) R41.82 Renal failure (ARF), acute on chronic N17.9; N18.9 Metabolic encephalopathy G93.41 Expressive aphasia R47.01 End stage renal disease N18.6
[2023-05-20] MEDS: metoprolol tartrate 25 mg Tablet 50 MG PO (11:58)
[2023-05-20] MEDS: aspirin 81 mg EC Tablet PO (11:59)
[2023-05-20] MEDS: sennosides-docusate Tablet 1 TAB PO (11:59)
[2023-05-20] MEDS: amiodarone 200 mg Tablet PO (11:59)
[2023-05-20] MEDS: cyanocobalamin 1,000 mcg/mL SDV 1000 MCG SUBCUT (11:59)
[2023-05-20] MEDS: finasteride 5 mg Tablet PO (11:59)
[2023-05-20] MEDS: heparin 5,000 unit/mL INJ 1 mL 5000 UNIT SUBCUT (12:00)
[2023-05-20] MEDS: cefTRIAXone 1,000 MG in sodium chloride 0.9% (plus) 50 ML 100 MG IV (12:01)
[2023-05-20 12:03] VITALS: BP 155/88; PULSE 91; RESP 16; TEMP 36.8
--- NOTE | 2023-05-20 12:50 | PM.DCS ---
Discharge Providers Date of Admission: 05/17/23 16:57 Date of Discharge: May 19, 2023 Attending Provider at Admission: Olive Tracey MD Attending Provider at Discharge: Olive Tracey MD Primary Care Provider: Ramiro Villavicencio MD Diagnoses at Discharge Discharge Diagnosis (1) End stage renal disease: Status: Acute Reason for Visit Reason for Visit: AMS Hospital Course Hospital Course 78-year-old pleasant male who was admitted for management valuation of metabolic encephalopathy, expressive aphasia, there was concern for stroke related changes, MRI head was unremarkable for acute infarct, please note we give him empirical antibiotic coverage for possible UTI which improved his mentation, however he does make little bit of urine, I would continue antibiotics at the time of discharge, he will go back to [facility], cultures negative, afebrile, he is dialysis dependent nephrology was consulted and he got dialyzed for his fluid overloaded state. As per the patient sometimes he only goes twice a week which might not be adequate at this point he should definitely go for 3 times a week dialysis sessions. At the time of discharge he is hemodynamically stable pleasant and cooperative Not requiring oxygen No expressive aphasia at all Will add Vit b12 supplement for peripheral neuropathy Physical Exam Narrative: Awake and alert GCS 15 Pleasant cooperative Signs of fluid load improving Abdomen soft Discharge Data Studies Completed and Pending Completed Studies During Hospitalization Category Date Time Status CT head thrombolytic [id number] Stat Cat Scan 05/17/23 10:24 Completed MR head wo con* [id number] Routine MRI 05/18/23 15:28 Completed Pending at discharge Category Date Time Status Drug Screen, Urine Stat Lab 05/17/23 10:25 Uncollected Urinalysis Stat Lab 05/17/23 10:25 Uncollected Radiology Impressions Head CT 05/17/23 10:24 IMPRESSION: No acute intracranial abnormality. ASSESSMENT: ASPECTS ([facility] Stroke Program Early CT Score) is 10. Head MRI 05/18/23 15:28 IMPRESSION: 1. No acute intracranial abnormality. 2. Moderate microangiopathy. Laboratory Results WBC 7.54 10^3/uL (3.29-11.43) 05/19/23 05:27 RBC 3.43 10^6/uL (3.85-5.65) L 05/19/23 05:27 Hgb 10.10 g/dL (11.27-16.99) L 05/19/23 05:27 Hct 33.5 % (37-53) L 05/19/23 05:27 MCV 97.7 fl (82-101) 05/19/23 05:27 MCH 29.4 pg (27-33) 05/19/23 05:27 MCHC 30.1 g/dL (30-55) 05/19/23 05:27 RDW 16.7 % (12.1-15.1) H 05/19/23 05:27 Plt Count 328 10^3/cmm (157-399) 05/19/23 05:27 MPV 8.9 fL (7.4-10.4) 05/19/23 05:27 Neut % (Auto) 56.9 % 05/19/23 05:27 Lymph % (Auto) 29.7 % 05/19/23 05:27 [place] % (Auto) 10.2 % 05/19/23 05:27 Eos % (Auto) 2.4 % 05/19/23 05:27 Baso % (Auto) 0.3 % 05/19/23 05:27 Neut # (Auto) 4.29 10^3/uL (1.8-7.7) 05/19/23 05:27 Lymph # (Auto) 2.2 10^3/uL (0.8-4.8) 05/19/23 05:27 [place] # (Auto) 0.8 10^3/uL (0.2-0.9) 05/19/23 05:27 Eos # (Auto) 0.2 10^3/uL (0.0-0.8) 05/19/23 05:27 Baso # (Auto) 0.0 10^3/uL (0.0-0.1) 05/19/23 05:27 Nucleated RBC % (auto) 0 % 05/19/23 05:27 Nucleated RBCs # 0.0 /100WBC 05/19/23 05:27 PT 21.40 SECONDS (12.1-14.9) H 05/17/23 10:37 INR 1.78 (0.8-1.2) H 05/17/23 10:37 APTT 34.3 SECONDS (23.9-36.7) 05/17/23 10:37 Sodium 136 mmol/L (136-145) 05/19/23 05:27 Potassium 3.7 mmol/L (3.5-5.1) 05/19/23 05:27 Chloride 100 mmol/L (98-107) 05/19/23 05:27 Carbon Dioxide 27 mmol/L (22-29) 05/19/23 05:27 Anion Gap 12.7 (5-19) 05/19/23 05:27 BUN 15 mg/dL (8-23) 05/19/23 05:27 Creatinine 4.1 mg/dL (0.7-1.2) H 05/19/23 05:27 GFR Calculation Not Reportable 05/19/23 05:27 Glucose 87 mg/dL (65-115) 05/19/23 05:27 POC Glucose 90 mg/dL (70-110) 05/19/23 06:30 Estimat Average Glucose 103 05/17/23 10:37 Hemoglobin A1c 5.2 % (4.0-6.0) 05/17/23 10:37 Calculated Osmolality 282 mOsm/kg (285-295) L 05/19/23 05:27 Calcium 9.1 mg/dL (8.5-10.5) 05/19/23 05:27 Phosphorus 2.3 mg/dL (2.5-4.5) L 05/19/23 05:27 Magnesium 2.2 mg/dL (1.7-2.3) 05/18/23 05:28 Total Bilirubin 0.6 mg/dL (0.15-1.2) 05/19/23 05:27 AST 12 U/L (0-40) 05/19/23 05:27 ALT 7 U/L (0-41) 05/19/23 05:27 Alkaline Phosphatase 100 U/L (40-130) 05/19/23 05:27 Troponin T Baseline 83 ng/L (0-15) H 05/17/23 10:37 Troponin T 120 Minute 73.78 ng/L (0-15) H 05/17/23 12:41 Delta Troponin T -9.22 ABS# (0-10) L 05/17/23 12:41 Troponin T Hi Sens 6Hr 84.13 ng/L (0-15) H 05/18/23 00:31 Troponin T Hi Sens 6Hr Delta Not Reportable 05/18/23 00:31 Total Protein 6.3 g/dL (6.6-8.7) L 05/19/23 05:27 Albumin 3.0 g/dL (3.5-5.2) L 05/19/23 05:27 Globulin 3.3 g/dL (1.3-4.6) 05/19/23 05:27 Vitamin B12 291 pg/mL (232-1245) 05/17/23 12:41 TSH 3.97 uIU/mL (0.27-4.20) 05/17/23 12:41 Hep Bs Antigen Non-reactive (Nonreactive) 05/18/23 00:31 Hepatitis C Antibody Non-reactive (Nonreactive) 05/18/23 00:31 Vitals Last Vital Signs Temp 98.5 F 05/19/23 08:00 Pulse 78 05/19/23 08:00 Resp 16 05/19/23 08:00 BP 142/89 05/19/23 08:00 Pulse Ox 99 05/19/23 08:00 O2 Del Method Room Air 05/19/23 07:50 O2 Flow Rate 2 05/17/23 11:37 FiO2 30 05/18/23 04:59 Discharge Plan Discharge Patient Disposition: Xfer SNF Condition: Stable Prescriptions: New cefpodoxime 200 mg tablet 200 mg PO BID Qty: 6 0RF Rx Instructions: must administer with a meal/food mecobalamin (vitamin B12) [B12 Active] 1,000 mcg tablet,chewable 1,000 mcg PO DAILY Qty: 60 0RF Continued nitroglycerin [Nitrostat] 0.4 mg tablet, sublingual 0.4 mg SUBLINGUAL Q5M PRN (Reason: Chest Pain) atorvastatin 40 mg tablet 40 mg PO DAILY@2100 bupropion HCl [Wellbutrin XL] 150 mg tablet extended release 24 hr 150 mg PO DAILY@0800 ferrous fumarate 325 mg (106 mg iron) tablet 325 mg PO DAILY finasteride 5 mg tablet 5 mg PO DAILY albuterol sulfate [Ventolin HFA] 90 mcg/actuation HFA aerosol inhaler 1 inh inhalation QID PRN (Reason: shortness of breath or wheezing) Qty: 8.5 3RF alprazolam 0.25 mg tablet 0.25 mg PO DAILY PRN (Reason: Anxiety) bisacodyl 10 mg Suppository 10 mg IN DAILY PRN (Reason: Constipation) Seroquel 25 mg tablet 25 mg PO BEDTIME calcitriol 0.25 mcg capsule See Rx Instructions .ROUTE .COMPLEX Rx Instructions: 0.25 mcg orally 3 times weekly on Friday, Friday, Friday cholecalciferol (vitamin D3) [Vitamin D3] 50 mcg (2,000 unit) Tablet 100 mcg PO DAILY pantoprazole 40 mg tablet,delayed release (DR/EC) 40 mg PO DAILY acyclovir 200 mg capsule 200 mg PO 5XD PRN (Reason: outbreaks) amiodarone [Pacerone] 200 mg Tablet 200 mg PO DAILY 30 Days Qty: 30 0RF Eliquis 5 mg Tablet 5 mg PO Q12H 30 Days Qty: 60 0RF metoprolol tartrate 25 mg Tablet 50 mg PO BID@0900,2100 30 Days Qty: 60 0RF insulin aspart U-100 [Novolog FlexPen U-100 Insulin] 100 unit/mL (3 mL) insulin pen See Rx Instructions .ROUTE .COMPLEX Qty: 15 0RF Rx Instructions: Inject, subcut, 3 times daily, after meals, based on low-dose sliding scale. BS 141-180= 0ML, 181-220= 2ML, 221-260= 4ML, 261-300= 6ML, 301-350= 8ML, 351-400= 10ML, 401-450= 12ML, 451-500= 14ML. citalopram 30 mg Capsule 30 mg PO DAILY magnesium hydroxide [Milk of Magnesia] 400 mg/5 mL Suspension 30 ml PO DAILY PRN (Reason: Constipation) Fleet Enema 19-7 gram/118 mL Enema 118 ml IN DAILY PRN (Reason: Constipation) alprazolam [Xanax] 0.25 mg Tablet 0.25 mg PO DAILY PRN (Reason: Anxiety) cyanocobalamin (vitamin B-12) 1,000 mcg/mL Solution 1,000 mcg SUBCUT DAILY Rx Instructions: STARTING ON AND ENDING ON THE EVERY MONTH aspirin [Aspir-81] 81 mg Tablet,Delayed Release (Dr/Ec) 81 mg PO DAILY Discharge Orders: Discharge Order (Routine); Ordered 05/20/23 Ordered By: Olive Tracey Referrals: [facility] [Outside] Ramiro Villavicencio MD [Primary Care Provider] - Patient Instructions: Dialysis Diet (DC), Hemodialysis (DC), Opioid Safety Discharge Attestations Time Spent in Discharge Care*: greater than 30 min Status at Discharge: Cognitive status at discharge: cognitively intact, Quality Metrics Clinical Quality Measures [ No reported AMI, CVA or VTE this stay] Coding Level of Care Code Acute Code for Chg Fwd Diagnoses End stage renal disease N18.6
[2023-05-20 13:24] LABS: SARS Covid-2 Antigen negative (Negative)
--- NOTE | 2023-05-20 14:25 | PC.NURSE ---
Pt states that his phone is missing. No phone documented upon admission. Not found in room/pyxis. [place] states that phone is not at their facility. This nurse calls ER and Security to see if phone was turned into lost and found. Both deny having phone. Attempts to call Cricket, son, no answer. Notifies pt that phone has not been located.
--- NOTE | 2023-05-20 14:27 | PC.NURSE ---
Report called to Chuyita at [facility]. IV out. Notified pt of transfer soon.
--- NOTE | 2023-05-20 17:24 | PC.OT ---
TREATMENT HELD THIS DATE; AT FIRST ATTEMPT PATIENT WAS OUT OF HIS ROOM. PATIENT IS SCHEDULED FOR D/C TODAY.
[2023-05-20 17:30] VITALS: BP 155/88; PULSE 91; RESP 16; TEMP 36.8
== END 2023-05-20 17:00 | disposition skilled nursing facility (03) ==
LOC: ER 13:09 → MEDSURG 14:57
PROVIDERS: Family Medicine; Internal Medicine; Admitting Provider Internal Medicine; Emergency Provider Nurse Practitioner; PCP Family Medicine; Visit Provider Internal Medicine
DX: G93.41 Metabolic encephalopathy (principal); E11.22 Type 2 diabetes mellitus with diabetic chronic kidney disease; I13.0 Hypertensive heart and chronic kidney disease with heart failure and stage 1 through stage 4 chronic kidney disease, or unspecified chronic kidney disease; N18.6 End stage renal disease; D63.1 Anemia in chronic kidney disease; R41.82 Altered mental status, unspecified; N17.9 Acute kidney failure, unspecified; Z99.2 Dependence on renal dialysis; I50.20 Unspecified systolic (congestive) heart failure; R47.01 Aphasia; E87.6 Hypokalemia; I73.9 Peripheral vascular disease, unspecified; I82.401 Acute embolism and thrombosis of unspecified deep veins of right lower extremity; I82.429 Acute embolism and thrombosis of unspecified iliac vein; J90 Pleural effusion, not elsewhere classified; G47.33 Obstructive sleep apnea (adult) (pediatric); J82.83 Eosinophilic asthma; R74.01 Elevation of levels of liver transaminase levels; Z91.81 History of falling; Z79.4 Long term (current) use of insulin; Z79.82 Long term (current) use of aspirin; N40.0 Benign prostatic hyperplasia without lower urinary tract symptoms; Z87.891 Personal history of nicotine dependence; Z79.01 Long term (current) use of anticoagulants; I25.10 Atherosclerotic heart disease of native coronary artery without angina pectoris; I45.10 Unspecified right bundle-branch block; I25.2 Old myocardial infarction; Z86.73 Personal history of transient ischemic attack (TIA), and cerebral infarction without residual deficits
CPT/HCPCS: 36415; 36416; 70450; 70551; 80048; 80053; 82607; 82962; 83036; 83735; 84100; 84443; 84484; 85025; 85610; 85730; 86803; 87340; 87426; 90935; 92523; 93005; 94660; 96365; 96366; 96367; 96372; 97116; 97161; 97166; 97530; 99291; G0378; J0696; J1644; J3420; J3480; Q3014

== ENCOUNTER → 2023-05-26 08:39 | Outpatient (BNVA) | payer MEDICARE, SELFPAY | PROVIDERS: PCP Family Medicine; Visit Provider Surgery | DX: K65.1 Peritoneal abscess (principal) | CPT/HCPCS: 99214 ==

== ENCOUNTER 2023-05-29 18:26 | Inpatient (IN) | payer MEDICARE, SELFPAY ==
[2023-05-29 18:28] VITALS: BP 97/44; PULSE 77; O2SAT 97
--- NOTE | 2023-05-29 18:45 | XRR_ITS ---
PROCEDURE INFORMATION: Exam: XR Chest Exam date and time: 05/29/2023 7:18 PM Age: 78 years old Clinical indication: Cough and shortness of breath; Additional info: AMS TECHNIQUE: Imaging protocol: Radiologic exam of the chest. Views: 1 view. COMPARISON: CR XR chest 1V portable [id number] 05/01/2023 8:59 AM FINDINGS: Lungs: See Pleural spaces finding. Pleural spaces: Large left-sided pleural effusion redemonstrated. Underlying pulmonary consolidation can not be excluded. Heart/Mediastinum: Unremarkable. No cardiomegaly. Right IJ approach central venous catheter positioned with its tip in the right atrium. Bones/joints: Severe degenerative changes in the left glenohumeral joint. XR/XR chest 1V portable [id number] IMPRESSION: Large left-sided pleural effusion redemonstrated. Underlying pulmonary consolidation can not be excluded.
--- NOTE | 2023-05-29 18:45 | CTR_ITS ---
PROCEDURE INFORMATION: Exam: CT Head Without Contrast Exam date and time: 05/29/2023 7:45 PM Age: 78 years old Clinical indication: Altered mental status/memory loss; Additional info: AMS TECHNIQUE: Imaging protocol: Computed tomography of the head without contrast. Radiation optimization: All CT scans at this facility use at least one of these dose optimization techniques: automated exposure control; mA and/or kV adjustment per patient size (includes targeted exams where dose is matched to clinical indication); or iterative reconstruction. REPORTING DATA: Count of CT and Cardiac NM exams in prior 12 months: This patient has received 10 known CTs and 0 known cardiac nuclear medicine studies in the 12 months prior to the current study. COMPARISON: CT head wo con* [id number] 05/19/2023 10:39 PM RADIATION DOSE METRICS: Total DLP (mGy-cm): 1225 FINDINGS: Brain: No acute intracranial abnormality. Subcortical and periventricular white matter changes consistent with small-vessel ischemic disease in the appropriate clinical setting. Small-vessel ischemic disease. Cerebral ventricles: No ventriculomegaly. Paranasal sinuses: Visualized sinuses are unremarkable. No fluid levels. Mastoid air cells: Visualized mastoid air cells are well aerated. Bones/joints: Unremarkable. No acute fracture. Soft tissues: Unremarkable. CT/CT head wo con* [id number] IMPRESSION: 1. No acute intracranial abnormality. 2. Small-vessel ischemic disease.
--- NOTE | 2023-05-29 18:47 | ECG_ITS ---
[facility] Test Date: 2023-05-29 Pat Name: Jhon Marcos Department: Room: Gender: Male [employer]: : 1945 Requested By: Manoj Cheek Order Number: [id number] Shannan MD: Pieter Gomez M.D. Measurements Intervals Leon Rate: 70 P: 43 VT: 195 QRS: -30 QRSD: 92 T: 8 QT: 401 QTc: 434 Interpretive Statements SINUS RHYTHM LOW QRS VOLTAGE IN PRECORDIAL LEADS [QRS DEFLECTION < 1.0 mV IN CHEST LEADS] INCOMPLETE RIGHT BUNDLE BRANCH BLOCK [90+ ms QRS DURATION, TERMINAL R IN V1/V2, 40+ ms S IN I/aVL/V4/V5/V6] INFERIOR MYOCARDIAL INFARCTION , PROBABLY OLD [40+ ms Q WAVE AND/OR ST/T ABNORMALITY IN II/aVF] Compared to ECG 05/17/2023 12:29:10 Low QRS voltage now present Myocardial infarct finding now present Left-axis deviation no longer present T-wave abnormality no longer present Electronically Signed On 05-30-2023 12:30:26 CDT by Pieter Gomez M.D. [id number]
--- NOTE | 2023-05-29 18:51 | ED_ITS ---
HPI - Altered Mental Status General: Chief Complaint: Altered Mental Status Stated Complaint: ams Time Seen by Provider: 05/29/23 18:37 History of Present Illness: 78-year-old male presents from the long-term care facility via EMS personnel. Long-term care for staff advised that the patient has had increased altered mental status for the previous 1 week. He recently tested positive for COVID-19 virus and had a UTI and has refused dialysis today. Patient is very incoherent with garbled and slurred speech since 2 days ago per EMS and the long-term care staff. They state the patient is normally awake alert and oriented x3 [facility]. Review of Systems General: Reports: ROS unobtainable due to medical condition and ROS unobtainable due to mental status PFSH ED PFSH: Medical History AMS (altered mental status) ASHD (arteriosclerotic heart disease) BPH (benign prostatic hyperplasia) Diabetes 1.5, managed as type 2 End stage renal disease Eosinophilic asthma Expressive aphasia History of stroke HTN (hypertension) Hyperlipidemia Iliac DVT (deep venous thrombosis) Metabolic encephalopathy Myocardial infarct CHRISTY (obstructive sleep apnea) Pleural effusion, left Renal failure (ARF), acute on chronic Right leg DVT Systolic CHF Surgical History H/O esophagogastroduodenoscopy (09/26/20) History of colonoscopy (09/26/20) History of knee replacement (~2014) History of shoulder replacement S/P knee replacement S/P PTCA (percutaneous transluminal coronary angioplasty) S/P shoulder replacement Family History Mother Dementia Denies family history of Family history of premature coronary artery disease Social History Smoking and tobacco/nicotine status: former use of tobacco/nicotine Quit status (tobacco/nicotine): has quit using Year quit tobacco: 1971 Former quit date comment: 2ppd x 10 years Alcohol intake: never Household members: spouse Marital status: service: No Current occupational status: retired Physical Exam Const: EXAM LIMITATIONS: altered mental status GENERAL APPEARANCE: comfortable, disheveled, lethargic and frail appearing NUTRITIONAL AP PEARANCE: overweight ORIENTATION/CONSCIOUSNESS: Yes lethargic HENMT: COMMON NORMALS: normocephalic and atraumatic HEAD & SCALP: normocephalic and atraumatic Eye: COMMON NORMALS: Equal, round and reactive pupils present and EOMs intact bilaterally PUPIL: Yes Equal, round and reactive pupils present Neck/C-Spine: COMMON NORMALS: full ROM and supple Resp: EFFORT & INSPECTION: No tachypneic and No respiratory distress AUSCULTATION: rhonchi left upper and left lower Cardio: COMMON NORMALS: regular rate, regular rhythm, S1 normal heart sound present, S2 normal heart sound present and Peripheral pulses 2+ throughout RATE: regular rate RHYTHM: regular rhythm HEART SOUNDS: S1 normal heart sound present and S2 normal heart sound present PERIPHERAL PULSES: Peripheral pulses 2+ throughout GI: COMMON NORMALS: Normal to inspection, nondistended, normoactive bowel sounds present, Soft to palpation and non-tender PALPATION: Yes Soft to palpation Extremity: COMMON NORMALS: normal to inspection and capillary refill normal Neuro: SENSORIUM/ORIENTATION: Yes lethargic Psych: MOOD & AFFECT: Yes Flat affect present Course Vital Signs: Vital signs: Vital Signs Pulse Rate 77 05/29/23 18:28 Blood Pressure 97/44 05/29/23 18:28 Pulse Oximetry 97 05/29/23 18:28 Oxygen Delivery Me thod Room Air 05/29/23 18:28 MDM - Altered Mental Status Medical Decision Making Given the patient's mental status changes and refusal for dialysis I will obtain a CT scan of the patient's head as he does have significantly altered mental status. I will obtain a CBC as well as a CMP cardiac enzymes and EKG and chest x-ray. Medical Records I reviewed the patient's medical records. Lab Data 05/29/23 18:39 05/29/23 18:39 Radiology Impressions Chest X-Ray 05/29/23 18:45 IMPRESSION: Large left-sided pleural effusion redemonstrated. Underlying pulmonary consolidation can not be excluded. Head CT 05/29/23 18:45 IMPRESSION: 1. No acute intracranial abnormality. 2. Small-vessel ischemic disease. Laboratory Results WBC 9.60 10^3/uL (3.29-11.43) 05/29/23 18:39 RBC 3.42 10^6/uL (3.85-5.65) L 11/02/23 18:39 Hgb 10.20 g/dL (11.27-16.99) L 05/29/23 18:39 Hct 32.7 % (37-53) L 05/29/23 18:39 MCV 95.6 fl (82-101) 05/29/23 18:39 MCH 29.8 pg (27-33) 05/29/23 18:39 MCHC 31.2 g/dL (30-55) 05/29/23 18:39 RDW 17.0 % (12.1-15.1) H 05/29/23 18:39 Plt Count 356 10^3/cmm (157-399) 05/29/23 18:39 MPV 9.2 fL (7.4-10.4) 05/29/23 18:39 Neut % (Auto) 61.0 % 05/29/23 18:39 Lymph % (Auto) 28.4 % 05/29/23 18:39 [place] % (Auto) 9.1 % 05/29/23 18:39 Eos % (Auto) 0.8 % 05/29/23 18:39 Baso % (Auto) 0.1 % 05/29/23 18:39 Neut # (Auto) 5.85 10^3/uL (1.8-7.7) 05/29/23 18:39 Lymph # (Auto) 2.7 10^3/uL (0.8-4.8) 05/29/23 18:39 [place] # (Auto) 0.9 10^3/uL (0.2-0.9) 05/29/23 18:39 Eos # (Auto) 0.1 10^3/uL (0.0-0.8) 05/29/23 18:39 Baso # (Auto) 0.0 10^3/uL (0.0-0.1) 05/29/23 18:39 Nucleated RBC % (auto) 0 % 05/29/23 18:39 Nucleated RBCs # 0.0 /100WBC 05/29/23 18:39 PT 21.60 SECONDS (12.1-14.9) H 05/29/23 18:39 INR 1.81 (0.8-1.2) H 05/29/23 18:39 APTT 37.2 SECONDS (23.9-36.7) H 05/29/23 18:39 Sodium 134 mmol/L (136-145) L 05/29/23 18:39 Potassium 3.5 mmol/L (3.5-5.1) 05/29/23 18:39 Chloride 93 mmol/L (98-107) L 05/29/23 18:39 Carbon Dioxide 25 mmol/L (22-29) 05/29/23 18:39 Anion Gap 19.5 (5-19) H 05/29/23 18:39 BUN 25 mg/dL (8-23) H 05/29/23 18:39 Creatinine 5.7 mg/dL (0.7-1.2) H* 05/29/23 18:39 GFR Calculation Not Reportable 05/29/23 18:39 Glucose 133 mg/dL (65-115) H 05/29/23 18:39 Calculated Osmolality 284 mOsm/kg (285-295) L 05/29/23 18:39 Lactic Acid 3.2 mmol/L (0.5-2.2) H 05/29/23 19:07 Calcium 9.3 mg/dL (8.5-10.5) 05/29/23 18:39 Magnesium 1.8 mg/dL (1.7-2.3) 05/29/23 18:39 Total Bilirubin 0.5 mg/dL (0.15-1.2) 05/29/23 18:39 AST 17 U/L (0-40) 05/29/23 18:39 ALT 17 U/L (0-41) 05/29/23 18:39 Alkaline Phosphatase 110 U/L (40-130) 05/29/23 18:39 C-Reactive Protein 22.0 mg/L (0.0-4.9) H 05/29/23 18:39 NT-Pro-B Natriuret Pep 2086 pg/mL (0-450) H 05/29/23 18:39 Total Protein 6.6 g/dL (6.6-8.7) 05/29/23 18:39 Albumin 3.6 g/dL (3.5-5.2) 05/29/23 18:39 Globulin 3.0 g/dL (1.3-4.6) 05/29/23 18:39 Procalcitonin 0.31 ng/mL (0-0.5) 05/29/23 18:39 All radiology interpretation(s) finalized by discharge Discharge Plan Discharge Patient Disposition: Admitted As Inpatient Clinical Impression: Altered mental status, Encephalopathy Condition: Stable Prescriptions: No Action nitroglycerin [Nitrostat] 0.4 mg tablet, sublingual 0.4 mg SUBLINGUAL Q5M PRN (Reason: Chest Pain) atorvastatin 40 mg tablet 40 mg PO DAILY@2100 bupropion HCl [Wellbutrin XL] 150 mg tablet extended release 24 hr 150 mg PO DAILY@0800 ferrous fumarate 325 mg (106 mg iron) tablet 325 mg PO DAILY finasteride 5 mg tablet 5 mg PO DAILY albuterol sulfate [Ventolin HFA] 90 mcg/actuation HFA aerosol inhaler 1 inh inhalation QID PRN (Reason: shortness of breath or wheezing) Qty: 8.5 3 RF alprazolam 0.25 mg tablet 0.25 mg PO DAILY PRN (Reason: Anxiety) bisacodyl 10 mg Suppository 10 mg MD DAILY PRN (Reason: Constipation) Seroquel 25 mg tablet 25 mg PO BEDTIME cefpodoxime 200 mg tablet 200 mg PO BID Qty: 6 0RF Rx Instructions: must administer with a meal/food B12 Active 1,000 mcg tablet,chewable 1,000 mcg PO DAILY Qty: 60 0RF calcitriol 0.25 mcg capsule See Rx Instructions .ROUTE .COMPLEX Rx Instructions: 0.25 mcg orally 3 times weekly on Friday, Friday, Friday cholecalciferol (vitamin D3) [Vitamin D3] 50 mcg (2,000 unit) Tablet 100 mcg PO DAILY pantoprazole 40 mg tablet,delayed release (DR/EC) 40 mg PO DAILY acyclovir 200 mg capsule 200 mg PO 5XD PRN (Reason: outbreaks) insulin aspart U-100 [Novolog FlexPen U-100 Insulin] 100 unit/mL (3 mL) insulin pen See Rx Instructions .ROUTE .COMPLEX Qty: 15 0RF Rx Instructions: Inject, subcut, 3 times daily, after meals, based on low-dose sliding scale. BS 141-180= 0ML, 181-220= 2ML, 221-260= 4ML, 261-300= 6ML, 301-350= 8ML, 351- 400= 10ML, 401-450= 12ML, 451-500= 14ML. citalopram 30 mg Capsule 30 mg PO DAILY magnesium hydroxide [Milk of Magnesia] 400 mg/5 mL Suspension 30 ml PO DAILY PRN (Reason: Constipation) Fleet Enema 19-7 gram/118 mL Enema 118 ml MD DAILY PRN (Reason: Constipation) alprazolam [Xanax] 0.25 mg Tablet 0.25 mg PO DAILY PRN (Reason: Anxiety) cyanocobalamin (vitamin B-12) 1,000 mcg/mL Solution 1,000 mcg SUBCUT DAILY Rx Instructions: STARTING ON AND ENDING ON THE EVERY MONTH aspirin 81 mg Tablet,Delayed Release (Dr/Ec) 81 mg PO DAILY Referrals: Ramiro Villavicencio MD [Primary Care Provider] - Discharge Diet: Advance as tolerated Discharge Activity: Resume usual activity Patient Instructions: Hyponatremia (ED), Benzodiazepine Use Disorder (ED), Dementia (ED), Non-diabetic Hypoglycemia (ED), Hypoglycemia in a Person with Diabetes (ED), Concussion (ED), Alcohol Intoxication (ED), Subarachnoid Hemorrhage (GEN), Altered Mental Status (ED) Coding Level of Care Code ED Ring Sorter for Milind Johnston
[2023-05-29 18:58] LABS: Basophils % 0.1 %; Eosinophils # 0.1 10^3/uL (0.0-0.8); Eosinophils % 0.8 %; Hematocrit 32.7 % (37-53); Lymphocytes # 2.7 10^3/uL (0.8-4.8); Lymphocytes % 28.4 %; Mean Corpuscular HGB Conc 31.2 g/dL (30-55); Mean Corpuscular Hemoglobin 29.8 pg (27-33); Mean Corpuscular Volume 95.6 fl (82-101); Mean Platelet Volume 9.2 fL (7.4-10.4); Monocytes # 0.9 10^3/uL (0.2-0.9); Monocytes % 9.1 %; Neutrophils # 5.85 10^3/uL (1.8-7.7); Nucleated Red Blood Cells % 0 %; Platelet Count 356 10^3/cmm (157-399); Red Blood Count 3.42 10^6/uL (3.85-5.65)
[2023-05-29 19:21] LABS: INR 1.81 (0.8-1.2)
[2023-05-29 19:32] LABS: Partial Thromboplastin Time 37.2 SECONDS (23.9-36.7)
[2023-05-29 19:34] LABS: NT Pro B Type Natriuretic Pept 2086 pg/mL (0-450); Procalcitonin 0.31 ng/mL (0-0.5)
[2023-05-29 19:43] LABS: Lactic Sepsis W/Reflex 3.2 mmol/L (0.5-2.2)
[2023-05-29 19:46] LABS: Alanine Aminotransferase 17 U/L (0-41); Albumin Level 3.6 g/dL (3.5-5.2); Alkaline Phosphatase 110 U/L (40-130); Anion Gap 19.5 (5-19); Aspartate Amino Transferase 17 U/L (0-40); Blood Urea Nitrogen 25 mg/dL (8-23); Calcium 9.3 mg/dL (8.5-10.5); Carbon Dioxide 25 mmol/L (22-29); Chloride 93 mmol/L (98-107); Glucose 133 mg/dL (65-115); Magnesium 1.8 mg/dL (1.7-2.3); Osmolality Calculated 284 mOsm/kg (285-295); Potassium 3.5 mmol/L (3.5-5.1); Sodium 134 mmol/L (136-145); Total Bilirubin 0.5 mg/dL (0.15-1.2); Total Protein 6.6 g/dL (6.6-8.7)
--- NOTE | 2023-05-29 20:31 | CTR_ITS ---
PROCEDURE INFORMATION: Exam: CT Chest Without Contrast; Diagnostic Exam date and time: 05/29/2023 9:44 PM Age: 78 years old Clinical indication: Cough and shortness of breath and wheezing and other: Covid +; Prior surgery; Surgery date: 6+ months; Surgery type: RT shoulder; Additional info: AMS TECHNIQUE: Imaging protocol: Diagnostic computed tomography of the chest without contrast. Radiation optimization: All CT scans at this facility use at least one of these dose optimization techniques: automated exposure control; mA and/or kV adjustment per patient size (includes targeted exams where dose is matched to clinical indication); or iterative reconstruction. REPORTING DATA: Count of CT and Cardiac NM exams in prior 12 months: This patient has received 10 known CTs and 0 known cardiac nuclear medicine studies in the 12 months prior to the current study. COMPARISON: CT chest wo con [id number] 04/06/2023 12:59 PM RADIATION DOSE METRICS: Total DLP (mGy-cm): 665 FINDINGS: Lungs: See Pleural spaces finding. Pleural spaces: Large left-sided pleural effusion with near-complete collapse of the left lower lobe and significant atelectatic changes in the left upper lobe. Heart: Unremarkable. No cardiomegaly. No pericardial effusion. Coronary arteries: Coronary arterial atherosclerotic calcifications are present. Lymph nodes: Unremarkable. No enlarged lymph nodes. Vasculature: Unremarkable. No aortic aneurysm. Kidneys and ureters: There is a 2.2 cm hypodense lesion along the posterolateral cortex of the right kidney measuring 55 Hounsfield units and a 1.6 cm hypodense lesion in the superior pole of the left kidney measuring up to 39 Hounsfield units. These do not meet imaging criteria for a simple cyst and a three-phase renal CT or renal MRI may be of benefit to more fully characterize this finding. Bones/joints: Unremarkable. No acute fracture. Soft tissues: Right IJ approach central venous catheter positioned with its tip in the right atrium. CT/CT chest wo con [id number] IMPRESSION: 1. Large left-sided pleural effusion with near-complete collapse of the left lower lobe and significant atelectatic changes in the left upper lobe. 2. Atherosclerosis. Coronary artery disease. 3. There is a 2.2 cm hypodense lesion along the posterolateral cortex of the right kidney measuring 55 Hounsfield units and a 1.6 cm hypodense lesion in the superior pole of the left kidney measuring up to 39 Hounsfield units. These do not meet imaging criteria for a simple cyst and a three-phase renal CT or renal MRI may be of benefit to more fully characterize this finding.
[2023-05-29 21:09] LABS: Reflex Lactate Order REFLEX LACTIC ORDERD
[2023-05-29 21:27] LABS: Influenza A by IFA negative (Negative); Influenza B by IFA negative (Negative)
[2023-05-29 21:38] LABS: SARS Covid-2 Antigen positive (Negative)
[2023-05-29 22:06] VITALS: BP 97/44; PULSE 77; RESP 18; O2SAT 97
--- NOTE | 2023-05-29 22:19 | PC.NURSE ---
This patient has arrived on the floor from ED via stretcher. He IS very agitated and combative. He is refusing to have telemetry placed at this time. He has been throwing punches at staff and refusing care. Informed Dr Delcid and received onetime dose Haldol 1mg IM now. RBVO Will continue to monitor.
[2023-05-29] MEDS: haloperidol inj 5 mg/mL INJ 1 mL 1 MG IM (22:40)
--- NOTE | 2023-05-29 23:20 | P.HP_ITS ---
Providers/Chief Complaint Admitting Physician: Rina Delcid MD Primary Care Provider: Ramiro Villavicencio MD Chief Complaint: ams History of Present Illness Jhon Marcos is a 78 year old male ?with past medical history of myocardial infarction diabetes mellitus status post stroke hypertension hyperlipidemia and BPH, recent complicated admission here in early March for perforated diverticulitis with intra-abdominal abscess managed by ex lap and then with prolonged antibiotic course. That hospital course was complicated by development of sepsis, perisplenic fluid collection, intra-abdominal abscess, C. difficile colitis, A-fib with RVR, DVT and NSTEMI with cardiomyopathy EF down to 40 to 45%. He also had CKD prior to that episode and was planned to be started on peritoneal dialysis, however this was eventually deferred due to the perforated diverticulitis and instead patient was started on hemodialysis which she has continued. His hospital course had also been complicated by delirium, encephalopathy. He improved with regards to all of his symptoms and has been residing in a alf facility since then. He has continued to have intermittent confusion and changes in mentation, requiring further admission in April 2023 at which time it was thought to be related to a possible UTI versus stroke. MRI of the head was performed and was unremarkable for acute infarct. Uremia was thought to be contributing.Per discussion with facility patient has been noted to be sundowning in the evenings with agitation. He presented to the emergency room today from alf facility due to worsening mentation. Patient was very combative agitated, refusing interventions all through the day including his scheduled dialysis which she gets on Friday. He recently tested positive for COVID-19 and had a UTI however was refusing all his medications. On arrival patient was confused, disoriented unable to participate in any history. Per his daughter who was at his bedside patient had been doing well recently, is alert awake and oriented most of the times but has behavioral problems where he can be aggressive and agitated. He required administration of Haldol upon being transferred to [facility] due to agitation following which he has been calm and now resting comfortably. Review of records show he is on seroquel at night time. Review of Systems General: Reports: ROS unobtainable due to mental status Medications/Allergies Home Medications Medication Instructions Recorded Confirmed Last Taken Type atorvastatin 40 mg tablet 40 mg PO DAILY@2100 11/22/19 05/29/23 05/29/23 History nitroglycerin 0.4 mg sublingual 0.4 mg sublingual Q5M PRN Chest 11/22/19 05/29/23 03/21/23 History tablet (Nitrostat) Pain ferrous fumarate 325 mg (106 mg 325 mg PO DAILY 04/08/22 05/29/23 05/29/23 History iron) tablet finasteride 5 mg tablet 5 mg PO DAILY 04/08/22 05/29/23 05/29/23 History albuterol sulfate 90 mcg/actuation 1 inh inhalation QID PRN shortness 11/14/22 05/29/23 03/21/23 Rx aerosol inhaler (Ventolin HFA) of breath or wheezing #8.5 grams acyclovir 200 mg capsule 200 mg PO 5XD PRN outbreaks 03/28/23 05/29/23 Unknown History calcitriol 0.25 mcg capsule See Rx Instructions .Route .COMPLEX 03/28/23 05/29/23 05/27/23 History cholecalciferol (vitamin D3) 50 100 mcg PO DAILY 03/28/23 05/29/23 05/29/23 History mcg (2,000 unit) tablet (Vitamin D3) pantoprazole 40 mg tablet,delayed 40 mg PO DAILY 03/28/23 05/29/23 05/29/23 History release insulin aspart U-100 100 unit/mL See Rx Instructions .Route 04/18/23 05/29/23 05/29/23 11:30 Rx (3 mL) subcutaneous pen (Novolog .COMPLEX #15 mL FlexPen U-100 Insulin aspart) aspirin 81 mg tablet,delayed 81 mg PO DAILY 05/01/23 05/29/23 05/29/23 History release citalopram 30 mg capsule 30 mg PO DAILY 05/01/23 05/29/23 05/29/23 History cyanocobalamin (vitamin B-12) 1,000 mcg SUBCUT Q1M 05/01/23 05/29/23 05/02/23 History 1,000 mcg/mL injection solution magnesium hydroxide 400 mg/5 mL 30 ml PO DAILY PRN Constipation 05/01/23 05/29/23 Unknown History oral suspension (Milk of Magnesia) sodium phosphates 19 gram-7 118 ml NJ DAILY PRN Constipation 05/01/23 05/29/23 Unknown History gram/118 mL enema (Fleet Enema) alprazolam 0.25 mg tablet 0.25 mg PO DAILY PRN Anxiety 05/17/23 05/29/23 05/29/23 11:45 History bisacodyl 10 mg rectal suppository 10 mg NJ DAILY PRN Constipation 05/17/23 05/29/23 Unknown History quetiapine 25 mg tablet (Seroquel) 25 mg PO BEDTIME 05/17/23 05/29/23 05/28/23 History mecobalamin (vitamin B12) 1,000 1,000 mcg PO DAILY #60 tabs 05/20/23 05/29/23 05/29/23 Rx mcg chewable tablet (B12 Active) apixaban 5 mg tablet 5 mg PO BID 05/29/23 05/29/23 05/29/23 18:00 History Allergies Allergy/AdvReac Type Severity Reaction Status Date / Time Penicillins Allergy Unknown Unknown Verified 05/29/23 18:42 PFSH Acute PFSH: Medical History AMS (altered mental status) ASHD (arteriosclerotic heart disease) BPH (benign prostatic hyperplasia) Diabetes 1.5, managed as type 2 End stage renal disease Eosinophilic asthma Expressive aphasia History of stroke HTN (hypertension) Hyperlipidemia Iliac DVT (deep venous thrombosis) Metabolic encephalopathy Myocardial infarct CHRISTY (obstructive sleep apnea) Pleural effusion, left Renal failure (ARF), acute on chronic Right leg DVT Systolic CHF Surgical History H/O esophagogastroduodenoscopy (09/26/20) History of colonoscopy (09/26/20) History of knee replacement (~2014) History of shoulder replacement S/P knee replacement S/P PTCA (percutaneous transluminal coronary angioplasty) S/P shoulder replacement Family History Mother Dementia Denies family history of Family history of premature coronary artery disease Social History Smoking and tobacco/nicotine status: former use of tobacco/nicotine Quit status (tobacco/nicotine): has quit using Year quit tobacco: 1971 Former quit date comment: 2ppd x 10 years Alcohol intake: never Household members: spouse Marital status: service: No Current occupational status: retired Vitals/I&O/Wt Last Vital Signs Pulse 77 05/29/23 22:06 Resp 18 05/29/23 22:06 BP 97/44 05/29/23 22:06 Pulse Ox 97 05/29/23 22:06 O2 Del Method Room Air 05/29/23 22:14 Weight last 48 hrs Weight 83.28 kg Physical Exam Narrative: General: confused, agitated, hitting at staff, speaking clear words out of con text, AO x1 HEENT: PERRLA, pupils bilaterally equal and reactive, pallors not present Chest: Normal vesicular breath sounds, no added sounds, equal good air entry bilaterally CVS: S1-S2 regular, no murmurs, no tachycardia, no gallops, no rubs Abdomen: Soft, nontender, no organomegaly, bowel sounds present Neuro: No focal motor deficits, no facial deformity, moving all limbs in bed Data 05/29/23 18:39 05/29/23 18:39 Other Labs: Radiology Impressions Chest X-Ray 05/29/23 18:45 IMPRESSION: Large left-sided pleural effusion redemonstrated. Underlying pulmonary consolidation can not be excluded. Head CT 05/29/23 18:45 IMPRESSION: 1. No acute intracranial abnormality. 2. Small-vessel ischemic disease. Chest CT 05/29/23 20:31 IMPRESSION: 1. Large left-sided pleural effusion with near-complete collapse of the left lower lobe and significant atelectatic changes in the left upper lobe. 2. Atherosclerosis. Coronary artery disease. 3. There is a 2.2 cm hypodense lesion along the posterolateral cortex of the right kidney measuring 55 Hounsfield units and a 1.6 cm hypodense lesion in the superior pole of the left kidney measuring up to 39 Hounsfield units. These do not meet imaging criteria for a simple cyst and a three-phase renal CT or renal MRI may be of benefit to more fully characterize this finding. Laboratory Results WBC 9.60 10^3/uL (3.29-11.43) 05/29/23 18:39 RBC 3.42 10^6/uL (3.85-5.65) L 05/29/23 18:39 Hgb 10.20 g/dL (11.27-16.99) L 05/29/23 18:39 Hct 32.7 % (37-53) L 05/29/23 18:39 MCV 95.6 fl (82-101) 05/29/23 18:39 MCH 29.8 pg (27-33) 05/29/23 18:39 MCHC 31.2 g/dL (30-55) 05/29/23 18:39 RDW 17.0 % (12.1-15.1) H 05/29/23 18:39 Plt Count 356 10^3/cmm (157-399) 05/29/23 18:39 MPV 9.2 fL (7.4-10.4) 05/29/23 18:39 Neut % (Auto) 61.0 % 05/29/23 18:39 Lymph % (Auto) 28.4 % 05/29/23 18:39 [place] % (Auto) 9.1 % 05/29/23 18:39 Eos % (Auto) 0.8 % 05/29/23 18:39 Baso % (Auto) 0.1 % 05/29/23 18:39 Neut # (Auto) 5.85 10^3/uL (1.8-7.7) 05/29/23 18:39 Lymph # (Auto) 2.7 10^3/uL (0.8-4.8) 05/29/23 18:39 [place] # (Auto) 0.9 10^3/uL (0.2-0.9) 05/29/23 18:39 Eos # (Auto) 0.1 10^3/uL (0.0-0.8) 05/29/23 18:39 Baso # (Auto) 0.0 10^3/uL (0.0-0.1) 05/29/23 18:39 Nucleated RBC % (auto) 0 % 05/29/23 18: Nucleated RBCs # 0.0 /100WBC 05/29/23 18:39 PT 21.60 SECONDS (12.1-14.9) H 05/29/23 18:39 INR 1.81 (0.8-1.2) H 05/29/23 18:39 APTT 37.2 SECONDS (23.9-36.7) H 05/29/23 18:39 Sodium 134 mmol/L (136-145) L 05/29/23 18:39 Potassium 3.5 mmol/L (3.5-5.1) 05/29/23 18:39 Chloride 93 mmol/L (98-107) L 05/29/23 18:39 Carbon Dioxide 25 mmol/L (22-29) 05/29/23 18:39 Anion Gap 19.5 (5-19) H 05/29/23 18:39 BUN 25 mg/dL (8-23) H 05/29/23 18:39 Creatinine 5.7 mg/dL (0.7-1.2) H* 05/29/23 18:39 GFR Calculation Not Reportable 05/29/23 18:39 Glucose 133 mg/dL (65-115) H 05/29/23 18:39 Calculated Osmolality 284 mOsm/kg (285-295) L 05/29/23 18:39 Lactic Acid 3.2 mmol/L (0.5-2.2) H 05/29/23 19:07 Calcium 9.3 mg/dL (8.5-10.5) 05/29/23 18:39 Magnesium 1.8 mg/dL (1.7-2.3) 05/29/23 18:39 Total Bilirubin 0.5 mg/dL (0.15-1.2) 05/29/23 18:39 AST 17 U/L (0-40) 05/29/23 18:39 ALT 17 U/L (0-41) 05/29/23 18:39 Alkaline Phosphatase 110 U/L (40-130) 05/29/23 18:39 C-Reactive Protein 22.0 mg/L (0.0-4.9) H 05/29/23 18:39 NT-Pro-B Natriuret Pep 2086 pg/mL (0-450) H 05/29/23 18:39 Total Protein 6.6 g/dL (6.6-8.7) 05/29/23 18:39 Albumin 3.6 g/dL (3.5-5.2) 05/29/23 18:39 Globulin 3.0 g/dL (1.3-4.6) 05/29/23 18:39 Procalcitonin 0.31 ng/mL (0-0.5) 05/29/23 18:39 Influenza Type A Ag negative (Negative) 05/29/23 20:38 Influenza Type B Ag negative (Negative) 05/29/23 20:38 SARS-CoV-2 Ag (Rapid) positive (Negative) H 05/29/23 20:38 Micro: Microbiology 05/29/23 19:15 Blood Culture - Preliminary Blood SPECIMEN COLLECTED 05/29/23 19:07 Blood Culture - Preliminary Blood SPECIMEN COLLECTED A&P Assessment and plan (1) Altered mental status: Altered mental status, acute delirium appears to be most likely. This comes in a background of slowly deteriorating mentation since March 2023 at which time patient was admitted with critical illness and a complicated hospital course as described above. Started currently on Haldol 1 mg IM as needed following which patient has been calm. Continue his home dose of Seroquel and citalopram as he is already taking Potential contribution by encephalopathy given acute viral illness with COVID-19 and infection, thus far evaluation with left-sided pneumonia and pleural effusion as seen on CT imaging. Also likely contributed by uremia given missed HD CT head negative for acute intracranial events. (2) COVID: Remdisivir 200mg iv x 1 followed by 100mg iv daily dexamethasone 6mg IVP daily duoneb q6h prn empiric piperacillin tazobactam Flutter valve/spirometer at bedside trend inflammatory markers including CRP Unlikely PE as patient is on Eliquis for DVT as outaptient (3) Pneumonia: LLL pneumonia and pleural effusion Zosyn empirically as above Check MRSA nares (4) End stage renal disease on dialysis: Resume hemodialysis as inpatient Nephrology consulted Plan Recent intraabdominal abscess in 03/2023: interim CT to assess for resolution, evaluation for underlying abdominal infection as potentially contributing Dvt ppx: Eliquis to suffice Full code per [facility] records Attestations Medical Necessity Statement*: > 2 midnight admission is anticipated Coding Level of Care Code Acute Code for Chg Fwd High MDM includes number and complexity of problems actively addressed during encounter, amount and/or complexity of data reviewed/ordered and described risk of complication, morbidity or mortality of management as documented Diagnoses Altered mental status R41.82 COVID U07.1 Pneumonia J18.9 End stage renal disease on dialysis N18.6; Z99.2
[2023-05-30] VITALS (14 sets, daily range): BP systolic 94–124; BP diastolic 57–79; PULSE 73–101; RESP 16–27; TEMP 36.6–37; O2SAT 93–96
[2023-05-30] MEDS: dexamethasone 4 mg/mL INJ 6 MG IVP ×2 (00:19→23:35)
[2023-05-30] MEDS: remdesivir 200 MG in sodium chloride 0.9% (100 ml) 100 ML 100 MG IV (00:20)
[2023-05-30] MEDS: heparin 5,000 unit/mL INJ 1 mL 5000 UNIT SUBCUT (00:20)
[2023-05-30 00:34] LABS: Lactic Acid level (Lactate) 1.7 mmol/L (0.5-2.2)
[2023-05-30] MEDS: piperacillin-tazobactam 3.375 GM in sodium chloride 0.9% (plus) 50 ML IV ×2 (01:19→14:16)
--- NOTE | 2023-05-30 04:00 | PC.NURSE ---
Patient refusing to cooperative to have labs drawn. Patient pulls away and yells at staff leave me alone attempting to provide care. Patient calm when left alone. Has not attempted to get out of bed this evening. Bed alarm is armed.
--- OUTSIDE RECORDS SUMMARY | 2023-05-30 06:12 | XMS_ITS ---
Author Name Jason Calvert Address [address] [place] [id number] Phone [phone] Organization [facility], NA DOCUMENT DISCLAIMER Multiple document versions may exist, please be sure you review the latest version. The information in the [facility] Progress Note Document represents a providers documented clinical note containing certain health and medical information. It may not contain the complete medical history for the patient and should be independently verified. The represented time in the document is Eastern Time PROVIDER ROUNDING NOTE MAYTE Patient:?Jhon?Hemant,?1945,?78y,?M Dialysis?Location:?[facility] Attending?Telephone Operator Receptionist:?Annette Service?Date:?05/13/2023 Service?Provider:?Jason?Enrike,? I?met?face?to?face?with?the?patient?today. OVERVIEW The?patient?presented?with?MAYTE?on?dialysis. 04/19/2023 Comments:?MAYTE?secondary?ATN,?CKD?4?prior.??Low?UOP.&#16 0;?Suspect?some?dementia,?anxious?with?treatments?.?Will&#16 0;try?to?not?do?HD?or?finish?at?times.?High?risk&# 160;for?ESRD?discussed?with?patient.? Medications?and?labs?reviewed. HOME?MEDICATIONS Allergies:? ??[facility]?PRESCRIPTION ??IHD?3x?Week?Start?date:?05/13/23 ??Dialyzer:?180NRe?Optiflux ??BFR:?450 ??DFR:?Autoflow?2 ??Potassium:?3.0 ??Sodium:?138 ??EDW:?86.7 ??Duration:?3:30 ??Calcium:?2.5 ??Bicarb:?36 ??Rx?updated?on:?05/10/2023 TREATMENT?ASSESSMENT Blood?pressure?controlled.?No?changes?indicated.? BP?Sit?Pre ??05/13/2023:?146/78 ??05/10/2023:?122/71 ??05/08/2023:?150/82 BP?Sit?Post ??05/13/2023:?144/81 ??05/10/2023:?128/60 ??05/08/2023:?123/77 Tx?Duration ??05/13/2023:?3:42 ??05/10/2023:?3:39 ??05/08/2023:?3:34 Missed?Treatments 0?-?last?30?days 0?-?last?60?days FLUID?ASSESSMENT Fluid?status?acceptable.?Interdialytic?weight?gain?acceptable.?No ?changes?indicated.? EDW?(kg) ??05/13/2023:?86.7 ??05/10/2023:?88.2 ??05/08/2023:?90.5 Weight?Pre?(kg) ??05/13/2023:?86.9 ??05/10/2023:?87.7 ??05/08/2023:?89.4 Weight?Post?(kg) ??05/13/2023:?86.3 ??05/10/2023:?86.7 ??05/08/2023:?88.2 PWV?(kg) ??05/13/2023:?-0.4 ??05/10/2023:?-1.5 ??05/08/2023:?-2.3 UF?Rate?(mL/kg/hr) ??05/13/2023:?1.9 ??05/10/2023:?3.2 ??05/08/2023:?3.8 ADEQUACY?ASSESSMENT Adequacy?target?met.?Prescription?compliance?acceptable.?No?changes?indicated.? spKt/V,?URR,?Creatinine ??05/08/2023:?-,?-,?4.24 ??05/01/2023:?1.5,?75,?4.57 ??04/24/2023:?-,?-,?5.35 ACCESS?ASSESSMENT ??Access?Type:?CVCatheter ??Access?SubType:?Tunneled ??Access?Status:?Active?(In?Use)?-?04/14/2023 ??Access?Location:?Chest ??Placed:?04/01/2023 Vascular?access?reviewed. ANEMIA?ASSESSMENT HGB?below?goal.?Treatment?protocol?ordered.? HGB,?TSAT ??05/08/2023:?8.9,?- ??05/01/2023:?8.6,?26.0 ??04/24/2023:?7.9,?- ?? Ferritin ??2023:?206.0 Mircera,?IVP?(mcg) ??05/10/2023:?60 ??04/26/2023:?50 Iron?Sucrose?(Venofer)?(mg) ??05/10/2023:?100 ??05/08/2023:?100 ??05/06/2023:?100 BMM?ASSESSMENT PTH?elevated.?Calcium?controlled.?Phosphorus?controlled.?BMM?meds ?adherence?acceptable.?Referred?to?dietitian.? Phosphorus,?Calcium ??05/08/2023:?-,?9.0 ??05/01/2023:?3.5,?8.7 ??2023:?5.7,?9.3 ?? Magnesium ??2023:?1.8 ?? PTH,?Intact ??2023:?876.0 Vitamin?D?(Calcitriol)?Oral?(mcg) ??05/10/2023:?0.5 ??05/08/2023:?0.5 ??05/06/2023:?0.25 NUTRITION?ASSESSMENT Potassium?controlled.?Albumin?below?goal.?Liberalized?diet.? Albumin,?Potassium ??05/01/2023:?3.3,?3.6 ??2023:?3.6,?4.7 ?? eNPCR ??05/01/2023:?0.32 PHYSICAL?EXAM Exam?Performed.?Vital?Signs?Reviewed.?Lungs?-?Clear.?CV&#160 ;-?Blood?pressure?noted.?CV?-?RRR. DIAGNOSIS Chief?Complaint:?N17.9?Acute?kidney?failure,?unspecified Patient?data?updated?05/13/2023?at?5:43?PM Signed?By:?Enrike,?Jason,???on?05/13/2023?5:45:39 PM END OF DOCUMENT
--- OUTSIDE RECORDS SUMMARY | 2023-05-30 06:13 | XMS_ITS ---
Author Name Glenis Do Address [address] [place] [id number] Phone [phone] Organization [facility], NA DOCUMENT DISCLAIMER Multiple document versions may exist, please be sure you review the latest version. The information in the [facility] Progress Note Document represents a providers documented clinical note containing certain health and medical information. It may not contain the complete medical history for the patient and should be independently verified. The represented time in the document is Eastern Time PROVIDER ROUNDING NOTE MAYTE Patient:?Jhon?Hemant,?1945,?78y,?M Dialysis?Location:?[place] Attending?Digital Field Service Technician:?Annette Service?Date:?05/22/2023 Service?Provider:?Glenis?Ernestina,?BLACK PULLER I?met?face?to?face?with?the?patient?today. OVERVIEW The?patient?presented?with?MAYTE?on?dialysis. 04/19/2023 Comments:?MAYTE?secondary?ATN,?CKD?4?prior.??Low?UOP.&#16 0;?Suspect?some?dementia,?anxious?with?treatments?.?Will&#16 0;try?to?not?do?HD?or?finish?at?times.? Medications?and?labs?reviewed. LAST?HOSPITALIZATION Discharge?Diagnosis:?N39.0?Urinary?tract?infection,?site?not specified Admission?Date?05/17/23 Discharge?Date?05/19/23 Comments:?Recently?hospitalized?for?[facility]?PRESCRIPTION ??IHD?3x?Week?Start?date:?05/13/23 ??Dialyzer:?180NRe?Optiflux ??BFR:?450 ??DFR:?Autoflow?2 ??Potassium:?3.0 ??Sodium:?138 ??EDW:?86.7 ??Duration:?3:30 ??Calcium:?2.5 ??Bicarb:?36 ??Rx?updated?on:?05/10/2023 TREATMENT?ASSESSMENT BP?Sit?Pre ??05/15/2023:?154/92 ??05/13/2023:?146/78 ??05/10/2023:?122/71 BP?Sit?Post ??05/15/2023:?147/86 ??05/13/2023:?144/81 ??05/10/2023:?128/60 Tx?Duration ??05/15/2023:?3:17 ??05/13/2023:?3:42 ??05/10/2023:?3:39 Missed?Treatments 0?-?last?30?days 0?-?last?60?days FLUID?ASSESSMENT Comments:?~?5?kg?below?goal?today EDW?(kg) ??05/15/2023:?86.7 ??05/13/2023:?86.7 ??05/10/2023:?88.2 Weight?Pre?(kg) ??05/15/2023:?85.4 ??05/13/2023:?86.9 ??05/10/2023:?87.7 Weight?Post?(kg) ??05/15/2023:?85.6 ??05/13/2023:?86.3 ??05/10/2023:?86.7 PWV?(kg) ??05/15/2023:?-1.1 ??05/13/2023:?-0.4 ??05/10/2023:?-1.5 UF?Rate?(mL/kg/hr) ??05/15/2023:?-0.7 ??05/13/2023:?1.9 ??05/10/2023:?3.2 ADEQUACY?ASSESSMENT Comments:?No?change?seen?in?renal?funct spKt/V,?URR,?Creatinine ??05/15/2023:?-,?-,?4.2 ??05/08/2023:?-,?-,?4.24 ??05/01/2023:?1.5,?75,?4.57 ACCESS?ASSESSMENT ??Access?Type:?CVCatheter ??Access?SubType:?Tunneled ??Access?Status:?Active?(In?Use)?-?04/14/2023 ??Access?Location:?Chest ??Placed:?04/01/2023 Vascular?access?reviewed. ANEMIA?ASSESSMENT Comments:?Improving HGB,?TSAT ??05/15/2023:?9.6,?- ??05/08/2023:?8.9,?- ??05/01/2023:?8.6,?26.0 ?? Ferritin ??05/15/2023:?704.0 ??2023:?206.0 Mircera,?IVP?(mcg) ??05/10/2023:?60 ??04/26/2023:?50 Iron?Sucrose?(Venofer)?(mg) ??05/15/2023:?100 ??05/13/2023:?100 ??05/10/2023:?100 BMM?ASSESSMENT Phosphorus,?Calcium ??05/15/2023:?-,?9.5 ??05/08/2023:?-,?9.0 ??05/01/2023:?3.5,?8.7 ?? Magnesium ??2023:?1.8 ?? PTH,?Intact ??2023:?876.0 Vitamin?D?(Calcitriol)?Oral?(mcg) ??05/15/2023:?0.5 ??05/13/2023:?0.5 ??05/10/2023:?0.5 NUTRITION?ASSESSMENT Albumin,?Potassium ??05/01/2023:?3.3,?3.6 ??2023:?3.6,?4.7 ?? eNPCR ??05/01/2023:?0.32 PHYSICAL?EXAM Exam?Not?Performed. DIAGNOSIS Chief?Complaint:?N17.9?Acute?kidney?failure,?unspecified Patient?data?updated?05/22/2023?at?10:23?AM Signed?By:?Ernestina,?Glenis,?BLACK PULLER??on?05/22/2023?10:25:00 AM END OF DOCUMENT
[2023-05-30 06:44] LABS: Glucose Point of Care 192 mg/dL (70-110)
--- NOTE | 2023-05-30 08:30 | P.CONIM_ITS ---
Providers/Reason For Consult Consulting Physician/Specialty*: [facility]/Nephrology Reason for Consult*: ESRD Attending Physician: Rina Delcid MD Primary Care Provider: Ramiro Villavicencio MD History of Present Illness History of Present Illness Jhon Marcos is a 78 year old male Patient is a 78-year-old male with past medical history of coronary artery disease, diabetes, history of stroke, hypertension dyslipidemia, end-stage renal disease on dialysis-twice a week per patient on Tuesdays and presented to the emergency department due to altered mental status. Patient was admitted here in March with perforated diverticulitis with intra-abdominal abscess requiring ex lap. Also he was recently tested positive for COVID-19 and had an UTI. . Review of Systems Narrative: Other ROS negative Medications/Allergies Home Medications Medication Instructions Recorded Confirmed Last Taken Type atorvastatin 40 mg tablet 40 mg PO DAILY@2100 11/22/19 05/29/23 05/29/23 History nitroglycerin 0.4 mg sublingual 0.4 mg sublingual Q5M PRN Chest 11/22/19 05/29/23 03/21/23 History tablet (Nitrostat) Pain ferrous fumarate 325 mg (106 mg 325 mg PO DAILY 04/08/22 05/29/23 05/29/23 Hi story iron) tablet finasteride 5 mg tablet 5 mg PO DAILY 04/08/22 05/29/23 05/29/23 History albuterol sulfate 90 mcg/actuation 1 inh inhalation QID PRN shortness 11/14/22 05/29/23 03/21/23 Rx aerosol inhaler (Ventolin HFA) of breath or wheezing #8.5 grams acyclovir 200 mg capsule 200 mg PO 5XD PRN outbreaks 03/28/23 05/29/23 Unknown History calcitriol 0.25 mcg capsule See Rx Instructions .Route .COMPLEX 03/28/23 05/29/23 05/27/23 History cholecalciferol (vitamin D3) 50 100 mcg PO DAILY 03/28/23 05/29/23 05/29/23 History mcg (2,000 unit) tablet (Vitamin D3) pantoprazole 40 mg tablet,delayed 40 mg PO DAILY 03/28/23 05/29/23 05/29/23 History release insulin aspart U-100 100 unit/mL See Rx Instructions .Route 04/18/23 05/29/23 05/29/23 11:30 Rx (3 mL) subcutaneous pen (Novolog .COMPLEX #15 mL FlexPen U-100 Insulin aspart) aspirin 81 mg tablet,delayed 81 mg PO DAILY 05/01/23 05/29/23 05/29/23 History release citalopram 30 mg capsule 30 mg PO DAILY 05/01/23 05/29/23 05/29/23 History cyanocobalamin (vitamin B-12) 1,000 mcg SUBCUT Q1M 05/01/23 05/29/23 05/02/23 History 1,000 mcg/mL injection solution magnesium hydroxide 400 mg/5 mL 30 ml PO DAILY PRN Constipation 05/01/23 05/29/23 Unknown History oral suspension (Milk of Magnesia) sodium phosphates 19 gram-7 118 ml SC DAILY PRN Constipation 05/01/23 05/29/23 Unknown History gram/118 mL enema (Fleet Enema) alprazolam 0.25 mg tablet 0.25 mg PO DAILY PRN Anxiety 05/17/23 05/29/23 05/29/23 11:45 History bisacodyl 10 mg rectal suppository 10 mg SC DAILY PRN Constipation 05/17/23 05/29/23 Unknown History quetiapine 25 mg tablet (Seroquel) 25 mg PO BEDTIME 05/17/23 05/29/23 05/28/23 History mecobalamin (vitamin B12) 1,000 1,000 mcg PO DAILY #60 tabs 05/20/23 05/29/23 05/29/23 Rx mcg chewable tablet (B12 Active) apixaban 5 mg tablet 5 mg PO BID 05/29/23 05/29/23 05/29/23 18:00 History Allergies Allergy/AdvReac Type Severity Reaction Status Date / Time Penicillins Allergy Unknown Unknown Verified 05/29/23 18:42 Current Medications Generic Name Dose Route Start Last Admin Trade Name Freq PRN Reason Stop Dose Admin Dexamethasone 6 mg 05/29/23 23:00 05/30/23 00:19 Dexamethasone 4 Mg/Ml Inj IVP 6 mg Q24H JOSEPHINE Administration Piperacillin Sod/Tazobactam 50 mls @ 12.5 mls/hr 05/30/23 00:45 05/30/23 04:23 Sod 3.375 gm/ Sodium Chloride IV Infused Q12H JOSEPHINE Infusion Protocol PFS Acute PFSH: Medical History (Updated 05/30/23 @ 08:33 by Susanne Wilde MD) AMS (altered mental status) ASHD (arteriosclerotic heart disease) BPH (benign prostatic hyperplasia) Diabetes 1.5, managed as type 2 End stage renal disease Eosinophilic asthma Expressive aphasia History of stroke HTN (hypertension) Hyperlipidemia Iliac DVT (deep venous thrombosis) Metabolic encephalopathy Myocardial infarct CHRISTY (obstructive sleep apnea) Pleural effusion, left Renal failure (ARF), acute on chronic Right leg DVT Systolic CHF Surgical History H/O esophagogastroduodenoscopy (09/26/20) History of colonoscopy (09/26/20) History of knee replacement (~2014) History of shoulder replacement S/P knee replacement S/P PTCA (percutaneous transluminal coronary angioplasty) S/P shoulder replacement Family History Mother Dementia Denies family history of Family history of premature coronary artery disease Social History Smoking and tobacco/nicotine status: former use of tobacco/nicotine Quit status (tobacco/nicotine): has quit using Year quit tobacco: 1971 Former quit date comment: 2ppd x 10 years Alcohol intake: never Household members: spouse Marital status: service: No Current occupational status: retired Vitals/I&O/Wt Last Vital Signs Temp 98.1 F 05/30/23 04:00 Pulse 82 05/30/23 08:23 Resp 16 05/30/23 08:23 BP 112/72 05/30/23 04:00 Pulse Ox 96 05/30/23 08:23 O2 Del Method Room Air 05/30/23 08:23 05/29/23 05/30/23 05/30/23 22:59 06:59 14:59 Intake Total 150 / 150 Output Total 0 / 0 Balance 150 / 150 Weight last 48 hrs Weight 83.28 kg Physical Exam Narrative: awake, alert s1s2 rrr per report lungs clear per report No edema Data 05/30/23 08:20 05/30/23 08:20 Micro: Microbiology 05/29/23 19:15 Blood Culture - Preliminary Blood SPECIMEN COLLECTED 05/29/23 19:07 Blood Culture - Preliminary Blood SPECIMEN COLLECTED A&P Assessment and plan (1) End stage renal disease: Plan 1. End-stage renal disease: Per patient he receives dialysis twice a week on Tuesdays and . Missed HD yesterday and plan for HD today ultrafiltration as tolerated. 2. Altered mental status: Somewhat contributed by uremia likely, plan for HD today 3. Anemia: Hemoglobin at goal 4. History of hypertension: Blood pressure controlled 5. Pneumonia and pleural effusion, on antibiotics-Zosyn 6. Positive COVID, ordered remdesivir per primary team Patient evaluated using audiovisual cart. Time spent 40 minutes Consult Attestations Medical Necessity Statement: per medicine team Coding Level of Care Code Acute Code for [facility] Fwd Diagnoses End stage renal disease N18.6
[2023-05-30 08:31] LABS: Hematocrit 30.3 % (37-53); Lymphocytes # 1.3 10^3/uL (0.8-4.8); Lymphocytes % 23.5 %; Mean Corpuscular HGB Conc 32.3 g/dL (30-55); Mean Corpuscular Hemoglobin 30.5 pg (27-33); Mean Corpuscular Volume 94.4 fl (82-101); Mean Platelet Volume 8.9 fL (7.4-10.4); Monocytes # 0.2 10^3/uL (0.2-0.9); Monocytes % 3.9 %; Neutrophils # 3.93 10^3/uL (1.8-7.7); Neutrophils % 72.2 %; Nucleated Red Blood Cells % 0 %; Platelet Count 316 10^3/cmm (157-399); Red Blood Count 3.21 10^6/uL (3.85-5.65); Red Cell Distribution Width 16.9 % (12.1-15.1); White Blood Count 5.44 10^3/uL (3.29-11.43)
[2023-05-30 08:47] LABS: Alanine Aminotransferase 15 U/L (0-41); Albumin Level 3.1 g/dL (3.5-5.2); Alkaline Phosphatase 99 U/L (40-130); Anion Gap 18.8 (5-19); Aspartate Amino Transferase 14 U/L (0-40); Blood Urea Nitrogen 30 mg/dL (8-23); C Reactive Protein 14.8 mg/L (0.0-4.9); Calcium 8.9 mg/dL (8.5-10.5); Carbon Dioxide 26 mmol/L (22-29); Chloride 95 mmol/L (98-107); Globulin 2.9 g/dL (1.3-4.6); Glucose 119 mg/dL (65-115); Osmolality Calculated 289 mOsm/kg (285-295); Potassium 3.8 mmol/L (3.5-5.1); Sodium 136 mmol/L (136-145); Total Bilirubin 0.4 mg/dL (0.15-1.2)
[2023-05-30] MEDS: apixaban 5 mg Tablet PO ×2 (08:48→17:42)
[2023-05-30] MEDS: aspirin 81 mg EC Tablet PO (08:48)
[2023-05-30] MEDS: finasteride 5 mg Tablet PO (08:49)
--- NOTE | 2023-05-30 08:57 | PC.CHAP ---
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 [] Patient/Family/Request visit [] Outpatient visit [] Follow-up visit [] Physician referral [] Code/Alert [] Routine visit [] Staff referral [] Actively dying [] Patient sleeping [] Family support [] [] Out of room [] Palliative care [] [] Receiving care in room [] Pre-surgical visit [] Trauma [] Long length of stay [] ICU visit [x] Other:Contact precautions, no visit Relational/Emotional Strength [] Patient feels connected with others/family/visitors/staff [] Distress [] Loneliness/isolation [] Abandonment Spirituality of Patient [] Person of Alice [] Attends Moravian of their Alice [] Believes in Prayer [] Reads Bible or Hoahaoism materials [] There are Spiritual issues to be addressed Rn Appeals Interventions [] Prayer [] Active listening [] Non-anxious presence [] Spiritual/emotional support [] Crisis/trauma care [] Spiritual counseling [] Bereavement support [] Provided bereavement packet [] Provided Bible/devotional materials [] Provided toy/stuffed animal, coloring book to patient or family member [] Provided Communion [] Anointing/[place] [] Salvation [] Completed spiritual assessment [] Other: Impact on Illness or Injury [] Angry [] Fearful [] Anxious [] Often cries [] Exhaustion [] Unable to work [] Unable to attend pentecostalism [] Unable to walk/stand [] Unable to read [] Unable to drive [] Unable to eat/drink [] Unable to sleep [] Unable to be with family [] Patient intubated [] Other: Summary Time spent with patient
[2023-05-30 09:18] LABS: Hepatitis B Surface Antigen Non-Reactive (Nonreactive)
[2023-05-30 09:21] LABS: Hepatitis B Surface AB < 3.5 (11.5-1000)
--- NOTE | 2023-05-30 10:10 | PC.HD ---
Patient ID'd/assessed; stable for HD. Electronic consent for hemodialysis and telenephrology signed by patient prior to treatment initiation. Dr. Kilpatrick at bedside; patient c/o some back pain. Dr. Kilpatrick to write for some pain medications for patient comfort. Treatment initiated without difficulty. Dressing changed; triple antibiotic ointment applied to catheter insertion site. No s/s of infection.
--- NOTE | 2023-05-30 13:24 | PC.SOCIAL ---
IMM Update pg 2 of IMM updated and reviewed w/ patient. Copy provided and Copy dated, initialed and placed in chart.
[2023-05-30] MEDS: iohexol 350 mg/mL 500 mL Btl (per mL) IV (15:21)
--- NOTE | 2023-05-30 16:48 | P.PN_ITS ---
Subjective Subjective: Patient was seen in dialysis room, he is alert to person, to place, to time he follows all commands, denies any chest pain, no shortness of breath no abdominal pain, he reports he had a bowel movement a few days ago, no bloody or black stools, Vitals/I&O/Wt Last Vital Signs Temp 98.6 F 05/30/23 14:20 Pulse 87 05/30/23 15:46 Resp 16 05/30/23 14:20 BP 113/74 05/30/23 14:20 Pulse Ox 96 05/30/23 12:00 O2 Del Method Room Air 05/30/23 12:00 05/30/23 05/30/23 05/30/23 06:59 14:59 22:59 Intake Total 150 / 150 300 / 300 Output Total 0 / 0 3300 / 3300 Balance 150 / 150 -3000 / -3000 Weight last 48 hrs Weight 80 kg Weight 83.28 kg Physical Exam Const: COMMON NORMALS: no acute distress and patient oriented x3 Resp: COMMON NORMALS: normal respiratory effort, No retractions, No use of accessory muscles and clear to auscultation bilaterally AUSCULTATION: clear to auscultation bilaterally Cardio: COMMON NORMALS: regular rate, regular rhythm, S1 normal heart sound present and S2 normal heart sound present RATE: regular rate RHYTHM: regular rhythm HEART SOUNDS: S1 normal heart sound present and S2 normal heart sound present GI: COMMON NORMALS: Normal to inspection, nondistended, normoactive bowel sounds present and non-tender Extremity: COMMON NORMALS: no pedal edema Neuro: COMMON NORMALS: patient oriented x3 Psych: COMMON NORMALS: mental status grossly normal Data 05/30/23 08:20 05/30/23 08:20 Micro: Microbiology 05/29/23 19:15 Blood Culture - Preliminary Blood SPECIMEN COLLECTED 05/29/23 19:07 Blood Culture - Preliminary Blood SPECIMEN COLLECTED A&P Assessment and plan (1) Altered mental status: Likely secondary to pneumonia, COVID-19 Continue his home dose of Seroquel and citalopram as he is already taking CT head negative for acute intracranial events. (2) COVID: Remdisivir 200mg iv x 1 followed by 100mg iv daily dexamethasone 6mg IVP daily duoneb q6h prn empiric piperacillin tazobactam Flutter valve/spirometer at bedside trend inflammatory markers including CRP Unlikely PE as patient is on Eliquis for DVT as outaptient (3) Pneumonia: LLL pneumonia and pleural effusion Zosyn empirically as above Check MRSA nares (4) End stage renal disease on dialysis: Resume hemodialysis as inpatient Nephrology consulted Plan Recent intraabdominal abscess in 03/2023: interim CT to assess for resolution IMPRESSION: 1.? Previous described pelvic abscess is decreased in size compared to previous described above. 2.? Tiny amount of residual fluid or blood products about the spleen nearly resolved. 3.? Moderate LEFT pleural effusion has increased in size with compressive atelectasis LEFT lower lobe. 4.? Seroma along the umbilical incision has improved compared to previous and nearly resolved. Small amount of residual fluid. 5.? No other significant interval changes. evaluation for underlying abdominal infection as potentially contributing Dvt ppx: Eliquis to suffice Full code per [place] records Attestations Medical Necessity Statement*: Patient requires hospitalization for encephalopathy, left lower lobe pneumonia, COVID-19 pneumonia Diagnoses Altered mental status R41.82 COVID U07.1 Pneumonia J18.9 End stage renal disease on dialysis N18.6; Z99.2
[2023-05-30 16:50] LABS: Glucose Point of Care 233 mg/dL (70-110)
[2023-05-30] MEDS: acetaminophen 325 mg Tablet 650 MG PO (17:40)
[2023-05-30] MEDS: insulin lispro 100 unit/1 mL SUBCUT ×2 (17:41→21:55)
[2023-05-30] MEDS: remdesivir 100 MG in sodium chloride 0.9% (100 ml) 100 ML IV (18:27)
[2023-05-30 21:45] LABS: Glucose Point of Care 357 mg/dL (70-110)
[2023-05-30] MEDS: atorvastatin 40 mg Tablet PO (21:57)
[2023-05-30] MEDS: quetiapine 25 mg Tablet PO (21:57)
--- NOTE | 2023-05-30 23:10 | CT_ITS ---
WS: [id number] CT ABDOMEN PELVIS TECHNIQUE: Contrast-enhanced CT of the abdomen and pelvis with coronal and sagittal reformatted image s. CLINICAL INFORMATION: follow up intraabdominal abscess COMPARISON: 04/15/2023 DLP: 802.[address] scans at [facility] use at least one of these dose optimization techniques: automated e xposure control; mA and/or kV adjustment per patient size (includes targeted exams where dose is matc hed to clinical indication); or iterative reconstruction. FINDINGS: Previously described pelvic abscess has decreased in size compared to previous today measuring 2.6 x 1.6 x 2.2 cm. Previously described fluid about the spleen has nearly resolved with a tiny amount of r esidual fluid or blood products. Moderate LEFT pleural effusion has increased compared to previous wi th compressive atelectasis LEFT lower lobe. Diffuse fatty infiltration of the liver. Normal GE junction. Normal caliber abdominal aorta. Aortic c alcification. Mild thickening of the adrenal glands bilaterally. Normal sigmoid colon. No evidence of high-grade small or large bowel obstruction. Few sigmoid diverti culi. Atrophic kidneys bilaterally with bilateral renal cysts. IMPRESSION: 1. Previous described pelvic abscess is decreased in size compared to previous described above. 2. Tiny amount of residual fluid or blood products about the spleen nearly resolved. 3. Moderate LEFT pleural effusion has increased in size with compressive atelectasis LEFT lower lobe . 4. Seroma along the umbilical incision has improved compared to previous and nearly resolved. Small amount of residual fluid. 5. No other significant interval changes.
[2023-05-31] VITALS (11 sets, daily range): BP systolic 99–143; BP diastolic 59–93; PULSE 82–106; RESP 15–22; TEMP 36.5–36.6; O2SAT 93–100
[2023-05-31] MEDS: piperacillin-tazobactam 3.375 GM in sodium chloride 0.9% (plus) 50 ML IV ×2 (00:22→14:17)
[2023-05-31 05:31] LABS: Hematocrit 35.2 % (37-53); Lymphocytes # 1.3 10^3/uL (0.8-4.8); Lymphocytes % 19.5 %; Mean Corpuscular Hemoglobin 29.5 pg (27-33); Mean Corpuscular Volume 95.4 fl (82-101); Mean Platelet Volume 9.1 fL (7.4-10.4); Monocytes # 0.2 10^3/uL (0.2-0.9); Monocytes % 3.1 %; Neutrophils # 5.23 10^3/uL (1.8-7.7); Neutrophils % 76.8 %; Nucleated Red Blood Cells % 0 %; Platelet Count 346 10^3/cmm (157-399); Red Blood Count 3.69 10^6/uL (3.85-5.65); Red Cell Distribution Width 16.9 % (12.1-15.1); White Blood Count 6.81 10^3/uL (3.29-11.43)
[2023-05-31 06:02] LABS: Alanine Aminotransferase 15 U/L (0-41); Albumin Level 3.4 g/dL (3.5-5.2); Alkaline Phosphatase 109 U/L (40-130); Anion Gap 17.6 (5-19); Aspartate Amino Transferase 16 U/L (0-40); Blood Urea Nitrogen 21 mg/dL (8-23); C Reactive Protein 10.3 mg/L (0.0-4.9); Calcium 9.1 mg/dL (8.5-10.5); Carbon Dioxide 27 mmol/L (22-29); Chloride 92 mmol/L (98-107); Globulin 3.3 g/dL (1.3-4.6); Glucose 104 mg/dL (65-115); Magnesium 1.9 mg/dL (1.7-2.3); Osmolality Calculated 279 mOsm/kg (285-295); Phosphorus 3.5 mg/dL (2.5-4.5); Potassium 3.6 mmol/L (3.5-5.1); Sodium 133 mmol/L (136-145); Total Bilirubin 0.4 mg/dL (0.15-1.2); Total Protein 6.7 g/dL (6.6-8.7)
[2023-05-31 06:06] LABS: NT Pro B Type Natriuretic Pept 1541 pg/mL (0-450); Procalcitonin 0.28 ng/mL (0-0.5)
[2023-05-31 06:26] LABS: Glucose Point of Care 300 mg/dL (70-110)
--- NOTE | 2023-05-31 07:55 | PM.PN ---
Subjective Subjective: no new complaints Medications: Reviewed: Yes Vitals/I&O/Wt Last Vital Signs Temp 97.8 F 05/31/23 07:45 Pulse 96 05/31/23 07:45 Resp 17 05/31/23 07:45 BP 141/93 05/31/23 07:45 Pulse Ox 96 05/31/23 07:45 O2 Del Method Room Air 05/31/23 07:45 05/30/23 05/31/23 05/31/23 22:59 06:59 14:59 Intake Total 490 / 790 350.0 / 1140.0 Output Total 0 / 3300 Balance 490 / -2510 350.0 / -2160.0 Weight last 48 hrs Weight 80 kg Weight 83.28 kg Physical Exam Narrative: awake, alert s1s2 rrr per report lungs clear per report No edema Data 05/31/23 05:11 05/31/23 05:11 Micro: Microbiology 05/29/23 19:15 Blood Culture - Preliminary Blood NEGATIVE TO DATE 05/29/23 19:07 Blood Culture - Preliminary Blood NEGATIVE TO DATE A&P Assessment and plan (1) End stage renal disease: Plan 1. End-stage renal disease: Per patient he receives dialysis twice a week on Tuesdays and . s/p hD friday ultrafiltration as tolerated. 2. Altered mental status: Simproved 3. Anemia: Hemoglobin at goal 4. History of hypertension: Blood pressure controlled 5. Pneumonia and pleural effusion, on antibiotics-Zosyn 6. Positive COVID, ordered remdesivir per primary team Patient evaluated using audiovisual cart. Time spent 20 minutes Attestations Medical Necessity Statement*: per medicine team Coding Level of Care Code Acute Code for [facility] Fwd Diagnoses End stage renal disease N18.6
[2023-05-31] MEDS: pantoprazole DR 40 mg Tablet PO (10:34)
[2023-05-31] MEDS: finasteride 5 mg Tablet PO (10:34)
[2023-05-31] MEDS: apixaban 5 mg Tablet PO ×2 (10:34→18:27)
[2023-05-31] MEDS: insulin lispro 100 unit/1 mL SUBCUT ×3 (10:34→21:49)
[2023-05-31] MEDS: aspirin 81 mg EC Tablet PO (10:34)
[2023-05-31 11:38] LABS: Glucose Point of Care 326 mg/dL (70-110)
--- NOTE | 2023-05-31 14:30 | PM.PN ---
Subjective Subjective: Patient was seen this morning, he is sitting up in a chair, denies any fevers, chills, no cough, does report some shortness of breath, currently on room air, he is alert and awake, following commands alert to person, to place, not to time, Vitals/I&O/Wt Last Vital Signs Temp 97.8 F 05/31/23 11:24 Pulse 96 05/31/23 11:24 Resp 16 05/31/23 11:06 BP 105/59 05/31/23 11:24 Pulse Ox 98 05/31/23 11:24 O2 Del Method Room Air 05/31/23 11:24 05/30/23 05/31/23 05/31/23 22:59 06:59 14:59 Intake Total 490 / 790 350.0 / 1140.0 600 / 600 Output Total 0 / 3300 Balance 490 / -2510 350.0 / -2160.0 600 / 600 Weight last 48 hrs Weight 80 kg Weight 83.28 kg Physical Exam Const: COMMON NORMALS: no acute distress Resp: COMMON NORMALS: normal respiratory effort, No retractions, No use of accessory muscles and clear to auscultation bilaterally AUSCULTATION: clear to auscultation bilaterally Cardio: COMMON NORMALS: regular rate, regular rhythm, S1 normal heart sound present and S2 normal heart sound present RATE: regular rate RHYTHM: regular rhythm HEART SOUNDS: S1 normal heart sound present and S2 normal heart sound present GI: COMMON NORMALS: Normal to inspection, nondistended, normoactive bowel sounds present and non-tender Extremity: COMMON NORMALS: no pedal edema Data 05/31/23 05:11 05/31/23 05:11 Micro: Microbiology 05/29/23 19:15 Blood Culture - Preliminary Blood NEGATIVE TO DATE 05/29/23 19:07 Blood Culture - Preliminary Blood NEGATIVE TO DATE A&P Assessment and plan (1) Altered mental status: Likely secondary to pneumonia, COVID-19 Continue his home dose of Seroquel and citalopram as he is already taking CT head negative for acute intracranial events. (2) COVID: Remdisivir 200mg iv x 1 followed by 100mg iv daily dexamethasone 6mg IVP daily duoneb q6h prn empiric piperacillin tazobactam Flutter valve/spirometer at bedside trend inflammatory markers including CRP Unlikely PE as patient is on Eliquis for DVT as outaptient (3) Pneumonia: LLL pneumonia and pleural effusion Zosyn empirically as above Check MRSA nares (4) End stage renal disease on dialysis: Resume hemodialysis as inpatient Nephrology consulted Plan Recent intraabdominal abscess in 03/2023: interim CT to assess for resolution IMPRESSION: 1.? Previous described pelvic abscess is decreased in size compared to previous described above. 2.? Tiny amount of residual fluid or blood products about the spleen nearly resolved. 3.? Moderate LEFT pleural effusion has increased in size with compressive atelectasis LEFT lower lobe. 4.? Seroma along the umbilical incision has improved compared to previous and nearly resolved. Small amount of residual fluid. 5.? No other significant interval changes. evaluation for underlying abdominal infection as potentially contributing Dvt ppx: Eliquis to suffice Full code per [place] records The plan for today, dialysis, antibiotic therapy, continue remdesivir, continue steroids, plan on discharging in the next 24 to 48 hours monitor respiratory status Attestations Medical Necessity Statement*: Patient requires hospitalization for pneumonia, COVID-19, Diagnoses Altered mental status R41.82 COVID U07.1 Pneumonia J18.9 End stage renal disease on dialysis N18.6; Z99.2
[2023-05-31 16:21] LABS: Glucose Point of Care 57 mg/dL (70-110)
[2023-05-31 16:44] LABS: Glucose Point of Care 93 mg/dL (70-110)
[2023-05-31] MEDS: remdesivir 100 MG in sodium chloride 0.9% (100 ml) 100 ML IV (18:27)
[2023-05-31 19:32] LABS: Glucose Point of Care 153 mg/dL (70-110)
[2023-05-31] MEDS: atorvastatin 40 mg Tablet PO (21:49)
[2023-05-31] MEDS: quetiapine 25 mg Tablet PO (21:49)
[2023-05-31] MEDS: dexamethasone 4 mg/mL INJ 6 MG IVP (23:25)
[2023-06-01] VITALS (12 sets, daily range): BP systolic 98–158; BP diastolic 65–87; PULSE 77–123; RESP 16–24; TEMP 36.4–37; O2SAT 94–96
[2023-06-01] MEDS: piperacillin-tazobactam 3.375 GM in sodium chloride 0.9% (plus) 50 ML IV ×3 (00:41→23:57)
[2023-06-01 03:47] LABS: Lymphocytes # 1.2 10^3/uL (0.8-4.8); Lymphocytes % 16.9 %; Mean Corpuscular HGB Conc 31.9 g/dL (30-55); Mean Corpuscular Hemoglobin 30.1 pg (27-33); Mean Corpuscular Volume 94.4 fl (82-101); Monocytes # 0.2 10^3/uL (0.2-0.9); Monocytes % 3.2 %; Neutrophils # 5.72 10^3/uL (1.8-7.7); Neutrophils % 79.3 %; Nucleated Red Blood Cells % 0 %; Platelet Count 343 10^3/cmm (157-399); Red Blood Count 3.39 10^6/uL (3.85-5.65); Red Cell Distribution Width 16.9 % (12.1-15.1); White Blood Count 7.21 10^3/uL (3.29-11.43)
[2023-06-01 04:15] LABS: Alanine Aminotransferase 25 U/L (0-41); Albumin Level 3.3 g/dL (3.5-5.2); Alkaline Phosphatase 100 U/L (40-130); Anion Gap 19.6 (5-19); Aspartate Amino Transferase 23 U/L (0-40); Blood Urea Nitrogen 33 mg/dL (8-23); C Reactive Protein 6.2 mg/L (0.0-4.9); Calcium 9.4 mg/dL (8.5-10.5); Carbon Dioxide 23 mmol/L (22-29); Chloride 93 mmol/L (98-107); Globulin 3.1 g/dL (1.3-4.6); Glucose 124 mg/dL (65-115); Magnesium 1.9 mg/dL (1.7-2.3); Osmolality Calculated 283 mOsm/kg (285-295); Phosphorus 3.9 mg/dL (2.5-4.5); Potassium 3.6 mmol/L (3.5-5.1); Sodium 132 mmol/L (136-145); Total Bilirubin 0.4 mg/dL (0.15-1.2); Total Protein 6.4 g/dL (6.6-8.7)
[2023-06-01 04:25] LABS: NT Pro B Type Natriuretic Pept 1121 pg/mL (0-450); Procalcitonin 0.25 ng/mL (0-0.5)
[2023-06-01 05:01] LABS: Add Urine Microscopic? YES; Bilirubin Urine Neg (Negative); Blood Urine 2+ (Negative); Glucose Urine UA Norm (Normal); Ketones Urine 1+ (Negative); Leukocyte Esterase Urine 1+ (Negative); Nitrate Urine Negative (Negative); Protein Urine 1+ (Negative); Specific Gravity, Urine 1.005 (1.005-1.030); Sulfosalicylic Acid Urine Positive (Negative); Urine Appearance Clear (CLEAR); Urine Color Yellow (Yellow); Urobilinogen Urine Neg (Negative); pH Urine 8 (5-7)
[2023-06-01 05:02] LABS: Add Urine Culture? Yes; Amorphous Sediment Urine 2+ /hpf; Bacteria Urine 2+ /hpf; RBC Urine 0-4 /hpf (0-2); Squamous Epithelial Cell Urine 0-4 /hpf (0-5)
[2023-06-01 06:32] LABS: Glucose Point of Care 135 mg/dL (70-110)
--- NOTE | 2023-06-01 08:36 | PM.PN ---
Subjective Subjective: no new complaints Medications: Reviewed: Yes Vitals/I&O/Wt Last Vital Signs Temp 98.6 F 06/01/23 04:00 Pulse 77 06/01/23 08:00 Resp 18 06/01/23 08:00 BP 130/85 06/01/23 04:00 Pulse Ox 96 06/01/23 08:00 O2 Del Method Room Air 06/01/23 08:00 05/31/23 06/01/23 06/01/23 23:59 06:59 14:59 Intake Total Output Total Balance Weight last 48 hrs Weight 80 kg Physical Exam Narrative: awake, alert s1s2 rrr per report lungs clear per report No edema Data 06/02/23 03:37 06/02/23 03:37 A&P Assessment and plan (1) End stage renal disease: Plan 1. End-stage renal disease: Per patient he receives dialysis twice a week on Tuesdays and as out pt . next HD today and recommend 3 times/week HD per TTS schedule 3. Anemia: Hemoglobin at goal 4. History of hypertension: Blood pressure controlled 5. Pneumonia and pleural effusion, on antibiotics-Zosyn 6. Positive COVID, ordered remdesivir per primary team Patient evaluated using audiovisual cart. Time spent 20 minutes Attestations Medical Necessity Statement*: per primary team Coding Level of Care Code Acute Code for [facility] Fwd Diagnoses End stage renal disease N18.6
[2023-06-01] MEDS: apixaban 5 mg Tablet PO ×2 (10:25→18:04)
[2023-06-01] MEDS: pantoprazole DR 40 mg Tablet PO (10:25)
[2023-06-01] MEDS: finasteride 5 mg Tablet PO (10:25)
[2023-06-01] MEDS: aspirin 81 mg EC Tablet PO (10:25)
--- NOTE | 2023-06-01 11:05 | PC.NURSE ---
Pt not in room but in dialysis for today.
--- NOTE | 2023-06-01 11:43 | PC.HD ---
Upon arrival to patient's room, this RN noted the patient to be speaking to his , who was not present in the room. Patient then described how his had another boyfriend. Patient not oriented to day of the week. Upon arrival to dialysis unit, patient began speaking more lucidly. Primary RN states that this patient appears to go in and out of lucidity. Patient calm and comfortable, in no distress.
--- NOTE | 2023-06-01 11:45 | PM.PN ---
Subjective Subjective: Patient was seen this morning, he is alert to person, to place, not to time, he is a bit confused, he does recognize me at times, he tells me the heel was fell out of bed yesterday, she is going to get dialysis today, he denies any shortness of breath, he is currently on room air, afebrile, normotensive, Vitals/I&O/Wt Last Vital Signs Temp 98.6 F 06/01/23 04:00 Pulse 77 06/01/23 08:00 Resp 18 06/01/23 08:00 BP 130/85 06/01/23 04:00 Pulse Ox 96 06/01/23 08:00 O2 Del Method Room Air 06/01/23 08:00 05/31/23 06/01/23 06/01/23 23:59 06:59 14:59 Intake Total 100 / 100 Output Total Balance 100 / 100 Weight last 48 hrs Weight 80 kg Physical Exam Const: COMMON NORMALS: no acute distress ORIENTATION/CONSCIOUSNESS: Yes awake, Yes oriented to person and Yes oriented to place; not oriented to time Resp: COMMON NORMALS: normal respiratory effort, No retractions, No use of accessory muscles and clear to auscultation bilaterally AUSCULTATION: clear to auscultation bilaterally Cardio: COMMON NORMALS: regular rate, regular rhythm, S1 normal heart sound present and S2 normal heart sound present RATE: regular rate RHYTHM: regular rhythm HEART SOUNDS: S1 normal heart sound present and S2 normal heart sound present GI: COMMON NORMALS: Normal to inspection, nondistended, normoactive bowel sounds present and non-tender Extremity: COMMON NORMALS: no pedal edema Neuro: SENSORIUM/ORIENTATION: Yes oriented to person, Yes oriented to place and No oriented to time Data 06/01/23 03:32 06/01/23 03:32 A&P Assessment and plan (1) Altered mental status: Likely secondary to pneumonia, COVID-19 Continue his home dose of Seroquel and citalopram as he is already taking CT head negative for acute intracranial events. (2) COVID: Continue remdesivir dexamethasone 6mg IVP daily duoneb q6h prn empiric piperacillin tazobactam Flutter valve/spirometer at bedside trend inflammatory markers including CRP Unlikely PE as patient is on Eliquis for DVT as outaptient (3) Pneumonia: LLL pneumonia and pleural effusion Zosyn empirically as above Check MRSA nares (4) End stage renal disease on dialysis: Resume hemodialysis as inpatient Nephrology consulted Plan Recent intraabdominal abscess in 03/2023: interim CT to assess for resolution IMPRESSION: 1.? Previous described pelvic abscess is decreased in size compared to previous described above. 2.? Tiny amount of residual fluid or blood products about the spleen nearly resolved. 3.? Moderate LEFT pleural effusion has increased in size with compressive atelectasis LEFT lower lobe. 4.? Seroma along the umbilical incision has improved compared to previous and nearly resolved. Small amount of residual fluid. 5.? No other significant interval changes. evaluation for underlying abdominal infection as potentially contributing Dvt ppx: Eliquis to suffice Full code per [place] records Plan for today continue to monitor mentation, or does admit, steroids, antibiotics, will receive dialysis today Attestations Medical Necessity Statement*: Patient requires hospitalization for COVID-19, pneumonia, Diagnoses Altered mental status R41.82 COVID U07.1 Pneumonia J18.9 End stage renal disease on dialysis N18.6; Z99.2
[2023-06-01] MEDS: haloperidol inj 5 mg/mL INJ 1 mL 1 MG IM (15:35)
[2023-06-01 17:25] LABS: Glucose Point of Care 214 mg/dL (70-110)
[2023-06-01] MEDS: insulin lispro 100 unit/1 mL SUBCUT (18:04)
[2023-06-01] MEDS: remdesivir 100 MG in sodium chloride 0.9% (100 ml) 100 ML IV (18:05)
[2023-06-01 21:07] LABS: Glucose Point of Care 106 mg/dL (70-110)
[2023-06-01] MEDS: quetiapine 25 mg Tablet PO (21:21)
[2023-06-01] MEDS: atorvastatin 40 mg Tablet PO (21:21)
[2023-06-01] MEDS: morphine 4 mg/mL SDV 1 mL 2 MG IVP (23:57)
[2023-06-01] MEDS: dexamethasone 4 mg/mL INJ 6 MG IVP (23:57)
[2023-06-02] VITALS (11 sets, daily range): BP systolic 102–137; BP diastolic 57–85; PULSE 72–131; RESP 15–22; TEMP 36.3–37.1; O2SAT 95–97
[2023-06-02 04:32] LABS: Hematocrit 35.9 % (37-53); Lymphocytes # 1.2 10^3/uL (0.8-4.8); Lymphocytes % 13.4 %; Mean Corpuscular HGB Conc 31.2 g/dL (30-55); Mean Corpuscular Hemoglobin 29.9 pg (27-33); Mean Platelet Volume 9.4 fL (7.4-10.4); Monocytes # 0.3 10^3/uL (0.2-0.9); Monocytes % 3.1 %; Neutrophils # 7.48 10^3/uL (1.8-7.7); Neutrophils % 82.7 %; Nucleated Red Blood Cells % 0 %; Platelet Count 380 10^3/cmm (157-399); Red Blood Count 3.74 10^6/uL (3.85-5.65); White Blood Count 9.04 10^3/uL (3.29-11.43)
[2023-06-02 04:52] LABS: Alanine Aminotransferase 22 U/L (0-41); Albumin Level 3.5 g/dL (3.5-5.2); Alkaline Phosphatase 97 U/L (40-130); Anion Gap 20.6 (5-19); Aspartate Amino Transferase 18 U/L (0-40); Blood Urea Nitrogen 20 mg/dL (8-23); C Reactive Protein 4.7 mg/L (0.0-4.9); Calcium 9.4 mg/dL (8.5-10.5); Carbon Dioxide 22 mmol/L (22-29); Chloride 95 mmol/L (98-107); Globulin 3.3 g/dL (1.3-4.6); Glucose 143 mg/dL (65-115); Magnesium 1.9 mg/dL (1.7-2.3); Osmolality Calculated 283 mOsm/kg (285-295); Phosphorus 3.1 mg/dL (2.5-4.5); Potassium 3.6 mmol/L (3.5-5.1); Sodium 134 mmol/L (136-145); Total Bilirubin 0.5 mg/dL (0.15-1.2); Total Protein 6.8 g/dL (6.6-8.7)
[2023-06-02 05:00] LABS: NT Pro B Type Natriuretic Pept 1134 pg/mL (0-450); Procalcitonin 0.27 ng/mL (0-0.5)
[2023-06-02 07:16] LABS: Glucose Point of Care 189 mg/dL (70-110)
[2023-06-02] MEDS: aspirin 81 mg EC Tablet PO (09:13)
[2023-06-02] MEDS: pantoprazole DR 40 mg Tablet PO (09:13)
[2023-06-02] MEDS: apixaban 5 mg Tablet PO ×2 (09:13→17:21)
[2023-06-02] MEDS: finasteride 5 mg Tablet PO (09:13)
[2023-06-02] MEDS: insulin lispro 100 unit/1 mL SUBCUT ×3 (09:14→20:42)
--- NOTE | 2023-06-02 10:18 | PM.PN ---
Subjective Subjective: no new complaints Medications: Reviewed: Yes Vitals/I&O/Wt Last Vital Signs Temp 98.1 F 06/02/23 07:49 Pulse 110 H 06/02/23 07:58 Resp 16 06/02/23 07:58 BP 102/80 06/02/23 07:49 Pulse Ox 97 06/02/23 07:58 O2 Del Method Room Air 06/02/23 07:58 06/01/23 06/02/23 06/02/23 22:59 06:59 14:59 Intake Total 270 / 670 50 / 720 360 / 360 Output Total 2300 Balance 269 / -1631 50 / -1581 360 / 360 Weight last 48 hrs Weight 79 kg Physical Exam Narrative: awake, alert s1s2 rrr per report lungs clear per report No edema Data 06/02/23 03:37 06/02/23 03:37 A&P Assessment and plan (1) End stage renal disease: Plan 1. End-stage renal disease: Per patient he receives dialysis twice a week on Tuesdays and as out pt .s/p hD friday and will resume TTS schedule from tomorrow 3. Anemia: Hemoglobin at goal 4. History of hypertension: Blood pressure controlled 5. Pneumonia and pleural effusion, on antibiotics-Zosyn 6. Positive COVID, ordered remdesivir per primary team Patient evaluated using audiovisual cart. Time spent 20 minutes Attestations Medical Necessity Statement*: per primary team Coding Level of Care Code Acute Code for Chg Fwd Diagnoses End stage renal disease N18.6
[2023-06-02 11:41] LABS: Glucose Point of Care 167 mg/dL (70-110)
[2023-06-02] MEDS: piperacillin-tazobactam 3.375 GM in sodium chloride 0.9% (plus) 50 ML IV ×2 (12:25→23:10)
[2023-06-02 13:30] LABS: Methicillin-Resist S.aureu PCR NOT DETECTED (NOT DETECTED)
--- NOTE | 2023-06-02 14:34 | P.PN_ITS ---
Subjective Subjective: Patient was seen this morning, he is alert to person, not to place, not to time, he is much more confused this morning, he does not recognize he is in the hospital, he can follow commands, however is confused, confused why he is here, confused on the date, no episodes of agitation Vitals/I&O/Wt Last Vital Signs Temp 98.7 F 06/02/23 11:31 Pulse 116 H 06/02/23 11:31 Resp 20 H 06/02/23 11:31 BP 109/85 06/02/23 11:31 Pulse Ox 96 06/02/23 11:31 O2 Del Method Room Air 06/02/23 11:31 06/01/23 06/02/23 06/02/23 22:59 06:59 14:59 Intake Total 270 / 670 50 / 720 600 / 600 Output Total 2300 Balance 269 / -1631 50 / -1581 600 / 600 Weight last 48 hrs Weight 79 kg Physical Exam Const: COMMON NORMALS: no acute distress and patient oriented x3 Resp: COMMON NORMALS: normal respiratory effort, No retractions, No use of accessory muscles and clear to auscultation bilaterally AUSCULTATION: clear to auscultation bilaterally Cardio: COMMON NORMALS: regular rate, regular rhythm, S1 normal heart sound present and S2 normal heart sound present RATE: regular rate RHYTHM: regular rhythm HEART SOUNDS: S1 normal heart sound present and S2 normal heart sound present GI: COMMON NORMALS: Normal to inspection, nondistended, normoactive bowel sounds present and non-tender Extremity: COMMON NORMALS: no pedal edema Neuro: COMMON NORMALS: patient oriented x3 Psych: COMMON NORMALS: mental status grossly normal Data 06/02/23 03:37 06/02/23 03:37 A&P Assessment and plan (1) Altered mental status: Likely secondary to pneumonia, COVID-19 Continue his home dose of Seroquel and citalopram as he is already taking CT head negative for acute intracranial events. (2) COVID: Continue remdesivir dexamethasone 6mg IVP daily duoneb q6h prn empiric piperacillin tazobactam Flutter valve/spirometer at bedside trend inflammatory markers including CRP Unlikely PE as patient is on Eliquis for DVT as outaptient (3) Pneumonia: LLL pneumonia and pleural effusion Zosyn empirically as above Check MRSA nararmando (4) End stage renal disease on dialysis: Resume hemodialysis as inpatient Nephrology consulted Plan Recent intraabdominal abscess in 03/2023: interim CT to assess for resolution IMPRESSION: 1.? Previous described pelvic abscess is decreased in size compared to previous described above. 2.? Tiny amount of residual fluid or blood products about the spleen nearly resolved. 3.? Moderate LEFT pleural effusion has increased in size with compressive ate lectasis LEFT lower lobe. 4.? Seroma along the umbilical incision has improved compared to previous and nearly resolved. Small amount of residual fluid. 5.? No other significant interval changes. evaluation for underlying abdominal infection as potentially contributing Dvt ppx: Eliquis to suffice Full code per [place] records Plan for today continue to monitor mentation, continue Zosyn, continue remdesivir, Attestations Medical Necessity Statement*: Patient requires hospitalization persistent encephalopathy that is likely viral related to COVID-19, pneumonia Diagnoses Altered mental status R41.82 COVID U07.1 Pneumonia J18.9 End stage renal disease on dialysis N18.6; Z99.2
[2023-06-02 16:49] LABS: Glucose Point of Care 117 mg/dL (70-110)
[2023-06-02] MEDS: acetaminophen 325 mg Tablet 650 MG PO (17:20)
[2023-06-02] MEDS: remdesivir 100 MG in sodium chloride 0.9% (100 ml) 100 ML IV (18:11)
[2023-06-02] MEDS: atorvastatin 40 mg Tablet PO (20:42)
[2023-06-02] MEDS: quetiapine 25 mg Tablet PO (20:42)
[2023-06-02 20:52] LABS: Glucose Point of Care 259 mg/dL (70-110)
--- NOTE | 2023-06-02 21:17 | PC.NURSE ---
This Rn agrees with all documentation made by SN this evening. Will continue to monitor.
[2023-06-02] MEDS: dexamethasone 4 mg/mL INJ 6 MG IVP (23:10)
[2023-06-03] VITALS (12 sets, daily range): BP systolic 105–136; BP diastolic 72–89; PULSE 98–124; RESP 16–18; TEMP 36.1–37.1; O2SAT 95–98
[2023-06-03 05:16] LABS: Lymphocytes # 0.8 10^3/uL (0.8-4.8); Lymphocytes % 8.4 %; Mean Corpuscular HGB Conc 30.9 g/dL (30-55); Mean Corpuscular Hemoglobin 29.8 pg (27-33); Mean Corpuscular Volume 96.6 fl (82-101); Monocytes # 0.3 10^3/uL (0.2-0.9); Monocytes % 3.1 %; Neutrophils # 8.45 10^3/uL (1.8-7.7); Neutrophils % 88.1 %; Nucleated Red Blood Cells % 0 %; Platelet Count 328 10^3/cmm (157-399); Red Blood Count 3.52 10^6/uL (3.85-5.65); Red Cell Distribution Width 16.8 % (12.1-15.1)
[2023-06-03 05:41] LABS: Alanine Aminotransferase 17 U/L (0-41); Albumin Level 3.3 g/dL (3.5-5.2); Alkaline Phosphatase 85 U/L (40-130); Aspartate Amino Transferase 14 U/L (0-40); Blood Urea Nitrogen 30 mg/dL (8-23); Calcium 9.3 mg/dL (8.5-10.5); Carbon Dioxide 18 mmol/L (22-29); Chloride 95 mmol/L (98-107); Globulin 2.9 g/dL (1.3-4.6); Glucose 218 mg/dL (65-115); Magnesium 1.7 mg/dL (1.7-2.3); Osmolality Calculated 291 mOsm/kg (285-295); Phosphorus 4.8 mg/dL (2.5-4.5); Sodium 134 mmol/L (136-145); Total Bilirubin 0.4 mg/dL (0.15-1.2); Total Protein 6.2 g/dL (6.6-8.7)
[2023-06-03 07:20] LABS: Glucose Point of Care 182 mg/dL (70-110)
[2023-06-03] MEDS: finasteride 5 mg Tablet PO (08:56)
[2023-06-03] MEDS: pantoprazole DR 40 mg Tablet PO (08:56)
[2023-06-03] MEDS: aspirin 81 mg EC Tablet PO (08:56)
[2023-06-03] MEDS: insulin lispro 100 unit/1 mL SUBCUT ×3 (08:56→20:44)
[2023-06-03] MEDS: apixaban 5 mg Tablet PO ×2 (08:56→18:45)
[2023-06-03 11:25] LABS: Glucose Point of Care 159 mg/dL (70-110)
[2023-06-03] MEDS: acetaminophen 325 mg Tablet 650 MG PO (12:00)
[2023-06-03] MEDS: piperacillin-tazobactam 3.375 GM in sodium chloride 0.9% (plus) 50 ML IV (12:02)
--- NOTE | 2023-06-03 13:44 | PM.PN ---
Subjective Subjective: No new complaints Medications: Reviewed: Yes Vitals/I&O/Wt Last Vital Signs Temp 98.0 F 06/03/23 12:00 Pulse 113 H 06/03/23 12:00 Resp 18 06/03/23 12:00 BP 113/74 06/03/23 12:00 Pulse Ox 97 06/03/23 12:00 O2 Del Method Room Air 06/03/23 12:00 06/02/23 06/03/23 06/03/23 22:59 06:59 14:59 Intake Total 790 / 1390 50 / 1440 360 / 360 Output Total 0 / 0 Balance 790 / 1390 50 / 1440 360 / 360 Weight last 48 hrs Weight 79 kg Physical Exam Narrative: awake, alert s1s2 rrr per report lungs clear per report No edema Data 06/03/23 05:05 06/03/23 05:05 Micro: Microbiology 06/01/23 04:00 Urine Culture - Final Urine,Clean Catch Enterococcus faecium vre A&P Assessment and plan (1) End stage renal disease: Plan 1. End-stage renal disease: TTS schedule ,HD today 3. Anemia: Hemoglobin at goal 4. History of hypertension: Blood pressure controlled 5. Pneumonia and pleural effusion, on antibiotics-Zosyn 6. Positive COVID, ordered remdesivir per primary team Patient evaluated using audiovisual cart. Time spent 20 minutes Attestations Medical Necessity Statement*: per medicine team Coding Level of Care Code Acute Code for Chg Fwd Diagnoses End stage renal disease N18.6
--- NOTE | 2023-06-03 14:47 | PM.PN ---
Subjective Subjective: Patient was seen this morning, upon entering the room, patient was speaking to himself, patient does not recognize that I am his physician, he is alert to person, not to place, not to time he can follow commands such as squeezing my fingers, wiggling his toes he is able to smile for me, no focal neurologic deficits, patient is encephalopathic he is afebrile overnight, ? I was paged by nursing staff that patient's urine culture showed VRE, he is on Zosyn, will stop Zosyn, switch to Zyvox, continue to monitor his mentation as inpatient,, possibly his mentation could be from VRE UTI Vitals/I&O/Wt Last Vital Signs Temp 98.0 F 06/03/23 12:00 Pulse 113 H 06/03/23 12:00 Resp 18 06/03/23 12:00 BP 113/74 06/03/23 12:00 Pulse Ox 97 06/03/23 12:00 O2 Del Method Room Air 06/03/23 12:00 06/02/23 06/03/23 06/03/23 22:59 06:59 14:59 Intake Total 790 / 1390 50 / 1440 840 / 840 Output Total 0 / 0 Balance 790 / 1390 50 / 1440 840 / 840 Physical Exam Const: COMMON NORMALS: no acute distress EXAM LIMITATIONS: altered mental status ORIENTATION/CONSCIOUSNESS: Yes awake and Yes oriented to person; not oriented to place and not oriented to time Resp: COMMON NORMALS: normal respiratory effort, No retractions, No use of accessory muscles and clear to auscultation bilaterally AUSCULTATION: clear to auscultation bilaterally Cardio: COMMON NORMALS: regular rate, regular rhythm, S1 normal heart sound present and S2 normal heart sound present RATE: regular rate RHYTHM: regular rhythm HEART SOUNDS: S1 normal heart sound present and S2 normal heart sound present GI: COMMON NORMALS: Normal to inspection, nondistended, normoactive bowel sounds present and non-tender Extremity: COMMON NORMALS: no pedal edema Neuro: SENSORIUM/ORIENTATION: Yes oriented to person, No oriented to place and No oriented to time Psych: COMMON NORMALS: mental status grossly normal Data 06/03/23 05:05 06/03/23 05:05 Micro: Microbiology 11/05/23 04:00 Urine Culture - Final Urine,Clean Catch Enterococcus faecium vre A&P Assessment and plan (1) Altered mental status: Likely secondary to pneumonia, COVID-19, VRE UTI Continue his home dose of Seroquel and citalopram as he is already taking CT head negative for acute intracranial events. (2) COVID: Continue remdesivir dexamethasone 6mg IVP daily duoneb q6h prn Has completed Zosyn, switched to doxycycline Flutter valve/spirometer at bedside trend inflammatory markers including CRP Unlikely PE as patient is on Eliquis for DVT as outaptient (3) Pneumonia: LLL pneumonia and pleural effusion , Switch to doxycycline Check MRSA nares (4) End stage renal disease on dialysis: Resume hemodialysis as inpatient Nephrology consulted (5) VRE (vancomycin-resistant Enterococci) infection: VRE UTI, as a possible persistent etiology behind patient's persistent encephalopathy, start IV Zyvox (6) UTI (urinary tract infection): (7) End stage renal disease: Plan Recent intraabdominal abscess in 03/2023: interim CT to assess for resolution IMPRESSION: 1.? Previous described pelvic abscess is decreased in size compared to previous described above. 2.? Tiny amount of residual fluid or blood products about the spleen nearly resolved. 3.? Moderate LEFT pleural effusion has increased in size with compressive atelectasis LEFT lower lobe. 4.? Seroma along the umbilical incision has improved compared to previous and nearly resolved. Small amount of residual fluid. 5.? No other significant interval changes. evaluation for underlying abdominal infection as potentially contributing Dvt ppx: Eliquis to suffice Full code per [place] records Plan for today continue to monitor mentation, start IV Zyvox, last dose of remdesivir, doxycycline continue to monitor mentation Attestations Medical Necessity Statement*: Patient requires hospitalization for persistent encephalopathy, VRE UTI as an etiology Diagnoses Altered mental status R41.82 COVID U07.1 Pneumonia J18.9 End stage renal disease on dialysis N18.6; Z99.2 VRE (vancomycin-resistant Enterococci) infection A49.1; Z16.21 UTI (urinary tract infection) N39.0 End stage renal disease N18.6
--- NOTE | 2023-06-03 15:00 | PC.NURSE ---
off floor for dialysis
--- NOTE | 2023-06-03 15:26 | PC.HD ---
Patient remains somewhat confused. When this RN went to patient's room to bring him to dialysis, he was irritated, as he believed he had been waiting for days for his first dialysis treatment. This RN explained that he has had prior treatments, but patient was not convinced.
--- NOTE | 2023-06-03 15:58 | PC.OT ---
OT tx attempted. Pt off the floor in dialysis at this time. Will attempt tx again tomorrow.
[2023-06-03] MEDS: ondansetron 2 mg/ML SDV 2 mL 4 MG IVP (16:16)
--- NOTE | 2023-06-03 18:28 | PC.NURSE ---
Patient back from dialysis. They were able to remove 2.5 liters. Patient is alert and resting in bed.
[2023-06-03] MEDS: doxycycline 100 mg Tablet PO (18:45)
[2023-06-03] MEDS: remdesivir 100 MG in sodium chloride 0.9% (100 ml) 100 ML IV (18:45)
[2023-06-03 20:17] LABS: Glucose Point of Care 228 mg/dL (70-110)
[2023-06-03] MEDS: quetiapine 25 mg Tablet PO (20:46)
[2023-06-03] MEDS: linezolid premix 600 MG/300 ML PREMIX 300 MG IV (20:47)
[2023-06-03] MEDS: atorvastatin 40 mg Tablet PO (21:23)
--- NOTE | 2023-06-03 22:22 | PC.NURSE ---
Student RN performing care and medication administrations. This RN agrees with all documentation presently. Will continue to monitor.
[2023-06-04] VITALS (13 sets, daily range): BP systolic 98–122; BP diastolic 69–81; PULSE 79–116; RESP 16–22; TEMP 36.6–37.3; O2SAT 94–98
[2023-06-04] MEDS: dexamethasone 4 mg/mL INJ 6 MG IVP (01:06)
[2023-06-04 06:22] LABS: Glucose Point of Care 106 mg/dL (70-110)
--- NOTE | 2023-06-04 07:48 | PM.PN ---
Subjective Subjective: s/p HD yesterday Medications: Reviewed: Yes Vitals/I&O/Wt Last Vital Signs Temp 98.8 F 06/04/23 07:37 Pulse 116 H 06/04/23 07:37 Resp 21 H 06/04/23 07:37 BP 113/75 06/04/23 07:37 Pulse Ox 96 06/04/23 07:37 O2 Del Method Room Air 06/04/23 07:37 06/03/23 06/04/23 06/04/23 22:59 06:59 14:59 Intake Total 850 / 1690 0 / 1690 Output Total 2800 / 2800 0 / 2800 Balance -1950 / -1110 0 / -1110 Weight last 48 hrs Weight 79 kg Physical Exam Narrative: awake, alert s1s2 rrr per report lungs clear per report No edema Data 06/04/23 08:40 06/04/23 08:40 Micro: Microbiology 05/29/23 19:15 Blood Culture - Final Blood NO GROWTH AFTER 5 DAYS 05/29/23 19:07 Blood Culture - Final Blood NO GROWTH AFTER 5 DAYS 06/01/23 04:00 Urine Culture - Final Urine,Clean Catch Enterococcus faecium vre A&P Assessment and plan (1) End stage renal disease: Plan 1. End-stage renal disease: TTS schedule ,HD tomorrow 3. Anemia: Hemoglobin at goal 4. History of hypertension: Blood pressure controlled 5. Pneumonia and pleural effusion, on antibiotics-Zosyn 6. Positive COVID, ordered remdesivir per primary team Patient evaluated using audiovisual cart. Time spent 20 minutes Attestations Medical Necessity Statement*: per medicien team Coding Level of Care Code Acute Code for Chg Fwd Diagnoses End stage renal disease N18.6
[2023-06-04 08:50] LABS: Basophils % 0.1 %; Eosinophils # 0.2 10^3/uL (0.0-0.8); Eosinophils % 1.6 %; Hematocrit 36.5 % (37-53); Lymphocytes % 25.5 %; Mean Corpuscular HGB Conc 32.1 g/dL (30-55); Mean Corpuscular Hemoglobin 30.5 pg (27-33); Mean Corpuscular Volume 95.3 fl (82-101); Mean Platelet Volume 9.5 fL (7.4-10.4); Monocytes # 0.9 10^3/uL (0.2-0.9); Monocytes % 7.3 %; Neutrophils # 7.75 10^3/uL (1.8-7.7); Neutrophils % 64.8 %; Nucleated Red Blood Cells % 0 %; Platelet Count 353 10^3/cmm (157-399); Red Blood Count 3.83 10^6/uL (3.85-5.65); Red Cell Distribution Width 16.6 % (12.1-15.1); White Blood Count 11.94 10^3/uL (3.29-11.43)
[2023-06-04] MEDS: pantoprazole DR 40 mg Tablet PO (08:51)
[2023-06-04] MEDS: doxycycline 100 mg Tablet PO ×2 (08:52→18:00)
[2023-06-04] MEDS: aspirin 81 mg EC Tablet PO (08:52)
[2023-06-04] MEDS: apixaban 5 mg Tablet PO ×2 (08:52→18:00)
[2023-06-04] MEDS: finasteride 5 mg Tablet PO (08:52)
[2023-06-04 09:03] LABS: Alanine Aminotransferase 20 U/L (0-41); Albumin Level 3.5 g/dL (3.5-5.2); Alkaline Phosphatase 93 U/L (40-130); Aspartate Amino Transferase 15 U/L (0-40); Blood Urea Nitrogen 18 mg/dL (8-23); Calcium 9.2 mg/dL (8.5-10.5); Carbon Dioxide 22 mmol/L (22-29); Chloride 96 mmol/L (98-107); Globulin 3.1 g/dL (1.3-4.6); Glucose 113 mg/dL (65-115); Magnesium 1.7 mg/dL (1.7-2.3); Osmolality Calculated 281 mOsm/kg (285-295); Phosphorus 3.9 mg/dL (2.5-4.5); Sodium 134 mmol/L (136-145); Total Bilirubin 0.3 mg/dL (0.15-1.2); Total Protein 6.6 g/dL (6.6-8.7)
[2023-06-04 09:04] LABS: Anion Gap 19.5 (5-19); Potassium 3.5 mmol/L (3.5-5.1)
[2023-06-04] MEDS: linezolid premix 600 MG/300 ML PREMIX 300 MG IV ×2 (09:35→20:45)
[2023-06-04] MEDS: insulin lispro 100 unit/1 mL SUBCUT ×2 (11:50→18:00)
[2023-06-04 11:58] LABS: Glucose Point of Care 217 mg/dL (70-110)
--- NOTE | 2023-06-04 16:14 | P.PN_ITS ---
Subjective Subjective: Patient was seen this morning, he is alert and awake, follows commands, alert to person, to place, to time, he knows the president, does report generalized weakness, no shortness of breath, no abdominal pain, no flank pain, Vitals/I&O/Wt Last Vital Signs Temp 98.2 F 06/04/23 16:00 Pulse 108 H 06/04/23 16:00 Resp 20 H 06/04/23 16:00 BP 105/80 06/04/23 16:00 Pulse Ox 96 06/04/23 16:00 O2 Del Method Room Air 06/04/23 16:00 06/04/23 06/04/23 06/04/23 06:59 14:59 22:59 Intake Total 0 / 1690 1120 / 1120 Output Total 0 / 2800 Balance 0 / -1110 1120 / 1120 Weight last 48 hrs Weight 79 kg Physical Exam Const: COMMON NORMALS: no acute distress ORIENTATION/CONSCIOUSNESS: Yes awake, Yes oriented to person and Yes oriented to place; not oriented to time Resp: COMMON NORMALS: normal respiratory effort, No retractions, No use of accessory muscles and clear to auscultation bilaterally AUSCULTATION: clear to auscultation bilaterally Cardio: COMMON NORMALS: regular rate, regular rhythm, S1 normal heart sound present and S2 normal heart sound present RATE: regular rate RHYTHM: regular rhythm HEART SOUNDS: S1 normal heart sound present and S2 normal heart sound present GI: COMMON NORMALS: Normal to inspection, nondistended, normoactive bowel sounds present and non-tender Extremity: COMMON NORMALS: no pedal edema Neuro: SENSORIUM/ORIENTATION: Yes oriented to person, Yes oriented to place and No oriented to time Psych: COMMON NORMALS: mental status grossly normal Data 06/04/23 08:40 06/04/23 08:40 Micro: Microbiology 05/29/23 19:15 Blood Culture - Final Blood NO GROWTH AFTER 5 DAYS 05/29/23 19:07 Blood Culture - Final Blood NO GROWTH AFTER 5 DAYS 06/01/23 04:00 Urine Culture - Final Urine,Clean Catch Enterococcus faecium vre A&P Assessment and plan (1) Altered mental status: Likely secondary to pneumonia, COVID-19, VRE UTI Continue his home dose of Seroquel and citalopram as he is already taking CT head negative for acute intracranial events. (2) COVID: completed remdesivir dexamethasone 6mg IVP daily, completed duoneb q6h prn Has completed Zosyn, switched to doxycycline Flutter valve/spirometer at bedside trend inflammatory markers including CRP Unlikely PE as patient is on Eliquis for DVT as outaptient (3) Pneumonia: LLL pneumonia and pleural effusion , Switch to doxycycline Check MRSA nares (4) End stage renal disease on dialysis: Resume hemodialysis as inpatient Nephrology consulted (5) VRE (vancomycin-resistant Enterococci) infection: VRE UTI, as a possible persistent etiology behind patient's persistent encephalopathy, start IV Zyvox (6) UTI (urinary tract infection): (7) End stage renal disease: Plan Recent intraabdominal abscess in 03/2023: interim CT to assess for resolution IMPRESSION: 1.? Previous described pelvic abscess is decreased in size compared to previous described above. 2.? Tiny amount of residual fluid or blood products about the spleen nearly resolved. 3.? Moderate LEFT pleural effusion has increased in size with compressive atelectasis LEFT lower lobe. 4.? Seroma along the umbilical incision has improved compared to previous and ne karlee resolved. Small amount of residual fluid. 5.? No other significant interval changes. evaluation for underlying abdominal infection as potentially contributing Dvt ppx: Eliquis to suffice Full code per [place] records Plan for today continue to monitor mentation,coutinue IV Zyvox, Attestations Medical Necessity Statement*: Patient requires hospitalization for a VRE UTI, requiring Zyvox Diagnoses Altered mental status R41.82 COVID U07.1 Pneumonia J18.9 End stage renal disease on dialysis N18.6; Z99.2 VRE (vancomycin-resistant Enterococci) infection A49.1; Z16.21 UTI (urinary tract infection) N39.0 End stage renal disease N18.6
[2023-06-04 16:19] LABS: Glucose Point of Care 183 mg/dL (70-110)
[2023-06-04] MEDS: atorvastatin 40 mg Tablet PO (20:45)
[2023-06-04] MEDS: quetiapine 25 mg Tablet PO (20:45)
[2023-06-04 20:54] LABS: Glucose Point of Care 57 mg/dL (70-110)
[2023-06-04 23:47] LABS: Glucose Point of Care 213 mg/dL (70-110)
[2023-06-05 03:57] VITALS: BP 112/71; PULSE 105; RESP 14; TEMP 36.6; O2SAT 97
[2023-06-05 06:00] VITALS: PULSE 106
[2023-06-05 06:45] LABS: Glucose Point of Care 108 mg/dL (70-110)
[2023-06-05 07:57] VITALS: PULSE 100; RESP 16; O2SAT 96
[2023-06-05 08:53] VITALS: BP 122/78; PULSE 106; RESP 18; TEMP 37.1; O2SAT 97
[2023-06-05 10:01] LABS: Basophils % 0.1 %; Eosinophils # 0.5 10^3/uL (0.0-0.8); Eosinophils % 3.5 %; Hematocrit 37.8 % (37-53); Lymphocytes # 2.9 10^3/uL (0.8-4.8); Lymphocytes % 22.2 %; Mean Corpuscular Hemoglobin 30.2 pg (27-33); Mean Corpuscular Volume 97.4 fl (82-101); Mean Platelet Volume 9.5 fL (7.4-10.4); Monocytes # 0.8 10^3/uL (0.2-0.9); Monocytes % 6.5 %; Neutrophils # 8.72 10^3/uL (1.8-7.7); Neutrophils % 67.1 %; Nucleated Red Blood Cells % 0 %; Platelet Count 353 10^3/cmm (157-399); Red Blood Count 3.88 10^6/uL (3.85-5.65); Red Cell Distribution Width 16.2 % (12.1-15.1); White Blood Count 12.99 10^3/uL (3.29-11.43)
[2023-06-05 10:22] LABS: Alanine Aminotransferase 17 U/L (0-41); Albumin Level 3.6 g/dL (3.5-5.2); Alkaline Phosphatase 91 U/L (40-130); Anion Gap 19.6 (5-19); Aspartate Amino Transferase 11 U/L (0-40); Blood Urea Nitrogen 31 mg/dL (8-23); Calcium 9.2 mg/dL (8.5-10.5); Carbon Dioxide 21 mmol/L (22-29); Chloride 94 mmol/L (98-107); Globulin 2.4 g/dL (1.3-4.6); Glucose 153 mg/dL (65-115); Magnesium 1.6 mg/dL (1.7-2.3); Osmolality Calculated 282 mOsm/kg (285-295); Phosphorus 3.7 mg/dL (2.5-4.5); Potassium 3.6 mmol/L (3.5-5.1); Sodium 131 mmol/L (136-145); Total Bilirubin 0.3 mg/dL (0.15-1.2)
--- NOTE | 2023-06-05 10:42 | P.DS_ITS ---
Discharge Providers Date of Admission: 05/29/23 23:15 Date of Discharge: June 05, 2023 Attending Provider at Admission: Baljit Marcelo MD Attending Provider at Discharge: Felix Hernandez MD Primary Care Provider: Ramiro Villavicencio MD Diagnoses at Discharge Discharge Diagnosis (1) Altered mental status: Status: Acute (2) COVID: Status: Acute (3) Pneumonia: Status: Acute (4) End stage renal disease on dialysis: Status: Inactive (5) VRE (vancomycin-resistant Enterococci) infection: Status: Acute (6) UTI (urinary tract infection): Status: Acute (7) End stage renal disease: Status: Acute Reason for Visit Reason for Visit: ams Hospital Course Hospital Course Jhon Marcos is a 78 year old male ?with past medical history of myocardial infarction diabetes mellitus status post stroke hypertension hyperlipidemia and BPH, recent complicated admission here in early March for perforated diverticulitis with intra-abdominal abscess managed by ex lap and then with prolonged antibiotic course.? That hospital course was complicated by development of sepsis, perisplenic fluid collection, intra-abdominal abscess, C. difficile colitis, A-fib with RVR, DVT and NSTEMI with cardiomyopathy EF down to 40 to 45%.? He also had CKD prior to that episode and was planned to be started on peritoneal dialysis, however this was eventually deferred due to the perforated diverticulitis and instead patient was started on hemodialysis which she has continued.? His hospital course had also been complicated by delirium, encephalopathy.? He improved with regards to all of his symptoms and has been residing in a intermediate facility since then.? He has continued to have intermittent confusion and changes in mentation, requiring further admission in April 2023 at which time it was thought to be related to a possible UTI versus stroke.? MRI of the head was performed and was unremarkable for acute infarct.? Uremia was thought to be contributing.Per discussion with facility patient has been noted to be sundowning in the evenings with agitation. He presented to the emergency room today from intermediate facility due to worsening mentation.? Patient was very combative agitated, refusing interventions all through the day including his scheduled dialysis which she gets on Friday.? He recently tested positive for COVID-19 and had a UTI however was refusing all his medications. On arrival patient was confused, disoriented unable to participate in any history.? Per his daughter who was at his bedside patient had been doing well recently, is alert awake and oriented most of the times but has behavioral problems where he can be aggressive and agitated. He required administration of Haldol upon being transferred to [facility] due to agitation following which he has been calm and now resting comfortably. Review of records show he is on seroquel at night time. Patient was admitted to [facility] for COVID-19 pneumonia, received 5 days of remdesivir, Decadron, overall clinically improved, discharged to intermediate facility continue facemask, hand wash, albuterol as needed for shortness of breath, For his left lower lobe pneumonia, received IV antibiotics as inpatient, overall clinically improved, completed antibiotic therapy as inpatient Patient was found to have VRE UTI treated with IV Zyvox, discharged with 7 days of p.o. Zyvox we will check CBC and CMP in 1 week, For his acute encephalopathy likely multifactorial from pneumonia, COVID-19, VRE UTI, prolonged hospitalization, overall clinically improved, on discharge alert to person, to place, knows the month, knows the year, knows the president, can follow commands, has intermittent episodes of confusion, should be monitored as outpatient Physical Exam Const: COMMON NORMALS: no acute distress ORIENTATION/CONSCIOUSNESS: Yes awake, Yes oriented to person and Yes oriented to place; not oriented to time Resp: COMMON NORMALS: normal respiratory effort, No retractions, No use of accessory muscles and clear to auscultation bilaterally AUSCULTATION: clear to auscultation bilaterally Cardio: COMMON NORMALS: regular rate, regular rhythm, S1 normal heart sound present and S2 normal heart sound present RATE: regular rate RHYTHM: regular rhythm HEART SOUNDS: S1 normal heart sound present and S2 normal heart sound present GI: COMMON NORMALS: Normal to inspection, nondistended, normoactive bowel sounds present and non-tender Extremity: COMMON NORMALS: no pedal edema Neuro: SENSORIUM/ORIENTATION: Yes oriented to person, Yes oriented to place and No oriented to time Psych: COMMON NORMALS: mental status grossly normal Discharge Data Studies Completed and Pending Completed Studies During Hospitalization Category Date Time Status CT abdomen pelvis w con* [id number] Routine Cat Scan 05/30/23 23:[address] chest wo con [id number] Stat Cat Scan 05/29/23 20:[address] head wo con* [id number] Stat Cat Scan 05/29/23 18:45 Completed XR chest 1V portable [id number] Stat Exams 05/29/23 18:45 Completed Pending at discharge Category Date Time Status Clostridium Difficile PCR Routine Lab 06/04/23 10:04 Received Comprehensive Metabolic Panel AM LABS Lab 06/05/23 09:45 Results Magnesium AM LABS Lab 06/05/23 09:45 Results Phosphorus AM LABS Lab 06/05/23 09:45 Results Radiology Impressions Chest X-Ray 05/29/23 18:45 IMPRESSION: Large left-sided pleural effusion redemonstrated. Underlying pulmonary consolidation can not be excluded. Head CT 05/29/23 18:45 IMPRESSION: 1. No acute intracranial abnormality. 2. Small-vessel ischemic disease. Chest CT 05/29/23 20:31 IMPRESSION: 1. Large left-sided pleural effusion with near-complete collapse of the left lower lobe and significant atelectatic changes in the left upper lobe. 2. Atherosclerosis. Coronary artery disease. 3. There is a 2.2 cm hypodense lesion along the posterolateral cortex of the right kidney measuring 55 Hounsfield units and a 1.6 cm hypodense lesion in the superior pole of the left kidney measuring up to 39 Hounsfield units. These do not meet imaging criteria for a simple cyst and a three-phase renal CT or renal MRI may be of benefit to more fully characterize this finding. Laboratory Results WBC 12.99 10^3/uL (3.29-11.43) H 06/05/23 09:45 RBC 3.88 10^6/uL (3.85-5.65) 06/05/23 09:45 Hgb 11.70 g/dL (11.27-16.99) 06/05/23 09:45 Hct 37.8 % (37-53) 06/05/23 09:45 MCV 97.4 fl (82-101) 06/05/23 09:45 MCH 30.2 pg (27-33) 06/05/23 09:45 MCHC 31.0 g/dL (30-55) 06/05/23 09:45 RDW 16.2 % (12.1-15.1) H 06/05/23 09:45 Plt Count 353 10^3/cmm (157-399) 06/05/23 09:45 MPV 9.5 fL (7.4-10.4) 06/05/23 09:45 Neut % (Auto) 67.1 % 06/05/23 09:45 Lymph % (Auto) 22.2 % 06/05/23 09:45 [place] % (Auto) 6.5 % 06/05/23 09:45 Eos % (Auto) 3.5 % 06/05/23 09:45 Baso % (Auto) 0.1 % 06/05/23 09:45 Neut # (Auto) 8.72 10^3/uL (1.8-7.7) H 06/05/23 09:45 Lymph # (Auto) 2.9 10^3/uL (0.8-4.8) 06/05/23 09:45 [place] # (Auto) 0.8 10^3/uL (0.2-0.9) 06/05/23 09:45 Eos # (Auto) 0.5 10^3/uL (0.0-0.8) 06/05/23 09:45 Baso # (Auto) 0.0 10^3/uL (0.0-0.1) 06/05/23 09:45 Nucleated RBC % (auto) 0 % 06/05/23 09:45 Nucleated RBCs # 0.0 /100WBC 06/05/23 09:45 PT 21.60 SECONDS (12.1-14.9) H 05/29/23 18:39 INR 1.81 (0.8-1.2) H 05/29/23 18:39 APTT 37.2 SECONDS (23.9-36.7) H 05/29/23 18:39 Sodium 134 mmol/L (136-145) L 06/04/23 08:40 Potassium 3.6 mmol/L (3.5-5.1) 06/05/23 09:45 Chloride 96 mmol/L (98-107) L 06/04/23 08:40 Carbon Dioxide 22 mmol/L (22-29) 06/04/23 08:40 Anion Gap 19.5 (5-19) H 06/04/23 08:40 BUN 18 mg/dL (8-23) 06/04/23 08:40 Creatinine 4.4 mg/dL (0.7-1.2) H 06/04/23 08:40 GFR Calculation Not Reportable 06/05/23 09:45 Glucose 113 mg/dL (65-115) 06/04/23 08:40 POC Glucose 108 mg/dL (70-110) 06/05/23 06:42 Calculated Osmolality 281 mOsm/kg (285-295) L 06/04/23 08:40 Lactic Acid 3.2 mmol/L (0.5-2.2) H 05/29/23 19:07 Lactic Acid (Sepsis) 1.7 mmol/L (0.5-2.2) 05/29/23 00:11 Calcium 9.2 mg/dL (8.5-10.5) 06/05/23 09:45 Phosphorus 3.7 mg/dL (2.5-4.5) 06/05/23 09:45 Magnesium 1.7 mg/dL (1.7-2.3) 06/04/23 08:40 Total Bilirubin 0.3 mg/dL (0.15-1.2) 06/05/23 09:45 AST 11 U/L (0-40) 06/05/23 09:45 ALT 17 U/L (0-41) 06/05/23 09:45 Alkaline Phosphatase 91 U/L (40-130) 06/05/23 09:45 C-Reactive Protein 4.7 mg/L (0.0-4.9) 06/02/23 03:37 NT-Pro-B Natriuret Pep 1134 pg/mL (0-450) H 06/02/23 03:37 Total Protein 6.6 g/dL (6.6-8.7) 06/04/23 08:40 Albumin 3.6 g/dL (3.5-5.2) 06/05/23 09:45 Globulin 2.4 g/dL (1.3-4.6) 06/05/23 09:45 Procalcitonin 0.27 ng/mL (0-0.5) 06/02/23 03:37 Urine Color Yellow (Yellow) 06/01/23 04:00 Urine Appearance Clear (CLEAR) 06/01/23 04:00 Urine pH 8 (5-7) H 06/01/23 04:00 Ur Specific [place] 1.005 (1.005-1.030) 06/01/23 04:00 Urine Protein 1+ (Negative) H 06/01/23 04:00 Urine Glucose (UA) Norm (Normal) 06/01/23 04:00 Urine Ketones 1+ (Negative) H 06/01/23 04:00 Urine Blood 2+ (Negative) H 06/01/23 04:00 Urine Nitrate Negative (Negative) 06/01/23 04:00 Urine Bilirubin Neg (Negative) 06/01/23 04:00 Prot Sulfosalicylic Acd Positive (Negative) 06/01/23 04:00 Urine Urobilinogen Neg mg/dL (Negative) 06/01/23 04:00 Ur Leukocyte Esterase 1+ (Negative) H 06/01/23 04:00 Urine RBC 0-4 /hpf (0-2) H 06/01/23 04:00 Urine WBC 10-15 /hpf (0-5) H 06/01/23 04:00 Ur Squamous Epith Cells 0-4 /hpf (0-5) H 06/01/23 04:00 Amorphous Sediment 2+ /hpf 06/01/23 04:00 Urine Bacteria 2+ /hpf (NONE) H 06/01/23 04:00 Urine Yeast 1+ /hpf H 06/01/23 04:00 Hep Bs Antigen Non-reactive (Nonreactive) 05/30/23 08:20 Hep Bs Antibody < 3.5 (11.5-1000) L 05/30/23 08:20 Influenza Type A Ag negative (Negative) 05/29/23 20:38 Influenza Type B Ag negative (Negative) 05/29/23 20:38 SARS-CoV-2 Ag (Rapid) positive (Negative) H 05/29/23 20:38 MRSA (PCR) Not detected (NOT DETECTED) 05/30/23 20:10 Vitals Last Vital Signs Temp 98.7 F 06/05/23 08:53 Pulse 106 H 06/05/23 08:53 Resp 18 06/05/23 08:53 BP 122/78 06/05/23 08:53 Pulse Ox 97 06/05/23 08:53 O2 Del Method Room Air 06/05/23 08:53 Discharge Plan Discharge Patient Disposition: Home Condition: Stable Prescriptions: New linezolid [Zyvox] 600 mg tablet 600 mg PO BID 7 Days Qty: 14 0RF Continued nitroglycerin [Nitrostat] 0.4 mg tablet, sublingual 0.4 mg SUBLINGUAL Q5M PRN (Reason: Chest Pain) atorvastatin 40 mg tablet 40 mg PO DAILY@2100 ferrous fumarate 325 mg (106 mg iron) tablet 325 mg PO DAILY finasteride 5 mg tablet 5 mg PO DAILY albuterol sulfate [Ventolin HFA] 90 mcg/actuation HFA aerosol inhaler 1 inh inhalation QID PRN (Reason: shortness of breath or wheezing) Qty: 8.5 3RF alprazolam 0.25 mg tablet 0.25 mg PO DAILY PRN (Reason: Anxiety) bisacodyl 10 mg Suppository 10 mg [place] DAILY PRN (Reason: Constipation) quetiapine [Seroquel] 25 mg tablet 25 mg PO BEDTIME mecobalamin (vitamin B12) [B12 Active] 1,000 mcg tablet,chewable 1,000 mcg PO DAILY Qty: 60 0RF apixaban 5 mg Tablet 5 mg PO BID calcitriol 0.25 mcg capsule See Rx Instructions .ROUTE .COMPLEX Rx Instructions: 0.25 mcg orally 3 times weekly on Friday, Friday, Friday cholecalciferol (vitamin D3) [Vitamin D3] 50 mcg (2,000 unit) Tablet 100 mcg PO DAILY pantoprazole 40 mg tablet,delayed release (DR/EC) 40 mg PO DAILY acyclovir 200 mg capsule 200 mg PO 5XD PRN (Reason: outbreaks) insulin aspart U-100 [Novolog FlexPen U-100 Insulin] 100 unit/mL (3 mL) insulin pen See Rx Instructions .ROUTE .COMPLEX Qty: 15 0RF Rx Instructions: Inject, subcut, 3 times daily, after meals, based on low-dose sliding scale. BS 141-180= 0ML, 181-220= 2ML, 221-260= 4ML, 261-300= 6ML, 301-350= 8ML, 351- 400= 10ML, 401-450= 12ML, 451-500= 14ML. citalopram 30 mg Capsule 30 mg PO DAILY magnesium hydroxide [Milk of Magnesia] 400 mg/5 mL Suspension 30 ml PO DAILY PRN (Reason: Constipation) Fleet Enema 19-7 gram/118 mL Enema 118 ml [place] DAILY PRN (Reason: Constipation) cyanocobalamin (vitamin B-12) 1,000 mcg/mL Solution 1,000 mcg SUBCUT Q1M Rx Instructions: STARTING ON AND ENDING ON THE 6TH EVERY MONTH aspirin 81 mg Tablet,Delayed Release (Dr/Ec) 81 mg PO DAILY Discharge Orders: Discharge Order (Routine); Ordered 06/05/23 Ordered By: Felix Hernandez Referrals: Ramiro Villavicencio MD [Primary Care Provider] - Discharge Diet: Advance as tolerated Discharge Activity: Resume usual activity Patient Instructions: Dialysis Diet (DC), Hemodialysis (DC), Opioid Safety Activity Restrictions/Additional Instructions: - Please monitor mentation closely, ?, For COVID-19 continue facemask, hand wash, monitor for fevers, ? Left lower lobe pneumonia, continue breathing treatments, monitor respiratory status, ? For VRE UTI, discharged on 7 days of Zyvox ? Repeat CBC and CMP in 1 week Discharge Attestations Time Spent in Discharge Care*: greater than 30 min Status at Discharge: Cognitive status at discharge: cognitively intact , Quality Metrics Clinical Quality Measures [ No reported AMI, CVA or VTE this stay] Coding Level of Care Code 18887 Total time (in minutes) for Discharge: 45 Diagnoses Altered mental status R41.82 COVID U07.1 Pneumonia J18.9 End stage renal disease on dialysis N18.6; Z99.2 VRE (vancomycin-resistant Enterococci) infection A49.1; Z16.21 UTI (urinary tract infection) N39.0 End stage renal disease N18.6
[2023-06-05] MEDS: doxycycline 100 mg Tablet PO (10:48)
[2023-06-05] MEDS: apixaban 5 mg Tablet PO (10:48)
[2023-06-05] MEDS: linezolid premix 600 MG/300 ML PREMIX 300 MG IV (10:48)
[2023-06-05] MEDS: finasteride 5 mg Tablet PO (10:49)
[2023-06-05] MEDS: pantoprazole DR 40 mg Tablet PO (10:49)
[2023-06-05] MEDS: aspirin 81 mg EC Tablet PO (10:49)
[2023-06-05 11:59] LABS: Glucose Point of Care 214 mg/dL (70-110)
[2023-06-05 12:36] VITALS: BP 126/78; PULSE 100; RESP 18; TEMP 36.5; O2SAT 97
[2023-06-05] MEDS: insulin lispro 100 unit/1 mL SUBCUT (12:46)
== END 2023-06-05 13:30 | disposition skilled nursing facility (03) | DRG 177 ==
LOC: ER 21:04 → CSU 21:23 → MEDSURG 06-04 22:00
PROVIDERS: Hospitalist; Student in an Organized Health Care Education/Training Program; Admitting Provider Student in an Organized Health Care Education/Training Program; Emergency Provider Internal Medicine; PCP Family Medicine; Visit Provider Family Medicine
DX: U07.1 COVID-19 (principal); J18.9 Pneumonia, unspecified organism; N18.6 End stage renal disease; N39.0 Urinary tract infection, site not specified; Z16.21 Resistance to vancomycin; I12.0 Hypertensive chronic kidney disease with stage 5 chronic kidney disease or end stage renal disease; G93.49 Other encephalopathy; J82.83 Eosinophilic asthma; B95.2 Enterococcus as the cause of diseases classified elsewhere; E13.22 Other specified diabetes mellitus with diabetic chronic kidney disease; Z99.2 Dependence on renal dialysis; I25.2 Old myocardial infarction; E78.5 Hyperlipidemia, unspecified; N40.0 Benign prostatic hyperplasia without lower urinary tract symptoms; D63.1 Anemia in chronic kidney disease; G47.33 Obstructive sleep apnea (adult) (pediatric); I25.10 Atherosclerotic heart disease of native coronary artery without angina pectoris; Z87.891 Personal history of nicotine dependence; Z86.718 Personal history of other venous thrombosis and embolism; Z79.4 Long term (current) use of insulin; Z79.82 Long term (current) use of aspirin; Z79.01 Long term (current) use of anticoagulants; Z86.73 Personal history of transient ischemic attack (TIA), and cerebral infarction without residual deficits; Z98.61 Coronary angioplasty status
CPT/HCPCS: 36415; 36416; 70450; 71045; 71250; 74177; 80053; 81001; 82962; 83605; 83735; 83880; 84100; 84145; 85025; 85610; 85730; 86140; 86706; 87040; 87077; 87086; 87186; 87340; 87426; 87493; 87641; 87804; 90935; 92523; 92610; 93005; 96372; 96376; 97110; 97161; 97167; 97530; 97535; 99214; 99285; A9270; J0248; J1100; J1630; J1644; J1815; J2020; J2270; J2405; J2543; Q3014; Q9967

== ENCOUNTER → 2023-09-02 11:34 | Outpatient (BNVA) | payer MEDICARE, MEDICAID, SELFPAY | PROVIDERS: PCP Family Medicine; Visit Provider Surgery | DX: N18.6 End stage renal disease (principal) | CPT/HCPCS: 99214 ==

== ENCOUNTER → 2023-09-10 14:21 | Outpatient (BNVA) | payer MEDICARE, MEDICAID, SELFPAY | PROVIDERS: PCP Family Medicine; Visit Provider Surgery | DX: N18.6 End stage renal disease (principal); K43.2 Incisional hernia without obstruction or gangrene | CPT/HCPCS: 36590; 99215 ==

== ENCOUNTER 2023-12-03 02:35 | Emergency (ER) | payer MEDICARE, MEDICAID, SELFPAY ==
[2023-12-03] VITALS (8 sets, daily range): BP systolic 152–192; BP diastolic 90–126; PULSE 99–114; RESP 16–18; TEMP 37.1; O2SAT 92–100; BMI 24.1
--- NOTE | 2023-12-03 02:39 | CTR_ITS ---
PROCEDURE INFORMATION: Exam: CT Head Without Contrast Exam date and time: 12/03/2023 3:05 AM Age: 78 years old Clinical indication: Injury or trauma; Fall; Wound, open; Scalp; Not specified; Additional info: Fall posterior hematoma TECHNIQUE: Imaging protocol: Computed tomography of the head without contrast. Radiation optimization: All CT scans at this facility use at least one of these dose optimization techniques: automated exposure control; mA and/or kV adjustment per patient size (includes targeted exams where dose is matched to clinical indication); or iterative reconstruction. COMPARISON: CT head wo con* [id number] 05/29/2023 7:45 PM RADIATION DOSE METRICS: Total DLP (mGy-cm): 1023 FINDINGS: Brain: There is mild to moderate small vessel disease. There is no evidence of acute parenchymal hemorrhage, extra-axial collection, or acute infarction. There is no mass effect, midline shift, or downward herniation. Cerebral ventricles: No ventriculomegaly. Paranasal sinuses: There is peao-kh-qseaceds paranasal sinus disease. Mastoid air cells: Visualized mastoid air cells are well aerated. Bones: Unremarkable. No acute fracture. Soft tissues: There is parietal scalp hematoma. CT/CT head wo con* [id number] IMPRESSION: Yxyg-wo-vbdisost small vessel disease. No evidence of acute intracranial process.
--- NOTE | 2023-12-03 02:39 | ED_ITS ---
HPI - Fall 2 General: Chief Complaint: Fall Stated Complaint: fall Time Seen by Provider: 12/03/23 02:35 History of Present Illness: Patient presents from the [place] [facility] by EMS with complaint of fall and posterior head laceration/hematoma. Patient is alert and oriented and his is his baseline. Patient said he got up to use the restroom and then just fell. Patient is not on any blood thinners per EMS. However Eliquis does appear in his med list here. But after review of his MAR's from the [place] [facility] it does not appear that he is on Eliquis. Per history he has a history of iliac DVT. Patient does have a history of being on dialysis but he took himself off and has been doing okay ever since. Review of Systems 2 General: Reports: 10 or more systems reviewed and unremarkable except in HPI and below PFSH ED 2 PFSH: Medical History Renal failure (ARF), acute on chronic AMS (altered mental status) Metabolic encephalopathy Expressive aphasia End stage renal disease Right leg DVT Iliac DVT (deep venous thrombosis) Pleural effusion, left Systolic CHF CHRISTY (obstructive sleep apnea) Eosinophilic asthma History of stroke BPH (benign prostatic hyperplasia) Myocardial infarct ASHD (arteriosclerotic heart disease) Diabetes 1.5, managed as type 2 HTN (hypertension) Hyperlipidemia Surgical History History of knee replacement (~2014) History of shoulder replacement S/P shoulder replacement S/P knee replacement H/O esophagogastroduodenoscopy (09/26/20) History of colonoscopy (09/26/20) S/P PTCA (percutaneous transluminal coronary angioplasty) Family History Mother Dementia Denies family history of Family history of premature coronary artery disease Social History Smoking and tobacco/nicotine status: former use of tobacco/nicotine Quit status (tobacco/nicotine): has quit using Year quit tobacco: 1971 Former quit date comment: 2ppd x 10 years Alcohol intake: never Household members: spouse Marital status: service: No Current occupational status: retired Physical Exam 2 Const: COMMON NORMALS: no acute distress, average body habitus, no limitations, healthy appearing, alert and well nourished HENMT: COMMON NORMALS: normocephalic, hearing grossly normal bilaterally, external ears normal, Normal external nose present, moist oral mucous membranes and oropharynx normal; head/scalp not atraumatic (Large hematoma with bleeding controlled on posterior occipital region) HEAD & SCALP: normocephalic; not atraumatic (Large hematoma with bleeding controlled on posterior occipital region) NOSE: Normal external nose present EXTERNAL EAR: Yes external ears normal Eye: COMMON NORMALS: Equal, round and reactive pupils present, EOMs intact bilaterally, conjunctivae normal and no scleral icterus CONJUNCTIVA: Yes conjunctivae normal PUPIL: Yes Equal, round and reactive pupils present Neck/C-Spine: COMMON NORMALS: full ROM, no lymphadenopathy, supple, no meningeal signs, no JVD and Thyroid normal THYROID: Thyroid normal Chest: COMMONS NORMALS: normal inspection of the chest and normal palpation of entire chest wall Resp: COMMON NORMALS: normal respiratory effort, No retractions, No use of accessory muscles and clear to auscultation bilaterally AUSCULTATION: clear to auscultation bilaterally Cardio: COMMON NORMALS: no JVD, regular rate, regular rhythm, S1 normal heart sound present, S2 normal heart sound present, No gallops present (Cardio), No clicks present (Cardio), No murmurs present (Cardio) and No rub (Cardio) R ATE: regular rate RHYTHM: regular rhythm HEART SOUNDS: S1 normal heart sound present and S2 normal heart sound present GI: COMMON NORMALS: Soft to palpation, non-tender, No hepatosplenomegaly present and no masses; negative for Normal to inspection, nondistended, normoactive bowel sounds present (Large ventral abdominal wall hernia noted) PALPATION: Yes Soft to palpation and Yes No hepatosplenomegaly present Neuro: SENSORIUM/ORIENTATION: Yes alert MENINGEAL SIGNS: Yes no meningeal signs Procedures Laceration Laceration 1: Site: scalp Size (cm): 2 Description: linear Depth: simple, single layer Pre-repair: wound explored Skin layer closed with: other ([place] x 3) Course 2 Vital Signs: Vital signs: Vital Signs Temperature 98.8 F 12/03/23 02:36 Pulse Rate 99 12/03/23 05:31 Respiratory Rate 18 12/03/23 05:31 Blood Pressure 158/90 12/03/23 05:31 Pulse Oximetry 99 12/03/23 05:31 Oxygen Delivery Me thod Room Air 12/03/23 02:36 MDM - Fall Medical Decision Making CBC was obtained, head CT was negative for intracranial hemorrhage, laceration was cleaned and 3 celina placed as well as dressing. Patient will be discharged back to the facility for follow-up in approximately 7 days. Lab Data 12/03/23 02:[address] 12/03/23 02:39 IMPRESSION: Ketj-ke-uolfwtdv small vessel disease. No evidence of acute intracranial process. Laboratory Results WBC 14.02 10^3/uL (3.29-11.43) H 12/03/23 02:54 RBC 3.15 10^6/uL (3.85-5.65) L 12/03/23 02:54 Hgb 9.50 g/dL (11.27-16.99) L 12/03/23 02:54 Hct 30.2 % (37-53) L 12/03/23 02:54 MCV 95.9 fl (82-101) 12/03/23 02:54 MCH 30.2 pg (27-33) 12/03/23 02:54 MCHC 31.5 g/dL (30-55) 12/03/23 02:54 RDW 14.0 % (12.1-15.1) 12/03/23 02:54 Plt Count 409 10^3/cmm (157-399) H 12/03/23 02:54 MPV 8.4 fL (7.4-10.4) 12/03/23 02:54 Neut % (Auto) 60.4 % 12/03/23 02:54 Lymph % (Auto) 26.2 % 12/03/23 02:54 [place] % (Auto) 8.9 % 12/03/23 02:54 Eos % (Auto) 3.6 % 12/03/23 02:54 Baso % (Auto) 0.1 % 12/03/23 02:54 Neut # (Auto) 8.46 10^3/uL (1.8-7.7) H 12/03/23 02:54 Lymph # (Auto) 3.7 10^3/uL (0.8-4.8) 12/03/23 02:54 [place] # (Auto) 1.3 10^3/uL (0.2-0.9) H 12/03/23 02:54 Eos # (Auto) 0.5 10^3/uL (0.0-0.8) 12/03/23 02:54 Baso # (Auto) 0.0 10^3/uL (0.0-0.1) 12/03/23 02:54 Nucleated RBC % (auto) 0 % 12/03/23 02:54 Nucleated RBCs # 0.0 /100WBC 12/03/23 02:54 PT 12.90 SECONDS (12.1-14.9) 12/03/23 02:54 INR 0.94 (0.8-1.2) 12/03/23 02:54 All radiology interpretation(s) finalized by discharge Discharge Plan Discharge Patient Disposition: Home Clinical Impression: Hematoma of occipital region of scalp Fall Qualifiers: Encounter type: initial encounter Qualified Code(s): W19.XXXA - Unspecified fall, initial encounter Laceration of occipital scalp Qualifiers: Encounter type: initial encounter Qualified Code(s): S01.01XA - Laceration without foreign body of scalp, initial encounter Prescriptions: No Action nitroglycerin [Nitrostat] 0.4 mg tablet, sublingual 0.4 mg SUBLINGUAL Q5M PRN (Reason: Chest Pain) atorvastatin 40 mg tablet 40 mg PO DAILY@2100 ferrous fumarate 325 mg (106 mg iron) tablet 325 mg PO DAILY finasteride 5 mg tablet 5 mg PO DAILY albuterol sulfate [Ventolin HFA] 90 mcg/actuation HFA aerosol inhaler 1 inh inhalation QID PRN (Reason: shortness of breath or wheezing) Qty: 8.5 3RF alprazolam 0.25 mg tablet 0.25 mg PO DAILY PRN (Reason: Anxiety) bisacodyl 10 mg Suppository 10 mg [place] DAILY PRN (Reason: Constipation) quetiapine [Seroquel] 25 mg tablet 25 mg PO BEDTIME mecobalamin (vitamin B12) [B12 Active] 1,000 mcg tablet,chewable 1,000 mcg PO DAILY Qty: 60 0RF apixaban 5 mg Tablet 5 mg PO BID calcitriol 0.25 mcg capsule See Rx Instructions .ROUTE .COMPLEX Rx Instructions: 0.25 mcg orally 3 times weekly on Friday, Friday, Friday cholecalciferol (vitamin D3) [Vitamin D3] 50 mcg (2,000 unit) Tablet 100 mcg PO DAILY pantoprazole 40 mg tablet,delayed release (DR/EC) 40 mg PO DAILY acyclovir 200 mg capsule 200 mg PO 5XD PRN (Reason: outbreaks) insulin aspart U-100 [Novolog FlexPen U-100 Insulin] 100 unit/mL (3 mL) insulin pen See Rx Instructions .ROUTE .COMPLEX Qty: 15 0RF Rx Instructions: Inject, subcut, 3 times daily, after meals, based on low-dose sliding scale. BS 141-180= 0ML, 181-220= 2ML, 221-260= 4ML, 261-300= 6ML, 301-350= 8ML, 351- 400= 10ML, 401-450= 12ML, 451-500= 14ML. citalopram 30 mg Capsule 30 mg PO DAILY magnesium hydroxide [Milk of Magnesia] 400 mg/5 mL Suspension 30 ml PO DAILY PRN (Reason: Constipation) Fleet Enema 19-7 gram/118 mL Enema 118 ml [place] DAILY PRN (Reason: Constipation) cyanocobalamin (vitamin B-12) 1,000 mcg/mL Solution 1,000 mcg SUBCUT Q1M Rx Instructions: STARTING ON AND ENDING ON THE 6TH EVERY MONTH aspirin 81 mg Tablet,Delayed Release (Dr/Ec) 81 mg PO DAILY Discharge Orders: Discharge ED (Routine); Ordered 12/03/23 Ordered By: Bill Andrea Referrals: Ramiro Villavicencio MD [Primary Care Provider] - 1 week Patient Instructions: Scalp Laceration, Scalp Contusion in Adults (ED), Hematoma (ED) Activity Restrictions/Additional Instructions: Your CT of your head did not show any acute intracranial bleeding. Your scalp laceration was closed with 3 celina and dressing. Please keep the dressing clean and dry. Please follow-up with your family practice physician within the next 7 days for reevaluation and probable suture removal. Coding Level of Care Code ED [employer] Quality Technician for Milind Johnston
--- NOTE | 2023-12-03 02:41 | ECG_ITS ---
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 Measurements Intervals [place] Rate: 105 P: 68 [place]: 178 QRS: -37 QRSD: 94 T: 51 QT: 331 QTc: 439 Interpretive Statements SINUS TACHYCARDIA LEFT AXIS DEVIATION [QRS AXIS < -30] LOW QRS VOLTAGE IN PRECORDIAL LEADS [QRS DEFLECTION < 1.0 mV IN CHEST LEADS] INCOMPLETE RIGHT BUNDLE BRANCH BLOCK [90+ ms QRS DURATION, TERMINAL R IN V1/V2, 40+ ms S IN I/aVL/V4/V5/V6] PROBABLE ANTERIOR MYOCARDIAL INFARCTION , OF INDETERMINATE AGE [35 ms Q WAVE IN V3/V4] Compared to ECG 05/29/2023 19:30:26 Left-axis deviation now present Sinus rhythm no longer present Myocardial infarct finding still present Heavy baseline artifact. Need to repeat Electronically Signed On 12-03-2023 19:59:00 CDT by Meghan Gillespie M.D. [id number]
[2023-12-03 02:57] LABS: Basophils % 0.1 %; Eosinophils # 0.5 10^3/uL (0.0-0.8); Eosinophils % 3.6 %; Hematocrit 30.2 % (37-53); Lymphocytes # 3.7 10^3/uL (0.8-4.8); Lymphocytes % 26.2 %; Mean Corpuscular HGB Conc 31.5 g/dL (30-55); Mean Corpuscular Hemoglobin 30.2 pg (27-33); Mean Corpuscular Volume 95.9 fl (82-101); Mean Platelet Volume 8.4 fL (7.4-10.4); Monocytes # 1.3 10^3/uL (0.2-0.9); Monocytes % 8.9 %; Neutrophils # 8.46 10^3/uL (1.8-7.7); Neutrophils % 60.4 %; Nucleated Red Blood Cells % 0 %; Platelet Count 409 10^3/cmm (157-399); Red Blood Count 3.15 10^6/uL (3.85-5.65); White Blood Count 14.02 10^3/uL (3.29-11.43)
[2023-12-03 03:16] LABS: INR 0.94 (0.8-1.2)
[2023-12-03] MEDS: ondansetron 2 mg/ML SDV 2 mL 4 MG IVP (03:48)
[2023-12-03] MEDS: morphine 4 mg/mL SDV 1 mL IVP (03:49)
[2023-12-03] MEDS: morphine 4 mg/mL SDV 1 mL 2 MG IVP (06:11)
== END 2023-12-03 11:01 | disposition home or self-care (01) ==
PROVIDERS: Emergency Provider Emergency Medicine; PCP Family Medicine
DX: S01.01XA Laceration without foreign body of scalp, initial encounter (principal); Z79.82 Long term (current) use of aspirin; Z79.4 Long term (current) use of insulin; Z87.891 Personal history of nicotine dependence; E13.22 Other specified diabetes mellitus with diabetic chronic kidney disease; I13.2 Hypertensive heart and chronic kidney disease with heart failure and with stage 5 chronic kidney disease, or end stage renal disease; I50.20 Unspecified systolic (congestive) heart failure; N18.6 End stage renal disease; Z86.73 Personal history of transient ischemic attack (TIA), and cerebral infarction without residual deficits; I25.2 Old myocardial infarction; E78.5 Hyperlipidemia, unspecified; Z79.01 Long term (current) use of anticoagulants; W19.XXXA Unspecified fall, initial encounter
CPT/HCPCS: 12001; 70450; 85025; 85610; 93005; 96374; 96375; 96376; 99285; J2270; J2405

== ENCOUNTER 2024-03-07 14:22 | Emergency (ER) | payer MEDICARE, MEDICAID, SELFPAY ==
[2024-03-07 14:26] VITALS: BP 174/93; PULSE 96; RESP 18; TEMP 36.7; O2SAT 100; BMI 23.7
--- NOTE | 2024-03-07 14:33 | ED_ITS ---
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 Patient here is able to hear out of his left ear currently has had some dried blood around his ear he rates his pain a 3 out of 10 denies any known injuries. Associated symptoms: Reports ear or mastoid pain; Denies fever(s), headache(s) or neck pain Related Data Home Medications Medication Instructions Recorded Confirmed atorvastatin 40 mg tablet 40 mg PO DAILY@2100 11/22/19 09/10/23 nitroglycerin 0.4 mg sublingual 0.4 mg sublingual Q5M PRN Chest 11/22/19 09/10/23 tablet (Nitrostat) Pain ferrous fumarate 325 mg (106 mg 325 mg PO DAILY 04/08/22 09/10/23 iron) tablet finasteride 5 mg tablet 5 mg PO DAILY 04/08/22 09/10/23 acyclovir 200 mg capsule 200 mg PO 5XD PRN outbreaks 03/28/23 09/10/23 calcitriol 0.25 mcg capsule See Rx Instructions .Route .COMPLEX 03/28/23 09/10/23 cholecalciferol (vitamin D3) 50 100 mcg PO DAILY 03/28/23 09/10/23 mcg (2,000 unit) tablet (Vitamin D3) pantoprazole 40 mg tablet,delayed 40 mg PO DAILY 03/28/23 09/10/23 release aspirin 81 mg tablet,delayed 81 mg PO DAILY 05/01/23 09/10/23 release citalopram 30 mg capsule 30 mg PO DAILY 05/01/23 09/10/23 cyanocobalamin (vitamin B-12) 1,000 mcg SUBCUT Q1M 05/01/23 09/10/23 1,000 mcg/mL injection solution magnesium hydroxide 400 mg/5 mL 30 ml PO DAILY PRN Constipation 05/01/23 09/10/23 oral suspension (Milk of Magnesia) sodium phosphates 19 gram-[address] DAILY PRN Constipation 05/01/23 09/10/23 gram/118 mL enema (Fleet Enema) alprazolam 0.25 mg tablet 0.25 mg PO DAILY PRN Anxiety 05/17/23 09/10/23 bisacodyl 10 mg rectal suppository [address] DAILY PRN Constipation 05/17/23 09/10/23 quetiapine 25 mg tablet (Seroquel) 25 mg PO BEDTIME 05/17/23 09/10/23 apixaban 5 mg tablet 5 mg PO BID 05/29/23 09/10/23 Previous Rx's Medication Instructions Recorded albuterol sulfate 90 mcg/actuation 1 inh inhalation QID PRN shortness 11/14/22 aerosol inhaler (Ventolin HFA) of breath or wheezing #8.5 grams insulin aspart U-100 100 unit/mL See Rx Instructions .Route 04/18/23 (3 mL) subcutaneous pen (Novolog .COMPLEX #15 mL FlexPen U-100 Insulin aspart) mecobalamin (vitamin B12) 1,000 1,000 mcg PO DAILY #60 tabs 05/20/23 mcg chewable tablet (B12 Active) cephalexin 500 mg capsule 500 mg PO TID 7 days #21 caps 03/07/24 Allergies Allergy/AdvReac Type Severity Reaction Status Date / Time Penicillins Allergy Unknown Unknown Verified 12/03/23 02:43 Review of Systems Const: Denies: fever(s), chills, body aches or change in appetite Eyes: Denies: blurry vision or eye discomfort ENMT: Reports: ear or mastoid pain; Denies: throat pain or dental pain Card: Denies: chest pain Resp: Denies: dyspnea GI: Denies: abdominal pain, nausea, vomiting or diarrhea Musc: Denies: neck pain or back pain Skin/Breast: Denies: rash Neuro: Denies: headache(s) PFSH ED PFSH: Medical History Renal failure (ARF), acute on chronic AMS (altered mental status) Metabolic encephalopathy Expressive aphasia End stage renal disease Right leg DVT Iliac DVT (deep venous thrombosis) Pleural effusion, left Systolic CHF CHRISTY (obstructive sleep apnea) Eosinophilic asthma History of stroke BPH (benign prostatic hyperplasia) Myocardial infarct ASHD (arteriosclerotic heart disease) Diabetes 1.5, managed as type 2 HTN (hypertension) Hyperlipidemia Surgical History History of knee replacement (~2014) History of shoulder replacement S/P shoulder replacement S/P knee replacement H/O esophagogastroduodenoscopy (09/26/20) History of colonoscopy (09/26/20) S/P PTCA (percutaneous transluminal coronary angioplasty) Family History Mother Dementia Denies family history of Family history of premature coronary artery disease Social History Smoking and tobacco/nicotine status: former use of tobacco/nicotine Quit status (tobacco/nicotine): has quit using Year quit tobacco: 1971 Former quit date comment: 2ppd x 10 years Alcohol intake: never Household members: spouse Marital status: service: No Current occupational status: retired Physical Exam Const: COMMON NORMALS: no acute distress, patient oriented x3 and healthy appearing HENMT: COMMON NORMALS: normocephalic and atraumatic HEAD & SCALP: normocephalic and atraumatic TYMPANIC MEMBRANE: TM normal on the right OTHER: Unable to fully visual tympanic membrane on the left he has some dried blood in the left ear canal no signs of otitis externa Eye: COMMON NORMALS: Equal, round and reactive pupils present and EOMs intact bilaterally PUPIL: Yes Equal, round and reactive pupils present Neck/C-Spine: COMMON NORMALS: full ROM and supple Chest: COMMONS NORMALS: normal inspection of the chest Resp: COMMON NORMALS: normal respiratory effort Extremity: COMMON NORMALS: normal to inspection and full ROM Neuro: COMMON NORMALS: patient oriented x3, moves all extremities and no focal motor deficits Psych: COMMON NORMALS: mental status grossly normal, Normal thought process present and cooperative THOUGHT PROCESS: Normal thought process present Skin: COMMON NORMALS: no rashes or lesions noted and no wounds GENERAL SKIN EXAM: no rashes or lesions noted Course Vital Signs: Vital signs: Vital Signs Temperature 98.1 F 03/07/24 14:26 Pulse Rate 96 03/07/24 14:26 Respiratory Rate 18 03/07/24 14:26 Blood Pressure 174/93 03/07/24 14:26 Pulse Oximetry 100 03/07/24 14:26 Oxygen Delivery Me thod Room Air 03/07/24 14:26 MDM - Ear Medical Decision Making Patient presents with left ear pain and some slight bleeding from his left ear he does have cerumen buildup in that left ear unable to fully visualize the tympanic membrane he could have a TM rupture no large amount of bleeding at this time we will start him on antibiotics we will get him follow-up with ENT he is to not flush or place anything in that canal until he follows up with ENT. Return if worsening. No radiology studies performed this visit Discharge Plan Discharge Patient Disposition: Home Clinical Impression: Left ear pain, Bleeding from left ear Condition: Stable Prescriptions: New cephalexin 500 mg capsule 500 mg PO TID 7 Days Qty: 21 0RF No Action nitroglycerin [Nitrostat] 0.4 mg tablet, sublingual 0.4 mg SUBLINGUAL Q5M PRN (Reason: Chest Pain) atorvastatin 40 mg tablet 40 mg PO DAILY@2100 ferrous fumarate 325 mg (106 mg iron) tablet 325 mg PO DAILY finasteride 5 mg tablet 5 mg PO DAILY albuterol sulfate [Ventolin HFA] 90 mcg/actuation HFA aerosol inhaler 1 inh inhalation QID PRN (Reason: shortness of breath or wheezing) Qty: 8.5 3RF alprazolam 0.25 mg tablet 0.25 mg PO DAILY PRN (Reason: Anxiety) bisacodyl 10 mg Suppository [address] DAILY PRN (Reason: Constipation) quetiapine [Seroquel] 25 mg tablet 25 mg PO BEDTIME mecobalamin (vitamin B12) [B12 Active] 1,000 mcg tablet,chewable 1,000 mcg PO DAILY Qty: 60 0RF apixaban 5 mg Tablet 5 mg PO BID calcitriol 0.25 mcg capsule See Rx Instructions .ROUTE .COMPLEX Rx Instructions: 0.25 mcg orally 3 times weekly on Friday, Friday, Friday cholecalciferol (vitamin D3) [Vitamin D3] 50 mcg (2,000 unit) Tablet 100 mcg PO DAILY pantoprazole 40 mg tablet,delayed release (DR/EC) 40 mg PO DAILY acyclovir 200 mg capsule 200 mg PO 5XD PRN (Reason: outbreaks) insulin aspart U-100 [Novolog FlexPen U-100 Insulin] 100 unit/mL (3 mL) insulin pen See Rx Instructions .ROUTE .COMPLEX Qty: 15 0RF Rx Instructions: Inject, subcut, 3 times daily, after meals, based on low-dose sliding scale. BS 141-180= 0ML, 181-220= 2ML, 221-260= 4ML, 261-300= 6ML, 301-350= 8ML, 351- 400= 10ML, 401-450= 12ML, 451-500= 14ML. citalopram 30 mg Capsule 30 mg PO DAILY magnesium hydroxide [Milk of Magnesia] 400 mg/5 mL Suspension 30 ml PO DAILY PRN (Reason: Constipation) Fleet Enema 19-7 gram/118 mL Enema [address] DAILY PRN (Reason: Constipation) cyanocobalamin (vitamin B-12) 1,000 mcg/mL Solution 1,000 mcg SUBCUT Q1M Rx Instructions: STARTING ON AND ENDING ON THE EVERY MONTH aspirin 81 mg Tablet,Delayed Release (Dr/Ec) 81 mg PO DAILY Discharge Orders: Discharge ED (Routine); Ordered 03/07/24 Ordered By: Marvel Ibarra Referrals: Stanley Calderon MD [Physician] - 1-3 days Ramiro Villavicencio MD [Primary Care Provider] - Discharge Diet: Advance as tolerated Discharge Activity: Resume usual activity Patient Instructions: Ear Pain - Adult Activity Restrictions/Additional Instructions: Do not do any more flushes to the left ear do not use Q-tips or curettes follow- up with ENT Coding Level of Care Code ED Merchandise Appraiser for Milind Johnston
[2024-03-07] MEDS: cephALEXin 500 mg Capsule PO (14:47)
[2024-03-07 14:49] VITALS: BP 174/93; PULSE 96; RESP 18; O2SAT 100
--- NOTE | 2024-03-07 16:49 | PC.NURSE ---
PATIENT DOES NOT QUALIFY FOR TRANSPORT BACK TO [facility]. PATIENTS SON CALLED AND STATED HE WOULD COME GET HIM. PATIENT TAKEN BACK TO [facility] BY SON.
[2024-03-07 16:50] VITALS: BP 174/93; PULSE 96; RESP 18; TEMP 36.7; O2SAT 100
--- NOTE | 2024-03-11 07:26 | DCPLANNER ---
faxed dr edwards er f/u referral
== END 2024-03-07 16:45 | disposition home or self-care (01) ==
PROVIDERS: Emergency Provider Emergency Medicine; PCP Family Medicine
DX: H92.02 Otalgia, left ear (principal); H92.22 Otorrhagia, left ear; Z79.82 Long term (current) use of aspirin; Z79.4 Long term (current) use of insulin; Z87.891 Personal history of nicotine dependence; I13.2 Hypertensive heart and chronic kidney disease with heart failure and with stage 5 chronic kidney disease, or end stage renal disease; E13.22 Other specified diabetes mellitus with diabetic chronic kidney disease; N18.6 End stage renal disease; I50.20 Unspecified systolic (congestive) heart failure; Z99.2 Dependence on renal dialysis; Z86.73 Personal history of transient ischemic attack (TIA), and cerebral infarction without residual deficits; I25.2 Old myocardial infarction; E78.5 Hyperlipidemia, unspecified
CPT/HCPCS: 99283

== ENCOUNTER 2024-07-11 14:46 | Inpatient (IN) | payer MEDICARE, MEDICAID, SELFPAY ==
[2024-07-11] VITALS (17 sets, daily range): BP systolic 106–153; BP diastolic 57–93; PULSE 105–130; RESP 14–23; TEMP 36.4–37; O2SAT 93–99
--- NOTE | 2024-07-11 14:52 | ECG_ITS ---
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 [id number]
--- NOTE | 2024-07-11 14:57 | XRR_ITS ---
PROCEDURE INFORMATION: Exam: XR Chest Exam date and time: 07/11/2024 3:02 PM Age: 79 years old Clinical indication: Cough; Prior surgery; Surgery date: 6+ months; Patient HX: Tachycardia; Afib; HX cardiac stents x 7 TECHNIQUE: Imaging protocol: Radiologic exam of the chest. Views: 1 view. COMPARISON: CT chest con [id number] 05/29/2023 9:44 PM FINDINGS: Lungs: Unremarkable. No consolidation or mass. Pleural spaces: Small bilateral pleural effusions are noted. Heart/Mediastinum: Unremarkable. No cardiomegaly. Bones/joints: A right shoulder prosthesis is well seated and well aligned. XR/XR chest 1V portable [id number] IMPRESSION: Bilateral pleural effusions of uncertain etiology
--- NOTE | 2024-07-11 15:01 | ED_ITS ---
HPI - Arrhythmia/Palpitations 2 General: Chief Complaint: Arrhythmia/Palpitations Stated Complaint: afib Time Seen by Provider: 07/11/24 14:56 Source: patient and EMS Mode of arrival: EMS Limitations: no limitations History of Present Illness: 79-year-old male history of A-fib here f [facility] states has had cough congestion for the last 2 days been having some mild dyspnea regimen sent him here because has been in A-fib with RVR today's heart rates been in the 120s 140s heart rate here is 145 he denies any chest pain he denies any vomiting or diarrhea. Associated symptoms: Deny nausea or vomiting Related Data Home Medications Medication Instructions Recorded Confirmed atorvastatin 40 mg tablet 40 mg PO DAILY@2100 11/22/19 09/10/23 nitroglycerin 0.4 mg sublingual 0.4 mg sublingual Q5M PRN Chest 11/22/19 09/10/23 tablet (Nitrostat) Pain ferrous fumarate 325 mg (106 mg 325 mg PO DAILY 04/08/22 09/10/23 iron) tablet finasteride 5 mg tablet 5 mg PO DAILY 04/08/22 09/10/23 acyclovir 200 mg capsule 200 mg PO 5XD PRN outbreaks 03/28/23 09/10/23 calcitriol 0.25 mcg capsule See Rx Instructions .Route .COMPLEX 03/28/23 09/10/23 cholecalciferol (vitamin D3) 50 100 mcg PO DAILY 03/28/23 09/10/23 mcg (2,000 unit) tablet (Vitamin D3) pantoprazole 40 mg tablet,delayed 40 mg PO DAILY 03/28/23 09/10/23 release aspirin 81 mg tablet,delayed 81 mg PO DAILY 05/01/23 09/10/23 release citalopram 30 mg capsule 30 mg PO DAILY 05/01/23 09/10/23 cyanocobalamin (vitamin B-12) 1,000 mcg SUBCUT Q1M 05/01/23 09/10/23 1,000 mcg/mL injection solution magnesium hydroxide 400 mg/5 mL 30 ml PO DAILY PRN Constipation 05/01/23 09/10/23 oral suspension (Milk of Magnesia) sodium phosphates 19 gram-7 118 ml [place] DAILY PRN Constipation 05/01/23 09/10/23 gram/118 mL enema (Fleet Enema) alprazolam 0.25 mg tablet 0.25 mg PO DAILY PRN Anxiety 05/17/23 09/10/23 bisacodyl 10 mg rectal suppository 10 mg WA DAILY PRN Constipation 05/17/23 09/10/23 quetiapine 25 mg tablet (Seroquel) 25 mg PO BEDTIME 05/17/23 09/10/23 apixaban 5 mg tablet 5 mg PO BID 05/29/23 09/10/23 Previous Rx's Medication Instructions Recorded albuterol sulfate 90 mcg/actuation 1 inh inhalation QID PRN shortness 11/14/22 aerosol inhaler (Ventolin HFA) of breath or wheezing #8.5 grams insulin aspart U-100 100 unit/mL See Rx Instructions .Route 04/18/23 (3 mL) subcutaneous pen (Novolog .COMPLEX #15 mL FlexPen U-100 Insulin aspart) mecobalamin (vitamin B12) 1,000 1,000 mcg PO DAILY #60 tabs 05/20/23 mcg chewable tablet (B12 Active) Allergies Allergy/AdvReac Type Severity Reaction Status Date / Time Penicillins Allergy Unknown Unknown Verified 12/03/23 02:43 Review of Systems 2 Const: Denies: fever(s), chills, body aches or change in appetite ENMT: Denies: throat pain or dental pain Card: Reports: palpitations and irregular heart rhythm; Denies: chest pain Resp: Reports: dyspnea and non-productive cough GI: Denies: abdominal pain, nausea, vomiting or diarrhea Musc: Denies: neck pain or back pain Skin/Breast: Denies: rash Neuro: Denies: headache(s) PFSH ED 2 PFSH: Medical History Renal failure (ARF), acute on chronic AMS (altered mental status) Metabolic encephalopathy Expressive aphasia End stage renal disease Right leg DVT Iliac DVT (deep venous thrombosis) Pleural effusion, left Systolic CHF CHRISTY (obstructive sleep apnea) Eosinophilic asthma History of stroke BPH (benign prostatic hyperplasia) Myocardial infarct ASHD (arteriosclerotic heart disease) Diabetes 1.5, managed as type 2 HTN (hypertension) Hyperlipidemia Surgical History History of knee replacement (~2014) History of shoulder replacement S/P shoulder replacement S/P knee replacement H/O esophagogastroduodenoscopy (09/26/20) History of colonoscopy (09/26/20) S/P PTCA (percutaneous transluminal coronary angioplasty) Family History Mother Dementia Denies family history of Family history of premature coronary artery disease Social History Smoking and tobacco/nicotine status: former use of tobacco/nicotine Quit status (tobacco/nicotine): has quit using Year quit tobacco: 1971 Former quit date comment: 2ppd x 10 years Alcohol intake: never Household members: spouse Marital status: service: No Current occupational status: retired Physical Exam 2 Const: COMMON NORMALS: patient oriented x3 HENMT: COMMON NORMALS: normocephalic and atraumatic HEAD & SCALP: n ormocephalic and atraumatic Eye: COMMON NORMALS: Equal, round and reactive pupils present and EOMs intact bilaterally PUPIL: Yes Equal, round and reactive pupils present Neck/C-Spine: COMMON NORMALS: full ROM and supple Chest: COMMONS NORMALS: normal inspection of the chest Resp: COMMON NORMALS: normal respiratory effort, No retractions, No use of accessory muscles and clear to auscultation bilaterally AUSCULTATION: clear to auscultation bilaterally Cardio: COMMON NORMALS: No murmurs present (Cardio) RATE: tachycardic R HYTHM: abnormal rhythm irregularly irregular GI: COMMON NORMALS: Normal to inspection, nondistended, normoactive bowel sounds present, Soft to palpation, non-tender and no masses PALPATION: Yes Soft to palpation Extremity: COMMON NORMALS: normal to inspection and full ROM Neuro: COMMON NORMALS: patient oriented x3, moves all extremities and no focal motor deficits Psych: COMMON NORMALS: mental status grossly normal, Normal thought process present and cooperative THOUGHT PROCESS: Normal thought process present Skin: COMMON NORMALS: no rashes or lesions noted and no wounds GENERAL SKIN EXAM: no rashes or lesions noted Course 2 Vital Signs: Vital signs: Vital Signs Temperature 98.0 F 07/11/24 14:47 Pulse Rate 116 H 07/11/24 16:30 Respiratory Rate 18 07/11/24 16:30 Blood Pressure 106/80 07/11/24 16:30 Pulse Oximetry 99 07/11/24 16:30 MDM - Arrhythmia/Palpitations Medical Decision Making Patient presents here with cough congestion for 2 days x-ray does show pleural effusions no obvious pneumonia we will get blood cultures start antibiotics she is also in A-fib with RVR here did give him a Cardizem bolus and started Cardizem drip spoke to hospitalist will admit to cardiac stepdown. Medical Records I reviewed the patient's medical records. Lab Data I reviewed the patient's lab results. 07/11/24 15:00 07/11/24 15:00 Radiology Impressions Chest X-Ray 07/11/24 14:57 IMPRESSION: Bilateral pleural effusions of uncertain etiology Laboratory Results WBC 14.33 10^3/uL (3.29-11.43) H 07/11/24 15:00 RBC 2.48 10^6/uL (3.85-5.65) L 07/11/24 15:00 Hgb 7.50 g/dL (11.27-16.99) L 07/11/24 15:00 Hct 24.5 % (37-53) L 07/11/24 15:00 MCV 98.8 fl (82-101) 07/11/24 15:00 MCH 30.2 pg (27-33) 07/11/24 15:00 MCHC 30.6 g/dL (30-55) 07/11/24 15:00 RDW 14.0 % (12.1-15.1) 07/11/24 15:00 Plt Count 455 10^3/cmm (157-399) H 07/11/24 15:00 MPV 9.7 fL (7.4-10.4) 07/11/24 15:00 Neut % (Auto) 89.9 % 07/11/24 15:00 Lymph % (Auto) 5.1 % 07/11/24 15:00 [place] % (Auto) 4.3 % 07/11/24 15:00 Eos % (Auto) 0.0 % 07/11/24 15:00 Baso % (Auto) 0.1 % 07/11/24 15:00 Neut # (Auto) 12.89 10^3/uL (1.8-7.7) H 07/11/24 15:00 Lymph # (Auto) 0.7 10^3/uL (0.8-4.8) L 07/11/24 15:00 [place] # (Auto) 0.6 10^3/uL (0.2-0.9) 07/11/24 15:00 Eos # (Auto) 0.0 10^3/uL (0.0-0.8) 07/11/24 15:00 Baso # (Auto) 0.0 10^3/uL (0.0-0.1) 07/11/24 15:00 Nucleated RBC % (auto) 0 % 07/11/24 15:00 Nucleated RBCs # 0.0 /100WBC 07/11/24 15:00 PT 13.60 SECONDS (12.1-14.9) 07/11/24 15:00 INR 1.01 (0.8-1.2) 07/11/24 15:00 Sodium 136 mmol/L (136-145) 07/11/24 15:00 Potassium 4.5 mmol/L (3.5-5.1) 07/11/24 15:00 Chloride 102 mmol/L (98-107) 07/11/24 15:00 Carbon Dioxide 17 mmol/L (22-29) L 07/11/24 15:00 Anion Gap 21.5 (5-19) H 07/11/24 15:00 BUN 50 mg/dL (8-23) H 07/11/24 15:00 Creatinine 4.4 mg/dL (0.7-1.2) H 07/11/24 15:00 GFR Calculation Not Reportable 07/11/24 15:00 Glucose 180 mg/dL (65-115) H 07/11/24 15:00 Calculated Osmolality 300 mOsm/kg (285-295) H 07/11/24 15:00 Calcium 9.1 mg/dL (8.5-10.5) 07/11/24 15:00 Total Bilirubin 0.2 mg/dL (0.15-1.2) 07/11/24 15:00 AST 9 U/L (0-40) 07/11/24 15:00 ALT 11 U/L (0-41) 07/11/24 15:00 Alkaline Phosphatase 77 U/L (40-130) 07/11/24 15:00 Total Protein 7.0 g/dL (6.6-8.7) 07/11/24 15:00 Albumin 4.3 g/dL (3.5-5.2) 07/11/24 15:00 Globulin 2.7 g/dL (1.3-4.6) 07/11/24 15:00 Coronavirus (PCR) Negative (Negative) 07/11/24 16:15 Influenza A (PCR) Negative (Negative) 07/11/24 16:15 Influenza Type B (PCR) Negative (Negative) 07/11/24 16:15 RSV (PCR) Negative (Negative) 07/11/24 16:15 All radiology interpretation(s) finalized by discharge EKG Data EKG 1: I personally reviewed and interpreted this EKG as follows: EKG interpretation date: 07/11/24 EKG interpretation time: 14:52 Interpretation: afib with rvr hr [address] elevation qrs 86 qtc 379 Other EKG comments: Chest X-Ray 07/11/24 14:57 IMPRESSION: Bilateral pleural effusions of uncertain etiology Discharge Plan Discharge Patient Disposition: Admitted As Inpatient Clinical Impression: Atrial fibrillation with RVR, Pleural effusion Condition: Stable Prescriptions: No Action nitroglycerin [Nitrostat] 0.4 mg tablet, sublingual 0.4 mg SUBLINGUAL Q5M PRN (Reason: Chest Pain) atorvastatin 40 mg tablet 40 mg PO DAILY@2100 ferrous fumarate 325 mg (106 mg iron) tablet 325 mg PO DAILY finasteride 5 mg tablet 5 mg PO DAILY albuterol sulfate [Ventolin HFA] 90 mcg/actuation HFA aerosol inhaler 1 inh inhalation QID PRN (Reason: shortness of breath or wheezing) Qty: 8.5 3RF alprazolam 0.25 mg tablet 0.25 mg PO DAILY PRN (Reason: Anxiety) bisacodyl 10 mg Suppository 10 mg WA DAILY PRN (Reason: Constipation) quetiapine [Seroquel] 25 mg tablet 25 mg PO BEDTIME mecobalamin (vitamin B12) [B12 Active] 1,000 mcg tablet,chewable 1,000 mcg PO DAILY Qty: 60 0RF apixaban 5 mg Tablet 5 mg PO BID calcitriol 0.25 mcg capsule See Rx Instructions .ROUTE .COMPLEX Rx Instructions: 0.25 mcg orally 3 times weekly on Friday, Friday, Friday cholecalciferol (vitamin D3) [Vitamin D3] 50 mcg (2,000 unit) Tablet 100 mcg PO DAILY pantoprazole 40 mg tablet,delayed release (DR/EC) 40 mg PO DAILY acyclovir 200 mg capsule 200 mg PO 5XD PRN (Reason: outbreaks) insulin aspart U-100 [Novolog FlexPen U-100 Insulin] 100 unit/mL (3 mL) insulin pen See Rx Instructions .ROUTE .COMPLEX Qty: 15 0RF Rx Instructions: Inject, subcut, 3 times daily, after meals, based on low-dose sliding scale. BS 141-180= 0ML, 181-220= 2ML, 221-260= 4ML, 261-300= 6ML, 301-350= 8ML, 351- 400= 10ML, 401-450= 12ML, 451-500= 14ML. citalopram 30 mg Capsule 30 mg PO DAILY magnesium hydroxide [Milk of Magnesia] 400 mg/5 mL Suspension 30 ml PO DAILY PRN (Reason: Constipation) Fleet Enema 19-7 gram/118 mL Enema 118 ml WA DAILY PRN (Reason: Constipation) cyanocobalamin (vitamin B-12) 1,000 mcg/mL Solution 1,000 mcg SUBCUT Q1M Rx Instructions: STARTING ON AND ENDING ON THE 6TH EVERY MONTH aspirin 81 mg Tablet,Delayed Release (Dr/Ec) 81 mg PO DAILY Referrals: Ramiro Villavicencio MD [Primary Care Provider] - Coding Level of Care Code ED Pocket Secretary Assembler for Milind Johnston
[2024-07-11 15:13] LABS: Basophils % 0.1 %; Hematocrit 24.5 % (37-53); Lymphocytes # 0.7 10^3/uL (0.8-4.8); Lymphocytes % 5.1 %; Mean Corpuscular HGB Conc 30.6 g/dL (30-55); Mean Corpuscular Hemoglobin 30.2 pg (27-33); Mean Corpuscular Volume 98.8 fl (82-101); Mean Platelet Volume 9.7 fL (7.4-10.4); Monocytes # 0.6 10^3/uL (0.2-0.9); Monocytes % 4.3 %; Neutrophils # 12.89 10^3/uL (1.8-7.7); Neutrophils % 89.9 %; Nucleated Red Blood Cells % 0 %; Platelet Count 455 10^3/cmm (157-399); Red Blood Count 2.48 10^6/uL (3.85-5.65); White Blood Count 14.33 10^3/uL (3.29-11.43)
[2024-07-11] MEDS: dilTIAZem 5 mg/mL SDV 5 mL 15 MG IVP (15:13)
[2024-07-11 15:20] LABS: INR 1.01 (0.8-1.2)
[2024-07-11 15:29] LABS: Alanine Aminotransferase 11 U/L (0-41); Albumin Level 4.3 g/dL (3.5-5.2); Alkaline Phosphatase 77 U/L (40-130); Anion Gap 21.5 (5-19); Aspartate Amino Transferase 9 U/L (0-40); Blood Urea Nitrogen 50 mg/dL (8-23); Calcium 9.1 mg/dL (8.5-10.5); Carbon Dioxide 17 mmol/L (22-29); Chloride 102 mmol/L (98-107); Globulin 2.7 g/dL (1.3-4.6); Glucose 180 mg/dL (65-115); Osmolality Calculated 300 mOsm/kg (285-295); Potassium 4.5 mmol/L (3.5-5.1); Sodium 136 mmol/L (136-145); Total Bilirubin 0.2 mg/dL (0.15-1.2)
[2024-07-11] MEDS: dilTIAZem 100 MG in sodium chloride 0.9% (add-van) 100 ML IV (15:45)
[2024-07-11] MEDS: sodium chloride 0.9% 1,000 ML 999 ML IV (15:46)
[2024-07-11] MEDS: ondansetron 2 mg/ML SDV 2 mL 4 MG IVP (16:44)
[2024-07-11 16:55] LABS: Covid PCR NEGATIVE (Negative); Influenza A NEGATIVE (Negative); Influenza B NEGATIVE (Negative); Respiratory Syncytial Virus Ce NEGATIVE (Negative)
--- NOTE | 2024-07-11 17:47 | CTR_ITS ---
PROCEDURE INFORMATION: Exam: CT Chest Without Contrast; Diagnostic Exam date and time: 07/11/2024 5:57 PM Age: 79 years old Clinical indication: Dyspnea and shortness of breath; Additional info: Copd/pna TECHNIQUE: Imaging protocol: Diagnostic computed tomography of the chest without contrast. Radiation optimization: All CT scans at this facility use at least one of these dose optimization techniques: automated exposure control; mA and/or kV adjustment per patient size (includes targeted exams where dose is matched to clinical indication); or iterative reconstruction. COMPARISON: CT chest con [id number] 05/29/2023 9:44 PM RADIATION DOSE METRICS: Total DLP (mGy-cm): 358.97 FINDINGS: Lungs: Consolidations adjacent to the pleural effusions which could be related to compressive atelectasis however follow-up may be obtained if there is a concern for developing pneumonia. The upper lungs are otherwise clear of focal consolidation or ground-glass opacity. Pleural spaces: Small bilateral pleural effusions, with interval decrease on the left and interval increased on the right. Heart: Mild 4 chamber cardiomegaly, increased since prior exam. No pericardial effusion. Coronary calcifications. Increased myocardial conspicuity suggesting possible anemia and clinical correlation is needed. Lymph nodes: No enlarged lymph nodes. Vasculature: There is slight vascular redistribution and mild central vascular engorgement suggesting element of mild vascular congestion. Mild dilatation of ascending aorta at 4.5 cm versus 4.2 cm previously. Descending aorta measures 2.6 cm, unchanged. Lsve-au-abdgzdgv dilatation of main pulmonary artery at 4 cm versus 3.7 cm previously. Adrenal glands: Stable low-density smooth thickening of both adrenal glands suggesting mild hyperplastic changes. There is also a somewhat discrete low-density nodule in the right medial adrenal limb measuring about 9 mm, likely lipid rich adrenal adenoma Bones/joints: Multilevel vertebral disc degeneration and endplate osteophytes. No acute osseous findings otherwise. Soft tissues: No acute findings. CT/CT chest con [id number] IMPRESSION: 1. Comparison CT 05/29/2023. Interval worsening of 4 chamber cardiomegaly. There is also an element of mild vascular congestion. 2. Bilateral pleural effusions with adjacent consolidations. No other acute lung findings. See discussion above. 3. Coronary calcification and other nonacute findings as above. 4. Mild dilatation of ascending aorta and main pulmonary artery, slightly worsened since most recent CT exam. Continued imaging surveillance should be considered if there is no intervention at this time. COMMENTS: Consistent with the [employer]'s Incidental Findings Committee white paper (J Am Jania Radiol 2017): Any incidental adrenal lesion less than 1 cm is likely benign. No follow-up imaging is recommended for these lesions per consensus recommendations based on imaging criteria. Further lab evaluation could be pursued if warranted based on clinical findings.
[2024-07-11] MEDS: AZITHROMYCIN ADD-Vantage 500 MG in 0.9% NaCl ADD-Vantage 250 ML 250 MG IV (17:53)
[2024-07-11] MEDS: cefTRIAXone 1,000 mg SDV 1000 MG IVP (17:53)
[2024-07-11 18:08] LABS: Iron 28 ug/dL (59-158); Total Iron Binding Capacity 280 mcg/dl; Unsaturated Iron Binding 252 ug/dL (112-347)
[2024-07-11] MEDS: pantoprazole 40 mg SDV IVP (18:18)
[2024-07-11] MEDS: amiodarone 150 MG/100 ML PREMIX 400 MG IV (18:18)
[2024-07-11 18:24] LABS: Procalcitonin 0.16 ng/mL (0-0.5); Vitamin B12 990 pg/mL (232-1245)
--- NOTE | 2024-07-11 18:24 | PM.HP ---
Providers/Chief Complaint Primary Care Provider: Ramiro Villavicencio MD Chief Complaint: afib History of Present Illness Jhon Marcos is a 79 year old male with past medical history of type 2 diabetes mellitus, stroke, hypertension, hyperlipidemia, BPH, A-fib with RVR, DVT, mth-XL-uxldbteba MA with cardiomyopathy with a EF of 40 to 45%, CKD not on hemodialysis anymore since September 16, 2013, perforated diverticulitis with intra-abdominal abscess post laparotomy and repair of colon perforation presents to the ER from longterm today because of difficulty in breathing which has been getting worse over last 4 days officiated with cough with expectoration. Difficulty breathing is worse on talking, walking and sometimes on laying down flat. He denies any chest pain, palpitations. Denies any melena, hematemesis. States last bowel movement was around 4 days ago. Denies any abdominal pain. In the ER he was found to have A-fib with RVR with heart rate running around 145 for which she was started on Cardizem drip. Cardizem drip has been uptitrated up to 12.5 but he continues to have heart rate of 110 to 120 bpm. Patient is laying comfortably in bed on room air saturating more than 95%. Complaining of mild cough and difficulty in breathing. Review of Systems General: Reports: 10 or more systems reviewed and unremarkable except in HPI and below Const: Denies: fever(s), chills, body aches, change in appetite, change in weight, malaise, night sweats, diaphoresis, change in sleep pattern, daytime sleepiness or snoring Eyes: Denies: change in vision, blurry vision, photophobia, eye discomfort or eye discharge ENMT: Denies: throat pain, enlarged tonsils, hoarseness, mouth pain, oral sores, dry mouth, tinnitus, nasal congestion or post nasal drip Card: Denies: chest pain, palpitations, irregular heart rhythm, edema, swelling of feet/ankles, lightheadedness, syncope, pre-syncope, dyspnea on exertion, orthopnea, leg pain with exertion or acrocyanosis Resp: Denies: dyspnea, productive cough, non-productive cough, wheezing, stridor, pain on inspiration, change in phlegm color, hemoptysis or chest congestion GI: Denies: abdominal pain, nausea, vomiting, hematemesis, coffee ground emesis, dysphagia, heartburn, diarrhea, constipation, bloating, GI cramping, change in bowel habits, pain on defecation, hematochezia or melena : Denies: flank pain, difficulty urinating, dysuria, urinary frequency, urinary urgency, urinary hesitancy, urinary dribbling, difficulty starting urination, change in urine stream, nocturia or hematuria Musc: Denies: neck pain, back pain, extremity pain, joint pain, joint swelling, joint redness, joint stiffness or limited range of motion Neuro: Denies: headache(s), numbness in extremities, weakness in extremities, sensory changes, lack of coordination, difficulty walking, frequent falls, dizziness, vertigo, confusion, Slurred speech present, difficulty communicating thoughts or seizure-like activity Psych: Denies: anxiety, depression, mood swings, panic attacks, hopelessness or irritability Endo: Denies: polyuria, polydipsia, tired all the time, cold intolerance, excessive sweating, flushing or heat intolerance Sebastian/Lymph: Denies: easy bruising or easy bleeding All/Imm: Denies: tongue swelling, facial swelling or acute wheezing Medications/Allergies Home Medications Medication Instructions Recorded Confirmed Last Taken Type atorvastatin 40 mg tablet 40 mg PO DAILY@2100 11/22/19 09/10/23 05/29/23 History nitroglycerin 0.4 mg sublingual 0.4 mg sublingual Q5M PRN Chest 11/22/19 09/10/23 03/21/23 History tablet (Nitrostat) Pain ferrous fumarate 325 mg (106 mg 325 mg PO DAILY 04/08/22 09/10/23 05/29/23 History iron) tablet finasteride 5 mg tablet 5 mg PO DAILY 04/08/22 09/10/23 05/29/23 History albuterol sulfate 90 mcg/actuation 1 inh inhalation QID PRN shortness 11/14/22 09/10/23 03/21/23 Rx aerosol inhaler (Ventolin HFA) of breath or wheezing #8.5 grams acyclovir 200 mg capsule 200 mg PO 5XD PRN outbreaks 03/28/23 09/10/23 Unknown History calcitriol 0.25 mcg capsule See Rx Instructions .Route .COMPLEX 03/28/23 09/10/23 05/27/23 History cholecalciferol (vitamin D3) 50 100 mcg PO DAILY 03/28/23 09/10/23 05/29/23 History mcg (2,000 unit) tablet (Vitamin D3) pantoprazole 40 mg tablet,delayed 40 mg PO DAILY 03/28/23 09/10/23 05/29/23 History release insulin aspart U-100 100 unit/mL See Rx Instructions .Route 04/18/23 09/10/23 05/29/23 11:30 Rx (3 mL) subcutaneous pen (Novolog .COMPLEX #15 mL FlexPen U-100 Insulin aspart) aspirin 81 mg tablet,delayed 81 mg PO DAILY 05/01/23 09/10/23 05/29/23 History release citalopram 30 mg capsule 30 mg PO DAILY 05/01/23 09/10/23 05/29/23 History cyanocobalamin (vitamin B-12) 1,000 mcg SUBCUT Q1M 05/01/23 09/10/23 05/02/23 History 1,000 mcg/mL injection solution magnesium hydroxide 400 mg/5 mL 30 ml PO DAILY PRN Constipation 05/01/23 09/10/23 Unknown History oral suspension (Milk of Magnesia) sodium phosphates 19 gram-7 118 ml MT DAILY PRN Constipation 05/01/23 09/10/23 Unknown History gram/118 mL enema (Fleet Enema) alprazolam 0.25 mg tablet 0.25 mg PO DAILY PRN Anxiety 05/17/23 09/10/23 05/29/23 11:45 History bisacodyl 10 mg rectal suppository 10 mg MT DAILY PRN Constipation 05/17/23 09/10/23 Unknown History quetiapine 25 mg tablet (Seroquel) 25 mg PO BEDTIME 05/17/23 09/10/23 05/28/23 History mecobalamin (vitamin B12) 1,000 1,000 mcg PO DAILY #60 tabs 05/20/23 09/10/23 05/29/23 Rx mcg chewable tablet (B12 Active) apixaban 5 mg tablet 5 mg PO BID 05/29/23 09/10/23 05/29/23 18:00 History Allergies Allergy/AdvReac Type Severity Reaction Status Date / Time Penicillins Allergy Unknown Unknown Verified 12/03/23 02:43 PFSH Acute PFSH: Medical History Renal failure (ARF), acute on chronic AMS (altered mental status) Metabolic encephalopathy Expressive aphasia End stage renal disease Right leg DVT Iliac DVT (deep venous thrombosis) Pleural effusion, left Systolic CHF CHRISTY (obstructive sleep apnea) Eosinophilic asthma History of stroke BPH (benign prostatic hyperplasia) Myocardial infarct ASHD (arteriosclerotic heart disease) Diabetes 1.5, managed as type 2 HTN (hypertension) Hyperlipidemia Surgical History History of knee replacement (~2014) History of shoulder replacement S/P shoulder replacement S/P knee replacement H/O esophagogastroduodenoscopy (09/26/20) History of colonoscopy (09/26/20) S/P PTCA (percutaneous transluminal coronary angioplasty) Family History Mother Dementia Denies family history of Family history of premature coronary artery disease Social History Smoking and tobacco/nicotine status: former use of tobacco/nicotine Quit status (tobacco/nicotine): has quit using Year quit tobacco: 1971 Former quit date comment: 2ppd x 10 years Alcohol intake: never Household members: spouse Marital status: service: No Current occupational status: retired Vitals/I&O/Wt Last Vital Signs Temp 98.0 F 07/11/24 14:47 Pulse 116 H 07/11/24 16:30 Resp 18 07/11/24 16:30 BP 106/80 07/11/24 16:30 Pulse Ox 99 07/11/24 16:30 07/11/24 07/11/24 07/11/24 06:59 14:59 22:59 Intake Total 1026.126 / 1026.126 Balance 1026.126 / 1026.126 Physical Exam Narrative: General: No acute distress, AO x3 HEENT: PERRLA, pupils bilaterally equal and reactive Chest: Bilateral bronchial breath sounds all over lung mendiola with decreased air entry bilaterally in lower zones CVS: S1-S2 irregularly irregular, tachycardia,No murmur, no gallops, no rubs Abdomen: Soft, nontender, no organomegaly, bowel sounds present Neuro: No focal deficits, no facial deformity, AO x3, power 5/5 in all limbs Data 07/11/24 15:00 07/11/24 15:00 Micro: Microbiology 07/11/24 17:46 Blood Culture - Preliminary Blood SPECIMEN COLLECTED 07/11/24 17:40 Blood Culture - Preliminary Blood SPECIMEN COLLECTED A&P Assessment and plan (1) Atrial fibrillation with RVR: Not controlled with Cardizem drip. Switch to amiodarone drip after 150 mg IV bolus. Target heart rate less than 100 bpm. Will uptitrate other medications or add metoprolol depending on response. Hold off on Eliquis given concerns for acute anemia. Check echocardiogram once heart rate below 100. (2) Acute anemia: Baseline hemoglobin seems to be on 9.5-10. Currently 7.5. Patient denies any concerns for melena. Last bowel movement around 4 days ago. Check iron panel, vitamin B12, folate level. Transfuse 1 unit of PRBC. Target hemoglobin more than 8 given concerns for congestive heart failure. IV Lasix around blood transfusion. Check stool for occult blood. IV Protonix 40 mg twice daily. (3) Shortness of breath: Could be in setting of bilateral pleural effusion versus CHF from acute anemia. Check CT chest. Viral panel negative for RSV, COVID, flu. Check sputum culture, urine Legionella, procalcitonin, bacterial antigen. Empirically start patient on treatment for community-acquired pneumonia with IV ceftriaxone and oral azithromycin. Patient does have leukocytosis and pleural effusion. Will plan for thoracentesis to rule out empyema. Oxygen supplementation keeping saturation over 90%. (4) Pleural effusion: As above. (5) End stage renal disease: Baseline creatinine seems to be 4-5.6. Currently 4.4. Seems patient had stopped intermittent dialysis and port was removed earlier this year. Will confirm with patient. Medical reconciliation done for nephrotoxic drugs. Check urine lites, urine creatinine, urine eosinophils. Start on oral bicarb supplementation. Check magnesium, phosphorus level. Check PTH. (6) HTN (hypertension): Goal blood pressure less than 140/90 MAG with mean over 65. Currently off antihypertensive. Continue to monitor. (7) S/P PTCA (percutaneous transluminal coronary angioplasty): Check troponin cycle. Continue with home dose of aspirin, statin. Check A1c, lipid panel. Echocardiogram as above. (8) Diabetes 1.5, managed as type 2: Check A1c. Insulin sliding scale. Continue with home dose of Lantus. Plan CODE STATUS: Confirmed with the patient. He states he would want complete resuscitation if and when needed. Full code. Paperwork from longterm she is a DNR. Will reconfirm. States daughter Ms. Velasco will be the DPOA. Carb consistent renal nondialysis diet Protonix will be sufficient for PUD prophylaxis SCD for DVT prophylaxis Attestations Medical Necessity Statement*: Admission for more than 2 midnights for management of A-fib with RVR, shortness of breath with concerns for congestive heart failure, acute anemia in a patient with end-stage renal disease not on hemodialysis Diagnoses Atrial fibrillation with RVR I48.91 Acute anemia D64.9 Shortness of breath R06.02 Pleural effusion J90 End stage renal disease N18.6 HTN (hypertension) I10 S/P PTCA (percutaneous transluminal coronary angioplasty) Z98.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
--- NOTE | 2024-07-11 18:35 | ECG_ITS ---
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 Measurements Intervals [place] Rate: 114 P: 50 MN: 155 QRS: 12 QRSD: 93 T: 35 QT: 334 QTc: 460 Interpretive Statements SINUS TACHYCARDIA WITH FREQUENT SUPRAVENTRICULAR PREMATURE COMPLEXES POSSIBLE LEFT ATRIAL ENLARGEMENT [-0.1mV P-WAVE IN V1/V2] INCOMPLETE RIGHT BUNDLE BRANCH BLOCK [90+ ms QRS DURATION, TERMINAL R IN V1/V2, 40+ ms S IN I/aVL/V4/V5/V6] SEPTAL MYOCARDIAL INFARCTION , PROBABLY OLD [40+ ms Q WAVE IN V1/V2] Compared to ECG 07/11/2024 14:52:49 Incomplete right bundle-branch block now present Myocardial infarct finding still present Electronically Signed On 07-11-2024 22:23:25 [employer] by Meghan Gillespie M.D. [id number]
[2024-07-11 19:09] LABS: Troponin(5th) Baseline 231 ng/L (0-15)
--- NOTE | 2024-07-11 20:35 | ECG_ITS ---
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 Measurements Intervals [place] Rate: 116 P: 49 MT: 164 QRS: -29 QRSD: 91 T: 62 QT: 329 QTc: 457 Interpretive Statements SINUS TACHYCARDIA WITH OCCASIONAL SUPRAVENTRICULAR PREMATURE COMPLEXES INCOMPLETE RIGHT BUNDLE BRANCH BLOCK [90+ ms QRS DURATION, TERMINAL R IN V1/V2, 40+ ms S IN I/aVL/V4/V5/V6] ANTEROSEPTAL MYOCARDIAL INFARCTION , OF INDETERMINATE AGE [40+ ms Q WAVE IN V1-V4] Compared to ECG 07/12/2024 01:53:37 Incomplete right bundle-branch block now present Myocardial infarct finding still present Electronically Signed On 07-12-2024 19:31:56 [employer] TECHNICIAN by Meghan Gillespie M.D. [id number]
[2024-07-11 21:20] LABS: Glucose Point of Care 161 mg/dL (70-110)
[2024-07-11] MEDS: ipratropium 0.5 mg/2.5 mL Neb INHALATION (21:45)
[2024-07-11] MEDS: levalbuterol 0.63 mg/3 mL Neb INHALATION (21:45)
[2024-07-11] MEDS: budesonide 0.5 mg/2 mL Neb INHALATION (21:45)
[2024-07-11] MEDS: quetiapine 25 mg Tablet PO (21:51)
[2024-07-11] MEDS: atorvastatin 40 mg Tablet PO (21:51)
[2024-07-11] MEDS: sodium bicarbonate 650 mg Tablet PO (21:51)
[2024-07-11] MEDS: FUROsemide 10 mg/mL SDV 4mL 40 MG IVP (21:53)
[2024-07-11] MEDS: insulin lispro 100 unit/1 mL SUBCUT (22:30)
[2024-07-11 23:06] LABS: Bilirubin Urine Negative (Negative); Blood Urine 2+ (Negative); Glucose Urine UA Trace (Normal); Ketones Urine Negative (Negative); Leukocyte Esterase Urine Negative (Negative); Nitrate Urine Negative (Negative); Protein Urine 2+ (Negative); Specific Gravity, Urine 1.014 (1.005-1.030); Urine Appearance Clear (CLEAR); Urine Color Yellow (Yellow); Urobilinogen Urine 0.2 mg/dL (Negative)
[2024-07-11 23:12] LABS: Add Urine Microscopic? YES; Bacteria Urine None Seen /hpf; Hyaline Casts Urine 4.95 /lpf; Squamous Epithelial Cell Urine 0-5 /hpf (0-5); Universal Test for UA Present (0); WBC Urine 0-5 /hpf (0-5)
[2024-07-11 23:20] LABS: Potassium, Radom Urine 56 mmol/L; Urine Random Chloride 30 mmol/L; Urine Random Sodium 32 mmol/L
[2024-07-11 23:30] LABS: Add Urine Culture? No
[2024-07-12] VITALS (37 sets, daily range): BP systolic 114–159; BP diastolic 69–114; PULSE 85–145; RESP 14–30; TEMP 36.4–37.1; O2SAT 83–99
[2024-07-12 00:24] LABS: D Dimer 0.68 ug/mLFEU (0-0.59)
[2024-07-12 00:28] LABS: MRSA PCR OZH (swab) MRSA Detected (Negative)
[2024-07-12 00:28] LABS: Troponin 5 6HR 260.2 ng/L (0-15); Troponin 5 6HR Delta 29.2 ng/L (0-12)
[2024-07-12] MEDS: ipratropium 0.5 mg/2.5 mL Neb INHALATION ×3 (01:46→20:32)
[2024-07-12] MEDS: levalbuterol 0.63 mg/3 mL Neb INHALATION ×3 (01:46→20:31)
--- NOTE | 2024-07-12 01:53 | ECG_ITS ---
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 Measurements Intervals [place] Rate: 126 P: 55 SD: 165 QRS: -26 QRSD: 86 T: 63 QT: 294 QTc: 426 Interpretive Statements SINUS TACHYCARDIA WITH FREQUENT SUPRAVENTRICULAR PREMATURE COMPLEXES POSSIBLE RIGHT VENTRICULAR CONDUCTION DELAY [RSR (QR) IN V1/V2] ANTEROSEPTAL MYOCARDIAL INFARCTION , OF INDETERMINATE AGE [40+ ms Q WAVE IN V1-V4] Compared to ECG 07/11/2024 18:52:19 Incomplete right bundle-branch block no longer present Myocardial infarct finding still present Electronically Signed On 07-12-2024 19:31:34 [employer] WORK[employer] by Meghan Gillespie M.D. [id number]
[2024-07-12 03:45] LABS: Basophils % 0.1 %; Eosinophils % 0.1 %; Hematocrit 25.8 % (37-53); Lymphocytes # 1.2 10^3/uL (0.8-4.8); Lymphocytes % 7.4 %; Mean Corpuscular HGB Conc 31.4 g/dL (30-55); Mean Corpuscular Hemoglobin 30.1 pg (27-33); Mean Corpuscular Volume 95.9 fl (82-101); Mean Platelet Volume 9.5 fL (7.4-10.4); Monocytes # 1.5 10^3/uL (0.2-0.9); Monocytes % 9.1 %; Neutrophils # 13.55 10^3/uL (1.8-7.7); Neutrophils % 82.6 %; Nucleated Red Blood Cells % 0 %; Platelet Count 392 10^3/cmm (157-399); Red Blood Count 2.69 10^6/uL (3.85-5.65); Red Cell Distribution Width 14.7 % (12.1-15.1); White Blood Count 16.41 10^3/uL (3.29-11.43)
[2024-07-12 04:29] LABS: Chol HDL Ratio 3.29 mg/dL (1.0-5.00); Cholesterol 181 mg/dL (0-200); HDL Cholesterol 55 mg/dL (60-100); LDL Cholesterol Calculated 109 mg/dL (50-129); LDL HDL Ratio 1.98 RATIO (0.00-3.22); Procalcitonin 0.15 ng/mL (0-0.5); Triglycerides 84 mg/dL (0-150)
[2024-07-12 04:30] LABS: Alanine Aminotransferase 10 U/L (0-41); Albumin Level 3.9 g/dL (3.5-5.2); Alkaline Phosphatase 65 U/L (40-130); Anion Gap 23.3 (5-19); Aspartate Amino Transferase 10 U/L (0-40); Blood Urea Nitrogen 54 mg/dL (8-23); Calcium 9.1 mg/dL (8.5-10.5); Carbon Dioxide 15 mmol/L (22-29); Chloride 104 mmol/L (98-107); Creatinine Clr Calc Pharmacy 15.1822; Globulin 2.7 g/dL (1.3-4.6); Glucose 79 mg/dL (65-115); Magnesium 2.2 mg/dL (1.7-2.3); Osmolality Calculated 300 mOsm/kg (285-295); Phosphorus 5.5 mg/dL (2.5-4.5); Potassium 4.3 mmol/L (3.5-5.1); Sodium 138 mmol/L (136-145); Total Bilirubin 0.4 mg/dL (0.15-1.2); Total Protein 6.6 g/dL (6.6-8.7)
[2024-07-12 04:37] LABS: Estmated Average Glucose 105; Folate Level 8.6 ng/mL (4.5-32.2); Hemoglobin A1C 5.3 % (4.0-6.0)
--- NOTE | 2024-07-12 06:00 | US_ITS ---
WS: [id number] ULTRASOUND-GUIDED THORACENTESIS, LEFT HISTORY: bl pleural effusion Procedure, risks, and complications were explained to the patient. With the patient in an upright pos ition, the skin over the LEFT posterior thorax was cleansed with ChloraPrep and anesthetized with 1% buffered lidocaine. A 5 Hungarian Yueh needle is inserted into the pleural fluid without complication. A pproximately 1100 cc of clear pleural fluid is removed without difficulty. No complications. Chest radiograph to follow. / thoracentesis [id number] IMPRESSION: 1. LEFT thoracentesis yielding 1100 cc of fluid. 2. Chest radiograph to follow to evaluate for pneumothorax.
[2024-07-12] MEDS: pantoprazole 40 mg SDV IVP ×2 (06:10→17:15)
[2024-07-12 06:34] LABS: Glucose Point of Care 93 mg/dL (70-110)
[2024-07-12] MEDS: budesonide 0.5 mg/2 mL Neb INHALATION ×2 (08:18→20:31)
[2024-07-12] MEDS: phosphorus 250 mg Tablet PO ×2 (09:37→17:15)
[2024-07-12] MEDS: FUROsemide 10 mg/mL SDV 10mL 60 MG IVP (09:37)
[2024-07-12] MEDS: aspirin 81 mg EC Tablet PO (09:38)
[2024-07-12] MEDS: sodium bicarbonate 650 mg Tablet PO ×3 (09:38→20:40)
[2024-07-12] MEDS: dilTIAZem 60 mg Tablet PO ×3 (09:38→20:40)
[2024-07-12] MEDS: finasteride 5 mg Tablet PO (09:38)
[2024-07-12] MEDS: azithromycin 250 mg Tablet 500 MG PO (09:38)
[2024-07-12] MEDS: citalopram 20 mg Tablet PO (09:38)
--- NOTE | 2024-07-12 10:30 | USCV_ITS ---
Jhon Marcos Age: 79 Gender: M : 1945 Exam Date: 07/12/2024 13:25 Ordering Phys: Baljit Marcelo MD Technologist: Exam Location: [facility] [place]ication: sob chf BP: 147 / 86 HR: 94 Rhythm: Sinus Technical Quality: Adequate MEASUREMENTS (Male / Female) Normal Values 2D ECHO LV Diastolic Diameter PLAX 4.9 cm 4.2 - 5.9 / 3.9 - 5.3 cm IVS Diastolic Thickness 1.3 cm 0.6 - 1.0 / 0.6 - 0.9 cm IVS Systolic Thickness 1.9 cm LVPW Diastolic Thickness 1.5 cm 0.6 - 1.0 / 0.6 - 0.9 cm LVPW Systolic Thickness 1.9 cm LVOT Diameter 2.1 cm LV Ejection Fraction 2D Teich 59.7 % LV Ejection Fraction MOD 4C 32.1 % LV Ejection Fraction MOD 2C 40.5 % LV Ejection Fraction 2C AL 40.0 % LA Diameter 4.9 cm RA Systolic Volume 4C AL 40.8 ml RA Systolic Volume 4C MOD 39.2 ml Aorta at Sinotubular Diameter 3.3 cm IVC Diameter 2.2 cm M-MODE LA Ao Ratio MM 1.2 AV Cusp Separation MM 2.1 cm DOPPLER AV Peak Velocity 171.0 cm/s LVOT Peak Velocity 91.0 cm/s AV Area Cont Eq vti 1.4 cm squared AV Area Cont Eq pk 1.8 cm squared MV Peak Velocity 135.0 cm/s MV Area PHT 5.5 cm squared Mitral E to A Ratio 2.8 TR Peak Velocity 127.0 cm/s TR Peak Gradient 6.5 mmHg TV Peak E Velocity 124.0 cm/s PV Peak Velocity 98.0 cm/s FINDINGS Left Ventricle Left ventricle is normal in size. LV systolic function has mildly reduced with EF of 40 to 45%. Mild global hypokinesis. Right Ventricle Normal in size and function Right Atrium Normal in size Left Atrium Normal in size Mitral Valve Structurally normal mitral valve. Moderate to severe mitral regurgitation. Aortic Valve Structurally normal aortic valve. No significant stenosis. Tricuspid Valve Insufficient TR jet to evaluate RVSP. Pulmonic Valve Not well-visualized. Pericardium Trace pericardial effusion Aorta Normal in size IVC Appears to be dilated CONCLUSIONS LV systolic function is mildly reduced with EF of 40 to 45%. Moderate to severe mitral regurgitation. Trace pericardial effusion. IVC appears to be dilated Compared to prior echocardiogram from 2022, patient now has moderate to severe mitral regurgitation Pieter Gomez MD (Electronically Signed) Final Date: 13 July 2024 09:59 S
[2024-07-12] MEDS: morphine 4 mg/mL SDV 1 mL 2 MG IVP ×2 (12:54→18:39)
[2024-07-12 13:00] LABS: INR 1.05 (0.8-1.2)
--- NOTE | 2024-07-12 13:43 | P.PN_ITS ---
Subjective 2 Subjective: No acute overnight. Today morning again seen sitting up in bed. States feeling slightly better. Remains in A-fib with RVR. On 2 to 3 L of oxygen supplementation. Currently on amiodarone drip at 0.5. Denies any nausea, vomiting, headache. Vitals/I&O/Wt Last Vital Signs Temp 98.6 F 07/12/24 12:00 Pulse 117 H 07/12/24 12:00 Resp 18 07/12/24 12:54 BP 157/85 07/12/24 12:00 Pulse Ox 95 07/12/24 12:54 O2 Del Method Nasal Cannula 07/12/24 12:00 O2 Flow Rate 2 07/12/24 12:00 07/11/24 07/12/24 07/12/24 22:59 06:59 14:59 Intake Total 1276.126 / 8206.103 8283.203 / 2373.329 297.758 / 297.758 Output Total 550 / 550 Balance 1276.126 / 1276.126 547.203 / 1823.329 297.758 / 297.758 Weight last 48 hrs Weight 92.034 kg Weight 91.172 kg Physical Exam 2 Narrative: General: No acute distress, AO x3 HEENT: PERRLA, pupils bilaterally equal and reactive Chest: Bilateral bronchial breath sounds all over lung mendiola with decreased air entry bilaterally in lower zones CVS: S1-S2 irregularly irregular, tachycardia,No murmur, no gallops, no rubs Abdomen: Soft, significant midline umbilical hernia, nontender, no organomegaly, bowel sounds present Neuro: No focal deficits, no facial deformity, AO x3, power 5/5 in all limbs Urinary Catheter Management: Conteh: Cath Placed During This Visit: yes Urinary Catheter Date of Insertion: 07/11/24 Urinary Catheter Time of Insertion: 22:00 Data 07/12/24 03:30 07/12/24 03:30 Micro: Microbiology 07/11/24 22:00 Bacterial Antigens - Final Urine Kidney 07/11/24 17:46 Blood Culture - Preliminary Blood SPECIMEN COLLECTED 07/11/24 17:40 Blood Culture - Preliminary Blood SPECIMEN COLLECTED A&P Assessment and plan (1) Atrial fibrillation with RVR: Continue with amiodarone drip for now. Add Cardizem 60 mg every 6 hourly. Target heart rate below 100. Uptitrate accordingly. On reconciliation of home medication it seems patient is not on anticoagulation anymore. Patient is not aware why anticoagulation was discontinued. He does have significant anemia currently. Check echocardiogram once heart rate below 100. (2) Acute anemia: Baseline hemoglobin seems to be on 9.5-10. Currently 7.5. Patient denies any concerns for melena. Last bowel movement around 4 days ago. Appreciate iron panel, vitamin B12, folate level. Post 1 unit of blood transfusion. Target hemoglobin more than 8 given concerns for congestive heart failure. Start on IV iron supplementation. Check stool for occult blood. IV Protonix 40 mg twice daily. (3) Shortness of breath: Could be in setting of bilateral pleural effusion versus CHF from acute anemia. Appreciate CT chest with concerns of bilateral pleural effusion with possible atelectasis versus pneumonia along with concerns for significant cardiomegaly. Viral panel negative for RSV, COVID, flu. Check sputum culture. Negative urine bacterial antigen. MRSA swab positive. Continue with IV ceftriaxone and oral azithromycin. Add linezolid 600 mg oral twice daily. Plan for thoracentesis today. Plan to rule out empyema. Oxygen supplementation keeping saturation over 90%. (4) Systolic CHF: Concerns of congestive heart fail last echocardiogram 4. showed an EF of 40 to 45% with global LV hypokinesia, mild TR. IV Lasix 60 mg one-time. Will follow-up urine output. Depending on the urine output will add metolazone 5 mg orally. Conteh catheterization. (5) Pleural effusion: As above. (6) End stage renal disease: Baseline creatinine seems to be 4-5.6. Currently 4.4. Seems patient had stopped intermittent dialysis and port was removed earlier this year. Patient states he does not want to have any further hemodialysis. Medical reconciliation done for nephrotoxic drugs. Appreciate urine lites, urine creatinine, urine eosinophils. Continue on oral bicarb supplementation. Add Neutra-Phos. (7) HTN (hypertension): Goal blood pressure less than 140/90 mmHg with mean over 65. Blood pressure stable. Adding Cardizem as above. Continue to monitor. (8) S/P PTCA (percutaneous transluminal coronary angioplasty): Baseline troponin elevated. Patient does have significant anemia. Denies any chest pain. Will follow-up echocardiogram and then plan for heparin if needed. If hemoglobin remained stable within next 24 hours can plan for heparin drip accordingly. Patient was on anticoagulation in the past but was discontinued for anemia recently. Continue with home dose of aspirin, statin. Appreciate A1c, lipid panel. Echocardiogram as above. 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 Insulin sliding scale. Hold off on Lantus for now. Hypoglycemia protocol. Plan D-dimer elevated. He does have a history of DVT in the past. Check lower limb Dopplers. Leukocytosis: He was a leukocytosis with left shift. Does not give history of urinary discomfort or diarrhea. Could be reactive in setting of anemia. MRSA positive. For now continue with treatment for committee acquired pneumonia. Add linezolid as above. Getting CT abdomen pelvis to rule out abdominal pathology. Does have significant umbilical hernia. Ruling out empyema as above. CODE STATUS: Confirmed with patient again today. He does not want any kind of resuscitation. He would like to be DNR/DNI. DPOA will be his daughter Ms. Velasco. Carb consistent renal nondialysis diet Protonix will be sufficient for PUD prophylaxis SCD for DVT prophylaxis Attestations 2 Medical Necessity Statement*: Requires further hospitalization for management of acute on chronic hypoxic respiratory failure in setting of congestive heart failure, bilateral pleural effusion, A-fib with RVR in a patient with history of end-stage renal disease not on hemodialysis anymore, leukocytosis while empyema is ruled out Diagnoses Atrial fibrillation with RVR I48.91 Acute anemia D64.9 Shortness of breath R06.02 Systolic CHF I50.20 Pleural effusion J90 End stage renal disease N18.6 HTN (hypertension) I10 S/P PTCA (percutaneous transluminal coronary angioplasty) Z98.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
--- NOTE | 2024-07-12 14:43 | XR_ITS ---
WS: [id number] PORTABLE CHEST HISTORY: post thoracentesis COMPARISON: 07/11/2024 Status post LEFT thoracentesis. No pneumothorax. Small residual LEFT pleural effusion. Compressive atelectasis at the lung bases. There is also a tiny RIGHT pleural effusion. Cardiac size: Mildly enlarged cardiac silhouette. Mediastinum/Aorta: Mild atherosclerosis aorta. Prior RIGHT humeral head replacement. XR/XR chest 1V portable [id number] IMPRESSION: 1. Status post LEFT thoracentesis. No pneumothorax. 2. Small bilateral pleural effusions.
--- NOTE | 2024-07-12 15:08 | CTR_ITS ---
PROCEDURE INFORMATION: Exam: CT Abdomen And Pelvis Without Contrast Exam date and time: 07/12/2024 8:59 PM Age: 79 years old Clinical indication: Condition or disease; Kidney or ureter condition; Acute renal insufficiency; Additional info: Renal dysfunction, hiatal hernia, TECHNIQUE: Imaging protocol: Computed tomography of the abdomen and pelvis without contrast. Radiation optimization: All CT scans at this facility use at least one of these dose optimization techniques: automated exposure control; mA and/or kV adjustment per patient size (includes targeted exams where dose is matched to clinical indication); or iterative reconstruction. COMPARISON: CT abdomen pelvis w con* [id number] 05/30/2023 3:13 PM RADIATION DOSE METRICS: Total DLP (mGy-cm): 737.12 FINDINGS: Tubes, catheters and devices: A balloon bladder catheter is present. Lungs: Bilateral lower lobe atelectasis. Pleural spaces: There is a moderate right pleural effusion and mild left pleural effusion. Heart: Decreased density of the blood pool when compared to the ventricular wall, suggestive of anemia. Coronary arteries: There is moderate atherosclerotic calcification of the coronary arteries. Liver: There are calcified granulomas in the liver. Gallbladder and biliary ducts: Normal. No calcified stones. No ductal dilation. Pancreas: Normal. No ductal dilation. Spleen: There are multiple calcified granulomas of the spleen. Adrenal glands: Stable nodular thickening of bilateral adrenal glands. Kidneys and ureters: Bilateral simple renal cysts measuring up to 4.9 cm in the lower pole of the right kidney. There is no evidence of hydronephrosis. Stomach and bowel: Dehiscence of the anterior abdominal wall containing small and large bowel loops with no bowel obstruction. Appendix: No evidence of appendicitis. Intraperitoneal space: There is a small amount of free intraperitoneal fluid present. Vasculature: Calcified atheromas of the visualized arteries. There are numerous benign phleboliths in the pelvis. Lymph nodes: Unremarkable. No enlarged lymph nodes. Urinary bladder: Unremarkable as visualized. Reproductive: Unremarkable as visualized. Bones/joints: The pubic symphysis demonstrates mild degenerative changes. There are mild degenerative changes of the sacroiliac joints. There are mild degenerative changes of the hip joints. The lumbar spine demonstrates moderate degenerative changes at multiple levels. Chronic fracture deformity of the right 9th, 8th and 7th ribs. Soft tissues: Fat containing bilateral inguinal hernias. CT/CT abdomen pelvis wo con [id number] IMPRESSION: No hydronephrosis on either side to suggest obstructive uropathy. COMMENTS: Consistent with the [employer]'s Incidental Findings Committee white paper (J Am Jania Radiol 2018): Any incidental renal lesion less than 1 cm or classified as too small to characterize, or any incidental cystic renal lesion characterized as simple-appearing, is likely benign. No follow-up imaging is recommended for these lesions per consensus recommendations based on imaging criteria.
[2024-07-12 15:17] LABS: Cyto Order Verification Order Verified; PATH Referral YES
[2024-07-12 15:20] LABS: Body Fluid WBC 235 /uL; Monocytes # Body Fluid 0.185; RBC, Body Fluid 0 10^3/uL
--- NOTE | 2024-07-12 15:20 | USCV_ITS ---
Jhon Marcos Age: 79 Gender: M : 1945 Exam Date: 07/12/2024 16:28 Ordering Phys: Baljit Marcelo MD Technologist: MARY Exam Location: [facility] [place] Indication: Elevated D-dimer HISTORY: Lower extremity pain. PROCEDURES: Venous duplex imaging was performed in bilateral lower extremities. The following venous structures were evaluated: common femoral vein, profunda vein, proximal portion of the greater saphenous vein, superficial femoral vein, and the popliteal vein. In addition, the posterior tibial and peroneal trunk were evaluated. Serial compression, augmentation maneuvers, and spectral Doppler flow evaluation were performed. FINDINGS: No evidence of DVT seen in any vessel visualized at this time. CONCLUSIONS No evidence of right lower extremity DVT. No evidence of left lower extremity DVT. Austin Martinez MD (Electronically Signed) Final Date: 13 July 2024 09:54 S
[2024-07-12] MEDS: metOLazone 5 MG Tablet PO (15:24)
[2024-07-12 15:28] LABS: Apprearance, Body Fluid CLOUDY; Color, Body Fluid YELLOW
[2024-07-12 15:39] LABS: Body Fluid Specific Gravity 1.019
[2024-07-12 15:40] LABS: pH Body Fluid 7.5
[2024-07-12 15:45] LABS: Albumin Body Fluid 1.8 g/dL; Fluid Alkaline Phos. 13 IU/L; LDH Body Fluid 57 U/L
[2024-07-12 15:46] LABS: Cholesterol Body Fluid 30 mg/dL (0-200); Total Protein Pleural Fluid 2.3 g/dL; Triglycerides Body Fluid 12 mg/dL (0-150); Uric Acid Body Fluid 6 mg/dL
[2024-07-12 16:10] LABS: Anion Gap 20.2 (5-19); Blood Urea Nitrogen 56 mg/dL (8-23); Calcium 8.7 mg/dL (8.5-10.5); Carbon Dioxide 16 mmol/L (22-29); Chloride 100 mmol/L (98-107); Creatinine Clr Calc Pharmacy 14.2333; Glucose 172 mg/dL (65-115); Lactate Dehydrogenase 152 U/L (135-225); Osmolality Calculated 294 mOsm/kg (285-295); Potassium 4.2 mmol/L (3.5-5.1); Sodium 132 mmol/L (136-145)
[2024-07-12] MEDS: iron sucrose 200 MG in sodium chloride 0.9% (100 ml) 100 ML 220 MG IV (16:14)
[2024-07-12] MEDS: cefTRIAXone 1,000 mg SDV 1000 MG IVP (17:14)
[2024-07-12] MEDS: linezolid 600 mg Tablet PO (17:15)
--- NOTE | 2024-07-12 18:40 | PC.NURSE ---
Morphine was not scanned because nurse threw it in the sharps contianer in the med room while wasting before scanning- on error.
--- NOTE | 2024-07-12 19:10 | PC.NURSE ---
Spoke with Dr. Marcelo regarding Amiodarone gtt. Patient has been on IV amiodarone almost 24hours. Asked if he wanted to continue amiodarone gtt overnight or discontinue once gtt completed. said continue IV amiodarone overnight.
[2024-07-12] MEDS: atorvastatin 40 mg Tablet PO (20:40)
[2024-07-12] MEDS: quetiapine 25 mg Tablet PO (20:40)
[2024-07-13] VITALS (17 sets, daily range): BP systolic 109–131; BP diastolic 59–82; PULSE 80–119; RESP 15–25; TEMP 36.5–36.8; O2SAT 84–100
[2024-07-13] MEDS: dilTIAZem 60 mg Tablet PO ×3 (02:29→22:21)
[2024-07-13 04:39] LABS: Basophils % 0.1 %; Eosinophils # 0.1 10^3/uL (0.0-0.8); Eosinophils % 0.8 %; Hematocrit 24.9 % (37-53); Lymphocytes # 1.6 10^3/uL (0.8-4.8); Lymphocytes % 12.3 %; Mean Corpuscular HGB Conc 31.3 g/dL (30-55); Mean Corpuscular Hemoglobin 30.4 pg (27-33); Mean Corpuscular Volume 96.9 fl (82-101); Mean Platelet Volume 9.9 fL (7.4-10.4); Monocytes # 1.2 10^3/uL (0.2-0.9); Monocytes % 9.4 %; Neutrophils # 9.65 10^3/uL (1.8-7.7); Neutrophils % 76.7 %; Nucleated Red Blood Cells % 0 %; Platelet Count 345 10^3/cmm (157-399); Red Blood Count 2.57 10^6/uL (3.85-5.65); Red Cell Distribution Width 15.2 % (12.1-15.1); White Blood Count 12.58 10^3/uL (3.29-11.43)
[2024-07-13 05:07] LABS: Alanine Aminotransferase 9 U/L (0-41); Albumin Level 3.6 g/dL (3.5-5.2); Alkaline Phosphatase 63 U/L (40-130); Anion Gap 20.7 (5-19); Aspartate Amino Transferase 8 U/L (0-40); Blood Urea Nitrogen 56 mg/dL (8-23); Calcium 8.6 mg/dL (8.5-10.5); Carbon Dioxide 17 mmol/L (22-29); Chloride 102 mmol/L (98-107); Creatinine Clr Calc Pharmacy 12.7279; Globulin 2.3 g/dL (1.3-4.6); Glucose 108 mg/dL (65-115); Osmolality Calculated 298 mOsm/kg (285-295); Potassium 3.7 mmol/L (3.5-5.1); Sodium 136 mmol/L (136-145); Total Bilirubin 0.3 mg/dL (0.15-1.2); Total Protein 5.9 g/dL (6.6-8.7)
[2024-07-13] MEDS: pantoprazole 40 mg SDV IVP ×2 (06:06→17:35)
[2024-07-13] MEDS: linezolid 600 mg Tablet PO ×2 (06:06→17:35)
[2024-07-13] MEDS: budesonide 0.5 mg/2 mL Neb INHALATION ×2 (07:48→21:42)
[2024-07-13] MEDS: ipratropium 0.5 mg/2.5 mL Neb INHALATION ×3 (07:48→21:42)
[2024-07-13] MEDS: phosphorus 250 mg Tablet PO ×2 (08:23→17:35)
[2024-07-13] MEDS: metOLazone 5 MG Tablet PO (08:23)
[2024-07-13] MEDS: aspirin 81 mg EC Tablet PO (08:23)
[2024-07-13] MEDS: sodium bicarbonate 650 mg Tablet PO ×3 (08:23→22:23)
[2024-07-13] MEDS: citalopram 20 mg Tablet PO (08:23)
[2024-07-13] MEDS: azithromycin 250 mg Tablet 500 MG PO (08:24)
[2024-07-13] MEDS: finasteride 5 mg Tablet PO (08:24)
[2024-07-13] MEDS: amiodarone 200 mg Tablet PO ×2 (10:39→17:35)
[2024-07-13] MEDS: FUROsemide 10 mg/mL SDV 10mL 60 MG IVP (11:55)
--- NOTE | 2024-07-13 13:06 | PC.OT ---
OT EVALUATION ATTEMPTED AT 0930 AM. PATIENT IS SLEEPING SOUNDLY. WILL ATTEMPT AGAIN IN P.M.
--- NOTE | 2024-07-13 13:22 | P.PN_ITS ---
Subjective 2 Subjective: Morning acute events overnight. Patient has remained hemodynamically stable and afebrile. He is back to his normal sinus rhythm. Rate controlled. States he still breathing. On 2 L of oxygen supplementation. Otherwise denies any nausea vomiting, headache. Vitals/I&O/Wt Last Vital Signs Temp 98.0 F 07/13/24 11:09 Pulse 88 07/13/24 11:09 Resp 19 H 07/13/24 11:09 BP 109/75 07/13/24 11:09 Pulse Ox 90 07/13/24 11:09 O2 Del Method Nasal Cannula 07/13/24 11:09 O2 Flow Rate 2 07/13/24 07:51 07/12/24 07/13/24 07/13/24 22:59 06:59 14:59 Intake Total 590 / 887.758 200 / 1087.758 920 / 920 Output Total 1700 / 2450 1700 / 4150 400 / 400 Balance -1110 / -1562.242 -1500 / -3062.242 520 / 520 Weight last 48 hrs Weight 90.537 kg Weight 89.403 kg Weight 92.034 kg Weight 91.172 kg Physical Exam 2 Narrative: General: No acute distress, AO x3 HEENT: PERRLA, pupils bilaterally equal and reactive Chest: Bilateral bronchial breath sounds all over lung mendiola with decreased air entry bilaterally in lower zones CVS: S1-S2 irregularly irregular, tachycardia,No murmur, no gallops, no rubs Abdomen: Soft, significant midline umbilical hernia, nontender, no organomegaly, bowel sounds present Neuro: No focal deficits, no facial deformity, AO x3, power 5/5 in all limbs Urinary Catheter Management: Conteh: Cath Placed During This Visit: yes Reason for Continuing Indwelling Catheter: Acute Urinary Retention or Obstruction Urinary Catheter Date of Insertion: 07/11/24 Urinary Catheter Time of Insertion: 22:00 Data 07/13/24 03:56 07/13/24 03:56 Micro: Microbiology 07/12/24 15:00 Gram Stain - Final Pleural Fluid Anaerobic Culture - Preliminary Body Fluid Culture - Preliminary 07/12/24 15:30 Gram Stain - Final Sputum - Expectorated Sputum Sputum Culture - Preliminary 07/11/24 17:46 Blood Culture - Preliminary Blood NEGATIVE TO DATE 07/11/24 17:40 Blood Culture - Preliminary Blood NEGATIVE TO DATE 07/11/24 22:00 Bacterial Antigens - Final Urine Kidney A&P Assessment and plan (1) Atrial fibrillation with RVR: Back in normal sinus rhythm. Continue with amiodarone. Switch to 20 mg twice daily. Stop drip. Will plan for 20 mg twice daily for next 7 days followed by 200 mg daily. Continue with Cardizem 60 mg every 6 hourly. On reconciliation of home medication it seems patient is not on anticoagulation anymore. Patient is not aware why anticoagulation was discontinued. He does have significant anemia currently. Echocardiogram pending. (2) Acute anemia: Baseline hemoglobin seems to be on 9.5-10. Hemoglobin stable for now. Patient denies any concerns for melena. Last bowel movement around 4 days ago. Appreciate iron panel, vitamin B12, folate level. Check reticulocyte count, haptoglobin today. Post 1 unit of blood transfusion. Target hemoglobin more than 8 given concerns for congestive heart failure. Continue with IV iron supplementation. Check stool for occult blood. IV Protonix 40 mg twice daily. Start on Carafate ACHS. Hemoglobin continues to trend down will consult surgery for possible colonoscopy (3) Shortness of breath: Could be in setting of bilateral pleural effusion versus CHF from acute anemia. Appreciate CT chest with concerns of bilateral pleural effusion with possible atelectasis versus pneumonia along with concerns for significant cardiomegaly. Post left-sided thoracentesis on 07/12. 1100 cc of fluid was removed. Viral panel negative for RSV, COVID, flu. Follow-up sputum culture. Negative urine bacterial antigen. MRSA swab positive. Continue with IV ceftriaxone and oral azithromycin. Add linezolid 600 mg oral twice daily. Oxygen supplementation keeping saturation over 90%. (4) Systolic CHF: Concerns of congestive heart failure. Last echocardiogram from 04/19 showed an EF of 40 to 45% with global LV hypokinesia, mild TR. Net negative in last 24 hours. Overall patient is 750 cc negative since admission. Continue with metolazone 5 mg oral daily. Repeat 60 mg of IV Lasix later in the day depending on urine output. Conteh catheterization. (5) Pleural effusion: Left-sided thoracentesis on 07/12. 1100 cc removed. Appreciate fluid studies. No concerns for empyema for now. Fluid studies consistent with transudative today. (6) End stage renal disease: Baseline creatinine seems to be 4-5.6. Renal function so far stable. Seems patient had stopped intermittent dialysis and port was removed earlier this year. Patient states he does not want to have any further hemodialysis. Medical reconciliation done for nephrotoxic drugs. Appreciate urine lites, urine creatinine, urine eosinophils. Continue on oral bicarb supplementation, Neutra-Phos. (7) HTN (hypertension): Goal blood pressure less than 140/90 mmHg with mean over 65. Blood pressure stable. Adding Cardizem as above. Continue to monitor. (8) S/P PTCA (percutaneous transluminal coronary angioplasty): Baseline troponin elevated. Patient does have significant anemia. Denies any chest pain. Will follow-up echocardiogram and then plan for heparin if needed. If hemoglobin remained stable within next 24 hours can plan for heparin drip accordingly. Patient was on anticoagulation in the past but was discontinued for anemia recently. Continue with home dose of aspirin, statin. Appreciate A1c, lipid panel. Echocardiogram as above. 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 Insulin sliding scale. Hold off on Lantus for now. Hypoglycemia protocol. Plan D-dimer elevated. He does have a history of DVT in the past. Check lower limb Dopplers. Leukocytosis: Trending down. Has remained afebrile. He was a leukocytosis with left shift. Does not give history of urinary discomfort or diarrhea. Could be reactive in setting of anemia. MRSA positive. History of UTI with VRE within the past. For now continue with treatment for community acquired pneumonia Continue IV ceftriaxone, oral azithromycin and linezolid for now. Getting CT abdomen pelvis to rule out abdominal pathology. Does have significant umbilical hernia. Empyema ruled out. CODE STATUS: Confirmed with patient again today. He does not want any kind of resuscitation. He would like to be DNR/DNI. DPOA will be his daughter Ms. Velasco. Carb consistent renal nondialysis diet Protonix will be sufficient for PUD prophylaxis SCD for DVT prophylaxis Attestations 2 Medical Necessity Statement*: Requires further hospitalization for management of acute hypoxic respiratory failure in setting of congestive heart failure, bilateral pleural effusion post thoracentesis, A-fib with RVR in a patient with history of CKD Diagnoses Atrial fibrillation with RVR I48.91 Acute anemia D64.9 Shortness of breath R06.02 Systolic CHF I50.20 Pleural effusion J90 End stage renal disease N18.6 HTN (hypertension) I10 S/P PTCA (percutaneous transluminal coronary angioplasty) Z98.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
[2024-07-13] MEDS: levalbuterol 0.63 mg/3 mL Neb INHALATION ×2 (13:58→21:42)
--- NOTE | 2024-07-13 14:59 | PC.OT ---
OT EVALUATION ATTEMPTED AGAIN IN P.M. PATIENT SLEEPING SOUNDLY. WILL ATTEMPT AGAIN TOMORROW.
[2024-07-13 16:35] LABS: LAB Peripheral Smear Sent for Review
[2024-07-13] MEDS: morphine 4 mg/mL SDV 1 mL 2 MG IVP ×2 (16:36→22:22)
[2024-07-13] MEDS: iron sucrose 200 MG in sodium chloride 0.9% (100 ml) 100 ML 220 MG IV (16:37)
[2024-07-13] MEDS: sucralfate 1 gm/10 mL Oral Liq UDC PO (16:37)
[2024-07-13] MEDS: cefTRIAXone 1,000 mg SDV 1000 MG IVP (17:34)
[2024-07-13] MEDS: atorvastatin 40 mg Tablet PO (22:21)
[2024-07-13] MEDS: quetiapine 25 mg Tablet PO (22:21)
[2024-07-14] VITALS (9 sets, daily range): BP systolic 106–132; BP diastolic 63–94; PULSE 86–105; RESP 13–24; TEMP 36.4–37.1; O2SAT 89–98; BMI 27.2
[2024-07-14] MEDS: sucralfate 1 gm/10 mL Oral Liq UDC PO ×4 (00:20→22:05)
[2024-07-14] MEDS: dilTIAZem 60 mg Tablet PO ×4 (03:29→22:05)
[2024-07-14 04:14] LABS: Basophils % 0.1 %; Eosinophils # 0.4 10^3/uL (0.0-0.8); Eosinophils % 3.7 %; Hematocrit 24.6 % (37-53); Lymphocytes # 1.8 10^3/uL (0.8-4.8); Lymphocytes % 16.7 %; Mean Corpuscular HGB Conc 31.7 g/dL (30-55); Mean Corpuscular Volume 94.6 fl (82-101); Mean Platelet Volume 9.8 fL (7.4-10.4); Monocytes % 8.7 %; Neutrophils # 7.78 10^3/uL (1.8-7.7); Neutrophils % 70.4 %; Nucleated Red Blood Cells % 0 %; Platelet Count 353 10^3/cmm (157-399); Red Cell Distribution Width 14.8 % (12.1-15.1); White Blood Count 11.04 10^3/uL (3.29-11.43)
[2024-07-14 04:38] LABS: Alanine Aminotransferase 7 U/L (0-41); Albumin Level 3.4 g/dL (3.5-5.2); Alkaline Phosphatase 56 U/L (40-130); Anion Gap 21.3 (5-19); Aspartate Amino Transferase 7 U/L (0-40); Blood Urea Nitrogen 64 mg/dL (8-23); Calcium 8.1 mg/dL (8.5-10.5); Carbon Dioxide 18 mmol/L (22-29); Chloride 99 mmol/L (98-107); Creatinine Clr Calc Pharmacy 11.8999; Globulin 2.3 g/dL (1.3-4.6); Glucose 89 mg/dL (65-115); Osmolality Calculated 298 mOsm/kg (285-295); Potassium 3.3 mmol/L (3.5-5.1); Sodium 135 mmol/L (136-145); Total Bilirubin 0.2 mg/dL (0.15-1.2); Total Protein 5.7 g/dL (6.6-8.7)
[2024-07-14] MEDS: linezolid 600 mg Tablet PO ×2 (06:47→17:54)
[2024-07-14] MEDS: pantoprazole 40 mg SDV IVP ×2 (06:47→17:53)
[2024-07-14] MEDS: ipratropium 0.5 mg/2.5 mL Neb INHALATION ×2 (07:34→13:16)
[2024-07-14] MEDS: levalbuterol 0.63 mg/3 mL Neb INHALATION ×2 (07:34→13:16)
[2024-07-14] MEDS: budesonide 0.5 mg/2 mL Neb INHALATION (07:34)
[2024-07-14] MEDS: sodium bicarbonate 650 mg Tablet PO ×3 (10:20→22:05)
[2024-07-14] MEDS: phosphorus 250 mg Tablet PO ×2 (10:20→17:53)
[2024-07-14] MEDS: potassium chloride ER 20 mEq Tablet 40 MEQ PO (10:20)
[2024-07-14] MEDS: azithromycin 250 mg Tablet 500 MG PO (10:20)
[2024-07-14] MEDS: acetaminophen 325 mg Tablet 650 MG PO ×2 (10:21→15:59)
[2024-07-14] MEDS: citalopram 20 mg Tablet PO (10:21)
[2024-07-14] MEDS: amiodarone 200 mg Tablet PO ×2 (10:21→17:53)
[2024-07-14] MEDS: aspirin 81 mg EC Tablet PO (10:21)
[2024-07-14] MEDS: finasteride 5 mg Tablet PO (10:21)
--- NOTE | 2024-07-14 13:23 | P.PN_ITS ---
Subjective 2 Subjective: No acute events overnight. Today morning patient seen laying comfortably in bed. Heart rate is stable. Down to 1 L of oxygen supplementation. States he is feeling better. Denies any nausea, vomiting, headache. Vitals/I&O/Wt Last Vital Signs Temp 98.2 F 07/14/24 11:31 Pulse 92 07/14/24 13:16 Resp 16 07/14/24 13:16 BP 117/78 07/14/24 11:31 Pulse Ox 95 07/14/24 13:16 O2 Del Method Nasal Cannula 07/14/24 13:16 O2 Flow Rate 1 07/14/24 13:16 07/13/24 07/14/24 07/14/24 22:59 06:59 14:59 Intake Total 350 / 1270 120 / 120 Output Total 1250 / 1650 700 / 2350 Balance -900 / -380 -700 / -1080 120 / 120 Weight last 48 hrs Weight 91.127 kg Weight 90.537 kg Weight 89.403 kg Physical Exam 2 Narrative: General: No acute distress, AO x3 HEENT: PERRLA, pupils bilaterally equal and reactive Chest: Bilateral bronchial breath sounds all over lung mendiola with decreased air entry bilaterally in lower zones CVS: S1-S2 irregularly irregular, tachycardia,No murmur, no gallops, no rubs Abdomen: Soft, significant midline umbilical hernia, nontender, no organomegaly, bowel sounds present Neuro: No focal deficits, no facial deformity, AO x3, power 5/5 in all limbs Urinary Catheter Management: Conteh: Cath Placed During This Visit: yes Reason for Continuing Indwelling Catheter: Other Urinary Catheter Date of Insertion: 07/11/24 Urinary Catheter Time of Insertion: 22:00 Data 07/14/24 03:26 07/14/24 03:26 Micro: Microbiology 07/12/24 15:00 Gram Stain - Final Pleural Fluid Anaerobic Culture - Preliminary Body Fluid Culture - Preliminary 07/12/24 15:30 Gram Stain - Final Sputum - Expectorated Sputum Sputum Culture - Final 07/12/24 15:00 Mycobacterial Smear - Preliminary Body Fluids - Pleura A&P Assessment and plan (1) Atrial fibrillation with RVR: Back in normal sinus rhythm. Continue with amiodarone. Switch to 20 mg twice daily. Stop drip. Will plan for 200 mg twice daily for next 7 days followed by 200 mg daily. Patient had episode of soft blood pressure yesterday evening. Change Cardizem to 60 mg every 8 hourly. On reconciliation of home medication it seems patient is not on anticoagulation anymore. Patient is not aware why anticoagulation was discontinued. He does have significant anemia currently. Echocardiogram shows an EF of 40 to 45% moderate to severe MR, trace pericardial effusion with dilated IVC (2) Acute anemia: Baseline hemoglobin seems to be on 9.5-10. Hemoglobin stable around 7.5-8.2 currently Patient denies any concerns for melena. Last bowel movement around 4 days ago. Appreciate iron panel, vitamin B12, folate level. Appreciate reticulocyte count and haptoglobin. Haptoglobin mildly elevated. Will check peripheral smear. Post 1 unit of blood transfusion. Target hemoglobin more than 8 given concerns for congestive heart failure. Continue with IV iron supplementation to finish a 5-day course for overall 1 g. Stool for occult blood not collected. IV Protonix 40 mg twice daily, Carafate ACHS. If hemoglobin continues to trend down will consult surgery for possible colonoscopy (3) Shortness of breath: Resolving. Could be in setting of bilateral pleural effusion versus CHF from acute anemia. Appreciate CT chest with concerns of bilateral pleural effusion with possible atelectasis versus pneumonia along with concerns for significant cardiomegaly. Post left-sided thoracentesis on 07/12. 1100 cc of fluid was removed. Viral panel negative for RSV, COVID, flu. Follow-up sputum culture. Negative urine bacterial antigen. MRSA swab positive. Continue with IV ceftriaxone and oral linezolid to finish a 5-day course overall. Finished 3-day course of azithromycin. On discharge can transition over to oral linezolid and cefdinir as per culture history from before. Cultures so far negative from current admission. Oxygen supplementation keeping saturation over 90%. (4) Systolic CHF: Concerns of congestive heart failure. Last echocardiogram from 04/19 showed an EF of 40 to 45% with global LV hypokinesia, mild TR. Net negative in last 24 hours. Overall patient is 750 cc negative since admission. Patient overall 2.2 L negative. Hold off on any further diuresis for now. Most likely will discharge on daily oral Lasix and or alternate days metolazone. Conteh catheterization. (5) Pleural effusion: Left-sided thoracentesis on 07/12. 1100 cc removed. Appreciate fluid studies. No concerns for empyema for now. Fluid studies consistent with transudative today. (6) End stage renal disease: Baseline creatinine seems to be 4-5.6. Renal function so far stable. Seems patient had stopped intermittent dialysis and port was removed earlier this year. Patient states he does not want to have any further hemodialysis. Medical reconciliation done for nephrotoxic drugs. Appreciate urine lites, urine creatinine, urine eosinophils. Continue on oral bicarb supplementation, Neutra-Phos. (7) HTN (hypertension): Goal blood pressure less than 140/90 mmHg with mean over 65. Blood pressure stable. Adding Cardizem as above. Continue to monitor. (8) S/P PTCA (percutaneous transluminal coronary angioplasty): Baseline troponin elevated. Patient does have significant anemia. Denies any chest pain. Will follow-up echocardiogram and then plan for heparin if needed. If hemoglobin remained stable within next 24 hours can plan for heparin drip accordingly. Patient was on anticoagulation in the past but was discontinued for anemia recently. Continue with home dose of aspirin, statin. Appreciate A1c, lipid panel. Echocardiogram as above. 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 Insulin sliding scale. Hold off on Lantus for now. Hypoglycemia protocol. Plan D-dimer elevated. He does have a history of DVT in the past. Check lower limb Dopplers. Leukocytosis: Trending down. Has remained afebrile. He was a leukocytosis with left shift. Does not give history of urinary discomfort or diarrhea. Could be reactive in setting of anemia. MRSA positive. History of UTI with VRE within the past. For now continue with treatment for community acquired pneumonia Continue IV ceftriaxone, oral azithromycin and linezolid for now. Getting CT abdomen pelvis to rule out abdominal pathology. Does have significant umbilical hernia. Empyema ruled out. CODE STATUS: Confirmed with patient again today. He does not want any kind of resuscitation. He would like to be DNR/DNI. DPOA will be his daughter Ms. Velasco. Carb consistent renal nondialysis diet Protonix will be sufficient for PUD prophylaxis SCD for DVT prophylaxis Attestations 2 Medical Necessity Statement*: Requires further hospitalization for management of A-fib with RVR, acute hypoxic respiratory failure in setting of congestive heart failure, bilateral pleural effusion, pneumonia in a patient with end-stage renal disease not on hemodialysis Diagnoses Atrial fibrillation with RVR I48.91 Acute anemia D64.9 Shortness of breath R06.02 Systolic CHF I50.20 Pleural effusion J90 End stage renal disease N18.6 HTN (hypertension) I10 S/P PTCA (percutaneous transluminal coronary angioplasty) Z98.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
[2024-07-14] MEDS: iron sucrose 200 MG in sodium chloride 0.9% (100 ml) 100 ML 220 MG IV (16:28)
[2024-07-14] MEDS: cefTRIAXone 1,000 mg SDV 1000 MG IVP (17:54)
[2024-07-14] MEDS: atorvastatin 40 mg Tablet PO (22:05)
[2024-07-14] MEDS: quetiapine 25 mg Tablet PO (22:05)
[2024-07-15] VITALS (8 sets, daily range): BP systolic 108–135; BP diastolic 61–78; PULSE 84–107; RESP 18–40; TEMP 36.8–36.9; O2SAT 91–100
[2024-07-15] MEDS: levalbuterol 0.63 mg/3 mL Neb INHALATION ×4 (03:18→14:26)
[2024-07-15] MEDS: ipratropium 0.5 mg/2.5 mL Neb INHALATION ×3 (03:19→14:26)
[2024-07-15] MEDS: linezolid 600 mg Tablet PO (05:15)
[2024-07-15] MEDS: pantoprazole 40 mg SDV IVP (05:15)
[2024-07-15 05:35] LABS: Basophils % 0.1 %; Eosinophils # 0.5 10^3/uL (0.0-0.8); Eosinophils % 4.3 %; Hematocrit 25.4 % (37-53); Lymphocytes # 1.6 10^3/uL (0.8-4.8); Mean Corpuscular HGB Conc 31.5 g/dL (30-55); Mean Corpuscular Hemoglobin 29.6 pg (27-33); Mean Corpuscular Volume 94.1 fl (82-101); Mean Platelet Volume 9.7 fL (7.4-10.4); Monocytes % 9.3 %; Neutrophils # 7.37 10^3/uL (1.8-7.7); Neutrophils % 70.9 %; Nucleated Red Blood Cells % 0 %; Platelet Count 358 10^3/cmm (157-399); Red Cell Distribution Width 14.6 % (12.1-15.1)
[2024-07-15 05:56] LABS: Alanine Aminotransferase 6 U/L (0-41); Albumin Level 3.4 g/dL (3.5-5.2); Alkaline Phosphatase 59 U/L (40-130); Anion Gap 17.1 (5-19); Aspartate Amino Transferase 7 U/L (0-40); Blood Urea Nitrogen 58 mg/dL (8-23); Calcium 8.5 mg/dL (8.5-10.5); Carbon Dioxide 20 mmol/L (22-29); Chloride 102 mmol/L (98-107); Creatinine Clr Calc Pharmacy 11.2776; Globulin 2.7 g/dL (1.3-4.6); Glucose 90 mg/dL (65-115); Osmolality Calculated 298 mOsm/kg (285-295); Potassium 3.1 mmol/L (3.5-5.1); Sodium 136 mmol/L (136-145); Total Bilirubin 0.2 mg/dL (0.15-1.2); Total Protein 6.1 g/dL (6.6-8.7)
[2024-07-15 06:07] LABS: Magnesium 2.2 mg/dL (1.7-2.3)
[2024-07-15] MEDS: sucralfate 1 gm/10 mL Oral Liq UDC PO (06:31)
[2024-07-15] MEDS: budesonide 0.5 mg/2 mL Neb INHALATION (07:31)
[2024-07-15] MEDS: sodium bicarbonate 650 mg Tablet PO (08:22)
[2024-07-15] MEDS: amiodarone 200 mg Tablet PO (08:22)
[2024-07-15] MEDS: phosphorus 250 mg Tablet PO (08:22)
[2024-07-15] MEDS: finasteride 5 mg Tablet PO (08:22)
[2024-07-15] MEDS: citalopram 20 mg Tablet PO (08:22)
[2024-07-15] MEDS: dilTIAZem 60 mg Tablet PO (08:22)
[2024-07-15] MEDS: aspirin 81 mg EC Tablet PO (08:22)
[2024-07-15] MEDS: azithromycin 250 mg Tablet 500 MG PO (08:22)
--- NOTE | 2024-07-15 12:07 | PM.DCS ---
Discharge Providers Date of Admission: 07/11/24 17:18 Date of Discharge: July 15, 2024 Attending Provider at Admission: Baljit Marcelo MD Attending Provider at Discharge: Baljit Marcelo MD Primary Care Provider: Ramiro Villavicencio MD Diagnoses at Discharge Discharge Diagnosis (1) Atrial fibrillation with RVR: Status: Acute (2) Acute anemia: Status: Acute (3) Shortness of breath: Status: Acute (4) Systolic CHF: Status: Acute (5) Pleural effusion: Status: Acute (6) End stage renal disease: Status: Acute (7) HTN (hypertension): Status: Acute (8) S/P PTCA (percutaneous transluminal coronary angioplasty): Status: Acute (9) Diabetes 1.5, managed as type 2: Status: Acute Reason for Visit Reason for Visit: afib Hospital Course Hospital Course Jhon Marcos is a 79 year old male with past medical history of type 2 diabetes mellitus, stroke, hypertension, hyperlipidemia, BPH, A-fib with RVR, DVT, [id number] [place] with cardiomyopathy with a EF of 40 to 45%, CKD not on hemodialysis anymore since September 16, 2013, perforated diverticulitis with intra-abdominal abscess post laparotomy and repair of colon perforation presents to the ER from snf today because of difficulty in breathing which has been getting worse over last 4 days officiated with cough with expectoration. Difficulty breathing is worse on talking, walking and sometimes on laying down flat. He denies any chest pain, palpitations. Denies any melena, hematemesis. States last bowel movement was around 4 days ago. Denies any abdominal pain. Patient was admitted to the hospital for evaluation and management of acute hypoxic respiratory failure along with atrial fibrillation with RVR. He was also found to be anemic more than his baseline. For A-fib with RVR his heart rate was difficult to control on Cardizem hence he was transition over to amiodarone and oral Cardizem after which his heart rate remained stable and is back into normal sinus rhythm. Currently he is doing well on amiodarone 200 mg twice daily for 1 week followed by once daily along with Cardizem 240 mg daily. For hypoxic respiratory failure it is believed his symptoms are most likely in setting of congestive heart failure along with bilateral pleural effusion. He underwent thoracentesis and 1100 cc of fluid was drained from left pleura. Empyema was ruled out. Fluid studies were consistent with transudative in nature. He was started on IV diuresis along with treatment for possible pneumonia. Patient did have some leukocytosis on admission which has resolved while being on antibiotics. Echocardiogram was done which showed an EF of 40 to 45% with global LV hypokinesia, moderate to severe MR. Patient was also found to have renal dysfunction which seems to be chronic. After discussion it seems that patient has declined any further dialysis and does not want to go on hemo and peritoneal dialysis going forward. Patient was found to be anemic for which she required monitor blood transfusion and was started on iron supplementation. His hemoglobin has remained stable after blood transfusion. He was found to be positive for occult blood. His anemia is most likely in setting of chronic renal disease. Please recheck a CBC in next 1 week. If hemoglobin trends down he should follow-up with surgeon as an outpatient for possible colonoscopy. Going forward he will be on Protonix twice daily for next 2 weeks followed by once daily and Carafate 4 times a day for next 1 month. He is been discharged back to snf in hemodynamically stable condition on oral linezolid for and cefdinir for next 5 days, amiodarone 200 mg twice daily for next 1 week followed by once daily, Cardizem 240 mg oral daily, Protonix twice daily for next 2 weeks followed by once daily Carafate 4 times a day for next 1 month. Physical Exam Narrative: General: No acute distress, AO x3 HEENT: PERRLA, pupils bilaterally equal and reactive Chest: Bilateral bronchial breath sounds all over lung mendiola with decreased air entry bilaterally in lower zones CVS: S1-S2 irregularly irregular, tachycardia,No murmur, no gallops, no rubs Abdomen: Soft, significant midline umbilical hernia, nontender, no organomegaly, bowel sounds present Neuro: No focal deficits, no facial deformity, AO x3, power 5/5 in all limbs Urinary Catheter Management: Conteh: Cath Placed During This Visit: yes Reason for Continuing Indwelling Catheter: Other Urinary Catheter Date of Insertion: 07/11/24 Urinary Catheter Time of Insertion: 22:00 Discharge Data Studies Completed and Pending Completed Studies During Hospitalization Category Date Time Status CT abdomen pelvis wo con [id number] Routine Cat Scan 07/12/24 15:[address] chest wo con [id number] Stat Cat Scan 07/11/24 17:47 Completed XR chest 1V portable [id number] Stat Exams 07/11/24 14:57 Completed XR chest 1V portable [id number] Stat Exams 07/12/24 14:43 [place] [id number] Routine Ultrasound 07/12/24 15:20 Completed CV. echo complete* [id number] Routine Ultrasound 07/12/24 10:30 Completed US thoracentesis [id number] Stat Ultrasound 07/12/24 06:00 Completed Pending at discharge Category Date Time Status Amylase, Pleural Fluid Routine Lab 07/12/24 15:00 Received Anaerobic Culture Routine Lab 07/12/24 15:00 Results Blood Culture Stat Lab 07/11/24 17:46 Results Body Fluid Culture & GS Routine Lab 07/12/24 15:00 Results Fungal Culture not HR/SK/BL Routine Lab 07/12/24 15:00 Received MAG [Magnesium] AM LABS Lab 07/16/24 04:00 Ordered MAG [Magnesium] AM LABS Lab 07/17/24 04:00 Ordered Mycobacteria, Culture w/Fluor Routine Lab 07/12/24 15:00 Results Cytology [PTH] Routine Pth 07/12/24 14:49 Received Radiology Impressions Chest CT 07/11/24 17:47 IMPRESSION: 1. Comparison CT 05/29/2023. Interval worsening of 4 chamber cardiomegaly. There is also an element of mild vascular congestion. 2. Bilateral pleural effusions with adjacent consolidations. No other acute lung findings. See discussion above. 3. Coronary calcification and other nonacute findings as above. 4. Mild dilatation of ascending aorta and main pulmonary artery, slightly worsened since most recent CT exam. Continued imaging surveillance should be considered if there is no intervention at this time. COMMENTS: Consistent with the [employer]'s Incidental Findings Committee white paper (J Am Jania Radiol 2017): Any incidental adrenal lesion less than 1 cm is likely benign. No follow-up imaging is recommended for these lesions per consensus recommendations based on imaging criteria. Further lab evaluation could be pursued if warranted based on clinical findings. Thoracentesis Ultrasound 07/12/24 06:00 IMPRESSION: 1. LEFT thoracentesis yielding 1100 cc of fluid. 2. Chest radiograph to follow to evaluate for pneumothorax. Chest X-Ray 07/12/24 14:43 IMPRESSION: 1. Status post LEFT thoracentesis. No pneumothorax. 2. Small bilateral pleural effusions. Abdomen/Pelvis CT 07/12/24 15:08 IMPRESSION: No hydronephrosis on either side to suggest obstructive uropathy. COMMENTS: Consistent with the [employer]'s Incidental Findings Committee white paper (J Am Jania Radiol 2018): Any incidental renal lesion less than 1 cm or classified as too small to characterize, or any incidental cystic renal lesion characterized as simple-appearing, is likely benign. No follow-up imaging is recommended for these lesions per consensus recommendations based on imaging criteria. Echocardiogram: CONCLUSIONS LV systolic function is mildly reduced with EF of 40 to 45%. Moderate to severe mitral regurgitation. Trace pericardial effusion. IVC appears to be dilated Compared to prior echocardiogram from 2022, patient now has moderate to severe mitral regurgitation Pieter Gomez MD (Electronically Signed) Final Date: June Laboratory Results WBC 10.40 10^3/uL (3.29-11.43) 07/15/24 05:04 RBC 2.70 10^6/uL (3.85-5.65) L 07/15/24 05:04 Hgb 8.00 g/dL (11.27-16.99) L 07/15/24 05:04 Hct 25.4 % (37-53) L 07/15/24 05:04 MCV 94.1 fl (82-101) 07/15/24 05:04 MCH 29.6 pg (27-33) 07/15/24 05:04 MCHC 31.5 g/dL (30-55) 07/15/24 05:04 RDW 14.6 % (12.1-15.1) 07/15/24 05:04 Plt Count 358 10^3/cmm (157-399) 07/15/24 05:04 MPV 9.7 fL (7.4-10.4) 07/15/24 05:04 Neut % (Auto) 70.9 % 07/15/24 05:04 Lymph % (Auto) 15.0 % 07/15/24 05:04 [place] % (Auto) 9.3 % 07/15/24 05:04 Eos % (Auto) 4.3 % 07/15/24 05:04 Baso % (Auto) 0.1 % 07/15/24 05:04 Reticulocyte % (Auto) 2.0 % (0.5-2.0) 07/13/24 03:56 Neut # (Auto) 7.37 10^3/uL (1.8-7.7) 07/15/24 05:04 Lymph # (Auto) 1.6 10^3/uL (0.8-4.8) 07/15/24 05:04 [place] # (Auto) 1.0 10^3/uL (0.2-0.9) H 07/15/24 05:04 Eos # (Auto) 0.5 10^3/uL (0.0-0.8) 07/15/24 05:04 Baso # (Auto) 0.0 10^3/uL (0.0-0.1) 07/15/24 05:04 Nucleated RBC % (auto) 0 % 07/15/24 05:04 Nucleated RBCs # 0.0 /100WBC 07/15/24 05:04 Differential Comment Yes 07/12/24 15:00 Peripher Smr Path Cons Sent for review 07/13/24 03:56 Haptoglobin 318.0 mg/L (30-200) H 07/13/24 03:56 PT 14.10 SECONDS (12.1-14.9) 07/12/24 11:30 INR 1.05 (0.8-1.2) 07/12/24 11:30 D-Dimer 0.68 ug/mLFEU (0-0.59) H 07/11/24 23:58 Sodium 136 mmol/L (136-145) 07/15/24 05:04 Potassium 3.1 mmol/L (3.5-5.1) L 07/15/24 05:04 Chloride 102 mmol/L (98-107) 07/15/24 05:04 Carbon Dioxide 20 mmol/L (22-29) L 07/15/24 05:04 Anion Gap 17.1 (5-19) 07/15/24 05:04 BUN 58 mg/dL (8-23) H 07/15/24 05:04 Creatinine 6.0 mg/dL (0.7-1.2) H* 07/15/24 05:04 GFR Calculation Not Reportable 07/15/24 05:04 Glucose 90 mg/dL (65-115) 07/15/24 05:04 POC Glucose 93 mg/dL (70-110) 07/12/24 06:31 Estimat Average Glucose 105 07/12/24 03:30 Hemoglobin A1c 5.3 % (4.0-6.0) 07/12/24 03:30 Calculated Osmolality 298 mOsm/kg (285-295) H 07/15/24 05:04 Calcium 8.5 mg/dL (8.5-10.5) 07/15/24 05:04 Phosphorus 5.5 mg/dL (2.5-4.5) H 07/12/24 03:30 Magnesium 2.2 mg/dL (1.7-2.3) 07/15/24 05:04 Iron 28 ug/dL (59-158) L 07/11/24 17:40 TIBC 280 mcg/dl 07/11/24 17:40 % Saturation 10.0 % (20-50) L 07/11/24 17:40 Unsat Iron Binding 252 ug/dL (112-347) 07/11/24 17:40 Total Bilirubin 0.2 mg/dL (0.15-1.2) 07/15/24 05:04 AST 7 U/L (0-40) 07/15/24 05:04 ALT 6 U/L (0-41) 07/15/24 05:04 Alkaline Phosphatase 59 U/L (40-130) 07/15/24 05:04 Lactate Dehydrogenase 152 U/L (135-225) 07/12/24 15:34 Troponin T Baseline 231 ng/L (0-15) H* 07/11/24 17:40 Troponin T Hi Sens 6Hr 260.2 ng/L (0-15) H 07/11/24 23:58 Troponin T Hi Sens 6Hr Delta 29.2 ng/L (0-12) H* 07/11/24 23:58 Total Protein 6.1 g/dL (6.6-8.7) L 07/15/24 05:04 Albumin 3.4 g/dL (3.5-5.2) L 07/15/24 05:04 Globulin 2.7 g/dL (1.3-4.6) 07/15/24 05:04 Triglycerides 84 mg/dL (0-150) 07/12/24 03:30 Cholesterol 181 mg/dL (0-200) 07/12/24 03:30 LDL Cholesterol, Calc 109 mg/dL (50-129) 07/12/24 03:30 HDL Cholesterol 55 mg/dL (60-100) L 07/12/24 03:30 LDL/HDL Ratio 1.98 RATIO (0.00-3.22) 07/12/24 03:30 Cholesterol/HDL Ratio 3.29 mg/dL (1.0-5.00) 07/12/24 03:30 Vitamin B12 990 pg/mL (232-1245) 07/11/24 17:40 Folate 8.6 ng/mL (4.5-32.2) 07/12/24 03:30 Procalcitonin 0.15 ng/mL (0-0.5) 07/12/24 03:30 Urine Color Yellow (Yellow) 07/11/24 22:00 Urine Appearance Clear (CLEAR) 07/11/24 22:00 Urine pH 5.0 (5-7) 07/11/24 22:00 Ur Specific [place] 1.014 (1.005-1.030) 07/11/24 22:00 Urine Protein 2+ (Negative) A 07/11/24 22:00 Urine Glucose (UA) Trace (Normal) H 07/11/24 22:00 Urine Ketones Negative (Negative) 07/11/24 22:00 Urine Blood 2+ (Negative) A 07/11/24 22:00 Urine Nitrate Negative (Negative) 07/11/24 22:00 Urine Bilirubin Negative (Negative) 07/11/24 22:00 Urine Urobilinogen 0.2 mg/dL (Negative) 07/11/24 22:00 Ur Leukocyte Esterase Negative (Negative) 07/11/24 22:00 Urine RBC 11-20 /hpf (0-2) H 07/11/24 22:00 Urine WBC 0-5 /hpf (0-5) 07/11/24 22:00 Ur Squamous Epith Cells 0-5 /hpf (0-5) 07/11/24 22:00 Amorphous Sediment Not Reportable 07/11/24 22:00 Urine Bacteria None seen /hpf (NONE) 07/11/24 22:00 Hyaline Casts 4.95 /lpf 07/11/24 22:00 Ur Random Sodium 32 mmol/L 07/11/24 22:00 Ur Random Potassium 56 mmol/L 07/11/24 22:00 Ur Random Chloride 30 mmol/L 07/11/24 22:00 Fluid Color Yellow 07/12/24 15:00 Fluid Appearance Cloudy 07/12/24 15:00 Fluid Specific Grav 1.019 07/12/24 15:00 Fluid pH 7.5 07/12/24 15:00 Fluid WBC 235 /uL 07/12/24 15:00 Fluid RBC 0 10^3/uL 07/12/24 15:00 Fld Polynuclear WBCs # 0.050 07/12/24 15:00 Fld Polynuclear WBCs % 21.300 % 07/12/24 15:00 Fl Mononucl WBCs #(Auto) 0.185 07/12/24 15:00 Fl Mononuclear % Auto 78.700 % 07/12/24 15:00 Fld Crystal Laterality Not Reportable 07/12/24 15:00 Fluid Glucose 140.0 mg/dL 07/12/24 15:00 Fluid Albumin 1.8 g/dL 07/12/24 15:00 Fluid LDH 57 U/L 07/12/24 15:00 Fluid Alk Phosphatase 13 IU/L 07/12/24 15:00 Fluid Cholesterol 30 mg/dL (0-200) 07/12/24 15:00 Fluid Triglycerides 12 mg/dL (0-150) 07/12/24 15:00 Fluid Uric Acid 6 mg/dL 07/12/24 15:00 Pleural Total Protein 2.3 g/dL 07/12/24 15:00 Nasal MRSA (PCR) Mrsa detected (Negative) A 07/11/24 22:00 Coronavirus (PCR) Negative (Negative) 07/11/24 16:15 Influenza A (PCR) Negative (Negative) 07/11/24 16:15 Influenza Type B (PCR) Negative (Negative) 07/11/24 16:15 RSV (PCR) Negative (Negative) 07/11/24 16:15 Blood Type O Positive 07/11/24 18:20 Rho(D) Type Rh positive 07/11/24 18:20 Antibody Screen Negative 07/11/24 18:20 ALONDRA, Poly Interpret Negative 07/13/24 03:56 Crossmatch See Detail 07/11/24 18:20 Vitals Last Vital Signs Temp 98.3 F 07/15/24 07:40 Pulse 103 H 07/15/24 07:40 Resp 18 07/15/24 07:40 BP 135/77 07/15/24 07:40 Pulse Ox 98 07/15/24 07:40 O2 Del Method Nasal Cannula 07/15/24 07:40 O2 Flow Rate 2 07/15/24 07:40 Discharge Plan Discharge Patient Disposition: Xfer SNF Condition: Stable Prescriptions: New atorvastatin 40 mg Tablet 20 mg PO DAILY@2100 30 Days Qty: 30 0RF linezolid 600 mg Tablet 600 mg PO Q12H Qty: 6 0RF amiodarone [Pacerone] 200 mg Tablet 200 mg PO BID Qty: 60 0RF Rx Instructions: 200 mg BID twice day for 1 week, f/b once daily sucralfate 100 mg/mL Suspension 1 g PO AC&BEDTIME 30 Days Qty: 1000 0RF cefdinir 300 mg capsule 300 mg PO BID 5 Days Qty: 10 0RF furosemide [Lasix] 40 mg tablet 40 mg PO QAM PRN (Reason: weight gain) Qty: 14 0RF Rx Instructions: Once daily for weight of more than 5 pounds. diltiazem HCl [Cardizem CD] 240 mg capsule,extended release 24hr 240 mg PO Q24H Qty: 30 0RF sodium bicarbonate 650 mg Tablet 650 mg PO BID 30 Days Qty: 60 3RF Continued nitroglycerin [Nitrostat] 0.4 mg tablet, sublingual 0.4 mg SUBLINGUAL Q5M PRN (Reason: Chest Pain) albuterol sulfate [Ventolin HFA] 90 mcg/actuation HFA aerosol inhaler 1 inh inhalation QID PRN (Reason: shortness of breath or wheezing) Qty: 8.5 3RF bisacodyl 10 mg Suppository 10 mg MI DAILY PRN (Reason: Constipation) acyclovir 200 mg capsule 200 mg PO Q12H PRN (Reason: outbreaks) Fleet Enema 19-7 gram/118 mL Enema 118 ml MI DAILY PRN (Reason: Constipation) cyanocobalamin (vitamin B-12) 1,000 mcg/mL Solution 1,000 mcg SUBCUT Q1M Rx Instructions: STARTING ON AND ENDING ON THE EVERY MONTH albuterol sulfate 2.5 mg /3 mL (0.083 %) solution for nebulization 2.5 mg inhalation Q4H PRN (Reason: SOB) trazodone 50 mg tablet 50 mg PO BEDTIME artifi.tears(hypromellose)(PF) 1.7 % Drops With Applicator 1 drp OPHTHALMIC (EYE) BID PRN (Reason: Dry Eyes) acetaminophen 325 mg Tablet 650 mg PO Q4H PRN (Reason: Pain, Mild) ondansetron HCl 4 mg tablet 4 mg PO Q4H PRN (Reason: Nausea And Vomiting) acetaminophen-codeine 300-30 mg tablet 1 - 2 tab PO Q4H PRN (Reason: Pain) docusate sodium [Colace] 100 mg Capsule 100 mg PO DAILY citalopram 20 mg tablet 20 mg PO DAILY pantoprazole 40 mg tablet,delayed release (DR/EC) 40 mg PO DAILY Qty: 60 0RF Rx Instructions: Twice daily for next 4 weeks followed by once daily Discontinued prednisone 20 mg tablet 20 mg PO DAILY Rx Instructions: 07/08/2024 - 07/13/2024 levofloxacin 500 mg tablet 500 mg PO DAILY Rx Instructions: 07/10/2024 - 07/17/2024 prednisone 10 mg Tablet 10 mg PO DAILY Rx Instructions: 07/14/2024 - 07/24/2024 Discharge Orders: Discharge Order (Routine); Ordered 07/15/24 Ordered By: Baljit Marcelo Referrals: [facility] [Outside] Ramiro Villavicencio MD [Primary Care Provider] - Discharge Diet: Cardiac and Diabetic Discharge Activity: Resume usual activity and Increase activity as tolerated Patient Instructions: Opioid Safety Activity Restrictions/Additional Instructions: Take amiodarone 200 mg twice daily for next 1 week followed by once daily. Restrict fluid intake to less than 1500 cc, salt intake to less than 2 g daily. Advised to check his weight daily at home. Is advised that weight today would be the dry weight and if body weight increases by around 5 pounds, patient is to take an extra dose of Lasix daily till body weight comes down to weight today. If not able to come down to dry body weight in 1 week, then is to call cardiology office for further recommendations. Patient was counseled in detail to take medications regularly as prescribed. Cefdinir and linezolid are the Antibiotic which should take twice daily for next 5 days. Take Protonix twice daily for next 2 weeks and then once daily going forward. Take Carafate premeals 4 times a day for next 1 month. You should have a repeat CBC and CMP done in next 1 week. Discharge Attestations Time Spent in Discharge Care*: greater than 30 min Specific Discharge Activities: educating patient, discussing with pcp/other providers, discussing with senior case manager/social workers/dc planners, documenting/other paperwork and evaluating patient/reviewing data Status at Discharge: Cognitive status at discharge: cognitively intact, Behavioral status at discharge: cooperative, Functional status at discharge: wheelchair bound, Overall status at discharge: patient is back to baseline Quality Metrics Clinical Quality Measures [ No reported AMI, CVA or VTE this stay] Coding Level of Care Code 55948 Total time (in minutes) for Discharge: 60 Diagnoses Atrial fibrillation with RVR I48.91 Acute anemia D64.9 Shortness of breath R06.02 Systolic CHF I50.20 Pleural effusion J90 End stage renal disease N18.6 HTN (hypertension) I10 S/P PTCA (percutaneous transluminal coronary angioplasty) Z98.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
--- NOTE | 2024-07-15 16:03 | PC.OT ---
OT TREATMENT HELD THIS DATE DUE TO SCHEDULED PATIENT D/C
[2024-07-16 20:30] LABS: Amylase, Pleural Fluid 12 U/L
== END 2024-07-15 16:10 | disposition skilled nursing facility (03) | DRG 308 ==
LOC: ER 17:22 → CSU 18:32
PROVIDERS: Admitting Provider Student in an Organized Health Care Education/Training Program; Emergency Provider Emergency Medicine; PCP Family Medicine; Visit Provider Student in an Organized Health Care Education/Training Program
DX: I48.91 Unspecified atrial fibrillation (principal); J96.21 Acute and chronic respiratory failure with hypoxia; I13.0 Hypertensive heart and chronic kidney disease with heart failure and stage 1 through stage 4 chronic kidney disease, or unspecified chronic kidney disease; I50.22 Chronic systolic (congestive) heart failure; J90 Pleural effusion, not elsewhere classified; I69.920 Aphasia following unspecified cerebrovascular disease; E13.22 Other specified diabetes mellitus with diabetic chronic kidney disease; N18.9 Chronic kidney disease, unspecified; E78.5 Hyperlipidemia, unspecified; N40.0 Benign prostatic hyperplasia without lower urinary tract symptoms; I42.9 Cardiomyopathy, unspecified; G47.33 Obstructive sleep apnea (adult) (pediatric); I25.10 Atherosclerotic heart disease of native coronary artery without angina pectoris; Z96.659 Presence of unspecified artificial knee joint; Z96.619 Presence of unspecified artificial shoulder joint; D63.1 Anemia in chronic kidney disease; I34.0 Nonrheumatic mitral (valve) insufficiency; I25.2 Old myocardial infarction; Z79.4 Long term (current) use of insulin; Z79.01 Long term (current) use of anticoagulants; Z86.718 Personal history of other venous thrombosis and embolism; Z22.322 Carrier or suspected carrier of Methicillin resistant Staphylococcus aureus; Z95.5 Presence of coronary angioplasty implant and graft
CPT/HCPCS: 0241U; 32555; 36415; 36416; 51702; 71045; 71250; 74176; 80048; 80053; 80061; 80503; 81001; 82042; 82150; 82274; 82436; 82465; 82607; 82746; 82945; 82962; 83010; 83036; 83540; 83550; 83615; 83735; 83986; 84075; 84100; 84133; 84145; 84157; 84300; 84315; 84478; 84484; 84560; 85025; 85045; 85378; 85610; 86403; 86850; 86880; 86900; 86920; 87015; 87040; 87070; 87075; 87102; 87116; 87205; 87206; 87801; 88112; 88305; 89050; 93005; 93306; 93970; 94640; 96365; 96372; 96375; 96376; 97166; 99291; A4222; J0283; J0456; J0696; J1756; J1815; J1940; J2270; J2405; J2470; J3490; J7030; J7050; J7614; J7626; J7644; P9016; Q0144

== ENCOUNTER 2024-08-03 22:47 | Emergency (ER) | payer MEDICARE, MEDICAID, SELFPAY ==
[2024-08-03 22:48] VITALS: BP 140/82; PULSE 91; RESP 18; TEMP 36.7; O2SAT 99
--- NOTE | 2024-08-03 23:12 | XRR_ITS ---
PROCEDURE INFORMATION: Exam: XR Chest Exam date and time: 08/03/2024 11:14 PM Age: 79 years old Clinical indication: Pain; Chest pressure; Prior surgery; Surgery date: 6+ months; Surgery type: RT shoulder cardiac stents; Additional info: Chest pain TECHNIQUE: Imaging protocol: Radiologic exam of the chest. Views: 1 view. COMPARISON: CR XR chest 1V portable [id number] 07/12/2024 2:49 PM FINDINGS: Lungs: Suspected mild bibasilar subsegmental atelectasis. Pleural spaces: Small bilateral pleural effusions. Heart/Mediastinum: Stable cardiomegaly. Bones/joints: Postoperative changes involve the right shoulder. XR/XR chest 1V portable [id number] IMPRESSION: Cardiomegaly associated with small bilateral pleural effusions likely associated with passive atelectasis.
--- NOTE | 2024-08-03 23:12 | ECG_ITS ---
[facility] 2024[facility]03 Pat Name: Jhon Marcos Department: Room: Gender: Male [employer] Operator: : 1945 Requested By: Cindy Mesa Order Number: [id number] Shannan MD: Meghan Gillespie M.D. Measurements Intervals [place] Rate: 99 P: 38 MI: 172 QRS: -12 QRSD: 94 T: 56 QT: 375 QTc: 482 Interpretive Statements SINUS RHYTHM WITH OCCASIONAL SUPRAVENTRICULAR PREMATURE COMPLEXES NONSPECIFIC ST ELEVATION [0.05+ mV ST ELEVATION] Compared to ECG 07/12/2024 06:09:13 ST (T wave) deviation now present Sinus tachycardia no longer present Incomplete right bundle-branch block no longer present Myocardial infarct finding no longer present Electronically Signed On 08-04-2024 17:17:43 [employer] by Meghan Gillespie M.D. [email or web address]
[2024-08-03 23:21] LABS: Basophils % 0.1 %; Eosinophils # 0.2 10^3/uL (0.0-0.8); Eosinophils % 1.8 %; Hematocrit 25.6 % (37-53); Lymphocytes # 1.8 10^3/uL (0.8-4.8); Lymphocytes % 14.9 %; Mean Corpuscular HGB Conc 31.3 g/dL (30-55); Mean Corpuscular Hemoglobin 30.2 pg (27-33); Mean Corpuscular Volume 96.6 fl (82-101); Mean Platelet Volume 9.6 fL (7.4-10.4); Monocytes # 0.9 10^3/uL (0.2-0.9); Monocytes % 7.3 %; Neutrophils # 8.95 10^3/uL (1.8-7.7); Neutrophils % 75.6 %; Nucleated Red Blood Cells % 0 %; Platelet Count 344 10^3/cmm (157-399); Red Blood Count 2.65 10^6/uL (3.85-5.65); Red Cell Distribution Width 15.4 % (12.1-15.1); White Blood Count 11.84 10^3/uL (3.29-11.43)
[2024-08-03 23:32] LABS: Alanine Aminotransferase 16 U/L (0-41); Alkaline Phosphatase 84 U/L (40-130); Aspartate Amino Transferase 13 U/L (0-40); Blood Urea Nitrogen 39 mg/dL (8-23); Carbon Dioxide 17 mmol/L (22-29); Chloride 103 mmol/L (98-107); Globulin 2.1 g/dL (1.3-4.6); Glucose 99 mg/dL (65-115); Osmolality Calculated 293 mOsm/kg (285-295); Sodium 137 mmol/L (136-145); Total Bilirubin 0.3 mg/dL (0.15-1.2); Total Protein 6.1 g/dL (6.6-8.7)
[2024-08-03 23:35] LABS: Anion Gap 21.3 (5-19); Potassium 4.3 mmol/L (3.5-5.1)
[2024-08-03 23:36] LABS: Troponin(5th) Baseline 147 ng/L (0-15)
--- NOTE | 2024-08-03 23:50 | W.ED.CHESTPA ---
HPI - Chest Pain General: Chief Complaint: Chest Pain Stated Complaint: CP Time Seen by Provider: 08/03/24 22:52 History of Present Illness: 79-year-old man with history of systolic CHF, end-stage renal disease, DVT, hypertension, hyperlipidemia diabetes, coronary artery disease and BPH who presents the emergency room with chest pain. He had some shortness of breath and some chest pain. He had 2 total nitro prior to arrival. He says pain is better. He says he still feels a little bit short of breath. No fevers. No cough. He does have a large hernia. Related Data Home Medications Medication Instructions Recorded Confirmed nitroglycerin 0.4 mg sublingual 0.4 mg sublingual Q5M PRN Chest 11/22/19 07/12/24 tablet (Nitrostat) Pain acyclovir 200 mg capsule 200 mg PO Q12H PRN outbreaks 03/28/23 07/12/24 cyanocobalamin (vitamin B-12) 1,000 mcg SUBCUT Q1M 05/01/23 07/12/24 1,000 mcg/mL injection solution sodium phosphates 19 gram-7 118 ml AK DAILY PRN Constipation 05/01/23 07/12/24 gram/118 mL enema (Fleet Enema) bisacodyl 10 mg rectal suppository 10 mg AK DAILY PRN Constipation 05/17/23 07/12/24 acetaminophen 300 mg-codeine 30 mg 1 - 2 tab PO Q4H PRN Pain 07/12/24 07/12/24 tablet acetaminophen 325 mg tablet 650 mg PO Q4H PRN Pain, Mild 07/12/24 07/12/24 albuterol sulfate 2.5 mg/3 mL 2.5 mg inhalation Q4H PRN SOB 07/12/24 07/12/24 (0.083 %) solution for nebulization artifi.tears(hypromellose)(PF) 1.7 1 drp ophthalmic (eye) BID PRN Dry 07/12/24 07/12/24 % eye drops with applicator Eyes citalopram 20 mg tablet 20 mg PO DAILY 07/12/24 07/12/24 docusate sodium 100 mg capsule 100 mg PO DAILY 07/12/24 07/12/24 (Colace) ondansetron HCl 4 mg tablet 4 mg PO Q4H PRN Nausea And Vomiting 07/12/24 07/12/24 trazodone 50 mg tablet 50 mg PO BEDTIME 07/12/24 07/12/24 Previous Rx's Medication Instructions Recorded albuterol sulfate 90 mcg/actuation 1 inh inhalation QID PRN shortness 11/14/22 aerosol inhaler (Ventolin HFA) of breath or wheezing #8.5 grams amiodarone 200 mg tablet (Pacerone) 200 mg PO BID #60 tabs 07/15/24 atorvastatin 40 mg tablet 20 mg (1/2 x 40 mg) PO DAILY@2100 07/15/24 30 days #30 tabs diltiazem HCl 240 mg 240 mg PO Q24H #30 caps 07/15/24 capsule,extended release 24 hr (Cardizem CD) furosemide 40 mg tablet (Lasix) 40 mg PO QAM PRN weight gain #14 07/15/24 tabs linezolid 600 mg tablet 600 mg PO Q12H #6 tabs 07/15/24 pantoprazole 40 mg tablet,delayed 40 mg PO DAILY #60 tabs 07/15/24 release sodium bicarbonate 650 mg tablet 650 mg PO BID 30 days #60 tabs 07/15/24 sucralfate 100 mg/mL oral 1 g (10 mL) PO AC&BEDTIME 30 days 07/15/24 suspension #1,000 mL Allergies Allergy/AdvReac Type Severity Reaction Status Date / Time Penicillins Allergy Unknown Unknown Verified 08/03/24 22:59 Review of Systems Narrative: Constitutional symptoms: Negative except as documented in HPI. Skin symptoms: Negative except as documented in HPI. Eye symptoms: Negative except as documented in HPI. ENMT symptoms: Negative except as documented in HPI. Respiratory symptoms: Negative except as documented in HPI. Cardiovascular symptoms: Negative except as documented in HPI. Gastrointestinal symptoms: Negative except as documented in HPI. Genitourinary symptoms: Negative except as documented in HPI. Musculoskeletal symptoms: Negative except as documented in HPI. Neurologic symptoms: Negative except as documented in HPI. Psychiatric symptoms: Negative except as documented in HPI. Endocrine symptoms: Negative except as documented in HPI. [facility] ED PFSH: Medical History (Updated 08/04/24 @ 01:14 by Cindy Lake MD) Systolic CHF Renal failure (ARF), acute on chronic AMS (altered mental status) Metabolic encephalopathy Expressive aphasia End stage renal disease Right leg DVT Iliac DVT (deep venous thrombosis) Pleural effusion, left CHRISTY (obstructive sleep apnea) Eosinophilic asthma History of stroke BPH (benign prostatic hyperplasia) Myocardial infarct ASHD (arteriosclerotic heart disease) Diabetes 1.5, managed as type 2 HTN (hypertension) Hyperlipidemia Surgical History (Updated 07/16/24 @ 00:00 by ANU Palafox) History of knee replacement (~2014) History of shoulder replacement S/P shoulder replacement S/P knee replacement H/O esophagogastroduodenoscopy (09/26/20) History of colonoscopy (09/26/20) S/P PTCA (percutaneous transluminal coronary angioplasty) Family History Mother Dementia Denies family history of Family history of premature coronary artery disease Social History Smoking and tobacco/nicotine status: former use of tobacco/nicotine Quit status (tobacco/nicotine): has quit using Year quit tobacco: 1971 Former quit date comment: 2ppd x 10 years Alcohol intake: never Household members: spouse Marital status: service: No Current occupational status: retired Physical Exam Narrative: EXAM NARRATIVE: General: Alert, no acute distress. Skin: Warm, dry. Head: Normocephalic, atraumatic. Neck: Supple, trachea midline. Eye: Extraocular movements are intact. Ears, nose, mouth and throat: mucosa moist. Cardiovascular: Regular, Normal peripheral perfusion. Respiratory: Lungs are clear to auscultation, respirations are non-labored, breath sounds are equal, Symmetrical chest wall expansion. Gastrointestinal: Soft, Nontender, Non distended Musculoskeletal: Normal ROM, no deformity. Neurological: Alert and oriented, No focal neurological deficit observed. Psychiatric: Cooperative, appropriate mood & affect. Course Vital Signs: Vital signs: Vital Signs Temperature 98.1 F 08/03/24 22:48 Pulse Rate 94 08/04/24 01:22 Respiratory Rate 20 H 08/04/24 01:22 Blood Pressure 145/82 08/04/24 01:22 Pulse Oximetry 100 08/04/24 01:22 Oxygen Delivery Me thod Room Air 08/04/24 01:22 MDM - Chest Pain Medical Decision Making Differential diagnosis for patient with chest pain includes but is not limited to and based on the above HPI, review of systems and physical exam: Pneumonia. unstable angina. angina. Acute coronary syndrome / SD. Pulmonary embolism. Costochondritis / musculoskeletal. Pleurisy. Pericarditis. Esophageal spasm. Pancreatis. Cholecystitis. Orders placed to evaluate differential diagnosis based on the above differential, HPI and physical exam EKG: Time 2252. Rate 99. Normal sinus rhythm, nonspecific ST-T changes, no ectopy, normal AK & QRS intervals, This was reviewed and interpreted by myself the ER physician at 2255 Chest x-ray: Cardiomegaly. No obvious infiltrates or heart failure. No acute process. No infiltrate. No pneumothorax. This was reviewed and interpreted by myself the emergency room physician. I also reviewed the radiology report. Lab Review: Laboratory results were reviewed and interpreted by myself the emergency room physician. Mild leukocytosis. Stable anemia. BUN and creatinine are 39 and 4.9 with a normal potassium at 4.3. This would be expected in this dialysis patient. Initial troponin was 147. Second was 133. This is around his baseline with his end-stage renal disease. I reviewed the patient's medical record. Reexamination: Patient remained stable. No increased work of breathing. No altered mental status. No focal motor deficits. Consultation: Spoke with the hospitalist who agrees that this elevation in troponin is likely due to patient's renal function and patient is not having any chest pain at this time or shortness of breath. Good to go home. Assessment and plan: Noncardiac chest pain Shortness of breath - Discharged home - Discussed plan with patient. Answered any questions. - Evaluation and treatment of this problem were appropriate in the emergency setting. Lab Data 08/03/24 22:41 08/03/24 22:41 Radiology Impressions Chest X-Ray 08/03/24 23:12 IMPRESSION: Cardiomegaly associated with small bilateral pleural effusions likely associated with passive atelectasis. Laboratory Results WBC 11.84 10^3/uL (3.29-11.43) H 08/03/24 22:41 RBC 2.65 10^6/uL (3.85-5.65) L 08/03/24 22:41 Hgb 8.00 g/dL (11.27-16.99) L 08/03/24 22:41 Hct 25.6 % (37-53) L 08/03/24 22:41 MCV 96.6 fl (82-101) 08/03/24 22:41 MCH 30.2 pg (27-33) 08/03/24 22:41 MCHC 31.3 g/dL (30-55) 08/03/24 22:41 RDW 15.4 % (12.1-15.1) H 08/03/24 22:41 Plt Count 344 10^3/cmm (157-399) 08/03/24 22:41 MPV 9.6 fL (7.4-10.4) 08/03/24 22:41 Neut % (Auto) 75.6 % 08/03/24 22:41 Lymph % (Auto) 14.9 % 08/03/24 22:41 Perkins % (Auto) 7.3 % 08/03/24 22:41 Eos % (Auto) 1.8 % 08/03/24 22:41 Baso % (Auto) 0.1 % 08/03/24 22:41 Neut # (Auto) 8.95 10^3/uL (1.8-7.7) H 08/03/24 22:41 Lymph # (Auto) 1.8 10^3/uL (0.8-4.8) 08/03/24 22:41 Perkins # (Auto) 0.9 10^3/uL (0.2-0.9) 08/03/24 22:41 Eos # (Auto) 0.2 10^3/uL (0.0-0.8) 08/03/24 22:41 Baso # (Auto) 0.0 10^3/uL (0.0-0.1) 08/03/24 22:41 Nucleated RBC % (auto) 0 % 08/03/24 22: Nucleated RBCs # 0.0 /100WBC 08/03/24 22:41 Sodium 137 mmol/L (136-145) 08/03/24 22:41 Potassium 4.3 mmol/L (3.5-5.1) 08/03/24 22:41 Chloride 103 mmol/L (98-107) 08/03/24 22:41 Carbon Dioxide 17 mmol/L (22-29) L 08/03/24 22:41 Anion Gap 21.3 (5-19) H 08/03/24 22:41 BUN 39 mg/dL (8-23) H 08/03/24 22:41 Creatinine 4.9 mg/dL (0.7-1.2) H 08/03/24 22:41 GFR Calculation Not Reportable 08/03/24 22:41 Glucose 99 mg/dL (65-115) 08/03/24 22:41 Calculated Osmolality 293 mOsm/kg (285-295) 08/03/24 22:41 Calcium 9.0 mg/dL (8.5-10.5) 08/03/24 22:41 Total Bilirubin 0.3 mg/dL (0.15-1.2) 08/03/24 22:41 AST 13 U/L (0-40) 08/03/24 22:41 ALT 16 U/L (0-41) 08/03/24 22:41 Alkaline Phosphatase 84 U/L (40-130) 08/03/24 22:41 Troponin T Baseline 147 ng/L (0-15) H* 08/03/24 22:41 Troponin T 120 Minute 133.5 ng/L (0-15) H 08/04/24 00:46 Delta Troponin T -13.5 ABS# (0-10) L 08/04/24 00:46 C-Reactive Protein 3.0 mg/L (0.0-4.9) 08/03/24 22:41 Total Protein 6.1 g/dL (6.6-8.7) L 08/03/24 22:41 Albumin 4.0 g/dL (3.5-5.2) 08/03/24 22:41 Globulin 2.1 g/dL (1.3-4.6) 08/03/24 22:41 Urine Color Yellow (Yellow) 08/04/24 00:15 Urine Appearance Clear (CLEAR) 08/04/24 00:15 Urine pH 7.0 (5-7) 08/04/24 00:15 Ur Specific [place] 1.011 (1.005-1.030) 08/04/24 00:15 Urine Protein 2+ (Negative) A 08/04/24 00:15 Urine Glucose (UA) Trace (Normal) H 08/04/24 00:15 Urine Ketones Negative (Negative) 08/04/24 00:15 Urine Blood Negative (Negative) 08/04/24 00:15 Urine Nitrate Negative (Negative) 08/04/24 00:15 Urine Bilirubin Negative (Negative) 08/04/24 00:15 Urine Urobilinogen 0.2 mg/dL (Negative) 08/04/24 00:15 Ur Leukocyte Esterase Trace (Negative) A 08/04/24 00:15 Urine RBC 0-2 /hpf (0-2) 08/04/24 00:15 Urine WBC 0-5 /hpf (0-5) 08/04/24 00:15 Ur Squamous Epith Cells 0-5 /hpf (0-5) 08/04/24 00:15 Amorphous Sediment Not Reportable 08/04/24 00:15 Urine Bacteria None seen /hpf (NONE) 08/04/24 00:15 Hyaline Casts 0.40 /lpf 08/04/24 00:15 All radiology interpretation(s) finalized by discharge Discharge Plan Discharge Patient Disposition: Home Clinical Impression: Non-cardiac chest pain, End stage renal disease on dialysis, Dyspnea Condition: Stable Prescriptions: No Action nitroglycerin [Nitrostat] 0.4 mg tablet, sublingual 0.4 mg SUBLINGUAL Q5M PRN (Reason: Chest Pain) albuterol sulfate [Ventolin HFA] 90 mcg/actuation HFA aerosol inhaler 1 inh inhalation QID PRN (Reason: shortness of breath or wheezing) Qty: 8.5 3RF bisacodyl 10 mg Suppository 10 mg AK DAILY PRN (Reason: Constipation) acyclovir 200 mg capsule 200 mg PO Q12H PRN (Reason: outbreaks) Fleet Enema 19-7 gram/118 mL Enema 118 ml AK DAILY PRN (Reason: Constipation) cyanocobalamin (vitamin B-12) 1,000 mcg/mL Solution 1,000 mcg SUBCUT Q1M Rx Instructions: STARTING ON AND ENDING ON THE 6TH EVERY MONTH albuterol sulfate 2.5 mg /3 mL (0.083 %) solution for nebulization 2.5 mg inhalation Q4H PRN (Reason: SOB) trazodone 50 mg tablet 50 mg PO BEDTIME artifi.tears(hypromellose)(PF) 1.7 % Drops With Applicator 1 drp OPHTHALMIC (EYE) BID PRN (Reason: Dry Eyes) acetaminophen 325 mg Tablet 650 mg PO Q4H PRN (Reason: Pain, Mild) ondansetron HCl 4 mg tablet 4 mg PO Q4H PRN (Reason: Nausea And Vomiting) acetaminophen-codeine 300-30 mg tablet 1 - 2 tab PO Q4H PRN (Reason: Pain) docusate sodium [Colace] 100 mg Capsule 100 mg PO DAILY citalopram 20 mg tablet 20 mg PO DAILY atorvastatin 40 mg Tablet 20 mg PO DAILY@2100 30 Days Qty: 30 0RF amiodarone [Pacerone] 200 mg Tablet 200 mg PO BID Qty: 60 0RF Rx Instructions: 200 mg BID twice day for 1 week, f/b once daily linezolid 600 mg Tablet 600 mg PO Q12H Qty: 6 0RF sodium bicarbonate 650 mg Tablet 650 mg PO BID 30 Days Qty: 60 3RF sucralfate 100 mg/mL Suspension 1 g PO AC&BEDTIME 30 Days Qty: 1000 0RF furosemide [Lasix] 40 mg tablet 40 mg PO QAM PRN (Reason: weight gain) Qty: 14 0RF Rx Instructions: Once daily for weight of more than 5 pounds. pantoprazole 40 mg tablet,delayed release (DR/EC) 40 mg PO DAILY Qty: 60 0RF Rx Instructions: Twice daily for next 4 weeks followed by once daily diltiazem HCl [Cardizem CD] 240 mg capsule,extended release 24hr 240 mg PO Q24H Qty: 30 0RF Discharge Orders: Discharge ED (Routine); Ordered 08/04/24 Ordered By: Cindy Lake Referrals: Ramiro Villavicencio MD [Primary Care Provider] - Discharge Diet: Usual diet Discharge Activity: Increase activity as tolerated Patient Instructions: Noncardiac Chest Pain (ED), Opioid Safety, Pain Management Activity Restrictions/Additional Instructions: Thank you for choosing [facility] for your healthcare needs today. Please realize this is an emergency room and that we are providing you with a medical screening exam and this may not be complete and all inclusive of all the testing and or work up that you may need to determine your ailment or severity of your illness. You have been screened and evaluated and felt safe for discharge. Health conditions do change or evolve sometimes and as such it is important that you follow up with your Primary Doctor to be re checked, 3-5 days is a general good time frame for follow up. You are always welcome to return to the ED for re assessment if your symptoms are worsening or you have new concerns Coding Level of Care Code ED Business Line Manager for Milind Johnston
[2024-08-04 00:04] VITALS: BP 140/79; PULSE 93; RESP 18; O2SAT 98
[2024-08-04 00:22] LABS: Bilirubin Urine Negative (Negative); Blood Urine Negative (Negative); Glucose Urine UA Trace (Normal); Ketones Urine Negative (Negative); Leukocyte Esterase Urine Trace (Negative); Nitrate Urine Negative (Negative); Protein Urine 2+ (Negative); Specific Gravity, Urine 1.011 (1.005-1.030); Urine Appearance Clear (CLEAR); Urine Color Yellow (Yellow); Urobilinogen Urine 0.2 mg/dL (Negative)
[2024-08-04 00:23] VITALS: BP 140/79; PULSE 95; RESP 21; O2SAT 99
[2024-08-04 00:27] LABS: Bacteria Urine None Seen /hpf; RBC Urine 0-2 /hpf (0-2); Squamous Epithelial Cell Urine 0-5 /hpf (0-5); WBC Urine 0-5 /hpf (0-5)
[2024-08-04 01:08] LABS: Troponin 5 2HR Delta -13.5 ABS# (0-10)
[2024-08-04 01:09] LABS: Troponin 5 2HR 133.5 ng/L (0-15)
[2024-08-04 01:22] VITALS: BP 145/82; PULSE 94; RESP 20; O2SAT 100
[2024-08-04 02:31] VITALS: BP 151/96; PULSE 95; RESP 24; O2SAT 99
--- NOTE | 2024-08-04 03:44 | PC.NURSE ---
attempted to call [facility] staff unable to reach a nurse at this time
[2024-08-04 03:49] VITALS: BP 146/89; PULSE 96; RESP 18; O2SAT 96
== END 2024-08-04 03:51 | disposition home or self-care (01) ==
PROVIDERS: Emergency Provider Emergency Medicine; PCP Family Medicine
DX: R07.89 Other chest pain (principal); E13.22 Other specified diabetes mellitus with diabetic chronic kidney disease; I13.2 Hypertensive heart and chronic kidney disease with heart failure and with stage 5 chronic kidney disease, or end stage renal disease; I50.20 Unspecified systolic (congestive) heart failure; N18.6 End stage renal disease; Z99.2 Dependence on renal dialysis; Z87.891 Personal history of nicotine dependence; E78.5 Hyperlipidemia, unspecified; I25.10 Atherosclerotic heart disease of native coronary artery without angina pectoris
CPT/HCPCS: 36415; 71045; 80053; 81001; 84484; 85025; 86140; 93005; 99285

== ENCOUNTER 2024-08-12 10:52 | Outpatient (CLI) | payer MEDICARE, MEDICAID, SELFPAY ==
--- NOTE | 2024-08-12 11:05 | US_ITS ---
WS: [id number] Complete ABDOMINAL ULTRASOUND HISTORY: Ascites COMPARISON: 04/08/2023, CT 07/12/2024 Liver: 15.9 cm in length. Coarse hepatic echotexture. Liver is not seen in its entirety. No bile duct dilatation is evident. Portal Vein: Normal hepatopetal flow with monophasic waveform. Gallbladder: Normally distended gallbladder. Small polyps versus adherent stones to the gallbladder w all. No pericholecystic fluid. CBD: 0.8 cm Pancreas: Obscured. Right kidney: 11.4 cm x 4.9 x 4.6 cm. Cortex:1.0 cm. Kidneys normal size with marked increased echogenicity. Poor cortical medullary differentiation and n umerous cysts. No solid mass. Left kidney: 9.6 cm x 4.1 cm x 4.7 cm. Cortex: 1.2 cm. Normal size kidney with poor corticomedullary differentiation and increased echogenicity. Numerous cy sts. Spleen: 11.6 cm. Normal size and echogenicity. Aorta and IVC: Not well visualized. Small RIGHT pleural effusion. US/US abdomen complete* [id number] Impression: 1. Quality of this examination is compromised by body habitus. 2. Normally distended gallbladder with small stones adherent to the gallbladde r wall versus polyps. No acute cholecystitis. 3. 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 Numerous acquired cysts. 4. Coarse hepatic echotexture from chronic hepatocellular disease. 5. Small RIGHT pleural effusion. 6. No ascites identified.
== END 2024-08-12 10:53 | disposition home or self-care (01) ==
LOC: RAD 10:54
PROVIDERS: PCP Family Medicine; Visit Provider Nurse Practitioner Family
DX: K80.20 Calculus of gallbladder without cholecystitis without obstruction (principal); R18.0 Malignant ascites; N28.1 Cyst of kidney, acquired; R93.421 Abnormal radiologic findings on diagnostic imaging of right kidney; R93.422 Abnormal radiologic findings on diagnostic imaging of left kidney; R93.2 Abnormal findings on diagnostic imaging of liver and biliary tract; J90 Pleural effusion, not elsewhere classified
CPT/HCPCS: 76700

== ENCOUNTER 2024-09-05 00:19 | Emergency (ER) | payer MEDICARE, MEDICAID, SELFPAY ==
[2024-09-05] VITALS (7 sets, daily range): BP systolic 136–170; BP diastolic 81–97; PULSE 86–102; RESP 18–22; TEMP 36.9; O2SAT 92–100; BMI 26.6
--- NOTE | 2024-09-05 00:23 | ECG_ITS ---
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1945 Requested By: Alec Childress Order Number: [id number] Shannan MD: STUART REDMOND Measurements Intervals [place] Rate: 91 P: 20 HI: 174 QRS: -41 QRSD: 96 T: 65 QT: 396 QTc: 488 Interpretive Statements SINUS RHYTHM WITH SINUS ARRHYTHMIA LEFT AXIS DEVIATION [QRS AXIS < -30] MODERATE VOLTAGE CRITERIA FOR LVH, CONSIDER NORMAL VARIANT [MEETS CRITERIA IN ONE OF: R(aVL), S(V1), R(V5), R(V5/V6)+S(V1)] POSSIBLE SEPTAL MYOCARDIAL INFARCTION , PROBABLY OLD [30 ms Q WAVE IN V1/V2] Compared to ECG 08/03/2024 22:52:04 Left-axis deviation now present Myocardial infarct finding now present ST (T wave) deviation no longer present Electronically Signed On 09-05-2024 20:56:42 TRANSPORTATION DIRECTOR by STUART REDMOND [email or web address]
[2024-09-05 02:06] LABS: Basophils % 0.1 %; Eosinophils # 0.2 10^3/uL (0.0-0.8); Hematocrit 25.5 % (37-53); Lymphocytes # 1.3 10^3/uL (0.8-4.8); Lymphocytes % 13.1 %; Mean Corpuscular HGB Conc 30.6 g/dL (30-55); Mean Corpuscular Hemoglobin 30.5 pg (27-33); Mean Corpuscular Volume 99.6 fl (82-101); Mean Platelet Volume 9.2 fL (7.4-10.4); Monocytes # 0.8 10^3/uL (0.2-0.9); Monocytes % 7.5 %; Neutrophils % 76.9 %; Nucleated Red Blood Cells % 0 %; Platelet Count 393 10^3/cmm (157-399); Red Blood Count 2.56 10^6/uL (3.85-5.65); Red Cell Distribution Width 15.4 % (12.1-15.1); White Blood Count 10.01 10^3/uL (3.29-11.43)
[2024-09-05 02:28] LABS: Alanine Aminotransferase 7 U/L (0-41); Alkaline Phosphatase 103 U/L (40-130); Anion Gap 21.4 (5-19); Aspartate Amino Transferase 8 U/L (0-40); Blood Urea Nitrogen 41 mg/dL (8-23); Calcium 9.1 mg/dL (8.5-10.5); Carbon Dioxide 18 mmol/L (22-29); Chloride 104 mmol/L (98-107); Creatinine Clr Calc Pharmacy 14.3179; Globulin 2.3 g/dL (1.3-4.6); Glucose 118 mg/dL (65-115); Osmolality Calculated 299 mOsm/kg (285-295); Potassium 4.4 mmol/L (3.5-5.1); Sodium 139 mmol/L (136-145); Total Bilirubin 0.2 mg/dL (0.15-1.2); Total Protein 6.3 g/dL (6.6-8.7)
[2024-09-05 02:32] LABS: Troponin(5th) Baseline 309 ng/L (0-15)
--- NOTE | 2024-09-05 02:42 | ED_ITS ---
HPI - Chest Pain 2 General: Chief Complaint: Chest Pain Stated Complaint: CHEST PAIN Time Seen by Provider: 09/05/24 02:28 History of Present Illness: 79-year-old male patient presenting from detention complaining of epigastric and chest discomfort. He blames this discomfort on his hernia . He has been having trouble breathing when lying flat. No fever. He has had a cough. No vomiting. Related Data Home Medications ?Medication ?Instructions ?Recorded ?Confirmed nitroglycerin 0.4 mg sublingual 0.4 mg sublingual Q5M PRN Chest 11/22/19 07/12/24 tablet (Nitrostat) Pain acyclovir 200 mg capsule 200 mg PO Q12H PRN outbreaks 03/28/23 07/12/24 cyanocobalamin (vitamin B-12) 1,000 mcg SUBCUT Q1M 12/1707/12/24 1,000 mcg/mL injection solution sodium phosphates 19 gram-7 118 ml CA DAILY PRN Consti pation 05/01/23 07/12/24 gram/118 mL enema (Fleet Enema) bisacodyl 10 mg rectal suppository 10 mg CA DAILY PRN Constipation 05/17/23 07/12/24 acetaminophen 300 mg-codeine 30 mg 1 - 2 tab PO Q4H CA N Pain 07/12/24 07/12/24 tablet acetaminophen 325 mg tablet 650 mg PO Q4H PRN Pain, Mi ld 07/12/24 07/12/24 albuterol sulfate 2.5 mg/3 mL 2.5 mg inhalation Q4H CA N SOB 07/12/24 07/12/24 (0.083 %) solution for nebulization artifi.tears(hypromellose)(PF) 1.7 1 drp ophthalmic (e ye) BID PRN Dry 07/12/24 07/12/24 % eye drops with applicator Eyes citalopram 20 mg tablet 20 mg PO DAILY 07/12/2406/27 docusate sodium 100 mg capsule 100 mg PO DAILY 4 07/12/24 (Colace) ondansetron HCl 4 mg tablet 4 mg PO Q4H PRN Nausea And Vomiting 07/12/24 07/12/24 trazodone 50 mg tablet 50 mg PO BEDTIME 07/12/24 Previous Rx's ?Medication ?Instructions ?Recorded albuterol sulfate 90 mcg/actuation 1 inh inhalation QI D PRN shortness 11/14/22 aerosol inhaler (Ventolin HFA) of breath or wheezing # 8.5 grams amiodarone 200 mg tablet (Pacerone) 200 mg PO BID #60 tabs 07/15/24 diltiazem HCl 240 mg 240 mg PO Q24H #30 caps 06/27 04/20 capsule,extended release 24 hr (Cardizem CD) furosemide 40 mg tablet (Lasix) 40 mg PO QAM PRN weigh t gain #14 07/15/24 tabs linezolid 600 mg tablet 600 mg PO Q12H #6 tabs 07/15 pantoprazole 40 mg tablet,delayed 40 mg PO DAILY #60 t abs 07/15/24 release sodium bicarbonate 650 mg tablet 650 mg PO BID 30 days #60 tabs 07/15/24 Allergies Allergy/AdvReac Type Severity Reaction Status Date / Time Penicillins Allergy Unknown Unknown Verified 08/03/24 22:59 [facility] ED 2 PFS: Medical History Systolic CHF Renal failure (ARF), acute on chronic AMS (altered mental status) Metabolic encephalopathy Expressive aphasia End stage renal disease Right leg DVT Iliac DVT (deep venous thrombosis) Pleural effusion, left CHRISTY (obstructive sleep apnea) Eosinophilic asthma History of stroke BPH (benign prostatic hyperplasia) Myocardial infarct ASHD (arteriosclerotic heart disease) Diabetes 1.5, managed as type 2 HTN (hypertension) Hyperlipidemia Surgical History History of knee replacement (~2014) History of shoulder replacement S/P shoulder replacement S/P knee replacement H/O esophagogastroduodenoscopy (09/26/20) History of colonoscopy (09/26/20) S/P PTCA (percutaneous transluminal coronary angioplasty) Family History Mother Dementia Denies family history of Family history of premature coronary artery disease Social History Smoking and tobacco/nicotine status: former use of tobacco/nicotine Quit status (tobacco/nicotine): has quit using Year quit tobacco: 1971 Former quit date comment: 2ppd x 10 years Alcohol intake: never Household members: spouse Marital status: service: No Current occupational status: retired Physical Exam 2 Const: COMMON NORMALS: no acute distress GENERAL APPEARANCE: cooperative and frail appearing ORIENTATION/CONSCIOUSNESS: Yes awake, Yes oriented to person, Yes oriented to place and Yes oriented to time HENMT: COMMON NORMALS: normocephalic and atraumatic HEAD & SCALP: n ormocephalic and atraumatic FACE & SINUS: normal facial exam Eye: COMMON NORMALS: Equal, round and reactive pupils present and EOMs intact bilaterally PUPIL: Yes Equal, round and reactive pupils present Chest: COMMONS NORMALS: normal palpation of entire chest wall Resp: COMMON NORMALS: normal respiratory effort, No use of accessory muscles and clear to auscultation bilaterally AUSCULTATION: clear to auscultation bilaterally Cardio: COMMON NORMALS: regular rate and regular rhythm RATE: regular rate RHYTHM: regular rhythm GI: COMMON NORMALS: Soft to palpation PALPATION: Yes Soft to palpation O THER: Large rectus diastases Neuro: PADMA COMA SCALE: document GCS findings Locke coma scale eye opening: Spontaneous Padma coma scale verbal response: Orientated Locke coma scale motor response: Obey commands Padma coma scale total score: 15 S ENSORIUM/ORIENTATION: Yes oriented to person, Yes oriented to place and Yes oriented to time Course 2 Vital Signs: Vital signs: Vital Signs Temperature 98.4 F 09/05/24 00:25 Pulse Rate 94 09/05/24 05:47 Respiratory Rate 18 09/05/24 05:20 Blood Pressure 146/91 09/05/24 05:47 Pulse Oximetry 100 09/05/24 05:47 Oxygen Delivery Me thod Room Air 09/05/24 05:20 MDM - Chest Pain Medical Decision Making No acute ST wave changes on EKG. His hemoglobin is 7.8 which is stable for the patient. Creatinine is 4.7 which again is stable. Baseline troponin is 309. Patient's delta is only 8. Again, with a creatinine of 4.7 unsure is clinical significance. Chest x-ray shows stable bilateral pleural effusions from prior with cardiomegaly. He is given 60 mg of IV Lasix, as there is some complaint of orthopnea. Otherwise, saturations are 99% on room air currently. He is afebrile. He is asking to be discharged back to the detention. Given no acute changes, will allow. To return for any worsening symptoms or continued chest discomfort. Lab Data 09/05/24 01:51 09/05/24 01:51 Radiology Impressions Chest X-Ray 09/05/24 02:47 IMPRESSION: Unchanged cardiomegaly and bilateral pleural effusions, [id number]-right. Bilateral lower lung infiltrate, passive atelectasis and/or early pulmonary edema. Laboratory Results WBC 10.01 10^3/uL (3.29-11.43) 09/05/24 01:51 RBC 2.56 10^6/uL (3.85-5.65) L 09/05/24 01:51 Hgb 7.80 g/dL (11.27-16.99) L 09/05/24 01:51 Hct 25.5 % (37-53) L 09/05/24 01:51 MCV 99.6 fl (82-101) 09/05/24 01:51 MCH 30.5 pg (27-33) 09/05/24 01:51 MCHC 30.6 g/dL (30-55) 09/05/24 01:51 RDW 15.4 % (12.1-15.1) H 09/05/24 01:51 Plt Count 393 10^3/cmm (157-399) 09/05/24 01:51 MPV 9.2 fL (7.4-10.4) 09/05/24 01:51 Neut % (Auto) 76.9 % 09/05/24 01:51 Lymph % (Auto) 13.1 % 09/05/24 01:51 [place] % (Auto) 7.5 % 09/05/24 01:51 Eos % (Auto) 2.0 % 09/05/24 01:51 Baso % (Auto) 0.1 % 09/05/24 01:51 Neut # (Auto) 7.70 10^3/uL (1.8-7.7) 09/05/24 01:51 Lymph # (Auto) 1.3 10^3/uL (0.8-4.8) 09/05/24 01:51 [place] # (Auto) 0.8 10^3/uL (0.2-0.9) 09/05/24 01:51 Eos # (Auto) 0.2 10^3/uL (0.0-0.8) 09/05/24 01:51 Baso # (Auto) 0.0 10^3/uL (0.0-0.1) 09/05/24 01:51 Nucleated RBC % (auto) 0 % 09/05/24 01:51 Nucleated RBCs # 0.0 /100WBC 09/05/24 01:51 Sodium 139 mmol/L (136-145) 09/05/24 01:51 Potassium 4.4 mmol/L (3.5-5.1) 09/05/24 01:51 Chloride 104 mmol/L (98-107) 09/05/24 01:51 Carbon Dioxide 18 mmol/L (22-29) L 09/05/24 01:51 Anion Gap 21.4 (5-19) H 09/05/24 01:51 BUN 41 mg/dL (8-23) H 09/05/24 01:51 Creatinine 4.7 mg/dL (0.7-1.2) H 09/05/24 01:51 GFR Calculation Not Reportable 09/05/24 01:51 Glucose 118 mg/dL (65-115) H 09/05/24 01:51 Calculated Osmolality 299 mOsm/kg (285-295) H 09/05/24 01:51 Calcium 9.1 mg/dL (8.5-10.5) 09/05/24 01:51 Total Bilirubin 0.2 mg/dL (0.15-1.2) 09/05/24 01:51 AST 8 U/L (0-40) 09/05/24 01:51 ALT 7 U/L (0-41) 09/05/24 01:51 Alkaline Phosphatase 103 U/L (40-130) 09/05/24 01:51 Troponin T Baseline 309 ng/L (0-15) H* 09/05/24 01:51 Troponin T 120 Minute 317.0 ng/L (0-15) H 09/05/24 03:49 Delta Troponin T 8.0 ABS# (0-10) 09/05/24 03:49 C-Reactive Protein 3.0 mg/L (0.0-4.9) 09/05/24 01:51 Total Protein 6.3 g/dL (6.6-8.7) L 09/05/24 01:51 Albumin 4.0 g/dL (3.5-5.2) 09/05/24 01:51 Globulin 2.3 g/dL (1.3-4.6) 09/05/24 01:51 Lipase 92 U/L (13-60) H 09/05/24 01:51 All radiology interpretation(s) finalized by discharge Discharge Plan Discharge Patient Disposition: Home Clinical Impression: Pleural effusion, Chest pain, Systolic CHF Condition: Stable Prescriptions: No Action nitroglycerin [Nitrostat] 0.4 mg tablet, sublingual 0.4 mg SUBLINGUAL Q5M PRN (Reason: Chest Pain) albuterol sulfate [Ventolin HFA] 90 mcg/actuation HFA aerosol inhaler 1 inh inhalation QID PRN (Reason: shortness of breath or wheezing) Qty: 8.5 3RF bisacodyl 10 mg Suppository 10 mg CA DAILY PRN (Reason: Constipation) acyclovir 200 mg capsule 200 mg PO Q12H PRN (Reason: outbreaks) Fleet Enema 19-7 gram/118 mL Enema 118 ml CA DAILY PRN (Reason: Constipation) cyanocobalamin (vitamin B-12) 1,000 mcg/mL Solution 1,000 mcg SUBCUT Q1M Rx Instructions: STARTING ON AND ENDING ON THE EVERY MONTH albuterol sulfate 2.5 mg /3 mL (0.083 %) solution for nebulization 2.5 mg inhalation Q4H PRN (Reason: SOB) trazodone 50 mg tablet 50 mg PO BEDTIME artifi.tears(hypromellose)(PF) 1.7 % Drops With Applicator 1 drp OPHTHALMIC (EYE) BID PRN (Reason: Dry Eyes) acetaminophen 325 mg Tablet 650 mg PO Q4H PRN (Reason: Pain, Mild) ondansetron HCl 4 mg tablet 4 mg PO Q4H PRN (Reason: Nausea And Vomiting) acetaminophen-codeine 300-30 mg tablet 1 - 2 tab PO Q4H PRN (Reason: Pain) docusate sodium [Colace] 100 mg Capsule 100 mg PO DAILY citalopram 20 mg tablet 20 mg PO DAILY amiodarone [Pacerone] 200 mg Tablet 200 mg PO BID Qty: 60 0RF Rx Instructions: 200 mg BID twice day for 1 week, f/b once daily linezolid 600 mg Tablet 600 mg PO Q12H Qty: 6 0RF sodium bicarbonate 650 mg Tablet 650 mg PO BID 30 Days Qty: 60 3RF furosemide [Lasix] 40 mg tablet 40 mg PO QAM PRN (Reason: weight gain) Qty: 14 0RF Rx Instructions: Once daily for weight of more than 5 pounds. pantoprazole 40 mg tablet,delayed release (DR/EC) 40 mg PO DAILY Qty: 60 0RF Rx Instructions: Twice daily for next 4 weeks followed by once daily diltiazem HCl [Cardizem CD] 240 mg capsule,extended release 24hr 240 mg PO Q24H Qty: 30 0RF Discharge Orders: Discharge ED (Routine); Ordered 09/05/24 Ordered By: Alec Stevens Referrals: Ramiro Villavicencio MD [Primary Care Provider] - 1-3 days Patient Instructions: Chest Pain (ED), Pulmonary Edema (ED), Opioid Safety, Pain Management Activity Restrictions/Additional Instructions: Increase furosemide to 40 mg twice daily for the next 48 hours, then back to 40 mg daily. Return for continued chest discomfort, worsening shortness of breath, any other concerning symptoms. See your doctor this week. Print Language: Slovak Coding Level of Care Code ED Remote Sensing Analyst for Milind Johnston
--- NOTE | 2024-09-05 02:47 | XRR_ITS ---
PROCEDURE INFORMATION: Exam: XR Chest Exam date and time: 09/05/2024 2:52 AM Age: 79 years old Clinical indication: Chest pressure; Prior surgery; Surgery date: 6+ months; Surgery type: Coronary stents; C/O chest pain. History of chf. TECHNIQUE: Imaging protocol: Radiologic exam of the chest. Views: 1 view. COMPARISON: CR (CHEST, ) 08/03/2024 11:14 PM FINDINGS: Lungs: Mild infiltrate within the bilateral lower lungs. Pleural spaces: Blunting of the left costophrenic angle, possible small to moderate left pleural effusion. Heart/Mediastinum: Cardiomegaly. Bones/joints: Unremarkable. XR/XR chest 1V portable [id number] IMPRESSION: Unchanged cardiomegaly and bilateral pleural effusions, [id number]-[id number]-right. Bilateral lower lung infiltrate, passive atelectasis and/or early pulmonary edema.
[2024-09-05 03:09] LABS: Lipase 92 U/L (13-60)
[2024-09-05] MEDS: FUROsemide 10 mg/mL SDV 10mL 60 MG IVP (05:14)
== END 2024-09-05 05:48 | disposition home or self-care (01) ==
PROVIDERS: Emergency Provider Emergency Medicine; PCP Family Medicine
DX: J90 Pleural effusion, not elsewhere classified (principal); I11.0 Hypertensive heart disease with heart failure; I50.20 Unspecified systolic (congestive) heart failure; E13.9 Other specified diabetes mellitus without complications; E78.5 Hyperlipidemia, unspecified; Z87.891 Personal history of nicotine dependence; R07.9 Chest pain, unspecified
CPT/HCPCS: 36415; 71045; 80053; 83690; 84484; 85025; 86140; 93005; 96374; 99285; J1940

== ENCOUNTER 2024-09-29 00:44 | Inpatient (IN) | payer MEDICARE, MEDICAID, SELFPAY ==
[2024-09-29] VITALS (21 sets, daily range): BP systolic 105–181; BP diastolic 54–90; PULSE 63–95; RESP 16–22; TEMP 36.1–36.5; O2SAT 78–99; BMI 28.0
--- NOTE | 2024-09-29 01:01 | XRR_ITS ---
PROCEDURE INFORMATION: Exam: XR Chest Exam date and time: 09/29/2024 1:28 AM Age: 79 years old Clinical indication: Shortness of breath TECHNIQUE: Imaging protocol: Radiologic exam of the chest. Views: 1 view. COMPARISON: CR (CHEST, ) 09/05/2024 2:52 AM FINDINGS: Lungs: No ossification of the bilateral lung bases, [id number]-[id number]-right, with partial obscuration of the hemidiaphragms. Pleural spaces: Moderate volume right pleural effusion. Large volume left pleural effusion. Heart/Mediastinum: Unchanged cardiomegaly. Bones/joints: See Lungs finding. XR/XR chest 1V portable [id number] IMPRESSION: Increased bilateral pleural effusions, moderate volume on the right, large volume on the left. Increased consolidation of the bilateral lung bases, presumed on the basis of worsening atelectasis, pneumonia, or pulmonary edema.
--- NOTE | 2024-09-29 01:04 | W.ED.ABDPA2 ---
HPI - Abdominal Pain General: Chief Complaint: Abdominal Pain Stated Complaint: abdomen pain Time Seen by Provider: 09/29/24 01:08 History of Present Illness: Patient presents to the ER by EMS from [facility] with complaints of abdominal pain shortness of breath and swelling in his feet. He says abdominal pain is from his hernia that he feels like is getting bigger and pushing up and allowing him to take a big deep breath. Patient is also noticed the swelling in his feet which is worse than normal. Patient does have a history of systolic CHF, acute on chronic renal failure, patient is on Lasix 40 mg as needed. Patient says he normally does not wear any oxygen and upon arrival here he is on room air with an O2 sat of 95%., Patient does not currently do dialysis he has in the past. But he stopped months ago. Related Data Home Medications ?Medication ?Instructions ?Recorded ?Confirmed nitroglycerin 0.4 mg sublingual 0.4 mg sublingual Q5M PRN Chest 11/22/19 09/29/24 tablet (Nitrostat) Pain acyclovir 200 mg capsule 200 mg PO Q12H PRN outbreaks 03/28/23 09/29/24 cyanocobalamin (vitamin B-12) 1,000 mcg SUBCUT Q1M 05/01/23 09/29/24 1,000 mcg/mL injection solution sodium phosphates 19 gram-7 118 ml NE DAILY PRN Constipation 05/01/23 09/29/24 gram/118 mL enema (Fleet Enema) bisacodyl 10 mg rectal suppository 10 mg NE DAILY PRN Constipation 05/17/23 09/29/24 acetaminophen 300 mg-codeine 30 mg 1 - 2 tab PO Q4H PRN Pain 07/12/24 09/29/24 tablet acetaminophen 325 mg tablet 650 mg PO Q4H PRN Pain, Mild 07/12/24 09/29/24 albuterol sulfate 2.5 mg/3 mL 2.5 mg inhalation Q4H PRN SOB 07/12/24 09/29/24 (0.083 %) solution for nebulization artifi.tears(hypromellose)(PF) 1.7 1 drp ophthalmic (eye) BID PRN Dry 07/12/24 09/29/24 % eye drops with applicator Eyes citalopram 20 mg tablet 20 mg PO DAILY 07/12/24 09/29/24 docusate sodium 100 mg capsule 100 mg PO DAILY 07/12/24 09/29/24 (Colace) ondansetron HCl 4 mg tablet 4 mg PO Q4H PRN Nausea And Vomiting 07/12/24 09/29/24 trazodone 50 mg tablet 50 mg PO BEDTIME 07/12/24 09/29/24 Previous Rx's ?Medication ?Instructions ?Recorded albuterol sulfate 90 mcg/actuation 1 inh inhalation QID PRN shortness 11/14/22 aerosol inhaler (Ventolin HFA) of breath or wheezing #8.5 grams amiodarone 200 mg tablet (Pacerone) 200 mg PO BID #60 tabs 07/15/24 diltiazem HCl 240 mg 240 mg PO Q24H #30 caps 07/15/24 capsule,extended release 24 hr (Cardizem CD) furosemide 40 mg tablet (Lasix) 40 mg PO QAM PRN weight gain #14 07/15/24 tabs linezolid 600 mg tablet 600 mg PO Q12H #6 tabs 07/15/24 pantoprazole 40 mg tablet,delayed 40 mg PO DAILY #60 tabs 07/15/24 release sodium bicarbonate 650 mg tablet 650 mg PO BID 30 days #60 tabs 07/15/24 Allergies Allergy/AdvReac Type Severity Reaction Status Date / Time Penicillins Allergy Unknown Unknown Verified 09/29/24 00:49 Review of Systems General: Reports: 10 or more systems reviewed and unremarkable except in HPI and below PFSH ED PFSH: Medical History Systolic CHF Renal failure (ARF), acute on chronic AMS (altered mental status) Metabolic encephalopathy Expressive aphasia End stage renal disease Right leg DVT Iliac DVT (deep venous thrombosis) Pleural effusion, left CHRISTY (obstructive sleep apnea) Eosinophilic asthma History of stroke BPH (benign prostatic hyperplasia) Myocardial infarct ASHD (arteriosclerotic heart disease) Diabetes 1.5, managed as type 2 HTN (hypertension) Hyperlipidemia Surgical History History of knee replacement (~2014) History of shoulder replacement S/P shoulder replacement S/P knee replacement H/O esophagogastroduodenoscopy (09/26/20) History of colonoscopy (09/26/20) S/P PTCA (percutaneous transluminal coronary angioplasty) Family History Mother Dementia Denies family history of Family history of premature coronary artery disease Social History Smoking and tobacco/nicotine status: former use of tobacco/nicotine Quit status (tobacco/nicotine): has quit using Year quit tobacco: 1971 Former quit date comment: 2ppd x 10 years Alcohol intake: never Household members: spouse Marital status: service: No Current occupational status: retired Physical Exam Const: COMMON NORMALS: no acute distress, average body habitus, patient oriented x3, no limitations, healthy appearing, alert and well nourished HENMT: COMMON NORMALS: normocephalic, atraumatic, hearing grossly normal bilaterally, external ears normal, Normal external nose present, moist oral mucous membranes and oropharynx normal HEAD & SCALP: normocephalic and atraumatic NOSE: Normal external nose present EXTERNAL EAR: Yes external ears normal Neck/C-Spine: COMMON NORMALS: no JVD Chest: COMMONS NORMALS: normal inspection of the chest and normal palpation of entire chest wall Resp: COMMON NORMALS: normal respiratory effort, No retractions, No use of accessory muscles and clear to auscultation bilaterally AUSCULTATION: clear to auscultation bilaterally Cardio: COMMON NORMALS: no JVD, regular rate, regular rhythm, S1 normal heart sound present, S2 normal heart sound present, No gallops present (Cardio), No clicks present (Cardio), No murmurs present (Cardio) and No rub (Cardio) RATE: regular rate RHYTHM: regular rhythm HEART SOUNDS: S1 normal heart sound present and S2 normal heart sound present GI: COMMON NORMALS: Normal to inspection, nondistended, normoactive bowel sounds present (Large protuberant abdominal wall hernia), Soft to palpation, non-tender, No hepatosplenomegaly present and no masses PALPATION: Yes Soft to palpation and Yes No hepatosplenomegaly present Extremity: NARRATIVE EXTREMITY EXAM: 1-2+ pitting edema bilateral lower extremities Neuro: COMMON NORMALS: patient oriented x3 SENSORIUM/ORIENTATION: Yes alert Course Vital Signs: Vital signs: Vital Signs Temperature 97.7 F 03/05/25 19:28 Pulse Rate 88 09/29/24 19:28 Respiratory Rate 18 09/29/24 19:28 Blood Pressure 110/65 09/29/24 19:28 Pulse Oximetry 96 09/29/24 19:28 Oxygen Delivery Me thod Nasal Cannula 09/29/24 19:28 Oxygen Flow Rate 3 09/29/24 19:28 MDM - Abdominal Pain Medical Decision Making Physical exam was performed, lab work was obtained, hemoglobin 6.2, hematocrit 28.7, BUN/creatinine of 65/5.8, potassium 5.6, phosphorus 4.5, magnesium 2.1, calcium 9.2, BNP approximately 12,000, lipase 31, discussed these results with the patient and his need for blood transfusion. Also for diuresis and to lower his potassium. Patient is willing to come to the hospital. Discussed these results with Dr. Tracey. We will place the patient inpatient in [facility] We will put orders in for 2 units of blood, 60 mg Lasix IV, 1 g calcium chloride, dextrose bolus, and 10 units of IV insulin Medical Records I reviewed the patient's medical records. Lab Data I reviewed the patient's lab results. 09/29/24 19:06 09/29/24 13:27 Labs/Radiology: Radiology Impressions Thoracentesis Ultrasound 09/29/24 03:10 IMPRESSION: 1. Uncomplicated ultrasound-guided LEFT thoracentesis with removal of 900 cc. 2. No pneumothorax Chest X-Ray 09/29/24 14:39 IMPRESSION: Improved LEFT pleural effusion postthoracentesis. No visualized pneumothorax. Laboratory Results WBC 10.43 10^3/uL (3.29-11.43) 09/29/24 01:20 RBC 2.06 10^6/uL (3.85-5.65) L 09/29/24 01:20 Hgb 6.20 g/dL (11.27-16.99) L* 09/29/24 01:20 Hct 20.7 % (37-53) L* 09/29/24 01:20 MCV 100.5 fl (82-101) 09/29/24 01:20 MCH 30.1 pg (27-33) 09/29/24 01:20 MCHC 30.0 g/dL (30-55) 09/29/24 01:20 RDW 15.1 % (12.1-15.1) 09/29/24 01:20 Plt Count 553 10^3/cmm (157-399) H 09/29/24 01:20 MPV 8.8 fL (7.4-10.4) 09/29/24 01:20 Neut % (Auto) 81.1 % 09/29/24 01:20 Lymph % (Auto) 8.0 % 09/29/24 01:20 [place] % (Auto) 7.8 % 09/29/24 01:20 Eos % (Auto) 2.2 % 09/29/24 01:20 Baso % (Auto) 0.2 % 09/29/24 01:20 Neut # (Auto) 8.47 10^3/uL (1.8-7.7) H 09/29/24 01:20 Lymph # (Auto) 0.8 10^3/uL (0.8-4.8) 09/29/24 01:20 [place] # (Auto) 0.8 10^3/uL (0.2-0.9) 09/29/24 01:20 Eos # (Auto) 0.2 10^3/uL (0.0-0.8) 09/29/24 01:20 Baso # (Auto) 0.0 10^3/uL (0.0-0.1) 09/29/24 01:20 Nucleated RBC % (auto) 0 % 09/29/24 01:20 Nucleated RBCs # 0.0 /100WBC 09/29/24 01:20 Sodium 134 mmol/L (136-145) L 09/29/24 01:20 Potassium 5.6 mmol/L (3.5-5.1) H 09/29/24 01:20 Chloride 102 mmol/L (98-107) 09/29/24 01:20 Carbon Dioxide 17 mmol/L (22-29) L 09/29/24 01:20 Anion Gap 20.6 (5-19) H 09/29/24 01:20 BUN 65 mg/dL (8-23) H 09/29/24 01:20 Creatinine 5.8 mg/dL (0.7-1.2) H* 09/29/24 01:20 GFR Calculation Not Reportable 09/29/24 01:20 Glucose 136 mg/dL (65-115) H 09/29/24 01:20 Calculated Osmolality 299 mOsm/kg (285-295) H 09/29/24 01:20 Calcium 9.2 mg/dL (8.5-10.5) 09/29/24 01:20 Phosphorus 4.5 mg/dL (2.5-4.5) 09/29/24 01:20 Magnesium 2.1 mg/dL (1.7-2.3) 09/29/24 01:20 Iron 17 ug/dL (59-158) L 09/28/24 01:20 Ferritin 168 ng/mL (30-400) 09/28/24 01:20 Total Bilirubin 0.2 mg/dL (0.15-1.2) 09/29/24 01:20 AST 5 U/L (0-40) 09/29/24 01:20 ALT < 5 U/L (0-41) 09/29/24 01:20 Alkaline Phosphatase 100 U/L (40-130) 09/29/24 01:20 Lactate Dehydrogenase 128 U/L (135-225) L 09/29/24 01:20 NT-Pro-B Natriuret Pep 87873 pg/mL (0-450) H 09/29/24 01:20 Total Protein 6.8 g/dL (6.6-8.7) 09/29/24 01:20 Albumin 3.6 g/dL (3.5-5.2) 09/29/24 01:20 Globulin 3.2 g/dL (1.3-4.6) 09/29/24 01:20 Lipase 31 U/L (13-60) 09/29/24 01:20 Blood Type O Positive 09/29/24 02:20 Rho(D) Type Rh positive 09/29/24 02:20 Antibody Screen Negative 09/29/24 02:20 Crossmatch See Detail 09/29/24 02:20 All radiology interpretation(s) finalized by discharge Discharge Plan Discharge Patient Disposition: Admitted As Inpatient Admit Provider: Olive Tracey Clinical Impression: End stage renal disease, Systolic CHF, Anemia due to chronic kidney disease, Acute hyperkalemia Condition: Stable Coding Level of Care Code ED Geophysical Party Chief for Serag Vickie
[2024-09-29 01:40] LABS: Basophils % 0.2 %; Eosinophils # 0.2 10^3/uL (0.0-0.8); Eosinophils % 2.2 %; Lymphocytes # 0.8 10^3/uL (0.8-4.8); Mean Corpuscular Hemoglobin 30.1 pg (27-33); Mean Corpuscular Volume 100.5 fl (82-101); Mean Platelet Volume 8.8 fL (7.4-10.4); Monocytes # 0.8 10^3/uL (0.2-0.9); Monocytes % 7.8 %; Neutrophils # 8.47 10^3/uL (1.8-7.7); Neutrophils % 81.1 %; Nucleated Red Blood Cells % 0 %; Platelet Count 553 10^3/cmm (157-399); Red Blood Count 2.06 10^6/uL (3.85-5.65); Red Cell Distribution Width 15.1 % (12.1-15.1); White Blood Count 10.43 10^3/uL (3.29-11.43)
[2024-09-29 01:44] LABS: Hematocrit 20.7 % (37-53)
[2024-09-29 02:12] LABS: Alanine Aminotransferase < 5 U/L (0-41); Albumin Level 3.6 g/dL (3.5-5.2); Alkaline Phosphatase 100 U/L (40-130); Anion Gap 20.6 (5-19); Aspartate Amino Transferase 5 U/L (0-40); Blood Urea Nitrogen 65 mg/dL (8-23); Calcium 9.2 mg/dL (8.5-10.5); Carbon Dioxide 17 mmol/L (22-29); Chloride 102 mmol/L (98-107); Globulin 3.2 g/dL (1.3-4.6); Glucose 136 mg/dL (65-115); Lipase 31 U/L (13-60); Magnesium 2.1 mg/dL (1.7-2.3); NT Pro B Type Natriuretic Pept 12352 pg/mL (0-450); Osmolality Calculated 299 mOsm/kg (285-295); Phosphorus 4.5 mg/dL (2.5-4.5); Potassium 5.6 mmol/L (3.5-5.1); Sodium 134 mmol/L (136-145); Total Bilirubin 0.2 mg/dL (0.15-1.2); Total Protein 6.8 g/dL (6.6-8.7)
--- NOTE | 2024-09-29 02:17 | ECG_ITS ---
[facility] Test Date: 2024-09-29 Pat Name: Jhon Marcos Department: Room: Gender: Male Lines Tender: : 1945 Requested By: Bill Andrea Order Number: [id number] Shannan MD: Pieter Gomez M.D. Measurements Intervals [place] Rate: 82 P: 47 WI: 192 QRS: -37 QRSD: 92 T: 32 QT: 358 QTc: 421 Interpretive Statements SINUS RHYTHM POSSIBLE LEFT ATRIAL ENLARGEMENT [-0.1mV P-WAVE IN V1/V2] LEFT AXIS DEVIATION [QRS AXIS < -30] INCOMPLETE RIGHT BUNDLE BRANCH BLOCK [90+ ms QRS DURATION, TERMINAL R IN V1/V2, 40+ ms S IN I/aVL/V4/V5/V6] SEPTAL MYOCARDIAL INFARCTION , PROBABLY OLD [40+ ms Q WAVE IN V1/V2] Compared to ECG 09/05/2024 00:23:26 Incomplete right bundle-branch block now present Sinus arrhythmia no longer present Myocardial infarct finding still present Electronically Signed On 10-02-2024 18:10:03 PIPE CHIPPER by Pieter Gomez M.D. [email or web address]
[2024-09-29] MEDS: FUROsemide 10 mg/mL SDV 10mL 60 MG IVP (02:49)
[2024-09-29] MEDS: insulin regular-human 100 units/1 mL 10 UNIT IVP (02:49)
[2024-09-29] MEDS: calcium chloride 10% Syr 10 mL 1 GM IVP (02:50)
--- NOTE | 2024-09-29 02:59 | PM.HP ---
Providers/Chief Complaint Primary Care Provider: Ramiro Villavicencio MD Chief Complaint: abdomen pain History of Present Illness Jhon Marcos is a 79 year old male with history of chronic kidney disease, was on dialysis in the past, permacath removed, chronic recurrent anemia, CHF, A-fib off anticoagulation, BPH, cardiomyopathy EF 40%, presented with concerns related to worsening of shortness of breath. Patient is stating that for last few days he has been noticing more shortness of breath which he is attributing to increased swelling of his ventral abdominal wall hernia, he has not noticed any nausea or vomiting, last bowel movement was yesterday, patient is stating that he has stopped taking diuretics, Workup in the ER revealed hemoglobin 6.2, requested occult blood test, patient is hemodynamically stable, he has anasarca Review of records revealed that in the past patient was FOBT positive, he was given blood transfusion in the setting of chronic renal disease he was discharged on Protonix and Carafate he was asked to follow-up with surgeon if hemoglobin trended down, he also had thoracentesis done June 2024 1100 cc of fluid was drained from left pleural which was transudative in nature related to CHF Patient is denying melanotic stools, blood in urine, no active vomiting Patient is stating that he does not use oxygen at baseline, was able to use a walker but has not been able to do so secondary to worsening of swelling of lower extremities Nursing records revealed DNR/DNI CODE STATUS Review of Systems Const: Reports: change in weight Eyes: Denies: change in vision ENMT: Denies: throat pain Card: Reports: swelling of feet/ankles Resp: Reports: dyspnea GI: Reports: nausea and bloating : Denies: flank pain Medications/Allergies Home Medications ?Medication ?Instructions ?Recorded ?Confirmed ?Last Taken ?Type nitroglycerin 0.4 mg sublingual 0.4 mg sublingual Q5M PRN Chest 11/22/19 07/12/24 03/21/23 History tablet (Nitrostat) Pain albuterol sulfate 90 mcg/actuation 1 inh inhalation QID PRN shortness 11/14/22 07/12/24 03/21/23 Rx aerosol inhaler (Ventolin HFA) of breath or wheezing #8.5 grams acyclovir 200 mg capsule 200 mg PO Q12H PRN outbreaks 03/28/23 07/12/24 Unknown History cyanocobalamin (vitamin B-12) 1,000 mcg SUBCUT Q1M 05/01/23 07/12/24 05/02/23 History 1,000 mcg/mL injection solution sodium phosphates 19 gram-7 118 ml ME DAILY PRN Constipation 05/01/23 07/12/24 Unknown History gram/118 mL enema (Fleet Enema) bisacodyl 10 mg rectal suppository 10 mg ME DAILY PRN Constipation 05/17/23 07/12/24 Unknown History acetaminophen 300 mg-codeine 30 mg 1 - 2 tab PO Q4H PRN Pain 07/12/24 07/12/24 Unknown History tablet acetaminophen 325 mg tablet 650 mg PO Q4H PRN Pain, Mild 07/12/24 07/12/24 Unknown History albuterol sulfate 2.5 mg/3 mL 2.5 mg inhalation Q4H PRN SOB 07/12/24 07/12/24 Unknown History (0.083 %) solution for nebulization artifi.tears(hypromellose)(PF) 1.7 1 drp ophthalmic (eye) BID PRN Dry 07/12/24 07/12/24 Unknown History % eye drops with applicator Eyes citalopram 20 mg tablet 20 mg PO DAILY 07/12/24 07/12/24 Unknown History docusate sodium 100 mg capsule 100 mg PO DAILY 07/12/24 07/12/24 Unknown History (Colace) ondansetron HCl 4 mg tablet 4 mg PO Q4H PRN Nausea And Vomiting 07/12/24 07/12/24 Unknown History trazodone 50 mg tablet 50 mg PO BEDTIME 07/12/24 07/12/24 Unknown History amiodarone 200 mg tablet (Pacerone) 200 mg PO BID #60 tabs 07/15/24 Unknown Rx diltiazem HCl 240 mg 240 mg PO Q24H #30 caps 07/15/24 Unknown Rx capsule,extended release 24 hr (Cardizem CD) furosemide 40 mg tablet (Lasix) 40 mg PO QAM PRN weight gain #14 07/15/24 Unknown Rx tabs linezolid 600 mg tablet 600 mg PO Q12H #6 tabs 07/15/24 Unknown Rx pantoprazole 40 mg tablet,delayed 40 mg PO DAILY #60 tabs 07/15/24 07/12/24 05/29/23 Rx release sodium bicarbonate 650 mg tablet 650 mg PO BID 30 days #60 tabs 07/15/24 Unknown Rx Allergies Allergy/AdvReac Type Severity Reaction Status Date / Time Penicillins Allergy Unknown Unknown Verified 09/29/24 00:49 PFSH Acute PFSH: Medical History Systolic CHF Renal failure (ARF), acute on chronic AMS (altered mental status) Metabolic encephalopathy Expressive aphasia End stage renal disease Right leg DVT Iliac DVT (deep venous thrombosis) Pleural effusion, left CHRISTY (obstructive sleep apnea) Eosinophilic asthma History of stroke BPH (benign prostatic hyperplasia) Myocardial infarct ASHD (arteriosclerotic heart disease) Diabetes 1.5, managed as type 2 HTN (hypertension) Hyperlipidemia Surgical History History of knee replacement (~2014) History of shoulder replacement S/P shoulder replacement S/P knee replacement H/O esophagogastroduodenoscopy (09/26/20) History of colonoscopy (09/26/20) S/P PTCA (percutaneous transluminal coronary angioplasty) Family History Mother Dementia Denies family history of Family history of premature coronary artery disease Social History Smoking and tobacco/nicotine status: former use of tobacco/nicotine Quit status (tobacco/nicotine): has quit using Year quit tobacco: 1971 Former quit date comment: 2ppd x 10 years Alcohol intake: never Household members: spouse Marital status: service: No Current occupational status: retired Vitals/I&O/Wt Last Vital Signs Temp 97.6 F 09/29/24 00:45 Pulse 85 09/29/24 00:49 Resp 20 H 09/29/24 00:49 BP 181/90 09/29/24 00:49 Pulse Ox 96 09/29/24 00:49 O2 Del Method Room Air 09/29/24 00:49 09/28/24 09/28/24 09/29/24 14:59 22:59 06:59 Intake Total 0 / 0 Balance 0 / 0 Physical Exam Narrative: Patient has anasarca Currently on room air saturating well Hemodynamic stable Anasarca extending all the way up to abdominal wall Abdominal wall ventral hernia no signs of peritonitis No sign of obstruction No active emesis S1, S2 variable A-fib without RVR Abdomen is soft GCS 15 AOx4 Signs present related to CHF Orthopnea and PND present No active chest pain No active focal deficit Data 09/29/24 01:20 09/29/24 01:20 A&P Assessment and plan (1) HTN (hypertension): (2) Systolic CHF: (3) Exertional dyspnea: (4) Ventral incisional hernia: (5) Acute hyperkalemia: (6) Anemia: (7) Anemia due to chronic kidney disease: (8) Shortness of breath: Plan Acute systolic CHF exacerbation Worsening bilateral pleural effusion Large greater than left Patient is endorsing not taking diuretics Starting high-dose diuretics IV Will request thoracentesis as well Last thoracentesis was in June 2024 which was transudative Currently patient is afebrile, not requiring oxygen Anemia of chronic disease History of FOBT positive Call blood test requested Hemodynamically stable Start Protonix Secondary to active fluid overload/anasarca not an ideal candidate for endoscopy or colonoscopy at this point Patient is suffering orthopnea and PND as well Requested blood unit Hyperkalemia with MAYTE Patient endorsing making enough urine without the help of diuretics Monitor urine output request Conteh catheter Mild hyperkalemia 5.6 Repeat BMP in 3 hours after the dose of diuretics Patient has been on dialysis in the past A-fib without RVR Off anticoagulating agent Continue amiodarone Judicious use of Cardizem DNR/DNI as per the nursing record Cardiac diet DVT prophylaxis: SCDs PDMP PDMP Reviewed: Not Reviewed Attestations Medical Necessity Statement*: Anticipating more than 2 midnights for management of anemia, CHF, renal failure Diagnoses HTN (hypertension) I10 Systolic CHF I50.20 Exertional dyspnea R06.09 Ventral incisional hernia K43.2 Acute hyperkalemia E87.5 Anemia D64.9 Anemia due to chronic kidney disease N18.9; D63.1 Shortness of breath R06.02
--- NOTE | 2024-09-29 03:10 | US_ITS ---
WS: [id number] ULTRASOUND-GUIDED THORACENTESIS CLINICAL INFORMATION: Left greater than right PROCEDURE: Informed consent: The risks, benefits, and alternatives of the procedure were discussed with the patient. Verbal and written consent was obtained. Timeout: A timeout was performed to confirm the correct patient, procedure, and site. Site: LEFT chest Preparation: A suitable skin site was identified. The patient was prepped and draped in usual sterile fashion. Lidocaine 1% was used for local anesthesia. Catheter: 4 [place] One-Step catheter. Fluid Volume: 900 cc Color: Clear yellow Complications: None. / thoracentesis [id number] IMPRESSION: 1. Uncomplicated ultrasound-guided LEFT thoracentesis with removal of 900 cc. 2. No pneumothorax
[2024-09-29 03:34] LABS: Lactate Dehydrogenase 128 U/L (135-225)
[2024-09-29 04:18] LABS: Basophils % 0.1 %; Eosinophils # 0.1 10^3/uL (0.0-0.8); Eosinophils % 1.2 %; Lymphocytes # 1.1 10^3/uL (0.8-4.8); Lymphocytes % 10.2 %; Mean Corpuscular HGB Conc 29.7 g/dL (30-55); Mean Corpuscular Hemoglobin 29.7 pg (27-33); Mean Platelet Volume 8.9 fL (7.4-10.4); Monocytes # 0.9 10^3/uL (0.2-0.9); Monocytes % 8.8 %; Neutrophils # 8.35 10^3/uL (1.8-7.7); Neutrophils % 79.3 %; Nucleated Red Blood Cells % 0 %; Platelet Count 519 10^3/cmm (157-399); Red Blood Count 1.92 10^6/uL (3.85-5.65); Red Cell Distribution Width 15.1 % (12.1-15.1); White Blood Count 10.54 10^3/uL (3.29-11.43)
[2024-09-29 04:20] LABS: Hematocrit 19.2 % (37-53)
[2024-09-29 04:36] LABS: Anion Gap 18.8 (5-19); Blood Urea Nitrogen 62 mg/dL (8-23); Calcium 9.9 mg/dL (8.5-10.5); Carbon Dioxide 17 mmol/L (22-29); Chloride 105 mmol/L (98-107); Glucose 64 mg/dL (65-115); Osmolality Calculated 298 mOsm/kg (285-295); Potassium 4.8 mmol/L (3.5-5.1); Sodium 136 mmol/L (136-145)
[2024-09-29] MEDS: dilTIAZem ER (24HR) 240 mg Capsule PO (05:27)
--- NOTE | 2024-09-29 07:41 | PC.PHAR ---
patient is from [facility]
[2024-09-29] MEDS: sodium bicarbonate 650 mg Tablet PO ×2 (10:07→18:36)
[2024-09-29] MEDS: sennosides-docusate Tablet 1 TAB PO (10:07)
[2024-09-29] MEDS: amiodarone 200 mg Tablet PO ×2 (10:07→18:36)
[2024-09-29] MEDS: pantoprazole 40 mg SDV IVP ×2 (11:31→18:36)
[2024-09-29] MEDS: FUROsemide 10 mg/mL SDV 10mL 40 MG IVP ×2 (11:38→21:36)
[2024-09-29 13:45] LABS: Basophils % 0.1 %; Eosinophils # 0.1 10^3/uL (0.0-0.8); Eosinophils % 1.5 %; Hematocrit 28.3 % (37-53); Lymphocytes % 10.1 %; Mean Corpuscular HGB Conc 29.3 g/dL (30-55); Mean Corpuscular Hemoglobin 29.5 pg (27-33); Mean Corpuscular Volume 100.7 fl (82-101); Mean Platelet Volume 9.7 fL (7.4-10.4); Monocytes # 0.8 10^3/uL (0.2-0.9); Monocytes % 8.8 %; Neutrophils # 7.59 10^3/uL (1.8-7.7); Nucleated Red Blood Cells % 0.3 %; Platelet Count 430 10^3/cmm (157-399); Red Blood Count 2.81 10^6/uL (3.85-5.65); Red Cell Distribution Width 15.6 % (12.1-15.1)
--- NOTE | 2024-09-29 13:50 | PM.CONSULT ---
Providers/Reason For Consult Consulting Physician/Specialty*: nephrology Reason for Consult*: mayte Requesting Physician: DR Hernandez Attending Physician: Felix Hernandez MD Primary Care Provider: Ramiro Villavicencio MD History of Present Illness History of Present Illness Jhon Marcos is a 79 year old male, with a history of ckd 4, anemia, CHF, A-fib, ischemic cardiomyopathy EF 40%, who to the er on 09/28/2024 complaining of a 3 day history of progressive worsening of shortness of breath with associated increased swelling of his ventral abdominal wall hernia. On presentation, his work-up revealed hgb 5.79, sodium 134, potassium 5.6, chloride 102, bicarb 17, bun 65, creatinine 5.8, bnp 12,352. He denies any nsaid use. he denies any history of melena, brbpr, or hematemesis Review of Systems General: Reports: 10 or more systems reviewed and unremarkable except in HPI and below Const: Reports: fatigue Card: Reports: edema, swelling of feet/ankles, dyspnea on exertion and orthopnea Resp: Reports: dyspnea Medications/Allergies Home Medications ?Medication ?Instructions ?Recorded ?Confirmed ?Last Taken ?Type nitroglycerin 0.4 mg sublingual 0.4 mg sublingual Q5M PRN Chest 11/22/19 09/29/24 03/21/23 History tablet (Nitrostat) Pain albuterol sulfate 90 mcg/actuation 1 inh inhalation QID PRN shortness 11/14/22 09/29/24 03/21/23 Rx aerosol inhaler (Ventolin HFA) of breath or wheezing #8.5 grams acyclovir 200 mg capsule 200 mg PO Q12H PRN outbreaks 03/28/23 09/29/24 Unknown History cyanocobalamin (vitamin B-12) 1,000 mcg SUBCUT Q1M 05/01/23 09/29/24 05/02/23 History 1,000 mcg/mL injection solution sodium phosphates 19 gram-7 118 ml [place] DAILY PRN Constipation 05/01/23 09/29/24 Unknown History gram/118 mL enema (Fleet Enema) bisacodyl 10 mg rectal suppository 10 mg CA DAILY PRN Constipation 05/17/23 09/29/24 Unknown History acetaminophen 300 mg-codeine 30 mg 1 - 2 tab PO Q4H PRN Pain 07/12/24 09/29/24 Unknown History tablet acetaminophen 325 mg tablet 650 mg PO Q4H PRN Pain, Mild 07/12/24 09/29/24 Unknown History albuterol sulfate 2.5 mg/3 mL 2.5 mg inhalation Q4H PRN SOB 07/12/24 09/29/24 Unknown History (0.083 %) solution for nebulization artifi.tears(hypromellose)(PF) 1.7 1 drp ophthalmic (eye) BID PRN Dry 07/12/24 09/29/24 Unknown History % eye drops with applicator Eyes citalopram 20 mg tablet 20 mg PO DAILY 07/12/24 09/29/24 Unknown History docusate sodium 100 mg capsule 100 mg PO DAILY 07/12/24 09/29/24 Unknown History (Colace) ondansetron HCl 4 mg tablet 4 mg PO Q4H PRN Nausea And Vomiting 07/12/24 09/29/24 Unknown History trazodone 50 mg tablet 50 mg PO BEDTIME 07/12/24 09/29/24 Unknown History amiodarone 200 mg tablet (Pacerone) 200 mg PO BID #60 tabs 07/15/24 09/29/24 Unknown Rx diltiazem HCl 240 mg 240 mg PO Q24H #30 caps 07/15/24 09/29/24 Unknown Rx capsule,extended release 24 hr (Cardizem CD) furosemide 40 mg tablet (Lasix) 40 mg PO QAM PRN weight gain #14 07/15/24 09/29/24 Unknown Rx tabs linezolid 600 mg tablet 600 mg PO Q12H #6 tabs 07/15/24 09/29/24 Unknown Rx pantoprazole 40 mg tablet,delayed 40 mg PO DAILY #60 tabs 07/15/24 09/29/24 05/29/23 Rx release sodium bicarbonate 650 mg tablet 650 mg PO BID 30 days #60 tabs 07/15/24 09/29/24 Unknown Rx Allergies Allergy/AdvReac Type Severity Reaction Status Date / Time Penicillins Allergy Unknown Unknown Verified 09/29/24 00:49 Current Medications Generic Name Dose Route Start Last Admin Trade Name Freq PRN Reason Stop Dose Admin Amiodarone HCl 200 mg 09/29/24 09:00 09/29/24 10:07 Amiodarone 200 Mg Tablet PO 200 mg BID JOSEPHINE Administration Diltiazem HCl 240 mg 09/29/24 03:01 09/29/24 05:27 Diltiazem Er (24hr) 240 Mg Capsule PO 240 mg Q24H JOSEPHINE Administration Furosemide 40 mg 09/29/24 10:00 09/29/24 11:38 Furosemide 10 Mg/Ml Sdv 10ml IVP 40 mg Q12H JOSEPHINE Administration Pantoprazole Sodium 40 mg 09/29/24 09:00 09/29/24 11:31 Pantoprazole 40 Mg Sdv IVP 40 mg BID JOSEPHINE Administration Senna/Docusate Sodium 1 tab 09/29/24 09:00 09/29/24 10:07 Sennosides-Docusate Tablet PO 1 tab DAILY JOSEPHINE Administration Sodium Bicarbonate 650 mg 09/29/24 09:00 09/29/24 10:07 Sodium Bicarbonate 650 Mg Tablet PO 650 mg BID JOSEPHINE Administration PFSH Acute PFSH: Medical History Systolic CHF Renal failure (ARF), acute on chronic AMS (altered mental status) Metabolic encephalopathy Expressive aphasia End stage renal disease Right leg DVT Iliac DVT (deep venous thrombosis) Pleural effusion, left CHRISTY (obstructive sleep apnea) Eosinophilic asthma History of stroke BPH (benign prostatic hyperplasia) Myocardial infarct ASHD (arteriosclerotic heart disease) Diabetes 1.5, managed as type 2 HTN (hypertension) Hyperlipidemia Surgical History History of knee replacement (~2014) History of shoulder replacement S/P shoulder replacement S/P knee replacement H/O esophagogastroduodenoscopy (09/26/20) History of colonoscopy (09/26/20) S/P PTCA (percutaneous transluminal coronary angioplasty) Family History Mother Dementia Denies family history of Family history of premature coronary artery disease Social History Smoking and tobacco/nicotine status: former use of tobacco/nicotine Quit status (tobacco/nicotine): has quit using Year quit tobacco: 1971 Former quit date comment: 2ppd x 10 years Alcohol intake: never Household members: spouse Marital status: service: No Current occupational status: retired Vitals/I&O/Wt Last Vital Signs Temp 97.4 F L 09/29/24 12:12 Pulse 76 09/29/24 12:12 Resp 18 09/29/24 12:12 BP 129/72 09/29/24 12:12 Pulse Ox 96 09/29/24 12:12 O2 Del Method Nasal Cannula 09/29/24 12:12 09/28/24 09/29/24 09/29/24 22:59 06:59 14:59 Intake Total 400 / 400 1450 / 1450 Output Total 1000 / 1000 Balance 400 / 400 450 / 450 Weight last 48 hrs Weight 91.172 kg Weight 91.354 kg Physical Exam Const: COMMON NORMALS: no acute distress, average body habitus, patient oriented x3, no limitations, healthy appearing, alert and well nourished HENMT: COMMON NORMALS: normocephalic and atraumatic HEAD & SCALP: normocephalic and atraumatic Eye: COMMON NORMALS: EOMs intact bilaterally and no scleral icterus Neck/C-Spine: COMMON NORMALS: full ROM and no JVD Resp: EFFORT & INSPECTION: Yes decreased respiratory effort AUSCULTATION: diminished lung sounds Cardio: COMMON NORMALS: no JVD, regular rate, regular rhythm, S1 normal heart sound present, S2 normal heart sound present and No gallops present (Cardio) RATE: regular rate RHYTHM: regular rhythm HEART SOUNDS: S1 normal heart sound present and S2 normal heart sound present GI: COMMON NORMALS: Soft to palpation and non-tender INSPECTION: Yes visible herniation (+ve ventral hernia ) PALPATION: Yes Soft to palpation Extremity: NARRATIVE EXTREMITY EXAM: +2 pedal edema Neuro: COMMON NORMALS: patient oriented x3 SENSORIUM/ORIENTATION: Yes alert Psych: COMMON NORMALS: mental status grossly normal, Normal thought process present and cooperative THOUGHT PROCESS: Normal thought process present Skin: COMMON NORMALS: no rashes or lesions noted GENERAL SKIN EXAM: no rashes or lesions noted Urinary Catheter Management: Conteh: Cath Placed During This Visit: yes Reason for Continuing Indwelling Catheter: Other Urinary Catheter Date of Insertion: 09/29/24 Urinary Catheter Time of Insertion: 03:42 Data 09/29/24 04:14 09/29/24 04:14 A&P Assessment and plan (1) Acute kidney injury superimposed on stage 4 chronic kidney disease: MAYTE superimposed on ckd stage 4- He has ckd stage 4 at baseline likely due to diabetic and hypertensive kidney disease. His mayte is likely due to cardio-renal syndrome and atn secondary to severe anemia. He is non-oliguric and his hyperkalemia is improving. There is no acute indication for renal replacement therapy at this time. - cont iv lasix acute on chronic systolic chf ef 30%- cont iv lasix. start 1200 ml fluid restriction hyperkalemia- cont iv lasix as above. anemia- ? due to gi losses. I will check iron studies. he is being transfused prbc ( 3 units total) bilateral pleural effusions- he will need a thoracentesis. PDMP PDMP Reviewed: Not Reviewed Consult Attestations Medical Necessity Statement: mayte, anemia, chf Time Spent in Patient Care: 50 minutes Coding Level of Care Code Acute Code for [facility] Fwd Diagnoses Acute kidney injury superimposed on stage 4 chronic kidney disease N17.9; N18.4
[2024-09-29 13:56] LABS: INR 0.88 (0.8-1.2)
[2024-09-29 14:01] LABS: Blood Urea Nitrogen 69 mg/dL (8-23); Calcium 9.1 mg/dL (8.5-10.5); Carbon Dioxide 16 mmol/L (22-29); Chloride 103 mmol/L (98-107); Glucose 146 mg/dL (65-115); Osmolality Calculated 299 mOsm/kg (285-295); Sodium 133 mmol/L (136-145)
--- NOTE | 2024-09-29 14:06 | P.PN_ITS ---
Vitals/I&O/Wt Last Vital Signs Temp 97.4 F L 09/29/24 12:12 Pulse 76 09/29/24 12:12 Resp 18 09/29/24 12:12 BP 129/72 09/29/24 12:12 Pulse Ox 96 09/29/24 12:12 O2 Del Method Nasal Cannula 09/29/24 12:12 09/28/24 09/29/24 09/29/24 22:59 06:59 14:59 Intake Total 400 / 400 1450 / 1450 Output Total 1000 / 1000 Balance 400 / 400 450 / 450 Weight last 48 hrs Weight 91.172 kg Weight 91.354 kg Physical Exam 2 Const: COMMON NORMALS: no acute distress and patient oriented x3 Resp: COMMON NORMALS: normal respiratory effort, No retractions and No use of accessory muscles AUSCULTATION: crackles Cardio: COMMON NORMALS: regular rate, regular rhythm, S1 normal heart sound present and S2 normal heart sound present RATE: regular rate RHYTHM: r egular rhythm HEART SOUNDS: S1 normal heart sound present and S2 normal heart sound present GI: COMMON NORMALS: Normal to inspection, nondistended, normoactive bowel sounds present and non-tender Extremity: NARRATIVE EXTREMITY EXAM: 2+ edema Neuro: COMMON NORMALS: patient oriented x3 Psych: COMMON NORMALS: mental status grossly normal Urinary Catheter Management: Conteh: Cath Placed During This Visit: yes Reason for Continuing Indwelling Catheter: Other Urinary Catheter Date of Insertion: 09/29/24 Urinary Catheter Time of Insertion: 03:42 Data 09/29/24 04:14 09/29/24 13:27 A&P Assessment and plan (1) HTN (hypertension): (2) Systolic CHF: (3) Exertional dyspnea: (4) Ventral incisional hernia: (5) Acute hyperkalemia: (6) Anemia: (7) Anemia due to chronic kidney disease: (8) Shortness of breath: Plan Acute systolic CHF exacerbation bilateral pleural effusion Will order thoracentesis, last thoracentesis July 20 transudative Lasix 40 IV twice daily MAYTE on CKD -History of CKD requiring dialysis, dialysis catheter was removed September 10, 2023 -Creatinine 5.6 -Monitor urine output, monitor creatinine -Nephrology consulted Anemia History of FOBT positive -Will repeat FOBT, iron studies Status post 2 units PRBC Protonix, Carafate No significant hemodynamic instability Will consider EGD and colonoscopy as her clinical progress Hyperkalemia with MAYTE Monitor A-fib without RVR Off anticoagulating agent Continue amiodarone DNR/DNI as per the nursing record Cardiac diet DVT prophylaxis: SCDs Plan for today continue IV diuresis, monitor BMP, monitor hemoglobin every 6 hours, consult nephrology PDMP PDMP Reviewed: Not Reviewed Attestations 2 Medical Necessity Statement*: Patient requires hospitalization for acute systolic CHF exacerbation, MAYTE on CKD, acute anemia, hypokalemia, A-fib, Diagnoses HTN (hypertension) I10 Systolic CHF I50.20 Exertional dyspnea R06.09 Ventral incisional hernia K43.2 Acute hyperkalemia E87.5 Anemia D64.9 Anemia due to chronic kidney disease N18.9; D63.1 Shortness of breath R06.02
[2024-09-29 14:07] LABS: Slide Review Slide Review Perform
--- NOTE | 2024-09-29 14:39 | XR_ITS ---
WS: [id number] CHEST XRAY TECHNIQUE: Portable chest. CLINICAL INFORMATION: thoracentesis FINDINGS: Heart: Cardiomegaly. Lungs: Improved LEFT pleural effusion postthoracentesis. No pneumothorax. Small RIGHT pleural effusion. Bibasilar atelectasis. Bones: Osteopenia. Postoperative changes RIGHT TSA. XR/XR chest 1V portable [id number] IMPRESSION: Improved LEFT pleural effusion postthoracentesis. No visualized pneumothorax.
[2024-09-29 14:43] LABS: Ferritin 168 ng/mL (30-400); Iron 17 ug/dL (59-158)
[2024-09-29 14:56] LABS: Mononuclear %, Pleural Fluid 71 %; Mononuclear, Pleural Fluid # 0.258 10^3/uL; Polynuclear Cells, Pleural # 0.106 10^3/uL; Polynuclear Cells, Pleural % 29 %
[2024-09-29 15:01] LABS: Appearance, Pleural Fluid CLOUDY (CLEAR); Color, Pleural Fluid Yellow (Pale Yellow); Left Pleural Fluid Analysis Left Lung; PATH Referral YES
[2024-09-29 15:02] LABS: Fluid Laterality LEFT PLUERAL FL; PATH Referal YES
[2024-09-29 15:27] LABS: LDH Pleural Fluid 82 U/L
[2024-09-29] MEDS: sucralfate 1 gm/10 mL Oral Liq UDC PO ×2 (18:36→23:25)
[2024-09-29 20:02] LABS: Hematocrit 26.2 % (37-53)
[2024-09-30] VITALS (9 sets, daily range): BP systolic 131–166; BP diastolic 56–85; PULSE 76–88; RESP 15–18; TEMP 36.4–36.9; O2SAT 96–99
[2024-09-30] MEDS: trazodone 50 mg Tablet PO ×2 (00:12→21:07)
[2024-09-30 00:33] LABS: Hematocrit 25.6 % (37-53)
[2024-09-30 00:51] LABS: Creatinine Urine, Random 25 mg/dL (39-259); Urine Random Sodium 79 mmol/L
[2024-09-30] MEDS: dilTIAZem ER (24HR) 240 mg Capsule PO (01:52)
[2024-09-30] MEDS: sucralfate 1 gm/10 mL Oral Liq UDC PO ×3 (05:19→17:52)
[2024-09-30 06:28] LABS: Alanine Aminotransferase 6 U/L (0-41); Albumin Level 3.1 g/dL (3.5-5.2); Alkaline Phosphatase 93 U/L (40-130); Aspartate Amino Transferase 6 U/L (0-40); Blood Urea Nitrogen 58 mg/dL (8-23); C Reactive Protein 21.1 mg/L (0.0-4.9); Calcium 8.9 mg/dL (8.5-10.5); Carbon Dioxide 15 mmol/L (22-29); Chloride 100 mmol/L (98-107); Creatinine Clr Calc Pharmacy 13.1569; Glucose 119 mg/dL (65-115); Osmolality Calculated 289 mOsm/kg (285-295); Sodium 131 mmol/L (136-145); Total Bilirubin 0.4 mg/dL (0.15-1.2); Total Protein 6.1 g/dL (6.6-8.7)
[2024-09-30 06:29] LABS: Anion Gap 20.7 (5-19); Potassium 4.7 mmol/L (3.5-5.1)
[2024-09-30 06:37] LABS: NT Pro B Type Natriuretic Pept 11351 pg/mL (0-450)
[2024-09-30 06:42] LABS: Magnesium 1.9 mg/dL (1.7-2.3)
[2024-09-30] MEDS: sodium bicarbonate 650 mg Tablet PO ×2 (09:25→17:52)
[2024-09-30] MEDS: sennosides-docusate Tablet 1 TAB PO (09:25)
[2024-09-30] MEDS: amiodarone 200 mg Tablet PO ×2 (09:25→17:52)
[2024-09-30] MEDS: pantoprazole 40 mg SDV IVP ×2 (09:27→17:52)
[2024-09-30] MEDS: FUROsemide 10 mg/mL SDV 10mL 40 MG IVP ×2 (09:31→21:08)
[2024-09-30 09:41] LABS: Basophils % 0.1 %; Eosinophils # 0.2 10^3/uL (0.0-0.8); Eosinophils % 2.2 %; Hematocrit 26.9 % (37-53); Lymphocytes % 9.3 %; Mean Corpuscular HGB Conc 32.3 g/dL (30-55); Mean Corpuscular Hemoglobin 31.2 pg (27-33); Mean Corpuscular Volume 96.4 fl (82-101); Mean Platelet Volume 8.8 fL (7.4-10.4); Monocytes # 0.9 10^3/uL (0.2-0.9); Monocytes % 8.9 %; Neutrophils # 8.04 10^3/uL (1.8-7.7); Neutrophils % 78.9 %; Nucleated Red Blood Cells % 0 %; Platelet Count 518 10^3/cmm (157-399); Red Blood Count 2.79 10^6/uL (3.85-5.65); Red Cell Distribution Width 15.4 % (12.1-15.1); White Blood Count 10.19 10^3/uL (3.29-11.43)
[2024-09-30 10:01] LABS: Lactate Dehydrogenase 179 U/L (135-225)
[2024-09-30 13:29] LABS: Hematocrit 27.3 % (37-53)
--- NOTE | 2024-09-30 13:32 | P.PN_ITS ---
Subjective 2 Subjective: Patient has no new complaints on room air. He is s/p throacentesis Medications: Reviewed: Yes Vitals/I&O/Wt Last Vital Signs Temp 98.0 F 09/30/24 11:38 Pulse 80 09/30/24 11:38 Resp 16 09/30/24 11:38 BP 153/74 09/30/24 11:38 Pulse Ox 98 09/30/24 11:38 O2 Del Method Room Air 09/30/24 11:38 O2 Flow Rate 1 09/30/24 03:29 09/29/24 09/30/24 09/30/24 22:59 06:59 14:59 Intake Total 1040 / 2490 120 / 2610 460 / 460 Output Total 600 / 1600 700 / 2300 1550 / 1550 Balance 440 / 890 -580 / 310 -1090 / -1090 Weight last 48 hrs Weight 91.762 kg Weight 91.172 kg Weight 91.354 kg Physical Exam 2 Const: COMMON NORMALS: no acute distress, average body habitus, patient oriented x3 and no limitations HENMT: COMMON NORMALS: normocephalic and atraumatic HEAD & SCALP: n ormocephalic and atraumatic Eye: COMMON NORMALS: EOMs intact bilaterally and no scleral icterus Neck/C-Spine: COMMON NORMALS: full ROM and no JVD Resp: COMMON NORMALS: normal respiratory effort and clear to auscultation bilaterally AUSCULTATION: clear to auscultation bilaterally Cardio: COMMON NORMALS: no JVD, regular rate, regular rhythm, S1 normal heart sound present and S2 normal heart sound present RATE: regular rate RHYTHM: regular rhythm HEART SOUNDS: S1 normal heart sound present and S2 normal heart sound present GI: COMMON NORMALS: Soft to palpation and non-tender PALPATION: Yes Soft to palpation Extremity: COMMON NORMALS: normal to inspection, full ROM and no pedal edema NARRATIVE EXTREMITY EXAM: bilateral compression stockings in place Neuro: COMMON NORMALS: patient oriented x3 Psych: COMMON NORMALS: mental status grossly normal, Normal thought process present and cooperative THOUGHT PROCESS: Normal thought process present Skin: COMMON NORMALS: no rashes or lesions noted GENERAL SKIN EXAM: no rashes or lesions noted Urinary Catheter Management: Conteh: Cath Placed During This Visit: yes Reason for Continuing Indwelling Catheter: Acute Urinary Retention or Obstruction Urinary Catheter Date of Insertion: 09/29/24 Urinary Catheter Time of Insertion: 03:42 Data 09/30/24 13:12 09/30/24 05:58 A&P Assessment and plan (1) Acute kidney injury superimposed on stage 4 chronic kidney disease: (2) Systolic CHF: (3) Acute hyperkalemia: (4) Anemia due to chronic kidney disease: Plan MAYTE superimposed on ckd stage 4- He has ckd stage 4 at baseline likely due to diabetic and hypertensive kidney disease. His mayte is likely due to cardio-renal syndrome and atn secondary to severe anemia. HIs creatinine is stable. He also non-oliguric with stable lytes. There is no acute indication for renal replacement therapy at this time. - cont iv lasix acute on chronic systolic chf ef 30%- improved. cont iv lasix. start 1200 ml fluid restriction hyperkalemia- cont iv lasix as above. anemia- ? due to gi losses. He is iron deficient. i will start iv iron. his hgb is stable s/p transfusions bilateral pleural effusions- he is s/p thoracentesis. PDMP PDMP Reviewed: Not Reviewed Attestations 2 Medical Necessity Statement*: mayte Time Spent in Patient Care: 25 minutes Coding Level of Care Code Acute Code for [facility] Fwd Diagnoses Acute kidney injury superimposed on stage 4 chronic kidney disease N17.9; N18.4 Systolic CHF I50.20 Acute hyperkalemia E87.5 Anemia due to chronic kidney disease N18.9; D63.1
--- NOTE | 2024-09-30 15:25 | P.PN_ITS ---
Subjective 2 Subjective: Patient was seen this morning, he is alert oriented x 2, following all commands denies any fevers, chills, no cough, no nausea, vomiting he tells me his breathing is improved currently on room air, denies any bloody black stools Vitals/I&O/Wt Last Vital Signs Temp 98.0 F 09/30/24 11:38 Pulse 80 09/30/24 11:38 Resp 16 09/30/24 11:38 BP 153/74 09/30/24 11:38 Pulse Ox 98 09/30/24 11:38 O2 Del Method Room Air 09/30/24 11:38 O2 Flow Rate 1 09/30/24 03:29 09/30/24 09/30/24 09/30/24 06:59 14:59 22:59 Intake Total 120 / 2610 460 / 460 Output Total 700 / 2300 1550 / 1550 Balance -580 / 310 -1090 / -1090 Weight last 48 hrs Weight 91.762 kg Weight 91.172 kg Weight 91.354 kg Physical Exam 2 Const: COMMON NORMALS: no acute distress and patient oriented x3 Resp: COMMON NORMALS: normal respiratory effort, No retractions and No use of accessory muscles AUSCULTATION: crackles Cardio: COMMON NORMALS: regular rate, regular rhythm, S1 normal heart sound present and S2 normal heart sound present RATE: regular rate RHYTHM: r egular rhythm HEART SOUNDS: S1 normal heart sound present and S2 normal heart sound present GI: COMMON NORMALS: Normal to inspection, nondistended, normoactive bowel sounds present and non-tender Extremity: COMMON NORMALS: no pedal edema Neuro: COMMON NORMALS: patient oriented x3 Psych: COMMON NORMALS: mental status grossly normal Urinary Catheter Management: Conteh: Cath Placed During This Visit: yes Reason for Continuing Indwelling Catheter: Acute Urinary Retention or Obstruction Urinary Catheter Date of Insertion: 09/29/24 Urinary Catheter Time of Insertion: 03:42 Data 09/30/24 13:12 09/30/24 05:58 A&P Assessment and plan (1) HTN (hypertension): (2) Systolic CHF: (3) Exertional dyspnea: (4) Ventral incisional hernia: (5) Acute hyperkalemia: (6) Anemia: (7) Anemia due to chronic kidney disease: (8) Shortness of breath: Plan Acute systolic CHF exacerbation bilateral pleural effusion Thoracentesis, 900 cc removed from the left, transudative pleural effusion Lasix 40 IV twice daily, urine output 2850 MAYTE on CKD -History of CKD requiring dialysis, dialysis catheter was removed September 10, 2023 -Creatinine 5.1 -Monitor urine output, monitor creatinine -Nephrology consulted Anemia, currently hemoglobin stable at 8.4 History of FOBT positive -Will repeat FOBT, iron studies show evidence of early iron deficiency anemia Status post 2 units PRBC Protonix, Carafate No significant hemodynamic instability Will consider EGD and colonoscopy based on clinical progress Hyperkalemia with MAYTE Monitor A-fib without RVR Off anticoagulating agent Continue amiodarone DNR/DNI as per the nursing record Cardiac diet DVT prophylaxis: SCDs Plan for today continue IV diuresis, monitor BMP, monitor hemoglobin PDMP PDMP Reviewed: Not Reviewed Attestations 2 Medical Necessity Statement*: Patient requires hospitalization for acute systolic CHF exacerbation, required IV diuresis, acute anemia Diagnoses HTN (hypertension) I10 Systolic CHF I50.20 Exertional dyspnea R06.09 Ventral incisional hernia K43.2 Acute hyperkalemia E87.5 Anemia D64.9 Anemia due to chronic kidney disease N18.9; D63.1 Shortness of breath R06.02
[2024-09-30] MEDS: oxyCODONE 5 mg IR Tab/Cap PO (21:07)
[2024-10-01] VITALS (7 sets, daily range): BP systolic 128–148; BP diastolic 54–83; PULSE 64–87; RESP 16–18; TEMP 36.5–36.9; O2SAT 92–99
[2024-10-01] MEDS: sucralfate 1 gm/10 mL Oral Liq UDC PO ×5 (00:03→23:02)
[2024-10-01] MEDS: dilTIAZem ER (24HR) 240 mg Capsule PO (02:26)
[2024-10-01 05:22] LABS: Basophils % 0.1 %; Eosinophils # 0.3 10^3/uL (0.0-0.8); Eosinophils % 2.2 %; Hematocrit 26.8 % (37-53); Lymphocytes # 1.4 10^3/uL (0.8-4.8); Lymphocytes % 11.8 %; Mean Corpuscular HGB Conc 31.3 g/dL (30-55); Mean Corpuscular Hemoglobin 29.7 pg (27-33); Mean Corpuscular Volume 94.7 fl (82-101); Mean Platelet Volume 8.8 fL (7.4-10.4); Monocytes # 1.1 10^3/uL (0.2-0.9); Monocytes % 8.6 %; Neutrophils # 9.41 10^3/uL (1.8-7.7); Neutrophils % 76.7 %; Nucleated Red Blood Cells % 0 %; Platelet Count 600 10^3/cmm (157-399); Red Blood Count 2.83 10^6/uL (3.85-5.65); Red Cell Distribution Width 15.1 % (12.1-15.1); White Blood Count 12.25 10^3/uL (3.29-11.43)
[2024-10-01 05:45] LABS: Alanine Aminotransferase 6 U/L (0-41); Albumin Level 3.8 g/dL (3.5-5.2); Alkaline Phosphatase 115 U/L (40-130); Anion Gap 19.5 (5-19); Aspartate Amino Transferase 5 U/L (0-40); Blood Urea Nitrogen 64 mg/dL (8-23); C Reactive Protein 16.7 mg/L (0.0-4.9); Calcium 9.1 mg/dL (8.5-10.5); Carbon Dioxide 18 mmol/L (22-29); Chloride 103 mmol/L (98-107); Creatinine Clr Calc Pharmacy 12.8581; Globulin 2.5 g/dL (1.3-4.6); Glucose 109 mg/dL (65-115); Osmolality Calculated 301 mOsm/kg (285-295); Potassium 4.5 mmol/L (3.5-5.1); Sodium 136 mmol/L (136-145); Total Bilirubin 0.3 mg/dL (0.15-1.2); Total Protein 6.3 g/dL (6.6-8.7)
[2024-10-01 05:55] LABS: NT Pro B Type Natriuretic Pept 11873 pg/mL (0-450)
--- NOTE | 2024-10-01 08:19 | XR_ITS ---
WS: [id number] XR chest 1V portable [id number] REASON FOR EXAM: sob FINDINGS: Significant cardiomegaly. Significant central pulmonary venous congestion. Bilateral lower lobe presumed atelectasis with bilateral pleural effusions. There does not appear to be significant interval change compared to the previous examination 2:47 p.m. 09/29/2024, however there does appear to be decreased pleural fluid compared to the examination earlier in the day 09/29/2024. XR/XR chest 1V portable [id number] IMPRESSION: Cardiomegaly, bilateral basilar atelectasis and pleural effusions stable compar ed to the most recent examination.
[2024-10-01 08:50] LABS: Procalcitonin 0.19 ng/mL (0-0.5)
[2024-10-01] MEDS: pantoprazole 40 mg SDV IVP ×2 (09:51→18:23)
[2024-10-01] MEDS: sodium bicarbonate 650 mg Tablet PO ×2 (09:51→18:23)
[2024-10-01] MEDS: amiodarone 200 mg Tablet PO ×2 (09:51→18:23)
[2024-10-01] MEDS: FUROsemide 10 mg/mL SDV 10mL 40 MG IVP ×2 (09:51→23:02)
[2024-10-01] MEDS: sennosides-docusate Tablet 1 TAB PO (09:52)
[2024-10-01 11:13] LABS: Influenza A NEGATIVE (Negative); Influenza B NEGATIVE (Negative); Respiratory Syncytial Virus Ce NEGATIVE (Negative); SARS-CoV-2 PCR NEGATIVE (Negative)
--- NOTE | 2024-10-01 14:14 | P.PN_ITS ---
Subjective 2 Subjective: Patient has no complaints on room air Medications: Reviewed: Yes Vitals/I&O/Wt Last Vital Signs Temp 97.9 F 10/01/24 11:11 Pulse 79 10/01/24 11:11 Resp 16 10/01/24 11:11 BP 130/79 10/01/24 11:11 Pulse Ox 97 10/01/24 11:11 O2 Del Method Room Air 10/01/24 11:11 O2 Flow Rate 1 09/30/24 03:29 09/30/24 10/01/24 10/01/24 22:59 06:59 14:59 Intake Total 360 / 820 540 / 540 Output Total 1500 / 3050 1400 / 4450 550 / 550 Balance -1140 / -2230 -1400 / -3630 -10 / -10 Weight last 48 hrs Weight 91.036 kg Weight 91.762 kg Physical Exam 2 Const: COMMON NORMALS: no acute distress, average body habitus, patient oriented x3 and no limitations HENMT: COMMON NORMALS: normocephalic and atraumatic HEAD & SCALP: n ormocephalic and atraumatic Eye: COMMON NORMALS: EOMs intact bilaterally and no scleral icterus Neck/C-Spine: COMMON NORMALS: full ROM and no JVD Resp: COMMON NORMALS: normal respiratory effort AUSCULTATION: wheezes expiratory wheezes and throughout Cardio: COMMON NORMALS: no JVD, regular rate, regular rhythm, S1 normal heart sound present and S2 normal heart sound present RATE: regular rate RHYTHM: regular rhythm HEART SOUNDS: S1 normal heart sound present and S2 normal heart sound present GI: COMMON NORMALS: Soft to palpation and non-tender PALPATION: Yes Soft to palpation Extremity: COMMON NORMALS: full ROM NARRATIVE EXTREMITY EXAM: +1 BLE edema Neuro: COMMON NORMALS: patient oriented x3, moves all extremities and no focal motor deficits Psych: COMMON NORMALS: mental status grossly normal and Normal thought process present THOUGHT PROCESS: Normal thought process present Skin: COMMON NORMALS: no rashes or lesions noted GENERAL SKIN EXAM: no rashes or lesions noted Urinary Catheter Management: Conteh: Cath Placed During This Visit: yes Reason for Continuing Indwelling Catheter: Other Urinary Catheter Date of Insertion: 09/29/24 Urinary Catheter Time of Insertion: 03:42 Data 10/01/24 05:04 10/01/24 05:04 A&P Assessment and plan (1) Acute kidney injury superimposed on stage 4 chronic kidney disease: MAYTE superimposed on ckd stage 4- He has ckd stage 4 at baseline likely due to diabetic and hypertensive kidney disease. His mayte is likely due to cardio-renal syndrome and atn secondary to severe anemia. His creatinine remains stable. He also non-oliguric with stable lytes. There is no acute indication for renal replacement therapy at this time. - cont iv lasix acute on chronic systolic chf ef 30%- improved. cont iv lasix. cont 1200 ml fluid restriction hyperkalemia- cont iv lasix as above. anemia- ? due to gi losses. He is iron deficient. cont iv iron. his hgb is stable s/p transfusions bilateral pleural effusions- he is s/p thoracentesis PDMP PDMP Reviewed: Not Reviewed Attestations 2 Medical Necessity Statement*: mayte Time Spent in Patient Care: 25 minutes Coding Level of Care Code Acute Code for Chg Fwd Diagnoses Acute kidney injury superimposed on stage 4 chronic kidney disease N17.9; N18.4
[2024-10-01 14:26] LABS: Bilirubin Urine Negative (Negative); Blood Urine Negative (Negative); Glucose Urine UA Trace (Normal); Ketones Urine Negative (Negative); Leukocyte Esterase Urine Negative (Negative); Nitrate Urine Negative (Negative); Protein Urine 1+ (Negative); Urine Appearance Clear (CLEAR); Urine Color Yellow (Yellow); Urobilinogen Urine 0.2 mg/dL (Negative)
[2024-10-01 14:33] LABS: Add Urine Microscopic? YES; Bacteria Urine None Seen /hpf; Hyaline Casts Urine 1.65 /lpf; RBC Urine 0-2 /hpf (0-2); Squamous Epithelial Cell Urine 0-5 /hpf (0-5); WBC Urine 0-5 /hpf (0-5)
--- NOTE | 2024-10-01 14:52 | P.PN_ITS ---
Subjective 2 Subjective: Patient was seen this morning, he is alert to person, to place, not to time follows all commands, shortness of breath is improving, edema is improving Vitals/I&O/Wt Last Vital Signs Temp 97.9 F 10/01/24 11:11 Pulse 79 10/01/24 11:11 Resp 16 10/01/24 11:11 BP 130/79 10/01/24 11:11 Pulse Ox 97 10/01/24 11:11 O2 Del Method Room Air 10/01/24 11:11 O2 Flow Rate 1 09/30/24 03:29 09/30/24 10/01/24 10/01/24 22:59 06:59 14:59 Intake Total 360 / 820 540 / 540 Output Total 1500 / 3050 1400 / 4450 550 / 550 Balance -1140 / -2230 -1400 / -3630 -10 / -10 Weight last 48 hrs Weight 91.036 kg Weight 91.762 kg Physical Exam 2 Const: COMMON NORMALS: no acute distress and patient oriented x3 Resp: COMMON NORMALS: normal respiratory effort, No retractions, No use of accessory muscles and clear to auscultation bilaterally AUSCULTATION: clear to auscultation bilaterally Cardio: COMMON NORMALS: regular rate, regular rhythm, S1 normal heart sound present and S2 normal heart sound present RATE: regular rate RHYTHM: r egular rhythm HEART SOUNDS: S1 normal heart sound present and S2 normal heart sound present GI: COMMON NORMALS: Normal to inspection, nondistended, normoactive bowel sounds present and non-tender Extremity: COMMON NORMALS: no pedal edema Neuro: COMMON NORMALS: patient oriented x3 Psych: COMMON NORMALS: mental status grossly normal Urinary Catheter Management: Conteh: Cath Placed During This Visit: yes Reason for Continuing Indwelling Catheter: Other Urinary Catheter Date of Insertion: 09/29/24 Urinary Catheter Time of Insertion: 03:42 Data 10/01/24 05:04 10/01/24 05:04 A&P Assessment and plan (1) HTN (hypertension): (2) Systolic CHF: (3) Exertional dyspnea: (4) Ventral incisional hernia: (5) Acute hyperkalemia: (6) Anemia: (7) Anemia due to chronic kidney disease: (8) Shortness of breath: Plan Acute systolic CHF exacerbation bilateral pleural effusion Thoracentesis, 900 cc removed from the left, transudative pleural effusion Lasix 40 IV twice daily, urine output 2850 MAYTE on CKD -History of CKD requiring dialysis, dialysis catheter was removed September 10, 2023 -Creatinine 5.1 -Monitor urine output, monitor creatinine -Nephrology consulted Anemia, currently hemoglobin stable at 8.4 History of FOBT positive -Will repeat FOBT, iron studies show evidence of early iron deficiency anemia Status post 2 units PRBC Protonix, Carafate No significant hemodynamic instability Will consider EGD and colonoscopy based on clinical progress Hyperkalemia with MAYTE Monitor A-fib without RVR Off anticoagulating agent Continue amiodarone DNR/DNI as per the nursing record Cardiac diet DVT prophylaxis: SCDs Plan for today continue IV diuresis, monitor BMP, monitor hemoglobin PDMP PDMP Reviewed: Not Reviewed Attestations 2 Medical Necessity Statement*: Patient requires hospitalization for acute systolic CHF exacerbation, MAYTE, anemia Diagnoses HTN (hypertension) I10 Systolic CHF I50.20 Exertional dyspnea R06.09 Ventral incisional hernia K43.2 Acute hyperkalemia E87.5 Anemia D64.9 Anemia due to chronic kidney disease N18.9; D63.1 Shortness of breath R06.02
--- NOTE | 2024-10-01 15:40 | PC.SOCIAL ---
IMM updated IMM dated and initialed, copy given to patient and copy placed in chart
[2024-10-01] MEDS: trazodone 50 mg Tablet PO (20:08)
[2024-10-01] MEDS: oxyCODONE 5 mg IR Tab/Cap PO (22:26)
[2024-10-02] VITALS (7 sets, daily range): BP systolic 122–146; BP diastolic 56–76; PULSE 68–96; RESP 15–17; TEMP 36.5–36.9; O2SAT 92–98; BMI 27.9
[2024-10-02] MEDS: dilTIAZem ER (24HR) 240 mg Capsule PO (03:22)
[2024-10-02 05:27] LABS: Basophils % 0.1 %; Eosinophils # 0.3 10^3/uL (0.0-0.8); Eosinophils % 2.7 %; Hematocrit 25.8 % (37-53); Lymphocytes # 1.5 10^3/uL (0.8-4.8); Lymphocytes % 15.1 %; Mean Corpuscular HGB Conc 30.6 g/dL (30-55); Mean Corpuscular Hemoglobin 29.9 pg (27-33); Mean Corpuscular Volume 97.7 fl (82-101); Neutrophils # 7.27 10^3/uL (1.8-7.7); Neutrophils % 71.4 %; Nucleated Red Blood Cells % 0 %; Platelet Count 487 10^3/cmm (157-399); Red Blood Count 2.64 10^6/uL (3.85-5.65); Red Cell Distribution Width 15.1 % (12.1-15.1); White Blood Count 10.19 10^3/uL (3.29-11.43)
[2024-10-02 05:56] LABS: Alanine Aminotransferase 6 U/L (0-41); Albumin Level 3.3 g/dL (3.5-5.2); Alkaline Phosphatase 99 U/L (40-130); Aspartate Amino Transferase 5 U/L (0-40); Blood Urea Nitrogen 62 mg/dL (8-23); C Reactive Protein 13.9 mg/L (0.0-4.9); Calcium 8.8 mg/dL (8.5-10.5); Carbon Dioxide 19 mmol/L (22-29); Chloride 103 mmol/L (98-107); Creatinine Clr Calc Pharmacy 13.0956; Glucose 91 mg/dL (65-115); Osmolality Calculated 299 mOsm/kg (285-295); Sodium 136 mmol/L (136-145); Total Bilirubin 0.2 mg/dL (0.15-1.2); Total Protein 5.3 g/dL (6.6-8.7)
[2024-10-02 06:06] LABS: NT Pro B Type Natriuretic Pept 10066 pg/mL (0-450)
[2024-10-02] MEDS: sucralfate 1 gm/10 mL Oral Liq UDC PO ×4 (06:28→23:01)
[2024-10-02] MEDS: sennosides-docusate Tablet 1 TAB PO (08:43)
[2024-10-02] MEDS: amiodarone 200 mg Tablet PO ×2 (08:43→17:17)
[2024-10-02] MEDS: pantoprazole 40 mg SDV IVP ×2 (08:43→17:17)
[2024-10-02] MEDS: sodium bicarbonate 650 mg Tablet PO ×2 (08:43→17:17)
[2024-10-02] MEDS: potassium chloride ER 20 mEq Tablet PO (08:51)
[2024-10-02] MEDS: FUROsemide 10 mg/mL SDV 4mL 40 MG IVP (08:51)
--- NOTE | 2024-10-02 09:29 | ECG_ITS ---
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 [email or web address]
[2024-10-02] MEDS: ALPRAZolam 0.5 mg Tablet 0.25 MG PO (11:16)
--- NOTE | 2024-10-02 11:44 | PM.CONSULT ---
Providers/Reason For Consult Consulting Physician/Specialty*: General Surgery Reason for Consult*: Possible GI bleeding Attending Physician: Felix Hernandez MD Primary Care Provider: Ramiro Villavicencio MD History of Present Illness History of Present Illness Jhon Marcos is a 79 year old male With chronic kidney disease who was admitted to the hospital with heart failure and anemia. Patient is currently asymptomatic but since his hemoglobin has been trending down I have been requested to evaluate the patient for possible upper endoscopy to rule out upper GI bleeding. Last colonoscopy was about 5 years ago and was negative for pathology other than some diverticulum. Last EGD showed evidence some gastritis. Denies blood in the stool denies pain in the abdomen, denies changes in bowel movements. Review of Systems General: Reports: 10 or more systems reviewed and unremarkable except in HPI and below Medications/Allergies Home Medications ?Medication ?Instructions ?Recorded ?Confirmed ?Last Taken ?Type nitroglycerin 0.4 mg sublingual 0.4 mg sublingual Q5M PRN Chest 11/22/19 09/29/24 03/21/23 History tablet (Nitrostat) Pain albuterol sulfate 90 mcg/actuation 1 inh inhalation QID PRN shortness 11/14/22 09/29/24 03/21/23 Rx aerosol inhaler (Ventolin HFA) of breath or wheezing #8.5 grams acyclovir 200 mg capsule 200 mg PO Q12H PRN outbreaks 03/28/23 09/29/24 Unknown History cyanocobalamin (vitamin B-12) 1,000 mcg SUBCUT Q1M 05/01/23 09/29/24 05/02/23 History 1,000 mcg/mL injection solution sodium phosphates 19 gram-7 118 ml IA DAILY PRN Constipation 05/01/23 09/29/24 Unknown History gram/118 mL enema (Fleet Enema) bisacodyl 10 mg rectal suppository 10 mg IA DAILY PRN Constipation 05/17/23 09/29/24 Unknown History acetaminophen 300 mg-codeine 30 mg 1 - 2 tab PO Q4H PRN Pain 07/12/24 09/29/24 Unknown History tablet acetaminophen 325 mg tablet 650 mg PO Q4H PRN Pain, Mild 07/12/24 09/29/24 Unknown History albuterol sulfate 2.5 mg/3 mL 2.5 mg inhalation Q4H PRN SOB 07/12/24 09/29/24 Unknown History (0.083 %) solution for nebulization artifi.tears(hypromellose)(PF) 1.7 1 drp ophthalmic (eye) BID PRN Dry 07/12/24 09/29/24 Unknown History % eye drops with applicator Eyes citalopram 20 mg tablet 20 mg PO DAILY 07/12/24 09/29/24 Unknown History docusate sodium 100 mg capsule 100 mg PO DAILY 07/12/24 09/29/24 Unknown History (Colace) ondansetron HCl 4 mg tablet 4 mg PO Q4H PRN Nausea And Vomiting 07/12/24 09/29/24 Unknown History trazodone 50 mg tablet 50 mg PO BEDTIME 07/12/24 09/29/24 Unknown History amiodarone 200 mg tablet (Pacerone) 200 mg PO BID #60 tabs 07/15/24 09/29/24 Unknown Rx diltiazem HCl 240 mg 240 mg PO Q24H #30 caps 07/15/24 09/29/24 Unknown Rx capsule,extended release 24 hr (Cardizem CD) pantoprazole 40 mg tablet,delayed 40 mg PO DAILY #60 tabs 07/15/24 09/29/24 05/29/23 Rx release sodium bicarbonate 650 mg tablet 650 mg PO BID 30 days #60 tabs 07/15/24 09/29/24 Unknown Rx furosemide 40 mg tablet (Lasix) 40 mg PO DAILY weight gain 30 days 10/01/24 09/29/24 Unknown Rx #30 tabs potassium chloride 10 mEq 10 meq PO DAILY 30 days #30 tabs 10/01/24 Unknown Rx tablet,extended release (Klor-Con) Allergies Allergy/AdvReac Type Severity Reaction Status Date / Time Penicillins Allergy Unknown Unknown Verified 09/29/24 00:49 Current Medications Generic Name Dose Route Start Last Admin Trade Name Freq PRN Reason Stop Dose Admin Alprazolam 0.25 mg 10/02/24 10:57 10/02/24 11:16 Alprazolam 0.5 Mg Tablet PO 0.25 mg BID PRN Administration ANXIETY Amiodarone HCl 200 mg 09/29/24 09:00 10/02/24 08:43 Amiodarone 200 Mg Tablet PO 200 mg BID JOSEPHINE Administration Diltiazem HCl 240 mg 09/29/24 03:01 10/02/24 03:22 Diltiazem Er (24hr) 240 Mg Capsule PO 240 mg Q24H JOSEPHINE Administration Oxycodone HCl 5 mg 09/29/24 03:11 10/01/24 22:26 Oxycodone 5 Mg Ir Tab/Cap PO 5 mg Q4H PRN Administration back pain Pantoprazole Sodium 40 mg 09/29/24 09:00 10/02/24 08:43 Pantoprazole 40 Mg Sdv IVP 40 mg BID JOSEPHINE Administration Senna/Docusate Sodium 1 tab 09/29/24 09:00 10/02/24 08:43 Sennosides-Docusate Tablet PO 1 tab DAILY JOSEPHINE Administration Sodium Bicarbonate 650 mg 09/29/24 09:00 10/02/24 08:43 Sodium Bicarbonate 650 Mg Tablet PO 650 mg BID JOSEPHINE Administration Sucralfate 1 gm 09/29/24 14:15 10/02/24 11:16 Sucralfate 1 Gm/10 Ml Oral Liq Udc PO 1 gm Q6H JOSEPHINE Administration Trazodone HCl 50 mg 09/30/24 00:01 10/01/24 20:08 Trazodone 50 Mg Tablet PO 50 mg BEDTIME PRN Administration SLEEP PFSH Acute PFSH: Medical History Systolic CHF Renal failure (ARF), acute on chronic AMS (altered mental status) Metabolic encephalopathy Expressive aphasia End stage renal disease Right leg DVT Iliac DVT (deep venous thrombosis) Pleural effusion, left CHRISTY (obstructive sleep apnea) Eosinophilic asthma History of stroke BPH (benign prostatic hyperplasia) Myocardial infarct ASHD (arteriosclerotic heart disease) Diabetes 1.5, managed as type 2 HTN (hypertension) Hyperlipidemia Surgical History History of knee replacement (~2014) History of shoulder replacement S/P shoulder replacement S/P knee replacement H/O esophagogastroduodenoscopy (09/26/20) History of colonoscopy (09/26/20) S/P PTCA (percutaneous transluminal coronary angioplasty) Family History Mother Dementia Denies family history of Family history of premature coronary artery disease Social History Smoking and tobacco/nicotine status: former use of tobacco/nicotine Quit status (tobacco/nicotine): has quit using Year quit tobacco: 1971 Former quit date comment: 2ppd x 10 years Alcohol intake: never Household members: spouse Marital status: service: No Current occupational status: retired Vitals/I&O/Wt Last Vital Signs Temp 97.8 F 10/02/24 08:00 Pulse 75 10/02/24 09:31 Resp 16 10/02/24 09:31 BP 130/69 10/02/24 08:00 Pulse Ox 96 10/02/24 09:31 O2 Del Method Room Air 10/02/24 09:31 O2 Flow Rate 1 09/30/24 03:29 10/01/24 10/02/24 10/02/24 22:59 06:59 14:59 Intake Total 299 / 839 360 / 1199 240 / 240 Output Total 500 / 1050 2500 / 3550 Balance -201 / -211 -2140 / -2351 240 / 240 Weight last 48 hrs Weight 200 lb 3.2 oz Weight 200 lb 11.2 oz Physical Exam GI: OTHER: Abdomen soft nontender nondistended. Urinary Catheter Management: Conteh: Cath Placed During This Visit: yes Reason for Continuing Indwelling Catheter: Acute Urinary Retention or Obstruction Urinary Catheter Date of Insertion: 09/29/24 Urinary Catheter Time of Insertion: 03:42 Data 10/02/24 05:00 10/02/24 05:00 Micro: Microbiology 09/29/24 14:30 Gram Stain - Final Pleural Fluid A&P Assessment and plan (1) Acute GI bleeding: Plan After complete history physical examination and review of all available clinical data the following is my assessment. While chronic disease and chronic kidney failure are most likely the main drivers of the patient low hemoglobin I think at this point it is appropriate to proceed with an upper endoscopy to rule out any other causes including GI bleeding as hemoglobin level has continued to trend down despite transfusion. I have discussed all recent benefits with the patient: The risk of perforation of the esophagus stomach or duodenum requiring surgical intervention transfer to higher level of care, need for additional operations, injury to soft tissue of the mouth and pharynx. Patient shows understanding agrees to proceed. Will plan for upper endoscopy with possible bleeding control tomorrow. Patient will be n.p.o. after midnight. PDMP PDMP Reviewed: Not Reviewed Coding Level of Care Code Acute Code for Chg Fwd Diagnoses Acute GI bleeding K92.2
--- NOTE | 2024-10-02 15:17 | P.PN_ITS ---
Subjective 2 Subjective: Patient was seen this morning, he is alert oriented x 3, following all commands, denies any bloody or black stools, his shortness of breath is improving we discussed his persistent anemia down to 7.9, discussed needing an EGD, discussed risk and benefits, he voiced understanding, all question answered, agreed to proceed, will consult general surgery Vitals/I&O/Wt Last Vital Signs Temp 98.0 F 10/02/24 12:00 Pulse 96 10/02/24 12:00 Resp 16 10/02/24 12:00 BP 128/76 10/02/24 12:00 Pulse Ox 98 10/02/24 12:00 O2 Del Method Room Air 10/02/24 12:00 O2 Flow Rate 1 09/30/24 03:29 10/02/24 10/02/24 10/02/24 06:59 14:59 22:59 Intake Total 360 / 1199 480 / 480 Output Total 2500 / 3550 Balance -2140 / -2351 480 / 480 Weight last 48 hrs Weight 90.809 kg Weight 91.036 kg Physical Exam 2 Const: COMMON NORMALS: no acute distress and patient oriented x3 Resp: COMMON NORMALS: normal respiratory effort, No retractions, No use of accessory muscles and clear to auscultation bilaterally AUSCULTATION: clear to auscultation bilaterally Cardio: COMMON NORMALS: regular rate, regular rhythm, S1 normal heart sound present and S2 normal heart sound present RATE: regular rate RHYTHM: r egular rhythm HEART SOUNDS: S1 normal heart sound present and S2 normal heart sound present GI: COMMON NORMALS: Normal to inspection, nondistended, normoactive bowel sounds present and non-tender Extremity: COMMON NORMALS: no pedal edema Neuro: COMMON NORMALS: patient oriented x3 Psych: COMMON NORMALS: mental status grossly normal Urinary Catheter Management: Conteh: Cath Placed During This Visit: yes Reason for Continuing Indwelling Catheter: Acute Urinary Retention or Obstruction Urinary Catheter Date of Insertion: 09/29/24 Urinary Catheter Time of Insertion: 03:42 Data 10/02/24 05:00 10/02/24 05:00 Micro: Microbiology 09/29/24 14:30 Gram Stain - Final Pleural Fluid Body Fluid Culture - Preliminary A&P Assessment and plan (1) HTN (hypertension): (2) Systolic CHF: (3) Exertional dyspnea: (4) Ventral incisional hernia: (5) Acute hyperkalemia: (6) Anemia: (7) Anemia due to chronic kidney disease: (8) Shortness of breath: Plan Acute systolic CHF exacerbation bilateral pleural effusion Thoracentesis, 900 cc removed from the left, transudative pleural effusion Lasix 40 IV twice daily, urine output 4.7 L MAYTE on CKD -History of CKD requiring dialysis, dialysis catheter was removed September 10, 2023 -Creatinine 5.1 -Monitor urine output, monitor creatinine -Nephrology consulted Anemia, currently hemoglobin stable at 9.9 History of FOBT positive -Will repeat FOBT, iron studies show evidence of early iron deficiency anemia Status post 2 units PRBC Protonix, Carafate No significant hemodynamic instability Recheck hemoglobin this afternoon, good general surgery consulted for EGD Hyperkalemia with MAYTE Monitor A-fib without RVR Off anticoagulating agent Continue amiodarone DNR/DNI as per the nursing record Cardiac diet DVT prophylaxis: SCDs Plan for today continue IV diuresis, monitor hemoglobin, general surgery consulted for EGD PDMP PDMP Reviewed: Not Reviewed Attestations 2 Medical Necessity Statement*: Patient requires hospitalization for acute anemia requiring EGD, fluid overload requiring IV diuresis Diagnoses HTN (hypertension) I10 Systolic CHF I50.20 Exertional dyspnea R06.09 Ventral incisional hernia K43.2 Acute hyperkalemia E87.5 Anemia D64.9 Anemia due to chronic kidney disease N18.9; D63.1 Shortness of breath R06.02
[2024-10-02 15:46] LABS: Basophils % 0.2 %; Eosinophils # 0.2 10^3/uL (0.0-0.8); Eosinophils % 1.7 %; Hematocrit 26.6 % (37-53); Lymphocytes # 1.4 10^3/uL (0.8-4.8); Lymphocytes % 11.2 %; Mean Corpuscular HGB Conc 30.8 g/dL (30-55); Mean Corpuscular Hemoglobin 29.6 pg (27-33); Mean Platelet Volume 8.7 fL (7.4-10.4); Monocytes # 1.1 10^3/uL (0.2-0.9); Monocytes % 9.2 %; Neutrophils # 9.26 10^3/uL (1.8-7.7); Neutrophils % 77.1 %; Nucleated Red Blood Cells % 0 %; Platelet Count 577 10^3/cmm (157-399); Red Blood Count 2.77 10^6/uL (3.85-5.65); White Blood Count 12.01 10^3/uL (3.29-11.43)
[2024-10-02] MEDS: trazodone 50 mg Tablet PO (20:17)
[2024-10-03] VITALS (11 sets, daily range): BP systolic 111–171; BP diastolic 62–86; PULSE 72–84; RESP 14–18; TEMP 36.1–36.9; O2SAT 94–100
[2024-10-03] MEDS: dilTIAZem ER (24HR) 240 mg Capsule PO (03:23)
[2024-10-03 04:23] LABS: Basophils % 0.2 %; Eosinophils # 0.3 10^3/uL (0.0-0.8); Eosinophils % 2.6 %; Hematocrit 26.1 % (37-53); Lymphocytes # 1.3 10^3/uL (0.8-4.8); Lymphocytes % 13.2 %; Mean Corpuscular Volume 96.7 fl (82-101); Mean Platelet Volume 9.2 fL (7.4-10.4); Monocytes % 9.8 %; Neutrophils % 73.4 %; Nucleated Red Blood Cells % 0 %; Platelet Count 433 10^3/cmm (157-399); Red Cell Distribution Width 14.8 % (12.1-15.1); White Blood Count 10.08 10^3/uL (3.29-11.43)
[2024-10-03 04:41] LABS: Alanine Aminotransferase < 5 U/L (0-41); Alkaline Phosphatase 97 U/L (40-130); Aspartate Amino Transferase 5 U/L (0-40); Blood Urea Nitrogen 59 mg/dL (8-23); Calcium 8.9 mg/dL (8.5-10.5); Carbon Dioxide 18 mmol/L (22-29); Chloride 102 mmol/L (98-107); Creatinine Clr Calc Pharmacy 12.3681; Glucose 102 mg/dL (65-115); Magnesium 1.9 mg/dL (1.7-2.3); Osmolality Calculated 297 mOsm/kg (285-295); Phosphorus 3.7 mg/dL (2.5-4.5); Sodium 135 mmol/L (136-145); Total Bilirubin 0.3 mg/dL (0.15-1.2)
[2024-10-03 04:47] LABS: NT Pro B Type Natriuretic Pept 10255 pg/mL (0-450)
[2024-10-03] MEDS: sucralfate 1 gm/10 mL Oral Liq UDC PO ×2 (05:27→12:11)
--- NOTE | 2024-10-03 07:47 | P.HPUD_ITS ---
Surgery/Procedure H&P Update DATE OF PROCEDURE: October 03, 2024 DATE H&P PERFORMED: 10/02/24 H&P UPDATE INFORMATION: I have reviewed H&P completed within last 30 days, I have examined patient prior to procedure, No changes to prior documentation and H&P is in [facility] [place] [facility] EMR on date indicated PLANNED PROCEDURE: Operation Date: 10/03/24 08:00 Proposed Procedures p Esophagoscopy(Not Applicable) - Brian Benson MD
--- NOTE | 2024-10-03 07:50 | PC.NURSE ---
PT OFF FLOOR TO GI LAB
--- NOTE | 2024-10-03 07:54 | ANES.PREANE2 ---
Pre-Anesthetic Assessment Height/Weight: Height 1.8 m Weight 90.174 kg Temp Pulse Resp BP Pulse Ox O2 Del Method O2 Flow Rate 98.1 F 84 18 154/86 94 Nasal Cannula 1 10/03/24 04:00 10/03/24 04:00 10/03/24 04:00 10/03/24 04:00 10/03/24 04:00 10/03/24 04:00 09/30/24 03:29 Operation Date: 10/03/24 08:00 Proposed Procedures p Esophagoscopy(Not Applicable) - Brian Benson MD Familial anesthetic complications: NOne Was Beta Georgette taken within 24 hours: N/A Was Clonidine taken within 24 hours: N/A Last intake: Intake Last Liquid Date 10/02/24 Last Solid Date 10/02/24 Social No alcohol and No tobacco Exam alert, oriented x 3, clear to auscultation bilaterally and regular rate & rhythm Airway Mallampati: Class III Dentition: partials Pulmonary pleural effusion CV/HEM Atrial Fibrillation, Anemia, Congestive Heart Failure and Myocardial Infarction Chronic Renal Insufficiency Metabolic Diabetes Mellitus and Hyperlipidemia Anesthetic Plan ASA status: 4 Anesthesia: MAC Risk of > 500 ml blood loss (7ml/kg in children): No Medications/Allergies Home Medications ?Medication ?Instructions ?Recorded ?Confirmed ?Last Taken ?Type nitroglycerin 0.4 mg sublingual 0.4 mg sublingual Q5M PRN Chest 11/22/19 09/29/24 03/21/23 History tablet (Nitrostat) Pain albuterol sulfate 90 mcg/actuation 1 inh inhalation QID PRN shortness 11/14/22 09/29/24 03/21/23 Rx aerosol inhaler (Ventolin HFA) of breath or wheezing #8.5 grams acyclovir 200 mg capsule 200 mg PO Q12H PRN outbreaks 03/28/23 09/29/24 Unknown History cyanocobalamin (vitamin B-12) 1,000 mcg SUBCUT Q1M 05/01/23 09/29/24 05/02/23 History 1,000 mcg/mL injection solution sodium phosphates 19 gram-7 118 ml RI DAILY PRN Constipation 05/01/23 09/29/24 Unknown History gram/118 mL enema (Fleet Enema) bisacodyl 10 mg rectal suppository 10 mg RI DAILY PRN Constipation 05/17/23 09/29/24 Unknown History acetaminophen 300 mg-codeine 30 mg 1 - 2 tab PO Q4H PRN Pain 07/12/24 09/29/24 Unknown History tablet acetaminophen 325 mg tablet 650 mg PO Q4H PRN Pain, Mild 07/12/24 09/29/24 Unknown History albuterol sulfate 2.5 mg/3 mL 2.5 mg inhalation Q4H PRN SOB 07/12/24 09/29/24 Unknown History (0.083 %) solution for nebulization artifi.tears(hypromellose)(PF) 1.7 1 drp ophthalmic (eye) BID PRN Dry 07/12/24 09/29/24 Unknown History % eye drops with applicator Eyes citalopram 20 mg tablet 20 mg PO DAILY 07/12/24 09/29/24 Unknown History docusate sodium 100 mg capsule 100 mg PO DAILY 07/12/24 09/29/24 Unknown History (Colace) ondansetron HCl 4 mg tablet 4 mg PO Q4H PRN Nausea And Vomiting 07/12/24 09/29/24 Unknown History trazodone 50 mg tablet 50 mg PO BEDTIME 07/12/24 09/29/24 Unknown History amiodarone 200 mg tablet (Pacerone) 200 mg PO BID #60 tabs 07/15/24 09/29/24 Unknown Rx diltiazem HCl 240 mg 240 mg PO Q24H #30 caps 07/15/24 09/29/24 Unknown Rx capsule,extended release 24 hr (Cardizem CD) pantoprazole 40 mg tablet,delayed 40 mg PO DAILY #60 tabs 07/15/24 09/29/24 05/29/23 Rx release sodium bicarbonate 650 mg tablet 650 mg PO BID 30 days #60 tabs 07/15/24 09/29/24 Unknown Rx furosemide 40 mg tablet (Lasix) 40 mg PO DAILY weight gain 30 days 10/01/24 09/29/24 Unknown Rx #30 tabs potassium chloride 10 mEq 10 meq PO DAILY 30 days #30 tabs 10/01/24 Unknown Rx tablet,extended release (Klor-Con) Allergies Allergy/AdvReac Type Severity Reaction Status Date / Time Penicillins Allergy Unknown Unknown Verified 09/29/24 00:49 Current Medications Generic Name Dose Route Start Last Admin Trade Name Freq PRN Reason Stop Dose Admin Alprazolam 0.25 mg 10/02/24 10:57 10/02/24 11:16 Alprazolam 0.5 Mg Tablet PO 0.25 mg BID PRN Administration ANXIETY Amiodarone HCl 200 mg 09/29/24 09:00 10/02/24 17:17 Amiodarone 200 Mg Tablet PO 200 mg BID JOSEPHINE Administration Diltiazem HCl 240 mg 09/29/24 03:01 10/03/24 03:23 Diltiazem Er (24hr) 240 Mg Capsule PO 240 mg Q24H JOSEPHINE Administration Oxycodone HCl 5 mg 09/29/24 03:11 10/01/24 22:26 Oxycodone 5 Mg Ir Tab/Cap PO 5 mg Q4H PRN Administration back pain Pantoprazole Sodium 40 mg 09/29/24 09:00 10/02/24 17:17 Pantoprazole 40 Mg Sdv IVP 40 mg BID JOSEPHINE Administration Senna/Docusate Sodium 1 tab 09/29/24 09:00 10/02/24 08:43 Sennosides-Docusate Tablet PO 1 tab DAILY JOSEPHINE Administration Sodium Bicarbonate 650 mg 09/29/24 09:00 10/02/24 17:17 Sodium Bicarbonate 650 Mg Tablet PO 650 mg BID JOSEPHINE Administration Sucralfate 1 gm 09/29/24 14:15 10/03/24 05:27 Sucralfate 1 Gm/10 Ml Oral Liq Udc PO 1 gm Q6H JOSEPHINE Administration Trazodone HCl 50 mg 09/30/24 00:01 10/02/24 20:17 Trazodone 50 Mg Tablet PO 50 mg BEDTIME PRN Administration [facility] Medical History Systolic CHF Renal failure (ARF), acute on chronic AMS (altered mental status) Metabolic encephalopathy Expressive aphasia End stage renal disease Right leg DVT Iliac DVT (deep venous thrombosis) Pleural effusion, left CHRISTY (obstructive sleep apnea) Eosinophilic asthma History of stroke BPH (benign prostatic hyperplasia) Myocardial infarct ASHD (arteriosclerotic heart disease) Diabetes 1.5, managed as type 2 HTN (hypertension) Hyperlipidemia Surgical History History of knee replacement (~2014) History of shoulder replacement S/P shoulder replacement S/P knee replacement H/O esophagogastroduodenoscopy (09/26/20) History of colonoscopy (09/26/20) S/P PTCA (percutaneous transluminal coronary angioplasty) Family History Mother Dementia Denies family history of Family history of premature coronary artery disease Social History Smoking and tobacco/nicotine status: former use of tobacco/nicotine Quit status (tobacco/nicotine): has quit using Year quit tobacco: 1971 Former quit date comment: 2ppd x 10 years Alcohol intake: never Household members: spouse Marital status: service: No Current occupational status: retired Data Anesthesia 10/03/24 03:07 10/03/24 03:07 Short CBC 10/02/24 10/02/24 10/03/24 Range/Units 05:00 15:32 03:07 WBC 10.19 12.01 H 10.08 (3.29-11.43) 10^3/uL Hgb 7.90 L 8.20 L 8.10 L (11.27-16.99) g/dL Hct 25.8 L 26.6 L 26.1 L (37-53) % MCV 97.7 96.0 96.7 (82-101) fl Plt Count 487 H 577 H 433 H (157-399) 10^3/cmm Neut % (Auto) 71.4 77.1 73.4 % Neut # (Auto) 7.27 9.26 H 7.40 (1.8-7.7) 10^3/uL BMP 10/02/24 10/03/24 05:00 03:07 Sodium 136 135 L Potassium 4.0 4.0 Chloride 103 102 Carbon Dioxide 19 L 18 L BUN 62 H 59 H Creatinine 5.1 H 5.4 H Glucose 91 102 Calcium 8.8 8.9 Cardiac Enzymes 10/02/24 10/03/24 Range/Units 05:00 03:07 NT-Pro-B Natriuret Pep 44400 H 23631 H (0-450) pg/mL Liver Function 10/02/24 10/03/24 Range/Units 05:00 03:07 Total Bilirubin 0.2 0.3 (0.15-1.2) mg/dL AST 5 5 (0-40) U/L ALT 6 < 5 (0-41) U/L Alkaline Phosphatase 99 97 (40-130) U/L Albumin 3.3 L 3.0 L (3.5-5.2) g/dL Urine 10/01/24 Range/Units 13:40 Urine Color Yellow (Yellow) Urine Appearance Clear (CLEAR) Urine pH 6.0 (5-7) Ur Specific [place] 1.010 (1.005-1.030) Urine Protein 1+ A (Negative) Urine Glucose (UA) Trace H (Normal) Urine Ketones Negative (Negative) Urine Nitrate Negative (Negative) Urine Bilirubin Negative (Negative) Ur Leukocyte Esterase Negative (Negative) Urine RBC 0-2 (0-2) /hpf Urine WBC 0-5 (0-5) /hpf COVID Results 10/01/24 08:27 SARS-CoV-2 (PCR) Negative Coags 10/02/24 05:00 C-Reactive Protein 13.9 H Microbiology 10/02/24 17:30 Occult Blood (FIT) - Final Stool Routine Collection 09/29/24 14:30 Gram Stain - Final Pleural Fluid Body Fluid Culture - Preliminary Cardiac Studies: Echocardiogram 07/12/24 Echocardiogram Ultrasound 07/04/20 Sestamibi Stress Test (Cardiology) 06/26/22
--- NOTE | 2024-10-03 09:18 | PM.MISC ---
Miscellaneous Note Purpose of Documentation: Update on patient care Note: EGD was done, no evidence of acute upper GI bleeding. Just mild gastritis. Patient can be started on once a day PPI and follow-up in my clinic in 2 weeks. At that time we will discuss the possibility of proceeding with a colonoscopy, although patient does not want to do any procedures unless there are completely required.
[2024-10-03] MEDS: sennosides-docusate Tablet 1 TAB PO (09:38)
[2024-10-03] MEDS: sodium bicarbonate 650 mg Tablet PO (09:38)
[2024-10-03] MEDS: pantoprazole 40 mg SDV IVP (09:38)
[2024-10-03] MEDS: amiodarone 200 mg Tablet PO (09:38)
[2024-10-03] MEDS: FUROsemide 10 mg/mL SDV 4mL 40 MG IVP (09:38)
--- NOTE | 2024-10-03 09:52 | PM.PN ---
Subjective Subjective: Patient has no complaints. Medications: Reviewed: Yes Vitals/I&O/Wt Last Vital Signs Temp 97.7 F 10/03/24 09:15 Pulse 80 10/03/24 09:26 Resp 16 10/03/24 09:26 BP 142/70 10/03/24 09:15 Pulse Ox 100 10/03/24 09:26 O2 Del Method Room Air 10/03/24 09:26 O2 Flow Rate 1 09/30/24 03:29 10/02/24 10/03/24 10/03/24 22:59 07:59 14:59 Intake Total 720 / 1200 Output Total 1300 / 1300 1450 / 2750 Balance -580 / -100 -1450 / -1550 Weight last 48 hrs Weight 90.174 kg Weight 90.809 kg Physical Exam Urinary Catheter Management: Conteh: Cath Placed During This Visit: yes Reason for Continuing Indwelling Catheter: Acute Urinary Retention or Obstruction Urinary Catheter Date of Insertion: 09/29/24 Urinary Catheter Time of Insertion: 03:42 Data 10/03/24 03:07 10/03/24 03:07 Micro: Microbiology 10/02/24 17:30 Occult Blood (FIT) - Final Stool Routine Collection 09/29/24 14:30 Gram Stain - Final Pleural Fluid Body Fluid Culture - Preliminary A&P Assessment and plan (1) Acute kidney injury superimposed on stage 4 chronic kidney disease: MAYTE superimposed on ckd stage 4- He has ckd stage 4 at baseline likely due to diabetic and hypertensive kidney disease. His mayte is likely due to cardio-renal syndrome and atn secondary to severe anemia. His creatinine remains essentially stable. He also non-oliguric with stable lytes. There is no acute indication for renal replacement therapy at this time. - he will need outpatient follow-up with a rehabilitation construction specialist acute on chronic systolic chf ef 30%- improved with iv lasix. cont 1200 ml fluid restriction hyperkalemia- improved with iv lasix as above. anemia- ? due to gi losses. He is iron deficient. on iv iron. his hgb is stable s/p transfusions bilateral pleural effusions- he is s/p thoracentesis PDMP PDMP Reviewed: Not Reviewed Attestations Medical Necessity Statement*: mayte Time Spent in Patient Care: 15 minutes Coding Level of Care Code Acute Code for [facility] Fwd Diagnoses Acute kidney injury superimposed on stage 4 chronic kidney disease N17.9; N18.4
--- NOTE | 2024-10-03 10:34 | PC.NURSE ---
Sets up communication with Bri from [facility]. Bri is speaking with their case management on transferring back without authorization.
--- NOTE | 2024-10-03 10:38 | PM.DCS ---
Discharge Providers Date of Admission: 09/29/24 02:37 Date of Discharge: October 03, 2024 Attending Provider at Admission: Olive Tracey MD Attending Provider at Discharge: Felix Hernandez MD Primary Care Provider: Ramiro Villavicencio MD Diagnoses at Discharge Discharge Diagnosis (1) Acute kidney injury superimposed on stage 4 chronic kidney disease: Status: Acute Reason for Visit Reason for Visit: abdomen pain Hospital Course Hospital Course This is a 79-year-old male with a past medical history of of CKD, history of dialysis, permacath removed, anemia, CHF, atrial fibrillation anticoagulation due to anemia BPH, cardiomyopathy EF 40% who presents to [facility] for shortness of breath Patient presented to [facility] for acute systolic CHF exacerbation, bilateral pleural effusions, received IV diuresis, overall clinically improved, shortness of breath improved, on room air, diuresed over 6.8 L net negative. Patient will be discharged with Lasix, potassium, with close follow-up with primary care provider as outpatient. Follow-up with cardiology as outpatient For his left pleural effusion he is status post left thoracentesis, 900 cc removed, transudative pleural effusion For acute on chronic anemia, history of FOBT positive stools, evidence of early iron deficiency anemia, status post units PRBC, no reported bloody black stools, no significant hemodynamic compromise, managed initially medically on Protonix and Carafate. Due to persistent anemia, general surgery was consulted, underwent EGD which had findings of gastritis. Patient will be discharged with Protonix, Carafate with follow-up with general surgery as outpatient for consideration of colonoscopy in 2 weeks. Repeat CBC in 24 hours. Patient was advised if he does develop any bloody or black stools to be to go to emergency room. For his MAYTE on CKD, he has a history of CKD requiring dialysis, eventually his kidney function improved, urine output improved and thus dialysis catheter was removed September 10 2023. During his inpatient stay he developed MAYTE with IV diuresis, nephrology was consulted, his electrolytes have been relatively stable, does have persistent metabolic acidosis for which she is on sodium bicarb tablets. Nonetheless his creatinine on discharge is 5.4, discharge with a repeat BMP in 24 hours, follow-up with nephrology in [place] in 2 to 4 weeks. On discharge, I had a detailed discussion with patient about his chronic kidney disease, with IV diuresis we will have to watch his kidney function closely, he does have a high risk of requiring dialysis in the near future. Patient voiced understanding, all questions answered Physical Exam Const: COMMON NORMALS: no acute distress ORIENTATION/CONSCIOUSNESS: Yes awake, Yes oriented to person and Yes oriented to place Resp: COMMON NORMALS: normal respiratory effort, No retractions and No use of accessory muscles Cardio: COMMON NORMALS: regular rate, regular rhythm, S1 normal heart sound present and S2 normal heart sound present RATE: regular rate RHYTHM: regular rhythm HEART SOUNDS: S1 normal heart sound present and S2 normal heart sound present GI: COMMON NORMALS: Normal to inspection, nondistended, normoactive bowel sounds present and non-tender Extremity: COMMON NORMALS: no pedal edema Neuro: SENSORIUM/ORIENTATION: Yes oriented to person and Yes oriented to place Psych: COMMON NORMALS: mental status grossly normal Urinary Catheter Management: Conteh: Cath Placed During This Visit: yes Reason for Continuing Indwelling Catheter: Acute Urinary Retention or Obstruction Urinary Catheter Date of Insertion: 09/29/24 Urinary Catheter Time of Insertion: 03:42 Discharge Data Studies Completed and Pending Completed Studies During Hospitalization Category Date Time Status XR chest 1V portable [id number] Routine Exams 10/01/24 08:19 Completed XR chest 1V portable [id number] Stat Exams 09/29/24 01:01 Completed XR chest 1V portable [id number] Stat Exams 09/29/24 14:39 Completed US thoracentesis [id number] Routine Ultrasound 09/29/24 03:10 Completed Pending at discharge Category Date Time Status Body Fluid Culture & GS Routine Lab 10/01/24 08:17 Results Complete Blood Count w/Auto AM LABS Lab 10/04/24 04:00 Ordered Complete Blood Count w/Auto AM LABS Lab 10/05/24 04:00 Ordered Comprehensive Metabolic Panel AM LABS Lab 10/04/24 04:00 Ordered Comprehensive Metabolic Panel AM LABS Lab 10/05/24 04:00 Ordered Magnesium AM LABS Lab 10/04/24 04:00 Ordered Magnesium AM LABS Lab 10/05/24 04:00 Ordered NT Pro B Type Natriuretic Pept QAM Lab 10/04/24 06:00 Ordered NT Pro B Type Natriuretic Pept QAM Lab 10/05/24 06:00 Ordered Phosphorus AM LABS Lab 10/04/24 04:00 Ordered Phosphorus AM LABS Lab 10/05/24 04:00 Ordered Cytology [PTH] Routine Pth 10/01/24 08:17 Ordered Pathology: Surgical [PTH] Routine Pth 10/03/24 08:05 Ordered Radiology Impressions Thoracentesis Ultrasound 09/29/24 03:10 IMPRESSION: 1. Uncomplicated ultrasound-guided LEFT thoracentesis with removal of 900 cc. 2. No pneumothorax Chest X-Ray 10/01/24 08:19 IMPRESSION: Cardiomegaly, bilateral basilar atelectasis and pleural effusions stable compared to the most recent examination. Laboratory Results WBC 10.08 10^3/uL (3.29-11.43) 10/03/24 03:07 Corrected WBC Cancelled 09/30/24 05:58 RBC 2.70 10^6/uL (3.85-5.65) L 10/03/24 03:07 Hgb 8.10 g/dL (11.27-16.99) L 10/03/24 03:07 Hct 26.1 % (37-53) L 10/03/24 03:07 MCV 96.7 fl (82-101) 10/03/24 03:07 MCH 30.0 pg (27-33) 10/03/24 03:07 MCHC 31.0 g/dL (30-55) 10/03/24 03:07 RDW 14.8 % (12.1-15.1) 10/03/24 03:07 Plt Count 433 10^3/cmm (157-399) H 10/03/24 03:07 MPV 9.2 fL (7.4-10.4) 10/03/24 03:07 Gran % Cancelled 09/30/24 05:58 Neut % (Auto) 73.4 % 10/03/24 03:07 Lymph % (Auto) 13.2 % 10/03/24 03:07 [place] % (Auto) 9.8 % 10/03/24 03:07 Eos % (Auto) 2.6 % 10/03/24 03:07 Baso % (Auto) 0.2 % 10/03/24 03:07 Neut # (Auto) 7.40 10^3/uL (1.8-7.7) 10/03/24 03:07 Lymph # (Auto) 1.3 10^3/uL (0.8-4.8) 10/03/24 03:07 [place] # (Auto) 1.0 10^3/uL (0.2-0.9) H 10/03/24 03:07 Eos # (Auto) 0.3 10^3/uL (0.0-0.8) 10/03/24 03:07 Baso # (Auto) 0.0 10^3/uL (0.0-0.1) 10/03/24 03:07 Absolute Gran (auto) Cancelled 09/30/24 05:58 Nucleated RBC % (auto) 0 % 10/03/24 03:07 Total Counted Not Reportable 09/29/24 14:30 Nucleated RBCs # 0.0 /100WBC 10/03/24 03:07 PT 12.60 SECONDS (12.1-14.9) 09/29/24 13:27 INR 0.88 (0.8-1.2) 09/29/24 13:27 Sodium 135 mmol/L (136-145) L 10/03/24 03:07 Potassium 4.0 mmol/L (3.5-5.1) 10/03/24 03:07 Chloride 102 mmol/L (98-107) 10/03/24 03:07 Carbon Dioxide 18 mmol/L (22-29) L 10/03/24 03:07 Anion Gap 19.0 (5-19) 10/03/24 03:07 BUN 59 mg/dL (8-23) H 10/03/24 03:07 Creatinine 5.4 mg/dL (0.7-1.2) H 10/03/24 03:07 GFR Calculation Not Reportable 10/03/24 03:07 Glucose 102 mg/dL (65-115) 10/03/24 03:07 Calculated Osmolality 297 mOsm/kg (285-295) H 10/03/24 03:07 Calcium 8.9 mg/dL (8.5-10.5) 10/03/24 03:07 Phosphorus 3.7 mg/dL (2.5-4.5) 10/03/24 03:07 Magnesium 1.9 mg/dL (1.7-2.3) 10/03/24 03:07 Iron 17 ug/dL (59-158) L 09/28/24 01:20 Ferritin 168 ng/mL (30-400) 09/28/24 01:20 Total Bilirubin 0.3 mg/dL (0.15-1.2) 10/03/24 03:07 AST 5 U/L (0-40) 10/03/24 03:07 ALT < 5 U/L (0-41) 10/03/24 03:07 Alkaline Phosphatase 97 U/L (40-130) 10/03/24 03:07 Lactate Dehydrogenase 179 U/L (135-225) 09/30/24 05:58 C-Reactive Protein 13.9 mg/L (0.0-4.9) H 10/02/24 05:00 NT-Pro-B Natriuret Pep 65810 pg/mL (0-450) H 10/03/24 03:07 Total Protein 6.0 g/dL (6.6-8.7) L 10/03/24 03:07 Albumin 3.0 g/dL (3.5-5.2) L 10/03/24 03:07 Globulin 3.0 g/dL (1.3-4.6) 10/03/24 03:07 Lipase 31 U/L (13-60) 09/29/24 01:20 Procalcitonin 0.19 ng/mL (0-0.5) 10/01/24 05:04 Urine Color Yellow (Yellow) 10/01/24 13:40 Urine Appearance Clear (CLEAR) 10/01/24 13:40 Urine pH 6.0 (5-7) 10/01/24 13:40 Ur Specific [place] 1.010 (1.005-1.030) 10/01/24 13:40 Urine Protein 1+ (Negative) A 10/01/24 13:40 Urine Glucose (UA) Trace (Normal) H 10/01/24 13:40 Urine Ketones Negative (Negative) 10/01/24 13:40 Urine Blood Negative (Negative) 10/01/24 13:40 Urine Nitrate Negative (Negative) 10/01/24 13:40 Urine Bilirubin Negative (Negative) 10/01/24 13:40 Urine Urobilinogen 0.2 mg/dL (Negative) 10/01/24 13:40 Ur Leukocyte Esterase Negative (Negative) 10/01/24 13:40 Urine RBC 0-2 /hpf (0-2) 10/01/24 13:40 Urine WBC 0-5 /hpf (0-5) 10/01/24 13:40 Ur Squamous Epith Cells 0-5 /hpf (0-5) 10/01/24 13:40 Amorphous Sediment Not Reportable 10/01/24 13:40 Urine Bacteria None seen /hpf (NONE) 10/01/24 13:40 Hyaline Casts 1.65 /lpf 10/01/24 13:40 Ur Random Sodium 79 mmol/L 09/30/24 00:08 Urine Creatinine 25 mg/dL (39-259) L 09/30/24 00:08 Fld Crystal Laterality Left plueral fl 09/29/24 14:30 Pleural Color Yellow (Pale Yellow) H 09/29/24 14:30 Pleural Appearance Cloudy (CLEAR) 09/29/24 14:30 Pleural pH 6.50 (6.5-7.5) 09/29/24 14:30 Pleural WBC 364.000 /uL (0-1000) 09/29/24 14:30 Pleural RBC 0.000 10^3/uL 09/29/24 14:30 Pleural Mononuc # Auto 0.258 10^3/uL 09/29/24 14:30 Pleural Other Cells Not Reportable 09/29/24 14:30 Pleural Polynuclear % 29 % 09/29/24 14:30 Pleural Polynuclear # 0.106 10^3/uL 09/29/24 14:30 Pleural Mononuclear % 71 % 09/29/24 14:30 Pleural Other Cells Lt Left lung 09/29/24 14:30 Pleural Total Protein 3.0 g/dL 09/29/24 14:30 Pleural LDH 82 U/L 09/29/24 14:30 Pleural Glucose 144.0 mg/dL 09/29/24 14:30 Influenza A (PCR) Negative (Negative) 10/01/24 08:27 Influenza Type B (PCR) Negative (Negative) 10/01/24 08:27 RSV (PCR) Negative (Negative) 10/01/24 08:27 SARS-CoV-2 (PCR) Negative (Negative) 10/01/24 08:27 Path Cons w/Slide Yes 09/29/24 14:30 Pathology Message Yes 09/29/24 14:30 Blood Type O Positive 09/29/24 02:20 Rho(D) Type Rh positive 09/29/24 02:20 Antibody Screen Negative 09/29/24 02:20 Crossmatch See Detail 09/29/24 02:20 Vitals Last Vital Signs Temp 97.7 F 10/03/24 09:15 Pulse 80 10/03/24 09:26 Resp 16 10/03/24 09:26 BP 142/70 10/03/24 09:15 Pulse Ox 100 10/03/24 09:26 O2 Del Method Room Air 10/03/24 09:26 O2 Flow Rate 1 09/30/24 03:29 Discharge Plan Discharge Patient Disposition: Home Condition: Stable Prescriptions: New potassium chloride [Klor-Con 10] 10 mEq tablet extended release 10 meq PO DAILY 30 Days Qty: 30 0RF sucralfate [Carafate] 1 gram tablet 1 g PO BID 28 Days Qty: 56 0RF Continued nitroglycerin [Nitrostat] 0.4 mg tablet, sublingual 0.4 mg SUBLINGUAL Q5M PRN (Reason: Chest Pain) albuterol sulfate [Ventolin HFA] 90 mcg/actuation HFA aerosol inhaler 1 inh inhalation QID PRN (Reason: shortness of breath or wheezing) Qty: 8.5 3RF bisacodyl 10 mg Suppository 10 mg MO DAILY PRN (Reason: Constipation) acyclovir 200 mg capsule 200 mg PO Q12H PRN (Reason: outbreaks) Fleet Enema 19-7 gram/118 mL Enema 118 ml MO DAILY PRN (Reason: Constipation) cyanocobalamin (vitamin B-12) 1,000 mcg/mL Solution 1,000 mcg SUBCUT Q1M Rx Instructions: STARTING ON AND ENDING ON THE EVERY MONTH albuterol sulfate 2.5 mg /3 mL (0.083 %) solution for nebulization 2.5 mg inhalation Q4H PRN (Reason: SOB) trazodone 50 mg tablet 50 mg PO BEDTIME artifi.tears(hypromellose)(PF) 1.7 % Drops With Applicator 1 drp OPHTHALMIC (EYE) BID PRN (Reason: Dry Eyes) acetaminophen 325 mg Tablet 650 mg PO Q4H PRN (Reason: Pain, Mild) ondansetron HCl 4 mg tablet 4 mg PO Q4H PRN (Reason: Nausea And Vomiting) acetaminophen-codeine 300-30 mg tablet 1 - 2 tab PO Q4H PRN (Reason: Pain) docusate sodium [Colace] 100 mg Capsule 100 mg PO DAILY citalopram 20 mg tablet 20 mg PO DAILY amiodarone [Pacerone] 200 mg Tablet 200 mg PO BID Qty: 60 0RF Rx Instructions: 200 mg BID twice day for 1 week, f/b once daily sodium bicarbonate 650 mg Tablet 650 mg PO BID 30 Days Qty: 60 3RF pantoprazole 40 mg tablet,delayed release (DR/EC) 40 mg PO DAILY Qty: 60 0RF Rx Instructions: Twice daily for next 4 weeks followed by once daily diltiazem HCl [Cardizem CD] 240 mg capsule,extended release 24hr 240 mg PO Q24H Qty: 30 0RF Changed furosemide [Lasix] 40 mg tablet 40 mg PO DAILY 30 Days Qty: 30 0RF Discontinued linezolid 600 mg Tablet 600 mg PO Q12H Qty: 6 0RF Discharge Orders: Discharge Order (Routine); Ordered 10/03/24 Ordered By: Felix Hernandez Referrals: Brian Benson MD [Physician] - 2 weeks Olive Vanegas MD [Physician] - 1 week Ramiro Villavicencio MD [Primary Care Provider] - 1-3 days Glory Gibbons MD [Referring] - 1 month (nephrology) Discharge Diet: Cardiac Discharge Activity: Resume usual activity Patient Instructions: Opioid Safety Activity Restrictions/Additional Instructions: - Creatinine on discharge 5.4, continue to monitor creatinine closely repeat BMP tomorrow -Please follow-up with nephrology in [place], Dr. Jackie Gibbons, in 2 to 4 weeks -Please follow with cardiology in 1 week -Please follow-up with general surgery in 2 weeks -Repeat CBC, monitor hemoglobin tomorrow, hemoglobin discharge 8.1 Discharge Attestations Time Spent in Discharge Care*: greater than 30 min Status at Discharge: Cognitive status at discharge: cognitively intact, Behavioral status at discharge: cooperative, Quality Metrics Clinical Quality Measures [ No reported AMI, CVA or VTE this stay] Coding Level of Care Code 57693 Total time (in minutes) for Discharge: 45 Diagnoses Acute kidney injury superimposed on stage 4 chronic kidney disease N17.9; N18.4
--- NOTE | 2024-10-03 11:53 | PC.NURSE ---
Report called to Bri at [facility] [place]. They state that they can accept this patient.
--- NOTE | 2024-10-03 12:07 | PC.NURSE ---
Recorders faxed to [facility] at this time. Used [phone] at [facility] request.
--- NOTE | 2024-10-03 12:26 | PC.NURSE ---
Spoke to Gilda COX at [facility] at this time who says she has everything and it is okay to send patient.
--- NOTE | 2024-10-03 13:00 | PC.NURSE ---
Patient's IV removed intact. Patient tolerated well.
--- NOTE | 2024-10-03 13:15 | PC.NURSE ---
Patient transported to the main entrance to be transported to [facility] by Taxi.
== END 2024-10-03 13:15 | disposition home or self-care (01) | DRG 291 ==
LOC: ER 02:48 → MEDSURG 03:50
PROVIDERS: Internal Medicine Nephrology; Surgery; Admitting Provider Internal Medicine; Emergency Provider Emergency Medicine; PCP Family Medicine; Visit Provider Family Medicine
PROC: 0DJ08ZZ Inspection of Upper Intestinal Tract, Via Natural or Artificial Opening Endoscopic (ICD-10-PCS; principal; 2024-10-03 08:00)
DX: I13.0 Hypertensive heart and chronic kidney disease with heart failure and stage 1 through stage 4 chronic kidney disease, or unspecified chronic kidney disease (principal); I50.23 Acute on chronic systolic (congestive) heart failure; N18.4 Chronic kidney disease, stage 4 (severe); J91.8 Pleural effusion in other conditions classified elsewhere; E87.20 Acidosis, unspecified; N17.9 Acute kidney failure, unspecified; I48.91 Unspecified atrial fibrillation; N40.0 Benign prostatic hyperplasia without lower urinary tract symptoms; Z66 Do not resuscitate; E13.22 Other specified diabetes mellitus with diabetic chronic kidney disease; E78.5 Hyperlipidemia, unspecified; Z96.619 Presence of unspecified artificial shoulder joint; Z96.659 Presence of unspecified artificial knee joint; I25.10 Atherosclerotic heart disease of native coronary artery without angina pectoris; G47.33 Obstructive sleep apnea (adult) (pediatric); K43.9 Ventral hernia without obstruction or gangrene; E87.5 Hyperkalemia; D63.1 Anemia in chronic kidney disease; I25.5 Ischemic cardiomyopathy; K29.00 Acute gastritis without bleeding; D50.9 Iron deficiency anemia, unspecified; Z79.899 Other long term (current) drug therapy; Z88.0 Allergy status to penicillin; Z86.718 Personal history of other venous thrombosis and embolism; I25.2 Old myocardial infarction; Z86.73 Personal history of transient ischemic attack (TIA), and cerebral infarction without residual deficits; Z98.61 Coronary angioplasty status; Z87.891 Personal history of nicotine dependence
CPT/HCPCS: 32555; 36415; 36430; 43239; 51702; 71045; 80048; 80053; 80503; 81001; 82274; 82575; 82728; 82945; 83540; 83615; 83690; 83735; 83880; 83986; 84100; 84145; 84157; 84300; 85014; 85018; 85025; 85610; 86140; 86850; 86900; 86920; 87070; 87075; 87205; 87637; 88305; 88342; 89050; 93005; 96374; 96375; 99285; J1815; J1940; J2470; J2704; J3490; J9999; P9016; Q3014

== ENCOUNTER → 2024-10-19 12:45 | Outpatient (BNVA) | payer MEDICARE, MEDICAID, SELFPAY | PROVIDERS: PCP Family Medicine; Visit Provider Internal Medicine Cardiovascular Disease | DX: I25.119 Atherosclerotic heart disease of native coronary artery with unspecified angina pectoris (principal); I13.2 Hypertensive heart and chronic kidney disease with heart failure and with stage 5 chronic kidney disease, or end stage renal disease; E13.22 Other specified diabetes mellitus with diabetic chronic kidney disease; N18.6 End stage renal disease; I50.20 Unspecified systolic (congestive) heart failure; N17.9 Acute kidney failure, unspecified; I48.20 Chronic atrial fibrillation, unspecified; Z95.5 Presence of coronary angioplasty implant and graft; Z87.891 Personal history of nicotine dependence | CPT/HCPCS: 99214 ==

== ENCOUNTER 2024-10-24 05:41 | Inpatient (IN) | payer MEDICARE, MEDICAID, SELFPAY ==
[2024-10-24] VITALS (74 sets, daily range): BP systolic 148–185; BP diastolic 76–120; PULSE 42–114; RESP 13–46; TEMP 36.8–37.4; O2SAT 83–97
--- NOTE | 2024-10-24 05:47 | ECG_ITS ---
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 Measurements Intervals [place] Rate: 105 P: 48 IN: 177 QRS: -36 QRSD: 105 T: 64 QT: 349 QTc: 462 Interpretive Statements SINUS TACHYCARDIA LEFT AXIS DEVIATION [QRS AXIS < -30] INCOMPLETE RIGHT BUNDLE BRANCH BLOCK [90+ ms QRS DURATION, TERMINAL R IN V1/V2, 40+ ms S IN I/aVL/V4/V5/V6] ANTEROSEPTAL MYOCARDIAL INFARCTION , OF INDETERMINATE AGE [40+ ms Q WAVE IN V1-V4] Compared to ECG 10/02/2024 09:29:07 Incomplete right bundle-branch block now present Atrial fibrillation no longer present Myocardial infarct finding still present Electronically Signed On 10-30-2024 18:44:46 CDT by Pieter Gomez M.D. [email or web address]
--- NOTE | 2024-10-24 05:53 | XRR_ITS ---
PROCEDURE INFORMATION: Exam: XR Chest Exam date and time: 10/24/2024 5:55 AM Age: 79 years old Clinical indication: Chest pressure; Prior surgery; Surgery date: 6+ months; Surgery type: C/O chest pain. History of chf. ; Additional info: Cp TECHNIQUE: Imaging protocol: Radiologic exam of the chest. Views: 1 view. COMPARISON: CR XR chest 1V portable [id number] 10/01/2024 8:51 AM FINDINGS: Lungs: Bilateral lower lobe consolidation/collapse. Mild interstitial pulmonary edema. Pleural spaces: Increase in the left pleural effusion. Decrease in the right pleural effusion. Heart/Mediastinum: The heart is enlarged. Bones/joints: Mild degenerative disease of bilateral acromioclavicular joints. Severe degenerative disease of the left glenohumeral joint. Post right humeral arthroplasty. Minimally displaced fracture of the lateral arch of the right 7th rib. The thoracic spine demonstrates moderate degenerative changes at multiple levels. XR/XR chest 1V portable [id number] IMPRESSION: Increase in the left pleural effusion in the decrease in the right pleural effusion with bilateral lower lobe consolidation/collapse. Mild interstitial pulmonary edema.
[2024-10-24 06:06] LABS: Basophils % 0.1 %; Eosinophils # 0.1 10^3/uL (0.0-0.8); Eosinophils % 0.7 %; Hematocrit 26.3 % (37-53); Lymphocytes % 10.8 %; Mean Corpuscular HGB Conc 31.2 g/dL (30-55); Mean Corpuscular Hemoglobin 29.1 pg (27-33); Mean Corpuscular Volume 93.3 fl (82-101); Monocytes # 0.9 10^3/uL (0.2-0.9); Monocytes % 9.5 %; Neutrophils # 7.16 10^3/uL (1.8-7.7); Neutrophils % 78.4 %; Nucleated Red Blood Cells % 0 %; Platelet Count 453 10^3/cmm (157-399); Red Blood Count 2.82 10^6/uL (3.85-5.65); Red Cell Distribution Width 14.6 % (12.1-15.1); White Blood Count 9.14 10^3/uL (3.29-11.43)
[2024-10-24 06:44] LABS: Alanine Aminotransferase 7 U/L (0-41); Albumin Level 4.3 g/dL (3.5-5.2); Alkaline Phosphatase 104 U/L (40-130); Anion Gap 21.3 (5-19); Aspartate Amino Transferase 5 U/L (0-40); Blood Urea Nitrogen 49 mg/dL (8-23); Calcium 9.3 mg/dL (8.5-10.5); Carbon Dioxide 18 mmol/L (22-29); Chloride 101 mmol/L (98-107); Globulin 2.8 g/dL (1.3-4.6); Glucose 108 mg/dL (65-115); Magnesium 1.9 mg/dL (1.7-2.3); NT Pro B Type Natriuretic Pept 24592 pg/mL (0-450); Osmolality Calculated 296 mOsm/kg (285-295); Potassium 4.3 mmol/L (3.5-5.1); Sodium 136 mmol/L (136-145); Total Bilirubin 0.3 mg/dL (0.15-1.2); Total Protein 7.1 g/dL (6.6-8.7)
[2024-10-24 06:48] LABS: Troponin(5th) Baseline 159 ng/L (0-15)
--- NOTE | 2024-10-24 06:56 | CTR_ITS ---
PROCEDURE INFORMATION: Exam: CT Chest Without Contrast; Diagnostic Exam date and time: 10/24/2024 7:42 AM Age: 79 years old Clinical indication: Cough and shortness of breath; Prior surgery; Surgery date: 6+ months; Surgery type: R shoulder; Additional info: Shortness of breath, cough, chest pain, abnormal x-ray TECHNIQUE: Imaging protocol: Diagnostic computed tomography of the chest without contrast. Radiation optimization: All CT scans at this facility use at least one of these dose optimization techniques: automated exposure control; mA and/or kV adjustment per patient size (includes targeted exams where dose is matched to clinical indication); or iterative reconstruction. COMPARISON: CT chest wo con [id number] 07/11/2024 5:57 PM RADIATION DOSE METRICS: Total DLP (mGy-cm): 562.98 FINDINGS: Lungs: Bilateral lower lobe consolidation/collapse. Pleural spaces: Moderate bilateral pleural effusions. Heart: Decreased density of the blood pool when compared to the ventricular wall, suggestive of anemia. Coronary arteries: There is moderate atherosclerotic calcification of the coronary arteries. Lymph nodes: Unremarkable. No enlarged lymph nodes. Vasculature: The vasculature demonstrates diffuse mild atherosclerotic calcification. Bones/joints: The thoracic spine demonstrates mild degenerative changes at multiple levels. There is mild curvature of the thoracic spine convex to the left. Soft tissues: Unremarkable. CT/CT chest con [id number] IMPRESSION: Moderate bilateral pleural effusions with lower lobe consolidation/collapse, more on the left side.
--- NOTE | 2024-10-24 07:03 | W.ED.CHESTPA ---
HPI - Chest Pain General: Chief Complaint: Chest Pain Stated Complaint: CP Time Seen by Provider: 10/24/24 06:44 History of Present Illness: Patient arrived to the ER by EMS with complaints of chest pain shortness of breath and cough. He said he has been going on for 2 or 3 days. The he says his breathing is starting it worse. He cannot catch his breath and he feels like he needs to cough something up but every time he coughs nothing comes up. He also admits to some chest pain as intermittent in the middle of his chest over more to the left side. Does not radiate. Patient denies any diaphoresis. Patient is a renal failure patient with a history of stroke and [place], Related Data Home Medications ?Medication ?Instructions ?Recorded ?Confirmed cyanocobalamin (vitamin B-12) 1,000 mcg SUBCUT DAILY 05/01/23 10/24/24 1,000 mcg/mL injection solution sodium phosphates 19 gram-[address] DAILY PRN Constipation 05/01/23 10/24/24 gram/118 mL enema (Fleet Enema) bisacodyl 10 mg rectal suppository [address] DAILY PRN Constipation 05/17/23 10/24/24 acetaminophen 300 mg-codeine 30 mg 1 - 2 tab PO Q4H PRN Pain 07/12/24 10/24/24 tablet albuterol sulfate 2.5 mg/3 mL 2.5 mg inhalation Q4H PRN SOB 07/12/24 10/24/24 (0.083 %) solution for nebulization artifi.tears(hypromellose)(PF) 1.7 1 drp ophthalmic (eye) BID PRN Dry 07/12/24 10/24/24 % eye drops with applicator Eyes citalopram 20 mg tablet 20 mg PO DAILY 07/12/24 10/24/24 docusate sodium 100 mg capsule 100 mg PO DAILY 07/12/24 10/24/24 (Colace) ondansetron HCl 4 mg tablet 4 mg PO Q4H PRN Nausea And Vomiting 07/12/24 10/24/24 trazodone 50 mg tablet 50 mg PO BEDTIME 07/12/24 10/24/24 alprazolam 0.5 mg tablet 0.5 mg PO Q8H PRN Anxiety 10/19/24 10/24/24 albuterol sulfate 90 mcg/actuation 1 inh inhalation Q6H PRN shortness 10/24/24 10/24/24 aerosol inhaler (Ventolin HFA) of breath or wheezing amiodarone 200 mg tablet (Pacerone) 200 mg PO DAILY 10/24/24 10/24/24 dextromethorphan-guaifenesin 5 10 ml PO Q4H PRN Cough 10/24/24 10/24/24 mg-100 mg/5 mL oral liquid (Robitussin Cough-Chest Congestion DM) diltiazem HCl 120 mg tablet 240 mg PO DAILY 10/24/24 10/24/24 Previous Rx's ?Medication ?Instructions ?Recorded pantoprazole 40 mg tablet,delayed 40 mg PO DAILY #60 tabs 07/15/24 release sodium bicarbonate 650 mg tablet 650 mg PO BID 30 days #60 tabs 07/15/24 furosemide 40 mg tablet (Lasix) 40 mg PO DAILY weight gain 30 days 10/01/24 #30 tabs potassium chloride 10 mEq 10 meq PO DAILY 30 days #30 tabs 10/01/24 tablet,extended release (Klor-Con) sucralfate 1 gram tablet (Carafate) 1 g PO BID 4 weeks #56 tabs 10/03/24 isosorbide mononitrate 30 mg 30 mg PO DAILY #90 tabs 10/19/24 tablet,extended release 24 hr nitroglycerin 0.4 mg sublingual 0.4 mg sublingual Q5M PRN chest 10/19/24 tablet pain #20 tabs Allergies Allergy/AdvReac Type Severity Reaction Status Date / Time Penicillins Allergy Unknown Unknown Verified 10/19/24 13:06 Review of Systems General: Reports: 10 or more systems reviewed and unremarkable except in HPI and below PFSH ED PFSH: Medical History Systolic CHF Renal failure (ARF), acute on chronic AMS (altered mental status) Metabolic encephalopathy Expressive aphasia End stage renal disease Right leg DVT Iliac DVT (deep venous thrombosis) Pleural effusion, left CHRISTY (obstructive sleep apnea) Eosinophilic asthma History of stroke BPH (benign prostatic hyperplasia) Myocardial infarct ASHD (arteriosclerotic heart disease) Diabetes 1.5, managed as type 2 HTN (hypertension) Hyperlipidemia Surgical History History of knee replacement (~2014) History of shoulder replacement S/P shoulder replacement S/P knee replacement H/O esophagogastroduodenoscopy (09/26/20) History of colonoscopy (09/26/20) S/P PTCA (percutaneous transluminal coronary angioplasty) Family History Mother Dementia Denies family history of Family history of premature coronary artery disease Social History Smoking and tobacco/nicotine status: former use of tobacco/nicotine Quit status (tobacco/nicotine): has quit using Year quit tobacco: 1971 Former quit date comment: 2ppd x 10 years Alcohol intake: never Household members: spouse Marital status: service: No Current occupational status: retired Physical Exam Const: COMMON NORMALS: no acute distress, average body habitus, patient oriented x3, no limitations, healthy appearing, alert and well nourished HENMT: COMMON NORMALS: normocephalic, atraumatic, hearing grossly normal bilaterally, external ears normal, Normal external nose present, moist oral mucous membranes and oropharynx normal HEAD & SCALP: normocephalic and atraumatic NOSE: Normal external nose present EXTERNAL EAR: Yes external ears normal Neck/C-Spine: COMMON NORMALS: full ROM, no lymphadenopathy, supple, no meningeal signs, no JVD and Thyroid normal THYROID: Thyroid normal Chest: COMMONS NORMALS: normal inspection of the chest and normal palpation of entire chest wall Resp: COMMON NORMALS: normal respiratory effort, No retractions and No use of accessory muscles; negative for clear to auscultation bilaterally (Mild diffuse rhonchi) AUSCULTATION: not clear to auscultation bilaterally (Mild diffuse rhonchi) Cardio: COMMON NORMALS: no JVD, regular rate, regular rhythm, S1 normal heart sound present, S2 normal heart sound present, No gallops present (Cardio), No clicks present (Cardio), No murmurs present (Cardio) and No rub (Cardio) RATE: regular rate RHYTHM: regular rhythm HEART SOUNDS: S1 normal heart sound present and S2 normal heart sound present GI: COMMON NORMALS: Soft to palpation, non-tender, No hepatosplenomegaly present and no masses PALPATION: Yes Soft to palpation and Yes No hepatosplenomegaly present Neuro: COMMON NORMALS: patient oriented x3 SENSORIUM/ORIENTATION: Yes alert MENINGEAL SIGNS: Yes no meningeal signs Course Vital Signs: Vital signs: Vital Signs Temperature 99.4 F 10/24/24 05:42 Pulse Rate 98 10/24/24 09:05 Respiratory Rate 28 H 10/24/24 09:05 Blood Pressure 148/78 10/24/24 09:05 Pulse Oximetry 95 10/24/24 09:05 Oxygen Delivery Me thod Room Air 10/24/24 07:20 MDM - Chest Pain Medical Decision Making Lab work showed hemoglobin 8.2, BUN/creatinine 49 4.8 these are all consistent with patient's prior. BNP 24,592, initial troponin 159, 2-hour troponin 151, chest x-ray and chest CT both show bilateral pulmonary effusions. Patient was given 60 mg IV Lasix p.o. he remained normoxic on room air with O2 saturation of approximate 9 6%. Patient adamantly refused to be admitted to the hospital even though he was offered multiple times. Patient said he wants to go home and if he gets worse he will come back. Patient knows the increased risk with this. We will increase the patient's Lasix to 40 mg twice a day for the next 3 days and then back to 40 mg daily. Patient talked to his daughter and she convinced him that he needs to stay in the hospital patient would like to stay in the hospital now. Dr. Zelaya was consulted who came down to the ER and saw the patient and accepted him for inpatient evaluation treatment. Medical Records I reviewed the patient's medical records. Lab Data I reviewed the patient's lab results. 10/24/24 05:50 10/24/24 05:50 Radiology Impressions Chest X-Ray 10/24/24 05:53 IMPRESSION: Increase in the left pleural effusion in the decrease in the right pleural effusion with bilateral lower lobe consolidation/collapse. Mild interstitial pulmonary edema. Chest CT 10/24/24 06:56 IMPRESSION: Moderate bilateral pleural effusions with lower lobe consolidation/collapse, more on the left side. Laboratory Results WBC 9.14 10^3/uL (3.29-11.43) 10/24/24 05:50 RBC 2.82 10^6/uL (3.85-5.65) L 10/24/24 05:50 Hgb 8.20 g/dL (11.27-16.99) L 10/24/24 05:50 Hct 26.3 % (37-53) L 10/24/24 05:50 MCV 93.3 fl (82-101) 10/24/24 05:50 MCH 29.1 pg (27-33) 10/24/24 05:50 MCHC 31.2 g/dL (30-55) 10/24/24 05:50 RDW 14.6 % (12.1-15.1) 10/24/24 05:50 Plt Count 453 10^3/cmm (157-399) H 10/24/24 05:50 MPV 9.0 fL (7.4-10.4) 10/24/24 05:50 Neut % (Auto) 78.4 % 10/24/24 05:50 Lymph % (Auto) 10.8 % 10/24/24 05:50 [place] % (Auto) 9.5 % 10/24/24 05:50 Eos % (Auto) 0.7 % 10/24/24 05:50 Baso % (Auto) 0.1 % 10/24/24 05:50 Neut # (Auto) 7.16 10^3/uL (1.8-7.7) 10/24/24 05:50 Lymph # (Auto) 1.0 10^3/uL (0.8-4.8) 10/24/24 05:50 [place] # (Auto) 0.9 10^3/uL (0.2-0.9) 10/24/24 05:50 Eos # (Auto) 0.1 10^3/uL (0.0-0.8) 10/24/24 05:50 Baso # (Auto) 0.0 10^3/uL (0.0-0.1) 10/24/24 05:50 Nucleated RBC % (auto) 0 % 10/24/24 05:50 Nucleated RBCs # 0.0 /100WBC 10/24/24 05:50 Sodium 136 mmol/L (136-145) 10/24/24 05:50 Potassium 4.3 mmol/L (3.5-5.1) 10/24/24 05:50 Chloride 101 mmol/L (98-107) 10/24/24 05:50 Carbon Dioxide 18 mmol/L (22-29) L 10/24/24 05:50 Anion Gap 21.3 (5-19) H 10/24/24 05:50 BUN 49 mg/dL (8-23) H 10/24/24 05:50 Creatinine 4.8 mg/dL (0.7-1.2) H 10/24/24 05:50 GFR Calculation Not Reportable 10/24/24 05:50 Glucose 108 mg/dL (65-115) 10/24/24 05:50 Calculated Osmolality 296 mOsm/kg (285-295) H 10/24/24 05:50 Calcium 9.3 mg/dL (8.5-10.5) 10/24/24 05:50 Phosphorus 3.4 mg/dL (2.5-4.5) 10/24/24 05:50 Magnesium 1.9 mg/dL (1.7-2.3) 10/24/24 05:50 Total Bilirubin 0.3 mg/dL (0.15-1.2) 10/24/24 05:50 AST 5 U/L (0-40) 10/24/24 05:50 ALT 7 U/L (0-41) 10/24/24 05:50 Alkaline Phosphatase 104 U/L (40-130) 10/24/24 05:50 Troponin T Baseline 159 ng/L (0-15) H* 10/24/24 05:50 Troponin T 120 Minute 151.4 ng/L (0-15) H 10/24/24 08:21 Delta Troponin T -7.6 ABS# (0-10) L 10/24/24 08:21 NT-Pro-B Natriuret Pep 75618 pg/mL (0-450) H 10/24/24 05:50 Total Protein 7.1 g/dL (6.6-8.7) 10/24/24 05:50 Albumin 4.3 g/dL (3.5-5.2) 10/24/24 05:50 Globulin 2.8 g/dL (1.3-4.6) 10/24/24 05:50 Influenza A (PCR) Negative (Negative) 10/24/24 07:54 Influenza Type B (PCR) Negative (Negative) 10/24/24 07:54 RSV (PCR) Negative (Negative) 10/24/24 07:54 SARS-CoV-2 (PCR) Negative (Negative) 10/24/24 07:54 All radiology interpretation(s) finalized by discharge Discharge Plan Discharge Patient Disposition: Admitted As Inpatient Clinical Impression: Bilateral pleural effusion Chronic renal failure Qualifiers: Chronic kidney disease stage: unspecified stage Qualified Code(s): N18.9 - Chronic kidney disease, unspecified Chest pain Qualifiers: Chest pain type: unspecified Qualified Code(s): R07.9 - Chest pain, unspecified Condition: Stable Coding Level of Care Code ED [employer] Developer for Milind Johnston
[2024-10-24] MEDS: ipratropium-albuterol 3 mL Neb INHALATION (07:20)
[2024-10-24] MEDS: FUROsemide 10 mg/mL SDV 10mL 60 MG IVP ×2 (07:35→16:09)
--- NOTE | 2024-10-24 07:39 | PC.PHAR ---
Pt is from [facility]
[2024-10-24 07:56] LABS: Phosphorus 3.4 mg/dL (2.5-4.5)
[2024-10-24 08:41] LABS: Influenza A NEGATIVE (Negative); Influenza B NEGATIVE (Negative); Respiratory Syncytial Virus Ce NEGATIVE (Negative); SARS-CoV-2 PCR NEGATIVE (Negative)
[2024-10-24 09:02] LABS: Troponin 5 2HR Delta -7.6 ABS# (0-10)
[2024-10-24 09:03] LABS: Troponin 5 2HR 151.4 ng/L (0-15)
--- NOTE | 2024-10-24 11:53 | ECG_ITS ---
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1945 Requested By: Alec Childress Order Number: [id number] Reading MD: STUART REDMOND Measurements Intervals [place] Rate: 101 P: 43 [place]: 164 QRS: -50 QRSD: 102 T: 40 QT: 345 QTc: 448 Interpretive Statements SINUS TACHYCARDIA LEFT AXIS DEVIATION [QRS AXIS < -30] INCOMPLETE RIGHT BUNDLE BRANCH BLOCK [90+ ms QRS DURATION, TERMINAL R IN V1/V2, 40+ ms S IN I/aVL/V4/V5/V6] ANTEROSEPTAL MYOCARDIAL INFARCTION , OF INDETERMINATE AGE [40+ ms Q WAVE IN V1-V4] Compared to ECG 10/24/2024 05:47:47 No significant changes Electronically Signed On 10-31-2024 21:48:05 CDT by STUART REDMOND [email or web address]
--- NOTE | 2024-10-24 12:35 | PM.HP ---
Providers/Chief Complaint Primary Care Provider: Ramiro Villavicencio MD Chief Complaint: CP History of Present Illness Jhon Marcos is a 79 year old male with past medical history of systolic heart failure with EF of 45%, CKD stage V, atrial fibrillation, presented to the ER today with progressive shortness of breath, chest pain, and weakness. Says that for the last few days he has had chest pressure, more difficulties breathing, and has been growing more weak. [facility] He says that he has been coughing up some Thick white phlegm for a few days, but has not had a fever or other signs of illness. Reports that he was previously on dialysis, and attended for 4 to 5 months, but quit because it made him feel terrible. He does still make quite a bit of urine. He takes Lasix daily. In the ER today lab work showed hemoglobin 8.2, BUN/creatinine 49 4.8 all consistent with patient's prior. BNP 24,592, initial troponin 159, 2-hour troponin 151, chest x-ray and chest CT both show bilateral pulmonary effusions. Patient was given 60 mg IV Lasix p.o. he remained normoxic on room air with O2 saturation of approximate 9 6%. Patient adamantly refused to be admitted to the hospital even though he was offered multiple times. He has a Conteh catheter in place. He had a decrease in his delta troponin, and I believe that his elevation is likely due to heart strain from his acute heart failure exacerbation. Discussed with patient that he will need admission diuresis, and continued monitoring to ensure his symptoms resolve, and his labs remained stable. He is willing and we will place him on the cardiac stepdown unit. Review of Systems General: Reports: 10 or more systems reviewed and unremarkable except in HPI and below Medications/Allergies Home Medications ?Medication ?Instructions ?Recorded ?Confirmed ?Last Taken ?Type cyanocobalamin (vitamin B-12) 1,000 mcg SUBCUT DAILY 05/01/23 10/24/24 10/23/24 History 1,000 mcg/mL injection solution sodium phosphates 19 gram-7 118 ml [place] DAILY PRN Constipation 05/01/23 10/24/24 Unknown History gram/118 mL enema (Fleet Enema) bisacodyl 10 mg rectal suppository 10 mg AZ DAILY PRN Constipation 05/17/23 10/24/24 Unknown History acetaminophen 300 mg-codeine 30 mg 1 - 2 tab PO Q4H PRN Pain 07/12/24 10/24/24 Unknown History tablet albuterol sulfate 2.5 mg/3 mL 2.5 mg inhalation Q4H PRN SOB 07/12/24 10/24/24 Unknown History (0.083 %) solution for nebulization artifi.tears(hypromellose)(PF) 1.7 1 drp ophthalmic (eye) BID PRN Dry 07/12/24 10/24/24 10/23/24 History % eye drops with applicator Eyes citalopram 20 mg tablet 20 mg PO DAILY 07/12/24 10/24/24 10/23/24 History docusate sodium 100 mg capsule 100 mg PO DAILY 07/12/24 10/24/24 10/23/24 History (Colace) ondansetron HCl 4 mg tablet 4 mg PO Q4H PRN Nausea And Vomiting 07/12/24 10/24/24 Unknown History trazodone 50 mg tablet 50 mg PO BEDTIME 07/12/24 10/24/24 10/22/24 History pantoprazole 40 mg tablet,delayed 40 mg PO DAILY #60 tabs 07/15/24 10/24/24 10/23/24 Rx release sodium bicarbonate 650 mg tablet 650 mg PO BID 30 days #60 tabs 07/15/24 10/24/24 10/23/24 Rx furosemide 40 mg tablet (Lasix) 40 mg PO DAILY weight gain 30 days 10/01/24 10/24/24 10/23/24 Rx #30 tabs potassium chloride 10 mEq 10 meq PO DAILY 30 days #30 tabs 10/01/24 10/24/24 10/23/24 Rx tablet,extended release (Klor-Con) sucralfate 1 gram tablet (Carafate) 1 g PO BID 4 weeks #56 tabs 10/03/24 10/24/24 10/23/24 Rx alprazolam 0.5 mg tablet 0.5 mg PO Q8H PRN Anxiety 10/19/24 10/24/24 Unknown History isosorbide mononitrate 30 mg 30 mg PO DAILY #90 tabs 10/19/24 10/24/24 Unknown Rx tablet,extended release 24 hr nitroglycerin 0.4 mg sublingual 0.4 mg sublingual Q5M PRN chest 10/19/24 10/24/24 Unknown Rx tablet pain #20 tabs albuterol sulfate 90 mcg/actuation 1 inh inhalation Q6H PRN shortness 10/24/24 10/24/24 Unknown History aerosol inhaler (Ventolin HFA) of breath or wheezing amiodarone 200 mg tablet (Pacerone) 200 mg PO DAILY 10/24/24 10/24/24 10/23/24 History dextromethorphan-guaifenesin 5 10 ml PO Q4H PRN Cough 10/24/24 10/24/24 10/22/24 History mg-100 mg/5 mL oral liquid (Robitussin Cough-Chest Congestion DM) diltiazem HCl 120 mg tablet 240 mg PO DAILY 10/24/24 10/24/24 10/23/24 History Allergies Allergy/AdvReac Type Severity Reaction Status Date / Time Penicillins Allergy Unknown Unknown Verified 10/19/24 13:06 PFSH Acute PFSH: Medical History Systolic CHF Renal failure (ARF), acute on chronic AMS (altered mental status) Metabolic encephalopathy Expressive aphasia End stage renal disease Right leg DVT Iliac DVT (deep venous thrombosis) Pleural effusion, left CHRISTY (obstructive sleep apnea) Eosinophilic asthma History of stroke BPH (benign prostatic hyperplasia) Myocardial infarct ASHD (arteriosclerotic heart disease) Diabetes 1.5, managed as type 2 HTN (hypertension) Hyperlipidemia Surgical History History of knee replacement (~2014) History of shoulder replacement S/P shoulder replacement S/P knee replacement H/O esophagogastroduodenoscopy (09/26/20) History of colonoscopy (09/26/20) S/P PTCA (percutaneous transluminal coronary angioplasty) Family History Mother Dementia Denies family history of Family history of premature coronary artery disease Social History Smoking and tobacco/nicotine status: former use of tobacco/nicotine Quit status (tobacco/nicotine): has quit using Year quit tobacco: 1971 Former quit date comment: 2ppd x 10 years Alcohol intake: never Household members: spouse Marital status: service: No Current occupational status: retired Vitals/I&O/Wt Last Vital Signs Temp 99.4 F 10/24/24 05:42 Pulse 98 10/24/24 09:05 Resp 28 H 10/24/24 09:05 BP 148/78 10/24/24 09:05 Pulse Ox 95 10/24/24 09:05 O2 Del Method Room Air 10/24/24 07:20 Physical Exam Narrative: General: Cooperative patient in mild respiratory distress. He is well-developed. HEENT: Normocephalic, Atraumatic. External ears normal. Nasal passages patent without drainage. MMM. Heart: RRR. There is a 2/6 systolic murmur heard over the sternal borders. Resp: Lung sounds are reduced throughout. There are mild wheezes in the upper airways. Fine crackles are heard throughout the lower lungs. Abd: Soft, non-tender. There is a large abdominal hernia across most of the lower abdomen. Extremities: 2+ lower extremity edema. Skin: No rash or lesions on exposed areas. Data 10/24/24 05:50 10/24/24 05:50 A&P Assessment and plan (1) Chest pain: Qualifiers: Chest pain type: unspecified Qualified Code(s): R07.9 - Chest pain, unspecified (2) Heart failure with reduced ejection fraction: (3) Acute exacerbation of chronic heart failure: (4) Bilateral pleural effusion: (5) End stage renal disease: (6) Atrial fibrillation with RVR: (7) HTN (hypertension): (8) Acute respiratory distress: Plan 79-year-old male admitted for acute exacerbation of heart failure with respiratory distress. Will admit to CSU Labs showed hemoglobin 8.2, BUN/creatinine 49 4.8 , BNP 24,592, initial troponin 159, 2-hour troponin 151, chest x-ray and chest CT both show bilateral pulmonary effusions. Patient was given 60 mg IV Lasix and had about 1.5 L of fluid off through his urine. Currently he is satting normal without supplemental oxygen. Will place him on an oxygen protocol. Will have respiratory evaluate and treat as well. Continue IV Lasix 60 mg twice daily with potassium replacement. Recheck a.m. labs. Once he is over this acute exacerbation, I will likely repeat an echo and see how his heart function is. At home he is on amiodarone, and diltiazem for his atrial fibrillation. Will hold these for now as he is currently in decompensated heart failure. Will likely need to restart these once he is stable. Will continue his isosorbide for now to help with his blood pressure. Heparin for VTE prophylaxis. Protonix for GI prophylaxis. Repeat a.m. labs. Code Status: Full IVF: None DVT PPx: Heparin GI PPx: Protonix ABx: None Diet: Cardiac, low sodium, 1200cc fluid restriction Discharge plan: Back to SNF when stable. PDMP PDMP Reviewed: Not Reviewed Attestations Medical Necessity Statement*: Patient will need greater than 2 midnight stay for decompensated heart failure, volume overload, severe respiratory distress, recheck on labs, strict I's and O's. Coding Level of Care Code Acute Code for Chg Fwd Moderate MDM includes number and complexity of problems actively addressed during encounter, amount and/or complexity of data reviewed/ordered and described risk of complication, morbidity or mortality of management as documented Diagnoses Chest pain R07.9 Chest pain type: unspecified Heart failure with reduced ejection fraction I50.20 Acute exacerbation of chronic heart failure I50.9 Bilateral pleural effusion J90 End stage renal disease N18.6 Atrial fibrillation with RVR I48.91 HTN (hypertension) I10 Acute respiratory distress R06.03
[2024-10-24 12:48] LABS: Troponin 5 6HR Delta -22.3 ng/L (0-12)
[2024-10-24 12:49] LABS: Troponin 5 6HR 136.7 ng/L (0-15)
[2024-10-24] MEDS: heparin 5,000 unit/mL INJ 1 mL 5000 UNIT SUBCUT (13:03)
--- NOTE | 2024-10-24 13:12 | PC.NURSE ---
Spoke to Dr. Baker at this time and states he wanted patient placed in CSU not on the medical surgical floor. Rosemary goldenpump house technician notified.
--- NOTE | 2024-10-24 14:47 | ECG_ITS ---
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1945 Requested By: Alec Childress Order Number: [id number] Shannan MD: STUART REDMOND Measurements Intervals [place] Rate: 104 P: 55 MI: 164 QRS: -47 QRSD: 99 T: 74 QT: 363 QTc: 479 Interpretive Statements SINUS TACHYCARDIA LEFT AXIS DEVIATION [QRS AXIS < -30] ANTEROSEPTAL MYOCARDIAL INFARCTION , OF INDETERMINATE AGE [40+ ms Q WAVE IN V1-V4] Compared to ECG 10/24/2024 12:10:06 Incomplete right bundle-branch block no longer present Myocardial infarct finding still present Electronically Signed On 10-31-2024 21:48:10 CDT by STUART REDMOND [id number]
[2024-10-24] MEDS: potassium chloride ER 20 mEq Tablet PO (16:07)
[2024-10-24] MEDS: HYDROcodone-acetaminophen 5-325 mg Tablet 1 TAB PO ×2 (16:08→20:59)
--- NOTE | 2024-10-24 20:52 | ECG_ITS ---
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 Measurements Intervals [place] Rate: 120 P: 58 [place]: 172 QRS: -49 QRSD: 106 T: 76 QT: 301 QTc: 427 Interpretive Statements SINUS TACHYCARDIA LEFT AXIS DEVIATION [QRS AXIS < -30] INCOMPLETE RIGHT BUNDLE BRANCH BLOCK [90+ ms QRS DURATION, TERMINAL R IN V1/V2, 40+ ms S IN I/aVL/V4/V5/V6] SEPTAL MYOCARDIAL INFARCTION , OF INDETERMINATE AGE [40+ ms Q WAVE IN V1/V2] Compared to ECG 10/24/2024 14:47:00 Incomplete right bundle-branch block now present Myocardial infarct finding still present Electronically Signed On 10-30-2024 18:40:14 CDT by Pieter Gomez M.D. [id number] [id number]
[2024-10-24] MEDS: trazodone 50 mg Tablet PO (20:59)
[2024-10-24] MEDS: ALPRAZolam 0.5 mg Tablet PO (21:03)
[2024-10-25] VITALS (9 sets, daily range): BP systolic 118–170; BP diastolic 76–98; PULSE 90–116; RESP 16–26; TEMP 36.3–37; O2SAT 88–98
[2024-10-25] MEDS: heparin 5,000 unit/mL INJ 1 mL 5000 UNIT SUBCUT ×2 (00:43→14:35)
[2024-10-25 03:22] LABS: Basophils % 0.1 %; Eosinophils % 0.2 %; Hematocrit 27.8 % (37-53); Lymphocytes # 1.2 10^3/uL (0.8-4.8); Lymphocytes % 13.2 %; Mean Corpuscular HGB Conc 30.2 g/dL (30-55); Mean Corpuscular Hemoglobin 28.5 pg (27-33); Mean Corpuscular Volume 94.2 fl (82-101); Monocytes # 0.8 10^3/uL (0.2-0.9); Monocytes % 8.4 %; Neutrophils # 7.22 10^3/uL (1.8-7.7); Neutrophils % 77.8 %; Nucleated Red Blood Cells % 0 %; Platelet Count 430 10^3/cmm (157-399); Red Blood Count 2.95 10^6/uL (3.85-5.65); Red Cell Distribution Width 14.3 % (12.1-15.1); White Blood Count 9.29 10^3/uL (3.29-11.43)
[2024-10-25 03:51] LABS: Anion Gap 19.3 (5-19); Blood Urea Nitrogen 47 mg/dL (8-23); Calcium 9.4 mg/dL (8.5-10.5); Carbon Dioxide 20 mmol/L (22-29); Chloride 99 mmol/L (98-107); Creatinine Clr Calc Pharmacy 12.8857; Glucose 109 mg/dL (65-115); Osmolality Calculated 291 mOsm/kg (285-295); Potassium 4.3 mmol/L (3.5-5.1); Sodium 134 mmol/L (136-145); Thyroid Stimulating Hormone 4.72 uIU/mL (0.27-4.20)
[2024-10-25] MEDS: isosorbide mononitrate ER 30 mg Tablet PO (08:27)
[2024-10-25] MEDS: FUROsemide 10 mg/mL SDV 10mL 60 MG IVP ×2 (08:27→17:40)
[2024-10-25] MEDS: citalopram 20 mg Tablet PO (08:27)
[2024-10-25] MEDS: docusate sodium 100 mg Capsule PO (08:28)
[2024-10-25] MEDS: amiodarone 200 mg Tablet PO (08:28)
[2024-10-25] MEDS: pantoprazole DR 40 mg Tablet PO (08:28)
[2024-10-25] MEDS: potassium chloride ER 20 mEq Tablet PO ×2 (08:28→17:40)
[2024-10-25] MEDS: HYDROcodone-acetaminophen 5-325 mg Tablet 1 TAB PO (09:53)
--- NOTE | 2024-10-25 10:50 | PC.NURSE ---
patient was complaining of extreme pain while trying to urinate through his patel. Attempts to make the patient more comfortable were made but patient still felt pressure and pain. Nurse replaced patel cathether with a 16 fr patel. Patient now states he feels much more comfortable. Urine is draining from patel into bag.
--- NOTE | 2024-10-25 11:29 | PC.SOCIAL ---
IMM Update pg 2 of IMM updated and reviewed w/ patient. Copy provided and copy dated, initialed and placed in chart.
--- NOTE | 2024-10-25 11:55 | P.PN_ITS ---
Subjective 2 Subjective: Appears to be doing much better today. Had some issues with his catheter overnight, this was replaced and he had good urine output. Says that his breathing has improved significantly. He is no longer short of breath. He is on a little supplemental oxygen, but he is satting into the upper 90s currently. White count was normal. Creatinine currently at 5.1, BUN at 47. This is chronic for him as he has end-stage kidney disease. Eating and drinking well. No other complaints overnight. Medications: Reviewed: Yes Vitals/I&O/Wt Last Vital Signs Temp 98.6 F 10/25/24 07:17 Pulse 116 H 10/25/24 09:51 Resp 16 10/25/24 09:51 BP 150/87 10/25/24 07:17 Pulse Ox 97 10/25/24 09:51 O2 Del Method Nasal Cannula 10/25/24 09:51 O2 Flow Rate 3 10/25/24 09:51 10/24/24 10/25/24 10/25/24 22:59 06:59 14:59 Output Total 1200 / 1200 Balance -1200 / -1200 Weight last 48 hrs Weight 191 lb 1.6 oz Weight 191 lb 1.6 oz Weight 193 lb Physical Exam 2 Narrative: General: Cooperative patient in mild respiratory distress. He is well- developed. HEENT: Normocephalic, Atraumatic. External ears normal. Nasal passages patent without drainage. MMM. Heart: RRR. There is a 2/6 systolic murmur heard over the sternal borders. Resp: Lung sounds mildly reduced. No fine rales heard at this time. There are very mild wheezes in the upper airways. Abd: Soft, non-tender. There is a large abdominal hernia across most of the lower abdomen. Extremities: 1+ edema lower extremities. Skin: No rash or lesions on exposed areas. Urinary Catheter Management: Conteh: Cath Placed During This Visit: yes Reason for Continuing Indwelling Catheter: Accurate Measurement of Urinary Output in Critically Ill Patients Urinary Catheter Date of Insertion: 10/25/24 Urinary Catheter Time of Insertion: 10:49 Data 10/25/24 02:47 10/25/24 02:47 A&P Assessment and plan (1) Chest pain: Qualifiers: Chest pain type: unspecified Qualified Code(s): R07.9 - Chest pain, unspecified (2) Heart failure with reduced ejection fraction: (3) Acute exacerbation of chronic heart failure: (4) Bilateral pleural effusion: (5) End stage renal disease: (6) Atrial fibrillation with RVR: (7) HTN (hypertension): (8) Acute respiratory distress: Plan 79-year-old male admitted for acute exacerbation of heart failure with respiratory distress. Continue close inpatient monitoring. Has had good diuresis out over the last 24 hours. Symptomatically he appears to be doing better. He did have some issues with his Conteh, and this was replaced. His output was not as good overnight, but has picked back up this morning. His lung exam has improved significantly. Continue current diuresis regimen, and will monitor I's and O's regularly.Continue to check his labs daily. Continue RAAT and O2 protocol. Continue IV Lasix 60 mg twice daily with potassium replacement. Once he is over this acute exacerbation, I will likely repeat an echo and see how his heart function is. Will restart his home medications today. He seems to be much more stable. Blood pressure has picked up slightly as well as heart rate. Will restart his amiodarone. Will continue his isosorbide for now to help with his blood pressure. Heparin for VTE prophylaxis. Protonix for GI prophylaxis. Repeat a.m. labs. Code Status: Full IVF: None DVT PPx: Heparin GI PPx: Protonix ABx: None Diet: Cardiac, low sodium, 1200cc fluid restriction Discharge plan: Back to SNF when stable. PDMP PDMP Reviewed: Not Reviewed Attestations 2 Medical Necessity Statement*: Patient will need greater than 2 midnight stay for decompensated heart failure, volume overload, severe respiratory distress, recheck on labs, strict I's and O's. Coding Level of Care Code Acute Code for Chg Fwd Moderate MDM includes number and complexity of problems actively addressed during encounter, amount and/or complexity of data reviewed/ordered and described risk of complication, morbidity or mortality of management as documented Diagnoses Chest pain R07.9 Chest pain type: unspecified Heart failure with reduced ejection fraction I50.20 Acute exacerbation of chronic heart failure I50.9 Bilateral pleural effusion J90 End stage renal disease N18.6 Atrial fibrillation with RVR I48.91 HTN (hypertension) I10 Acute respiratory distress R06.03
[2024-10-25] MEDS: trazodone 50 mg Tablet PO (20:14)
[2024-10-25] MEDS: ALPRAZolam 0.5 mg Tablet PO (20:14)
[2024-10-26] VITALS (10 sets, daily range): BP systolic 125–148; BP diastolic 66–87; PULSE 87–96; RESP 16–23; TEMP 36.6–36.9; O2SAT 94–99
[2024-10-26] MEDS: heparin 5,000 unit/mL INJ 1 mL 5000 UNIT SUBCUT ×2 (00:15→12:36)
[2024-10-26 02:44] LABS: Basophils % 0.1 %; Eosinophils # 0.2 10^3/uL (0.0-0.8); Eosinophils % 2.8 %; Hematocrit 25.3 % (37-53); Lymphocytes # 2.3 10^3/uL (0.8-4.8); Mean Corpuscular HGB Conc 30.8 g/dL (30-55); Mean Corpuscular Hemoglobin 28.5 pg (27-33); Mean Corpuscular Volume 92.3 fl (82-101); Mean Platelet Volume 8.7 fL (7.4-10.4); Monocytes # 0.8 10^3/uL (0.2-0.9); Monocytes % 11.1 %; Neutrophils % 53.6 %; Nucleated Red Blood Cells % 0 %; Platelet Count 394 10^3/cmm (157-399); Red Blood Count 2.74 10^6/uL (3.85-5.65); Red Cell Distribution Width 14.3 % (12.1-15.1)
[2024-10-26 03:05] LABS: Anion Gap 16.3 (5-19); Blood Urea Nitrogen 57 mg/dL (8-23); Calcium 8.9 mg/dL (8.5-10.5); Carbon Dioxide 20 mmol/L (22-29); Chloride 100 mmol/L (98-107); Creatinine Clr Calc Pharmacy 12.3462; Glucose 108 mg/dL (65-115); Osmolality Calculated 290 mOsm/kg (285-295); Potassium 4.3 mmol/L (3.5-5.1); Sodium 132 mmol/L (136-145)
--- NOTE | 2024-10-26 03:24 | ECG_ITS ---
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 Measurements Intervals [place] Rate: 91 P: 36 MD: 189 QRS: -44 QRSD: 105 T: 33 QT: 385 QTc: 474 Interpretive Statements SINUS RHYTHM LEFT AXIS DEVIATION [QRS AXIS < -30] SEPTAL MYOCARDIAL INFARCTION , PROBABLY OLD [40+ ms Q WAVE IN V1/V2] Compared to ECG 10/24/2024 20:56:55 Sinus tachycardia no longer present Incomplete right bundle-branch block no longer present Myocardial infarct finding still present Electronically Signed On 10-30-2024 18:31:32 CDT by Pieter Gomez M.D. [id number]
[2024-10-26] MEDS: albuterol 2.5 mg/3 mL Neb INHALATION (03:55)
--- NOTE | 2024-10-26 04:14 | PC.NURSE ---
Notified Dr. Heart that patient is having chest pressure during breathing and coughing with associated SOB. EKG obtained and breathing treatment in progress. Last CXR done 10/24/24. Awaiting response.
[2024-10-26] MEDS: potassium chloride ER 20 mEq Tablet PO ×2 (08:42→17:52)
[2024-10-26] MEDS: FUROsemide 10 mg/mL SDV 10mL 60 MG IVP ×2 (08:42→17:52)
[2024-10-26] MEDS: citalopram 20 mg Tablet PO (08:42)
[2024-10-26] MEDS: amiodarone 200 mg Tablet PO (08:42)
[2024-10-26] MEDS: docusate sodium 100 mg Capsule PO (08:42)
[2024-10-26] MEDS: isosorbide mononitrate ER 30 mg Tablet PO (08:42)
[2024-10-26] MEDS: pantoprazole DR 40 mg Tablet PO (08:43)
--- NOTE | 2024-10-26 12:55 | P.PN_ITS ---
Subjective 2 Subjective: This is a 79-year-old male with a past medical history of of CKD, history of dialysis, permacath removed, anemia, CHF, atrial fibrillation not on anticoagulation due to anemia BPH, cardiomyopathy EF 40%. He was recently admitted here on October 03, 2024 with acute systolic CHF exacerbation, bilateral pleural effusions, s/p left thoracentesis, 900 cc removed, transudative pleural effusion. He was noted to have significant anemia with hemoglobin down to 5.8. He underwent EGD which had findings of gastritis. consideration of colonoscopy in 2 weeks as outpatient. He presented back to the emergency room on October 24, 2024 with chief complaints of chest pressure and dyspnea on exertion. Currently reports he is having trouble taking a deep breath. Every time he coughs he appears to have a left- sided pleuritic chest pain. Patient is currently in a senior care. He has been noticing increased sputum production. No fever or chills. His initial troponin was noted to be at 159, 2-hour troponin at 151. BNP grossly elevated at 24,000. CT of the chest showed bilateral pleural effusion, more on the left side. Medications: Reviewed: Yes Vitals/I&O/Wt Last Vital Signs Temp 97.8 F 10/26/24 08:00 Pulse 90 10/26/24 08:55 Resp 16 10/26/24 08:55 BP 146/66 10/26/24 08:00 Pulse Ox 99 10/26/24 08:55 O2 Del Method Nasal Cannula 10/26/24 08:55 O2 Flow Rate 2 10/26/24 08:55 10/25/24 10/26/24 10/26/24 22:59 06:59 14:59 Intake Total 240 / 600 Output Total 1900 / 2550 Balance 240 / -50 -1900 / -1950 Weight last 48 hrs Weight 87.572 kg Weight 87.146 kg Weight 86.682 kg Weight 86.682 kg Weight 87.543 kg Physical Exam 2 Narrative: General: No acute distress, AO x3 HEENT: PERRLA, pupils bilaterally equal and reactive, pallors not present Chest: Normal vesicular breath sounds, no added sounds, equal good air entry bilaterally CVS: S1-S2 regular, no murmurs, no tachycardia, no gallops, no rubs Abdomen: Soft, nontender, no organomegaly, bowel sounds present Neuro: No focal deficits, no facial deformity, AO x3, power 5/5 in all limbs Urinary Catheter Management: Conteh: Cath Placed During This Visit: yes Reason for Continuing Indwelling Catheter: Accurate Measurement of Urinary Output in Critically Ill Patients Urinary Catheter Date of Insertion: 10/25/24 Urinary Catheter Time of Insertion: 10:49 Data 10/26/24 02:38 10/26/24 02:38 A&P Assessment and plan (1) Chest pain: Qualifiers: Chest pain type: unspecified Qualified Code(s): R07.9 - Chest pain, unspecified (2) Heart failure with reduced ejection fraction: (3) Acute exacerbation of chronic heart failure: (4) Bilateral pleural effusion: (5) End stage renal disease: (6) Atrial fibrillation with RVR: (7) HTN (hypertension): (8) Acute respiratory distress: Plan 79-year-old male admitted for acute exacerbation of heart failure with respiratory distress. Continue close inpatient monitoring. Has had good diuresis out over the last 24 hours. Symptomatically he appears to be doing better. He did have some issues with his Conteh, and this was replaced. His output was not as good overnight, but has picked back up this morning. His lung exam has improved significantly. Continue current diuresis regimen, and will monitor I's and O's regularly.Continue to check his labs daily. Continue RAAT and O2 protocol. Continue IV Lasix 60 mg twice daily with potassium replacement. Once he is over this acute exacerbation, I will likely repeat an echo and see how his heart function is. Will restart his home medications today. He seems to be much more stable. Blood pressure has picked up slightly as well as heart rate. Will restart his amiodarone. Will continue his isosorbide for now to help with his blood pressure. Heparin for VTE prophylaxis. Protonix for GI prophylaxis. Repeat a.m. labs. Code Status: Full IVF: None DVT PPx: Heparin GI PPx: Protonix ABx: None Diet: Cardiac, low sodium, 1200cc fluid restriction Discharge plan: Back to SNF when stable. October 26, 2024 79-year-old male admitted to the hospital with left-sided chest pain. Found to have elevated troponins at 151, however lower than previous range of 300 and August 2024, this previously ranging between 70-1 30 between April to July 2024. Unlikely to be ACS given chronically elevated numbers. Last echocardiogram from June 2024 showed an LVEF of 40 to 45% with moderate to severe MR. This was new compared to 2022. Patient was evaluated outpatient by cardiology on October 19, 2024. Unable to see recommendations as noted still in draft. He has a left-sided pleural effusion, status post recent thoracentesis 1 month ago.The effusion does appear to be persistent at least since June 2024 at which time he had another thoracentesis. Pleural fluid analysis has revealed a transudative effusion on previous admissions. From June 2024 benign mesothelial cells were noted on pathology. From 2022 again some mesothelial cells and occasional histiocytes were noted. No overt malignancy has been identified to date. Will likely need pulmonology follow up at discharge for recurrent pleural effusion. For now plan to continue with IV diuresis. Urine output 1900 cc last 24 hours, net -16 L. Repeat chest x-ray with a.m. labs. If increasing effusion may need another thoracentesis this admission. PDMP PDMP Reviewed: Not Reviewed Attestations 2 Medical Necessity Statement*: continued need for iv diuresis, rept X ray keira Coding Level of Care Code Acute Code for Chg Fwd Diagnoses Chest pain R07.9 Chest pain type: unspecified Heart failure with reduced ejection fraction I50.20 Acute exacerbation of chronic heart failure I50.9 Bilateral pleural effusion J90 End stage renal disease N18.6 Atrial fibrillation with RVR I48.91 HTN (hypertension) I10 Acute respiratory distress R06.03
--- NOTE | 2024-10-26 12:57 | PC.NURSE ---
Per [facility] support the [facility] will call the patient directly to schedule an follow-up appointment.
[2024-10-26] MEDS: HYDROcodone-acetaminophen 5-325 mg Tablet 1 TAB PO (16:41)
[2024-10-26] MEDS: ALPRAZolam 0.5 mg Tablet PO (20:09)
[2024-10-26] MEDS: trazodone 50 mg Tablet PO (20:09)
[2024-10-27] VITALS (9 sets, daily range): BP systolic 121–144; BP diastolic 64–89; PULSE 88–97; RESP 13–20; TEMP 36.4–37.2; O2SAT 94–98
[2024-10-27] MEDS: heparin 5,000 unit/mL INJ 1 mL 5000 UNIT SUBCUT ×2 (01:53→13:26)
--- NOTE | 2024-10-27 04:00 | XRR_ITS ---
PROCEDURE INFORMATION: Exam: XR Chest Exam date and time: 10/27/2024 2:46 AM Age: 79 years old Clinical indication: Shortness of breath; Additional info: Follow up pleural effusion TECHNIQUE: Imaging protocol: Radiologic exam of the chest. Views: 1 view. COMPARISON: CT chest con [id number] 24/10/2024 07:42 FINDINGS: Lungs: Low lung volumes. See Pleural spaces findings. Pleural spaces: Persistent small bilateral pleural effusions with adjacent atelectasis, [id number]. Pneumonia should be considered in the adequate clinical setting. No pneumothorax. Heart/Mediastinum: Stable cardiomediastinal silhouette. Bones/joints: Old healed fracture deformities are again seen in the right ribcage. Right shoulder arthroplasty hardware and degenerative changes of the left shoulder joint re-identified. XR/XR chest 1V portable [id number] IMPRESSION: Persistent small bilateral pleural effusions with adjacent atelectasis, [id number]. Pneumonia should be considered in the adequate clinical setting.
[2024-10-27 04:10] LABS: Basophils % 0.1 %; Eosinophils # 0.2 10^3/uL (0.0-0.8); Eosinophils % 2.9 %; Hematocrit 25.9 % (37-53); Lymphocytes # 2.7 10^3/uL (0.8-4.8); Lymphocytes % 34.8 %; Mean Corpuscular HGB Conc 30.5 g/dL (30-55); Mean Corpuscular Volume 91.8 fl (82-101); Monocytes # 0.7 10^3/uL (0.2-0.9); Monocytes % 9.3 %; Neutrophils # 4.11 10^3/uL (1.8-7.7); Neutrophils % 52.4 %; Nucleated Red Blood Cells % 0 %; Platelet Count 432 10^3/cmm (157-399); Red Blood Count 2.82 10^6/uL (3.85-5.65); Red Cell Distribution Width 14.2 % (12.1-15.1); White Blood Count 7.85 10^3/uL (3.29-11.43)
[2024-10-27 04:42] LABS: Anion Gap 17.3 (5-19); Blood Urea Nitrogen 58 mg/dL (8-23); Carbon Dioxide 20 mmol/L (22-29); Chloride 99 mmol/L (98-107); Creatinine Clr Calc Pharmacy 11.9503; Glucose 95 mg/dL (65-115); Osmolality Calculated 290 mOsm/kg (285-295); Potassium 4.3 mmol/L (3.5-5.1); Sodium 132 mmol/L (136-145)
[2024-10-27] MEDS: citalopram 20 mg Tablet PO (08:19)
[2024-10-27] MEDS: potassium chloride ER 20 mEq Tablet PO ×2 (08:19→16:26)
[2024-10-27] MEDS: docusate sodium 100 mg Capsule PO (08:19)
[2024-10-27] MEDS: pantoprazole DR 40 mg Tablet PO (08:19)
[2024-10-27] MEDS: FUROsemide 10 mg/mL SDV 10mL 60 MG IVP (08:19)
[2024-10-27] MEDS: amiodarone 200 mg Tablet PO (08:19)
[2024-10-27] MEDS: isosorbide mononitrate ER 30 mg Tablet PO (08:19)
[2024-10-27] MEDS: lanolin oint 7 gm 1 APPLIC TOPICAL (08:28)
--- NOTE | 2024-10-27 12:57 | PC.SOCIAL ---
IMM updated Updated pt on IMM. No questions voiced. Provided pt a copy. Initialed, dated, & timed copy in chart.
--- NOTE | 2024-10-27 15:11 | P.PN_ITS ---
Subjective 2 Subjective: Diuresed 2000 cc. Net -1 L. Chest x-ray repeated, stable pleural effusion. Medications: Reviewed: Yes Vitals/I&O/Wt Last Vital Signs Temp 97.6 F 10/27/24 11:39 Pulse 94 10/27/24 11:39 Resp 17 10/27/24 11:39 BP 124/64 10/27/24 11:39 Pulse Ox 94 10/27/24 11:39 O2 Del Method Room Air 10/27/24 11:39 O2 Flow Rate 2 10/26/24 08:55 10/27/24 10/27/24 10/27/24 06:59 14:59 22:59 Intake Total 480 / 480 Output Total 1200 / 2000 Balance -1200 / -1550 480 / 480 Weight last 48 hrs Weight 91.354 kg Weight 87.572 kg Weight 87.146 kg Physical Exam 2 Narrative: General: No acute distress, AO x3 HEENT: PERRLA, pupils bilaterally equal and reactive, pallors not present Chest: Normal vesicular breath sounds, no added sounds, equal good air entry bilaterally CVS: S1-S2 regular, no murmurs, no tachycardia, no gallops, no rubs Abdomen: Soft, nontender, no organomegaly, bowel sounds present Neuro: No focal deficits, no facial deformity, AO x3, power 5/5 in all limbs Urinary Catheter Management: Conteh: Cath Placed During This Visit: yes Reason for Continuing Indwelling Catheter: Accurate Measurement of Urinary Output in Critically Ill Patients Urinary Catheter Date of Insertion: 10/25/24 Urinary Catheter Time of Insertion: 10:49 Data 10/27/24 04:01 10/27/24 04:01 A&P Assessment and plan (1) Chest pain: Qualifiers: Chest pain type: unspecified Qualified Code(s): R07.9 - Chest pain, unspecified (2) Heart failure with reduced ejection fraction: (3) Acute exacerbation of chronic heart failure: (4) Bilateral pleural effusion: (5) End stage renal disease: (6) Atrial fibrillation with RVR: (7) HTN (hypertension): (8) Acute respiratory distress: Plan 79-year-old male admitted for acute exacerbation of heart failure with respiratory distress. Continue close inpatient monitoring. Has had good diuresis out over the last 24 hours. Symptomatically he appears to be doing better. He did have some issues with his Conteh, and this was replaced. His output was not as good overnight, but has picked back up this morning. His lung exam has improved significantly. Continue current diuresis regimen, and will monitor I's and O's regularly.Continue to check his labs daily. Continue RAAT and O2 protocol. Continue IV Lasix 60 mg twice daily with potassium replacement. Once he is over this acute exacerbation, I will likely repeat an echo and see how his heart function is. Will restart his home medications today. He seems to be much more stable. Blood pressure has picked up slightly as well as heart rate. Will restart his amiodarone. Will continue his isosorbide for now to help with his blood pressure. Heparin for VTE prophylaxis. Protonix for GI prophylaxis. Repeat a.m. labs. Code Status: Full IVF: None DVT PPx: Heparin GI PPx: Protonix ABx: None Diet: Cardiac, low sodium, 1200cc fluid restriction Discharge plan: Back to SNF when stable. October 26, 2024 79-year-old male admitted to the hospital with left-sided chest pain. Found to have elevated troponins at 151, however lower than previous range of 300 and August 2024, this previously ranging between 70-1 30 between April to July 2024. Unlikely to be ACS given chronically elevated numbers. Last echocardiogram from June 2024 showed an LVEF of 40 to 45% with moderate to severe MR. This was new compared to 2022. Patient was evaluated outpatient by cardiology on October 19, 2024. Unable to see recommendations as noted still in draft. He has a left-sided pleural effusion, status post recent thoracentesis 1 month ago.The effusion does appear to be persistent at least since June 2024 at which time he had another thoracentesis. Pleural fluid analysis has revealed a transudative effusion on previous admissions. From June 2024 benign mesothelial cells were noted on pathology. From 2022 again some mesothelial cells and occasional histiocytes were noted. No overt malignancy has been identified to date. Will likely need pulmonology follow up at discharge for recurrent pleural effusion. For now plan to continue with IV diuresis. Urine output 1900 cc last 24 hours, net -16 L. Repeat chest x-ray with a.m. labs. If increasing effusion may need another thoracentesis this admission. October 27, 2024 Patient feels better today symptomatically. Lower extremity edema is much improved. Net -1000 cc last 24 hours. Hemoglobin at 7.9 today. Closely monitor. No noted melena or hematemesis. Creatinine is 5.5, at recent baseline. Chest x-ray showing bilateral pleural effusions unchanged overall. Small effusions currently. Patient is not requiring any supplemental oxygen at this current time. States his chest pain is a little better today. Will hold off on any thoracentesis for now given that patient is minimally symptomatic. I am concerned that patient has had multiple thoracentesis performed with reaccumulation of his left-sided effusion. Will provide referral to pulmonology as an outpatient to see if patient may be a candidate for pleurodesis versus placement of a Pleurx catheter. Recommended follow-up with cardiology as overall effusion is appearing to be transudative, likely a combination of CHF and renal failure. For today we will plan to transition IV to oral diuretics.Transition IV to oral diuretics. Holding off on thoracentesis. anticipate discharge in the upcoming 24 hours if remains stable. PDMP PDMP Reviewed: Not Reviewed Attestations 2 Medical Necessity Statement*: Transition IV to oral diuretics. Holding off on thoracentesis. anticipate discharge in the upcoming 24 hours if remains stable. Coding Level of Care Code [facility] Chest pain R07.9 Chest pain type: unspecified Heart failure with reduced ejection fraction I50.20 Acute exacerbation of chronic heart failure I50.9 Bilateral pleural effusion J90 End stage renal disease N18.6 Atrial fibrillation with RVR I48.91 HTN (hypertension) I10 Acute respiratory distress R06.03
[2024-10-27] MEDS: FUROsemide 40 mg Tablet PO (16:26)
[2024-10-27] MEDS: trazodone 50 mg Tablet PO (18:16)
[2024-10-27] MEDS: ALPRAZolam 0.5 mg Tablet PO (18:16)
[2024-10-28] VITALS: BP 141/78; PULSE 91; RESP 21; TEMP 36.7; O2SAT 97
[2024-10-28] MEDS: heparin 5,000 unit/mL INJ 1 mL 5000 UNIT SUBCUT (00:30)
[2024-10-28 04:00] VITALS: BP 147/78; PULSE 85; RESP 16; O2SAT 96
[2024-10-28 07:22] VITALS: BP 144/80; PULSE 93; RESP 18; TEMP 36.6; O2SAT 97
[2024-10-28 08:19] VITALS: PULSE 88; RESP 16; O2SAT 97
[2024-10-28] MEDS: pantoprazole DR 40 mg Tablet PO (09:14)
[2024-10-28] MEDS: potassium chloride ER 20 mEq Tablet PO (09:14)
[2024-10-28] MEDS: isosorbide mononitrate ER 30 mg Tablet PO (09:14)
[2024-10-28] MEDS: FUROsemide 40 mg Tablet PO (09:15)
[2024-10-28] MEDS: amiodarone 200 mg Tablet PO (09:15)
[2024-10-28] MEDS: citalopram 20 mg Tablet PO (09:15)
--- NOTE | 2024-10-28 11:01 | P.DS_ITS ---
Discharge Providers Date of Admission: 10/24/24 12:24 Date of Discharge: October 28, 2024 Attending Provider at Admission: Gil Baker DO Attending Provider at Discharge: Rina Delcid MD Primary Care Provider: Ramiro Villavicencio MD Diagnoses at Discharge Discharge Diagnosis (1) Chest pain: Status: Acute Qualifiers: Chest pain type: unspecified Qualified Code(s): R07.9 - Chest pain, unspecified (2) Heart failure with reduced ejection fraction: Status: Acute (3) Acute exacerbation of chronic heart failure: Status: Acute (4) Bilateral pleural effusion: Status: Acute (5) End stage renal disease: Status: Acute (6) Atrial fibrillation with RVR: Status: Acute (7) HTN (hypertension): Status: Acute (8) Acute respiratory distress: Status: Acute Reason for Visit Reason for Visit: CP Hospital Course Hospital Course Jhon Marcos is a 79 year old male with past medical history of systolic heart failure with EF of 45%, CKD stage V, atrial fibrillation, presented to the ER with progressive shortness of breath, chest pain, and weakness. Her comorbidities include CKD with baseline creatinine between 4.5-5.5 for which she was on hemodialysis transiently in the past has since been discontinued.BNP 24,592, initial troponin 159, 2-hour troponin 151, chest x-ray and chest CT both show bilateral pleural effusions left greater than right. Overall his troponin delta were downtrending, previous numbers were close to 300, unlikely to be consistent with type II NE versus stress response versus CKD rather than ACS. He started diuresis with Lasix 60 mg IV and responded well. He is overall net negative by 6 L at the time of discharge. He is currently saturating 94% on room air. Left-sided chest discomfort is much improved. Review of chart shows that patient has a recurrent left-sided pleural effusion. Most recently he received thoracentesis 1 month ago. The effusion does appear to be persistent at least since June 2024 at which time he had another thoracentesis. Pleural fluid analysis has revealed a transudative effusion on previous admissions. From June 2024 benign mesothelial cells were noted on pathology. From 2022 again some mesothelial cells and occasional histiocytes were noted. No overt malignancy has been identified to date. Patient will benefit from pulmonology follow up at discharge for recurrent pleural effusion. ? candidate for pleurodesis vs pleurex. Will hold off on any thoracentesis for now given that patient is minimally symptomatic. Risks do not outweigh benefits at this time. Patient has been transitioned to oral Lasix at the time of discharge. Dose increased to 40 mg twice daily at the time of discharge. Physical Exam Narrative: General: No acute distress, AO x3 HEENT: PERRLA, pupils bilaterally equal and reactive, pallors not present Chest: Normal vesicular breath sounds, no added sounds, equal good air entry bilaterally CVS: S1-S2 regular, no murmurs, no tachycardia, no gallops, no rubs Abdomen: Soft, nontender, no organomegaly, bowel sounds present Neuro: No focal deficits, no facial deformity, AO x3, power 5/5 in all limbs Urinary Catheter Management: Conteh: Cath Placed During This Visit: yes Reason for Continuing Indwelling Catheter: Acute Urinary Retention or Obstruction Urinary Catheter Date of Insertion: 10/25/24 Urinary Catheter Time of Insertion: 10:49 Discharge Data Studies Completed and Pending Completed Studies During Hospitalization Category Date Time Status CT chest [facility] [id number] Stat Cat Scan 10/24/24 06:56 Completed CXRP [XR chest 1V portable [id number]] AM LABS Exams 10/27/24 04:00 Completed XR chest 1V portable [id number] Stat Exams 10/24/24 05:53 Completed Radiology Impressions Chest CT 10/24/24 06:56 IMPRESSION: Moderate bilateral pleural effusions with lower lobe consolidation/collapse, more on the left side. Chest X-Ray 10/27/24 04:00 IMPRESSION: Persistent small bilateral pleural effusions with adjacent atelectasis, [id number]. Pneumonia should be considered in the adequate clinical setting. Laboratory Results WBC 7.85 10^3/uL (3.29-11.43) 10/27/24 04:01 RBC 2.82 10^6/uL (3.85-5.65) L 10/27/24 04:01 Hgb 7.90 g/dL (11.27-16.99) L 10/27/24 04:01 Hct 25.9 % (37-53) L 10/27/24 04:01 MCV 91.8 fl (82-101) 10/27/24 04:01 MCH 28.0 pg (27-33) 10/27/24 04:01 MCHC 30.5 g/dL (30-55) 10/27/24 04:01 RDW 14.2 % (12.1-15.1) 10/27/24 04:01 Plt Count 432 10^3/cmm (157-399) H 10/27/24 04:01 MPV 9.0 fL (7.4-10.4) 10/27/24 04:01 Neut % (Auto) 52.4 % 10/27/24 04:01 Lymph % (Auto) 34.8 % 10/27/24 04:01 [place] % (Auto) 9.3 % 10/27/24 04:01 Eos % (Auto) 2.9 % 10/27/24 04:01 Baso % (Auto) 0.1 % 10/27/24 04:01 Neut # (Auto) 4.11 10^3/uL (1.8-7.7) 10/27/24 04:01 Lymph # (Auto) 2.7 10^3/uL (0.8-4.8) 10/27/24 04:01 [place] # (Auto) 0.7 10^3/uL (0.2-0.9) 10/27/24 04:01 Eos # (Auto) 0.2 10^3/uL (0.0-0.8) 10/27/24 04:01 Baso # (Auto) 0.0 10^3/uL (0.0-0.1) 10/27/24 04:01 Nucleated RBC % (auto) 0 % 10/27/24 04:01 Nucleated RBCs # 0.0 /100WBC 10/27/24 04:01 Sodium 132 mmol/L (136-145) L 10/27/24 04:01 Potassium 4.3 mmol/L (3.5-5.1) 10/27/24 04:01 Chloride 99 mmol/L (98-107) 10/27/24 04:01 Carbon Dioxide 20 mmol/L (22-29) L 10/27/24 04:01 Anion Gap 17.3 (5-19) 10/27/24 04:01 BUN 58 mg/dL (8-23) H 10/27/24 04:01 Creatinine 5.5 mg/dL (0.7-1.2) H 10/27/24 04:01 GFR Calculation Not Reportable 10/27/24 04:01 Glucose 95 mg/dL (65-115) 10/27/24 04:01 Calculated Osmolality 290 mOsm/kg (285-295) 10/27/24 04:01 Calcium 9.0 mg/dL (8.5-10.5) 10/27/24 04:01 Phosphorus 3.4 mg/dL (2.5-4.5) 10/24/24 05:50 Magnesium 1.9 mg/dL (1.7-2.3) 10/24/24 05:50 Total Bilirubin 0.3 mg/dL (0.15-1.2) 10/24/24 05:50 AST 5 U/L (0-40) 10/24/24 05:50 ALT 7 U/L (0-41) 10/24/24 05:50 Alkaline Phosphatase 104 U/L (40-130) 10/24/24 05:50 Troponin T Baseline 159 ng/L (0-15) H* 10/24/24 05:50 Troponin T 120 Minute 151.4 ng/L (0-15) H 10/24/24 08:21 Delta Troponin T -7.6 ABS# (0-10) L 10/24/24 08:21 Troponin T Hi Sens 6Hr 136.7 ng/L (0-15) H 10/24/24 11:58 Troponin T Hi Sens 6Hr Delta -22.3 ng/L (0-12) L 10/24/24 11:58 NT-Pro-B Natriuret Pep 34459 pg/mL (0-450) H 10/24/24 05:50 Total Protein 7.1 g/dL (6.6-8.7) 10/24/24 05:50 Albumin 4.3 g/dL (3.5-5.2) 10/24/24 05:50 Globulin 2.8 g/dL (1.3-4.6) 10/24/24 05:50 TSH 4.72 uIU/mL (0.27-4.20) H 10/25/24 02:47 Influenza A (PCR) Negative (Negative) 10/24/24 07:54 Influenza Type B (PCR) Negative (Negative) 10/24/24 07:54 RSV (PCR) Negative (Negative) 10/24/24 07:54 SARS-CoV-2 (PCR) Negative (Negative) 10/24/24 07:54 Vitals Last Vital Signs Temp 97.8 F 10/28/24 07:22 Pulse 88 10/28/24 08:19 Resp 16 10/28/24 08:19 BP 144/80 10/28/24 07:22 Pulse Ox 97 10/28/24 08:19 O2 Del Method Room Air 10/28/24 08:19 O2 Flow Rate 2 10/26/24 08:55 Discharge Plan Discharge Patient Disposition: Xfer SNF Condition: Stable Prescriptions: Continued alprazolam 0.5 mg tablet 0.5 mg PO Q8H PRN (Reason: Anxiety) isosorbide mononitrate 30 mg tablet extended release 24 hr 30 mg PO DAILY Qty: 90 3RF nitroglycerin 0.4 mg tablet, sublingual 0.4 mg sublingual Q5M PRN (Reason: chest pain) Qty: 20 3RF Rx Instructions: do not exceed 3 doses per episode bisacodyl 10 mg Suppository 10 mg AR DAILY PRN (Reason: Constipation) diltiazem HCl 120 mg Tablet 240 mg PO DAILY dextromethorphan-guaifenesin [Robitussin Cough-Chest Andrzej DM] 5-100 mg/5 mL Liquid 10 ml PO Q4H PRN (Reason: Cough) amiodarone [Pacerone] 200 mg tablet 200 mg PO DAILY albuterol sulfate [Ventolin HFA] 90 mcg/actuation HFA aerosol inhaler 1 inh inhalation Q6H PRN (Reason: shortness of breath or wheezing) Fleet Enema 19-7 gram/118 mL Enema 118 ml AR DAILY PRN (Reason: Constipation) cyanocobalamin (vitamin B-12) 1,000 mcg/mL Solution 1,000 mcg SUBCUT DAILY albuterol sulfate 2.5 mg /3 mL (0.083 %) solution for nebulization 2.5 mg inhalation Q4H PRN (Reason: SOB) trazodone 50 mg tablet 50 mg PO BEDTIME artifi.tears(hypromellose)(PF) 1.7 % Drops With Applicator 1 drp OPHTHALMIC (EYE) BID PRN (Reason: Dry Eyes) ondansetron HCl 4 mg tablet 4 mg PO Q4H PRN (Reason: Nausea And Vomiting) acetaminophen-codeine 300-30 mg tablet 1 - 2 tab PO Q4H PRN (Reason: Pain) docusate sodium [Colace] 100 mg Capsule 100 mg PO DAILY citalopram 20 mg tablet 20 mg PO DAILY sodium bicarbonate 650 mg Tablet 650 mg PO BID 30 Days Qty: 60 3RF pantoprazole 40 mg tablet,delayed release (DR/EC) 40 mg PO DAILY Qty: 60 0RF Changed furosemide [Lasix] 40 mg tablet 40 mg PO BIDWM 30 Days Qty: 60 0RF Discharge Orders: Discharge Order (Routine); Ordered 10/28/24 Ordered By: Rina Delcid Referrals: [facility] [Outside] [facility] [Outside] - 2 weeks (recurrent left pleural effusion needing thoracentesis Records have been faxed to office, they will call patient to schedule appointment) Ramiro Villavicencio MD [Primary Care Provider] - 1 week Patient Instructions: Chest Pain (ED), Chronic Kidney Disease (ED), Pleural Effusion Discharge Attestations Time Spent in Discharge Care*: greater than 30 min Status at Discharge: Cognitive status at discharge: cognitively intact , Behavioral status at discharge: cooperative , Quality Metrics Clinical Quality Measures [ No reported AMI, CVA or VTE this stay] Coding Level of Care Code Acute Code for [facility] Diagnoses Chest pain R07.9 Chest pain type: unspecified Heart failure with reduced ejection fraction I50.20 Acute exacerbation of chronic heart failure I50.9 Bilateral pleural effusion J90 End stage renal disease N18.6 Atrial fibrillation with RVR I48.91 HTN (hypertension) I10 Acute respiratory distress R06.03
[2024-10-28 12:00] VITALS: BP 130/76; PULSE 88; RESP 19; TEMP 36.6; O2SAT 97
--- NOTE | 2024-10-28 12:05 | PC.NURSE ---
Verified with Dr Delcid to leave patel catheter in place at discharge. Patient reports it is a chronic patel.
--- NOTE | 2024-10-28 13:35 | PC.NURSE ---
Patient to return to [facility]. Report called to KAYLA Freire. Patient to discharge with patel catheter in place per Dr Delcid.
[2024-10-28 14:00] VITALS: PULSE 0
--- NOTE | 2024-10-28 16:02 | PC.NURSE ---
Patient taken by wheelchair to private vehicle to return to [facility].
== END 2024-10-28 16:03 | disposition skilled nursing facility (03) | DRG 291 ==
LOC: ER 13:27 → CSU 13:44
PROVIDERS: Emergency Medicine; Admitting Provider Family Medicine; Emergency Provider Emergency Medicine; PCP Family Medicine; Visit Provider Student in an Organized Health Care Education/Training Program
DX: I13.2 Hypertensive heart and chronic kidney disease with heart failure and with stage 5 chronic kidney disease, or end stage renal disease (principal); I50.23 Acute on chronic systolic (congestive) heart failure; N18.5 Chronic kidney disease, stage 5; J82.83 Eosinophilic asthma; E13.22 Other specified diabetes mellitus with diabetic chronic kidney disease; I48.91 Unspecified atrial fibrillation; R06.03 Acute respiratory distress; I69.320 Aphasia following cerebral infarction; I25.2 Old myocardial infarction; Z86.718 Personal history of other venous thrombosis and embolism; G47.33 Obstructive sleep apnea (adult) (pediatric); N40.0 Benign prostatic hyperplasia without lower urinary tract symptoms; I25.10 Atherosclerotic heart disease of native coronary artery without angina pectoris; E78.5 Hyperlipidemia, unspecified; D63.1 Anemia in chronic kidney disease
CPT/HCPCS: 36415; 71045; 71250; 80048; 80053; 83735; 83880; 84100; 84443; 84484; 85025; 87637; 93005; 94640; 94664; 96372; 96374; 96376; 97116; 97161; 97165; 97530; 99285; J1644; J1938; J1940; J7613; J9999

== ENCOUNTER 2024-11-10 08:10 | Outpatient (CLI) | payer MEDICARE, MEDICAID, SELFPAY ==
[2024-11-10 08:22] VITALS: BMI 26.9
--- NOTE | 2024-11-10 08:40 | ECG_ITS ---
[facility] Test Date: 2024-11-10 Pat Name: Jhon Marcos Department: Room: Gender: Male [employer]: : 1945 Requested By: Olive Vanegas Order Number: [id number] Reading MD: OLIVE VANEGAS Interpretive Statements Lung unchanged pre/post procedure; Intraprocedure shortess of breath; Symptoms resoled by discharge NOTE: Please note that this is the electrocardiogram portion of the Lexiscan/Sestamibi stress test. The perfusion scan will be documented separately. DATA: Baseline heart rate was 87 beats per minute. Baseline blood pressure was 142/56 millimeters of mercury. Target heart rate was 139. Maximum heart rate achieved was 95. which was 68% of the predicted target heart rate. Maximum blood pressure was 142/66 millimeters of mercury. The reason for ending the test was completion of the protocol. The patient did not experience any symptoms. ELECTROCARDIOGRAM: BASELINE: Sinus rhythm. Left l axis. Possible old anterolateral wall myocardial infarction EXERCISE: After Lexiscan injection, no ST-T changes suggestive of ischemic noted. No arrhythmia noted. CONCLUSION: Please note due to baseline abnormality of the EKG specificity and sensitivity of the EKG portion of LexiScan MIBI stress test will be low 1. EKG not suggestive of ischemia 2. Lexiscan injection unremarkable. 3. Perfusion scan will be documented separately. Electronically Signed On 11-30-2024 18:15:56 CDT by OLIVE VANEGAS [email or web address]
--- NOTE | 2024-11-10 08:41 | NMCV_ITS ---
NM jr perf SPECT r/s* [id number] Jhon Marcos Age: 79 Gender: M : 1945 Exam Date: 11/10/2024 09:39 Ordering Phys: Olive Vanegas MD ([email or web address]) Technologist: PATTIE Bruno Exam Location: [facility] Indications: cp STRESS TEST Please see separate stress test report in [facility] for full findings IMAGE PROTOCOL Rest/Stress 1 Lexiscan Day Radiopharmaceutical Dose (mCi) Administration Site Administered by Rest: Tc-99m 10.5 IV Selena Shaw, FARM LOAN REPRESENTATIVE Sestamibi Stress:Tc-99m 32.4 IV Selena Chapmangle, FARM LOAN REPRESENTATIVE Sestamibi Rest: 10-Nov-2024 60 Discovery 630 Stress: 10-Nov-2024 30 Discovery 630 0.4mg Lexiscan. Images obtained in supine and prone position. Supine position only as patient was unable to lay prone. SPECT RESULTS Technical Quality: Good Raw Data Analysis: Normal Image Corrections: No attenuation or motion correction applied Summed Stress Score: 10 Summed Rest Score: 14 Summed Difference Score: 0 PERFUSION FINDINGS Large area of fixed perfusion defect noted in basal to to distal inferior and inferolateral wall suggestive of old myocardial infarction vs scarring , no ischemia noted. FUNCTIONAL RESULTS (calculated via Gated SPECT) Stress Image LV EF (%): 45 Stress EDV (mL):196 TID: 1.04 Stress ESV (mL):108 FUNCTIONAL FINDINGS: basal to distal inferior wall akinesis IMPRESSIONS Large area of fixed perfusion defect noted in basal to to distal inferior and inferolateral wall suggestive of old myocardial infarction vs scarring , no ischemia noted. Olive Vanegas MD (Electronically Signed) Final Date: 11 November 2024 12:26 S
[2024-11-10] MEDS: regadenoson 0.4 Mg/5 ml Syringe IVP (10:06)
[2024-11-10 10:25] VITALS: BP 136/62; PULSE 90
== END 2024-11-10 08:11 | disposition home or self-care (01) ==
LOC: CDL 08:13
PROVIDERS: PCP Family Medicine; Visit Provider Internal Medicine Cardiovascular Disease
DX: R07.9 Chest pain, unspecified (principal); R93.1 Abnormal findings on diagnostic imaging of heart and coronary circulation
CPT/HCPCS: 36415; 78452; 93017; 96374; A9500; J2785

== ENCOUNTER 2024-12-07 06:49 | Outpatient (CLI) | payer MEDICARE, MEDICAID, SELFPAY ==
--- NOTE | 2024-12-07 07:00 | USCV_ITS ---
Jhon Marcos Age: 79 Gender: M : 1945 Exam Date: 12/07/2024 07:02 Ordering Phys: Olive Vanegas MD ([email or web address]) Technologist: MARY Exam Location: [facility] Indication: SoB, Cp BP: 120 / 80 HR: 76 Rhythm: Sinus Technical Quality: Adequate MEASUREMENTS (Male / Female) Normal Values 2D ECHO LV Diastolic Diameter PLAX 5.7 cm 4.2 - 5.9 / 3.9 - 5.3 cm IVS Diastolic Thickness 1.2 cm 0.6 - 1.0 / 0.6 - 0.9 cm IVS Systolic Thickness 1.5 cm LVPW Diastolic Thickness 1.2 cm 0.6 - 1.0 / 0.6 - 0.9 cm LVPW Systolic Thickness 1.8 cm LVOT Diameter 1.9 cm LV Ejection Fraction 2D Teich 44.8 % LV Ejection Fraction MOD 4C 43.9 % LV Ejection Fraction MOD 2C 39.4 % LV Ejection Fraction 2C AL 38.8 % LA Diameter 4.0 cm RA Systolic Volume 4C AL 75.3 ml RA Systolic Volume 4C MOD 72.3 ml Aorta at Sinotubular Diameter 3.2 cm IVC Diameter 2.3 cm M-MODE LA Ao Ratio MM 1.0 AV Cusp Separation MM 1.3 cm DOPPLER AV Peak Velocity 156.0 cm/s LVOT Peak Velocity 94.0 cm/s AV Area Cont Eq vti 1.9 cm squared AV Area Cont Eq pk 1.8 cm squared MV Peak Velocity 116.0 cm/s MV Area PHT 5.1 cm squared Mitral E to A Ratio 1.0 TR Peak Velocity 88.0 cm/s TR Peak Gradient 3.1 mmHg TV Peak E Velocity 82.0 cm/s PV Peak Velocity 130.0 cm/s FINDINGS Left Ventricle Normal left ventricular cavity size. Moderately decreased left ventricular systolic function. Left ventricular ejection fraction is estimated at 40-45 %. Grade II/IV diastolic dysfunction, moderately elevated filling pressures. Right Ventricle The right ventricle is normal in size and function. Right Atrium The right atrium is normal in size. Left Atrium The left atrium is normal in size. Mitral Valve Moderately thickened mitral valve. Moderate mitral annular calcification. No mitral valve stenosis. Moderate mitral valve regurgitation. Aortic Valve Mild aortic valve calcification. No aortic valve stenosis. Trace aortic valve regurgitation. Tricuspid Valve Structurally normal tricuspid valve without significant stenosis or regurgitation. Pulmonary artery systolic pressure is normal. Pulmonic Valve Structurally normal pulmonic valve without significant stenosis. There is no pulmonic regurgitation. Pericardium Normal pericardium without effusion. Aorta Normal ascending aorta dimension. IVC The inferior vena cava appears normal. CONCLUSIONS Normal left ventricular cavity size. Moderately decreased left ventricular systolic function. Left ventricular ejection fraction is estimated at 40-45 %. Grade II/IV diastolic dysfunction, moderately elevated filling pressures. Moderately thickened mitral valve. Moderate mitral annular calcification. No mitral valve stenosis. Moderate mitral valve regurgitation. Mild aortic valve calcification. No aortic valve stenosis. Trace aortic valve regurgitation. There is no pericardial effusion. Right atrial pressure is around 5 mm of mercury. Olive Vanegas MD (Electronically Signed) Final Date: 18 Dec 2024 16:01 S
== END 2024-12-07 06:50 | disposition home or self-care (01) ==
PROVIDERS: PCP Family Medicine; Visit Provider Internal Medicine Cardiovascular Disease
DX: R06.02 Shortness of breath (principal); R93.1 Abnormal findings on diagnostic imaging of heart and coronary circulation; I34.81 Nonrheumatic mitral (valve) annulus calcification; I34.0 Nonrheumatic mitral (valve) insufficiency; I35.8 Other nonrheumatic aortic valve disorders
CPT/HCPCS: 93306

== ENCOUNTER → 2024-12-16 09:10 | Outpatient (BNVA) | payer MEDICARE, MEDICAID, SELFPAY | PROVIDERS: PCP Family Medicine; Visit Provider Student in an Organized Health Care Education/Training Program | DX: R18.8 Other ascites (principal) | CPT/HCPCS: 99203 ==

== ENCOUNTER 2025-02-03 10:55 | Inpatient (IN) | payer MEDICARE, MEDICAID, SELFPAY ==
--- OUTSIDE RECORDS SUMMARY | 2025-01-07 07:40 | XMS_ITS ---
Author Organization [facility] Address [address] [place] [address] Care Team Providers Care Imaging Specialist Name Role Phone Bethanie Arpan Unavailable [phone] REASON FOR VISIT [facility], intermediate visit at [place], [place] Encounters Encounter Location Date Provider Diagnosis [facility] [address] [place] [address] 01/07/2025 Arpan Kovacs Assessments Encounter Date Diagnosis (ICD Code) Assessment Notes Treatment Notes Treatment Clinical Notes Section Notes 01/07/2025 Other Medications wer e reviewed. I will continue without changes. Nursing staff is to contact me with any symptoms arising. Orders signed and documented with nursing staff. Vitals taken and recorded at [facility]. Plan Of Treatment Treatment Notes Assessment Notes Other Medications were rev iewed. I will continue without changes. Nursing staff is to contact me with any symptoms arising. Orders signed and documented with nursing staff. Vitals taken and recorded at [facility]. Next Appt Details Follow Up: 4 Weeks, Reason: Progress Notes * Jhon HUANGDOB:[birth year] (79 yo M)Acc No.[id number]:01/07/2025 Patient: Jhon DEVI Provider: Rosales Kovacs MD :1945 A ge:79 Y S ex:Male Date:01/07/2025 Address:[address] [facility] [id number] Subjective: * Chief Complaints: * 1 . [facility]. 2. intermediate visit at [place], [place]. * HPI: * :: The patient is seen in the shelter today for follow-up. Staff reports no new complaints. The review of systems and exam are unchanged from previous. Patient denies pain and is comfortable. * Medical History: Objective: * Vitals: * Examination: G eneral Examination: GENERAL APPEARANCE: i n no acute distress. Vital signs as documented.. NECK/THYROID: n o JVD. SKIN: w arm and dry, without overt rashes.. HEART: n otable for regular rhythym, normal sounds and absence of murmurs, rubs or gallops.. LUNGS: L ungs clear. ABDOMEN: u nremarkable, no organomegaly , no masses, or abdominal aortic enlargement.. Assessment: Plan: * Treatment: * Procedure Codes: 9 9309 SNF CARE SUBSEQ * Follow Up: 4 Weeks * Billing Information: * Visit Code: * Procedure Codes: 83615 SNF CARE SUBSEQ. * Electronic signature of Leonid Kovacs MD on 02/03/2025 at 11:17 AM CDT Sign off status: Pending * Provider: Rosales Kovacs MD Date: 0 01/07/2025 Generated for Stuart yanes/Kayla/Maydasmitting on: 0 02/03/2025 11:17 AM CDT History and Physical Notes * HPI (History of Present Illness) Category Sub-Category Detail Notes Category Not es : The patient is seen in the shelter today for follow-up. Staff reports no new complaints. The review of systems and exam are unchanged from previous. Patient denies pain and is comfortable. Examination Category Sub-Category Detail Notes Category Not es General Examination GENERAL APPEARANCE: in no ac [place] distress. Vital signs as documented. NECK/THYROID: no JVD HEART: notable for regular rhythym, normal sounds and absence of murmurs, rubs or gallops. LUNGS: Lungs clear ABDOMEN: unremarkable, no org anomegaly , no masses, or abdominal aortic enlargement. SKIN: warm and dry, withou t overt rashes.
[2025-02-03] VITALS (12 sets, daily range): BP systolic 109–163; BP diastolic 50–74; PULSE 57–75; RESP 11–19; TEMP 36.4–36.8; O2SAT 98–100; BMI 26.4; BMI 26.6
--- NOTE | 2025-02-03 10:57 | XR_ITS ---
WS: [id number] Exam: XR chest 1V portable [id number] Date/Time of Exam: 02/03/2025 10:57 AM Reason For Exam: dyspnea/cough Comparison 10/27/2024. Cardiac enlargement unchanged. Increased density in the LEFT retrocardiac region suggesting LEFT lower lobe infiltrate and/or atelectasis. Mild atelectatic change in the RIGHT base. Remaining lung mendiola are clear. The mediastinum is unremarkable for technique. Bony structures are intact. RIGHT humeral head prosthesis. XR/XR chest 1V portable [id number] IMPRESSION: 1. Cardiac enlargement unchanged. 2. Suspect infiltrate and/or atelectasis in the LEFT lower lobe. Mild RIGHT low er lobe atelectasis.
--- NOTE | 2025-02-03 11:04 | ECG_ITS ---
[employer] Test Date: 2025-02-03 Pat Name: Jhon Marcos Department: Room: Gender: Male Creative Intern: : 1945 Requested By: Yg Mesa Order Number: [id number] Shannan MD: Meghan Gillespie M.D. Measurements Intervals Casar Rate: 57 P: 0 MA: 0 QRS: -39 QRSD: 125 T: -25 QT: 389 QTc: 382 Interpretive Statements ATRIAL FIBRILLATION WITH SLOW VENTRICULAR RESPONSE POSSIBLE RIGHT VENTRICULAR CONDUCTION DELAY [RSR (QR) IN V1/V2] MODERATE VOLTAGE CRITERIA FOR LVH, CONSIDER NORMAL VARIANT [MEETS CRITERIA IN ONE OF: R(aVL), S(V1), R(V5), R(V5/V6)+S(V1)] POSSIBLE SEPTAL MYOCARDIAL INFARCTION , OF INDETERMINATE AGE [30 ms Q WAVE IN V1/V2] INFERIOR MYOCARDIAL INFARCTION , OF INDETERMINATE AGE [40+ ms Q WAVE AND/OR ST/T ABNORMALITY IN II/aVF] Compared to ECG 10/26/2024 03:31:02 Sinus rhythm no longer present Left-axis deviation no longer present Myocardial infarct finding still present Electronically Signed On 02-04-2025 15:22:28 CDT by Meghan Gillespie M.D. [id number] [id number]
--- NOTE | 2025-02-03 11:05 | W.ED.AMS ---
HPI - Altered Mental Status General: Chief Complaint: Altered Mental Status Stated Complaint: ams Time Seen by Provider: 02/03/25 10:56 History of Present Illness: 79-year-old male presents emergency room from senior care states is not been eating he has been somewhat lethargic. Seems relatively awake and alert this time he is answering questions well they report he has a history of dementia. He is aware the fact that he has a hernia relates to me that large protuberant abdomen is unchanged from his baseline. He has an indwelling Conteh. He is complaining of some left shoulder pain send going on for couple days no recent trauma or falls. Related Data Home Medications ?Medication ?Instructions ?Recorded ?Confirmed cyanocobalamin (vitamin B-12) 1,000 mcg SUBCUT DAILY 05/01/23 02/03/25 1,000 mcg/mL injection solution sodium phosphates 19 gram-7 118 ml SD DAILY PRN Constipation 05/01/23 02/03/25 gram/118 mL enema (Fleet Enema) bisacodyl 10 mg rectal suppository 10 mg SD DAILY PRN Constipation 05/17/23 02/03/25 albuterol sulfate 2.5 mg/3 mL 2.5 mg inhalation Q4H PRN SOB 07/12/24 02/03/25 (0.083 %) solution for nebulization artifi.tears(hypromellose)(PF) 1.7 1 drp ophthalmic (eye) BID PRN Dry 07/12/24 02/03/25 % eye drops with applicator Eyes citalopram 20 mg tablet 20 mg PO DAILY 07/12/24 02/03/25 docusate sodium 100 mg capsule 100 mg PO DAILY 07/12/24 02/03/25 (Colace) ondansetron HCl 4 mg tablet 4 mg PO Q4H PRN Nausea And Vomiting 07/12/24 02/03/25 trazodone 50 mg tablet 50 mg PO BEDTIME 07/12/24 02/03/25 alprazolam 0.5 mg tablet 0.5 mg PO Q8H PRN Anxiety 10/19/24 02/03/25 albuterol sulfate 90 mcg/actuation 1 inh inhalation Q6H PRN shortness 10/24/24 02/03/25 aerosol inhaler (Ventolin HFA) of breath or wheezing amiodarone 200 mg tablet (Pacerone) 200 mg PO DAILY 10/24/24 02/03/25 dextromethorphan-guaifenesin 5 10 ml PO Q4H PRN Cough 10/24/24 02/03/25 mg-100 mg/5 mL oral liquid (Robitussin Cough-Chest Congestion DM) diltiazem HCl 120 mg tablet 240 mg PO DAILY 10/24/24 02/03/25 acetaminophen 325 mg tablet 650 mg PO QID PRN Fever Or Pain 02/03/25 02/03/25 (Tylenol) acyclovir 200 mg capsule 200 mg PO Q12H 02/03/25 02/03/25 gabapentin 100 mg capsule 100 mg PO DAILY 02/03/25 02/03/25 polyethylene glycol 3350 17 17 g PO DAILY 02/03/25 02/03/25 gram/dose oral powder (Miralax) tramadol 50 mg tablet 50 mg PO QID 02/03/25 02/03/25 Previous Rx's ?Medication ?Instructions ?Recorded pantoprazole 40 mg tablet,delayed 40 mg PO DAILY #60 tabs 07/15/24 release sodium bicarbonate 650 mg tablet 650 mg PO BID 30 days #60 tabs 07/15/24 isosorbide mononitrate 30 mg 30 mg PO DAILY #90 tabs 10/19/24 tablet,extended release 24 hr nitroglycerin 0.4 mg sublingual 0.4 mg sublingual Q5M PRN chest 10/19/24 tablet pain #20 tabs furosemide 40 mg tablet (Lasix) 40 mg PO BIDWM weight gain 30 days 10/28/24 #60 tabs Allergies Allergy/AdvReac Type Severity Reaction Status Date / Time Penicillins Allergy Unknown Unknown Verified 12/16/24 09:15 Review of Systems Const: Reports: body aches, change in appetite, fatigue and malaise; Denies: fever(s) or chills Card: Denies: chest pain Resp: Denies: dyspnea GI: Denies: abdominal pain : Denies: dysuria, urinary frequency or urinary urgency Musc: Denies: neck pain or back pain Skin/Breast: Denies: rash PFSH ED PFSH: Medical History Systolic CHF Renal failure (ARF), acute on chronic AMS (altered mental status) Metabolic encephalopathy Expressive aphasia End stage renal disease Right leg DVT Iliac DVT (deep venous thrombosis) Pleural effusion, left CHRISTY (obstructive sleep apnea) Eosinophilic asthma History of stroke BPH (benign prostatic hyperplasia) Myocardial infarct ASHD (arteriosclerotic heart disease) Diabetes 1.5, managed as type 2 HTN (hypertension) Hyperlipidemia Surgical History History of knee replacement (~2014) History of shoulder replacement S/P shoulder replacement S/P knee replacement H/O esophagogastroduodenoscopy (09/26/20) History of colonoscopy (09/26/20) S/P PTCA (percutaneous transluminal coronary angioplasty) Family History Mother Dementia Denies family history of Family history of premature coronary artery disease Social History Smoking and tobacco/nicotine status: former use of tobacco/nicotine Quit status (tobacco/nicotine): has quit using Year quit tobacco: 1971 Former quit date comment: 2ppd x 10 years Alcohol intake: never Household members: spouse Marital status: service: No Current occupational status: retired Physical Exam Const: GENERAL APPEARANCE: cooperative ORIENTATION/CONSCIOUSNESS: Yes awake, Yes oriented to person, Yes oriented to place and Yes oriented to time HENMT: COMMON NORMALS: normocephalic, atraumatic and hearing grossly normal bilaterally HEAD & SCALP: normocephalic and atraumatic Resp: COMMON NORMALS: normal respiratory effort, No retractions, No use of accessory muscles and clear to auscultation bilaterally AUSCULTATION: clear to auscultation bilaterally Cardio: COMMON NORMALS: regular rate, regular rhythm and No murmurs present (Cardio) RATE: regular rate RHYTHM: regular rhythm GI: COMMON NORMALS: Soft to palpation and No hepatosplenomegaly present INSPECTION: Yes abdominal distension (Large hernia defect) AUSCULTATION: Yes normoactive bowel sounds PALPATION: Yes Soft to palpation, No Tenderness to palpation present (GI), No Guarding due to palpation present (GI) and Yes No hepatosplenomegaly present Extremity: COMMON NORMALS: normal to inspection, capillary refill normal, no clubbing, cyanosis or edema, no calf tenderness and no pedal edema Neuro: SENSORIUM/ORIENTATION: Yes oriented to person, Yes oriented to place and Yes oriented to time Skin: COMMON NORMALS: no rashes or lesions noted GENERAL SKIN EXAM: no rashes or lesions noted Course Vital Signs: Vital signs: Vital Signs Temperature 98.3 F 02/03/25 10:56 Pulse Rate 58 L 02/03/25 12:52 Respiratory Rate 17 02/03/25 12:06 Blood Pressure 132/54 02/03/25 12:52 Pulse Oximetry 100 02/03/25 12:52 Oxygen Delivery Me thod Room Air 02/03/25 10:56 MDM - Altered Mental Status Medical Decision Making Patient has pneumonia additionally has a cystitis. He is in acute on chronic renal failure he previously was on dialysis evidently he had stopped and did not want to restart again. Will start with ceftriaxone and Zithromax cultures done discussed with hospitalist and with nephrology. Medical Records I reviewed the patient's medical records. Lab Data I reviewed the patient's lab results. 02/03/25 11:16 02/03/25 11:16 Radiology Impressions Chest X-Ray 02/03/25 10:57 IMPRESSION: 1. Cardiac enlargement unchanged. 2. Suspect infiltrate and/or atelectasis in the LEFT lower lobe. Mild RIGHT lower lobe atelectasis. Shoulder X-Ray 02/03/25 11:16 IMPRESSION: 1. End-stage osteoarthritis of the glenohumeral joint. No fracture. Laboratory Results WBC 12.99 10^3/uL (3.29-11.43) H 02/03/25 11:16 RBC 2.45 10^6/uL (3.85-5.65) L 02/03/25 11:16 Hgb 6.70 g/dL (11.27-16.99) L 02/03/25 11:16 Hct 21.5 % (37-53) L 02/03/25 11:16 MCV 87.8 fl (82-101) 02/03/25 11:16 MCH 27.3 pg (27-33) 02/03/25 11:16 MCHC 31.2 g/dL (30-55) 02/03/25 11:16 RDW 15.6 % (12.1-15.1) H 02/03/25 11:16 Plt Count 376 10^3/cmm (157-399) 02/03/25 11:16 MPV 9.9 fL (7.4-10.4) 02/03/25 11:16 Neut % (Auto) 85.0 % 02/03/25 11:16 Lymph % (Auto) 7.7 % 02/03/25 11:16 Morton % (Auto) 5.2 % 02/03/25 11:16 Eos % (Auto) 1.3 % 02/03/25 11:16 Baso % (Auto) 0.1 % 02/03/25 11:16 Neut # (Auto) 11.05 10^3/uL (1.8-7.7) H 02/03/25 11:16 Lymph # (Auto) 1.0 10^3/uL (0.8-4.8) 02/03/25 11:16 Morton # (Auto) 0.7 10^3/uL (0.2-0.9) 02/03/25 11:16 Eos # (Auto) 0.2 10^3/uL (0.0-0.8) 02/03/25 11:16 Baso # (Auto) 0.0 10^3/uL (0.0-0.1) 02/03/25 11:16 Nucleated RBC % (auto) 0 % 02/03/25 11:16 Nucleated RBCs # 0.0 /100WBC 02/03/25 11:16 Sodium 131 mmol/L (136-145) L 02/03/25 11:16 Potassium 4.0 mmol/L (3.5-5.1) 02/03/25 11:16 Chloride 99 mmol/L (98-107) 02/03/25 11:16 Carbon Dioxide 13 mmol/L (22-29) L 02/03/25 11:16 Anion Gap 23.0 (5-19) H 02/03/25 11:16 BUN 87 mg/dL (8-23) H* 02/03/25 11:16 Creatinine 7.4 mg/dL (0.7-1.2) H* 02/03/25 11:16 GFR Calculation Not Reportable 02/03/25 11:16 Glucose 117 mg/dL (65-115) H 02/03/25 11:16 Calculated Osmolality 300 mOsm/kg (285-295) H 02/03/25 11:16 Lactic Acid 0.8 mmol/L (0.5-2.2) 02/03/25 11:16 Calcium 9.2 mg/dL (8.5-10.5) 02/03/25 11:16 Magnesium 2.1 mg/dL (1.7-2.3) 02/03/25 11:16 Total Bilirubin 0.2 mg/dL (0.15-1.2) 02/03/25 11:16 AST 12 U/L (0-40) 02/03/25 11:16 ALT 22 U/L (0-41) 02/03/25 11:16 Alkaline Phosphatase 120 U/L (40-130) 02/03/25 11:16 Total Protein 7.6 g/dL (6.6-8.7) 02/03/25 11:16 Albumin 4.1 g/dL (3.5-5.2) 02/03/25 11:16 Globulin 3.5 g/dL (1.3-4.6) 02/03/25 11:16 Urine Color Yellow (Yellow) 02/03/25 11:53 Urine Appearance Cloudy (CLEAR) A 02/03/25 11:53 Urine pH 7.5 (5-7) 02/03/25 11:53 Ur Specific [place] 1.012 (1.005-1.030) 02/03/25 11:53 Urine Protein 2+ (Negative) A 02/03/25 11:53 Urine Glucose (UA) Negative (Normal) 02/03/25 11:53 Urine Ketones Negative (Negative) 02/03/25 11:53 Urine Blood Negative (Negative) 02/03/25 11:53 Urine Nitrate Positive (Negative) A 02/03/25 11:53 Urine Bilirubin Negative (Negative) 02/03/25 11:53 Urine Urobilinogen 0.2 mg/dL (Negative) 02/03/25 11:53 Ur Leukocyte Esterase 3+ (Negative) A 02/03/25 11:53 Urine RBC 0-2 /hpf (0-2) 02/03/25 11:53 Urine WBC 51-100 /hpf (0-5) H 02/03/25 11:53 Ur Squamous Epith Cells 0-5 /hpf (0-5) 02/03/25 11:53 Amorphous Sediment Not Reportable 02/03/25 11:53 Urine Bacteria 2+ /hpf (NONE) H 02/03/25 11:53 Hyaline Casts 1.65 /lpf 02/03/25 11:53 Blood Type O Positive 02/03/25 11:16 Rho(D) Type Rh positive 02/03/25 11:16 Antibody Screen Negative 02/03/25 11:16 Crossmatch See Detail 02/03/25 11:16 All radiology interpretation(s) finalized by discharge Discharge Plan Discharge Patient Disposition: Admitted As Inpatient Clinical Impression: Acute on chronic renal failure, Anemia, Right lower lobe pneumonia, Cystitis Condition: Stable Coding Level of Care Code ED Pedigree Tracer for Milind Johnston
--- NOTE | 2025-02-03 11:16 | XR_ITS ---
WS: [id number] Exam: XR shoulder LT min 2V* [id number] Date/Time of Exam: 02/03/2025 11:16 AM Reason For Exam: pain No acute fracture. Advanced degenerative change of the glenohumeral joint with [id number]. The AC joint is intact. Normal soft tissues. XR/XR shoulder LT min 2V* [id number] IMPRESSION: 1. End-stage osteoarthritis of the glenohumeral joint. No fracture.
--- OUTSIDE RECORDS SUMMARY | 2025-02-03 11:17 | XMS_ITS | Encounter Summary ---
Author Organization [facility] Address [address] 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
--- OUTSIDE RECORDS SUMMARY | 2025-02-03 11:17 | XMS_ITS | Encounter Summary ---
Author Organization [facility] Address [address] [facility] Attn: [place] [address] Care Team Providers Care Respiratory Therapist Assistant Name Role Phone Ramiro Villavicencio MD Primary Care Provider [phone] Encounter Details Date Type Department Care Team (Late st Contact Info) Description 08/10/1999 Outpatient Historical Monroe Callahan MD [address] [facility] [address] [place], [place] [address] Social History Tobacco Use Types Packs/Day Years Used Date Smoking Tobacco: Never Assessed Sex and Gender Information Value Date Recorded Sex Assigned at Not on file 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
--- OUTSIDE RECORDS SUMMARY | 2025-02-03 11:17 | XMS_ITS | Encounter Summary ---
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
--- OUTSIDE RECORDS SUMMARY | 2025-02-03 11:17 | XMS_ITS | Encounter Summary ---
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
--- OUTSIDE RECORDS SUMMARY | 2025-02-03 11:17 | XMS_ITS | Clinical Summary ---
Author Organization [employer] [facility] Address [address] [facility] Attn: Epic [place] [address] Care Team Providers Care Test Bore Helper Name Role Phone Ramiro Villavicencio MD Primary Care Provider Allergies Active Allergy Reactions Criticality Noted Date Comments Penicillin G Hives High 08/28/2009 Ticagrelor Other (See Comments) 12/24/2012 GI bleed Medications morphine (MS IR) 30 mg tablet Take 30 mg by mouth 4 times daily. 10/10/2014 Active atorvastatin (LIPITOR) 40 mg tablet Take 40 mg by mouth Daily LATE. 10/10/2014 Active bisoprolol-hydr oCHLOROthiazide (ZIAC) 10-6.25 mg tablet Take 1 Tab by mouth daily. 10/10/2014 Active buPROPion HCL (WELLBUTRIN XL) 150 mg Extended Release 24 hour tablet Take 150 mg by mouth daily piling cutter. 10/10/2014 Active ALPRAZolam (XANAX) 1 mg tablet Take 1 mg by mouth nightly as needed for Anxiety. Active amLODIPine (NORVASC) 10 mg tablet Take 5 mg by mouth daily. Active carbidopa-levod opa (SINEMET) 25-100 mg tablet Take 1 Tablet by mouth 2 times daily. Active citalopram (CeleXA) 40 mg tablet Take 40 mg by mouth daily. Active clopidogreL (PLAVIX) 75 mg Tablet Take 75 mg by mouth. Active ferrous fumarate (FERRETTS) 325 mg (106 mg iron) Tablet Take 325 mg by mouth. Active finasteride (PROSCAR) 5 mg tablet Take 5 mg by mouth daily. Active pantoprazole (PROTONIX) 40 mg Tablet, Delayed Release (E.C.) Take 40 mg by mouth daily. Active propranolol HCl (INDERAL LA ORAL) Take 80 mg by mouth. Active QUEtiapine (SEROquel) 50 mg tablet Take 50 mg by mouth daily at bedtime. Active tamsulosin (FLOMAX) 0.4 mg capsule Take 0.4 mg by mouth daily. Active Active Problems Problem Noted Date Diagnosed Date Lower back pain 10/10/2014 Exertional angina 04/01/2012 Dyspnea 01/08/2011 GERD (gastroesophageal reflux disease) 1 Old NE (myocardial infarction) 01/08/2011 Status post coronary artery stent placement 12/26 CAD (coronary artery disease) 12/04/2009 Diabetes mellitus 12/04/2009 Pericardial effusion 12/04/2009 Overview (11/23/2020): hx of Dyslipidemia 12/04/2009 HTN (hypertension) 12/04/2009 CHRISTY (obstructive sleep apnea) 12/04/2009 Degenerative arthritis of left knee 08/31/2009 Resolved Problems Problem Noted Date Diagnosed Date Resolved Date Chronic ischemic heart disease 12/04/2009 01/08/2011 Immunizations Immunization Administration Dates Next Due (TDVAX)(7 YRS UP) TETANUS AN D DIPHTHERIA TOXOIDS, ADSORBED (2 LF OF TETANUS TOXOID AND 2 LF OF DIPHTHERIA TOXOID), 0.5ML (PF), IM 02/20/2004 Family History Medical History Relation Name Comments Diabetes Paternal Aunt Relation Name Status Comments Paternal Aunt Social History Tobacco Use Types Packs/Day Years Used Date Smoking Tobacco: Never Alcohol Use Standard Drinks/Week Comments Yes 1.7 (1 standard drink = 0.6 oz p ure alcohol) Sex and Gender Information Value Date Recorded Sex Assigned at Not on file 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 Gender Identity Not on file Sexual Orientation Not on file Last Filed Vital Signs Vital Sign Reading Time Taken Comments Blood Pressure 122/71 12/19/2021 2:30 PM CDT Pulse 62 12/19/2021 2:30 PM CDT Temperature 35.9 C (96.6 F) 12/19/2021 2:30 PM CDT Respiratory Rate 20 12/19/2021 2:30 PM CDT Oxygen Saturation 98% 12/19/2021 2:30 PM CDT Inhaled Oxygen Concentration - - Weight 90.7 kg (200 lb) 12/19/2021 7:35 AM CDT Height 180.3 cm (5' 11 ) 12/19/2021 7:35 AM CDT Body Mass Index 27.89 12/19/2021 7:35 AM CDT Plan of Treatment Health Maintenance Due Date Last Done Comments DIABETES ANNUAL FOOT EXAM 1961 DIABETES ANNUAL RETINAL EXAM 1961 DIABETES MICROALBUMIN ANNUAL SCREEN 1961 LDL CHOLESTEROL ANNUAL 1961 PNEUMOCOCCAL VACCINE 50+ YEARS (1 of 2 - PCV) 04/22/19 62 ZOSTER VACCINE (1 of 2) 1993 DTAP/TDAP/TD VACCINES (1 - Tdap) 02/21/2004 02/20/20 04 DIABETES HBA1C Q 6 MONTHS 02/25/2010 08/28/2009 RSV VACCINE (60+ or ) (1 - 1-dose 75+ series) 2018 INFLUENZA VACCINE (#1) 2025 Medical Devices Implanted Type Area Assembler Engine Device Identifier Shelf Expiration Date Model / Serial / Lot Log [id number] - Cement - 1 - Cement Palacos Sgl Implanted:Qty: 1 on 09/01/2009 Cement Left: Knee GONZALO [employer] - / NA / [id number] Log [id number] - Gonzalo Total Knee - 1 - Art Surface Nk Gs Implanted:Qty: 1 on 09/01/2009 Knee Left: Knee GONZALO [employer] - / NA / [id number] Log 71467 - Gonzalo Total Knee - 1 - Comp Fem Nkii Gsm Implanted:Qty: 1 on 09/01/2009 Knee Left: Knee GONZALO [employer] / NA / [id number] Log [id number] - Gonzalo Total Knee - 1 - Comp Tib Nkii Quality Nurse Stmd 630 Implanted:Qty: 1 on 09/01/2009 Knee Left: Knee GONZALO [employer] 630 / NA / [id number] Log 73390 - Gonzalo Total Knee - 1 - Patella Nk Gs Poly 8mm Implanted:Qty: 1 on 09/01/2009 Knee Left: Knee GONZALO [employer] -01 / NA / [id number] Insurance [facility] [id number] Care Teams Test Bore Helper Relationship Specialty Start Date End Date Ramiro Villavicencio MD [address] [address] [place], [place] [id number] PCP - General 08/16/03
--- OUTSIDE RECORDS SUMMARY | 2025-02-03 11:17 | XMS_ITS | Clinical Summary ---
Author Organization [facility] Address [address] [facility] [place] [address] Care Team Providers Care Manager Package Name Role Phone Ramiro Villavicencio MD Primary Care Provider [phone] Allergies Active Allergy Reactions Criticality Noted Date Comments Penicillin G Hives High 08/28/2009 Ticagrelor Other (See Comments) 12/24/2012 GI bleed Medications alprazolam (XANAX) 1 mg Oral tablet Take 1 mg by mouth nightly as needed for Anxiety. Active doxepin (SINEQUAN) 150 mg Oral Cap Take 150 mg by mouth daily at bedtime. Active metformin (GLUCOPHAGE) 500 mg Oral tablet Take 500 mg by mouth 2 times daily with meals. Active nitroglycerin (NITROSTAT) 0.[address] 1 Tab under tongue every 5 minutes as needed for Chest Pain. 25 Tab 2 03/26/2012 Active aspirin (DIONY CHEWABLE) 81 mg Oral Chew Take 1 Tab by mouth daily. 30 Tab 11 04/01/2012 Active clopidogrel (PLAVIX) 75 mg Oral Tab Take 75 mg by mouth daily. Active amLODIPine (NORVASC) 5 mg tabletIndicatio ns:Old IA (myocardial infarction),Sta tus post coronary artery stent placement,HTN (hypertension) Take 1 Tab by mouth 2 times daily. 60 Tab 3 07/02/2013 Active morphine (MS IR) 30 mg tablet Take 30 mg by mouth 4 times daily. 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 Active bisoprolol-hydr ochlorothiazide (ZIAC) 10-6.25 mg tablet Take 1 Tab by mouth daily. Active atorvastatin (LIPITOR) 40 mg tablet Take 40 mg by mouth Daily LATE. Active Active Problems Problem Noted Date Diagnosed Date Lower back pain 10/10/2014 Exertional angina 04/01/2012 Old IA (myocardial infarction) 01/08/2011 Dyspnea 01/08/2011 Status post coronary artery stent placement 12/26 GERD (gastroesophageal reflux disease) 1 Pericardial effusion 12/04/2009 Overview (12/04/2009): hx of CAD (coronary artery disease) 12/04/2009 HTN (hypertension) 12/04/2009 Dyslipidemia 12/04/2009 Diabetes mellitus 12/04/2009 CHRISTY (obstructive sleep apnea) 12/04/2009 Degenerative [...] drink = 0.6 oz p ure alcohol) rare Sex and Gender Information Value Date Recorded Sex Assigned at Not on file 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 Sex 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 Gender Identity Not on file Sexual Orientation Not on file Occupation Industry Job Start Date Job End Date Not on file Not on file Not on file Not on file Last Filed Vital Signs Vital Sign Reading Time Taken Comments Blood Pressure 122/65 10/10/2014 10:57 AM CDT Pulse 78 10/10/2014 10:57 AM CDT Temperature 36.6 C (97.8 F) 04/01/2012 4:58 AM CDT Respiratory Rate 18 04/01/2012 4:58 AM CDT Oxygen Saturation 94% 04/01/2012 4:58 AM CDT Inhaled Oxygen Concentration - - Weight 95.3 kg (210 lb) 10/10/2014 10:57 AM CDT Height 177.8 cm (5' 10 ) 10/10/2014 10:57 AM CDT Body Mass Index 30.13 10/10/2014 10:57 AM CDT Plan of Treatment Health Maintenance Due Date Last Done Comments DIABETES ANNUAL FOOT EXAM 1961 DIABETES ANNUAL RETINAL EXAM 1961 DIABETES MICROALBUMIN ANNUAL SCREEN 1961 PNEUMOCOCCAL VACCINE 50+ YEARS (1 of 2 - PCV) 04/22/19 62 ZOSTER VACCINE (1 of 2) 1993 DTAP/TDAP/TD VACCINES (1 - Tdap) 02/21/2004 02/20/20 04 LDL CHOLESTEROL ANNUAL 04/14/2009 04/14/2008 DIABETES HBA1C Q 6 MONTHS 02/25/2010 08/28/2009 RSV VACCINE (60+ or ) (1 - 1-dose 75+ series) 2018 INFLUENZA VACCINE (#1) 2025 Medical Devices Implanted Type Area Umbrella Tipper Machine Device Identifier Shelf Expiration Date Model / Serial / Lot Log [id number] - Cement - 1 - Cement Palacos Sgl [id number] Implanted:Qty: 1 on 09/01/2009 at [facility] Cement Left: Knee [employer] 1112-14 0- / NA / [id number] Log 01820 - Gonzalo Total Knee - 1 - Comp Fem Nkii Gsm [id number] Implanted:Qty: 1 on 09/01/2009 at [facility] Knee Left: Knee [employer] 5410- 6- / NA / [id number] Log [id number] - Gonzalo Total Knee - 1 - Patella Nk Gs Poly 8mm [id number] Implanted:Qty: 1 on 09/01/2009 at [facility] Knee Left: Knee [employer] 5420- 8- / NA / [id number] Log 26838 - Gonzalo Total Knee - 1 - Comp Tib Nkii Coat Cutter Stmd [id number] Implanted:Qty: 1 on 09/01/2009 at [facility] Knee Left: Knee [employer] 0 / NA / [id number] Log 98940 - Gonzalo Total Knee - 1 - Art Surface Nk Gs [id number] Implanted:Qty: 1 on 09/01/2009 at [facility] Knee Left: Knee [employer] 24-07 28-09 / NA / [id number] Procedures Procedure Name Priority Date/Time Associated Diagnosis Comments HEMOGLOBIN A1C Routine 08/28/2009 2:22 PM DIRECTOR OF NEIGHBORHOOD SERVICE CENTER LIPID PANEL Stat 04/14/2008 8:31 AM CDT from Last 3 Months or Most Recently Relevant to Health Maintenance Results * (ABNORMAL) HEMOGLOBIN A1C (08/28/2009 2:22 PM DIRECTOR OF NEIGHBORHOOD SERVICE C[facility]) HEMOGLOBIN A1C 7.1(H) 4.0 - 6.0 %A1C [facility] Blood specimen (specimen) 08/28/2009 2:22 PM DIRECTOR OF NEIGHBORHOOD SERVICE CENTER 08/28/2009 2:22 PM DIRECTOR OF NEIGHBORHOOD SERVICE CENTER Sean Shea MD CHEMISTRY ORDERABLES Final Result INTERFACE SYSTEM Refer to clinic/hospital department [facility] IA# [id number] [address] [place] [address] * (ABNORMAL) LIPID PANEL (04/14/2008 8:31 AM CDT) CHOLESTEROL 188 0 - 200 mg/dL [facility] Comment: On 11/30/2007 [facility] changed the cholesterol reference range to 0-200 mg/dl. This is the recommendation of the National Cholesterol Education Program (NCEP-ATPIII). CALCULATED TOTAL CHOLESTEROL TO HDL RATIO 5.22(H) 3.43 - 4.97 [facility] LDL CALCULATED 116(H) 0 - 100 mg/dL [facility] Comment: On 11/30/2007 [facility] changed the LDL reference range to 0- 100 mg/dl. This is the recommendation of the National Cholesterol Education Program (NCEP-ATPIII). TRIGLYCERIDE 179(H) 0 - 150 mg/dL [facility] Comment: On 11/30/2007, [facility] changed the triglyceride reference range to 0-150 mg/dl. This is the recommendation of the National Cholesterol Education Program (NCEP-ATPIII). HDL 36(L) 40 - 60 mg/dL [facility] Blood specimen (specimen) 04/14/2008 8:31 AM CDT 04/14/2008 8:37 AM CDT us Marquis Kyle MD CHEMISTRY ORDERABLES Final Result INTERFACE SYSTEM Refer to clinic/hospital department [facility] CLIA# [id number] [address] [place] [address] from Last 3 Months or Most Recently Relevant to Health Maintenance Insurance [employer] [facility] [place] [id number] Advance Directives For more information, please contact: [phone] * Full Code (Latest Code Status on File) Date Activated Date Inactivated Comments 03/31/2012 5:47 PM 04/01/2012 1:43 PM * Full Code Date Activated Date Inactivated Comments 03/31/2012 10:33 AM 03/31/2012 5:47 PM * Full Code Date Activated Date Inactivated Comments 09/01/2009 10:48 AM 09/04/2009 3:16 PM * Full Code Date Activated Date Inactivated Comments 09/01/2009 7:11 AM 09/01/2009 10:48 AM * Full Code Date Activated Date Inactivated Comments 09/01/2009 5:08 AM 09/01/2009 7:11 AM Care Teams Manager Package Relationship Specialty Start Date End Date Ramiro Villavicencio MD [address] [id number] PCP - General 08/16/03
--- OUTSIDE RECORDS SUMMARY | 2025-02-03 11:17 | XMS_ITS | Encounter Summary ---
Author Organization [facility] Address [address] 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
--- OUTSIDE RECORDS SUMMARY | 2025-02-03 11:17 | XMS_ITS | Encounter Summary ---
Author Organization [facility] Address [address] [facility] Attn: [place] [address] Care Team Providers Care Family Mediator Name Role Phone Ramiro Villavicencio MD Primary Care Provider [phone] Encounter Details Date Type Department Care Team (Late st Contact Info) Description 06/23/2000 Outpatient Historical Cale Meng MD NO ADDRESS ON FILE Social History Tobacco Use Types Packs/Day Years Used Date Smoking Tobacco: Never Assessed Sex and Gender Information Value Date Recorded Sex Assigned at Not on file Legal Sex Male 6:28 AM 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
--- OUTSIDE RECORDS SUMMARY | 2025-02-03 11:18 | XMS_ITS | Encounter Summary ---
Author Organization [facility] Address [address] [place] [address] Care Team Providers Care Cnc Specialist Name Role Phone Ramiro Villavicencio MD Primary Care Provider [phone] Encounter Details Date Type Department Care Team (Latest Contact Info) Description 05/10/2003 Inpatient Historical [facility] Cardiac Yard General Car Supervisor [address] [place] [phone] Maverick Hernandez MD NO ADDRESS ON FILE CORON ATHEROSCL [place] CORON VESSEL (Primary Dx) Social History Tobacco Use Types Packs/Day Years Used Date Smoking Tobacco: Never Assessed Sex and Gender Information Value Date Recorded Sex Assigned at Not on file Legal Sex Male 6:28 AM IMPORT COORDINATOR Gender Identity Not on file Sexual Orientation Not on file documented as of this encounter Plan of Treatment Not on file documented as of this encounter Visit Diagnoses Diagnosis Coronary atherosclerosis of [place] coronary artery- Primary documented in this encounter Care Teams Cnc Specialist Relationship Specialty Start Date End Date Ramiro Villavicencio MD [address] [phone] PCP - General 08/16/03 documented as of this encounter
--- OUTSIDE RECORDS SUMMARY | 2025-02-03 11:18 | XMS_ITS | Encounter Summary ---
Author Organization [facility] Address [address] [place] [address] Care Team Providers Care Garland Maker Name Role Phone Ramiro Villavicencio MD Primary Care Provider [phone] Encounter Details Date Type Department Care Team (Latest Contact Info) Description 08/21/2000 Outpatient Historical [facility] [address] 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
--- OUTSIDE RECORDS SUMMARY | 2025-02-03 11:18 | XMS_ITS | Encounter Summary ---
Author Organization [facility] Address [address] [place] [address] Care Team Providers Care Ict Quality Assurance Engineer Name Role Phone Ramiro Villavicencio MD Primary Care Provider [phone] Encounter Details Date Type Department Care Team (Latest Contact Info) Description 11/08/2003 Outpatient Historical [facility] Orthopedics- 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
--- OUTSIDE RECORDS SUMMARY | 2025-02-03 11:18 | XMS_ITS | Encounter Summary ---
Author Organization [facility] Address [address] [place] [address] Care Team Providers Care Photo Checker Name Role Phone Ramiro Villavicencio MD Primary Care Provider [phone] Encounter Details Date Type Department Care Team (Latest Contact Info) Description 07/05/2003 Outpatient Historical [facility]- [place] [address] [place] [phone] CORON ATHEROSCL [place] CORON VESSEL (Primary Dx) Social History Tobacco Use Types Packs/Day Years Used Date Smoking Tobacco: Never Assessed Sex and Gender Information Value Date Recorded Sex Assigned at Not on file 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
--- OUTSIDE RECORDS SUMMARY | 2025-02-03 11:18 | XMS_ITS | Encounter Summary ---
Author Organization [facility] Address [address] [facility] Attn: [place] [address] Care Team Providers Care Marriage And Family Social Worker Name Role Phone Ramiro Villavicencio MD Primary Care Provider [phone] Encounter Details Date Type Department Care Team (Late st Contact Info) Description 09/22/2000 Outpatient Historical Cale Meng MD NO ADDRESS ON FILE Social History Tobacco Use Types Packs/Day Years Used Date Smoking Tobacco: Never Assessed Sex and Gender Information Value Date Recorded Sex Assigned at Not on file 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
--- OUTSIDE RECORDS SUMMARY | 2025-02-03 11:18 | XMS_ITS | Encounter Summary ---
Author Organization [facility] Address [address] [place] [address] Care Team Providers Care Java Application Developer Name Role Phone Ramiro Villavicencio MD Primary Care Provider [phone] Encounter Details Date Type Department Care Team (Latest Contact Info) Description 08/16/2003 Outpatient Historical [facility] Pre[facility] [address] [place] [address] 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
--- OUTSIDE RECORDS SUMMARY | 2025-02-03 11:18 | XMS_ITS | Encounter Summary ---
Author Organization [facility] Address [address] [place] [address] Care Team Providers Care Percussion Teacher Name Role Phone aRmiro Villavicencio MD Primary Care Provider [phone] Encounter Details Date Type Department Care Team (Latest Contact Info) Description 09/22/2000 Outpatient Historical [facility] Pain [facility] [address] [place] [phone] Postlaminectomy syndrome, lumbar region (Primary Dx) Social History Tobacco Use Types Packs/Day Years Used Date Smoking Tobacco: Never Assessed Sex and Gender Information Value Date Recorded Sex Assigned at Not on file 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
--- OUTSIDE RECORDS SUMMARY | 2025-02-03 11:18 | XMS_ITS | Encounter Summary ---
Author Organization [employer] [facility] Address [address] [place] [address] Care Team Providers Care Preload Supervisor Name Role Phone Ramiro Villavicencio MD Primary Care Provider [phone] Encounter Details Date Type Department Care Team (Late st Contact Info) Description 08/17/2003 Inpatient Historical HIS IN BED Ronnie Saba MD [address] [place] [id number] SHOULDER REGION DIS NEC (Primary Dx) Social History Tobacco Use Types Packs/Day Years Used Date Smoking Tobacco: Never Assessed Sex and Gender Information Value Date Recorded Sex Assigned at Not on file Legal Sex Male 6:28 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
--- OUTSIDE RECORDS SUMMARY | 2025-02-03 11:18 | XMS_ITS | Encounter Summary ---
Author Organization [facility] Address [address] [place] [address] Care Team Providers Care Flue Gas Analyst Name Role Phone Ramiro Villavicencio MD Primary Care Provider [phone] Encounter Details Date Type Department Care Team (Latest Contact Info) Description 09/27/2003 Outpatient Historical [facility] Orthopedics- 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
--- OUTSIDE RECORDS SUMMARY | 2025-02-03 11:18 | XMS_ITS | Encounter Summary ---
Author Organization [facility] Address [address] [place] [address] Care Team Providers Care Denitrator Operator Name Role Phone Ramiro Villavicencio MD Primary Care Provider [phone] Encounter Details Date Type Department Care Team (Latest Contact Info) Description 08/01/2003 Outpatient Historical [facility] Orthopedics- 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
--- OUTSIDE RECORDS SUMMARY | 2025-02-03 11:18 | XMS_ITS | Encounter Summary ---
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 Gender Identity Not on file Sexual Orientation Not on file documented as of this encounter Plan of Treatment Not on file documented as of this encounter Procedures Procedure Name Priority Date/Time Associated Diagnosis Comments POC GLUCOSE Routine 04/15/2008 5:36 AM CDT CARDIAC ENZYMES Routine 04/15/2008 3:34 AM CDT CARDIAC ENZYMES Routine 04/14/2008 8:23 PM CDT CARDIAC ENZYMES Routine 04/14/2008 1:56 PM CDT POC GLUCOSE Routine 04/14/2008 12:53 PM CDT PT AND APTT Routine 04/14/2008 8:39 AM CDT CBC WITHOUT DIFFERENTIAL Stat 04/14/2008 8:31 AM CDT TSH Stat 04/14/2008 8:31 AM CDT LIPID PANEL Stat 04/14/2008 8:31 AM CDT COMPREHENSIVE METABOLIC PANEL Stat 04/14/2008 8:31 AM CDT documented in this encounter Results * (ABNORMAL) POC GLUCOSE (04/15/2008 5:36 AM CDT) GLUCOSE POC 103(H) 60 - 100 mg/dL [facility] Venous blood specimen (specimen) 04/15/2008 5:36 AM CDT 04/16/2008 3:19 AM CDT Marquis Kyle MD POINT OF CARE TESTING Taylor l Result Performing Organization Address [facility] de Phone Number INTERFACE SYSTEM Refer to clinic/hospital department [facility] CLIA# [id number] [address] [place] [address] * CARDIAC ENZYMES (04/15/2008 3:34 AM CDT) TROPONIN I 0.3 0.0 - 1.3 ng/mL [facility] CKMB 3.4 0.0 - 5.0 ng/mL [facility] Blood specimen (specimen) 04/15/2008 3:34 AM CDT 04/15/2008 3:46 AM CDT Marquis Kyle MD CHEMISTRY ORDERABLES Final Result Performing Organization Address [facility] de Phone Number INTERFACE SYSTEM Refer to clinic/hospital department [facility] CLIA# [id number] [address] [place] [address] * CARDIAC ENZYMES (04/14/2008 8:23 PM CDT) CKMB 2.0 0.0 - 5.0 ng/mL [facility] TROPONIN I 0.1 0.0 - 1.3 ng/mL [facility] Blood specimen (specimen) 04/14/2008 8:23 PM CDT 04/14/2008 8:26 PM CDT Marquis Kyle MD CHEMISTRY ORDERABLES Final Result Performing Organization Address [facility] Phone Number INTERFACE SYSTEM Refer to clinic/hospital [facility] CLIA# [id number] [address] [place] [address] * CARDIAC ENZYMES (04/14/2008 1:56 PM CDT) [facility] CKMB 1.2 0.0 - 5.0 ng/mL [facility] TROPONIN I <0.1 0.0 - 1.3 ng/mL [facility] Blood specimen (specimen) 04/14/2008 1:56 PM CDT 04/14/2008 2:00 PM CDT Marquis Kyle MD CHEMISTRY ORDERABLES Final Result Performing Organization Address [facility] Phone Number INTERFACE SYSTEM Refer to clinic/hospital [facility] CLIA# [id number] [address] [place] [address] * POC GLUCOSE (04/14/2008 12:53 PM CDT) [facility] GLUCOSE POC 98 60 - 100 mg/dL [facility] Venous blood specimen (specimen) 04/14/2008 12:53 PM CDT 04/15/2008 5:19 AM CDT Marquis Kyle MD POINT OF CARE TESTING Taylor l Result Performing Organization Address [facility] Phone Number INTERFACE SYSTEM Refer to clinic/[facility] CLIA# [id number] [address] [place] [address] * PT AND APTT (04/14/2008 8:39 AM CDT) [facility] INR 0.9 [facility] Comment: Expected Values for INR: DVT/PE Goal INR 2.5; range 2.0 - 3.0 Valve Replacement Tissue Goal INR 2.5; range 2.0 - 3.0 Mechanical Goal INR 3.0; range 2.5 - 3.5 POST-CO Goal INR 2.5; range 2.0 - 3.0 or Goal 3.0; range 2.5 - 3.5 Atrial Fibrillation Goal INR 2.5; range 2.0 - 3.0 Ischemic Stroke Goal INR 2.5; range 2.0 - 3.0 For additional information see Guidelines for Anticoagulation available from the pharmacy Yovani Corbin [phone] PTT 31.4 22.5 - 36.5 Secs [facility] Comment: Therapeutic Range: Hi-level PE/DVT heparin protocol 80.1 -95.0 sec Lo-level PE/DVT heparin protocol 67.1 - 80.0 sec Cardiac Heparin Protocol 67.1 - 85.0 sec Neuro Heparin Protocol 67.1 - 80.0 sec As of 10/15/2007 note change in APTT Normal Range. PROTIME 13.6 12.8 - 15.8 Secs [facility] Comment:As of 2007 not e change in normal range. Blood specimen (specimen) 04/14/2008 8:39 AM CDT 04/14/2008 8:39 AM CDT Narrative INTERFACE SYSTEM - 04/14/2008 9:03 AM CDT blood in lab us Marquis Kyle MD HEMATOLOGY ORDERABLES Edit ed INTERFACE SYSTEM Refer to clinic/hospital department [facility] CLIA# [id number] [address] [place] [address] * (ABNORMAL) COMPREHENSIVE METABOLIC PANEL (04/14/2008 8:31 AM CDT) ANION GAP 9 9 - 20 mEq/L [facility] POTASSIUM 4.6 3.5 - 5.0 mEq/L [facility] SODIUM 137 136 - 145 mEq/L [facility] BUN 19 9 - 20 mg/dL [facility] GLOBULIN (CALC) 3.4 2.4 - 3.9 g/dL [facility] ALT 28 4 - 36 IU/L [facility] BILIRUBIN TOTAL 0.5 0.3 - 1.2 mg/dL [facility] ALBUMIN 5.1(H) 3.5 - 5.0 g/dL [facility] CALCIUM 10.2 8.4 - 10.5 mg/dL [facility] CHLORIDE 104 95 - 110 mEq/L [facility] OSMOLALITY, CALCULATED 287 275 - 295 mOsm/Kg [facility] CO2 29 22 - 32 mmol/l [facility] ALBUMIN/GLOBULIN RATIO 1.5 1.0 - 2.3 [facility] ALKALINE PHOSPHATASE 72 25 - 100 U/L [facility] CREATININE 1.4 0.7 - 1.5 mg/dL [facility] AST 25 8 - 33 U/L [facility] TOTAL PROTEIN 8.5(H) 6.3 - 8.2 g/dL [facility] GLUCOSE 132(H) 70 - 110 mg/dL [facility] Blood specimen (specimen) 04/14/2008 8:31 AM CDT 04/14/2008 8:37 AM CDT us Marquis Kyle MD CHEMISTRY ORDERABLES Final Result INTERFACE SYSTEM Refer to clinic/hospital department [facility] CLIA# [id number] [address] [place] [address] * CBC WITHOUT DIFFERENTIAL (04/14/2008 8:31 AM CDT) HEMOGLOBIN 16.5 14.0 - 18.0 g/dL [facility] WBC 7.5 4.8 - 10.8 K/ul [facility] HEMATOCRIT 48.4 41.0 - 53.0 % [facility] RBC 5.34 4.60 - 6.20 Mil/ul [facility] PLATELETS 218 140 - 440 K/ul [facility] Blood specimen (specimen) 04/14/2008 8:31 AM CDT 04/14/2008 8:37 AM CDT Marquis Kyle MD HEMATOLOGY ORDERABLES Taylor l Result Performing Organization Address [facility] de Phone Number INTERFACE SYSTEM Refer to clinic/hospital department [facility] CLIA# [id number] [address] [place] [address] * (ABNORMAL) LIPID PANEL (04/14/2008 8:31 AM CDT) CHOLESTEROL 188 0 - 200 mg/dL [facility] Comment: On 11/30/2007 [facility] changed the cholesterol reference range to 0-200 mg/dl. This is the recommendation of the National Cholesterol Education Program (NCEP-ATPIII). CALCULATED TOTAL CHOLESTEROL TO HDL RATIO 5.22(H) 3.43 - 4.97 [facility] LDL CALCULATED 116(H) 0 - 100 mg/dL [facility] Comment: On 11/30/2007 [facility] changed the LDL reference range to 0- 100 mg/dl. This is the recommendation of the National Cholesterol Education Program (NCEP-ATPIII). TRIGLYCERIDE 179(H) 0 - 150 mg/dL [facility] Comment: On 11/30/2007, [facility] changed the triglyceride reference range to 0-150 mg/dl. This is the recommendation of the National Cholesterol Education Program (NCEP-ATPIII). HDL 36(L) 40 - 60 mg/dL [facility] Blood specimen (specimen) 04/14/2008 8:31 AM CDT 04/14/2008 8:37 AM CDT us Marquis Kyle MD CHEMISTRY ORDERABLES Final Result Performing Organization Address [facility] de Phone Number INTERFACE SYSTEM Refer to clinic/hospital department [facility] CLIA# [id number] [address] [place] [address] * TSH (04/14/2008 8:31 AM CDT) TSH 2.033 0.350 - 5.500 uIU/ml [facility] Blood specimen (specimen) 04/14/2008 8:31 AM CDT 04/14/2008 8:37 AM CDT us Marquis Kyle MD CHEMISTRY ORDERABLES Final Result INTERFACE SYSTEM Refer to clinic/hospital department [facility] CLIA# [id number] [facility] [place] [address] documented in this encounter Visit Diagnoses Diagnosis Other dyspnea and respiratory abnormality documented in this encounter Care Teams Customer Assistance Associate Relationship Specialty Start Date End Date Ramiro Villavicencio MD [address] [place] [address] PCP - General 08/16/03 documented as of this encounter
--- OUTSIDE RECORDS SUMMARY | 2025-02-03 11:18 | XMS_ITS | Patient Health Record ---
Author Organization [facility] Address [address] [place] [address] Care Team Providers Care Technical Service Engineer Name Role Phone Arpan Kovacs Unavailable Reason For Referral No Information Encounters Encounter Location Date Provider Diagnosis [facility] [address] [place] [address] 01/07/2025 Arpan Kovacs Assessments Encounter Date Diagnosis (ICD Code) Assessment Notes Treatment Notes Treatment Clinical Notes Section Notes 01/07/2025 Other Medications wer e reviewed. I will continue without changes. Nursing staff is to contact me with any symptoms arising. Orders signed and documented with nursing staff. Vitals taken and recorded at [facility]. Plan Of Treatment No Information
--- OUTSIDE RECORDS SUMMARY | 2025-02-03 11:18 | XMS_ITS | Encounter Summary ---
Author Organization [facility] Address [address] [facility] Attn: [place] [address] Care Team Providers Care Talent Acquisition Specialist Name Role Phone Ramiro Villavicencio MD Primary Care Provider [phone] Encounter Details Date Type Department Care Team (Late st Contact Info) Description 09/15/2000 Inpatient Historical Maverick Hernandez MD NO ADDRESS ON FILE Social History Tobacco Use Types Packs/Day Years Used Date Smoking Tobacco: Never Assessed Sex and Gender Information Value Date Recorded Sex Assigned at Not on file 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
--- OUTSIDE RECORDS SUMMARY | 2025-02-03 11:18 | XMS_ITS | Encounter Summary ---
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
--- OUTSIDE RECORDS SUMMARY | 2025-02-03 11:18 | XMS_ITS | Encounter Summary ---
Author Organization [facility] Address [address] [place] [address] Care Team Providers Care Gate Operator Name Role Phone Ramiro iVllavicencio MD Primary Care Provider [phone] Encounter Details Date Type Department Care Team (Latest Contact Info) Description 08/20/2004 Outpatient Historical [facility] Orthopedics- 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
--- OUTSIDE RECORDS SUMMARY | 2025-02-03 11:18 | XMS_ITS | Encounter Summary ---
Author Organization [facility] Address [address] [place] [address] Care Team Providers Care Lisw Name Role Phone Ramiro Villavicencio MD Primary Care Provider [phone] Encounter Details Date Type Department Care Team (Latest Contact Info) Description 09/01/2003 Outpatient Historical [facility] Orthopedics- 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
--- OUTSIDE RECORDS SUMMARY | 2025-02-03 11:18 | XMS_ITS | Encounter Summary ---
Author Organization 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
--- NOTE | 2025-02-03 11:22 | PC.NURSE ---
almaz patel upon arrival to obtain urine sample; Dr. Voss aware.
[2025-02-03 11:40] LABS: Hematocrit 21.5 % (37-53); Hemoglobin 6.70 g/dL (11.27-16.99); Mean Corpuscular HGB Conc 31.2 g/dL (30-55); Mean Corpuscular Hemoglobin 27.3 pg (27-33); Mean Corpuscular Volume 87.8 fl (82-101); Nucleated Red Blood Cells % 0 %; Platelet Count 376 10^3/cmm (157-399); Red Blood Count 2.45 10^6/uL (3.85-5.65); White Blood Count 12.99 10^3/uL (3.29-11.43)
--- NOTE | 2025-02-03 11:54 | PC.NURSE ---
obtained urine sample from catheter, used alcohol swab to clean hub; unclamped patel catheter
[2025-02-03 11:56] LABS: Lactic Sepsis W/Reflex 0.8 mmol/L (0.5-2.2)
[2025-02-03 11:57] LABS: Alanine Aminotransferase 22 U/L (0-41); Albumin Level 4.1 g/dL (3.5-5.2); Alkaline Phosphatase 120 U/L (40-130); Calcium 9.2 mg/dL (8.5-10.5); Carbon Dioxide 13 mmol/L (22-29); Chloride 99 mmol/L (98-107); Creatinine Clr Calc Pharmacy 8.8205; Globulin 3.5 g/dL (1.3-4.6); Glucose 117 mg/dL (65-115); Magnesium 2.1 mg/dL (1.7-2.3); Osmolality Calculated 300 mOsm/kg (285-295); Sodium 131 mmol/L (136-145); Total Protein 7.6 g/dL (6.6-8.7)
[2025-02-03 12:00] LABS: Glucose Urine UA Negative (Normal); Nitrate Urine Positive (Negative); Specific Gravity, Urine 1.012 (1.005-1.030)
[2025-02-03 12:00] LABS: Anion Gap 23.0 (5-19); Aspartate Amino Transferase 12 U/L (0-40); Potassium 4.0 mmol/L (3.5-5.1)
[2025-02-03 12:01] LABS: Blood Urea Nitrogen 87 mg/dL (8-23)
[2025-02-03 12:03] LABS: Add Urine Microscopic? YES
--- NOTE | 2025-02-03 12:21 | PC.NURSE ---
per KENNY Larios pt did have dialysis at one point, unsure of when it was, states was admitted to [facility] on 01/06/2025; pt adamantly refused dialysis at this time. pt was previously at [facility]
--- NOTE | 2025-02-03 12:30 | PC.NURSE ---
per daughter, pt received dialysis from Mar 2023 to Jul 2023. states pt is not willing to start treatment again, did have dialysis port, but had it removed.
[2025-02-03] MEDS: cefTRIAXone 1,000 mg SDV 1000 MG IVP ×2 (12:58→16:05)
[2025-02-03] MEDS: AZITHROMYCIN ADD-Vantage 500 MG in 0.9% NaCl ADD-Vantage 250 ML 250 MG IV (12:58)
--- NOTE | 2025-02-03 13:21 | PC.PHAR ---
[facility]
--- NOTE | 2025-02-03 13:35 | PC.NURSE ---
this nurse assumed pt care from KENNY Oh at 1300.
--- NOTE | 2025-02-03 14:22 | PC.NURSE ---
Per provider Junior Bernal is called and talked with KENNY Larios, Patients patel catheter was last changed on January 09, 2025. Provider asked nursing staff to change his patel after his CT scan.
--- NOTE | 2025-02-03 14:26 | CTR_ITS ---
PROCEDURE INFORMATION: Exam: CT Abdomen And Pelvis Without Contrast Exam date and time: 02/03/2025 2:42 PM Age: 79 years old Clinical indication: Other: Mike on ckd TECHNIQUE: Imaging protocol: Computed tomography of the abdomen and pelvis without contrast. Radiation optimization: All CT scans at this facility use at least one of these dose optimization techniques: automated exposure control; mA and/or kV adjustment per patient size (includes targeted exams where dose is matched to clinical indication); or iterative reconstruction. COMPARISON: CT abdomen pelvis wo con [id number] 07/12/2024 8:59 PM RADIATION DOSE METRICS: Total DLP (mGy-cm): 901.95 FINDINGS: Pleural spaces: Dnqq-[id number]-right posterior bibasilar effusions with associated atelectasis. Benign calcified granulomas left lung base. Coronary arteries: Partially visualized coronary artery calcification. Liver: Very small benign calcified granulomas scattered within the liver. Liver demonstrates mild lobular contour and otherwise unremarkable. No significant change with previous exam. Gallbladder and biliary ducts: Normal. No calcified stones. No ductal dilation. Pancreas: Normal. No ductal dilation. Spleen: Scattered small benign calcified granulomas within the spleen, which is otherwise unremarkable for noncontrast exam. Adrenal glands: Bilateral low-density enlargement of both adrenal glands that appears unchanged or stable with previous exam. Kidneys and ureters: Bilateral renal cysts when correlated with prior exam, with largest on the right measuring approximately 5 cm within the lower pole with largest on the left measuring 5.2 cm within the lower pole. These appear unchanged. Increased prominence of the left renal pelvis and collecting structures of the left kidney noted in relation to prior exam suggesting [id number] hydronephrosis. No hydronephrosis is seen on the right. No ureterectasis is seen about either side. No renal or ureteral calculus identified. Stomach and bowel: Dehiscence of the anterior abdominal wall containing small and large bowel loops without obstruction, as noted with prior exam. Mild scattered colonic diverticulosis without findings of diverticulitis. Moderate stool volume in the colon. Appendix: No evidence of appendicitis. Intraperitoneal space: No significant free fluid or ascites. No free air. Vasculature: [id number] atherosclerotic calcification without aneurysmal dilatation of the abdominal aorta. Lymph nodes: No significant lymph node enlargement or lymphadenopathy. Urinary bladder: A Conteh catheter is seen within the urinary bladder which is not well distended and with mild generalized wall thickening secondarily. Reproductive: Unremarkable as visualized. Bones/joints: Degenerative changes with component of degenerative disc disease within the visualized spine. Soft tissues: Small fat containing bilateral inguinal hernias as noted with prior exam. CT/CT abdomen pelvis wo con [id number] IMPRESSION: 1. Findings suggesting interval new increased prominence of the pelvicaliceal collecting structures of the left kidney in relation to the right in relation to previous exam suggesting [id number] hydronephrosis, without findings of ureterectasis without findings of urinary tract stone. Etiology of interval change not apparent. 2. Bilateral renal cysts appear unchanged with previous exam. 3. Conteh catheter within the urinary bladder which is not well distended and with mild generalized wall thickening. Correlate with urinalysis otherwise. 4. Chronic changes otherwise with previous exam as noted above.
--- NOTE | 2025-02-03 14:41 | PM.HP ---
Providers/Chief Complaint Admitting Physician: Baljit Marcelo MD Chief Complaint: ams History of Present Illness Jhon Marcos is a 79 year old male With past medical history of chronic kidney disease, was on dialysis in the past, chronic recurrent anemia, CHF, A-fib off anticoagulation, BPH, cardiomyopathy EF 40%, CAD post PCI, post EGD in September 2024 which was normal, chronic Conteh, sent to the ER today from SNF with concerns for lethargy. As per the long-term patient has not been eating well as he used to before. Examination patient is laying comfortably in bed wakes up to verbal stimulation. On waking up he is awake and alert. States he was sent to the ER because he was found to have low hemoglobin. Denies any abdominal pain. States last bowel movement was and was regular. Denies any diarrhea, nausea or vomiting. Denies any difficulty in breathing. Currently is on room air. Review of Systems General: Reports: 10 or more systems reviewed and unremarkable except in HPI and below Const: Denies: fever(s), chills, body aches, change in appetite, change in weight, malaise, night sweats, diaphoresis, change in sleep pattern, daytime sleepiness or snoring Eyes: Denies: change in vision, blurry vision, photophobia, eye discomfort or eye discharge ENMT: Denies: throat pain, enlarged tonsils, hoarseness, mouth pain, oral sores, dry mouth, tinnitus, nasal congestion or post nasal drip Card: Denies: chest pain, palpitations, irregular heart rhythm, edema, swelling of feet/ankles, lightheadedness, syncope, pre-syncope, dyspnea on exertion, orthopnea, leg pain with exertion or acrocyanosis Resp: Denies: dyspnea, productive cough, non-productive cough, wheezing, stridor, pain on inspiration, change in phlegm color, hemoptysis or chest congestion GI: Denies: abdominal pain, nausea, vomiting, hematemesis, coffee ground emesis, dysphagia, heartburn, diarrhea, constipation, bloating, GI cramping, change in bowel habits, pain on defecation, hematochezia or melena : Denies: flank pain, difficulty urinating, dysuria, urinary frequency, urinary urgency, urinary hesitancy, urinary dribbling, difficulty starting urination, change in urine stream, nocturia or hematuria Musc: Denies: neck pain, back pain, extremity pain, joint pain, joint swelling, joint redness, joint stiffness or limited range of motion Neuro: Denies: headache(s), numbness in extremities, weakness in extremities, sensory changes, lack of coordination, difficulty walking, frequent falls, dizziness, vertigo, confusion, Slurred speech present, difficulty communicating thoughts or seizure-like activity Psych: Denies: anxiety, depression, mood swings, panic attacks, hopelessness or irritability Endo: Denies: polyuria, polydipsia, tired all the time, cold intolerance, excessive sweating, flushing or heat intolerance Sebastian/Lymph: Denies: easy bruising or easy bleeding All/Imm: Denies: tongue swelling, facial swelling or acute wheezing Medications/Allergies Home Medications ?Medication ?Instructions ?Recorded ?Confirmed ?Last Taken ?Type cyanocobalamin (vitamin B-12) 1,000 mcg SUBCUT DAILY 05/01/23 02/03/25 02/03/25 08:05 History 1,000 mcg/mL injection solution sodium phosphates 19 gram-7 118 ml NJ DAILY PRN Constipation 05/01/23 02/03/25 Unknown History gram/118 mL enema (Fleet Enema) bisacodyl 10 mg rectal suppository 10 mg NJ DAILY PRN Constipation 05/17/23 02/03/25 Unknown History albuterol sulfate 2.5 mg/3 mL 2.5 mg inhalation Q4H PRN SOB 07/12/24 02/03/25 Unknown History (0.083 %) solution for nebulization artifi.tears(hypromellose)(PF) 1.7 1 drp ophthalmic (eye) BID PRN Dry 07/12/24 02/03/25 10/23/24 History % eye drops with applicator Eyes citalopram 20 mg tablet 20 mg PO DAILY 07/12/24 02/03/25 02/03/25 08:05 History docusate sodium 100 mg capsule 100 mg PO DAILY 07/12/24 02/03/25 02/03/25 08:05 History (Colace) ondansetron HCl 4 mg tablet 4 mg PO Q4H PRN Nausea And Vomiting 07/12/24 02/03/25 Unknown History trazodone 50 mg tablet 50 mg PO BEDTIME 07/12/24 02/03/25 02/02/25 20:50 History pantoprazole 40 mg tablet,delayed 40 mg PO DAILY #60 tabs 07/15/24 02/03/25 02/03/25 08:05 Rx release sodium bicarbonate 650 mg tablet 650 mg PO BID 30 days #60 tabs 07/15/24 02/03/25 02/03/25 08:05 Rx alprazolam 0.5 mg tablet 0.5 mg PO Q8H PRN Anxiety 10/19/24 02/03/25 02/03/25 08:05 History isosorbide mononitrate 30 mg 30 mg PO DAILY #90 tabs 10/19/24 02/03/25 02/03/25 08:05 Rx tablet,extended release 24 hr nitroglycerin 0.4 mg sublingual 0.4 mg sublingual Q5M PRN chest 10/19/24 02/03/25 Unknown Rx tablet pain #20 tabs albuterol sulfate 90 mcg/actuation 1 inh inhalation Q6H PRN shortness 10/24/24 02/03/25 Unknown History aerosol inhaler (Ventolin HFA) of breath or wheezing amiodarone 200 mg tablet (Pacerone) 200 mg PO DAILY 10/24/24 02/03/25 02/03/25 08:05 History dextromethorphan-guaifenesin 5 10 ml PO Q4H PRN Cough 10/24/24 02/03/25 10/22/24 History mg-100 mg/5 mL oral liquid (Robitussin Cough-Chest Congestion DM) diltiazem HCl 120 mg tablet 240 mg PO DAILY 10/24/24 02/03/25 02/03/25 08:05 History furosemide 40 mg tablet (Lasix) 40 mg PO BIDWM weight gain 30 days 10/28/24 02/03/25 02/03/25 08:05 Rx #60 tabs acetaminophen 325 mg tablet 650 mg PO QID PRN Fever Or Pain 02/03/25 02/03/25 02/01/25 07:00 History (Tylenol) acyclovir 200 mg capsule 200 mg PO Q12H 02/03/25 02/03/25 01/26/25 08:05 History gabapentin 100 mg capsule 100 mg PO DAILY 02/03/25 02/03/25 02/03/25 08:05 History polyethylene glycol 3350 17 17 g PO DAILY 02/03/25 02/03/25 02/03/25 08:05 History gram/dose oral powder (Miralax) tramadol 50 mg tablet 50 mg PO QID 02/03/25 02/03/25 02/02/25 09:20 History Allergies Allergy/AdvReac Type Severity Reaction Status Date / Time Penicillins Allergy Unknown Unknown Verified 12/16/24 09:15 PFSH Acute PFSH: Medical History (Updated 02/03/25 @ 14:48 by Baljit Marcelo MD) CAD (coronary artery disease) Intra-abdominal abscess Acute GI bleeding Atrial fibrillation with RVR NSTEMI (non-ST elevated myocardial infarction) Bilateral pleural effusion C. difficile colitis Systolic CHF Renal failure (ARF), acute on chronic AMS (altered mental status) Metabolic encephalopathy Expressive aphasia End stage renal disease Right leg DVT Iliac DVT (deep venous thrombosis) Pleural effusion, left CHRISTY (obstructive sleep apnea) Eosinophilic asthma History of stroke BPH (benign prostatic hyperplasia) Myocardial infarct ASHD (arteriosclerotic heart disease) Diabetes 1.5, managed as type 2 HTN (hypertension) Hyperlipidemia Surgical History (Updated 02/03/25 @ 14:48 by Baljit Marcelo MD) History of knee replacement (~2014) History of shoulder replacement S/P shoulder replacement S/P knee replacement H/O esophagogastroduodenoscopy (09/26/20) Last EGD on 10/19?reported normal History of colonoscopy (09/26/20) S/P PTCA (percutaneous transluminal coronary angioplasty) Family History Mother Dementia Denies family history of Family history of premature coronary artery disease Social History Smoking and tobacco/nicotine status: former use of tobacco/nicotine Quit status (tobacco/nicotine): has quit using Year quit tobacco: 1971 Former quit date comment: 2ppd x 10 years Alcohol intake: never Household members: spouse Marital status: service: No Current occupational status: retired Vitals/I&O/Wt Last Vital Signs Temp 97.8 F 02/03/25 14:00 Pulse 60 02/03/25 14:00 Resp 16 02/03/25 14:00 BP 143/74 02/03/25 14:00 Pulse Ox 100 02/03/25 14:00 O2 Del Method Room Air 02/03/25 13:35 02/02/25 02/03/25 02/03/25 22:59 06:59 14:59 Intake Total 0 / 0 Balance 0 / 0 Weight last 48 hrs Weight 86.183 kg Physical Exam Narrative: General: No acute distress, AO x3, chronically sick appearing, weak, pallor present HEENT: PERRLA, pupils bilaterally equal and reactive Chest: Normal vesicular breath sounds, no added sounds, equal good air entry bilaterally CVS: S1-S2 regular, no murmurs, no tachycardia, no gallops, no rubs Abdomen: Soft, nontender, no organomegaly, bowel sounds present Neuro: No focal deficits, no facial deformity, AO x3, power 5/5 in all limbs Data 02/03/25 11:16 02/03/25 11:16 Micro: Microbiology 02/03/25 12:14 Blood Culture - Preliminary Blood SPECIMEN COLLECTED 02/03/25 11:33 Blood Culture - Preliminary Blood SPECIMEN COLLECTED A&P Assessment and plan 1. Acute on chronic renal failure: Baseline creatinine of around 5-5.6. Currently 7.4. Patient used to be on hemodialysis till last year but then he decided not to pursue dialysis any further. Patient maintains he does not want to pursue any dialysis going forward. Associated with metabolic acidosis. Nephrology consulted from the ER. Can plan for bicarb drip. Monitor BMP every 12 hours. Associated with uremia which also I think is causing lethargy. Monitor urine output. Conteh catheter in place. Will replace Conteh if not changed in last 3 to 4 weeks. 2. Anemia due to chronic kidney disease: Baseline hemoglobin around 7.8-7.9. Currently 6.7. Patient denies any melena. Had EGD earlier this year which was reported normal. Could be in setting of anemia of chronic disease due to CKD. Check iron panel, vitamin B12, folate level, reticulocyte count. Transfuse 1 unit of PRBC. Target hemoglobin around 8 given history of CAD. Monitor for fluid overload. 3. Uremia: 4. Lethargy: Most likely in setting of acute on chronic anemia and uremia. Continue to monitor. Cannot rule out UTI. Patient does have mild leukocytosis which again can be reactive in setting of anemia. Check urinalysis, blood culture. 5. Heart failure with reduced ejection fraction: Currently patient is euvolemic. Last echocardiogram from November 2024 showed an EF of 40 to 45%, grade 2 diastolic dysfunction. Monitor for fluid overload. 6. CAD (coronary artery disease): No active chest pain. History of post PCI. Check A1c, lipid panel. 7. High anion gap metabolic acidosis: 8. HTN (hypertension): Goal blood pressure less than 140/90 mmHg. Continue with home dose of Cardizem, Imdur. Plan: History of atrial fibrillation: Monitor on telemetry. Currently rate controlled. Change Cardizem to 60 mg Q6 hourly. Continue home dose of amiodarone. Chronically not on anticoagulation due to history of anemia. UTI: Patient has chronic indwelling Conteh catheter. He denies dysuria. Does have leukocytosis. Lethargy could be in setting of UTI. History of Enterococcus VRE UTI. For now start patient on oral linezolid 600 mg twice daily as per culture sensitivities in the past. Add IV ceftriaxone 1 g daily for gram-negative coverage. CODE STATUS: Discussed detail with the patient. Patient's daughter will be DPOA. He wants to be full code. But does not want dialysis even if it means he has been on diet without one. Protonix for PUD prophylaxis SCD for DVT prophylaxis if lower limb Dopplers negative for DVT. No medical prophylaxis as patient has anemia. Renal dialysis diet. PDMP PDMP Reviewed: Not Reviewed Attestations Medical Necessity Statement*: Admission for more than 2 midnights for management of lethargy in setting of uremia, MAYTE on CKD, acute on chronic anemia requiring blood transfusion Diagnoses Acute on chronic renal failure N17.9; N18.9 Anemia due to chronic kidney disease N18.9; D63.1 Uremia N19 Lethargy R53.83 Heart failure with reduced ejection fraction I50.20 CAD (coronary artery disease) I25.10 High anion gap metabolic acidosis E87.29 HTN (hypertension) I10
[2025-02-03 15:00] LABS: Estmated Average Glucose 111; Hemoglobin A1C 5.5 % (4.0-6.0)
[2025-02-03 15:06] LABS: Procalcitonin 0.23 ng/mL (0-0.5); Vitamin B12 1117 pg/mL (232-1245)
[2025-02-03 15:18] LABS: Iron 29 ug/dL (59-158)
[2025-02-03 15:32] LABS: Total Iron Binding Capacity 306 mcg/dl; Unsaturated Iron Binding 277 ug/dL (112-347)
--- NOTE | 2025-02-03 15:47 | PM.CONSULT ---
Providers/Reason For Consult Consulting Physician/Specialty*: kommana /Nephrology Reason for Consult*: Acute on CKD Attending Physician: Baljit Marcelo MD History of Present Illness History of Present Illness Jhon Marcos is a 79 year old male With past medical history significant for chronic kidney disease stage IV was briefly on dialysis in the past, coronary artery disease with PCI's, CHF A-fib cardiomyopathy with ejection fraction 40% presented to the emergency department from SNF due to altered mental status and poor p.o. intake. Patient is somewhat confused. Currently on room air lab data significant for white count of 12,000, hemoglobin was 6.7, sodium was 131, creatinine was 7.4 with a BUN of 87. UA was consistent with UTI. Patient was noted to be lethargic . Review of Systems Narrative: Review of systems negative Medications/Allergies Home Medications ?Medication ?Instructions ?Recorded ?Confirmed ?Last Taken ?Type cyanocobalamin (vitamin B-12) 1,000 mcg SUBCUT DAILY 05/01/23 02/03/25 02/03/25 08:05 History 1,000 mcg/mL injection solution sodium phosphates 19 gram-7 118 ml MD DAILY PRN Constipation 05/01/23 02/03/25 Unknown History gram/118 mL enema (Fleet Enema) bisacodyl 10 mg rectal suppository 10 mg MD DAILY PRN Constipation 05/17/23 02/03/25 Unknown History albuterol sulfate 2.5 mg/3 mL 2.5 mg inhalation Q4H PRN SOB 07/12/24 02/03/25 Unknown History (0.083 %) solution for nebulization artifi.tears(hypromellose)(PF) 1.7 1 drp ophthalmic (eye) BID PRN Dry 07/12/24 02/03/25 10/23/24 History % eye drops with applicator Eyes citalopram 20 mg tablet 20 mg PO DAILY 07/12/24 02/03/25 02/03/25 08:05 History docusate sodium 100 mg capsule 100 mg PO DAILY 07/12/24 02/03/25 02/03/25 08:05 History (Colace) ondansetron HCl 4 mg tablet 4 mg PO Q4H PRN Nausea And Vomiting 07/12/24 02/03/25 Unknown History trazodone 50 mg tablet 50 mg PO BEDTIME 07/12/24 02/03/25 02/02/25 20:50 History pantoprazole 40 mg tablet,delayed 40 mg PO DAILY #60 tabs 07/15/24 02/03/25 02/03/25 08:05 Rx release sodium bicarbonate 650 mg tablet 650 mg PO BID 30 days #60 tabs 07/15/24 02/03/25 02/03/25 08:05 Rx alprazolam 0.5 mg tablet 0.5 mg PO Q8H PRN Anxiety 10/19/24 02/03/25 02/03/25 08:05 History isosorbide mononitrate 30 mg 30 mg PO DAILY #90 tabs 10/19/24 02/03/25 02/03/25 08:05 Rx tablet,extended release 24 hr nitroglycerin 0.4 mg sublingual 0.4 mg sublingual Q5M PRN chest 10/19/24 02/03/25 Unknown Rx tablet pain #20 tabs albuterol sulfate 90 mcg/actuation 1 inh inhalation Q6H PRN shortness 10/24/24 02/03/25 Unknown History aerosol inhaler (Ventolin HFA) of breath or wheezing amiodarone 200 mg tablet (Pacerone) 200 mg PO DAILY 10/24/24 02/03/25 02/03/25 08:05 History dextromethorphan-guaifenesin 5 10 ml PO Q4H PRN Cough 10/24/24 02/03/25 10/22/24 History mg-100 mg/5 mL oral liquid (Robitussin Cough-Chest Congestion DM) diltiazem HCl 120 mg tablet 240 mg PO DAILY 10/24/24 02/03/25 02/03/25 08:05 History furosemide 40 mg tablet (Lasix) 40 mg PO BIDWM weight gain 30 days 10/28/24 02/03/25 02/03/25 08:05 Rx #60 tabs acetaminophen 325 mg tablet 650 mg PO QID PRN Fever Or Pain 02/03/25 02/03/25 02/01/25 07:00 History (Tylenol) acyclovir 200 mg capsule 200 mg PO Q12H 02/03/25 02/03/25 01/26/25 08:05 History gabapentin 100 mg capsule 100 mg PO DAILY 07/05/2102/03/25 02/03/25 08:05 History polyethylene glycol 3350 17 17 g PO DAILY 02/03/25 02/03/25 02/03/25 08:05 History gram/dose oral powder (Miralax) tramadol 50 mg tablet 50 mg PO QID 02/03/25 02/03/25 02/02/25 09:20 History Allergies Allergy/AdvReac Type Severity Reaction Status Date / Time Penicillins Allergy Unknown Unknown Verified 12/16/24 09:15 Current Medications Generic Name Dose Route Start Last Admin Trade Name Freq PRN Reason Stop Dose Admin Sodium Bicarbonate 150 meq/ 1,150 mls @ 100 mls/hr 02/03/25 09:45 02/03/25 14:55 Dextrose IV 100 mls/hr .[id number] JOSEPHINE Administration Sodium Chloride 50 ml 02/03/25 11:54 02/03/25 13:49 Sodium Chloride 0.9% 100 Ml Bag IV 02/04/25 11:54 50 ml PRN PRN Administration Blood transfusion prime and flush PFSH Acute PFSH: Medical History (Updated 02/03/25 @ 14:48 by Baljit Marcelo MD) CAD (coronary artery disease) Intra-abdominal abscess Acute GI bleeding Atrial fibrillation with RVR NSTEMI (non-ST elevated myocardial infarction) Bilateral pleural effusion C. difficile colitis Systolic CHF Renal failure (ARF), acute on chronic AMS (altered mental status) Metabolic encephalopathy Expressive aphasia End stage renal disease Right leg DVT Iliac DVT (deep venous thrombosis) Pleural effusion, left CHRISTY (obstructive sleep apnea) Eosinophilic asthma History of stroke BPH (benign prostatic hyperplasia) Myocardial infarct ASHD (arteriosclerotic heart disease) Diabetes 1.5, managed as type 2 HTN (hypertension) Hyperlipidemia Surgical History (Updated 02/03/25 @ 14:48 by Baljit Marcelo MD) History of knee replacement (~2014) History of shoulder replacement S/P shoulder replacement S/P knee replacement H/O esophagogastroduodenoscopy (09/26/20) Last EGD on 10/19?reported normal History of colonoscopy (09/26/20) S/P PTCA (percutaneous transluminal coronary angioplasty) Family History (Updated 02/03/25 @ 16:25 by Susanne Wilde MD) Mother Dementia Other Acute on chronic renal failure Denies family history of Family history of premature coronary artery disease Social History Smoking and tobacco/nicotine status: former use of tobacco/nicotine Quit status (tobacco/nicotine): has quit using Year quit tobacco: 1971 Former quit date comment: 2ppd x 10 years Alcohol intake: never Household members: spouse Marital status: service: No Current occupational status: retired Vitals/I&O/Wt Last Vital Signs Temp 97.8 F 02/03/25 14:00 Pulse 60 02/03/25 14:00 Resp 16 02/03/25 14:00 BP 143/74 02/03/25 14:00 Pulse Ox 100 02/03/25 14:00 O2 Del Method Room Air 02/03/25 13:35 02/03/25 02/03/25 02/03/25 06:59 14:59 22:59 Intake Total 0 / 0 Balance 0 / 0 Weight last 48 hrs Weight 86.183 kg Physical Exam Narrative: Patient confused, in no acute distress, room air PERRLA S1-S2 regular rate and rhythm per report Lungs with decreased breath sounds bilaterally Abdomen soft nontender no pedal edema Data 02/03/25 11:16 02/03/25 11:16 Micro: Microbiology 02/03/25 12:14 Blood Culture - Preliminary Blood SPECIMEN COLLECTED 02/03/25 11:33 Blood Culture - Preliminary Blood SPECIMEN COLLECTED A&P Assessment and plan 1. Anemia due to chronic kidney disease: Plan: 1. 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 Baseline creatinines are in the 4-5 range. Patient currently has MAYTE with a creatinine up to 7.4, likely ATN in the setting of acute infection did not. Nonoliguric, has uremia with a BUN of 87 and metabolic acidosis with a bicarbonate of 13. - Will place the patient on bicarbonate drip - Proposed initiation of dialysis if no improvement in renal function back to baseline but patient declines dialysis at this time. - Will check urine electrolytes, avoid IV contrast studies 2. Altered mental status/lethargy: Likely metabolic encephalopathy in the setting of uremia and UTI 3. Metabolic acidosis with high anion gap, in the setting of MAYTE, placed on bicarbonate drip 4. History of coronary artery disease, with with stents 5. History of CHF with ejection fraction 40%, holding diuretics Patient evaluated using audiovisual cart. Time spent 40 minutes PDMP PDMP Reviewed: Not Reviewed Consult Attestations Medical Necessity Statement: per medicne Coding Level of Care Code Acute Code for Chg Fwd Diagnoses Anemia due to chronic kidney disease N18.9; D63.1
[2025-02-03] MEDS: pantoprazole 40 mg SDV IVP (16:05)
[2025-02-03] MEDS: iron sucrose 200 MG in sodium chloride 0.9% (100 ml) 100 ML 220 MG IV (16:37)
--- NOTE | 2025-02-03 17:25 | PC.NURSE ---
per Dr Marcelo, if the patient becomes hypoxic, decrease sodium bicarb to 50ml / hr.
[2025-02-04] VITALS (17 sets, daily range): BP systolic 119–157; BP diastolic 55–76; PULSE 74–83; RESP 14–21; TEMP 36.2–37; O2SAT 92–99
[2025-02-04] MEDS: pantoprazole 40 mg SDV IVP ×2 (02:30→14:17)
[2025-02-04 04:02] LABS: Hemoglobin 6.70 g/dL (11.27-16.99); Mean Corpuscular HGB Conc 32.5 g/dL (30-55); Mean Corpuscular Hemoglobin 27.7 pg (27-33); Mean Corpuscular Volume 85.1 fl (82-101); Nucleated Red Blood Cells % 0 %; Platelet Count 319 10^3/cmm (157-399); Red Blood Count 2.42 10^6/uL (3.85-5.65); White Blood Count 7.79 10^3/uL (3.29-11.43)
[2025-02-04 04:09] LABS: Hematocrit 20.6 % (37-53)
[2025-02-04 04:25] LABS: Alanine Aminotransferase 18 U/L (0-41); Albumin Level 3.7 g/dL (3.5-5.2); Alkaline Phosphatase 101 U/L (40-130); Anion Gap 21.1 (5-19); Aspartate Amino Transferase 8 U/L (0-40); Calcium 8.9 mg/dL (8.5-10.5); Carbon Dioxide 16 mmol/L (22-29); Chloride 98 mmol/L (98-107); Creatinine Clr Calc Pharmacy 9.3484; Globulin 2.9 g/dL (1.3-4.6); Glucose 92 mg/dL (65-115); Magnesium 1.9 mg/dL (1.7-2.3); Osmolality Calculated 299 mOsm/kg (285-295); Potassium 3.1 mmol/L (3.5-5.1); Sodium 132 mmol/L (136-145); Total Protein 6.6 g/dL (6.6-8.7)
[2025-02-04 04:27] LABS: Cholesterol 120 mg/dL (0-200); HDL Cholesterol 34 mg/dL (60-100); Triglycerides 98 mg/dL (0-150)
[2025-02-04 04:33] LABS: Procalcitonin 0.20 ng/mL (0-0.5)
[2025-02-04 04:37] LABS: Blood Urea Nitrogen 85 mg/dL (8-23)
--- NOTE | 2025-02-04 04:47 | PC.NURSE ---
Notified Dr. Delcid patient has low potassium of 3.1. Received orders for 40 meq PO of potassium once
--- NOTE | 2025-02-04 08:31 | PC.NURSE ---
prbc's infused.vss.no s/sxs transfusion reaction noted
--- NOTE | 2025-02-04 09:20 | PC.SOCIAL ---
IMM Update pg 2 of IMM Updated and reviewed w/ patient. Copy provided and copy dated, initialed and placed in chart.
[2025-02-04] MEDS: morphine 4 mg/mL SDV 1 mL 2 MG IVP (10:27)
--- NOTE | 2025-02-04 12:22 | P.PN_ITS ---
Subjective 2 Subjective: more alert today Medications: Reviewed: Yes Vitals/I&O/Wt Last Vital Signs Temp 97.9 F 02/04/25 12:00 Pulse 77 02/04/25 12:00 Resp 18 02/04/25 12:00 BP 149/76 02/04/25 12:00 Pulse Ox 96 02/04/25 12:00 O2 Del Method Room Air 02/04/25 12:00 02/03/25 02/04/25 02/04/25 22:59 06:59 14:59 Intake Total 1190 / 1190 1150 / 2340 590 / 590 Output Total 350 / 350 2221 / 2571 700 / 700 Balance 840 / 840 -1071 / -231 -110 / -110 Weight last 48 hrs Weight 94.517 kg Weight 86.693 kg Weight 86.183 kg Physical Exam 2 Narrative: Patient awake , alert , in no acute distress, room air PERRLA S1-S2 regular rate and rhythm per report Lungs with decreased breath sounds bilaterally Abdomen soft nontender no pedal edema Urinary Catheter Management: Conteh: Cath Placed During This Visit: yes Reason for Continuing Indwelling Catheter: Accurate Measurement of Urinary Output in Critically Ill Patients Urinary Catheter Date of Insertion: 02/03/25 Urinary Catheter Time of Insertion: 14:00 Data 02/04/25 03:47 02/04/25 03:47 Micro: Microbiology 02/03/25 11:33 Blood Culture - Preliminary Blood NEGATIVE TO DATE 02/04/25 10:33 Bacterial Antigens - Final Urine Kidney 02/04/25 10:33 Legionella Urinary Antigen - Final Urine Catheterized 02/03/25 11:53 Urine Culture - Preliminary Urine,Clean Catch Gram Negative Rods 02/03/25 12:14 Blood Culture - Preliminary Blood SPECIMEN COLLECTED A&P Assessment and plan 1. Anemia due to chronic kidney disease: Plan: 1. 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 Baseline creatinines are in the 4-5 range. Patient currently has MAYTE with a creatinine up to 7.4, likely ATN in the setting of acute infection did not. Nonoliguric, has uremia with a BUN of 87 and metabolic acidosis with a bicarbonate of 13. - on bicarbonate drip - Proposed initiation of dialysis if no improvement in renal function but patient declines dialysis at this time. - Will check urine electrolytes, avoid IV contrast studies 2. Altered mental status/lethargy: Likely metabolic encephalopathy in the setting of uremia and UTI 3. Metabolic acidosis with high anion gap, in the setting of MAYTE, placed on bicarbonate drip 4. History of coronary artery disease, with with stents 5. History of CHF with ejection fraction 40%, holding diuretics Patient evaluated using audiovisual cart. Time spent 40 minutes PDMP PDMP Reviewed: Not Reviewed Attestations 2 Medical Necessity Statement*: per lily Coding Level of Care Code Acute Code for Chg Fwd Diagnoses Anemia due to chronic kidney disease N18.9; D63.1
--- NOTE | 2025-02-04 12:29 | P.PN_ITS ---
Subjective 2 Subjective: No acute events overnight. Today morning examination patient states he is feeling a lot better. Complaining of pain in his left shoulder with seems to be chronic along with left back with radiation down his legs. Denies any nausea, vomiting, headache. Awake and alert. Medications: Reviewed: Yes Vitals/I&O/Wt Last Vital Signs Temp 97.9 F 02/04/25 12:00 Pulse 77 02/04/25 12:00 Resp 18 02/04/25 12:00 BP 149/76 02/04/25 12:00 Pulse Ox 96 02/04/25 12:00 O2 Del Method Room Air 02/04/25 12:00 02/03/25 02/04/25 02/04/25 22:59 06:59 14:59 Intake Total 1190 / 1190 1150 / 2340 590 / 590 Output Total 350 / 350 2221 / 2571 700 / 700 Balance 840 / 840 -1071 / -231 -110 / -110 Weight last 48 hrs Weight 94.517 kg Weight 86.693 kg Weight 86.183 kg Physical Exam 2 Narrative: General: No acute distress, AO x3, chronically sick appearing, weak, pallor present HEENT: PERRLA, pupils bilaterally equal and reactive Chest: Normal vesicular breath sounds, no added sounds, equal good air entry bilaterally CVS: S1-S2 irregularly irregular, soft pansystolic murmurs at apex, no tachycardia, no gallops, no rubs Abdomen: Soft, nontender, no organomegaly, bowel sounds present Neuro: No focal deficits, no facial deformity, AO x3, power 5/5 in all limbs Urinary Catheter Management: Conteh: Cath Placed During This Visit: yes Reason for Continuing Indwelling Catheter: Accurate Measurement of Urinary Output in Critically Ill Patients Urinary Catheter Date of Insertion: 02/03/25 Urinary Catheter Time of Insertion: 14:00 Data 02/04/25 03:47 02/04/25 03:47 Micro: Microbiology 02/03/25 12:14 Blood Culture - Preliminary Blood NEGATIVE TO DATE 02/03/25 11:33 Blood Culture - Preliminary Blood NEGATIVE TO DATE 02/04/25 10:33 Bacterial Antigens - Final Urine Kidney 02/04/25 10:33 Legionella Urinary Antigen - Final Urine Catheterized 02/03/25 11:53 Urine Culture - Preliminary Urine,Clean Catch Gram Negative Rods A&P Assessment and plan 1. Acute on chronic renal failure: Baseline creatinine of around 5-5.6. Currently more than 7. Appreciate nephrology recommendations. Patient used to be on hemodialysis till last year but then he decided not to pursue dialysis any further. Patient maintains he does not want to pursue any dialysis going forward. Associated with metabolic acidosis. Continue with bicarb drip at 100 cc/h. Monitor urine output. Repeat BMP in afternoon. Does have mild hypokalemia today. Replace with 40 mill equivalents orally. 2. Anemia due to chronic kidney disease: Baseline hemoglobin around 7.8-7.9. Post 1 units of blood transfusion. Remains below target of 8. Patient denies any melena. Had EGD earlier this year which was reported normal. Could be in setting of anemia of chronic disease due to CKD. Appreciate iron panel, vitamin B12, folate level, reticulocyte count. Continue with IV iron supplementation to finish a 5-day course. Transfuse 2 unit of blood transfusion while monitoring for fluid overload. 3. Uremia: 4. Lethargy: Most likely in setting of acute on chronic anemia and uremia along with UTI. Continue to monitor. 5. Heart failure with reduced ejection fraction: Currently patient is euvolemic. Last echocardiogram from November 2024 showed an EF of 40 to 45%, grade 2 diastolic dysfunction. Monitor for fluid overload. 6. CAD (coronary artery disease): No active chest pain. History of post PCI. Appreciate A1c, lipid panel. 7. High anion gap metabolic acidosis: 8. HTN (hypertension): Goal blood pressure less than 140/90 mmHg. Continue with home dose of Cardizem, Imdur. 9. VRE (vancomycin resistant enterococcus) culture positive: 10. Cystitis: 11. Chronic indwelling Conteh catheter: 12. Hydronephrosis of left kidney: Plan: History of atrial fibrillation: Monitor on telemetry. Currently rate controlled. Change Cardizem to 60 mg Q6 hourly. Continue home dose of amiodarone. Chronically not on anticoagulation due to history of anemia. UTI: Patient has chronic indwelling Conteh catheter. He denies dysuria. Does have leukocytosis. Lethargy could be in setting of UTI. History of Enterococcus VRE UTI. Follow-up blood culture and urine culture. Urine culture growing gram-negative rods. Continue with current linezolid and ceftriaxone. Given concerns for complicated UTI because of chronic indwelling Conteh catheter patient would need at least 7 to 10 days of treatment overall. Left sided hydronephrosis: Seen on CT abdomen pelvis. No concerns for obstructive nephropathy but concerns for Uretericstasis. Patient will need to continue to follow-up with urology as an outpatient. CODE STATUS: Discussed detail with the patient. Patient's daughter will be DPOA. He wants to be full code. But does not want dialysis even if it means he has been on diet without one. Protonix for PUD prophylaxis SCD for DVT prophylaxis if lower limb Dopplers negative for DVT. No medical prophylaxis as patient has anemia. Renal dialysis diet. PDMP PDMP Reviewed: Not Reviewed Attestations 2 Medical Necessity Statement*: Requires further hospitalization for management of acute on chronic renal failure, acute on chronic anemia requiring blood transfusion, UTI Diagnoses Acute on chronic renal failure N17.9; N18.9 Anemia due to chronic kidney disease N18.9; D63.1 Uremia N19 Lethargy R53.83 Heart failure with reduced ejection fraction I50.20 CAD (coronary artery disease) I25.10 High anion gap metabolic acidosis E87.29 HTN (hypertension) I10 VRE (vancomycin resistant enterococcus) culture positive Z22.39 Cystitis N30.90 Chronic indwelling Conteh catheter Z97.8 Hydronephrosis of left kidney N13.30
[2025-02-04] MEDS: cefTRIAXone 1,000 mg SDV 1000 MG IVP (14:17)
[2025-02-04] MEDS: iron sucrose 200 MG in sodium chloride 0.9% (100 ml) 100 ML 220 MG IV (14:49)
[2025-02-04 16:18] LABS: Anion Gap 20.4 (5-19); Blood Urea Nitrogen 80 mg/dL (8-23); Calcium 8.3 mg/dL (8.5-10.5); Carbon Dioxide 18 mmol/L (22-29); Chloride 96 mmol/L (98-107); Creatinine Clr Calc Pharmacy 10.7941; Glucose 84 mg/dL (65-115); Osmolality Calculated 295 mOsm/kg (285-295); Potassium 3.4 mmol/L (3.5-5.1); Sodium 131 mmol/L (136-145)
--- NOTE | 2025-02-04 19:11 | PC.NURSE ---
i unit prbc's infused as ordered .no s/sxs transfusion reaction noted
[2025-02-05] VITALS (8 sets, daily range): BP systolic 120–170; BP diastolic 53–73; PULSE 66–81; RESP 12–15; TEMP 36.5–37; O2SAT 94–98
[2025-02-05] MEDS: pantoprazole 40 mg SDV IVP ×2 (01:58→13:43)
[2025-02-05 04:17] LABS: Hematocrit 24.5 % (37-53); Hemoglobin 8.20 g/dL (11.27-16.99); Mean Corpuscular HGB Conc 33.5 g/dL (30-55); Mean Corpuscular Hemoglobin 28.7 pg (27-33); Mean Corpuscular Volume 85.7 fl (82-101); Nucleated Red Blood Cells % 0 %; Platelet Count 309 10^3/cmm (157-399); Red Blood Count 2.86 10^6/uL (3.85-5.65); White Blood Count 8.58 10^3/uL (3.29-11.43)
[2025-02-05 04:28] LABS: Alanine Aminotransferase 14 U/L (0-41); Albumin Level 3.5 g/dL (3.5-5.2); Alkaline Phosphatase 99 U/L (40-130); Anion Gap 20.1 (5-19); Aspartate Amino Transferase 7 U/L (0-40); Blood Urea Nitrogen 77 mg/dL (8-23); Calcium 8.7 mg/dL (8.5-10.5); Carbon Dioxide 20 mmol/L (22-29); Chloride 97 mmol/L (98-107); Creatinine Clr Calc Pharmacy 11.0600; Globulin 2.7 g/dL (1.3-4.6); Glucose 113 mg/dL (65-115); Magnesium 1.8 mg/dL (1.7-2.3); Osmolality Calculated 302 mOsm/kg (285-295); Potassium 3.1 mmol/L (3.5-5.1); Sodium 134 mmol/L (136-145); Total Protein 6.2 g/dL (6.6-8.7)
--- NOTE | 2025-02-05 10:18 | P.PN_ITS ---
Subjective 2 Subjective: denies any complaints Medications: Reviewed: Yes Vitals/I&O/Wt Last Vital Signs Temp 98.0 F 02/05/25 07:35 Pulse 73 02/05/25 07:35 Resp 13 02/05/25 07:35 BP 170/72 02/05/25 07:35 Pulse Ox 96 02/05/25 07:35 O2 Del Method Room Air 02/05/25 07:35 02/04/25 02/05/25 02/05/25 22:59 06:59 14:59 Intake Total 1040 / 3020 240 / 3260 1150 / 1150 Output Total 600 / 2050 1200 / 3250 Balance 440 / 970 -960 / 10 1150 / 1150 Weight last 48 hrs Weight 96.252 kg Weight 96.252 kg Weight 94.517 kg Weight 86.693 kg Weight 86.183 kg Physical Exam 2 Narrative: Patient awake , alert , in no acute distress, room air PERRLA S1-S2 regular rate and rhythm per report Lungs with decreased breath sounds bilaterally Abdomen soft nontender no pedal edema Urinary Catheter Management: Conteh: Cath Placed During This Visit: yes Reason for Continuing Indwelling Catheter: Accurate Measurement of Urinary Output in Critically Ill Patients Urinary Catheter Date of Insertion: 02/03/25 Urinary Catheter Time of Insertion: 14:00 Data 02/05/25 02:29 02/05/25 02:29 Micro: Microbiology 02/03/25 12:14 Blood Culture - Preliminary Blood NEGATIVE TO DATE 02/03/25 11:33 Blood Culture - Preliminary Blood NEGATIVE TO DATE 02/04/25 10:33 Bacterial Antigens - Final Urine Kidney 02/04/25 10:33 Legionella Urinary Antigen - Final Urine Catheterized 02/03/25 11:53 Urine Culture - Preliminary Urine,Clean Catch Gram Negative Rods A&P Assessment and plan 1. Anemia due to chronic kidney disease: Plan: 1. 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 Baseline creatinines are in the 4-5 range. Patient currently has MAYTE with a creatinine up to 7.4, likely ATN in the setting of acute infection did not. Nonoliguric, has uremia with a BUN of 87 and metabolic acidosis with a bicarbonate of 13. - on bicarbonate drip- switch to NS once bicarb level > 20 - Proposed initiation of dialysis if no improvement in renal function but patient declines dialysis at this time. - Will check urine electrolytes, avoid IV contrast studies - need to d/w POA - pts daughter to confirm pt wishes 2. Altered mental status/lethargy: Likely metabolic encephalopathy in the setting of uremia and UTI 3. Metabolic acidosis with high anion gap, in the setting of MAYTE, placed on bicarbonate drip 4. History of coronary artery disease, with with stents 5. History of CHF with ejection fraction 40%, holding diuretics Patient evaluated using audiovisual cart. Time spent 40 minutes PDMP PDMP Reviewed: Not Reviewed Attestations 2 Medical Necessity Statement*: per lily Coding Level of Care Code Acute Code for Chg Fwd Diagnoses Anemia due to chronic kidney disease N18.9; D63.1
--- NOTE | 2025-02-05 13:40 | P.PN_ITS ---
Subjective 2 Subjective: No acute vents overnight. Today morning patient seen laying comfortably in bed. Denies any nausea, vomiting, headache. Has remained hemodynamically stable and afebrile. Appreciate urine output in last 24 hours. Medications: Reviewed: Yes Vitals/I&O/Wt Last Vital Signs Temp 98.0 F 02/05/25 07:35 Pulse 73 02/05/25 07:35 Resp 13 02/05/25 07:35 BP 170/72 02/05/25 07:35 Pulse Ox 96 02/05/25 07:35 O2 Del Method Room Air 02/05/25 07:35 02/04/25 02/05/25 02/05/25 22:59 06:59 14:59 Intake Total 1040 / 3020 240 / 3260 2540 / 2540 Output Total 600 / 2050 1200 / 3250 Balance 440 / 970 -960 / 10 2540 / 2540 Weight last 48 hrs Weight 96.252 kg Weight 96.252 kg Weight 94.517 kg Weight 86.693 kg Physical Exam 2 Narrative: General: No acute distress, AO x3, chronically sick appearing, weak, pallor present HEENT: PERRLA, pupils bilaterally equal and reactive Chest: Normal vesicular breath sounds, no added sounds, equal good air entry bilaterally CVS: S1-S2 irregularly irregular, soft pansystolic murmurs at apex, no tachycardia, no gallops, no rubs Abdomen: Soft, nontender, no organomegaly, bowel sounds present Neuro: No focal deficits, no facial deformity, AO x3, power 5/5 in all limbs Urinary Catheter Management: Conteh: Cath Placed During This Visit: yes Reason for Continuing Indwelling Catheter: Accurate Measurement of Urinary Output in Critically Ill Patients Urinary Catheter Date of Insertion: 02/03/25 Urinary Catheter Time of Insertion: 14:00 Data 02/05/25 02:29 02/05/25 02:29 Micro: Microbiology 02/05/25 11:39 Occult Blood (FIT) - Final Stool Routine Collection 02/03/25 11:53 Urine Culture - Final Urine,Clean Catch Proteus mirabilis 02/03/25 12:14 Blood Culture - Preliminary Blood NEGATIVE TO DATE 02/03/25 11:33 Blood Culture - Preliminary Blood NEGATIVE TO DATE 02/04/25 10:33 Bacterial Antigens - Final Urine Kidney 02/04/25 10:33 Legionella Urinary Antigen - Final Urine Catheterized A&P Assessment and plan 1. Acute on chronic renal failure: Baseline creatinine of around 5-5.6. Currently more than 7. Appreciate nephrology recommendations. Patient used to be on hemodialysis till last year but then he decided not to pursue dialysis any further. Patient maintains he does not want to pursue any dialysis going forward. Metabolic acidosis seems to be resolving. Appropriate urine output. Will stop bicarb drip and switch to normal saline at 75 cc/h. Repeat BMP in afternoon. Replace potassium with 40 mg orally. 2. Anemia due to chronic kidney disease: Baseline hemoglobin around 7.8-7.9. Post 3 unit of blood transfusion. Hemoglobin today more than target of 8. Stool for occult blood positive. Patient denies any melena. Had EGD earlier this year which was reported normal. Could be in setting of anemia of chronic disease due to CKD. Appreciate iron panel, vitamin B12, folate level, reticulocyte count. Continue with IV iron supplementation to finish a 5-day course. Continue to monitor hemoglobin daily. If continues to trend down can consult surgery for possible need of repeat EGD and colonoscopy. For now continue with Protonix twice daily, add Carafate AC and at bedtime. 3. Cystitis: Appreciate urine culture with Proteus mirabilis. Appreciate sensitivities. Will switch from IV ceftriaxone and Linezolid from Cefepime 1 gm q12h. Will change dose as per creatinine clearance. Most likely will plan to finish a 7 to 10-day course of antibiotics. 4. Uremia: 5. Lethargy: Most likely in setting of acute on chronic anemia and uremia along with UTI. Continue to monitor. 6. Heart failure with reduced ejection fraction: Currently patient is euvolemic. Last echocardiogram from November 2024 showed an EF of 40 to 45%, grade 2 diastolic dysfunction. Monitor for fluid overload. 7. CAD (coronary artery disease): No active chest pain. History of post PCI. Appreciate A1c, lipid panel. 8. High anion gap metabolic acidosis: 9. HTN (hypertension): Goal blood pressure less than 140/90 mmHg. Continue with home dose of Cardizem, Imdur. Blood pressure is mildly elevated. Will increase the dose of Imdur to 60 mg oral daily. 10. VRE (vancomycin resistant enterococcus) culture positive: 11. Chronic indwelling Conteh catheter: 12. Hydronephrosis of left kidney: Plan: History of atrial fibrillation: Monitor on telemetry. Currently rate controlled. Change Cardizem to 60 mg Q6 hourly. Continue home dose of amiodarone. Chronically not on anticoagulation due to history of anemia. Left sided hydronephrosis: Seen on CT abdomen pelvis. No concerns for obstructive nephropathy but concerns for Uretericstasis. Patient will need to continue to follow-up with urology as an outpatient. Goals of care discussion: Discussed in detail with patient and his daughter over the phone. Daughter Ms. Velasco is also the DPOA. We discussed that patient has severe renal dysfunction which has been worsening which is making him to have metabolic acidosis, electrode abnormality without significant improvement even on treatment and most likely will require dialysis. Without dialysis he is at a higher risk of arrhythmias, worsening mentation, difficulty in breathing or sudden . Daughter verbalizes understanding and would want to honor patient's wishes of no dialysis. Also discussed about CODE STATUS. She stated she had recently discussed with the patient regarding the same and he wants to remain full code. For now would want him to remain full code. CODE STATUS: Discussed detail with the patient. Patient's daughter will be DPOA. He wants to be full code. But does not want dialysis even if it means he has been on diet without one. Protonix for PUD prophylaxis SCD for DVT prophylaxis if lower limb Dopplers negative for DVT. No medical prophylaxis as patient has anemia. Renal dialysis diet. PDMP PDMP Reviewed: Not Reviewed Attestations 2 Medical Necessity Statement*: Requires further hospitalization for management of MAYTE on CKD, acute on chronic anemia requiring blood transfusion, resistant Proteus mirabilis cystitis while safe discharge planning is sought Diagnoses Acute on chronic renal failure N17.9; N18.9 Anemia due to chronic kidney disease N18.9; D63.1 Cystitis N30.90 Uremia N19 Lethargy R53.83 Heart failure with reduced ejection fraction I50.20 CAD (coronary artery disease) I25.10 High anion gap metabolic acidosis E87.29 HTN (hypertension) I10 VRE (vancomycin resistant enterococcus) culture positive Z22.39 Chronic indwelling Conteh catheter Z97.8 Hydronephrosis of left kidney N13.30
[2025-02-05] MEDS: cefTRIAXone 1,000 mg SDV 1000 MG IVP (13:42)
[2025-02-05] MEDS: cefepime 1,000 mg SDV 1000 MG IVP (14:41)
[2025-02-05 15:58] LABS: Anion Gap 20.4 (5-19); Blood Urea Nitrogen 72 mg/dL (8-23); Calcium 8.5 mg/dL (8.5-10.5); Carbon Dioxide 20 mmol/L (22-29); Chloride 96 mmol/L (98-107); Glucose 145 mg/dL (65-115); Osmolality Calculated 300 mOsm/kg (285-295); Potassium 3.4 mmol/L (3.5-5.1); Sodium 133 mmol/L (136-145)
[2025-02-05 16:48] LABS: Creatinine Clr Calc Pharmacy 11.8227
[2025-02-05] MEDS: iron sucrose 200 MG in sodium chloride 0.9% (100 ml) 100 ML 220 MG IV (17:33)
[2025-02-06] VITALS (8 sets, daily range): BP systolic 133–165; BP diastolic 65–80; PULSE 68–81; RESP 12–17; TEMP 36.6–36.7; O2SAT 90–97
[2025-02-06] MEDS: pantoprazole 40 mg SDV IVP ×2 (01:33→14:28)
[2025-02-06] MEDS: cefepime 1,000 mg SDV 1000 MG IVP ×2 (01:33→14:27)
[2025-02-06 02:55] LABS: Hematocrit 24.2 % (37-53); Hemoglobin 8.10 g/dL (11.27-16.99); Mean Corpuscular HGB Conc 33.5 g/dL (30-55); Mean Corpuscular Hemoglobin 29.3 pg (27-33); Mean Corpuscular Volume 87.7 fl (82-101); Nucleated Red Blood Cells % 0 %; Platelet Count 305 10^3/cmm (157-399); Red Blood Count 2.76 10^6/uL (3.85-5.65); White Blood Count 8.77 10^3/uL (3.29-11.43)
[2025-02-06 03:15] LABS: Alanine Aminotransferase 12 U/L (0-41); Albumin Level 3.3 g/dL (3.5-5.2); Alkaline Phosphatase 90 U/L (40-130); Anion Gap 19.9 (5-19); Aspartate Amino Transferase 6 U/L (0-40); Blood Urea Nitrogen 67 mg/dL (8-23); Calcium 9.0 mg/dL (8.5-10.5); Carbon Dioxide 21 mmol/L (22-29); Chloride 98 mmol/L (98-107); Creatinine Clr Calc Pharmacy 11.4286; Globulin 2.8 g/dL (1.3-4.6); Glucose 90 mg/dL (65-115); Magnesium 1.8 mg/dL (1.7-2.3); Osmolality Calculated 299 mOsm/kg (285-295); Potassium 3.9 mmol/L (3.5-5.1); Sodium 135 mmol/L (136-145); Total Protein 6.1 g/dL (6.6-8.7)
--- NOTE | 2025-02-06 09:41 | P.PN_ITS ---
Subjective 2 Medications: Reviewed: Yes Vitals/I&O/Wt Last Vital Signs Temp 97.9 F 02/06/25 03:39 Pulse 81 02/06/25 08:26 Resp 13 02/06/25 08:26 BP 165/80 02/06/25 08:26 Pulse Ox 94 02/06/25 08:26 O2 Del Method Room Air 02/06/25 03:39 02/05/25 02/06/25 02/06/25 22:59 06:59 14:59 Intake Total 750 / 3650 976.25 / 4626.25 240 / 240 Output Total 750 / 2250 750 / 3000 Balance 0 / 1400 226.25 / 1626.25 240 / 240 Weight last 48 hrs Weight 95.345 kg Weight 96.252 kg Weight 96.252 kg Physical Exam 2 Narrative: Patient awake , alert , in no acute distress, room air PERRLA S1-S2 regular rate and rhythm per report Lungs with decreased breath sounds bilaterally Abdomen soft nontender no pedal edema Urinary Catheter Management: Conteh: Cath Placed During This Visit: yes Reason for Continuing Indwelling Catheter: Chronic Indwelling Urinary Catheter on Admission Urinary Catheter Date of Insertion: 02/03/25 Urinary Catheter Time of Insertion: 14:00 Data 02/06/25 02:23 02/06/25 02:23 Micro: Microbiology 02/05/25 11:39 Occult Blood (FIT) - Final Stool Routine Collection 02/03/25 11:53 Urine Culture - Final Urine,Clean Catch Proteus mirabilis A&P Assessment and plan 1. Anemia due to chronic kidney disease: Plan: 1. 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 Baseline creatinines are in the 4-5 range. Patient currently has MAYTE with a creatinine up to 7.4, likely ATN in the setting of acute infection did not. Nonoliguric, has uremia with a BUN of 87 and metabolic acidosis with a bicarbonate of 13. - on bicarbonate drip- switched to NS - can DC fluids once PO intake adequate - Proposed initiation of dialysis if no improvement in renal function but patient declines dialysis at this time. - avoid IV contrast studies 2. Altered mental status/lethargy: Likely metabolic encephalopathy in the setting of uremia and UTI, improved 3. Metabolic acidosis with high anion gap, in the setting of MAYTE,s/p bicarbonate drip 4. History of coronary artery disease, with with stents 5. History of CHF with ejection fraction 40%, holding diuretics Patient evaluated using audiovisual cart. Time spent 40 minutes PDMP PDMP Reviewed: Not Reviewed Attestations 2 Medical Necessity Statement*: per lily Coding Level of Care Code Acute Code for Chg Fwd Diagnoses Anemia due to chronic kidney disease N18.9; D63.1
--- NOTE | 2025-02-06 11:12 | P.PN_ITS ---
Subjective 2 Subjective: No acute events overnight. The morning examination patient lying comfortably in bed. Remains on room air. States feeling better. Denies any nausea, vomiting, headache. Medications: Reviewed: Yes Vitals/I&O/Wt Last Vital Signs Temp 97.9 F 02/06/25 03:39 Pulse 81 02/06/25 08:26 Resp 13 02/06/25 08:26 BP 165/80 02/06/25 08:26 Pulse Ox 94 02/06/25 08:26 O2 Del Method Room Air 02/06/25 03:39 02/05/25 02/06/25 02/06/25 22:59 06:59 14:59 Intake Total 750 / 3650 976.25 / 4626.25 240 / 240 Output Total 750 / 2250 750 / 3000 Balance 0 / 1400 226.25 / 1626.25 240 / 240 Weight last 48 hrs Weight 95.345 kg Weight 96.252 kg Weight 96.252 kg Physical Exam 2 Narrative: General: No acute distress, AO x3, chronically sick appearing, weak, pallor present HEENT: PERRLA, pupils bilaterally equal and reactive Chest: Normal vesicular breath sounds, no added sounds, equal good air entry bilaterally CVS: S1-S2 irregularly irregular, soft pansystolic murmurs at apex, no tachycardia, no gallops, no rubs Abdomen: Soft, nontender, no organomegaly, bowel sounds present Neuro: No focal deficits, no facial deformity, AO x3, power 5/5 in all limbs Urinary Catheter Management: Conteh: Cath Placed During This Visit: yes Reason for Continuing Indwelling Catheter: Chronic Indwelling Urinary Catheter on Admission Urinary Catheter Date of Insertion: 02/03/25 Urinary Catheter Time of Insertion: 14:00 Data 02/06/25 02:23 02/06/25 02:23 Micro: Microbiology 02/05/25 11:39 Occult Blood (FIT) - Final Stool Routine Collection 02/03/25 11:53 Urine Culture - Final Urine,Clean Catch Proteus mirabilis A&P Assessment and plan 1. Acute on chronic renal failure: Baseline creatinine of around 5-5.6. Currently more than 7. Appreciate nephrology recommendations. Patient used to be on hemodialysis till last year but then he decided not to pursue dialysis any further. Patient maintains he does not want to pursue any dialysis going forward. Metabolic acidosis seems to be resolving. Appropriate urine output. Will stop bicarb drip and switch to normal saline at 75 cc/h. Repeat BMP in afternoon. Replace potassium with 40 mg orally. 2. Anemia due to chronic kidney disease: Baseline hemoglobin around 7.8-7.9. Post 3 unit of blood transfusion. Hemoglobin today more than target of 8. Stool for occult blood positive. Patient denies any melena. Had EGD earlier this year which was reported normal. Could be in setting of anemia of chronic disease due to CKD. Appreciate iron panel, vitamin B12, folate level, reticulocyte count. Continue with IV iron supplementation to finish a 5-day course. Continue to monitor hemoglobin daily. If continues to trend down can consult surgery for possible need of repeat EGD and colonoscopy. For now continue with Protonix twice daily, add Carafate AC and at bedtime. 3. Cystitis: Appreciate urine culture with Proteus mirabilis. Appreciate sensitivities. Will switch from IV ceftriaxone and Linezolid from Cefepime 1 gm q12h. Will change dose as per creatinine clearance. Most likely will plan to finish a 7 to 10-day course of antibiotics. 4. Uremia: 5. Lethargy: Most likely in setting of acute on chronic anemia and uremia along with UTI. Continue to monitor. 6. Heart failure with reduced ejection fraction: Currently patient is euvolemic. Last echocardiogram from November 2024 showed an EF of 40 to 45%, grade 2 diastolic dysfunction. Monitor for fluid overload. 7. CAD (coronary artery disease): No active chest pain. History of post PCI. Appreciate A1c, lipid panel. 8. High anion gap metabolic acidosis: 9. HTN (hypertension): Goal blood pressure less than 140/90 mmHg. Continue with home dose of Cardizem, Imdur. Blood pressure is mildly elevated. Will increase the dose of Imdur to 60 mg oral daily. 10. VRE (vancomycin resistant enterococcus) culture positive: 11. Chronic indwelling Conteh catheter: 12. Hydronephrosis of left kidney: Plan: History of atrial fibrillation: Monitor on telemetry. Currently rate controlled. Change Cardizem to 60 mg Q6 hourly. Continue home dose of amiodarone. Chronically not on anticoagulation due to history of anemia. Left sided hydronephrosis: Seen on CT abdomen pelvis. No concerns for obstructive nephropathy but concerns for Uretericstasis. Patient will need to continue to follow-up with urology as an outpatient. Goals of care discussion: Discussed in detail with patient and his daughter over the phone. Daughter Ms. Velasco is also the DPOA. We discussed that patient has severe renal dysfunction which has been worsening which is making him to have metabolic acidosis, electrode abnormality without significant improvement even on treatment and most likely will require dialysis. Without dialysis he is at a higher risk of arrhythmias, worsening mentation, difficulty in breathing or sudden . Daughter verbalizes understanding and would want to honor patient's wishes of no dialysis. Also discussed about CODE STATUS. She stated she had recently discussed with the patient regarding the same and he wants to remain full code. For now would want him to remain full code. CODE STATUS: Discussed detail with the patient. Patient's daughter will be DPOA. He wants to be full code. But does not want dialysis even if it means he has been on diet without one. Protonix for PUD prophylaxis SCD for DVT prophylaxis if lower limb Dopplers negative for DVT. No medical prophylaxis as patient has anemia. Renal dialysis diet. Plan for the day: Creatinine stable at around 6. Mild improvement in uremia. Stable bicarb. Continue with NS at 75 cc/h. Monitor urine output. Repeat BMP in AM. Appreciate urine culture. Continue with IV cefepime. Will plan for 1 g every 12 hourly for next 7 days for complicated UTI. Will need to follow-up with urology as an outpatient. Monitor hemoglobin daily. So far stable. Continue with Protonix twice daily, Carafate ACHS. Goal blood pressure less than 140/90 mmHg. Continue with current dose of Cardizem, Imdur. PDMP PDMP Reviewed: Not Reviewed Attestations 2 Medical Necessity Statement*: Requires further hospitalization for management of complicated UTI, MAYTE on CKD in a patient who does not want hemodialysis, resolving metabolic acidosis, acute on chronic anemia requiring blood transfusion Diagnoses Acute on chronic renal failure N17.9; N18.9 Anemia due to chronic kidney disease N18.9; D63.1 Cystitis N30.90 Uremia N19 Lethargy R53.83 Heart failure with reduced ejection fraction I50.20 CAD (coronary artery disease) I25.10 High anion gap metabolic acidosis E87.29 HTN (hypertension) I10 VRE (vancomycin resistant enterococcus) culture positive Z22.39 Chronic indwelling Conteh catheter Z97.8 Hydronephrosis of left kidney N13.30
[2025-02-06] MEDS: iron sucrose 200 MG in sodium chloride 0.9% (100 ml) 100 ML 220 MG IV (17:56)
[2025-02-07] MEDS: pantoprazole 40 mg SDV IVP ×2 (01:50→14:35)
[2025-02-07] MEDS: cefepime 1,000 mg SDV 1000 MG IVP ×2 (01:50→13:18)
[2025-02-07 02:14] LABS: Hematocrit 24.6 % (37-53); Hemoglobin 7.90 g/dL (11.27-16.99); Mean Corpuscular HGB Conc 32.1 g/dL (30-55); Mean Corpuscular Hemoglobin 28.5 pg (27-33); Mean Corpuscular Volume 88.8 fl (82-101); Nucleated Red Blood Cells % 0 %; Platelet Count 290 10^3/cmm (157-399); Red Blood Count 2.77 10^6/uL (3.85-5.65); White Blood Count 9.48 10^3/uL (3.29-11.43)
[2025-02-07 02:32] LABS: Alanine Aminotransferase 10 U/L (0-41); Albumin Level 3.3 g/dL (3.5-5.2); Alkaline Phosphatase 93 U/L (40-130); Anion Gap 18.5 (5-19); Aspartate Amino Transferase 8 U/L (0-40); Blood Urea Nitrogen 55 mg/dL (8-23); Calcium 9.1 mg/dL (8.5-10.5); Carbon Dioxide 20 mmol/L (22-29); Chloride 100 mmol/L (98-107); Creatinine Clr Calc Pharmacy 12.1919; Globulin 2.9 g/dL (1.3-4.6); Glucose 79 mg/dL (65-115); Osmolality Calculated 294 mOsm/kg (285-295); Potassium 3.5 mmol/L (3.5-5.1); Sodium 135 mmol/L (136-145); Total Protein 6.2 g/dL (6.6-8.7)
[2025-02-07 04:00] VITALS: BP 143/75; PULSE 69; RESP 19; TEMP 36.8; O2SAT 97
[2025-02-07 06:00] VITALS: PULSE 69
--- NOTE | 2025-02-07 07:47 | PM.PN ---
Subjective Subjective: seen and examined. denies nausea, sob, cp. he urinates w/ a patel. states he is eating Medications: Reviewed: Yes Medication Review Details: Current Medications Acetaminophen (Acetaminophen 325 Mg Tablet) 650 mg PO Q6H PRN PRN Reason: Mild/Mod Pain Or Temp >/= 101 Alprazolam (Alprazolam 0.5 Mg Tablet) 0.5 mg PO Q8H PRN PRN Reason: ANXIETY Last Admin: 02/06/25 23:06 Dose: 0.5 mg Amiodarone HCl (Amiodarone 200 Mg Tablet) 200 mg PO DAILY [facility] Last Admin: 02/06/25 08:06 Dose: 200 mg Cefepime HCl (Cefepime 1,000 Mg Sdv) 1,000 mg IVP Q12H [facility]; Protocol Last Admin: 02/07/25 01:50 Dose: 1,000 mg Citalopram Hydrobromide (Citalopram 20 Mg Tablet) 20 mg PO DAILY [facility] Last Admin: 02/06/25 08:07 Dose: 20 mg Diltiazem HCl (Diltiazem 60 Mg Tablet) 60 mg PO Q6H [facility] Last Admin: 02/07/25 06:07 Dose: 60 mg Docusate Sodium (Docusate Sodium 100 Mg Capsule) 100 mg PO BID [facility] Last Admin: 02/06/25 17:50 Dose: Not Given Gabapentin (Gabapentin 100 Mg Capsule) 100 mg PO DAILY [facility] Last Admin: 02/06/25 08:06 Dose: 100 mg Iron Sucrose 200 mg/ Sodium (Chloride) 110 mls @ 220 mls/hr IV Q24H [facility] Stop: 02/07/25 16:59 Last Infusion: 02/06/25 19:13 Dose: Infused Sodium Chloride (Sodium Chloride 0.9%) 1,000 mls @ 75 mls/hr IV .[id number] [facility] Last Admin: 02/07/25 03:10 Dose: 75 mls/hr Isosorbide Mononitrate (Isosorbide Mononitrate Er 30 Mg Tablet) 60 mg PO DAILY [facility] Last Admin: 02/06/25 08:06 Dose: 60 mg Lactulose (Lactulose Oral Liq 20 Gm/30 Ml Udc) 10 gm PO DAILY PRN; Protocol PRN Reason: Constipation (see protocol) Magnesium Hydroxide (Magnesium Hydroxide 30 Ml Udc) 30 ml PO DAILY PRN; Protocol PRN Reason: Constipation (see protocol) Morphine Sulfate (Morphine 4 Mg/Ml Sdv 1 Ml) 2 mg IVP Q4H PRN PRN Reason: SEVERE PAIN Last Admin: 02/04/25 10:27 Dose: 2 mg Ondansetron HCl (Ondansetron 2 Mg/Ml Sdv 2 Ml) 4 mg IVP Q6H PRN PRN Reason: vomiting, or N/V if npo Pantoprazole Sodium (Pantoprazole 40 Mg Sdv) 40 mg IVP Q12H [facility] Last Admin: 02/07/25 01:50 Dose: 40 mg Sodium Bicarbonate (Sodium Bicarbonate 650 Mg Tablet) 650 mg PO BID [facility] Last Admin: 02/06/25 17:55 Dose: 650 mg Sucralfate (Sucralfate 1 Gm Tablet) 1 gm PO AC&BEDTIME [facility] Last Admin: 02/07/25 06:07 Dose: 1 gm Tramadol HCl (Tramadol 50 Mg Tablet) 50 mg PO QID [facility] Last Admin: 02/06/25 20:34 Dose: 50 mg Trazodone HCl (Trazodone 50 Mg Tablet) 50 mg PO BEDTIME [facility] Last Admin: 02/06/25 20:34 Dose: 50 mg Vitals/I&O/Wt Last Vital Signs Temp 98.2 F 02/07/25 04:00 Pulse 69 02/07/25 06:00 Resp 19 H 02/07/25 04:00 BP 143/75 02/07/25 04:00 Pulse Ox 97 02/07/25 04:00 O2 Del Method Room Air 02/07/25 04:00 02/06/25 02/07/25 02/07/25 22:59 06:59 14:59 Intake Total 110 / 1342.5 962.5 / 2305.0 Output Total 750 / 1850 1250 / 3100 Balance -640 / -507.5 -287.5 / -795.0 Weight last 48 hrs Weight 93.712 kg Weight 93.712 kg Weight 95.345 kg Physical Exam Narrative: Obese man comfortable in bed. No apparent distress. Vital signs noted. HEENT normocephalic atraumatic. Neck is supple no JVP. Lungs good air movement bilaterally heart regular Abdomen is soft positive bowel sounds. Extremities positive edema. Neuro left side is weak. Awake and alert has right-sided tremor. Oriented x 2+. Urinary Catheter Management: Patel: Cath Placed During This Visit: yes Reason for Continuing Indwelling Catheter: Chronic Indwelling Urinary Catheter on Admission Urinary Catheter Date of Insertion: 02/03/25 Urinary Catheter Time of Insertion: 14:00 Data 02/07/25 01:55 02/07/25 01:55 A&P Assessment and plan 1. Anemia due to chronic kidney disease: Plan: 1. 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 Baseline creatinines are in the 4-5 range. Patient currently has MAYTE with a creatinine up to 7.4, likely ATN in the setting of acute infection - CT scan noted:Kidneys and ureters: Increased prominence of the left renal pelvis and collecting structures of the left kidney noted in relation to prior exam suggesting [id number] hydronephrosis. No hydronephrosis is seen on the right. No ureterectasis is seen about either side. No renal or ureteral calculus identified. Renal function is stable. The patient also does not want dialysis. Would recommend the patient sees urology for question of stent. Is not concerned that his hydronephrosis may be a nidus for recurrent infections and also for worsening renal failure. 2. Metabolic acidosis has improved. Patient is off of bicarbonate drip. Will stop IV fluids. 3. Altered mental status lethargy is improving. 4. History of coronary artery disease, with with stents 5. History of CHF with ejection fraction 40%, he also has grade 2 diastolic dysfunction. 6. Anemia low iron saturation check ferritin level will give IV iron and Epogen. 7. Check PTH and vitamin D level. May need phosphate binder. Medications reviewed Patient evaluated using audiovisual cart. Patient consented to telehealth visit PDMP PDMP Reviewed: Not Reviewed Attestations Medical Necessity Statement*: CKD stage V patient does not want dialysis. Antibiotics for UTI. Time Spent in Patient Care: (>than 50% of time spent in counselling and/or direct pt care on unit). Coding Level of Care Code Acute Code for Chg Fwd Diagnoses Anemia due to chronic kidney disease N18.9; D63.1
[2025-02-07 08:00] VITALS: BP 147/54; PULSE 72; RESP 16; TEMP 36.6; O2SAT 97
[2025-02-07 08:50] LABS: Ferritin 540 ng/mL (30-400)
[2025-02-07 12:00] VITALS: BP 128/59; PULSE 71; RESP 20; TEMP 36.9; O2SAT 97
--- NOTE | 2025-02-07 12:22 | PICC.NOTE ---
Midline placed to right basilic vein. Referred to vascular access nurse for midline placement due to need for IV antibiotics x 7 days for UTI. Risks and benefits discussed and informed consent obtained from pt Krista ANDREWS, via phone. Right arm assessed with right basilic vein measuring 3.7 mm, straight, and apparent best choice for placement. Using sterile technique and MST, right basilic vein accessed x 1 stick. Mid-arm circumference measured 10 cm from right AC 34 cm. Trimmed cath 10 cm with 0 cm external length noted. Line secured with stat-lock. Insertion site covered with Biopatch and TSM. Report given to bedside nurse, KENNY Reardon.
--- NOTE | 2025-02-07 12:33 | PM.DCS ---
Discharge Providers Date of Admission: 02/03/25 13:36 Date of Discharge: February 07, 2025 Attending Provider at Admission: Baljit Marcelo MD Attending Provider at Discharge: Alyssa Ruelas MD Diagnoses at Discharge Discharge Diagnosis 1. Anemia due to chronic kidney disease: Reason for Visit Reason for Visit: [facility] Hospital Course Hospital Course 79-year-old gentleman with history of CKD, anemia due to renal disease with last endoscopy in September, chronic indwelling Conteh catheter presents from detention because of MAYTE on CKD, worsening anemia ultimately required 4 units of blood transfusion and IV hydration. Acidosis resolved. There were multiple discussions with patient and family who continued to refuse dialysis. Patient has indwelling Conteh catheter. Urine culture consistent with resistant Proteus mirabilis. Plan to discharge to detention on IV antibiotics with cefepime to complete a 10-day course given complicated UTI. Cefepime already ordered by admitting physician. Hemoglobin has been stable. Patient's baseline hemoglobin is 7.8-7.9. At time of discharge hemoglobin 7.9. He is back to his baseline. Patient was awaiting insurance authorization. He will be discharged to nursing facility in stable condition at this time. Discussed with sheet taker. Held Lasix at time of discharge. He will need to follow-up with his outpatient sheet taker. He will need follow-up with urologist at time of discharge. He was given follow-up labs to do in next 3 days. Patient did have mild to moderate hydronephrosis for which she will need to see urology. Physical Exam Narrative: General: No acute distress, AO x3, HEENT: PERRLA, pupils bilaterally equal and reactive Chest: Normal vesicular breath sounds, no added sounds, equal good air entry bilaterally CVS: S1-S2 irregularly irregular, soft pansystolic murmurs at apex, Abdomen: Soft, nontender, no organomegaly, bowel sounds present Neuro: No focal deficits, no facial deformity, AO x3, Urinary Catheter Management: Conteh: Cath Placed During This Visit: yes Reason for Continuing Indwelling Catheter: Chronic Indwelling Urinary Catheter on Admission Urinary Catheter Date of Insertion: 02/03/25 Urinary Catheter Time of Insertion: 14:00 Discharge Data Studies Completed and Pending Completed Studies During Hospitalization Category Date Time Status CT abdomen pelvis wo con [id number] Routine Cat Scan 02/03/25 14:26 Completed XR chest 1V portable [id number] Stat Exams 02/03/25 10:57 Completed XR shoulder LT min 2V* [id number] Stat Exams 02/03/25 11:16 Completed Pending at discharge Category Date Time Status Blood Culture Stat Lab 02/03/25 12:14 Results Comprehensive Metabolic Panel AM LABS Lab 02/08/25 04:00 Ordered Comprehensive Metabolic Panel AM LABS Lab 02/09/25 04:00 Ordered Comprehensive Metabolic Panel AM LABS Lab 02/10/25 04:00 Ordered Magnesium AM LABS Lab 02/08/25 04:00 Ordered Magnesium AM LABS Lab 02/09/25 04:00 Ordered Magnesium AM LABS Lab 02/10/25 04:00 Ordered PTH [Parathyroid With Calcium] AM LABS Lab 02/08/25 04:00 Ordered Phosphorus AM LABS Lab 02/08/25 04:00 Ordered Phosphorus AM LABS Lab 02/09/25 04:00 Ordered Phosphorus AM LABS Lab 02/10/25 04:00 Ordered Vitamin D 1,25 Dihydroxy Routine Lab 02/07/25 01:55 Received Radiology Impressions Chest X-Ray 02/03/25 10:57 IMPRESSION: 1. Cardiac enlargement unchanged. 2. Suspect infiltrate and/or atelectasis in the LEFT lower lobe. Mild RIGHT lower lobe atelectasis. Shoulder X-Ray 02/03/25 11:16 IMPRESSION: 1. End-stage osteoarthritis of the glenohumeral joint. No fracture. Abdomen/Pelvis CT 02/03/25 14:26 IMPRESSION: 1. Findings suggesting interval new increased prominence of the pelvicaliceal collecting structures of the left kidney in relation to the right in relation to previous exam suggesting [id number] hydronephrosis, without findings of ureterectasis without findings of urinary tract stone. Etiology of interval change not apparent. 2. Bilateral renal cysts appear unchanged with previous exam. 3. Conteh catheter within the urinary bladder which is not well distended and with mild generalized wall thickening. Correlate with urinalysis otherwise. 4. Chronic changes otherwise with previous exam as noted above. Laboratory Results WBC 9.48 10^3/uL (3.29-11.43) 02/07/25 01:55 RBC 2.77 10^6/uL (3.85-5.65) L 02/07/25 01:55 Hgb 7.90 g/dL (11.27-16.99) L 02/07/25 01:55 Hct 24.6 % (37-53) L 02/07/25 01:55 MCV 88.8 fl (82-101) 02/07/25 01:55 MCH 28.5 pg (27-33) 02/07/25 01:55 MCHC 32.1 g/dL (30-55) 02/07/25 01:55 RDW 14.6 % (12.1-15.1) 02/07/25 01:55 Plt Count 290 10^3/cmm (157-399) 02/07/25 01:55 MPV 8.6 fL (7.4-10.4) 02/07/25 01:55 Neut % (Auto) 67.5 % 02/07/25 01:55 Lymph % (Auto) 18.2 % 02/07/25 01:55 [place] % (Auto) 9.3 % 02/07/25 01:55 Eos % (Auto) 4.4 % 02/07/25 01:55 Baso % (Auto) 0.1 % 02/07/25 01:55 Reticulocyte % (Auto) 1.9 % (0.5-2.0) 02/03/25 11:16 Neut # (Auto) 6.39 10^3/uL (1.8-7.7) 02/07/25 01:55 Lymph # (Auto) 1.7 10^3/uL (0.8-4.8) 02/07/25 01:55 [place] # (Auto) 0.9 10^3/uL (0.2-0.9) 02/07/25 01:55 Eos # (Auto) 0.4 10^3/uL (0.0-0.8) 02/07/25 01:55 Baso # (Auto) 0.0 10^3/uL (0.0-0.1) 02/07/25 01:55 Nucleated RBC % (auto) 0 % 02/07/25 01:55 Nucleated RBCs # 0.0 /100WBC 02/07/25 01:55 Sodium 135 mmol/L (136-145) L 02/07/25 01:55 Potassium 3.5 mmol/L (3.5-5.1) 02/07/25 01:55 Chloride 100 mmol/L (98-107) 02/07/25 01:55 Carbon Dioxide 20 mmol/L (22-29) L 02/07/25 01:55 Anion Gap 18.5 (5-19) 02/07/25 01:55 BUN 55 mg/dL (8-23) H 02/07/25 01:55 Creatinine 5.6 mg/dL (0.7-1.2) H* 02/07/25 01:55 GFR Calculation Not Reportable 02/07/25 01:55 Glucose 79 mg/dL (65-115) 02/07/25 01:55 Estimat Average Glucose 111 02/03/25 11:16 Hemoglobin A1c 5.5 % (4.0-6.0) 02/03/25 11:16 Calculated Osmolality 294 mOsm/kg (285-295) 02/07/25 01:55 Lactic Acid 0.8 mmol/L (0.5-2.2) 02/03/25 11:16 Calcium 9.1 mg/dL (8.5-10.5) 02/07/25 01:55 Phosphorus 5.3 mg/dL (2.5-4.5) H 02/06/25 02:23 Magnesium 1.8 mg/dL (1.7-2.3) 02/06/25 02:23 Iron 29 ug/dL (59-158) L 02/03/25 11:16 TIBC 306 mcg/dl 02/03/25 11:16 % Saturation 9.4 % (20-50) L 02/03/25 11:16 Unsat Iron Binding 277 ug/dL (112-347) 02/03/25 11:16 Ferritin 540 ng/mL (30-400) H 02/07/25 01:55 Total Bilirubin 0.3 mg/dL (0.15-1.2) 02/07/25 01:55 AST 8 U/L (0-40) 02/07/25 01:55 ALT 10 U/L (0-41) 02/07/25 01:55 Alkaline Phosphatase 93 U/L (40-130) 02/07/25 01:55 Total Protein 6.2 g/dL (6.6-8.7) L 02/07/25 01:55 Albumin 3.3 g/dL (3.5-5.2) L 02/07/25 01:55 Globulin 2.9 g/dL (1.3-4.6) 02/07/25 01:55 Triglycerides 98 mg/dL (0-150) 02/04/25 03:47 Cholesterol 120 mg/dL (0-200) 02/04/25 03:47 LDL Cholesterol, Calc 66 mg/dL (50-129) 02/04/25 03:47 HDL Cholesterol 34 mg/dL (60-100) L 02/04/25 03:47 LDL/HDL Ratio 1.94 RATIO (0.00-3.22) 02/04/25 03:47 Cholesterol/HDL Ratio 3.53 mg/dL (1.0-5.00) 02/04/25 03:47 Vitamin B12 1117 pg/mL (232-1245) 02/03/25 11:16 Folate 4.5 ng/mL (4.5-32.2) 02/04/25 03:47 Procalcitonin 0.20 ng/mL (0-0.5) 02/04/25 03:47 Urine Color Yellow (Yellow) 02/03/25 11:53 Urine Appearance Cloudy (CLEAR) A 02/03/25 11:53 Urine pH 7.5 (5-7) 02/03/25 11:53 Ur Specific [place] 1.012 (1.005-1.030) 02/03/25 11:53 Urine Protein 2+ (Negative) A 02/03/25 11:53 Urine Glucose (UA) Negative (Normal) 02/03/25 11:53 Urine Ketones Negative (Negative) 02/03/25 11:53 Urine Blood Negative (Negative) 02/03/25 11:53 Urine Nitrate Positive (Negative) A 02/03/25 11:53 Urine Bilirubin Negative (Negative) 02/03/25 11:53 Urine Urobilinogen 0.2 mg/dL (Negative) 02/03/25 11:53 Ur Leukocyte Esterase 3+ (Negative) A 02/03/25 11:53 Urine RBC 0-2 /hpf (0-2) 02/03/25 11:53 Urine WBC 51-100 /hpf (0-5) H 02/03/25 11:53 Ur Squamous Epith Cells 0-5 /hpf (0-5) 02/03/25 11:53 Amorphous Sediment Not Reportable 02/03/25 11:53 Urine Bacteria 2+ /hpf (NONE) H 02/03/25 11:53 Hyaline Casts 1.65 /lpf 02/03/25 11:53 Blood Type O Positive 02/03/25 11:16 Rho(D) Type Rh positive 02/03/25 11:16 Antibody Screen Negative 02/03/25 11:16 Crossmatch See Detail 02/03/25 11:16 Vitals Last Vital Signs Temp 98.5 F 02/07/25 12:00 Pulse 71 02/07/25 12:00 Resp 20 H 02/07/25 12:00 BP 128/59 02/07/25 12:00 Pulse Ox 97 02/07/25 12:00 O2 Del Method Room Air 02/07/25 12:00 Discharge Plan Discharge Patient Disposition: Xfer SNF Condition: Stable Prescriptions: New sucralfate 1 gram Tablet 1 g PO AC&BEDTIME Qty: 60 0RF Continued alprazolam 0.5 mg tablet 0.5 mg PO Q8H PRN (Reason: Anxiety) nitroglycerin 0.4 mg tablet, sublingual 0.4 mg sublingual Q5M PRN (Reason: chest pain) Qty: 20 3RF Rx Instructions: do not exceed 3 doses per episode bisacodyl 10 mg Suppository 10 mg MT DAILY PRN (Reason: Constipation) diltiazem HCl 120 mg Tablet 240 mg PO DAILY amiodarone [Pacerone] 200 mg tablet 200 mg PO DAILY albuterol sulfate [Ventolin HFA] 90 mcg/actuation HFA aerosol inhaler 1 inh inhalation Q6H PRN (Reason: shortness of breath or wheezing) acetaminophen [Tylenol] 325 mg Tablet 650 mg PO QID PRN (Reason: Fever Or Pain) tramadol 50 mg tablet 50 mg PO QID gabapentin 100 mg capsule 100 mg PO DAILY polyethylene glycol 3350 [Miralax] 17 gram/dose Powder 17 g PO DAILY Fleet Enema 19-7 gram/118 mL Enema 118 ml MT DAILY PRN (Reason: Constipation) cyanocobalamin (vitamin B-12) 1,000 mcg/mL Solution 1,000 mcg SUBCUT DAILY albuterol sulfate 2.5 mg /3 mL (0.083 %) solution for nebulization 2.5 mg inhalation Q4H PRN (Reason: SOB) trazodone 50 mg tablet 50 mg PO BEDTIME artifi.tears(hypromellose)(PF) 1.7 % Drops With Applicator 1 drp OPHTHALMIC (EYE) BID PRN (Reason: Dry Eyes) ondansetron HCl 4 mg tablet 4 mg PO Q4H PRN (Reason: Nausea And Vomiting) docusate sodium [Colace] 100 mg Capsule 100 mg PO DAILY citalopram 20 mg tablet 20 mg PO DAILY sodium bicarbonate 650 mg Tablet 650 mg PO BID 30 Days Qty: 60 3RF Changed isosorbide mononitrate 30 mg tablet extended release 24 hr 60 mg PO DAILY Qty: 90 3RF pantoprazole 40 mg tablet,delayed release (DR/EC) 40 mg PO BIDWMEAL Qty: 60 0RF Held furosemide [Lasix] 40 mg tablet 40 mg PO BIDWM 30 Days Qty: 60 0RF Hold Instructions: see sheet taker outpatient Discontinued dextromethorphan-guaifenesin [Robitussin Cough-Chest Andrzej DM] 5-100 mg/5 mL Liquid 10 ml PO Q4H PRN (Reason: Cough) acyclovir 200 mg capsule 200 mg PO Q12H Carrier Driver OK for DC: Hospitalist Other Ambulatory Orders: Complete Blood Count w/Auto (Routine) Timeframe: 3 Days Location: Determined by Patient Ordered By: Alyssa uRelas Comprehensive Metabolic Panel (Routine) Timeframe: 3 Days Facility: [facility] - Location: Lab - Main Lab Ordered By: Alyssa Ruelas Referrals: Counts Include [facility] Nephrology [Outside] - 1-3 days Efrain Dow [Referring, Urology] - 1-3 days Alon Kovacs MD [Physician, Internal Medicine] - 1-3 days Discharge Diet: As Directed Discharge Activity: As per PT/OT instructions Patient Instructions: Sucralfate (By mouth) (Carafate), Altered Mental Status (ED), Pain Management Activity Restrictions/Additional Instructions: Renal dialysis diet Discharge Attestations Time Spent in Discharge Care*: greater than 30 min Status at Discharge: Cognitive status at discharge: cognitively intact, Behavioral status at discharge: cooperative, Quality Metrics Clinical Quality Measures [ No reported AMI, CVA or VTE this stay] Coding Level of Care Code Acute Code for Chg Fwd Diagnoses Anemia due to chronic kidney disease N18.9; D63.1
[2025-02-07] MEDS: iron sucrose 200 MG in sodium chloride 0.9% (100 ml) 100 ML 220 MG IV (13:19)
[2025-02-07 16:00] VITALS: BP 151/71; PULSE 68; RESP 20; TEMP 36.6; O2SAT 97
--- NOTE | 2025-02-07 16:11 | PC.SOCIAL ---
IMM updated IMM dated and initialed, Copy placed in chart and copy given to patient
--- NOTE | 2025-02-07 17:57 | PC.NURSE ---
report phoned to [facility].ems here to transport pt.discharged at this time
[2025-02-14 12:26] LABS: Vit D 1,25 (Oh)2, Total <8 pg/mL (18-72); Vit D2 1,25 (Oh)2 <8 pg/mL; Vit D3 1,25 (Oh)2 <8 pg/mL
== END 2025-02-07 17:58 | disposition skilled nursing facility (03) | DRG 698 ==
LOC: ER 12:14 → CSU 13:36
PROVIDERS: Internal Medicine Nephrology; Admitting Provider Student in an Organized Health Care Education/Training Program; Emergency Provider Family Medicine; Visit Provider Internal Medicine
DX: T83.518A Infection and inflammatory reaction due to other urinary catheter, initial encounter (principal); G93.41 Metabolic encephalopathy; J18.9 Pneumonia, unspecified organism; N17.0 Acute kidney failure with tubular necrosis; I50.22 Chronic systolic (congestive) heart failure; E87.20 Acidosis, unspecified; Z16.30 Resistance to unspecified antimicrobial drugs; I13.2 Hypertensive heart and chronic kidney disease with heart failure and with stage 5 chronic kidney disease, or end stage renal disease; N18.5 Chronic kidney disease, stage 5; N13.6 Pyonephrosis; Y82.9 Unspecified medical devices associated with adverse incidents; E13.22 Other specified diabetes mellitus with diabetic chronic kidney disease; I11.0 Hypertensive heart disease with heart failure; D63.1 Anemia in chronic kidney disease; B96.4 Proteus (mirabilis) (morganii) as the cause of diseases classified elsewhere; Z79.891 Long term (current) use of opiate analgesic; F03.90 Unspecified dementia, unspecified severity, without behavioral disturbance, psychotic disturbance, mood disturbance, and anxiety; G47.33 Obstructive sleep apnea (adult) (pediatric); Z86.718 Personal history of other venous thrombosis and embolism; I69.920 Aphasia following unspecified cerebrovascular disease; Z87.891 Personal history of nicotine dependence; I48.91 Unspecified atrial fibrillation; E78.5 Hyperlipidemia, unspecified; I25.10 Atherosclerotic heart disease of native coronary artery without angina pectoris; I25.2 Old myocardial infarction; N40.0 Benign prostatic hyperplasia without lower urinary tract symptoms; J45.998 Other asthma
CPT/HCPCS: 36415; 36430; 36569; 51702; 71045; 73030; 74176; 80048; 80053; 80061; 81001; 82274; 82607; 82652; 82728; 82746; 83036; 83540; 83550; 83605; 83735; 84100; 84145; 85025; 85045; 86403; 86850; 86900; 86920; 87040; 87077; 87086; 87186; 87449; 93005; 94664; 96365; 96375; 96376; 97110; 97161; 97165; 99285; 99291; A9270; C1751; J0456; J0692; J0696; J1756; J2270; J2470; J7030; J7050; J7070; J9999; P9016; Q0144; Q3014

== ENCOUNTER → 2025-02-10 07:49 | Outpatient (BNVA) | payer MEDICARE, MEDICAID, SELFPAY | PROVIDERS: PCP Internal Medicine; Visit Provider Orthopaedic Surgery | DX: M19.012 Primary osteoarthritis, left shoulder (principal) | CPT/HCPCS: 20610; 99204; J3301; J3490; J9999 ==

== ENCOUNTER 2025-02-23 09:38 | Oncology outpatient (recurring) (ONCR) | payer MEDICARE, MEDICAID, SELFPAY ==
[2025-02-23 11:12] LABS: Hematocrit 33.5 % (37-53); Hemoglobin 10.30 g/dL (11.27-16.99); Mean Corpuscular HGB Conc 30.7 g/dL (30-55); Mean Corpuscular Hemoglobin 29.3 pg (27-33); Mean Corpuscular Volume 95.2 fl (82-101); Nucleated Red Blood Cells % 0 %; Platelet Count 454 10^3/cmm (157-399); Red Blood Count 3.52 10^6/uL (3.85-5.65); White Blood Count 14.91 10^3/uL (3.29-11.43)
[2025-02-23 11:55] LABS: Alanine Aminotransferase 56 U/L (0-41); Albumin Level 4.0 g/dL (3.5-5.2); Alkaline Phosphatase 104 U/L (40-130); Anion Gap 27.6 (5-19); Aspartate Amino Transferase 12 U/L (0-40); Calcium 9.7 mg/dL (8.5-10.5); Carbon Dioxide 10 mmol/L (22-29); Chloride 102 mmol/L (98-107); Creatinine Clr Calc Pharmacy 11.2502; Ferritin 723 ng/mL (30-400); Globulin 3.8 g/dL (1.3-4.6); Glucose 120 mg/dL (65-115); Iron 78 ug/dL (59-158); Osmolality Calculated 314 mOsm/kg (285-295); Potassium 4.6 mmol/L (3.5-5.1); Sodium 135 mmol/L (136-145); Total Iron Binding Capacity 205 mcg/dl; Total Protein 7.8 g/dL (6.6-8.7); Unsaturated Iron Binding 127 ug/dL (112-347); Vitamin B12 1194 pg/mL (232-1245)
[2025-02-23 12:34] LABS: Blood Urea Nitrogen 105 mg/dL (8-23)
== END 2025-02-24 23:59 | disposition home or self-care (01) ==
PROVIDERS: Internal Medicine; PCP Internal Medicine; Visit Provider Internal Medicine
DX: Z53.9 Procedure and treatment not carried out, unspecified reason (principal); D63.1 Anemia in chronic kidney disease; N18.9 Chronic kidney disease, unspecified; Z87.891 Personal history of nicotine dependence; I50.9 Heart failure, unspecified; G20.C Parkinsonism, unspecified; N13.30 Unspecified hydronephrosis; N17.9 Acute kidney failure, unspecified
CPT/HCPCS: 36415; 80053; 82607; 82728; 82746; 83010; 83540; 83550; 83615; 85025; 85045; 85651; 99204